=== PATIENT | male | born 1970 | race American Indian/Alaskan Native ===

== ENCOUNTER 2018-10-09 10:27 | Inpatient (IN) | payer MEDICAID ==
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
[2018-10-09] MEDS ORDERED: SUBLIMAZE IV ONE (10:52)
[2018-10-09] MEDS ORDERED: NITRO-BID 2% TP ONE (10:52)
[2018-10-09] MEDS ORDERED: ZOFRAN IV ONE (10:52)
[2018-10-09] MEDS ORDERED: ASPIRIN PO ONE (10:53)
--- NOTE | 2018-10-09 11:34 | XRay Report ---
AP CHEST: HISTORY: chest pain No comparison. Moderate cardiomegaly, moderate pulmonary venous congestion and small to medium right pleural effusion are identified. There is compressive atelectasis at the right lung base. Otherwise, the lungs are generally clear. No pneumothorax. IMPRESSION: Moderate CHF.
[2018-10-09 11:53] LABS: Basophils % (Auto) 0.7 % (0.0-1.8); Eosinophils # (Auto) 0.2 K/mm3 (0.0-0.4); Eosinophils % (Auto) 4.6 % (0.0-4.3); Hematocrit 25.8 % (35.5-45.6); Hemoglobin 8.4 gm/dl (11.8-15.2); Lymphocytes # (Auto) 0.5 K/mm3 (1.2-5.4); Mean Corpuscular HGB Conc 32 % (32-34); Mean Corpuscular Volume 85 fl (84-94); Monocytes # (Auto) 0.4 K/mm3 (0.0-0.8); Monocytes % (Auto) 12.1 % (0.0-7.3); Platelet Count 296 K/mm3 (140-440); Red Blood Count 3.03 M/mm3 (3.65-5.03); Red Cell Distribution Width 18.7 % (13.2-15.2)
[2018-10-09 11:54] LABS: Creatine Kinase MB 20.5 ng/mL (0.0-4.0)
[2018-10-09 11:55] LABS: Calcium 8.4 mg/dL (8.4-10.2)
[2018-10-09 12:01] LABS: INR 0.94 (0.87-1.13)
[2018-10-09 12:02] LABS: Partial Thromboplastin Time 42.8 Sec. (24.2-36.6)
[2018-10-09 12:10] LABS: Chol/HDL Ratio 1.57 %
--- NOTE | 2018-10-09 12:40 | History and Physical Report ---
History of Present Illness Chief complaint: Confusion, and chest pain History of present illness: 48 YO Male currently an inpatient at [facility] for Psychosis with Obesity, HTN, DM, HLD, Anemia, Systolic CHF presents to ED for evaluation. The patient is confused and lethargic at time of exam. Pt is unable to provide detailed history. Pt history taken from EMS as well as ED Staff, and [facility] staff. As per staff, the patient reported chest pain to [facility] staff. EMS notified and patient was subsequently transported to [facility] for further care and evaluation. Pt seen and evaluated in ED and found to have ARF, ACS, CHF as well as NSTEMI. Pt found to be hypotensive in ED with systolic BP in the 80's. Pt initiated on IV pressor support. Pt admitted to ICU. Cardiology team consulted. Past History Past Medical History: diabetes, heart failure, hypertension, hyperlipidemia Past Surgical History: Other (Left Hip surgery) Social history: single. denies: smoking, alcohol abuse, prescription drug abuse Family history: diabetes, hypertension Medications and Allergies Allergies Allergy/AdvReac Type Severity Reaction Status Date / Time No Known Allergies Allergy Unverified 10/09/18 10:44 Home Medications Medication Instructions Recorded Confirmed Last Taken Type Carvedilol [Coreg] 3.125 mg PO BID 10/09/18 10/09/18 Unknown History Divalproex [Darby PADRON] 500 mg PO BID 10/09/18 10/09/18 Unknown History Ferrous Sulfate [Feosol] 325 mg PO QDAY 10/09/18 10/09/18 Unknown History Furosemide [Lasix] 80 mg PO DAILY 10/09/18 10/09/18 Unknown History Gabapentin [Neurontin] 300 mg PO Q8HR 10/09/18 10/09/18 Unknown History ISOSORBIDE MONOnitrate [Imdur ER] 30 mg PO DAILY 10/09/18 10/09/18 Unknown History Insulin Glargine,Hum.rec.anlog 40 units SQ QHS 10/09/18 10/09/18 Unknown History [Lantus] Magnesium Oxide [Mag-Ox] 400 mg PO DAILY 10/09/18 10/09/18 Unknown History Simvastatin [Zocor TAB] 20 mg PO QHS 10/09/18 10/09/18 Unknown History Sulfamethoxazole/Trimethoprim 1 each PO BID 10/09/18 10/09/18 Unknown History [Bactrim DS TAB] glipiZIDE [Glipizide] 10 mg PO DAILY 10/09/18 10/09/18 Unknown History hydrALAZINE [Apresoline TAB] 100 mg PO BID 10/09/18 10/09/18 Unknown History risperiDONE [RisperDAL] 1 mg PO QHS 10/09/18 10/09/18 Unknown History Active Meds: Active Medications Norepinephrine (Levophed Drip 4 Mg/Ns 250 Ml) 4 mg in 250 mls @ 7.5 mls/hr IV TITR JAMIL; Protocol Review of Systems ROS unobtainable: due to mental status Exam - Constitutional Vitals: Temp Pulse Resp BP Pulse Ox 98.2 F 45 L 9 L 85/49 98 10/09/18 10:39 10/09/18 12:16 10/09/18 12:16 10/09/18 12:16 10/09/18 12:16 General appearance: Present: mild distress, obese - EENT Eyes: Present: miosis ENT: hearing intact, clear oral mucosa - Neck Neck: Present: supple, normal ROM - Respiratory Respiratory effort: labored Respiratory: bilateral: diminished, rhonchi - Cardiovascular Heart Sounds: Present: S1 & S2. Absent: rub, click - Extremities Extremity abnormal: edema Peripheral Pulses: within normal limits - Abdominal General gastrointestinal: Present: soft, non-tender, non-distended, normal bowel sounds Male genitourinary: Present: normal - Integumentary Integumentary: Present: clear, warm, dry - Musculoskeletal Musculoskeletal: generalized weakness - Psychiatric Psychiatric: no appropriate mood/affect, no intact judgment & insight, no memory intact - Neurologic Neurologic: no focal deficits, no gait normal Results - Labs CBC & Chem 7: 10/09/18 11:22 10/09/18 11:22 Labs: Abnormal lab results 10/09/18 10/09/18 10/09/18 Range/Units 11:22 11:22 11:22 WBC 3.3 L (4.5-11.0) K/mm3 RBC 3.03 L (3.65-5.03) M/mm3 Hgb 8.4 L (11.8-15.2) gm/dl Hct 25.8 L (35.5-45.6) % RDW 18.7 H (13.2-15.2) % [place] % (Auto) 12.1 H (0.0-7.3) % Eos % (Auto) 4.6 H (0.0-4.3) % Lymph # 0.5 L (1.2-5.4) K/mm3 APTT 42.8 H (24.2-36.6) Sec. Potassium 5.2 H (3.6-5.0) mmol/L Chloride 108.2 H (98-107) mmol/L BUN 49 H (9-20) mg/dL Creatinine 1.9 H (0.8-1.5) mg/dL Glucose 153 H (75-100) mg/dL Total Creatine Kinase 481 H (55-170) units/L CK-MB (CK-2) 20.5 H (0.0-4.0) ng/mL CK-MB (CK-2) Rel Index 4.2 H (0-4) Troponin T 0.153 H* (0.00-0.029) ng/mL NT-Pro-B Natriuret Pep 2963 H (0-450) pg/mL LDL Cholesterol Direct 49 L (50-130) mg/dL HDL Cholesterol 73 H (40-59) mg/dL Assessment and Plan - Patient Problems (1) NSTEMI (non-ST elevated myocardial infarction) Current Visit: Yes Status: Acute Plan to address problem: Cardiology consulted in ED, serial cardiac enzymes, serial ekg, echo, heparin drip, cardiology consulted in ED, Continue IV pressor support to maintain MAP greater than or equal to 60 The high probability of a clinically significant, sudden or life threatening deterioration of the [cardiac, neuro, renal] system(s) required my full and direct attention, intervention and personal management. The aggregate critical care time was [65] minutes. This time is in addition to time spent performing r eported procedures but includes the following: [x] Data Review and interpretation [x] Patient assessment and monitoring of vital signs [x] Documentation [x] Medication orders and management (2) ARF (acute renal failure) with tubular necrosis Current Visit: Yes Status: Acute Plan to address problem: IVf resuscitation as tolerated, supportive care, monitor uop q shift, (3) Encephalopathy Current Visit: Yes Status: Acute Plan to address problem: CT Head, neuro checks, aspiration precautions, seizure precautions. (4) ACS (acute coronary syndrome) Current Visit: Yes Status: Acute Plan to address problem: Admit to ICU, serial cardiac enzymes, Serial EKG, telemetry, morphine, supplemental oxygen,nitro, aspirin, cardiology consulted in ED. (5) CHF (congestive heart failure) Current Visit: Yes Status: Acute Qualifiers: Heart failure type: systolic Heart failure chronicity: acute Qualified Code(s): I50.21 - Acute systolic (congestive) heart failure Plan to address problem: Admit to ICU, Cardiology consulted in ED, Echo, strict I/O, monitor uop q shift, daily weight, chest x ray, BNP, supplemental oxygen, diuresis as tolerated, afterload reduction. (6) DVT prophylaxis Current Visit: Yes Status: Acute Plan to address problem: SCD to BLE while in bed.
[2018-10-09] MEDS ORDERED: SODIUM CHLORIDE FLUSH SYRINGE 10 ML IV PRN ×2 (13:00→14:11)
[2018-10-09] MEDS ORDERED: LEVOPHED DRIP 4 MG/NS 250 ML 4 MG/250 ML BAG IV SCH (13:00)
[2018-10-09] MEDS ORDERED: NACL 0.9% 1000 ML 2,000 ML ONE (13:27)
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
[2018-10-09] MEDS ORDERED: HEPARIN/ 0.45% NACL-25,000 UNIT/500 ML 25,000 UNIT/500 ML BAG IV SCH (15:00)
[2018-10-09 15:07] LABS: Hematocrit 26.2 % (35.5-45.6); Hemoglobin 8.2 gm/dl (11.8-15.2); INR 0.94 (0.87-1.13)
[2018-10-09 15:08] LABS: Partial Thromboplastin Time 42.4 Sec. (24.2-36.6)
--- NOTE | 2018-10-09 16:30 | Cat Scan Report ---
FINAL REPORT EXAM: CT HEAD/BRAIN WO CON HISTORY: confusion TECHNIQUE: CT head without contrast PRIORS: None. FINDINGS: No acute intra-axial or extra-axial hemorrhage is identified. There is no evidence of midline shift or mass effect. The ventricles and sulci are within normal limits. Maher-white matter differentiation is intact. No acute parenchymal abnormalities seen. Bony calvarium is grossly intact. Visualized portions of the mastoids and paranasal sinuses are unre markable. IMPRESSION: Negative CT head
[2018-10-09] MEDS ORDERED: NACL 0.9% 1000 ML 1,000 ML ONE (17:43)
[2018-10-09] MEDS ORDERED: PRAVACHOL PO SCH (22:00)
[2018-10-09] MEDS ORDERED: NON-FORMULARY (Simvastatin 20 MG) PO SCH (22:00)
[2018-10-10] MEDS: NEURONTIN PO SCH ×4 (00:42→22:06)
[2018-10-10] MEDS: SODIUM CHLORIDE FLUSH SYRINGE 10 ML IV SCH ×3 (00:42→22:07)
[2018-10-10] MEDS: LANTUS SUB-Q SCH ×2 (00:43→22:03)
[2018-10-10] MEDS: PRAVACHOL PO SCH ×2 (00:43→22:07)
[2018-10-10] MEDS: RisperDAL PO SCH ×2 (00:43→22:06)
[2018-10-10] MEDS ORDERED: D5W 1,000 ML IV SCH (01:00)
[2018-10-10 06:28] LABS: Basophils % (Auto) 0.6 % (0.0-1.8); Eosinophils # (Auto) 0.2 K/mm3 (0.0-0.4); Eosinophils % (Auto) 5.8 % (0.0-4.3); Hematocrit 25.9 % (35.5-45.6); Hemoglobin 8.2 gm/dl (11.8-15.2); Lymphocytes # (Auto) 0.5 K/mm3 (1.2-5.4); Lymphocytes % (Auto) 16.4 % (13.4-35.0); Mean Corpuscular HGB Conc 32 % (32-34); Mean Corpuscular Volume 87 fl (84-94); Monocytes # (Auto) 0.4 K/mm3 (0.0-0.8); Monocytes % (Auto) 13.2 % (0.0-7.3); Platelet Count 307 K/mm3 (140-440); Red Blood Count 2.99 M/mm3 (3.65-5.03); Red Cell Distribution Width 19.2 % (13.2-15.2)
[2018-10-10 06:36] LABS: Calcium 8.1 mg/dL (8.4-10.2)
[2018-10-10] MEDS ORDERED: MAG-OX PO SCH (10:00)
[2018-10-10] MEDS: FEOSOL PO SCH (10:57)
[2018-10-10] MEDS: ASPIRIN PO SCH (10:57)
--- NOTE | 2018-10-10 10:58 | Consultation ---
History of Present Illness Consult date: 10/10/18 Requesting physician: MARANDA HAYWOOD Reason for consult: other (NSTEMI; SHOCK) History of present illness: PULMONARY/CCM CONSULT NOTE (Full dictation # [id number]) Please see dictated notes for full details Past History Past Medical History: diabetes, heart failure, hypertension, hyperlipidemia Past Surgical History: Other (Left Hip surgery) Social history: single. denies: smoking, alcohol abuse, prescription drug abuse Family history: diabetes, hypertension Medications and Allergies Allergies Allergy/AdvReac Type Severity Reaction Status Date / Time No Known Allergies Allergy Unverified 10/09/18 10:44 Home Medications Medication Instructions Recorded Confirmed Last Taken Type Carvedilol [Coreg] 3.125 mg PO BID 10/09/18 10/09/[address] [Leonardo DURAN] 500 mg PO BID 10/09/18 10/09/18 Unknown History Ferrous Sulfate [Feosol] 325 mg PO QDAY 10/09/18 10/09/18 Unknown History Furosemide [Lasix] 80 mg PO DAILY 10/09/18 10/09/18 Unknown History Gabapentin [Neurontin] 300 mg PO Q8HR 10/09/18 10/09/18 Unknown History ISOSORBIDE MONOnitrate [Imdur ER] 30 mg PO DAILY 10/09/18 10/09/18 Unknown History Insulin Glargine,Hum.rec.anlog 40 units SQ QHS 10/09/18 10/09/18 Unknown History [Lantus] Magnesium Oxide [Mag-Ox] 400 mg PO DAILY 10/09/18 10/09/18 Unknown History Simvastatin [Zocor TAB] 20 mg PO QHS 10/09/18 10/09/18 Unknown History Sulfamethoxazole/Trimethoprim 1 each PO BID 10/09/18 10/09/18 Unknown History [Bactrim DS TAB] glipiZIDE [Glipizide] 10 mg PO DAILY 10/09/18 10/09/18 Unknown History hydrALAZINE [Apresoline TAB] 100 mg PO BID 10/09/18 10/09/18 Unknown History risperiDONE [RisperDAL] 1 mg PO QHS 10/09/18 10/09/18 Unknown History Active Meds: Active Medications Aspirin (Aspirin) 325 mg PO QDAY JAMIL Divalproex Sodium (Leonardo Duran) 500 mg PO BID [facility] Last Admin: 10/10/18 00:43 Dose: Not Given Documented by: Ferrous Sulfate (Feosol) 325 mg PO QDAY JAMIL Gabapentin (Neurontin) 300 mg PO Q8HR [facility] Last Admin: 10/10/18 07:01 Dose: Not Given Documented by: Norepinephrine (Levophed Drip 4 Mg/Ns 250 Ml) 4 mg in 250 mls @ 7.5 mls/hr IV TITR JAMIL; Protocol Last Titration: 10/10/18 03:14 Dose: 2 mcg/min, 7.5 mls/hr Documented by: Heparin Sodium/Sodium Chloride (Heparin/ 0.45% Nacl-25,000 Unit/500 Ml) 25,000 unit in 500 mls @ 20 mls/hr IV TITRATE JAMIL; Protocol Last Titration: 10/10/18 05:00 Dose: 1,100 units/hr, 22 mls/hr Documented by: Dextrose (D5w) 1,000 mls @ 75 mls/hr IV DIRECT [facility] Last Infusion: 10/10/18 06:30 Dose: 100 mls/hr Documented by: Insulin Glargine (Lantus) 40 units SUB-Q QHS [facility] Last Admin: 10/10/18 00:43 Dose: Not Given Documented by: Pravastatin Sodium (Pravachol) 40 mg PO QHS [facility] Last Admin: 10/10/18 00:43 Dose: Not Given Documented by: Risperidone (Risperdal) 1 mg PO QHS [facility] Last Admin: 10/10/18 00:43 Dose: Not Given Documented by: Sodium Chloride (Sodium Chloride Flush Syringe 10 Ml) 10 ml IV BID [facility] Last Admin: 10/10/18 00:42 Dose: Not Given Documented by: Sodium Chloride (Sodium Chloride Flush Syringe 10 Ml) 10 ml IV PRN PRN PRN Reason: LINE FLUSH Physical Examination Vital signs: Vital Signs Temp Pulse Resp BP Pulse Ox 98.2 F 51 L 16 110/68 99 10/09/18 10:39 10/09/18 10:39 10/09/18 10:39 10/09/18 10:39 10/09/18 10:39 Results - Laboratory Findings CBC and BMP: 10/10/18 05:00 10/10/18 05:00 PT/INR, D-dimer PT 13.0 Sec. (12.2-14.9) 10/09/18 14:25 INR 0.94 (0.87-1.13) 10/09/18 14:25 Abnormal lab findings: Abnormal Labs 10/09/18 10/09/18 10/09/18 11:22 11:22 11:22 WBC 3.3 L RBC 3.03 L Hgb 8.4 L Hct 25.8 L MCH RDW 18.7 H Boyd % (Auto) 12.1 H Eos % (Auto) 4.6 H Lymph # 0.5 L APTT 42.8 H Heparin Anti-Xa Level Potassium 5.2 H Chloride 108.2 H BUN 49 H Creatinine 1.9 H Glucose 153 H POC Glucose Calcium Total Creatine Kinase 481 H CK-MB (CK-2) 20.5 H CK-MB (CK-2) Rel Index 4.2 H Troponin T 0.153 H* NT-Pro-B Natriuret Pep 2963 H LDL Cholesterol Direct 49 L HDL Cholesterol 73 H 10/09/18 10/09/18 10/09/18 13:43 14:25 14:25 WBC RBC Hgb 8.2 L Hct 26.2 L MCH RDW Boyd % (Auto) Eos % (Auto) Lymph # APTT 42.4 H Heparin Anti-Xa Level Potassium Chloride BUN Creatinine Glucose POC Glucose 167 H Calcium Total Creatine Kinase CK-MB (CK-2) CK-MB (CK-2) Rel Index Troponin T NT-Pro-B Natriuret Pep LDL Cholesterol Direct HDL Cholesterol 10/09/18 10/09/18 10/09/18 17:28 20:56 21:23 WBC RBC Hgb Hct MCH RDW Boyd % (Auto) Eos % (Auto) Lymph # APTT Heparin Anti-Xa Level 0.28 L Potassium Chloride BUN Creatinine Glucose POC Glucose Calcium Total Creatine Kinase CK-MB (CK-2) CK-MB (CK-2) Rel Index Troponin T 0.136 H* 0.139 H* NT-Pro-B Natriuret Pep LDL Cholesterol Direct HDL Cholesterol 10/10/18 10/10/18 10/10/18 00:10 05:00 05:00 WBC 3.3 L RBC 2.99 L Hgb 8.2 L Hct 25.9 L MCH 27 L RDW 19.2 H Boyd % (Auto) 13.2 H Eos % (Auto) 5.8 H Lymph # 0.5 L APTT Heparin Anti-Xa Level Potassium 5.6 H Chloride 110.8 H BUN 50 H Creatinine 2.2 H Glucose 52 L POC Glucose 60 L Calcium 8.1 L Total Creatine Kinase CK-MB (CK-2) CK-MB (CK-2) Rel Index Troponin T NT-Pro-B Natriuret Pep LDL Cholesterol Direct HDL Cholesterol 10/10/18 06:11 WBC RBC Hgb Hct MCH RDW Boyd % (Auto) Eos % (Auto) Lymph # APTT Heparin Anti-Xa Level Potassium Chloride BUN Creatinine Glucose POC Glucose 57 L Calcium Total Creatine Kinase CK-MB (CK-2) CK-MB (CK-2) Rel Index Troponin T NT-Pro-B Natriuret Pep LDL Cholesterol Direct HDL Cholesterol
--- NOTE | 2018-10-10 11:00 | Progress Note ---
Assessment and Plan Assessment: Acute heart failure Altered mental status - head CT with NAF MAXIMO / hyperkalemia Hypotension - requiring vasopressor support NSTEMI type II Sinus bradycardia Anemia HTN DM HLP ? h/o psych disorder Plan: Troponin elevation c/w NSTEMI type II. ECG with NAF, pt denies chest pain. D/c heparin gtt. Serum Cr increased this AM. Pt would benefit from IV diuretics once renal indices permit. Recommend nephrology consultation per primary. Repeat BMP in AM. Await echo. Wean vasopressors as tolerated. The patient has been seen in conjunction with Dr. Berkowitz who agrees with the assessment and plan of care. Subjective Date of service: 10/10/18 Principal diagnosis: HF Interval history: pt resting in bed, remains lethargic but more alert today. no current complaints. wants to eat. levophed gtt infusing. Objective Last Vital Signs Temp 93.7 F L 10/10/18 08:00 Pulse 67 10/10/18 09:00 Resp 15 10/10/18 09:00 BP 108/83 10/10/18 09:00 Pulse Ox 95 10/10/18 09:00 - Physical Examination General: No Apparent Distress HEENT: Positive: PERRL, Normocephaly, Mucus Membranes Moist Neck: Positive: neck supple, trachea midline Cardiac: Positive: Reg Rate and Rhythm, S1/S2 Lungs: Positive: Decreased Breath Sounds Neuro: Positive: Grossly Intact Abdomen: Negative: Tender Musculoskeletal: No Pain Extremities: Present: +2 Edema (BLE pitting, weeping ) - Labs and Meds Cardiac Enzymes 10/09/18 Range/Units 11:22 CK-MB (CK-2) 20.5 H (0.0-4.0) ng/mL Coagulation 10/09/18 10/09/18 Range/Units 11:22 14:25 PT 13.0 13.0 (12.2-14.9) Sec. INR 0.94 0.94 (0.87-1.13) APTT 42.8 H 42.4 H (24.2-36.6) Sec. Lipids 10/09/18 Range/Units 11:22 Triglycerides 24 (2-149) mg/dL Cholesterol 115 (50-199) mg/dL HDL Cholesterol 73 H (40-59) mg/dL Cholesterol/HDL Ratio 1.57 % CBC 0110/09/18 10/10/18 Range/Units 11:22 14:25 05:00 WBC 3.3 L 3.3 L (4.5-11.0) K/mm3 RBC 3.03 L 2.99 L (3.65-5.03) M/mm3 Hgb 8.4 L 8.2 L 8.2 L (11.8-15.2) gm/dl Hct 25.8 L 26.2 L 25.9 L (35.5-45.6) % Plt Count 296 296 307 (140-440) K/mm3 Lymph # 0.5 L 0.5 L (1.2-5.4) K/mm3 [place] # 0.4 0.4 (0.0-0.8) K/mm3 Eos # 0.2 0.2 (0.0-0.4) K/mm3 Baso # 0.0 0.0 (0.0-0.1) K/mm3 Comprehensive Metabolic Panel 10/09/18 10/10/18 Range/Units 11:22 05:00 Sodium 141 144 (137-145) mmol/L Potassium 5.2 H 5.6 H (3.6-5.0) mmol/L Chloride 108.2 H 110.8 H (98-107) mmol/L Carbon Dioxide 23 24 (22-30) mmol/L BUN 49 H 50 H (9-20) mg/dL Creatinine 1.9 H 2.2 H (0.8-1.5) mg/dL Glucose 153 H 52 L (75-100) mg/dL Calcium 8.4 8.1 L (8.4-10.2) mg/dL - Imaging and Cardiology EKG: report reviewed, image reviewed Echo: pending - Telemetry EKG Rhythm: Sinus Rhythm - EKG Sinus rhythms and dysrhythmias: sinus bradycardia
[2018-10-10] MEDS: D50W (25GM) Syringe IV PRN (11:31)
[2018-10-10] MEDS ORDERED: HEPARIN/ 0.45% NACL-25,000 UNIT/500 ML 25,000 UNIT/500 ML BAG IV SCH (12:00)
[2018-10-10] MEDS ORDERED: LEVAQUIN PO SCH (12:00)
[2018-10-10] MEDS: HumuLIN R SUB-Q SCH ×3 (12:13→22:03)
[2018-10-10] MEDS: PEPCID PO SCH (13:00)
[2018-10-10] MEDS: D5/0.45NS 1,000 ML IV SCH ×2 (13:01→22:56)
[2018-10-10] MEDS ORDERED: SODIUM BICARBONATE IV ONE (14:56)
--- NOTE | 2018-10-10 15:31 | Vascular Lab Report ---
FINAL REPORT EXAM: VL VENOUS DUPLEX LE BILAT HISTORY: swelling bilaterally TECHNIQUE: Maher scale with color flow and spectral waveform Doppler imaging. PRIORS: None. FINDINGS: There is no evidence of deep venous thrombosis in either lower extremity. Flow is demonstrated by color flow and spectral waveform Doppler imaging. There is appropriate augmentation and wall compression. IMPRESSION: There is no evidence for DVT in right or left lower extremity.
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
--- NOTE | 2018-10-10 15:50 | XRay Report ---
FINAL REPORT EXAM: XR CHEST 1V AP HISTORY: R arm PICC placement TECHNIQUE: Frontal chest radiograph. PRIORS: None. FINDINGS: Right upper extremity PICC tip lies in the region of the left brachiocephalic vein. The cardiac silho uette is enlarged. Patchy ground-glass opacities are seen throughout the right lung. There is likely bilateral pulmonary edema. Moderate right pleural effusion is seen. No pneumothorax. No acute osseous abnormality. IMPRESSION: 1. Right upper extremity PICC tip lying in the region of the left brachiocephalic vein. 2. Cardiomegaly with bilateral pulmonary edema and moderate right pleural effusion. Patchy right lung opacities may reflect atelectasis versus pneumonia.
[2018-10-10] MEDS ORDERED: KIONEX PR ONE (21:22)
--- NOTE | 2018-10-10 21:47 | Consultation ---
PULMONARY CRITICAL CARE CONSULTATION CONSULTING PHYSICIAN: Dr. Regalado. REASON FOR CONSULTATION: Shock and non-ST elevation myocardial infarction. CHIEF COMPLAINT AND HISTORY OF PRESENT ILLNESS: As follows: The patient is a 48-year-old -Swiss male with a past medical history significant amongst other things for a diagnosis of diabetes and heart failure, who was apparently a resident of [facility] for psychosis. He came into the Emergency Room, confused, lethargic, EMS staff reported patient complained of chest pain at [facility]. In the ER, he was found to have an acute kidney injury, acute coronary syndrome, was hypotensive, diagnosed with a non-ST elevation myocardial infarction and systolic blood pressures in the 80s. He was started on Levophed drip, brought up to the Intensive Care Unit where I stopped by to see him. When I stopped by to see him, he was resting in bed, still a little bit delirious if you ask me. He denied any chest pain. He denied palpitations. He denied prior nausea, vomiting, or overt aspiration. He denied any fevers or chills, but in reality, he was a poor historian. He has lower extremity swelling bilaterally that he states it is not new. That really is as much of the history of presentation as I have. PAST MEDICAL HISTORY: Diabetes, cardiomyopathy, hypertension, hyperlipidemia, history of psychosis, and history of seizures. He is obese. PAST SURGICAL HISTORY: He has had left hip surgery. MEDICATIONS: He was on at the time I stopped by to see him were reviewed. Pertinent medications included the following: Aspirin 325 mg p.o. daily, Depakote 500 mg p.o. b.i.d., Pepcid 20 mg p.o. daily, Feosol 325 mg p.o. daily, Neurontin 300 mg p.o. q.8 hours. He was on an IV heparin drip for the acute coronary syndrome. Levophed drip was going at 4 mcg per minute, Pravachol 40 mg p.o. at bedtime, Risperdal 1 mg p.o. at bedtime. ALLERGIES: No known drug allergies. DIET: Obese gentleman. Denies acute weight loss or gain in the preceding few weeks to months. FAMILY AND SOCIAL HISTORY: He was a resident of [facility] prior to coming here. Denies alcohol, tobacco, or illicit drug use or abuse. Family history is otherwise unknown. REVIEW OF SYSTEMS: No overt loss of consciousness. He had some seizure type activity. No gross hematochezia or melena. No gross hematuria or dysuria. No hematemesis. No hemoptysis since he has been here. He denied chest pains or palpitations when I saw him. Denies heat or cold intolerance. He did say he was thirsty, but denied polydipsia. Complete 13-system review of systems obtained as best as I could. Pertinent positives and/or negatives as in body of history above, otherwise they are noncontributory. PHYSICAL EXAMINATION: VITAL SIGNS: At initial presentation on the , his temperature is 98.2 Fahrenheit; however, the next temperature I see was earlier today it is 93.7 degrees Fahrenheit rectally. Again, presentation of vitals pulse was 51 at presentation, respiratory rate was 16, blood pressure 110/68, O2 sats were 99%, inspired oxygen concentration was not recorded. At the time I saw him was 98% on 2 liters nasal cannula. GENERAL: He is a middle-aged -Swiss male, lying in bed under warming blanket, normocephalic, atraumatic, talking to me when he does talk in full sentences with mildly increased respiratory effort at worst. HEAD, EYES, EARS, NOSE AND THROAT: He is anicteric. No conjunctival erythema. Oropharynx is moist. Mallampati #3 oropharynx. No gross jugular venous distention, no thyromegaly. Grossly, no palpable lymph nodes in the supraclavicular or submandibular lymph node chains. LUNGS: Auscultation of both lung gabriel unremarkable. Good bilateral air movement, slightly diminished left lower lobe air entry. No wheezing. HEART: Heart sounds 1 and 2 are heard. They were regular in rate and rhythm at the time of my evaluation without rubs or murmurs. ABDOMEN: Full, soft. Bowel sounds are positive, nontender. No palpable hepatosplenomegaly. EXTREMITIES: Without overt digital clubbing or cyanosis. He does have 2+ bipedal pitting edema. Dorsalis pedis pulses are weakly palpable bilaterally. NEUROLOGIC: Pupils are equal, round, about 3 mm, reactive to light. Extraocular muscles and movements were intact. He moved all 4 extremities spontaneously. Sensation was reduced in the feet bilaterally. SKIN: Poor turgor. He had what looked like ischemic type rashes to the right foot without any open sores. LABORATORY DATA: From my review are as follows: Admission white count 3300 with a hemoglobin of 8.4, hematocrit of 25.8, platelet count of 296. No manual differential. INR was 0.98. Serum sodium was 141, potassium 5.2, chloride 108, bicarbonate 23, BUN 49, creatinine 1.9, glucose 153. CPK was 481, CK-MB 20.5. Troponin is 0.153. BNP 2963, that was the peak of the troponin. His hemoglobin today is 8.2. Arterial blood gas just ordered shows a pH of 7.29, pCO2 of 47, pO2 of 65 that was on room air. Serum sodium 144, potassium 5.6, chloride 111 and bicarbonate 24, BUN is 50 and creatinine is up to 2.2, glucose was low earlier at 52. Radiographic studies have been reviewed. I have a chest x-ray from yesterday clearly shows small bilateral pleural effusions, gross cardiomegaly and interstitial edema pattern really. A CT scan of the brain was done, it was a negative CT scan of the head. ASSESSMENT: 1. Sepsis syndrome. 2. Shock, cardiogenic versus septic. 3. Acute encephalopathy. 4. Possible seizures. 5. History of diabetes. 6. Leukopenia. 7. Anemia that is normocytic. 8. Acute hypercapnic respiratory acidosis. 9. Hyperkalemia. 10. Acute kidney injury. 11. Non-ST elevation myocardial infarction. 12. Hypoglycemia. 13. Possible peripheral vascular disease. 14. Obesity. PLAN: Cardiology apparently has decided to stop the IV heparin, does not seem like they are going to do much more medical management will be the way forward for Cardiology. We will continue supplemental oxygen to keep sats greater than or equal to about 90% in this relatively sedentary patient; however, I will continue the IV heparin until we have done a venous thromboembolic disorder workup. A stat D-dimer level will be ordered, bilateral lower extremity Dopplers also going to be ordered. He has been started on GI prophylaxis. I will draw 2 sets of blood cultures and begin empiric Levaquin monotherapy. Nephrology evaluation will be in order in this patient with the acute worsening kidney injury and signs of volume overload. I do feel that gentle diuresis might actually be in order at some point in this gentleman, but we will wait to see the 2D echocardiogram and what his ejection fraction actually looks like. Levophed is being weaned to keep MAP greater than or equal to about 65 mmHg for now. We will change IV fluids to D5 half NS while he is still hypotensive and keep an eye on his sugars. He has been started on sliding scale insulin. Flu and pneumonia vaccination will be addressed per protocol. I will offer bilevel positive airway pressure ventilation therapy scheduled at bedtime with p.r.n. daytime use for likely obstructive sleep apnea. Thank you very much for the consult Dr. Regalado. We will follow along and make further recommendations as picture progresses/becomes clearer. He is critically ill on life-sustaining interventions including vasopressor support and supplemental oxygen at high risk for decompensation including the risk of from decompensation of the cardiopulmonary systems. I should also mention a stat EEG has been ordered to rule out active seizures and a Neurology consult has been placed. We will follow along. We will make further recommendations as picture progresses/becomes clearer. JOB# [id number] JAGUAR/TRUPTI NDIAYE
[2018-10-10 23:23] LABS: Bacteria,Urine 1+ /HPF (Negative); Bilirubin,Urine NEG (Negative); Blood,Urine NEG (Negative); Color,Urine Amber (Yellow); Hyaline Casts,Urine 1 /LPF; Mucus,Urine FEW /HPF
[2018-10-10 23:25] LABS: Creatinine,Urine 118.6 mg/dL (0.1-20.0); Protein/Creatinine Ratio,Urine 1.28
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
[2018-10-11 04:58] LABS: Hematocrit 27.9 % (35.5-45.6); Hemoglobin 8.7 gm/dl (11.8-15.2)
[2018-10-11 05:19] LABS: Calcium 7.6 mg/dL (8.4-10.2)
[2018-10-11] MEDS: NEURONTIN PO SCH ×3 (06:00→21:29)
[2018-10-11] MEDS ORDERED: KIONEX PO NR (06:36)
--- NOTE | 2018-10-11 08:57 | Consultation ---
History of Present Illness - Reason for Consult Consult date: 10/11/18 acute renal failure, hyperkalemia - History of Present Illness The patient is a 48 YO Male with history significant for Obesity, HTN, DM, HLD, Anemia, Systolic CHF and Psychosis who was brought into [facility] ER from [facility] for evaluation of AMS. Pt was unable to provide a detailed history. Patient reportedly had chest pain at [facility]. On further evaluation he was found to have low BP, MAXIMO, Hyperkalemia, Elevated troponin and volume overlaod. Pt admitted to ICU. Nephrology was consulted for worsening MAXIMO. Past History Past Medical History: diabetes, heart failure, hypertension, hyperlipidemia Past Surgical History: Other (Left Hip surgery) Social history: single. denies: smoking, alcohol abuse, prescription drug abuse Family history: diabetes, hypertension Medications and Allergies Allergies Allergy/AdvReac Type Severity Reaction Status Date / Time No Known Allergies Allergy Unverified 10/09/18 10:44 Home Medications Medication Instructions Recorded Confirmed Last Taken Type Carvedilol [Coreg] 3.125 mg PO BID 10/09/18 10/09/[address] [DepaKOTE DR] 500 mg PO BID 10/09/18 10/09/18 Unknown History Ferrous Sulfate [Feosol] 325 mg PO QDAY 10/09/18 10/09/18 Unknown History Furosemide [Lasix] 80 mg PO DAILY 10/09/18 10/09/18 Unknown History Gabapentin [Neurontin] 300 mg PO Q8HR 10/09/18 10/09/18 Unknown History ISOSORBIDE MONOnitrate [Imdur ER] 30 mg PO DAILY 10/09/18 10/09/18 Unknown History Insulin Glargine,Hum.rec.anlog 40 units SQ QHS 10/09/18 10/09/18 Unknown History [Lantus] Magnesium Oxide [Mag-Ox] 400 mg PO DAILY 10/09/18 10/09/18 Unknown History Simvastatin [Zocor TAB] 20 mg PO QHS 10/09/18 10/09/18 Unknown History Sulfamethoxazole/Trimethoprim 1 each PO BID 10/09/18 10/09/18 Unknown History [Bactrim DS TAB] glipiZIDE [Glipizide] 10 mg PO DAILY 10/09/18 10/09/18 Unknown History hydrALAZINE [Apresoline TAB] 100 mg PO BID 10/09/18 10/09/18 Unknown History risperiDONE [RisperDAL] 1 mg PO QHS 10/09/18 10/09/18 Unknown History Active Meds: Active Medications Aspirin (Aspirin) 325 mg PO QDAY [facility] Last Admin: 10/10/18 10:57 Dose: 325 mg Documented by: Dextrose (D50w (25gm) Syringe) 50 ml IV PRN PRN PRN Reason: Hypoglycemia Last Admin: 10/10/18 11:31 Dose: 50 ml Documented by: Dextrose (D50w (25gm) Vial) 50 gm IV ONCE ONE Stop: 10/11/18 07:39 Divalproex Sodium (Depakote Dr) 500 mg PO BID [facility] Last Admin: 10/10/18 22:10 Dose: 500 mg Documented by: Famotidine (Pepcid) 20 mg PO DAILY [facility] Last Admin: 10/10/18 13:00 Dose: 20 mg Documented by: Ferrous Sulfate (Feosol) 325 mg PO QDAY [facility] Last Admin: 10/10/18 10:57 Dose: 325 mg Documented by: Gabapentin (Neurontin) 300 mg PO Q8HR [facility] Last Admin: 10/11/18 06:00 Dose: 300 mg Documented by: Norepinephrine (Levophed Drip 4 Mg/Ns 250 Ml) 4 mg in 250 mls @ 7.5 mls/hr IV TITR [facility]; Protocol Last Titration: 10/10/18 12:02 Dose: 0 mcg/min, 0 mls/hr Documented by: Dextrose/Sodium Chloride (D5/0.45ns) 1,000 mls @ 100 mls/hr IV DIRECT JAMIL Stop: 10/11/18 21:59 Last Admin: 10/10/18 22:56 Dose: 100 mls/hr Documented by: Dextrose/Sodium Chloride (D5/0.45ns) 1,000 mls @ 50 mls/hr IV DIRECT JAMIL Calcium Gluconate 2,000 mg/ (Sodium Chloride) 120 mls @ 660 mls/hr IV ONCE ONE Stop: 10/11/18 07:48 Insulin Glargine (Lantus) 40 units SUB-Q QHS [facility] Last Admin: 10/10/18 22:03 Dose: Not Given Documented by: Insulin Human Regular (Humulin R) 0 units SUB-Q ACHS [facility]; Protocol Last Admin: 10/10/18 22:03 Dose: Not Given Documented by: Insulin Human Regular (Humulin R) 5 units SUB-Q ONCE ONE Stop: 10/11/18 07:39 Levofloxacin (Levaquin) 750 mg PO Q48HR [facility] Stop: 10/18/18 10:01 Last Admin: 10/10/18 15:02 Dose: 750 mg Documented by: Pravastatin Sodium (Pravachol) 40 mg PO QHS [facility] Last Admin: 10/10/18 22:07 Dose: 40 mg Documented by: Risperidone (Risperdal) 1 mg PO QHS [facility] Last Admin: 10/10/18 22:06 Dose: 1 mg Documented by: Sodium Bicarbonate (Sodium Bicarbonate) 50 meq IV ONCE ONE Stop: 10/11/18 07:39 Sodium Chloride (Sodium Chloride Flush Syringe 10 Ml) 10 ml IV BID [facility] Last Admin: 10/10/18 22:07 Dose: 10 ml Documented by: Sodium Chloride (Sodium Chloride Flush Syringe 10 Ml) 10 ml IV PRN PRN PRN Reason: LINE FLUSH Review of Systems ROS unobtainable: due to mental status (unable to obtain detalied ROS due to dysarthria) Exam - Vital Signs Vital signs: Vital Signs Temp Pulse Resp BP Pulse Ox 98.2 F 51 L 16 110/68 99 10/09/18 10:39 10/09/18 10:39 10/09/18 10:39 10/09/18 10:39 10/09/18 10:39 - General Appearance General appearance: well-developed, well-nourished, appears stated age, obese, other (not in distress) EENT: ATNC, PERRL, mucous membranes moist, hearing intact, vision intact Neck: Present: neck supple, trachea midline Respiratory: Rales Heart: regular, S1S2, no murmurs Gastrointestinal: Present: normoactive bowel sounds, obese. Absent: tenderness, distended Integumentary: warm and dry Neurologic: no asterixis, other (able to move extremities, conversing, extremity tremors noted, oriented to self, person, place and date) Musculoskeletal: Present: other (dependent and 1+ LE edema noted) Psychiatric: cooperative Results - Lab Results 10/11/18 04:31 10/11/18 04:31 Most recent lab results Calcium 7.6 mg/dL (8.4-10.2) L 10/11/18 04:31 Urine Creatinine 118.6 mg/dL (0.1-20.0) H 10/10/18 22:30 Urine Sodium 35 mmol/L 10/10/18 22:30 Urine Total Protein 152 mg/dL (5-11.8) H 10/10/18 22:30 - Image Kidney/bladder ultrasound: report reviewed Assessment and Plan 1. Acute kidney injury: MAXIMO likely Vasomotor / hemodynamic mediated in the setting of hypotension. Renal function continue to decline. UA and Renal US results noted. Currently on IV fluids. Hemodialysis today due to hyperkalemia. D/w patient about the indications, benefits and risks involved in hemodialysis. He was able to understand the treatment plan including hemodialysis and also the risks involved in the treatment and not doing hemodialysis. Called his and left VM. D/w . Vascular consulted for hemodialysis catheter placement. 2. FEN: On IV fluids. Hyperkalemia, HD today. 3. CHF exacerbation: Dobutamine drip. 4. Hypotension: Midodrine. 5. Anemia: Monitor.
[2018-10-11] MEDS ORDERED: NACL 0.9% 100 ML IV PRN ×2 (09:33→13:23)
[2018-10-11] MEDS ORDERED: ALBURX 25% (ALBUMIN) IV PRN (09:35)
--- NOTE | 2018-10-11 09:54 | Progress Note ---
Assessment and Plan Assessment: Acute HFrEF Cardiomyopathy - EF 35% Altered mental status - head CT with NAF Acute renal failure / hyperkalemia Hypotension NSTEMI type II - ECG with NAF, pt denies chest pain Sinus bradycardia Anemia HTN DM HLP ? h/o psych disorder Plan: Echo reviewed - EF 35%. Currently weaned off levophed. Initiate dobutamine at 2.5mcg/kg/min. Nephrology consultation in progress - for HD today pending vascular access. Psych consult pending. The patient has been seen in conjunction with Dr. Hernandez who agrees with the assessment and plan of care. Subjective Date of service: 10/11/18 Principal diagnosis: HF Interval history: pt resting in bed, remains lethargic. no current complaints. eating breakfast. levophed gtt currently weaned off. Objective Last Vital Signs Temp 98.8 F 10/11/18 03:31 Pulse 64 10/11/18 07:00 Resp 11 L 10/11/18 07:00 BP 99/65 10/11/18 07:00 Pulse Ox 98 10/11/18 07:00 - Physical Examination General: No Apparent Distress HEENT: Positive: PERRL, Normocephaly, Mucus Membranes Moist Neck: Positive: neck supple, trachea midline Cardiac: Positive: Reg Rate and Rhythm, S1/S2 Lungs: Positive: Decreased Breath Sounds Neuro: Positive: Grossly Intact Abdomen: Negative: Tender Musculoskeletal: No Pain Extremities: Present: +2 Edema (BLE pitting, weeping ) - Labs and Meds CBC 10/11/18 Range/Units 04:31 Hgb 8.7 L (11.8-15.2) gm/dl Hct 27.9 L (35.5-45.6) % Plt Count 347 (140-440) K/mm3 Comprehensive Metabolic Panel 10/11/18 Range/Units 04:31 Sodium 140 (137-145) mmol/L Potassium 6.6 H* (3.6-5.0) mmol/L Chloride 106.0 (98-107) mmol/L Carbon Dioxide 23 (22-30) mmol/L BUN 55 H (9-20) mg/dL Creatinine 2.9 H (0.8-1.5) mg/dL Glucose 80 (75-100) mg/dL Calcium 7.6 L (8.4-10.2) mg/dL - Imaging and Cardiology EKG: report reviewed, image reviewed Echo: pending - EKG Sinus rhythms and dysrhythmias: sinus bradycardia
[2018-10-11] MEDS ORDERED: D50W (25GM) Syringe IV ONE (10:00)
[2018-10-11] MEDS ORDERED: CALCIUM GLUCONATE 2,000 MG in NACL 0.9% 100 ML IV ONE (10:00)
[2018-10-11] MEDS ORDERED: HumuLIN R IV ONE (10:00)
[2018-10-11] MEDS ORDERED: DOBUTREX DRIP 500MG/D5W 250ML 500 MG/250 ML BAG IV SCH (10:00)
[2018-10-11] MEDS ORDERED: XYLOCAINE 2% INFILTRATI ONE (10:45)
[2018-10-11] MEDS ORDERED: HEPARIN 10,000 UNITS/10 ML ONE (10:45)
[2018-10-11] MEDS ORDERED: HEPARIN/NS 5000 UNIT/500ML(CATH LAB) 500 ML IR ONE (10:45)
[2018-10-11] MEDS ORDERED: SUBLIMAZE ONE (10:46)
[2018-10-11] MEDS ORDERED: NACL 0.9% 250ML 250 ML ONE (10:46)
[2018-10-11] MEDS ORDERED: VERSED ONE (10:46)
--- NOTE | 2018-10-11 11:15 | Ultrasound Report ---
Renal ultrasound: Acute renal failure. The overall quality of the exam is somewhat limited due to shadowing from overlying structures. The approximate length of the right kidney is 12.3 cm. The parenchyma appears to be of generally normal thickness. No overt evidence of renal mass nor hydronephrosis. No calculus noted. The echogenicity of the kidney appears generally normal. The length of the left kidney is 12.7 cm and the findings are generally the same as on the right side. Imaging of the urinary bladder is grossly normal. Impression No significant findings on this compromised exam.
--- NOTE | 2018-10-11 11:29 | Progress Note ---
Assessment and Plan Severe Sepsis syndrome. Shock (cardiogenic versus septic) Acute encephalopathy. Possible seizures. History of diabetes CMOP Leukopenia. Anemia that is normocytic. Acute hypercapnic respiratory acidosis. Hyperkalemia. Acute kidney injury. Non-ST elevation myocardial infarction. Hypoglycemia. Possible peripheral vascular disease. Obesity. - will hold full anticoagulation from a VTE standpoint but i will get a VQ scan once more stable - lower extremity dopplers negative - continue vasopressors to keep MAP > 65 mmHg (especially with dialysis) - for vas-cath today - suppelemntal oxygen to keep sats > 90% - BIPAP qhs re: hypercapnia and possible - continue depakote (suspect for psych issues as against for seizures) - PT/OT as tolerated - mobility protocol for pressure ulcer prophylaxis - aspiration precautions - prn bronchodilators with pulmonary hygiene per RT - continue stress ulcer prophylaxis - continue empiric Antibiotics to complete course (Levaquin) - continue Mobility protocol for pressure ulcer prevention - continue other care per attending / other consultants .... re-evaluate in am & prn FULL CODE STATUS CONDITION: CRITICAL The high probability of a clinically significant, sudden or life-threatening deterioration of the [respiratory, cardiovascular, renal] system(s) required my full and direct attention, intervention and personal management. The aggregate critical care time was [34] minutes without overlap. Time includes spent on; [x] Data Review and interpretation [x] Patient assessment and monitoring of vital signs [x] Documentation [x] Medication orders and management Subjective Date of service: 10/11/18 Principal diagnosis: Severe Sepsis with Shock; Acute encephalopathy; MAXIMO; Diabetes II; CMOP Interval history: Patient is seen today for: Severe Sepsis syndrome; Shock (cardiogenic versus septic); Acute encephalopathy; Possible seizures; History of diabetes; CMOP Seen and examined at bedside; 24hour events reviewed; nursing and respiratory care staff consulted; no adverse overnight events reported to me; resting peacefully in bed; to go for vascath for dialysis; also to begin dobutamine re: HFrEF; denies acute chest pains or palpitations; no obvious seizure activity on EEG Objective Vital Signs - 12hr 10/10/18 10/10/18 10/10/18 23:30 23:36 23:40 Temperature 98.4 F Pulse Rate 66 65 Pulse Rate [ From Monitor] Respiratory 14 19 Rate Blood Pressure 115/58 72/43 O2 Sat by Pulse 96 Oximetry 10/10/18 10/10/18 10/10/18 23:44 23:46 23:50 Temperature Pulse Rate 66 66 65 Pulse Rate [ From Monitor] Respiratory 15 12 Rate Blood Pressure 72/43 109/52 O2 Sat by Pulse 99 Oximetry 10/11/18 10/11/18 10/11/18 00:00 00:10 00:20 Temperature Pulse Rate 65 65 63 Pulse Rate [ 76 From Monitor] Respiratory 15 17 10 L Rate Blood Pressure 109/52 97/62 O2 Sat by Pulse 99 95 97 Oximetry 10/11/18 10/11/18 10/11/18 00:30 00:40 00:50 Temperature Pulse Rate 61 60 60 Pulse Rate [ From Monitor] Respiratory 18 11 L 11 L Rate Blood Pressure 162/134 85/44 88/61 O2 Sat by Pulse 98 98 100 Oximetry 10/11/18 10/11/18 10/11/18 01:00 01:10 01:20 Temperature Pulse Rate 60 59 L 62 Pulse Rate [ From Monitor] Respiratory 11 L 11 L 14 Rate Blood Pressure 94/55 94/55 84/58 O2 Sat by Pulse 97 99 99 Oximetry 10/11/18 10/11/18 10/11/18 01:30 01:40 01:50 Temperature Pulse Rate 61 60 59 L Pulse Rate [ From Monitor] Respiratory 12 11 L 11 L Rate Blood Pressure 91/62 91/62 91/67 O2 Sat by Pulse 97 99 99 Oximetry 10/11/18 10/11/18 10/11/18 02:00 02:10 02:20 Temperature Pulse Rate 60 60 60 Pulse Rate [ From Monitor] Respiratory 11 L 16 15 Rate Blood Pressure 93/67 93/67 79/48 O2 Sat by Pulse 98 100 99 Oximetry 10/11/18 10/11/18 10/11/18 02:30 02:40 02:50 Temperature Pulse Rate 63 63 62 Pulse Rate [ From Monitor] Respiratory 11 L 13 21 Rate Blood Pressure 98/63 93/67 89/63 O2 Sat by Pulse 96 98 99 Oximetry 10/11/18 10/11/18 10/11/18 03:00 03:10 03:20 Temperature Pulse Rate 61 61 63 Pulse Rate [ From Monitor] Respiratory 19 16 18 Rate Blood Pressure 89/63 92/61 85/59 O2 Sat by Pulse 98 99 98 Oximetry 10/11/18 10/11/18 10/11/18 03:30 03:31 03:40 Temperature 98.8 F Pulse Rate 63 62 Pulse Rate [ From Monitor] Respiratory 11 L 11 L Rate Blood Pressure 94/65 94/65 O2 Sat by Pulse 96 99 Oximetry 10/11/18 10/11/18 10/11/18 03:50 04:00 04:10 Temperature Pulse Rate 60 61 61 Pulse Rate [ 99 H From Monitor] Respiratory 14 12 11 L Rate Blood Pressure 83/48 85/51 85/51 O2 Sat by Pulse 99 98 99 Oximetry 10/11/18 10/11/18 10/11/18 04:20 04:30 04:40 Temperature Pulse Rate 62 62 63 Pulse Rate [ From Monitor] Respiratory 10 L 12 17 Rate Blood Pressure 91/59 94/64 85/51 O2 Sat by Pulse 100 98 95 Oximetry 10/11/18 10/11/18 10/11/18 04:50 05:00 05:10 Temperature Pulse Rate 63 62 64 Pulse Rate [ From Monitor] Respiratory 13 16 16 Rate Blood Pressure 86/61 90/59 90/59 O2 Sat by Pulse 94 94 99 Oximetry 10/11/18 10/11/18 10/11/18 05:20 05:30 05:40 Temperature Pulse Rate 63 63 65 Pulse Rate [ From Monitor] Respiratory 14 13 10 L Rate Blood Pressure 94/60 97/67 94/60 O2 Sat by Pulse 99 97 98 Oximetry 10/11/18 10/11/18 10/11/18 05:50 06:00 06:10 Temperature Pulse Rate 63 66 65 Pulse Rate [ From Monitor] Respiratory 15 14 13 Rate Blood Pressure 103/59 99/61 99/61 O2 Sat by Pulse 98 98 99 Oximetry 10/11/18 10/11/18 10/11/18 06:20 06:30 06:40 Temperature Pulse Rate 65 64 63 Pulse Rate [ From Monitor] Respiratory 13 11 L 11 L Rate Blood Pressure 101/73 99/70 99/70 O2 Sat by Pulse 98 98 99 Oximetry 10/11/18 10/11/18 06:50 07:00 Temperature Pulse Rate 67 64 Pulse Rate [ From Monitor] Respiratory 15 11 L Rate Blood Pressure 94/65 99/65 O2 Sat by Pulse 99 98 Oximetry Constitutional: no acute distress, alert, other (middle aged AAM, normocephalic and atraumatic with mildly increased respiratory effort) Eyes: non-icteric ENT: oropharynx moist Neck: supple, no lymphadenopathy, no JVD Effort: mildly labored Ascultation: Bilateral: diminished breath sounds, rales (bases) Percussion: Bilateral: not dull Cardiovascular: regular rate and rhythm Gastrointestinal: normoactive bowel sounds, soft, non-tender, non-distended Integumentary: rash (feet) Extremities: no cyanosis, pulses normal, no ischemia or petechiae, edema (1++) Neurologic: normal mental status, non-focal exam, pupils equal and round, motor strength normal and, other (sensory numbness to feet) Psychiatric: mood appropriate, affect normal CBC and BMP: 10/11/18 04:31 10/11/18 04:31 ABG, PT/INR, D-dimer: ABG POC ABG pH 7.286 (7.35-7.45) L 10/10/18 12:22 POC ABG pCO2 47.3 (35-45) H 10/10/18 12:22 POC ABG pO2 65 (80-105) L 10/10/18 12:22 POC ABG HCO3 22.5 10/10/18 12:22 POC ABG Total CO2 24 10/10/18 12:22 POC ABG O2 Sat 90 10/10/18 12:22 PT/INR, D-dimer PT 13.0 Sec. (12.2-14.9) 10/09/18 14:25 INR 0.94 (0.87-1.13) 10/09/18 14:25 D-Dimer 927.57 ng/mlDDU (0-234) H 10/10/18 13:36 Abnormal lab findings: Abnormal Labs 10/09/18 10/09/18 10/09/18 11:22 11:22 11:22 WBC 3.3 L RBC 3.03 L Hgb 8.4 L Hct 25.8 L MCH RDW 18.7 H Cochran % (Auto) 12.1 H Eos % (Auto) 4.6 H Lymph # 0.5 L APTT 42.8 H D-Dimer Heparin Anti-Xa Level POC ABG pH POC ABG pCO2 POC ABG pO2 Potassium 5.2 H Chloride 108.2 H BUN 49 H Creatinine 1.9 H Glucose 153 H POC Glucose Hemoglobin A1c Lactic Acid Calcium Total Creatine Kinase 481 H CK-MB (CK-2) 20.5 H CK-MB (CK-2) Rel Index 4.2 H Troponin T 0.153 H* NT-Pro-B Natriuret Pep 2963 H LDL Cholesterol Direct 49 L HDL Cholesterol 73 H Urine Creatinine Urine Total Protein 10/09/18 10/09/18 10/09/18 13:43 14:25 14:25 WBC RBC Hgb 8.2 L Hct 26.2 L MCH RDW Cochran % (Auto) Eos % (Auto) Lymph # APTT 42.4 H D-Dimer Heparin Anti-Xa Level POC ABG pH POC ABG pCO2 POC ABG pO2 Potassium Chloride BUN Creatinine Glucose POC Glucose 167 H Hemoglobin A1c Lactic Acid Calcium Total Creatine Kinase CK-MB (CK-2) CK-MB (CK-2) Rel Index Troponin T NT-Pro-B Natriuret Pep LDL Cholesterol Direct HDL Cholesterol Urine Creatinine Urine Total Protein 10/09/18 10/09/18 10/09/18 17:28 20:56 21:23 WBC RBC Hgb Hct MCH RDW Cochran % (Auto) Eos % (Auto) Lymph # APTT D-Dimer Heparin Anti-Xa Level 0.28 L POC ABG pH POC ABG pCO2 POC ABG pO2 Potassium Chloride BUN Creatinine Glucose POC Glucose Hemoglobin A1c Lactic Acid Calcium Total Creatine Kinase CK-MB (CK-2) CK-MB (CK-2) Rel Index Troponin T 0.136 H* 0.139 H* NT-Pro-B Natriuret Pep LDL Cholesterol Direct HDL Cholesterol Urine Creatinine Urine Total Protein 10/10/18 10/10/18 10/10/18 00:10 05:00 05:00 WBC 3.3 L RBC 2.99 L Hgb 8.2 L Hct 25.9 L MCH 27 L RDW 19.2 H Cochran % (Auto) 13.2 H Eos % (Auto) 5.8 H Lymph # 0.5 L APTT D-Dimer Heparin Anti-Xa Level POC ABG pH POC ABG pCO2 POC ABG pO2 Potassium 5.6 H Chloride 110.8 H BUN 50 H Creatinine 2.2 H Glucose 52 L POC Glucose 60 L Hemoglobin A1c Lactic Acid Calcium 8.1 L Total Creatine Kinase CK-MB (CK-2) CK-MB (CK-2) Rel Index Troponin T NT-Pro-B Natriuret Pep LDL Cholesterol Direct HDL Cholesterol Urine Creatinine Urine Total Protein 10/10/18 10/10/18 10/10/18 05:00 06:11 11:30 WBC RBC Hgb Hct MCH RDW Cochran % (Auto) Eos % (Auto) Lymph # APTT D-Dimer Heparin Anti-Xa Level POC ABG pH POC ABG pCO2 POC ABG pO2 Potassium Chloride BUN Creatinine Glucose POC Glucose 57 L 48 L Hemoglobin A1c 8.2 H Lactic Acid Calcium Total Creatine Kinase CK-MB (CK-2) CK-MB (CK-2) Rel Index Troponin T NT-Pro-B Natriuret Pep LDL Cholesterol Direct HDL Cholesterol Urine Creatinine Urine Total Protein 10/10/18 10/10/18 10/10/18 12:22 13:36 13:36 WBC RBC Hgb Hct MCH RDW Cochran % (Auto) Eos % (Auto) Lymph # APTT D-Dimer 927.57 H Heparin Anti-Xa Level POC ABG pH 7.286 L POC ABG pCO2 47.3 H POC ABG pO2 65 L Potassium Chloride BUN Creatinine Glucose POC Glucose Hemoglobin A1c Lactic Acid 0.60 L Calcium Total Creatine Kinase CK-MB (CK-2) CK-MB (CK-2) Rel Index Troponin T NT-Pro-B Natriuret Pep LDL Cholesterol Direct HDL Cholesterol Urine Creatinine Urine Total Protein 10/10/18 10/10/18 10/10/18 16:42 21:12 22:30 WBC RBC Hgb Hct MCH RDW Cochran % (Auto) Eos % (Auto) Lymph # APTT D-Dimer Heparin Anti-Xa Level POC ABG pH POC ABG pCO2 POC ABG pO2 Potassium Chloride BUN Creatinine Glucose POC Glucose 122 H 119 H Hemoglobin A1c Lactic Acid Calcium Total Creatine Kinase CK-MB (CK-2) CK-MB (CK-2) Rel Index Troponin T NT-Pro-B Natriuret Pep LDL Cholesterol Direct HDL Cholesterol Urine Creatinine 118.6 H Urine Total Protein 152 H 10/11/18 10/11/18 04:31 04:31 WBC RBC Hgb 8.7 L Hct 27.9 L MCH RDW Cochran % (Auto) Eos % (Auto) Lymph # APTT D-Dimer Heparin Anti-Xa Level POC ABG pH POC ABG pCO2 POC ABG pO2 Potassium 6.6 H* Chloride BUN 55 H Creatinine 2.9 H Glucose POC Glucose Hemoglobin A1c Lactic Acid Calcium 7.6 L Total Creatine Kinase CK-MB (CK-2) CK-MB (CK-2) Rel Index Troponin T NT-Pro-B Natriuret Pep LDL Cholesterol Direct HDL Cholesterol Urine Creatinine Urine Total Protein Chest x-ray: image reviewed (mild volume overload patterm with small bilateral effusions also R>L) Allied health notes reviewed: nursing
--- NOTE | 2018-10-11 12:27 | Operative Report ---
Operative Report Operative Report: Exam: Ultrasound-guided placement of vas-cath Clinical indication: Acute renal failure Date: 10/11/2018 Procedure: Following an explanation of the risks, benefits and alternatives; written informed consent was obtained. The patient was brought to the angiographic suite and placed in supine position on his bed. His right groin was prepped and draped in usual sterile fashion. 1% lidocaine was used for anesthesia. Under ultrasound guidance, the right common femoral vein was cannulated with a 7 cm 18-gauge needle. A 0.035 guidewire was advanced centrally easily. The needle was removed and following serial dilation, 30 cm dialysis catheter was advanced over the guidewire and a bit centrally easily. The guidewire was removed. All 3 ports returned nonpulsatile blood. The catheter was securely flushed with sterile saline and locked with appropriate volumes of heparin. The catheter was passed into the skin surface using 2-0 Ethilon suture and a sterile dressing applied. The patient tolerated the procedure well. There were no immediate post procedure compensations. A minimal amount of sedation was administered under the guidance of radiologic nursing. Continuous cardiopulmonary monitoring was elected. Impression: Ultrasound guided placement of vas-cath by the right common femoral vein.
[2018-10-11] MEDS: HumuLIN R SUB-Q SCH ×3 (12:48→22:51)
[2018-10-11] MEDS: ASPIRIN PO SCH (12:48)
[2018-10-11] MEDS: FEOSOL PO SCH (12:49)
[2018-10-11] MEDS: PROAMATINE PO SCH ×3 (12:58→20:58)
[2018-10-11] MEDS: PEPCID PO SCH (12:58)
[2018-10-11] MEDS: SODIUM CHLORIDE FLUSH SYRINGE 10 ML IV SCH ×2 (12:59→21:29)
[2018-10-11] MEDS: D5/0.45NS 1,000 ML IV SCH (13:35)
[2018-10-11] MEDS ORDERED: NACL 0.9% 1000 ML 1,000 ML ONE (15:59)
[2018-10-11 16:02] LABS: Hepatitis B Surface Antigen Non-Reactive (Negative); Hepatitis C Virus Antibody Non-Reactive (NonReactive)
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
--- NOTE | 2018-10-11 18:28 | Physician Progress Note ---
SUBJECTIVE: The patient just had his EEG done. He was easily awakened. He is feeling much better. He is very calm, comfortable. He said that he feels great. He denied any symptoms. Previous EEG did not show any seizure activity. This was a light sleep pattern. OBJECTIVE: He is basically the same as before. There was no jerking episode. He is very calm. ASSESSMENT: Body movement are not seizures, but they are most likely associated with his overall psychogenic component. The patient also has multiple medical issues, which could be contributory to what he is having right now. RECOMMENDATION: Intensive medical care. About 2 psychiatric evaluations. The patient will be followed up by the next [facility] neurologist. JOB# [id number] SANDRA/TRUPTI
[2018-10-11] MEDS: HEPARIN SUB-Q SCH ×2 (19:36→21:28)
[2018-10-11 21:25] LABS: Alanine Aminotransferase 56 units/L (7-56); BUN/Creatinine Ratio 15; Blood Urea Nitrogen 37 mg/dL (9-20); Calcium 7.5 mg/dL (8.4-10.2); Hemolysis Index 1
[2018-10-11] MEDS: PRAVACHOL PO SCH (21:28)
[2018-10-11] MEDS: RisperDAL PO SCH (21:34)
[2018-10-11] MEDS ORDERED: D5/0.45NS 1,000 ML IV SCH (22:00)
[2018-10-11] MEDS: LANTUS SUB-Q SCH (22:52)
[2018-10-12 05:31] LABS: Calcium 7.6 mg/dL (8.4-10.2)
[2018-10-12] MEDS: HEPARIN SUB-Q SCH ×3 (06:17→21:22)
[2018-10-12] MEDS: NEURONTIN PO SCH ×3 (06:17→21:23)
[2018-10-12 10:50] LABS: Hematocrit 24.1 % (35.5-45.6); Hemoglobin 7.6 gm/dl (11.8-15.2)
[2018-10-12] MEDS: FEOSOL PO SCH (10:50)
[2018-10-12] MEDS: ASPIRIN PO SCH (10:50)
[2018-10-12] MEDS: PEPCID PO SCH (10:50)
[2018-10-12] MEDS: LEVAQUIN PO SCH (10:51)
[2018-10-12] MEDS: SODIUM CHLORIDE FLUSH SYRINGE 10 ML IV SCH ×2 (10:52→21:23)
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
--- NOTE | 2018-10-12 12:52 | Progress Note ---
Assessment and Plan Acute HFrEF Cardiomyopathy - EF 35% Altered mental status - head CT with NAF Acute renal failure / hyperkalemia Hypotension NSTEMI type II - ECG with NAF, pt denies chest pain Sinus bradycardia Anemia HTN DM HLP ? h/o psych disorder Plan: Echo reviewed - EF 35%. Currently weaned off levophed. Initiate dobutamine at 2.5mcg/kg/min. 10/12/2018>had femoral vascular access . B.p systolic 180 mm hg. Chart reviewed. Subjective Date of service: 10/12/18 Principal diagnosis: Severe Sepsis with Shock; Acute encephalopathy; MAXIMO; Diabetes II; CMOP Interval history: Patient is comfortable,in no acute distress. Objective Vital Signs Temp Pulse Pulse Resp BP Pulse Ox Pulse Ox 10/12/18 11:42 78 25 H 168/59 93 10/12/18 11:40 79 21 168/59 95 10/12/18 11:38 77 23 168/59 96 10/12/18 11:36 81 32 H 168/59 10/12/18 11:34 102 H 25 H 168/59 10/12/18 11:32 133 H 168/59 10/12/18 11:31 15 168/59 10/12/18 11:27 25 H 161/76 10/12/18 11:26 107 H 26 H 161/76 10/12/18 11:24 15 161/76 10/12/18 11:23 82 16 161/76 10/12/18 11:22 26 H 127/103 10/12/18 11:20 125 H 18 127/103 10/12/18 11:18 80 13 127/103 10/12/18 11:16 94 H 10 L 127/103 10/12/18 11:14 82 15 127/103 10/12/18 11:12 90 14 127/103 10/12/18 11:10 79 16 127/103 10/12/18 11:08 80 13 127/103 10/12/18 11:06 81 11 L 127/103 10/12/18 11:05 81 9 L 127/103 10/12/18 11:04 81 9 L 127/103 10/12/18 11:02 81 13 127/103 10/12/18 11:01 82 12 127/103 10/12/18 11:00 81 13 149/96 10/12/18 10:59 81 13 149/96 10/12/18 10:58 81 14 157/83 10/12/18 10:56 80 18 149/96 96 10/12/18 10:54 80 12 149/96 96 10/12/18 10:52 81 11 L 149/96 91 10/12/18 10:50 80 12 149/96 98 10/12/18 10:48 80 14 149/96 97 10/12/18 10:47 81 13 149/96 92 10/12/18 10:46 77 10 L 96 10/12/18 10:44 77 10 L 96 10/12/18 10:42 78 10 L 96 10/12/18 10:40 78 10 L 97 10/12/18 10:39 78 11 L 97 10/12/18 10:38 78 10 L 157/83 96 10/12/18 10:36 78 10 L 157/83 96 10/12/18 10:34 78 10 L 157/83 96 10/12/18 10:32 78 10 L 157/83 95 10/12/18 10:31 78 11 L 157/83 93 10/12/18 10:30 78 9 L 140/77 97 10/12/18 10:29 78 10 L 149/81 96 10/12/18 10:28 79 11 L 149/81 96 10/12/18 10:26 78 9 L 149/81 97 10/12/18 10:24 79 10 L 149/81 95 10/12/18 10:22 78 11 L 149/81 92 10/12/18 10:20 78 10 L 149/81 94 10/12/18 09:47 98 10/12/18 08:00 97.8 F 83 14 100 10/12/18 07:02 82 14 171/89 97 10/12/18 07:00 82 15 168/82 98 10/12/18 06:58 82 19 168/82 97 10/12/18 06:56 82 19 168/82 97 10/12/18 06:54 83 17 168/82 97 10/12/18 06:52 84 14 168/82 97 10/12/18 06:50 168/82 91 10/12/18 06:48 84 164/89 10/12/18 06:45 164/89 10/12/18 06:40 85 14 142/75 10/12/18 06:39 85 12 112/72 10/12/18 06:38 86 12 112/72 95 10/12/18 06:36 86 12 112/72 96 10/12/18 06:34 85 18 112/72 97 10/12/18 06:32 85 16 112/72 96 10/12/18 06:31 85 15 112/72 93 10/12/18 06:30 85 14 142/75 95 10/12/18 06:28 85 14 142/75 96 10/12/18 06:26 84 13 142/75 98 10/12/18 06:24 84 13 142/75 98 10/12/18 06:23 80 14 142/75 98 10/12/18 06:22 81 11 L 142/75 99 10/12/18 06:20 79 18 142/75 98 10/12/18 06:18 79 11 L 142/75 98 10/12/18 06:16 79 17 142/75 99 10/12/18 06:15 79 15 142/75 93 10/12/18 06:14 79 20 161/79 98 10/12/18 06:12 79 10 L 161/79 98 10/12/18 06:10 80 12 135/73 97 10/12/18 06:08 80 13 135/73 98 10/12/18 06:06 80 13 135/73 97 10/12/18 06:04 79 17 135/73 98 10/12/18 06:02 79 21 135/73 98 10/12/18 06:00 79 17 135/73 95 10/12/18 05:58 79 20 161/79 98 10/12/18 05:56 79 19 161/79 98 10/12/18 05:54 79 15 161/79 98 10/12/18 05:52 79 15 161/79 98 10/12/18 05:50 80 17 161/79 98 10/12/18 05:48 80 15 161/79 98 10/12/18 05:46 79 12 161/79 98 10/12/18 05:45 80 12 161/79 93 10/12/18 05:44 80 10 L 153/78 98 10/12/18 05:42 79 11 L 153/78 98 10/12/18 05:40 79 10 L 150/80 97 10/12/18 05:38 79 15 150/80 98 10/12/18 05:36 79 13 150/80 98 10/12/18 05:34 79 18 150/80 98 10/12/18 05:32 79 13 150/80 98 10/12/18 05:30 79 11 L 150/80 94 10/12/18 05:28 79 21 153/78 98 10/12/18 05:26 79 20 153/78 98 10/12/18 05:24 79 20 153/78 98 10/12/18 05:22 79 19 153/78 98 10/12/18 05:20 79 19 153/78 98 10/12/18 05:18 79 20 153/78 98 10/12/18 05:16 80 12 153/78 98 10/12/18 05:15 79 11 L 153/78 93 10/12/18 05:14 80 9 L 149/76 98 10/12/18 05:12 79 10 L 149/76 98 10/12/18 05:10 80 15 149/76 99 10/12/18 05:08 80 11 L 151/85 99 10/12/18 05:06 80 9 L 151/85 99 10/12/18 05:04 80 9 L 151/85 99 10/12/18 05:02 80 10 L 151/85 99 10/12/18 05:00 80 10 L 151/85 94 10/12/18 04:58 80 10 L 149/76 99 10/12/18 04:56 78 19 149/76 97 10/12/18 04:54 78 10 L 149/76 98 10/12/18 04:52 78 15 149/76 98 10/12/18 04:50 78 11 L 149/76 98 10/12/18 04:48 79 12 149/76 99 10/12/18 04:46 78 11 L 149/76 99 10/12/18 04:45 78 10 L 149/76 94 10/12/18 04:44 78 10 L 146/86 99 10/12/18 04:42 77 10 L 146/86 99 10/12/18 04:40 77 10 L 146/86 99 10/12/18 04:38 77 11 L 146/86 100 10/12/18 04:36 78 11 L 146/86 98 10/12/18 04:34 80 10 L 146/86 98 10/12/18 04:32 83 10 L 146/86 98 10/12/18 04:30 86 11 L 146/86 94 10/12/18 04:28 90 18 155/79 98 10/12/18 04:26 82 14 155/79 99 10/12/18 04:24 82 12 155/79 100 10/12/18 04:22 82 11 L 155/79 100 10/12/18 04:20 81 13 155/79 99 10/12/18 04:18 83 14 155/79 97 10/12/18 04:16 82 11 L 155/79 97 10/12/18 04:15 82 13 155/79 92 10/12/18 04:14 83 18 154/86 98 10/12/18 04:12 82 12 154/86 97 10/12/18 04:10 83 20 154/86 98 10/12/18 04:08 82 14 146/74 100 10/12/18 04:06 83 11 L 146/74 100 10/12/18 04:04 83 11 L 146/74 99 10/12/18 04:03 84 13 146/74 93 10/12/18 04:02 90 12 160/78 98 10/12/18 04:00 94 F L 85 83 20 160/78 98 10/12/18 03:58 84 19 160/78 97 10/12/18 03:56 85 13 160/78 97 10/12/18 03:54 82 11 L 160/78 98 10/12/18 03:52 82 11 L 160/78 99 10/12/18 03:50 82 13 160/78 99 10/12/18 03:48 83 11 L 160/78 99 10/12/18 03:46 84 10 L 160/78 94 10/12/18 03:44 83 17 132/85 98 10/12/18 03:42 85 11 L 132/85 99 10/12/18 03:40 85 11 L 132/85 99 10/12/18 03:38 79 21 132/85 100 10/12/18 03:37 82 15 154/86 99 10/12/18 03:36 82 12 154/86 98 10/12/18 03:34 83 13 154/86 98 10/12/18 03:32 83 13 154/86 98 10/12/18 03:30 83 12 154/86 93 10/12/18 03:28 85 23 146/77 98 10/12/18 03:26 86 15 146/77 98 10/12/18 03:24 86 14 146/77 98 10/12/18 03:22 89 18 146/77 99 10/12/18 03:20 82 18 146/77 97 10/12/18 03:18 84 10 L 146/77 97 10/12/18 03:16 82 11 L 146/77 94 10/12/18 03:15 82 11 L 146/77 90 10/12/18 03:14 82 11 L 132/85 96 10/12/18 03:12 82 13 132/85 96 10/12/18 03:10 82 13 132/85 96 10/12/18 03:08 83 19 132/85 96 10/12/18 03:06 84 17 132/85 95 10/12/18 03:04 86 13 132/85 96 10/12/18 03:03 86 19 132/85 90 10/12/18 03:02 87 16 146/71 93 10/12/18 03:01 87 25 H 146/71 98 10/12/18 03:00 87 18 146/71 95 10/12/18 02:58 85 14 146/71 90 10/12/18 02:56 85 23 146/71 95 10/12/18 02:54 85 13 146/71 95 10/12/18 02:52 84 13 146/71 94 10/12/18 02:50 83 11 L 146/71 95 10/12/18 02:28 79 9 L 127/65 94 10/12/18 02:26 79 9 L 127/65 94 10/12/18 02:24 79 11 L 127/65 95 10/12/18 02:22 79 9 L 127/65 94 10/12/18 02:20 79 10 L 127/65 93 10/12/18 02:18 79 10 L 127/65 94 10/12/18 02:16 79 10 L 127/65 93 10/12/18 02:15 79 10 L 127/65 91 10/12/18 02:14 79 9 L 130/68 94 10/12/18 02:12 79 9 L 130/68 94 10/12/18 02:10 79 14 130/68 94 10/12/18 02:08 79 10 L 130/68 94 10/12/18 02:06 80 15 130/68 95 10/12/18 02:04 80 21 130/68 93 10/12/18 02:02 81 15 130/68 94 10/12/18 02:00 81 15 134/71 95 10/12/18 01:58 81 14 134/71 94 10/12/18 01:56 81 18 134/71 94 10/12/18 01:54 81 15 134/71 93 10/12/18 01:52 82 14 134/71 94 10/12/18 01:50 82 17 134/71 92 10/12/18 01:48 82 13 134/71 93 10/12/18 01:46 83 14 134/71 92 10/12/18 01:45 83 15 134/71 90 10/12/18 01:44 82 17 147/67 95 10/12/18 01:42 82 20 147/67 94 10/12/18 01:40 82 19 147/67 93 10/12/18 01:38 82 16 147/67 92 10/12/18 01:36 82 17 147/67 93 10/12/18 01:34 82 19 131/62 92 10/12/18 01:32 82 19 131/62 93 10/12/18 01:30 83 20 131/62 90 10/12/18 01:28 83 20 151/77 95 10/12/18 01:26 83 18 151/77 94 10/12/18 01:24 84 21 151/77 94 10/12/18 01:22 85 24 151/77 93 10/12/18 01:20 84 15 151/77 91 10/12/18 01:18 84 17 151/77 95 10/12/18 01:16 85 12 151/77 93 10/12/18 01:15 85 12 151/77 91 10/12/18 01:14 85 15 147/69 96 10/12/18 01:12 85 14 147/69 99 10/12/18 01:10 81 10 L 147/69 100 10/12/18 01:08 81 10 L 147/69 99 10/12/18 01:06 81 9 L 147/69 99 10/12/18 01:04 81 11 L 147/69 99 10/12/18 01:02 80 10 L 147/67 99 10/12/18 01:00 81 10 L 147/67 95 10/12/18 00:58 81 9 L 157/74 99 10/12/18 00:56 82 9 L 157/74 99 10/12/18 00:54 82 9 L 157/74 99 10/12/18 00:52 82 12 157/74 99 10/12/18 00:50 82 9 L 157/74 99 10/12/18 00:48 82 10 L 157/74 99 10/12/18 00:46 82 11 L 157/74 97 10/12/18 00:45 82 11 L 157/74 95 10/12/18 00:44 81 10 L 147/69 100 10/12/18 00:42 82 11 L 147/69 100 10/12/18 00:40 81 11 L 147/69 100 10/12/18 00:38 82 9 L 147/69 100 10/12/18 00:36 82 11 L 147/69 100 10/12/18 00:34 82 10 L 147/69 100 10/12/18 00:32 82 10 L 147/69 100 10/12/18 00:30 81 10 L 147/69 97 10/12/18 00:28 82 10 L 140/60 100 10/12/18 00:26 81 10 L 140/60 100 10/12/18 00:24 82 10 L 140/60 100 10/12/18 00:22 82 10 L 140/60 100 10/12/18 00:20 81 11 L 140/60 100 10/12/18 00:18 82 10 L 140/60 100 10/12/18 00:16 82 10 L 140/60 100 10/12/18 00:15 82 10 L 140/60 97 10/12/18 00:14 82 10 L 157/67 100 10/12/18 00:12 81 11 L 157/67 100 10/12/18 00:10 82 11 L 157/67 100 10/12/18 00:08 82 11 L 157/67 100 10/12/18 00:06 82 10 L 157/67 100 10/12/18 00:04 81 11 L 157/67 100 10/12/18 00:02 82 11 L 157/67 100 10/12/18 00:00 94.4 F L 79 79 9 L 157/67 94 10/11/18 23:58 82 10 L 160/78 100 10/11/18 23:56 82 11 L 160/78 100 10/11/18 23:54 82 11 L 160/78 100 10/11/18 23:52 82 11 L 160/78 100 10/11/18 23:50 82 11 L 160/78 100 10/11/18 23:48 83 10 L 160/78 100 10/11/18 23:46 83 10 L 160/78 100 10/11/18 23:45 83 10 L 160/78 96 10/11/18 23:44 83 11 L 141/63 100 10/11/18 23:42 82 11 L 141/63 100 10/11/18 23:40 82 11 L 141/63 100 10/11/18 23:38 83 10 L 141/63 100 10/11/18 23:36 83 11 L 141/63 100 10/11/18 23:34 83 11 L 141/63 100 10/11/18 23:32 82 11 L 141/63 100 10/11/18 23:31 82 12 141/63 96 10/11/18 23:30 82 14 123/67 100 10/11/18 23:28 82 15 123/67 100 10/11/18 22:22 69 11 L 107/60 99 10/11/18 22:20 69 10 L 107/60 100 10/11/18 22:18 69 11 L 107/60 100 10/11/18 22:16 70 10 L 107/60 100 10/11/18 22:15 70 11 L 107/60 97 10/11/18 22:14 71 10 L 113/63 100 10/11/18 22:12 71 11 L 113/63 100 10/11/18 22:10 71 10 L 113/63 100 10/11/18 22:08 71 10 L 113/63 100 10/11/18 22:06 71 11 L 113/63 100 10/11/18 22:04 71 11 L 113/63 100 10/11/18 22:02 73 11 L 113/63 100 10/11/18 22:00 73 12 113/63 98 10/11/18 21:58 73 11 L 135/67 100 10/11/18 21:56 74 12 135/67 100 10/11/18 21:54 75 12 135/67 100 10/11/18 21:52 76 10 L 135/67 100 10/11/18 21:50 77 11 L 135/67 100 10/11/18 21:48 78 11 L 135/67 100 10/11/18 21:46 80 11 L 135/67 97 10/11/18 21:44 81 12 149/73 100 10/11/18 21:42 84 12 149/73 100 10/11/18 21:40 86 16 149/73 99 10/11/18 21:38 87 11 L 149/73 100 10/11/18 21:36 90 12 149/73 97 10/11/18 21:34 96 H 15 190/98 100 10/11/18 21:32 92 H 12 190/98 100 10/11/18 21:30 93 H 11 L 190/98 96 10/11/18 21:28 96 H 12 164/92 100 10/11/18 21:26 96 H 12 164/92 100 10/11/18 21:24 95 H 14 164/92 100 10/11/18 21:22 95 H 15 164/92 100 10/11/18 21:20 94 H 14 164/92 100 10/11/18 21:18 95 H 12 164/92 100 10/11/18 21:16 95 H 13 164/92 100 10/11/18 21:15 95 H 13 164/92 96 10/11/18 21:14 95 H 13 171/83 100 10/11/18 21:12 95 H 12 171/83 100 10/11/18 21:10 97 H 15 171/83 100 10/11/18 21:08 98 H 16 171/83 97 10/11/18 21:06 97 H 10 L 171/83 96 10/11/18 21:04 98 H 18 171/83 97 10/11/18 21:02 97 H 16 171/83 97 10/11/18 21:00 98 H 19 171/83 95 10/11/18 20:58 98 H 15 167/89 96 10/11/18 20:56 98 H 14 167/89 94 10/11/18 20:54 98 H 17 167/89 96 10/11/18 20:52 97 H 14 167/89 98 10/11/18 20:50 97 H 13 167/89 98 10/11/18 20:48 97 H 16 167/89 98 10/11/18 20:46 97 H 15 167/89 98 10/11/18 20:45 97 H 14 167/89 94 10/11/18 20:44 97 H 17 161/86 98 10/11/18 20:42 97 H 15 161/86 98 10/11/18 20:40 96 H 15 161/86 98 10/11/18 20:38 96 H 13 161/86 98 10/11/18 20:36 97 H 12 161/86 98 10/11/18 20:34 96 H 15 161/86 98 10/11/18 20:32 97 H 15 161/86 98 10/11/18 20:30 97 H 18 161/86 94 10/11/18 20:26 100 10/11/18 20:20 97 H 13 168/93 98 10/11/18 20:10 97 H 15 158/95 83 L 10/11/18 20:00 87 82 11 L 158/95 100 10/11/18 19:51 168/93 91 10/11/18 19:43 96.3 F L 10/11/18 19:40 99 H 13 163/88 100 10/11/18 19:30 99 H 17 163/88 99 10/11/18 19:20 98 H 12 162/84 95 10/11/18 19:10 98 H 12 159/82 10/11/18 19:00 100 H 16 159/82 10/11/18 18:50 96 H 13 149/77 10/11/18 18:40 98 H 12 177/90 74 L 10/11/18 18:30 100 H 15 177/90 10/11/18 18:20 97 H 11 L 165/84 10/11/18 18:10 97 H 11 L 169/88 10/11/18 18:00 97 H 12 169/88 83 L 10/11/18 17:50 97 H 16 171/85 10/11/18 17:40 97 H 12 170/87 12 L 10/11/18 17:30 98 H 12 170/87 92 10/11/18 17:20 99 H 21 157/77 10/11/18 17:10 98 H 21 173/87 10/11/18 17:00 100 H 16 173/87 91 10/11/18 16:50 100 H 15 178/91 100 10/11/18 16:40 100 H 15 177/83 100 10/11/18 16:36 98.8 F 101 H 20 177/83 10/11/18 16:30 101 H 15 179/88 100 10/11/18 16:20 99 H 15 163/89 96 10/11/18 16:15 98 H 163/89 10/11/18 16:10 98 H 12 182/93 100 10/11/18 16:00 97 H 18 182/93 10/11/18 15:50 96 H 11 L 168/89 100 10/11/18 15:45 96 H 159/85 10/11/18 15:40 97 H 11 L 168/89 100 10/11/18 15:30 97 H 12 168/89 100 10/11/18 15:21 100 10/11/18 15:20 97 H 11 L 150/75 100 10/11/18 15:17 76 10/11/18 15:15 97 H 181/85 10/11/18 15:10 98.2 F 96 H 10 L 150/75 100 10/11/18 15:00 94 H 22 150/75 100 10/11/18 14:50 94 H 11 L 101/58 100 10/11/18 14:45 94 H 161/84 10/11/18 14:40 92 H 11 L 166/80 100 10/11/18 14:30 83 11 L 101/65 100 10/11/18 14:20 66 11 L 101/65 100 10/11/18 14:15 65 101/65 10/11/18 14:10 68 16 101/58 100 10/11/18 14:00 63 11 L 101/58 100 10/11/18 13:50 64 10 L 105/71 100 10/11/18 13:45 65 105/71 10/11/18 13:40 64 18 95/63 100 10/11/18 13:30 62 11 L 95/63 100 10/11/18 13:20 59 L 17 104/68 100 10/11/18 13:15 98.8 F 60 15 92/58 100 10/11/18 13:10 61 12 108/65 100 10/11/18 13:00 64 18 104/68 100 10/11/18 12:50 64 16 103/63 100 - Physical Examination General: No Apparent Distress HEENT: Positive: PERRL, Normocephaly, Mucus Membranes Moist Neck: Positive: neck supple, trachea midline, JVD/HJR (Jugular venous distens ionnoted.) Cardiac: Positive: Reg Rate and Rhythm Lungs: Positive: Decreased Breath Sounds Neuro: Positive: Grossly Intact Abdomen: Positive: Unremarkable. Negative: Tender Skin: Negative: Rash Musculoskeletal: No Pain Extremities: Present: +2 Edema (BLE pitting, weeping ) - Labs and Meds Cardiac Enzymes 10/11/18 Range/Units 20:45 AST 31 (5-40) units/L CBC 10/12/18 Range/Units 10:02 Hgb 7.6 L (11.8-15.2) gm/dl Hct 24.1 L (35.5-45.6) % Comprehensive Metabolic Panel 10/11/18 10/11/18 10/12/18 Range/Units 13:15 20:45 04:25 Sodium 139 142 (137-145) mmol/L Potassium 6.4 H* 4.3 D 4.5 (3.6-5.0) mmol/L Chloride 102.6 104.0 (98-107) mmol/L Carbon Dioxide 27 27 (22-30) mmol/L BUN 37 H 38 H (9-20) mg/dL Creatinine 2.4 H 2.3 H (0.8-1.5) mg/dL Glucose 96 91 (75-100) mg/dL Calcium 7.5 L 7.6 L (8.4-10.2) mg/dL AST 31 (5-40) units/L ALT 56 (7-56) units/L Alkaline Phosphatase 261 H (35-129) units/L Total Protein 6.2 L (6.3-8.2) g/dL Albumin 3.0 L (3.9-5) g/dL - Imaging and Cardiology EKG: report reviewed, image reviewed Echo: pending - Telemetry EKG Rhythm: Sinus Rhythm - EKG Sinus rhythms and dysrhythmias: sinus bradycardia - Allied health notes Allied health notes reviewed: nursing
[2018-10-12] MEDS: PROAMATINE PO SCH ×2 (13:39→21:32)
[2018-10-12] MEDS: HumuLIN R SUB-Q SCH ×3 (13:39→21:30)
[2018-10-12] MEDS ORDERED: NACL 0.9% 100 ML IV PRN (14:09)
--- NOTE | 2018-10-12 14:14 | Progress Note ---
Assessment and Plan 1. Acute kidney injury: MAXIMO likely Vasomotor / hemodynamic mediated in the setting of hypotension. Patient was started on hemodialysis yesterday due to continued decline in the Renal function and hyperkalemia. Tolerated HD well. 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 2. FEN: Volume overload, Isoated UF today. 3. CHF exacerbation: On Dobutamine drip. 4. Hypotension: BP is better. 5. Anemia: Monitor. Subjective Date of service: 10/12/18 Principal diagnosis: Severe Sepsis with Shock; Acute encephalopathy; MAXIMO; Diabetes II; CMOP Interval history: Patient was seen and examined at the bedside. Objective - Vital Signs Vital signs: Vital Signs - 12hr 10/12/18 10/12/18 10/12/18 02:12 02:14 02:15 Temperature Pulse Rate 79 79 79 Pulse Rate [ From Monitor] Respiratory 9 L 9 L 10 L Rate Blood Pressure 130/68 130/68 127/65 O2 Sat by Pulse 94 94 91 Oximetry 10/12/18 10/12/18 10/12/18 02:16 02:18 02:20 Temperature Pulse Rate 79 79 79 Pulse Rate [ From Monitor] Respiratory 10 L 10 L 10 L Rate Blood Pressure 127/65 127/65 127/65 O2 Sat by Pulse 93 94 93 Oximetry 10/12/18 10/12/18 10/12/18 02:22 02:24 02:26 Temperature Pulse Rate 79 79 79 Pulse Rate [ From Monitor] Respiratory 9 L 11 L 9 L Rate Blood Pressure 127/65 127/65 127/65 O2 Sat by Pulse 94 95 94 Oximetry 10/12/18 10/12/18 10/12/18 02:28 02:50 02:52 Temperature Pulse Rate 79 83 84 Pulse Rate [ From Monitor] Respiratory 9 L 11 L 13 Rate Blood Pressure 127/65 146/71 146/71 O2 Sat by Pulse 94 95 94 Oximetry 10/12/18 10/12/18 10/12/18 02:54 02:56 02:58 Temperature Pulse Rate 85 85 85 Pulse Rate [ From Monitor] Respiratory 13 23 14 Rate Blood Pressure 146/71 146/71 146/71 O2 Sat by Pulse 95 95 90 Oximetry 10/12/18 10/12/18 10/12/18 03:00 03:01 03:02 Temperature Pulse Rate 87 87 87 Pulse Rate [ From Monitor] Respiratory 18 25 H 16 Rate Blood Pressure 146/71 146/71 146/71 O2 Sat by Pulse 95 98 93 Oximetry 10/12/18 10/12/18 10/12/18 03:03 03:04 03:06 Temperature Pulse Rate 86 86 84 Pulse Rate [ From Monitor] Respiratory 19 13 17 Rate Blood Pressure 132/85 132/85 132/85 O2 Sat by Pulse 90 96 95 Oximetry 10/12/18 10/12/18 10/12/18 03:08 03:10 03:12 Temperature Pulse Rate 83 82 82 Pulse Rate [ From Monitor] Respiratory 19 13 13 Rate Blood Pressure 132/85 132/85 132/85 O2 Sat by Pulse 96 96 96 Oximetry 10/12/18 10/12/18 10/12/18 03:14 03:15 03:16 Temperature Pulse Rate 82 82 82 Pulse Rate [ From Monitor] Respiratory 11 L 11 L 11 L Rate Blood Pressure 132/85 146/77 146/77 O2 Sat by Pulse 96 90 94 Oximetry 10/12/18 10/12/18 10/12/18 03:18 03:20 03:22 Temperature Pulse Rate 84 82 89 Pulse Rate [ From Monitor] Respiratory 10 L 18 18 Rate Blood Pressure 146/77 146/77 146/77 O2 Sat by Pulse 97 97 99 Oximetry 10/12/18 10/12/18 10/12/18 03:24 03:26 03:28 Temperature Pulse Rate 86 86 85 Pulse Rate [ From Monitor] Respiratory 14 15 23 Rate Blood Pressure 146/77 146/77 146/77 O2 Sat by Pulse 98 98 98 Oximetry 10/12/18 10/12/18 10/12/18 03:30 03:32 03:34 Temperature Pulse Rate 83 83 83 Pulse Rate [ From Monitor] Respiratory 12 13 13 Rate Blood Pressure 154/86 154/86 154/86 O2 Sat by Pulse 93 98 98 Oximetry 10/12/18 10/12/18 10/12/18 03:36 03:37 03:38 Temperature Pulse Rate 82 82 79 Pulse Rate [ From Monitor] Respiratory 12 15 21 Rate Blood Pressure 154/86 154/86 132/85 O2 Sat by Pulse 98 99 100 Oximetry 10/12/18 10/12/18 10/12/18 03:40 03:42 03:44 Temperature Pulse Rate 85 85 83 Pulse Rate [ From Monitor] Respiratory 11 L 11 L 17 Rate Blood Pressure 132/85 132/85 132/85 O2 Sat by Pulse 99 99 98 Oximetry 10/12/18 10/12/18 10/12/18 03:46 03:48 03:50 Temperature Pulse Rate 84 83 82 Pulse Rate [ From Monitor] Respiratory 10 L 11 L 13 Rate Blood Pressure 160/78 160/78 160/78 O2 Sat by Pulse 94 99 99 Oximetry 10/12/18 10/12/18 10/12/18 03:52 03:54 03:56 Temperature Pulse Rate 82 82 85 Pulse Rate [ From Monitor] Respiratory 11 L 11 L 13 Rate Blood Pressure 160/78 160/78 160/78 O2 Sat by Pulse 99 98 97 Oximetry 10/12/18 10/12/18 10/12/18 03:58 04:00 04:02 Temperature 94 F L Pulse Rate 84 85 90 Pulse Rate [ 83 From Monitor] Respiratory 19 20 12 Rate Blood Pressure 160/78 160/78 160/78 O2 Sat by Pulse 97 98 98 Oximetry 10/12/18 10/12/18 10/12/18 04:03 04:04 04:06 Temperature Pulse Rate 84 83 83 Pulse Rate [ From Monitor] Respiratory 13 11 L 11 L Rate Blood Pressure 146/74 146/74 146/74 O2 Sat by Pulse 93 99 100 Oximetry 10/12/18 10/12/18 10/12/18 04:08 04:10 04:12 Temperature Pulse Rate 82 83 82 Pulse Rate [ From Monitor] Respiratory 14 20 12 Rate Blood Pressure 146/74 154/86 154/86 O2 Sat by Pulse 100 98 97 Oximetry 10/12/18 10/12/18 10/12/18 04:14 04:15 04:16 Temperature Pulse Rate 83 82 82 Pulse Rate [ From Monitor] Respiratory 18 13 11 L Rate Blood Pressure 154/86 155/79 155/79 O2 Sat by Pulse 98 92 97 Oximetry 10/12/18 10/12/18 10/12/18 04:18 04:20 04:22 Temperature Pulse Rate 83 81 82 Pulse Rate [ From Monitor] Respiratory 14 13 11 L Rate Blood Pressure 155/79 155/79 155/79 O2 Sat by Pulse 97 99 100 Oximetry 10/12/18 10/12/18 10/12/18 04:24 04:26 04:28 Temperature Pulse Rate 82 82 90 Pulse Rate [ From Monitor] Respiratory 12 14 18 Rate Blood Pressure 155/79 155/79 155/79 O2 Sat by Pulse 100 99 98 Oximetry 10/12/18 10/12/18 10/12/18 04:30 04:32 04:34 Temperature Pulse Rate 86 83 80 Pulse Rate [ From Monitor] Respiratory 11 L 10 L 10 L Rate Blood Pressure 146/86 146/86 146/86 O2 Sat by Pulse 94 98 98 Oximetry 10/12/18 10/12/18 10/12/18 04:36 04:38 04:40 Temperature Pulse Rate 78 77 77 Pulse Rate [ From Monitor] Respiratory 11 L 11 L 10 L Rate Blood Pressure 146/86 146/86 146/86 O2 Sat by Pulse 98 100 99 Oximetry 10/12/18 10/12/18 10/12/18 04:42 04:44 04:45 Temperature Pulse Rate 77 78 78 Pulse Rate [ From Monitor] Respiratory 10 L 10 L 10 L Rate Blood Pressure 146/86 146/86 149/76 O2 Sat by Pulse 99 99 94 Oximetry 10/12/18 10/12/18 10/12/18 04:46 04:48 04:50 Temperature Pulse Rate 78 79 78 Pulse Rate [ From Monitor] Respiratory 11 L 12 11 L Rate Blood Pressure 149/76 149/76 149/76 O2 Sat by Pulse 99 99 98 Oximetry 10/12/18 10/12/18 10/12/18 04:52 04:54 04:56 Temperature Pulse Rate 78 78 78 Pulse Rate [ From Monitor] Respiratory 15 10 L 19 Rate Blood Pressure 149/76 149/76 149/76 O2 Sat by Pulse 98 98 97 Oximetry 10/12/18 10/12/18 10/12/18 04:58 05:00 05:02 Temperature Pulse Rate 80 80 80 Pulse Rate [ From Monitor] Respiratory 10 L 10 L 10 L Rate Blood Pressure 149/76 151/85 151/85 O2 Sat by Pulse 99 94 99 Oximetry 10/12/18 10/12/18 10/12/18 05:04 05:06 05:08 Temperature Pulse Rate 80 80 80 Pulse Rate [ From Monitor] Respiratory 9 L 9 L 11 L Rate Blood Pressure 151/85 151/85 151/85 O2 Sat by Pulse 99 99 99 Oximetry 10/12/18 10/12/18 10/12/18 05:10 05:12 05:14 Temperature Pulse Rate 80 79 80 Pulse Rate [ From Monitor] Respiratory 15 10 L 9 L Rate Blood Pressure 149/76 149/76 149/76 O2 Sat by Pulse 99 98 98 Oximetry 10/12/18 10/12/18 10/12/18 05:15 05:16 05:18 Temperature Pulse Rate 79 80 79 Pulse Rate [ From Monitor] Respiratory 11 L 12 20 Rate Blood Pressure 153/78 153/78 153/78 O2 Sat by Pulse 93 98 98 Oximetry 10/12/18 10/12/18 10/12/18 05:20 05:22 05:24 Temperature Pulse Rate 79 79 79 Pulse Rate [ From Monitor] Respiratory 19 19 20 Rate Blood Pressure 153/78 153/78 153/78 O2 Sat by Pulse 98 98 98 Oximetry 10/12/18 10/12/18 10/12/18 05:26 05:28 05:30 Temperature Pulse Rate 79 79 79 Pulse Rate [ From Monitor] Respiratory 20 21 11 L Rate Blood Pressure 153/78 153/78 150/80 O2 Sat by Pulse 98 98 94 Oximetry 10/12/18 10/12/18 10/12/18 05:32 05:34 05:36 Temperature Pulse Rate 79 79 79 Pulse Rate [ From Monitor] Respiratory 13 18 13 Rate Blood Pressure 150/80 150/80 150/80 O2 Sat by Pulse 98 98 98 Oximetry 10/12/18 10/12/18 10/12/18 05:38 05:40 05:42 Temperature Pulse Rate 79 79 79 Pulse Rate [ From Monitor] Respiratory 15 10 L 11 L Rate Blood Pressure 150/80 150/80 153/78 O2 Sat by Pulse 98 97 98 Oximetry 10/12/18 10/12/18 10/12/18 05:44 05:45 05:46 Temperature Pulse Rate 80 80 79 Pulse Rate [ From Monitor] Respiratory 10 L 12 12 Rate Blood Pressure 153/78 161/79 161/79 O2 Sat by Pulse 98 93 98 Oximetry 10/12/18 10/12/18 10/12/18 05:48 05:50 05:52 Temperature Pulse Rate 80 80 79 Pulse Rate [ From Monitor] Respiratory 15 17 15 Rate Blood Pressure 161/79 161/79 161/79 O2 Sat by Pulse 98 98 98 Oximetry 10/12/18 10/12/18 10/12/18 05:54 05:56 05:58 Temperature Pulse Rate 79 79 79 Pulse Rate [ From Monitor] Respiratory 15 19 20 Rate Blood Pressure 161/79 161/79 161/79 O2 Sat by Pulse 98 98 98 Oximetry 10/12/18 10/12/18 10/12/18 06:00 06:02 06:04 Temperature Pulse Rate 79 79 79 Pulse Rate [ From Monitor] Respiratory 17 21 17 Rate Blood Pressure 135/73 135/73 135/73 O2 Sat by Pulse 95 98 98 Oximetry 10/12/18 10/12/18 10/12/18 06:06 06:08 06:10 Temperature Pulse Rate 80 80 80 Pulse Rate [ From Monitor] Respiratory 13 13 12 Rate Blood Pressure 135/73 135/73 135/73 O2 Sat by Pulse 97 98 97 Oximetry 10/12/18 10/12/18 10/12/18 06:12 06:14 06:15 Temperature Pulse Rate 79 79 79 Pulse Rate [ From Monitor] Respiratory 10 L 20 15 Rate Blood Pressure 161/79 161/79 142/75 O2 Sat by Pulse 98 98 93 Oximetry 10/12/18 10/12/18 10/12/18 06:16 06:18 06:20 Temperature Pulse Rate 79 79 79 Pulse Rate [ From Monitor] Respiratory 17 11 L 18 Rate Blood Pressure 142/75 142/75 142/75 O2 Sat by Pulse 99 98 98 Oximetry 10/12/18 10/12/18 10/12/18 06:22 06:23 06:24 Temperature Pulse Rate 81 80 84 Pulse Rate [ From Monitor] Respiratory 11 L 14 13 Rate Blood Pressure 142/75 142/75 142/75 O2 Sat by Pulse 99 98 98 Oximetry 10/12/18 10/12/18 10/12/18 06:26 06:28 06:30 Temperature Pulse Rate 84 85 85 Pulse Rate [ From Monitor] Respiratory 13 14 14 Rate Blood Pressure 142/75 142/75 142/75 O2 Sat by Pulse 98 96 95 Oximetry 10/12/18 10/12/18 10/12/18 06:31 06:32 06:34 Temperature Pulse Rate 85 85 85 Pulse Rate [ From Monitor] Respiratory 15 16 18 Rate Blood Pressure 112/72 112/72 112/72 O2 Sat by Pulse 93 96 97 Oximetry 10/12/18 10/12/18 10/12/18 06:36 06:38 06:39 Temperature Pulse Rate 86 86 85 Pulse Rate [ From Monitor] Respiratory 12 12 12 Rate Blood Pressure 112/72 112/72 112/72 O2 Sat by Pulse 96 95 Oximetry 10/12/18 10/12/18 10/12/18 06:40 06:45 06:48 Temperature Pulse Rate 85 84 Pulse Rate [ From Monitor] Respiratory 14 Rate Blood Pressure 142/75 164/89 164/89 O2 Sat by Pulse Oximetry 10/12/18 10/12/18 10/12/18 06:50 06:52 06:54 Temperature Pulse Rate 84 83 Pulse Rate [ From Monitor] Respiratory 14 17 Rate Blood Pressure 168/82 168/82 168/82 O2 Sat by Pulse 91 97 97 Oximetry 10/12/18 10/12/18 10/12/18 06:56 06:58 07:00 Temperature Pulse Rate 82 82 82 Pulse Rate [ From Monitor] Respiratory 19 19 15 Rate Blood Pressure 168/82 168/82 168/82 O2 Sat by Pulse 97 97 98 Oximetry 10/12/18 10/12/18 10/12/18 07:02 08:00 09:47 Temperature 97.8 F Pulse Rate 82 Pulse Rate [ 83 From Monitor] Respiratory 14 14 Rate Blood Pressure 171/89 O2 Sat by Pulse 97 100 98 Oximetry 10/12/18 10/12/18 10/12/18 10:20 10:22 10:24 Temperature Pulse Rate 78 78 79 Pulse Rate [ From Monitor] Respiratory 10 L 11 L 10 L Rate Blood Pressure 149/81 149/81 149/81 O2 Sat by Pulse 94 92 95 Oximetry 10/12/18 10/12/18 10/12/18 10:26 10:28 10:29 Temperature Pulse Rate 78 79 78 Pulse Rate [ From Monitor] Respiratory 9 L 11 L 10 L Rate Blood Pressure 149/81 149/81 149/81 O2 Sat by Pulse 97 96 96 Oximetry 10/12/18 10/12/18 10/12/18 10:30 10:31 10:32 Temperature Pulse Rate 78 78 78 Pulse Rate [ From Monitor] Respiratory 9 L 11 L 10 L Rate Blood Pressure 140/77 157/83 157/83 O2 Sat by Pulse 97 93 95 Oximetry 10/12/18 10/12/18 10/12/18 10:34 10:36 10:38 Temperature Pulse Rate 78 78 78 Pulse Rate [ From Monitor] Respiratory 10 L 10 L 10 L Rate Blood Pressure 157/83 157/83 157/83 O2 Sat by Pulse 96 96 96 Oximetry 10/12/18 10/12/1810/12/19 10:39 10:40 10:42 Temperature Pulse Rate 78 78 78 Pulse Rate [ From Monitor] Respiratory 11 L 10 L 10 L Rate Blood Pressure O2 Sat by Pulse 97 97 96 Oximetry 10/12/18 10/12/18 10/12/18 10:44 10:46 10:47 Temperature Pulse Rate 77 77 81 Pulse Rate [ From Monitor] Respiratory 10 L 10 L 13 Rate Blood Pressure 149/96 O2 Sat by Pulse 96 96 92 Oximetry 10/12/18 10/12/18 10/12/18 10:48 10:50 10:52 Temperature Pulse Rate 80 80 81 Pulse Rate [ From Monitor] Respiratory 14 12 11 L Rate Blood Pressure 149/96 149/96 149/96 O2 Sat by Pulse 97 98 91 Oximetry 10/12/18 10/12/18 10/12/18 10:54 10:56 10:58 Temperature Pulse Rate 80 80 81 Pulse Rate [ From Monitor] Respiratory 12 18 14 Rate Blood Pressure 149/96 149/96 157/83 O2 Sat by Pulse 96 96 Oximetry 10/12/18 10/12/18 10/12/18 10:59 11:00 11:01 Temperature Pulse Rate 81 81 82 Pulse Rate [ From Monitor] Respiratory 13 13 12 Rate Blood Pressure 149/96 149/96 127/103 O2 Sat by Pulse Oximetry 10/12/18 10/12/18 10/12/18 11:02 11:04 11:05 Temperature Pulse Rate 81 81 81 Pulse Rate [ From Monitor] Respiratory 13 9 L 9 L Rate Blood Pressure 127/103 127/103 127/103 O2 Sat by Pulse Oximetry 10/12/18 10/12/18 10/12/18 11:06 11:08 11:10 Temperature Pulse Rate 81 80 79 Pulse Rate [ From Monitor] Respiratory 11 L 13 16 Rate Blood Pressure 127/103 127/103 127/103 O2 Sat by Pulse Oximetry 10/12/18 10/12/18 10/12/18 11:12 11:14 11:16 Temperature Pulse Rate 90 82 94 H Pulse Rate [ From Monitor] Respiratory 14 15 10 L Rate Blood Pressure 127/103 127/103 127/103 O2 Sat by Pulse Oximetry 10/12/18 10/12/18 10/12/18 11:18 11:20 11:22 Temperature Pulse Rate 80 125 H Pulse Rate [ From Monitor] Respiratory 13 18 26 H Rate Blood Pressure 127/103 127/103 127/103 O2 Sat by Pulse Oximetry 10/12/18 10/12/18 10/12/18 11:23 11:24 11:26 Temperature Pulse Rate 82 107 H Pulse Rate [ From Monitor] Respiratory 16 15 26 H Rate Blood Pressure 161/76 161/76 161/76 O2 Sat by Pulse Oximetry 10/12/18 10/12/18 10/12/18 11:27 11:31 11:32 Temperature Pulse Rate 133 H Pulse Rate [ From Monitor] Respiratory 25 H 15 Rate Blood Pressure 161/76 168/59 168/59 O2 Sat by Pulse Oximetry 10/12/18 10/12/18 10/12/18 11:34 11:36 11:38 Temperature Pulse Rate 102 H 81 77 Pulse Rate [ From Monitor] Respiratory 25 H 32 H 23 Rate Blood Pressure 168/59 168/59 168/59 O2 Sat by Pulse 96 Oximetry 10/12/18 10/12/18 10/12/18 11:40 11:42 12:00 Temperature 97.6 F Pulse Rate 79 78 Pulse Rate [ 83 From Monitor] Respiratory 21 25 H 14 Rate Blood Pressure 168/59 168/59 O2 Sat by Pulse 95 93 100 Oximetry 10/12/18 10/12/18 10/12/18 12:01 12:02 12:04 Temperature Pulse Rate 80 79 79 Pulse Rate [ From Monitor] Respiratory 19 12 13 Rate Blood Pressure 176/145 176/145 176/145 O2 Sat by Pulse 93 90 93 Oximetry 10/12/18 10/12/18 10/12/18 12:05 12:06 12:08 Temperature Pulse Rate 78 81 80 Pulse Rate [ From Monitor] Respiratory 20 12 17 Rate Blood Pressure 176/145 176/145 176/145 O2 Sat by Pulse 95 94 93 Oximetry 10/12/18 10/12/18 10/12/18 12:10 12:12 12:14 Temperature Pulse Rate 81 81 81 Pulse Rate [ From Monitor] Respiratory 13 18 12 Rate Blood Pressure 176/145 176/145 176/145 O2 Sat by Pulse 90 94 93 Oximetry 10/12/18 10/12/18 10/12/18 12:16 12:18 12:20 Temperature Pulse Rate 80 79 79 Pulse Rate [ From Monitor] Respiratory 16 12 14 Rate Blood Pressure 195/89 195/89 195/89 O2 Sat by Pulse 89 95 95 Oximetry 10/12/18 10/12/18 10/12/18 12:22 12:24 12:26 Temperature Pulse Rate 78 79 80 Pulse Rate [ From Monitor] Respiratory 16 13 12 Rate Blood Pressure 195/89 195/89 195/89 O2 Sat by Pulse 93 95 94 Oximetry 10/12/18 10/12/18 10/12/18 12:28 12:30 12:31 Temperature Pulse Rate 80 79 79 Pulse Rate [ From Monitor] Respiratory 14 19 25 H Rate Blood Pressure 195/89 176/145 185/82 O2 Sat by Pulse 95 93 88 Oximetry 10/12/18 10/12/18 10/12/18 12:32 12:34 12:36 Temperature Pulse Rate 79 79 79 Pulse Rate [ From Monitor] Respiratory 12 11 L 9 L Rate Blood Pressure 185/82 185/82 185/82 O2 Sat by Pulse 94 91 92 Oximetry 10/12/18 10/12/18 10/12/18 12:38 12:40 12:42 Temperature Pulse Rate 77 77 77 Pulse Rate [ From Monitor] Respiratory 9 L 10 L 9 L Rate Blood Pressure 185/82 185/82 185/82 O2 Sat by Pulse 92 93 94 Oximetry 10/12/18 10/12/18 10/12/18 12:44 12:46 12:48 Temperature Pulse Rate 77 77 77 Pulse Rate [ From Monitor] Respiratory 9 L 11 L 13 Rate Blood Pressure 185/82 185/101 185/101 O2 Sat by Pulse 94 88 94 Oximetry 10/12/18 10/12/18 10/12/18 12:50 12:52 12:54 Temperature Pulse Rate 90 80 80 Pulse Rate [ From Monitor] Respiratory 22 27 H 13 Rate Blood Pressure 185/101 185/101 185/101 O2 Sat by Pulse 96 97 93 Oximetry 10/12/18 10/12/18 10/12/18 12:56 12:58 13:00 Temperature Pulse Rate 79 79 Pulse Rate [ From Monitor] Respiratory 15 26 H 27 H Rate Blood Pressure 185/101 185/101 185/101 O2 Sat by Pulse 93 93 96 Oximetry 10/12/18 10/12/18 10/12/18 13:02 13:04 13:06 Temperature Pulse Rate 79 78 77 Pulse Rate [ From Monitor] Respiratory 16 11 L 11 L Rate Blood Pressure 172/91 172/91 172/91 O2 Sat by Pulse 88 95 95 Oximetry 10/12/18 10/12/18 10/12/18 13:08 13:10 13:12 Temperature Pulse Rate 77 77 79 Pulse Rate [ From Monitor] Respiratory 10 L 12 13 Rate Blood Pressure 172/91 172/91 172/91 O2 Sat by Pulse 96 97 97 Oximetry 10/12/18 10/12/18 10/12/18 13:14 13:16 13:18 Temperature Pulse Rate 79 79 80 Pulse Rate [ From Monitor] Respiratory 15 12 9 L Rate Blood Pressure 172/91 185/134 185/134 O2 Sat by Pulse 99 86 99 Oximetry 10/12/18 10/12/18 10/12/18 13:20 13:22 13:24 Temperature Pulse Rate 79 80 78 Pulse Rate [ From Monitor] Respiratory 16 18 10 L Rate Blood Pressure 185/134 185/134 185/134 O2 Sat by Pulse 97 99 94 Oximetry 10/12/18 10/12/18 10/12/18 13:26 13:28 13:30 Temperature Pulse Rate 77 77 77 Pulse Rate [ From Monitor] Respiratory 10 L 10 L 10 L Rate Blood Pressure 185/134 185/134 185/134 O2 Sat by Pulse 95 97 96 Oximetry 10/12/18 10/12/18 10/12/18 13:31 13:32 13:34 Temperature Pulse Rate 76 76 76 Pulse Rate [ From Monitor] Respiratory 10 L 10 L 10 L Rate Blood Pressure 176/85 172/91 172/91 O2 Sat by Pulse 91 96 95 Oximetry - General Appearance General appearance: well-developed, well-nourished, appears stated age, obese, other (not in distress, right groin hemodialysis catheter) EENT: ATNC Neck: supple Respiratory: Present: Clear to Ascultation Cardiology: regular, S1S2, no murmurs Gastrointestinal: normoactive bowel sounds, no tenderness, no distended Integumentary: no rash, warm and dry Neurologic: other (able to move extremities, tremors noted, dysarthric) Musculoskeletal: other (2+ edema of both LEs and 1+ Us edema noted) - Lab 10/12/18 10:02 10/12/18 04:25 Most recent lab results Calcium 7.6 mg/dL (8.4-10.2) L 10/12/18 04:25 Magnesium 2.00 mg/dL (1.7-2.3) 10/11/18 20:45 Urine Creatinine 118.6 mg/dL (0.1-20.0) H 10/10/18 22:30 Urine Sodium 35 mmol/L 10/10/18 22:30 Urine Total Protein 152 mg/dL (5-11.8) H 10/10/18 22:30 Medications & Allergies - Medications Allergies/Adverse Reactions: Allergies No Known Allergies Allergy (Unverified 10/09/18 10:44) Home Medications: Home Medications Medication Instructions Recorded Confirmed Last Taken Type Carvedilol [Coreg] 3.125 mg PO BID 10/09/18 10/09/[address] [DepaKOTE DR] 500 mg PO BID 10/09/18 10/09/18 Unknown History Ferrous Sulfate [Feosol] 325 mg PO QDAY 10/09/18 10/09/18 Unknown History Furosemide [Lasix] 80 mg PO DAILY 10/09/18 10/09/18 Unknown History Gabapentin [Neurontin] 300 mg PO Q8HR 10/09/18 10/09/18 Unknown History ISOSORBIDE MONOnitrate [Imdur ER] 30 mg PO DAILY 10/09/18 10/09/18 Unknown History Insulin Glargine,Hum.rec.anlog 40 units SQ QHS 10/09/18 10/09/18 Unknown History [Lantus] Magnesium Oxide [Mag-Ox] 400 mg PO DAILY 10/09/18 10/09/18 Unknown History Simvastatin [Zocor TAB] 20 mg PO QHS 10/09/18 10/09/18 Unknown History Sulfamethoxazole/Trimethoprim 1 each PO BID 10/09/18 10/09/18 Unknown History [Bactrim DS TAB] glipiZIDE [Glipizide] 10 mg PO DAILY 10/09/18 10/09/18 Unknown History hydrALAZINE [Apresoline TAB] 100 mg PO BID 10/09/18 10/09/18 Unknown History risperiDONE [RisperDAL] 1 mg PO QHS 10/09/18 10/09/18 Unknown History Active Medications: Generic Name Dose Route Start Last Admin Trade Name Freq PRN Reason Stop Dose Admin Albumin Human 25 gm 10/11/18 09:35 Alburx 25% (Albumin) IV JUDE PRN Hypotension Aspirin 325 mg 10/10/18 10:00 10/12/18 10:50 Aspirin PO 325 mg QDAY JAMIL Administration Dextrose 50 ml 10/10/18 11:03 10/10/18 11:31 D50w (25gm) Syringe IV 50 ml PRN PRN Administration Hypoglycemia Divalproex Sodium 500 mg 10/09/18 22:00 10/12/18 10:[address] PO 500 mg BID JAMIL Administration Famotidine 20 mg 10/10/18 12:00 10/12/18 10:50 Pepcid PO 20 mg DAILY JAMIL Administration Ferrous Sulfate 325 mg 10/10/18 10:00 10/12/18 10:50 Feosol PO 325 mg QDAY JAMIL Administration Gabapentin 300 mg 10/09/18 14:00 10/12/18 13:40 Neurontin PO Not Given Q8HR JAMIL Heparin Sodium (Porcine) 5,000 unit 10/11/18 15:00 10/12/18 06:17 Heparin SUB-Q 5,000 unit Q8HR JAMIL Administration Norepinephrine 4 mg in 250 mls @ 7.5 mls/hr 10/09/18 13:00 10/10/18 12:02 Levophed Drip 4 Mg/Ns 250 Ml IV 0 mcg/min TITR JAMIL 0 mls/hr Titration Protocol 2 MCG/MIN Dobutamine HCl/Dextrose 500 mg in 250 mls @ 8.925 mls/hr 10/11/18 10:00 10/11/18 22:30 Dobutrex Drip 500mg/D5w 250ml IV 1.5 mcg/kg/min TITR JAMIL 5.355 mls/hr Infusion 2.5 MCG/KG/MIN Sodium Chloride 100 mls @ 999 mls/hr 10/12/18 14:09 Nacl 0.9% IV JUDE PRN Hypotension Insulin Glargine 40 units 10/09/18 22:00 10/11/18 22:52 Lantus SUB-Q 40 units QHS JAMIL Administration Insulin Human Regular 0 units 10/10/18 11:30 10/12/18 13:39 Humulin R SUB-Q Not Given ACHS [facility] Protocol Levofloxacin 500 mg 10/12/18 10:00 10/12/18 10:51 Levaquin PO 10/18/18 10:01 500 mg Q48HR JAMIL Administration Midodrine 10 mg 10/11/18 11:00 10/12/18 13:39 Proamatine PO Not Given TID JAMIL Pravastatin Sodium 40 mg 10/09/18 22:00 10/11/18 21:28 Pravachol PO 40 mg QHS JAMIL Administration Risperidone 1 mg 10/09/18 22:00 10/11/18 21:34 Risperdal PO 1 mg QHS JAMIL Administration Sodium Chloride 10 ml 10/09/18 13:00 10/12/18 10:52 Sodium Chloride Flush Syringe 10 Ml IV 10 ml BID JAMIL Administration Sodium Chloride 10 ml 10/09/18 13:00 Sodium Chloride Flush Syringe 10 Ml IV PRN PRN LINE FLUSH
--- NOTE | 2018-10-12 17:58 | Progress Note ---
Assessment and Plan Severe Sepsis syndrome. Shock (cardiogenic versus septic) Acute encephalopathy( improved). Possible seizures. History of diabetes CMOP Leukopenia. Anemia that is normocytic. Acute hypercapnic respiratory acidosis. Hyperkalemia. Acute kidney injury. Non-ST elevation myocardial infarction. Hypoglycemia. Possible peripheral vascular disease. Obesity. - lower extremity dopplers negative - suppelemntal oxygen to keep sats > 90% - BIPAP qhs re: hypercapnia and possible - PT/OT as tolerated - aspiration precautions - prn bronchodilators with pulmonary hygiene per RT -supportive HD as indicated - continue empiric Antibiotics to complete course (Levaquin) - continue Mobility protocol for pressure ulcer prevention - continue other care per attending / other consultants -dobutamine management per cardiology service FULL CODE STATUS CONDITION: FAIR Subjective Date of service: 10/12/18 Principal diagnosis: Severe Sepsis with Shock; Acute encephalopathy; MAXIMO; Diabetes II; CMOP Interval history: Patient is seen today for: Severe Sepsis syndrome; Shock (cardiogenic versus septic); Acute encephalopathy; Possible seizures; History of diabetes; CMOP Seen and examined at bedside; 24hour events reviewed; nursing and respiratory care staff consulted; no adverse overnight events reported to me; resting peacefully in bed; s/p dialysis; on dobutamine re: HFrEF; denies acute chest pains or palpitations; no obvious seizure activity on EEG off vasopressor support. Awake and alert Objective Vital Signs - 12hr 10/12/18 10/12/18 10/12/18 05:58 06:00 06:02 Temperature Pulse Rate 79 79 79 Pulse Rate [ From Monitor] Respiratory 20 17 21 Rate Blood Pressure 161/79 135/73 135/73 O2 Sat by Pulse 98 95 98 Oximetry 10/12/18 10/12/18 10/12/18 06:04 06:06 06:08 Temperature Pulse Rate 79 80 80 Pulse Rate [ From Monitor] Respiratory 17 13 13 Rate Blood Pressure 135/73 135/73 135/73 O2 Sat by Pulse 98 97 98 Oximetry 10/12/18 10/12/18 10/12/18 06:10 06:12 06:14 Temperature Pulse Rate 80 79 79 Pulse Rate [ From Monitor] Respiratory 12 10 L 20 Rate Blood Pressure 135/73 161/79 161/79 O2 Sat by Pulse 97 98 98 Oximetry 10/12/18 10/12/18 10/12/18 06:15 06:16 06:18 Temperature Pulse Rate 79 79 79 Pulse Rate [ From Monitor] Respiratory 15 17 11 L Rate Blood Pressure 142/75 142/75 142/75 O2 Sat by Pulse 93 99 98 Oximetry 10/12/18 10/12/18 10/12/18 06:20 06:22 06:23 Temperature Pulse Rate 79 81 80 Pulse Rate [ From Monitor] Respiratory 18 11 L 14 Rate Blood Pressure 142/75 142/75 142/75 O2 Sat by Pulse 98 99 98 Oximetry 10/12/18 10/12/18 10/12/18 06:24 06:26 06:28 Temperature Pulse Rate 84 84 85 Pulse Rate [ From Monitor] Respiratory 13 13 14 Rate Blood Pressure 142/75 142/75 142/75 O2 Sat by Pulse 98 98 96 Oximetry 10/12/18 10/12/18 10/12/18 06:30 06:31 06:32 Temperature Pulse Rate 85 85 85 Pulse Rate [ From Monitor] Respiratory 14 15 16 Rate Blood Pressure 142/75 112/72 112/72 O2 Sat by Pulse 95 93 96 Oximetry 10/12/18 10/12/18 10/12/18 06:34 06:36 06:38 Temperature Pulse Rate 85 86 86 Pulse Rate [ From Monitor] Respiratory 18 12 12 Rate Blood Pressure 112/72 112/72 112/72 O2 Sat by Pulse 97 96 95 Oximetry 10/12/18 10/12/18 10/12/18 06:39 06:40 06:45 Temperature Pulse Rate 85 85 Pulse Rate [ From Monitor] Respiratory 12 14 Rate Blood Pressure 112/72 142/75 164/89 O2 Sat by Pulse Oximetry 10/12/18 10/12/18 10/12/18 06:48 06:50 06:52 Temperature Pulse Rate 84 84 Pulse Rate [ From Monitor] Respiratory 14 Rate Blood Pressure 164/89 168/82 168/82 O2 Sat by Pulse 91 97 Oximetry 10/12/18 10/12/18 10/12/18 06:54 06:56 06:58 Temperature Pulse Rate 83 82 82 Pulse Rate [ From Monitor] Respiratory 17 19 19 Rate Blood Pressure 168/82 168/82 168/82 O2 Sat by Pulse 97 97 97 Oximetry 10/12/18 10/12/18 10/12/18 07:00 07:02 08:00 Temperature 97.8 F Pulse Rate 82 82 Pulse Rate [ 83 From Monitor] Respiratory 15 14 14 Rate Blood Pressure 168/82 171/89 O2 Sat by Pulse 98 97 100 Oximetry 10/12/18 10/12/18 10/12/18 09:47 10:20 10:22 Temperature Pulse Rate 78 78 Pulse Rate [ From Monitor] Respiratory 10 L 11 L Rate Blood Pressure 149/81 149/81 O2 Sat by Pulse 98 94 92 Oximetry 10/12/18 10/12/18 10/12/18 10:24 10:26 10:28 Temperature Pulse Rate 79 78 79 Pulse Rate [ From Monitor] Respiratory 10 L 9 L 11 L Rate Blood Pressure 149/81 149/81 149/81 O2 Sat by Pulse 95 97 96 Oximetry 10/12/18 10/12/18 10/12/18 10:29 10:30 10:31 Temperature Pulse Rate 78 78 78 Pulse Rate [ From Monitor] Respiratory 10 L 9 L 11 L Rate Blood Pressure 149/81 140/77 157/83 O2 Sat by Pulse 96 97 93 Oximetry 10/12/18 10/12/18 10/12/18 10:32 10:34 10:36 Temperature Pulse Rate 78 78 78 Pulse Rate [ From Monitor] Respiratory 10 L 10 L 10 L Rate Blood Pressure 157/83 157/83 157/83 O2 Sat by Pulse 95 96 96 Oximetry 10/12/18 10/12/18 10/12/18 10:38 10:39 10:40 Temperature Pulse Rate 78 78 78 Pulse Rate [ From Monitor] Respiratory 10 L 11 L 10 L Rate Blood Pressure 157/83 O2 Sat by Pulse 96 97 97 Oximetry 10/12/18 10/12/18 10/12/18 10:42 10:44 10:46 Temperature Pulse Rate 78 77 77 Pulse Rate [ From Monitor] Respiratory 10 L 10 L 10 L Rate Blood Pressure O2 Sat by Pulse 96 96 96 Oximetry 10/12/18 10/12/18 10/12/18 10:47 10:48 10:50 Temperature Pulse Rate 81 80 80 Pulse Rate [ From Monitor] Respiratory 13 14 12 Rate Blood Pressure 149/96 149/96 149/96 O2 Sat by Pulse 92 97 98 Oximetry 10/12/18 10/12/18 10/12/18 10:52 10:54 10:56 Temperature Pulse Rate 81 80 80 Pulse Rate [ From Monitor] Respiratory 11 L 12 18 Rate Blood Pressure 149/96 149/96 149/96 O2 Sat by Pulse 91 96 96 Oximetry 10/12/18 10/12/18 10/12/18 10:58 10:59 11:00 Temperature Pulse Rate 81 81 81 Pulse Rate [ From Monitor] Respiratory 14 13 13 Rate Blood Pressure 157/83 149/96 149/96 O2 Sat by Pulse Oximetry 10/12/18 10/12/18 10/12/18 11:01 11:02 11:04 Temperature Pulse Rate 82 81 81 Pulse Rate [ From Monitor] Respiratory 12 13 9 L Rate Blood Pressure 127/103 127/103 127/103 O2 Sat by Pulse Oximetry 10/12/18 10/12/18 10/12/18 11:05 11:06 11:08 Temperature Pulse Rate 81 81 80 Pulse Rate [ From Monitor] Respiratory 9 L 11 L 13 Rate Blood Pressure 127/103 127/103 127/103 O2 Sat by Pulse Oximetry 10/12/18 10/12/18 10/12/18 11:10 11:12 11:14 Temperature Pulse Rate 79 90 82 Pulse Rate [ From Monitor] Respiratory 16 14 15 Rate Blood Pressure 127/103 127/103 127/103 O2 Sat by Pulse Oximetry 10/12/18 10/12/18 10/12/18 11:16 11:18 11:20 Temperature Pulse Rate 94 H 80 125 H Pulse Rate [ From Monitor] Respiratory 10 L 13 18 Rate Blood Pressure 127/103 127/103 127/103 O2 Sat by Pulse Oximetry 10/12/18 10/12/18 10/12/18 11:22 11:23 11:24 Temperature Pulse Rate 82 Pulse Rate [ From Monitor] Respiratory 26 H 16 15 Rate Blood Pressure 127/103 161/76 161/76 O2 Sat by Pulse Oximetry 10/12/18 10/12/18 10/12/18 11:26 11:27 11:31 Temperature Pulse Rate 107 H Pulse Rate [ From Monitor] Respiratory 26 H 25 H 15 Rate Blood Pressure 161/76 161/76 168/59 O2 Sat by Pulse Oximetry 10/12/18 10/12/18 10/12/18 11:32 11:34 11:36 Temperature Pulse Rate 133 H 102 H 81 Pulse Rate [ From Monitor] Respiratory 25 H 32 H Rate Blood Pressure 168/59 168/59 168/59 O2 Sat by Pulse Oximetry 10/12/18 10/12/18 10/12/18 11:38 11:40 11:42 Temperature Pulse Rate 77 79 78 Pulse Rate [ From Monitor] Respiratory 23 21 25 H Rate Blood Pressure 168/59 168/59 168/59 O2 Sat by Pulse 96 95 93 Oximetry 10/12/18 10/12/18 10/12/18 12:00 12:01 12:02 Temperature 97.6 F Pulse Rate 80 79 Pulse Rate [ 83 From Monitor] Respiratory 14 19 12 Rate Blood Pressure 176/145 176/145 O2 Sat by Pulse 100 93 90 Oximetry 10/12/18 10/12/18 10/12/18 12:04 12:05 12:06 Temperature Pulse Rate 79 78 81 Pulse Rate [ From Monitor] Respiratory 13 20 12 Rate Blood Pressure 176/145 176/145 176/145 O2 Sat by Pulse 93 95 94 Oximetry 10/12/18 10/12/18 10/12/18 12:08 12:10 12:12 Temperature Pulse Rate 80 81 81 Pulse Rate [ From Monitor] Respiratory 17 13 18 Rate Blood Pressure 176/145 176/145 176/145 O2 Sat by Pulse 93 90 94 Oximetry 10/12/18 10/12/18 10/12/18 12:14 12:16 12:18 Temperature Pulse Rate 81 80 79 Pulse Rate [ From Monitor] Respiratory 12 16 12 Rate Blood Pressure 176/145 195/89 195/89 O2 Sat by Pulse 93 89 95 Oximetry 10/12/18 10/12/18 10/12/18 12:20 12:22 12:24 Temperature Pulse Rate 79 78 79 Pulse Rate [ From Monitor] Respiratory 14 16 13 Rate Blood Pressure 195/89 195/89 195/89 O2 Sat by Pulse 95 93 95 Oximetry 10/12/18 10/12/18 10/12/18 12:26 12:28 12:30 Temperature Pulse Rate 80 80 79 Pulse Rate [ From Monitor] Respiratory 12 14 19 Rate Blood Pressure 195/89 195/89 176/145 O2 Sat by Pulse 94 95 93 Oximetry 10/12/18 10/12/18 10/12/18 12:31 12:32 12:34 Temperature Pulse Rate 79 79 79 Pulse Rate [ From Monitor] Respiratory 25 H 12 11 L Rate Blood Pressure 185/82 185/82 185/82 O2 Sat by Pulse 88 94 91 Oximetry 10/12/18 10/12/18 10/12/18 12:36 12:38 12:40 Temperature Pulse Rate 79 77 77 Pulse Rate [ From Monitor] Respiratory 9 L 9 L 10 L Rate Blood Pressure 185/82 185/82 185/82 O2 Sat by Pulse 92 92 93 Oximetry 10/12/18 10/12/18 10/12/18 12:42 12:44 12:46 Temperature Pulse Rate 77 77 77 Pulse Rate [ From Monitor] Respiratory 9 L 9 L 11 L Rate Blood Pressure 185/82 185/82 185/101 O2 Sat by Pulse 94 94 88 Oximetry 10/12/18 10/12/18 10/12/18 12:48 12:50 12:52 Temperature Pulse Rate 77 90 80 Pulse Rate [ From Monitor] Respiratory 13 22 27 H Rate Blood Pressure 185/101 185/101 185/101 O2 Sat by Pulse 94 96 97 Oximetry 10/12/18 10/12/18 10/12/18 12:54 12:56 12:58 Temperature Pulse Rate 80 79 79 Pulse Rate [ From Monitor] Respiratory 13 15 26 H Rate Blood Pressure 185/101 185/101 185/101 O2 Sat by Pulse 93 93 93 Oximetry 10/12/18 10/12/18 10/12/18 13:00 13:02 13:04 Temperature Pulse Rate 79 78 Pulse Rate [ From Monitor] Respiratory 27 H 16 11 L Rate Blood Pressure 185/101 172/91 172/91 O2 Sat by Pulse 96 88 95 Oximetry 10/12/18 10/12/18 10/12/18 13:06 13:08 13:10 Temperature Pulse Rate 77 77 77 Pulse Rate [ From Monitor] Respiratory 11 L 10 L 12 Rate Blood Pressure 172/91 172/91 172/91 O2 Sat by Pulse 95 96 97 Oximetry 10/12/18 10/12/18 10/12/18 13:12 13:14 13:16 Temperature Pulse Rate 79 79 79 Pulse Rate [ From Monitor] Respiratory 13 15 12 Rate Blood Pressure 172/91 172/91 185/134 O2 Sat by Pulse 97 99 86 Oximetry 10/12/18 10/12/18 10/12/18 13:18 13:20 13:22 Temperature Pulse Rate 80 79 80 Pulse Rate [ From Monitor] Respiratory 9 L 16 18 Rate Blood Pressure 185/134 185/134 185/134 O2 Sat by Pulse 99 97 99 Oximetry 10/12/18 10/12/18 10/12/18 13:24 13:26 13:28 Temperature Pulse Rate 78 77 77 Pulse Rate [ From Monitor] Respiratory 10 L 10 L 10 L Rate Blood Pressure 185/134 185/134 185/134 O2 Sat by Pulse 94 95 97 Oximetry 10/12/18 10/12/18 10/12/18 13:30 13:31 13:32 Temperature Pulse Rate 77 76 76 Pulse Rate [ From Monitor] Respiratory 10 L 10 L 10 L Rate Blood Pressure 185/134 176/85 172/91 O2 Sat by Pulse 96 91 96 Oximetry 10/12/18 10/12/18 10/12/18 13:34 13:45 14:00 Temperature Pulse Rate 76 75 76 Pulse Rate [ From Monitor] Respiratory 10 L 10 L 10 L Rate Blood Pressure 172/91 155/84 155/84 O2 Sat by Pulse 95 90 96 Oximetry 10/12/18 10/12/18 10/12/18 14:15 14:30 14:46 Temperature Pulse Rate 75 76 75 Pulse Rate [ From Monitor] Respiratory 10 L 10 L 11 L Rate Blood Pressure 168/87 173/88 171/73 O2 Sat by Pulse 89 91 96 Oximetry 10/12/18 10/12/18 10/12/18 15:00 15:16 15:30 Temperature Pulse Rate 77 78 79 Pulse Rate [ From Monitor] Respiratory 10 L 10 L 11 L Rate Blood Pressure 171/73 171/90 171/90 O2 Sat by Pulse 95 91 96 Oximetry 10/12/18 10/12/18 10/12/18 15:46 16:00 16:15 Temperature Pulse Rate 78 78 70 Pulse Rate [ From Monitor] Respiratory 13 11 L 10 L Rate Blood Pressure 128/56 128/56 150/91 O2 Sat by Pulse 83 L 91 87 Oximetry 10/12/18 10/12/18 10/12/18 16:30 16:45 17:00 Temperature Pulse Rate 73 72 73 Pulse Rate [ From Monitor] Respiratory 9 L 8 L 11 L Rate Blood Pressure 128/60 131/61 153/77 O2 Sat by Pulse 94 92 94 Oximetry 10/12/18 10/12/18 10/12/18 17:15 17:30 17:45 Temperature Pulse Rate 73 72 72 Pulse Rate [ From Monitor] Respiratory 9 L 16 Rate Blood Pressure 148/72 148/72 158/79 O2 Sat by Pulse 93 96 Oximetry 10/12/18 17:46 Temperature Pulse Rate 72 Pulse Rate [ From Monitor] Respiratory 11 L Rate Blood Pressure 158/79 O2 Sat by Pulse 88 Oximetry Constitutional: no acute distress, alert, other (middle aged AAM, normocephalic and atraumatic with mildly increased respiratory effort) Eyes: non-icteric ENT: oropharynx moist Neck: supple, no lymphadenopathy, no JVD Effort: mildly labored Ascultation: Bilateral: diminished breath sounds, rales (bases) Percussion: Bilateral: not dull Cardiovascular: regular rate and rhythm, other (S1,S2, no murmurs, gallops or rubs) Gastrointestinal: normoactive bowel sounds, soft, non-tender, non-distended Integumentary: rash (feet) Extremities: no cyanosis, pulses normal, no ischemia or petechiae, edema (2+) Neurologic: normal mental status, non-focal exam, pupils equal and round, motor strength normal and, other (sensory numbness to feet) Psychiatric: mood appropriate, affect normal CBC and BMP: 10/13/18 03:28 10/13/18 03:28 ABG, PT/INR, D-dimer: ABG POC ABG pH 7.286 (7.35-7.45) L 10/10/18 12:22 POC ABG pCO2 47.3 (35-45) H 10/10/18 12:22 POC ABG pO2 65 (80-105) L 10/10/18 12:22 POC ABG HCO3 22.5 10/10/18 12:22 POC ABG Total CO2 24 10/10/18 12:22 POC ABG O2 Sat 90 10/10/18 12:22 PT/INR, D-dimer PT 13.0 Sec. (12.2-14.9) 10/09/18 14:25 INR 0.94 (0.87-1.13) 10/09/18 14:25 D-Dimer 927.57 ng/mlDDU (0-234) H 10/10/18 13:36 Abnormal lab findings: Abnormal Labs 10/09/18 10/09/18 10/09/18 11:22 11:22 11:22 WBC 3.3 L RBC 3.03 L Hgb 8.4 L Hct 25.8 L MCH RDW 18.7 H Lyman % (Auto) 12.1 H Eos % (Auto) 4.6 H Lymph # 0.5 L APTT 42.8 H D-Dimer Heparin Anti-Xa Level POC ABG pH POC ABG pCO2 POC ABG pO2 Potassium 5.2 H Chloride 108.2 H BUN 49 H Creatinine 1.9 H Glucose 153 H POC Glucose Hemoglobin A1c Lactic Acid Calcium Alkaline Phosphatase Total Creatine Kinase 481 H CK-MB (CK-2) 20.5 H CK-MB (CK-2) Rel Index 4.2 H Troponin T 0.153 H* NT-Pro-B Natriuret Pep 2963 H Total Protein Albumin LDL Cholesterol Direct 49 L HDL Cholesterol 73 H Urine Creatinine Urine Total Protein 10/09/18 10/09/18 10/09/18 13:43 14:25 14:25 WBC RBC Hgb 8.2 L Hct 26.2 L MCH RDW Lyman % (Auto) Eos % (Auto) Lymph # APTT 42.4 H D-Dimer Heparin Anti-Xa Level POC ABG pH POC ABG pCO2 POC ABG pO2 Potassium Chloride BUN Creatinine Glucose POC Glucose 167 H Hemoglobin A1c Lactic Acid Calcium Alkaline Phosphatase Total Creatine Kinase CK-MB (CK-2) CK-MB (CK-2) Rel Index Troponin T NT-Pro-B Natriuret Pep Total Protein Albumin LDL Cholesterol Direct HDL Cholesterol Urine Creatinine Urine Total Protein 10/09/18 10/09/18 10/09/18 17:28 20:56 21:23 WBC RBC Hgb Hct MCH RDW Lyman % (Auto) Eos % (Auto) Lymph # APTT D-Dimer Heparin Anti-Xa Level 0.28 L POC ABG pH POC ABG pCO2 POC ABG pO2 Potassium Chloride BUN Creatinine Glucose POC Glucose Hemoglobin A1c Lactic Acid Calcium Alkaline Phosphatase Total Creatine Kinase CK-MB (CK-2) CK-MB (CK-2) Rel Index Troponin T 0.136 H* 0.139 H* NT-Pro-B Natriuret Pep Total Protein Albumin LDL Cholesterol Direct HDL Cholesterol Urine Creatinine Urine Total Protein 10/10/18 10/10/18 10/10/18 00:10 05:00 05:00 WBC 3.3 L RBC 2.99 L Hgb 8.2 L Hct 25.9 L MCH 27 L RDW 19.2 H Lyman % (Auto) 13.2 H Eos % (Auto) 5.8 H Lymph # 0.5 L APTT D-Dimer Heparin Anti-Xa Level POC ABG pH POC ABG pCO2 POC ABG pO2 Potassium 5.6 H Chloride 110.8 H BUN 50 H Creatinine 2.2 H Glucose 52 L POC Glucose 60 L Hemoglobin A1c Lactic Acid Calcium 8.1 L Alkaline Phosphatase Total Creatine Kinase CK-MB (CK-2) CK-MB (CK-2) Rel Index Troponin T NT-Pro-B Natriuret Pep Total Protein Albumin LDL Cholesterol Direct HDL Cholesterol Urine Creatinine Urine Total Protein 10/10/18 10/10/18 10/10/18 05:00 06:11 11:30 WBC RBC Hgb Hct MCH RDW Lyman % (Auto) Eos % (Auto) Lymph # APTT D-Dimer Heparin Anti-Xa Level POC ABG pH POC ABG pCO2 POC ABG pO2 Potassium Chloride BUN Creatinine Glucose POC Glucose 57 L 48 L Hemoglobin A1c 8.2 H Lactic Acid Calcium Alkaline Phosphatase Total Creatine Kinase CK-MB (CK-2) CK-MB (CK-2) Rel Index Troponin T NT-Pro-B Natriuret Pep Total Protein Albumin LDL Cholesterol Direct HDL Cholesterol Urine Creatinine Urine Total Protein 10/10/18 10/10/18 10/10/18 12:22 13:36 13:36 WBC RBC Hgb Hct MCH RDW Lyman % (Auto) Eos % (Auto) Lymph # APTT D-Dimer 927.57 H Heparin Anti-Xa Level POC ABG pH 7.286 L POC ABG pCO2 47.3 H POC ABG pO2 65 L Potassium Chloride BUN Creatinine Glucose POC Glucose Hemoglobin A1c Lactic Acid 0.60 L Calcium Alkaline Phosphatase Total Creatine Kinase CK-MB (CK-2) CK-MB (CK-2) Rel Index Troponin T NT-Pro-B Natriuret Pep Total Protein Albumin LDL Cholesterol Direct HDL Cholesterol Urine Creatinine Urine Total Protein 10/10/18 10/10/18 10/10/18 16:42 21:12 22:30 WBC RBC Hgb Hct MCH RDW Lyman % (Auto) Eos % (Auto) Lymph # APTT D-Dimer Heparin Anti-Xa Level POC ABG pH POC ABG pCO2 POC ABG pO2 Potassium Chloride BUN Creatinine Glucose POC Glucose 122 H 119 H Hemoglobin A1c Lactic Acid Calcium Alkaline Phosphatase Total Creatine Kinase CK-MB (CK-2) CK-MB (CK-2) Rel Index Troponin T NT-Pro-B Natriuret Pep Total Protein Albumin LDL Cholesterol Direct HDL Cholesterol Urine Creatinine 118.6 H Urine Total Protein 152 H 01/11/19 01/11/19 01/11/19 04:31 04:31 13:15 WBC RBC Hgb 8.7 L Hct 27.9 L MCH RDW Lyman % (Auto) Eos % (Auto) Lymph # APTT D-Dimer Heparin Anti-Xa Level POC ABG pH POC ABG pCO2 POC ABG pO2 Potassium 6.6 H* 6.4 H* Chloride BUN 55 H Creatinine 2.9 H Glucose POC Glucose Hemoglobin A1c Lactic Acid Calcium 7.6 L Alkaline Phosphatase Total Creatine Kinase CK-MB (CK-2) CK-MB (CK-2) Rel Index Troponin T NT-Pro-B Natriuret Pep Total Protein Albumin LDL Cholesterol Direct HDL Cholesterol Urine Creatinine Urine Total Protein 10/11/18 10/11/18 10/12/18 20:45 22:37 04:25 WBC RBC Hgb Hct MCH RDW Lyman % (Auto) Eos % (Auto) Lymph # APTT D-Dimer Heparin Anti-Xa Level POC ABG pH POC ABG pCO2 POC ABG pO2 Potassium Chloride BUN 37 H 38 H Creatinine 2.4 H 2.3 H Glucose POC Glucose 117 H Hemoglobin A1c Lactic Acid Calcium 7.5 L 7.6 L Alkaline Phosphatase 261 H Total Creatine Kinase CK-MB (CK-2) CK-MB (CK-2) Rel Index Troponin T NT-Pro-B Natriuret Pep Total Protein 6.2 L Albumin 3.0 L LDL Cholesterol Direct HDL Cholesterol Urine Creatinine Urine Total Protein 10/12/18 10:02 WBC RBC Hgb 7.6 L Hct 24.1 L MCH RDW Lyman % (Auto) Eos % (Auto) Lymph # APTT D-Dimer Heparin Anti-Xa Level POC ABG pH POC ABG pCO2 POC ABG pO2 Potassium Chloride BUN Creatinine Glucose POC Glucose Hemoglobin A1c Lactic Acid Calcium Alkaline Phosphatase Total Creatine Kinase CK-MB (CK-2) CK-MB (CK-2) Rel Index Troponin T NT-Pro-B Natriuret Pep Total Protein Albumin LDL Cholesterol Direct HDL Cholesterol Urine Creatinine Urine Total Protein Allied health notes reviewed: nursing
[2018-10-12] MEDS: PRAVACHOL PO SCH (21:23)
[2018-10-12] MEDS: RisperDAL PO SCH (21:23)
[2018-10-12] MEDS: LANTUS SUB-Q SCH (21:30)
[2018-10-12] MEDS ORDERED: NACL 0.9 (PRIMING MACHINE ONLY DIALYSIS) MC ONE (22:33)
[2018-10-13 04:02] LABS: Hematocrit 23.8 % (35.5-45.6); Hemoglobin 7.7 gm/dl (11.8-15.2)
[2018-10-13 04:13] LABS: Calcium 8.3 mg/dL (8.4-10.2)
[2018-10-13] MEDS: HEPARIN SUB-Q SCH ×3 (05:53→22:37)
[2018-10-13] MEDS: NEURONTIN PO SCH ×3 (05:54→22:33)
[2018-10-13] MEDS: FEOSOL PO SCH (10:11)
[2018-10-13] MEDS: PEPCID PO SCH (10:11)
[2018-10-13] MEDS: ASPIRIN PO SCH (10:11)
[2018-10-13] MEDS: HumuLIN R SUB-Q SCH ×4 (10:12→23:24)
[2018-10-13] MEDS: SODIUM CHLORIDE FLUSH SYRINGE 10 ML IV SCH ×2 (10:12→22:33)
--- NOTE | 2018-10-13 12:04 | Progress Note ---
Assessment and Plan 1. Acute kidney injury: MAXIMO likely Vasomotor / hemodynamic mediated in the setting of hypotension. Patient received hemodialysis on 10/11/2018 for continued decline in the Renal function and hyperkalemia. Renal function is better. Monitor renal function and [employer] needs. 2. FEN: Volume overload, s/p Isoated UF yesterday. IV Lasix. 3. CHF exacerbation: Was on Dobutamine drip. 4. Hypotension: BP is better. 5. Anemia: Monitor. Subjective Date of service: 10/13/18 Principal diagnosis: Severe Sepsis with Shock; Acute encephalopathy; MAXIMO; Diabetes II; CMOP Interval history: Patient was seen and examined at the bedside. Objective - Vital Signs Vital signs: Vital Signs - 12hr 10/13/18 10/13/18 10/13/18 00:15 00:30 00:46 Temperature Pulse Rate 65 65 63 Pulse Rate [ From Monitor] Respiratory 12 10 L 10 L Rate Blood Pressure 142/94 141/84 141/84 O2 Sat by Pulse 98 99 97 Oximetry 10/13/18 10/13/18 10/13/18 01:00 01:16 01:30 Temperature Pulse Rate 61 60 59 L Pulse Rate [ From Monitor] Respiratory 9 L 9 L 9 L Rate Blood Pressure 141/84 141/84 141/84 O2 Sat by Pulse 97 98 98 Oximetry 10/13/18 10/13/18 10/13/18 01:46 02:00 02:15 Temperature Pulse Rate 66 68 66 Pulse Rate [ From Monitor] Respiratory 15 10 L 12 Rate Blood Pressure 141/84 141/84 154/92 O2 Sat by Pulse 98 97 96 Oximetry 10/13/18 10/13/18 10/13/18 02:30 02:46 03:00 Temperature Pulse Rate 67 67 67 Pulse Rate [ From Monitor] Respiratory 12 12 10 L Rate Blood Pressure 147/87 163/99 163/99 O2 Sat by Pulse 97 94 92 Oximetry 10/13/18 10/13/18 10/13/18 03:16 03:30 03:46 Temperature Pulse Rate 68 73 68 Pulse Rate [ From Monitor] Respiratory 11 L 10 L 13 Rate Blood Pressure 163/99 163/99 163/99 O2 Sat by Pulse 97 100 97 Oximetry 10/13/18 10/13/18 10/13/18 04:00 04:15 04:30 Temperature 96.1 F L Pulse Rate 66 67 65 Pulse Rate [ 65 From Monitor] Respiratory 13 11 L 11 L Rate Blood Pressure 140/82 153/95 140/82 O2 Sat by Pulse 97 92 Oximetry 10/13/18 10/13/18 10/13/18 04:46 05:00 05:15 Temperature Pulse Rate 66 66 66 Pulse Rate [ From Monitor] Respiratory 11 L 13 13 Rate Blood Pressure 162/95 153/95 171/107 O2 Sat by Pulse 99 95 Oximetry 10/13/18 10/13/18 10/13/18 05:30 05:46 06:00 Temperature Pulse Rate 65 66 65 Pulse Rate [ From Monitor] Respiratory 11 L 17 19 Rate Blood Pressure 159/98 159/98 163/97 O2 Sat by Pulse 98 Oximetry 10/13/18 10/13/18 10/13/18 06:15 06:30 06:46 Temperature Pulse Rate 66 66 67 Pulse Rate [ From Monitor] Respiratory 13 12 14 Rate Blood Pressure 164/90 167/96 167/99 O2 Sat by Pulse 93 97 Oximetry 10/13/18 07:00 Temperature Pulse Rate 67 Pulse Rate [ From Monitor] Respiratory 17 Rate Blood Pressure 167/99 O2 Sat by Pulse Oximetry - General Appearance General appearance: well-developed, well-nourished, appears stated age, obese, other (not in distress) EENT: ATNC, PERRL, hearing intact, vision intact Neck: supple Respiratory: Present: Clear to Ascultation Cardiology: regular, S1S2, no murmurs Gastrointestinal: normoactive bowel sounds, no tenderness, no distended Integumentary: no rash, warm and dry Neurologic: other (less tremors, able to move extremities, dysarthric) Musculoskeletal: other (2+ edema of both LEs noted) - Lab 10/13/18 03:28 10/13/18 03:28 Most recent lab results Calcium 8.3 mg/dL (8.4-10.2) L 10/13/18 03:28 Magnesium 2.00 mg/dL (1.7-2.3) 10/11/18 20:45 Urine Creatinine 118.6 mg/dL (0.1-20.0) H 10/10/18 22:30 Urine Sodium 35 mmol/L 10/10/18 22:30 Urine Total Protein 152 mg/dL (5-11.8) H 10/10/18 22:30 Medications & Allergies - Medications Allergies/Adverse Reactions: Allergies No Known Allergies Allergy (Unverified 10/09/18 10:44) Home Medications: Home Medications Medication Instructions Recorded Confirmed Last Taken Type Carvedilol [Coreg] 3.125 mg PO BID 10/09/18 10/09/[address] [DepaKOTE DR] 500 mg PO BID 10/09/18 10/09/18 Unknown History Ferrous Sulfate [Feosol] 325 mg PO QDAY 10/09/18 10/09/18 Unknown History Furosemide [Lasix] 80 mg PO DAILY 10/09/18 10/09/18 Unknown History Gabapentin [Neurontin] 300 mg PO Q8HR 10/09/18 10/09/18 Unknown History ISOSORBIDE MONOnitrate [Imdur ER] 30 mg PO DAILY 10/09/18 10/09/18 Unknown History Insulin Glargine,Hum.rec.anlog 40 units SQ QHS 10/09/18 10/09/18 Unknown History [Lantus] Magnesium Oxide [Mag-Ox] 400 mg PO DAILY 10/09/18 10/09/18 Unknown History Simvastatin [Zocor TAB] 20 mg PO QHS 10/09/18 10/09/18 Unknown History Sulfamethoxazole/Trimethoprim 1 each PO BID 10/09/18 10/09/18 Unknown History [Bactrim DS TAB] glipiZIDE [Glipizide] 10 mg PO DAILY 10/09/18 10/09/18 Unknown History hydrALAZINE [Apresoline TAB] 100 mg PO BID 10/09/18 10/09/18 Unknown History risperiDONE [RisperDAL] 1 mg PO QHS 10/09/18 10/09/18 Unknown History Active Medications: Generic Name Dose Route Start Last Admin Trade Name Freq PRN Reason Stop Dose Admin Albumin Human 25 gm 10/11/18 09:35 Alburx 25% (Albumin) IV JUDE PRN Hypotension Aspirin 325 mg 10/10/18 10:00 10/13/18 10:11 Aspirin PO 325 mg QDAY JAMIL Administration Dextrose 50 ml 10/10/18 11:03 10/10/18 11:31 D50w (25gm) Syringe IV 50 ml PRN PRN Administration Hypoglycemia Divalproex Sodium 500 mg 10/09/18 22:00 10/13/18 10:[address] PO 500 mg BID JAMIL Administration Famotidine 20 mg 10/10/18 12:00 10/13/18 10:11 Pepcid PO 20 mg DAILY JAMIL Administration Ferrous Sulfate 325 mg 10/10/18 10:00 10/13/18 10:11 Feosol PO 325 mg QDAY JAMIL Administration Gabapentin 300 mg 10/09/18 14:00 10/13/18 05:54 Neurontin PO 300 mg Q8HR JAMIL Administration Heparin Sodium (Porcine) 5,000 unit 10/11/18 15:00 10/13/18 05:53 Heparin SUB-Q 5,000 unit Q8HR JAMIL Administration Norepinephrine 4 mg in 250 mls @ 7.5 mls/hr 10/09/18 13:00 10/10/18 12:02 Levophed Drip 4 Mg/Ns 250 Ml IV 0 mcg/min TITR JAMIL 0 mls/hr Titration Protocol 2 MCG/MIN Dobutamine HCl/Dextrose 500 mg in 250 mls @ 8.925 mls/hr 10/11/18 10:00 0 10/11/18 22:30 Dobutrex Drip 500mg/D5w 250ml IV 1.5 mcg/kg/min TITR JAMIL 5.355 mls/hr Infusion 2.5 MCG/KG/MIN Sodium Chloride 100 mls @ 999 mls/hr 10/12/18 14:09 Nacl 0.9% IV JUDE PRN Hypotension Insulin Glargine 40 units 10/09/18 22:00 10/12/18 21:30 Lantus SUB-Q 40 units QHS JAMIL Administration Insulin Human Regular 0 units 10/10/18 11:30 10/13/18 10:12 Humulin R SUB-Q Not Given ACHS [facility] Protocol Levofloxacin 500 mg 10/12/18 10:00 10/12/18 10:51 Levaquin PO 10/18/18 10:01 500 mg Q48HR JAMIL Administration Pravastatin Sodium 40 mg 10/09/18 22:00 10/12/18 21:23 Pravachol PO 40 mg QHS JAMIL Administration Risperidone 1 mg 10/09/18 22:00 10/12/18 21:23 Risperdal PO 1 mg QHS JAMIL Administration Sodium Chloride 10 ml 10/09/18 13:00 10/13/18 10:12 Sodium Chloride Flush Syringe 10 Ml IV 10 ml BID JAMIL Administration Sodium Chloride 10 ml 10/09/18 13:00 Sodium Chloride Flush Syringe 10 Ml IV PRN PRN LINE FLUSH
[2018-10-13] MEDS ORDERED: LASIX IV ONE (13:00)
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
--- NOTE | 2018-10-13 14:28 | Progress Note ---
Assessment and Plan Severe Sepsis syndrome. Shock (cardiogenic versus septic) Acute encephalopathy. Possible seizures. History of diabetes CMOP Leukopenia. Anemia that is normocytic. Acute hypercapnic respiratory acidosis. Hyperkalemia. Acute kidney injury. Non-ST elevation myocardial infarction. Hypoglycemia. Possible peripheral vascular disease. Obesity. - supplemental oxygen to keep sats > 90% - BIPAP qhs possible sleep apnea - PT/OT as tolerated - aspiration precautions - prn bronchodilators with pulmonary hygiene per RT - continue empiric Antibiotics to complete course (Levaquin) -cardio-protective measures -continue all current care Transfer telemetry Subjective Date of service: 10/13/18 Principal diagnosis: Severe Sepsis with Shock; Acute encephalopathy; MAXIMO; Diabetes II; CMOP Interval history: Patient is seen today for: Severe Sepsis syndrome; Shock (cardiogenic versus septic); Acute encephalopathy; Possible seizures; History of diabetes; CMOP Seen and examined at bedside; 24hour events reviewed; nursing and respiratory care staff consulted; no adverse overnight events reported to me; resting peacefully in bed; s/p dialysis; off dobutamine F; denies acute chest pains or palpitations; no chest pain, no shortness of breath. "I am hungry" Objective Vital Signs - 12hr 10/13/18 10/13/18 10/13/18 02:30 02:46 03:00 Temperature Pulse Rate 67 67 67 Pulse Rate [ From Monitor] Respiratory 12 12 10 L Rate Blood Pressure 147/87 163/99 163/99 O2 Sat by Pulse 97 94 92 Oximetry 10/13/18 10/13/18 10/13/18 03:16 03:30 03:46 Temperature Pulse Rate 68 73 68 Pulse Rate [ From Monitor] Respiratory 11 L 10 L 13 Rate Blood Pressure 163/99 163/99 163/99 O2 Sat by Pulse 97 100 97 Oximetry 10/13/18 10/13/18 10/13/18 04:00 04:15 04:30 Temperature 96.1 F L Pulse Rate 66 67 65 Pulse Rate [ 65 From Monitor] Respiratory 13 11 L 11 L Rate Blood Pressure 140/82 153/95 140/82 O2 Sat by Pulse 97 92 Oximetry 10/13/18 10/13/18 10/13/18 04:46 05:00 05:15 Temperature Pulse Rate 66 66 66 Pulse Rate [ From Monitor] Respiratory 11 L 13 13 Rate Blood Pressure 162/95 153/95 171/107 O2 Sat by Pulse 99 95 Oximetry 10/13/18 10/13/18 10/13/18 05:30 05:46 06:00 Temperature Pulse Rate 65 66 65 Pulse Rate [ From Monitor] Respiratory 11 L 17 19 Rate Blood Pressure 159/98 159/98 163/97 O2 Sat by Pulse 98 Oximetry 10/13/18 10/13/18 10/13/18 06:15 06:30 06:46 Temperature Pulse Rate 66 66 67 Pulse Rate [ From Monitor] Respiratory 13 12 14 Rate Blood Pressure 164/90 167/96 167/99 O2 Sat by Pulse 93 97 Oximetry 10/13/18 10/13/18 10/13/18 07:00 07:16 07:30 Temperature Pulse Rate 67 65 65 Pulse Rate [ From Monitor] Respiratory 17 12 10 L Rate Blood Pressure 167/99 165/91 165/91 O2 Sat by Pulse 98 99 Oximetry 10/13/18 10/13/18 10/13/18 07:45 08:00 08:15 Temperature 97.6 F Pulse Rate 66 66 67 Pulse Rate [ From Monitor] Respiratory 12 11 L 17 Rate Blood Pressure 169/98 169/98 161/89 O2 Sat by Pulse 95 98 93 Oximetry 10/13/18 10/13/18 10/13/18 08:30 08:46 09:00 Temperature Pulse Rate 68 67 66 Pulse Rate [ From Monitor] Respiratory 13 13 17 Rate Blood Pressure 157/83 165/97 165/97 O2 Sat by Pulse 97 83 L 82 L Oximetry 10/13/18 10/13/18 10/13/18 09:15 09:30 09:46 Temperature Pulse Rate 64 63 64 Pulse Rate [ From Monitor] Respiratory 13 15 12 Rate Blood Pressure 158/91 164/92 163/95 O2 Sat by Pulse 81 L 81 L 95 Oximetry 10/13/18 10/13/18 10/13/18 10:00 10:16 10:30 Temperature Pulse Rate 64 63 61 Pulse Rate [ From Monitor] Respiratory 14 13 29 H Rate Blood Pressure 173/97 152/84 152/84 O2 Sat by Pulse 93 91 97 Oximetry 10/13/18 10/13/18 10/13/18 10:46 11:00 11:15 Temperature Pulse Rate 62 61 Pulse Rate [ From Monitor] Respiratory 13 13 Rate Blood Pressure 141/85 141/85 153/93 O2 Sat by Pulse 91 96 96 Oximetry 10/13/18 10/13/18 10/13/18 11:32 11:46 12:00 Temperature Pulse Rate 62 110 H Pulse Rate [ From Monitor] Respiratory 23 15 16 Rate Blood Pressure 155/93 169/95 169/95 O2 Sat by Pulse 97 Oximetry 10/13/18 10/13/18 10/13/18 12:16 12:30 12:46 Temperature Pulse Rate 145 H 63 62 Pulse Rate [ From Monitor] Respiratory 18 15 13 Rate Blood Pressure 155/93 155/93 181/114 O2 Sat by Pulse 96 96 96 Oximetry Constitutional: no acute distress, alert, other (middle aged AAM, normocephalic and atraumatic with mildly increased respiratory effort) Eyes: non-icteric ENT: oropharynx moist Neck: supple, no lymphadenopathy, no JVD Effort: mildly labored Ascultation: Bilateral: diminished breath sounds, rales (bases) Percussion: Bilateral: not dull Cardiovascular: regular rate and rhythm Gastrointestinal: normoactive bowel sounds, soft, non-tender, non-distended Integumentary: rash (feet) Extremities: no cyanosis, pulses normal, no ischemia or petechiae, edema (1+) Neurologic: normal mental status, non-focal exam, pupils equal and round, motor strength normal and, other (sensory numbness to feet) Psychiatric: mood appropriate, affect normal CBC and BMP: 10/13/18 03:28 10/13/18 03:28 ABG, PT/INR, D-dimer: ABG POC ABG pH 7.286 (7.35-7.45) L 10/10/18 12:22 POC ABG pCO2 47.3 (35-45) H 10/10/18 12:22 POC ABG pO2 65 (80-105) L 10/10/18 12:22 POC ABG HCO3 22.5 10/10/18 12:22 POC ABG Total CO2 24 10/10/18 12:22 POC ABG O2 Sat 90 10/10/18 12:22 PT/INR, D-dimer PT 13.0 Sec. (12.2-14.9) 10/09/18 14:25 INR 0.94 (0.87-1.13) 10/09/18 14:25 D-Dimer 927.57 ng/mlDDU (0-234) H 10/10/18 13:36 Abnormal lab findings: Abnormal Labs 10/09/18 10/09/18 10/09/18 11:22 11:22 11:22 WBC 3.3 L RBC 3.03 L Hgb 8.4 L Hct 25.8 L MCH RDW 18.7 H Cloud % (Auto) 12.1 H Eos % (Auto) 4.6 H Lymph # 0.5 L APTT 42.8 H D-Dimer Heparin Anti-Xa Level POC ABG pH POC ABG pCO2 POC ABG pO2 Potassium 5.2 H Chloride 108.2 H BUN 49 H Creatinine 1.9 H Glucose 153 H POC Glucose Hemoglobin A1c Lactic Acid Calcium Alkaline Phosphatase Total Creatine Kinase 481 H CK-MB (CK-2) 20.5 H CK-MB (CK-2) Rel Index 4.2 H Troponin T 0.153 H* NT-Pro-B Natriuret Pep 2963 H Total Protein Albumin LDL Cholesterol Direct 49 L HDL Cholesterol 73 H Urine Creatinine Urine Total Protein 10/09/18 10/09/18 10/09/18 13:43 14:25 14:25 WBC RBC Hgb 8.2 L Hct 26.2 L MCH RDW Cloud % (Auto) Eos % (Auto) Lymph # APTT 42.4 H D-Dimer Heparin Anti-Xa Level POC ABG pH POC ABG pCO2 POC ABG pO2 Potassium Chloride BUN Creatinine Glucose POC Glucose 167 H Hemoglobin A1c Lactic Acid Calcium Alkaline Phosphatase Total Creatine Kinase CK-MB (CK-2) CK-MB (CK-2) Rel Index Troponin T NT-Pro-B Natriuret Pep Total Protein Albumin LDL Cholesterol Direct HDL Cholesterol Urine Creatinine Urine Total Protein 10/09/18 10/09/18 10/09/18 17:28 20:56 21:23 WBC RBC Hgb Hct MCH RDW Cloud % (Auto) Eos % (Auto) Lymph # APTT D-Dimer Heparin Anti-Xa Level 0.28 L POC ABG pH POC ABG pCO2 POC ABG pO2 Potassium Chloride BUN Creatinine Glucose POC Glucose Hemoglobin A1c Lactic Acid Calcium Alkaline Phosphatase Total Creatine Kinase CK-MB (CK-2) CK-MB (CK-2) Rel Index Troponin T 0.136 H* 0.139 H* NT-Pro-B Natriuret Pep Total Protein Albumin LDL Cholesterol Direct HDL Cholesterol Urine Creatinine Urine Total Protein 10/10/18 10/10/18 10/10/18 00:10 05:00 05:00 WBC 3.3 L RBC 2.99 L Hgb 8.2 L Hct 25.9 L MCH 27 L RDW 19.2 H Cloud % (Auto) 13.2 H Eos % (Auto) 5.8 H Lymph # 0.5 L APTT D-Dimer Heparin Anti-Xa Level POC ABG pH POC ABG pCO2 POC ABG pO2 Potassium 5.6 H Chloride 110.8 H BUN 50 H Creatinine 2.2 H Glucose 52 L POC Glucose 60 L Hemoglobin A1c Lactic Acid Calcium 8.1 L Alkaline Phosphatase Total Creatine Kinase CK-MB (CK-2) CK-MB (CK-2) Rel Index Troponin T NT-Pro-B Natriuret Pep Total Protein Albumin LDL Cholesterol Direct HDL Cholesterol Urine Creatinine Urine Total Protein 10/10/18 10/10/18 10/10/18 05:00 06:11 11:30 WBC RBC Hgb Hct MCH RDW Cloud % (Auto) Eos % (Auto) Lymph # APTT D-Dimer Heparin Anti-Xa Level POC ABG pH POC ABG pCO2 POC ABG pO2 Potassium Chloride BUN Creatinine Glucose POC Glucose 57 L 48 L Hemoglobin A1c 8.2 H Lactic Acid Calcium Alkaline Phosphatase Total Creatine Kinase CK-MB (CK-2) CK-MB (CK-2) Rel Index Troponin T NT-Pro-B Natriuret Pep Total Protein Albumin LDL Cholesterol Direct HDL Cholesterol Urine Creatinine Urine Total Protein 10/10/18 10/10/18 10/10/18 12:22 13:36 13:36 WBC RBC Hgb Hct MCH RDW Cloud % (Auto) Eos % (Auto) Lymph # APTT D-Dimer 927.57 H Heparin Anti-Xa Level POC ABG pH 7.286 L POC ABG pCO2 47.3 H POC ABG pO2 65 L Potassium Chloride BUN Creatinine Glucose POC Glucose Hemoglobin A1c Lactic Acid 0.60 L Calcium Alkaline Phosphatase Total Creatine Kinase CK-MB (CK-2) CK-MB (CK-2) Rel Index Troponin T NT-Pro-B Natriuret Pep Total Protein Albumin LDL Cholesterol Direct HDL Cholesterol Urine Creatinine Urine Total Protein 10/10/18 10/10/18 10/10/18 16:42 21:12 22:30 WBC RBC Hgb Hct MCH RDW Cloud % (Auto) Eos % (Auto) Lymph # APTT D-Dimer Heparin Anti-Xa Level POC ABG pH POC ABG pCO2 POC ABG pO2 Potassium Chloride BUN Creatinine Glucose POC Glucose 122 H 119 H Hemoglobin A1c Lactic Acid Calcium Alkaline Phosphatase Total Creatine Kinase CK-MB (CK-2) CK-MB (CK-2) Rel Index Troponin T NT-Pro-B Natriuret Pep Total Protein Albumin LDL Cholesterol Direct HDL Cholesterol Urine Creatinine 118.6 H Urine Total Protein 152 H 10/11/18 10/11/18 10/11/18 04:31 04:31 13:15 WBC RBC Hgb 8.7 L Hct 27.9 L MCH RDW Cloud % (Auto) Eos % (Auto) Lymph # APTT D-Dimer Heparin Anti-Xa Level POC ABG pH POC ABG pCO2 POC ABG pO2 Potassium 6.6 H* 6.4 H* Chloride BUN 55 H Creatinine 2.9 H Glucose POC Glucose Hemoglobin A1c Lactic Acid Calcium 7.6 L Alkaline Phosphatase Total Creatine Kinase CK-MB (CK-2) CK-MB (CK-2) Rel Index Troponin T NT-Pro-B Natriuret Pep Total Protein Albumin LDL Cholesterol Direct HDL Cholesterol Urine Creatinine Urine Total Protein 10/11/18 10/11/18 10/12/18 20:45 22:37 04:25 WBC RBC Hgb Hct MCH RDW Cloud % (Auto) Eos % (Auto) Lymph # APTT D-Dimer Heparin Anti-Xa Level POC ABG pH POC ABG pCO2 POC ABG pO2 Potassium Chloride BUN 37 H 38 H Creatinine 2.4 H 2.3 H Glucose POC Glucose 117 H Hemoglobin A1c Lactic Acid Calcium 7.5 L 7.6 L Alkaline Phosphatase 261 H Total Creatine Kinase CK-MB (CK-2) CK-MB (CK-2) Rel Index Troponin T NT-Pro-B Natriuret Pep Total Protein 6.2 L Albumin 3.0 L LDL Cholesterol Direct HDL Cholesterol Urine Creatinine Urine Total Protein 10/12/18 10/12/18 10/13/18 10:02 21:33 03:28 WBC RBC Hgb 7.6 L 7.7 L Hct 24.1 L 23.8 L MCH RDW Cloud % (Auto) Eos % (Auto) Lymph # APTT D-Dimer Heparin Anti-Xa Level POC ABG pH POC ABG pCO2 POC ABG pO2 Potassium Chloride BUN Creatinine Glucose POC Glucose 109 H Hemoglobin A1c Lactic Acid Calcium Alkaline Phosphatase Total Creatine Kinase CK-MB (CK-2) CK-MB (CK-2) Rel Index Troponin T NT-Pro-B Natriuret Pep Total Protein Albumin LDL Cholesterol Direct HDL Cholesterol Urine Creatinine Urine Total Protein 10/13/18 10/13/18 03:28 08:27 WBC RBC Hgb Hct MCH RDW Cloud % (Auto) Eos % (Auto) Lymph # APTT D-Dimer Heparin Anti-Xa Level POC ABG pH POC ABG pCO2 POC ABG pO2 Potassium Chloride BUN 38 H Creatinine 1.9 H Glucose POC Glucose 136 H Hemoglobin A1c Lactic Acid Calcium 8.3 L Alkaline Phosphatase Total Creatine Kinase CK-MB (CK-2) CK-MB (CK-2) Rel Index Troponin T NT-Pro-B Natriuret Pep Total Protein Albumin LDL Cholesterol Direct HDL Cholesterol Urine Creatinine Urine Total Protein Allied health notes reviewed: nursing
[2018-10-13] MEDS: APRESOLINE PO SCH ×2 (14:55→22:33)
--- NOTE | 2018-10-13 15:41 | Progress Note ---
Assessment and Plan Acute HFrEF Cardiomyopathy - EF 35% Altered mental status - head CT with NAF Acute renal failure / hyperkalemia Hypotension NSTEMI type II - ECG with NAF, pt denies chest pain Sinus bradycardia Anemia HTN DM HLP ? h/o psych disorder Plan: Echo reviewed - EF 35%. Currently weaned off levophed. Initiate dobutamine at 2.5mcg/kg/min. 10/12/2018>had femoral vascular access . B.p systolic 180 mm hg. Chart reviewed. 10/13/2018>patient is confused,no significant change. Subjective Date of service: 10/13/18 Principal diagnosis: Severe Sepsis with Shock; Acute encephalopathy; MAXIMO; Diabetes II; CMOP Interval history: Patient is comfortable,in no acute distress.Confused. Objective Vital Signs Temp Pulse Pulse Resp BP Pulse Ox 10/13/18 15:16 62 11 L 180/92 94 10/13/18 15:00 66 15 181/94 98 10/13/18 14:46 62 13 181/94 93 10/13/18 14:30 63 14 156/78 95 10/13/18 14:16 62 13 156/78 95 10/13/18 14:00 12 181/114 10/13/18 13:46 63 9 L 181/114 98 10/13/18 13:30 63 16 181/114 98 10/13/18 13:16 64 19 181/114 97 10/13/18 13:00 63 12 181/114 98 10/13/18 12:46 62 13 181/114 96 10/13/18 12:30 63 15 155/93 96 10/13/18 12:16 145 H 18 155/93 96 10/13/18 12:00 97.5 F L 110 H 16 169/95 97 10/13/18 11:46 62 15 169/95 10/13/18 11:32 23 155/93 10/13/18 11:15 61 13 153/93 96 10/13/18 11:00 62 13 141/85 96 10/13/18 10:46 141/85 91 10/13/18 10:30 61 29 H 152/84 97 10/13/18 10:16 63 13 152/84 91 10/13/18 10:00 64 14 173/97 93 10/13/18 09:46 64 12 163/95 95 10/13/18 09:30 63 15 164/92 81 L 10/13/18 09:15 64 13 158/91 81 L 10/13/18 09:00 66 17 165/97 82 L 10/13/18 08:46 67 13 165/97 83 L 10/13/18 08:30 68 13 157/83 97 10/13/18 08:15 67 17 161/89 93 10/13/18 08:00 97.6 F 66 11 L 169/98 98 10/13/18 07:45 66 12 169/98 95 10/13/18 07:30 65 10 L 165/91 99 10/13/18 07:16 65 12 165/91 98 10/13/18 07:00 67 17 167/99 10/13/18 06:46 67 14 167/99 10/13/18 06:30 66 12 167/96 97 10/13/18 06:15 66 13 164/90 93 10/13/18 06:00 65 19 163/97 98 10/13/18 05:46 66 17 159/98 10/13/18 05:30 65 11 L 159/98 10/13/18 05:15 66 13 171/107 95 10/13/18 05:00 66 13 153/95 99 10/13/18 04:46 66 11 L 162/95 10/13/18 04:30 65 11 L 140/82 10/13/18 04:15 67 11 L 153/95 92 10/13/18 04:00 96.1 F L 66 65 13 140/82 97 10/13/18 03:46 68 13 163/99 97 10/13/18 03:30 73 10 L 163/99 100 10/13/18 03:16 68 11 L 163/99 97 10/13/18 03:00 67 10 L 163/99 92 10/13/18 02:46 67 12 163/99 94 10/13/18 02:30 67 12 147/87 97 10/13/18 02:15 66 12 154/92 96 10/13/18 02:00 68 10 L 141/84 97 10/13/18 01:46 66 15 141/84 98 10/13/18 01:30 59 L 9 L 141/84 98 10/13/18 01:16 60 9 L 141/84 98 10/13/18 01:00 61 9 L 141/84 97 10/13/18 00:46 63 10 L 141/84 97 10/13/18 00:30 65 10 L 141/84 99 10/13/18 00:15 65 12 142/94 98 10/13/18 00:00 97.0 F L 62 68 10 L 141/84 96 10/12/18 23:48 64 15 129/79 98 10/12/18 23:45 64 12 129/79 93 10/12/18 23:30 65 18 137/89 100 10/12/18 23:15 63 10 L 137/89 94 10/12/18 23:00 63 12 171/83 97 10/12/18 22:46 64 12 124/73 99 10/12/18 22:30 64 13 124/73 97 10/12/18 22:16 61 10 L 124/73 96 10/12/18 22:00 61 12 137/96 98 10/12/18 21:45 62 10 L 137/96 94 10/12/18 21:30 64 8 L 170/93 98 10/12/18 21:15 68 10 L 170/93 92 10/12/18 21:00 68 9 L 164/89 96 10/12/18 20:46 67 11 L 164/89 92 10/12/18 20:30 66 10 L 142/89 96 10/12/18 20:16 64 14 142/89 91 10/12/18 20:00 96.9 F L 65 62 9 L 154/84 97 10/12/18 19:45 66 9 L 154/84 92 10/12/18 19:30 67 9 L 163/90 94 10/12/18 19:25 97 10/12/18 19:16 70 11 L 148/88 93 10/12/18 19:00 70 6 L 158/91 94 10/12/18 18:45 72 13 158/91 90 10/12/18 18:30 76 11 L 164/143 97 10/12/18 18:16 81 14 181/85 97 10/12/18 18:00 93 H 10 L 158/79 98 10/12/18 17:46 72 11 L 158/79 88 10/12/18 17:45 72 158/79 10/12/18 17:30 72 16 148/72 96 10/12/18 17:15 73 9 L 148/72 93 10/12/18 17:00 73 11 L 153/77 94 10/12/18 16:45 72 8 L 131/61 92 10/12/18 16:30 73 9 L 128/60 94 10/12/18 16:15 70 10 L 150/91 87 10/12/18 16:00 98 F 78 89 14 128/56 100 10/12/18 15:46 78 13 128/56 83 L - Physical Examination General: No Apparent Distress HEENT: Positive: PERRL, Normocephaly, Mucus Membranes Moist Neck: Positive: neck supple, trachea midline, JVD/HJR (Jugular venous distension noted.) Neuro: Positive: Grossly Intact Abdomen: Positive: Unremarkable. Negative: Tender Skin: Negative: Rash Musculoskeletal: No Pain Extremities: Present: +2 Edema (BLE pitting, weeping ) - Labs and Meds CBC 10/13/18 Range/Units 03:28 Hgb 7.7 L (11.8-15.2) gm/dl Hct 23.8 L (35.5-45.6) % Plt Count 245 (140-440) K/mm3 Comprehensive Metabolic Panel 10/13/18 Range/Units 03:28 Sodium 141 (137-145) mmol/L Potassium 4.4 (3.6-5.0) mmol/L Chloride 104.2 (98-107) mmol/L Carbon Dioxide 29 (22-30) mmol/L BUN 38 H (9-20) mg/dL Creatinine 1.9 H (0.8-1.5) mg/dL Glucose 87 (75-100) mg/dL Calcium 8.3 L (8.4-10.2) mg/dL - Imaging and Cardiology EKG: report reviewed, image reviewed Echo: pending - EKG Sinus rhythms and dysrhythmias: sinus bradycardia - Allied health notes Allied health notes reviewed: nursing
[2018-10-13] MEDS: APRESOLINE IV PRN (20:00)
[2018-10-13] MEDS: PRAVACHOL PO SCH (22:33)
[2018-10-13] MEDS: RisperDAL PO SCH (22:33)
[2018-10-13] MEDS: LANTUS SUB-Q SCH (23:36)
[2018-10-14] MEDS: APRESOLINE PO SCH ×3 (05:42→21:15)
[2018-10-14] MEDS: NEURONTIN PO SCH (05:43)
[2018-10-14] MEDS: HEPARIN SUB-Q SCH ×3 (05:50→21:17)
[2018-10-14 06:40] LABS: Calcium 8.5 mg/dL (8.4-10.2)
[2018-10-14] MEDS: HumuLIN R SUB-Q SCH ×4 (08:00→22:13)
--- NOTE | 2018-10-14 09:21 | Progress Note ---
Assessment and Plan 1. Acute kidney injury: MAXIMO likely Vasomotor / hemodynamic mediated in the setting of hypotension. Patient received hemodialysis on 10/11/2018 for continued decline in the Renal function and hyperkalemia. Renal function appears to be improving. Monitor renal function and DATA REVIEW SPECIALIST needs. 2. FEN: Volume overload, Isolated UF today. 3. CHF exacerbation: Was on Dobutamine drip. 4. Hypotension: BP is better. 5. Anemia: Monitor. Subjective Date of service: 10/14/18 Principal diagnosis: Severe Sepsis with Shock; Acute encephalopathy; MAXIMO; Diabetes II; CMOP Interval history: Patient was seen and examined at the bedside. Objective - Vital Signs Vital signs: Vital Signs - 12hr 10/13/18 10/13/18 10/13/18 21:25 22:33 23:07 Temperature 98.0 F Pulse Rate 68 68 Respiratory 20 18 Rate Blood Pressure 140/79 148/98 137/76 O2 Sat by Pulse 97 90 Oximetry 10/14/18 10/14/18 10/14/18 05:42 05:49 07:58 Temperature 96.0 F L 97.4 F L Pulse Rate 68 67 Respiratory 20 16 Rate Blood Pressure 137/76 171/94 153/79 O2 Sat by Pulse 99 Oximetry - General Appearance General appearance: well-developed, well-nourished, appears stated age, obese, other (not in distress) EENT: ATNC, PERRL, mucous membranes moist, hearing intact, vision intact Neck: supple Respiratory: Present: Clear to Ascultation Cardiology: regular, S1S2, no murmurs Gastrointestinal: normoactive bowel sounds Integumentary: no rash Neurologic: other (able to move extremities, tremors noted, dysarthria noted) Musculoskeletal: other (bilateral LE edema and anasarca noted) - Lab 10/14/18 11:01 10/14/18 06:06 Most recent lab results Calcium 8.5 mg/dL (8.4-10.2) 10/14/18 06:06 Phosphorus 4.40 mg/dL (2.5-4.5) 10/14/18 06:06 Magnesium 2.40 mg/dL (1.7-2.3) H 10/14/18 06:06 Urine Creatinine 118.6 mg/dL (0.1-20.0) H 10/10/18 22:30 Urine Sodium 35 mmol/L 10/10/18 22:30 Urine Total Protein 152 mg/dL (5-11.8) H 10/10/18 22:30 Medications & Allergies - Medications Allergies/Adverse Reactions: Allergies No Known Allergies Allergy (Unverified 10/09/18 10:44) Home Medications: Home Medications Medication Instructions Recorded Confirmed Last Taken Type Carvedilol [Coreg] 3.125 mg PO BID 10/09/18 10/09/[address] [DepaKOTE DR] 500 mg PO BID 10/09/18 10/09/18 Unknown History Ferrous Sulfate [Feosol] 325 mg PO QDAY 10/09/18 10/09/18 Unknown History Furosemide [Lasix] 80 mg PO DAILY 10/09/18 10/09/18 Unknown History Gabapentin [Neurontin] 300 mg PO Q8HR 10/09/18 10/09/18 Unknown History ISOSORBIDE MONOnitrate [Imdur ER] 30 mg PO DAILY 10/09/18 10/09/18 Unknown History Insulin Glargine,Hum.rec.anlog 40 units SQ QHS 10/09/18 10/09/18 Unknown History [Lantus] Magnesium Oxide [Mag-Ox] 400 mg PO DAILY 10/09/18 10/09/18 Unknown History Simvastatin [Zocor TAB] 20 mg PO QHS 10/09/18 10/09/18 Unknown History Sulfamethoxazole/Trimethoprim 1 each PO BID 10/09/18 10/09/18 Unknown History [Bactrim DS TAB] glipiZIDE [Glipizide] 10 mg PO DAILY 10/09/18 10/09/18 Unknown History hydrALAZINE [Apresoline TAB] 100 mg PO BID 10/09/18 10/09/18 Unknown History risperiDONE [RisperDAL] 1 mg PO QHS 10/09/18 10/09/18 Unknown History Active Medications: Generic Name Dose Route Start Last Admin Trade Name Freq PRN Reason Stop Dose Admin Albumin Human 25 gm 10/11/18 09:35 Alburx 25% (Albumin) IV JUDE PRN Hypotension Aspirin 325 mg 10/10/18 10:00 10/13/18 10:11 Aspirin PO 325 mg QDAY JAMIL Administration Dextrose 50 ml 10/10/18 11:03 10/10/18 11:31 D50w (25gm) Syringe IV 50 ml PRN PRN Administration Hypoglycemia Divalproex Sodium 500 mg 10/09/18 22:00 10/13/18 22:[address] PO 500 mg BID JAMIL Administration Famotidine 20 mg 10/10/18 12:00 10/13/18 10:11 Pepcid PO 20 mg DAILY JAMIL Administration Ferrous Sulfate 325 mg 10/10/18 10:00 10/13/18 10:11 Feosol PO 325 mg QDAY JAMIL Administration Gabapentin 300 mg 10/09/18 14:00 10/14/18 05:43 Neurontin PO 300 mg Q8HR JAMIL Administration Heparin Sodium (Porcine) 5,000 unit 10/11/18 15:00 10/14/18 05:50 Heparin SUB-Q 5,000 unit Q8HR JAMIL Administration Hydralazine HCl 50 mg 10/13/18 14:00 10/14/18 05:42 Apresoline PO 50 mg Q8HR JAMIL Administration Hydralazine HCl 20 mg 10/13/18 18:43 10/13/18 20:00 Apresoline IV 20 mg Q4HR PRN Administration Increased Blood Pressure Norepinephrine 4 mg in 250 mls @ 7.5 mls/hr 10/09/18 13:00 10/10/18 12:02 Levophed Drip 4 Mg/Ns 250 Ml IV 0 mcg/min TITR JAMIL 0 mls/hr Titration Protocol 2 MCG/MIN Dobutamine HCl/Dextrose 500 mg in 250 mls @ 8.925 mls/hr 10/11/18 10:00 10/11/18 22:30 Dobutrex Drip 500mg/D5w 250ml IV 1.5 mcg/kg/min TITR JAMIL 5.355 mls/hr Infusion 2.5 MCG/KG/MIN Sodium Chloride 100 mls @ 999 mls/hr 10/12/18 14:09 Nacl 0.9% IV JUDE PRN Hypotension Insulin Glargine 40 units 10/09/18 22:00 10/13/18 23:36 Lantus SUB-Q 40 units QHS JMAIL Administration Insulin Human Regular 0 units 10/10/18 11:30 10/13/18 23:24 Humulin R SUB-Q Not Given ACHS [facility] Protocol Levofloxacin 500 mg 10/12/18 10:00 10/12/18 10:51 Levaquin PO 10/18/18 10:01 500 mg Q48HR AJMIL Administration Pravastatin Sodium 40 mg 10/09/18 22:00 10/13/18 22:33 Pravachol PO 40 mg QHS JAMIL Administration Risperidone 1 mg 10/09/18 22:00 10/13/18 22:33 Risperdal PO 1 mg QHS JAMIL Administration Sodium Chloride 10 ml 10/09/18 13:00 10/13/18 22:33 Sodium Chloride Flush Syringe 10 Ml IV 10 ml BID JAMIL Administration Sodium Chloride 10 ml 10/09/18 13:00 Sodium Chloride Flush Syringe 10 Ml IV PRN PRN LINE FLUSH
[2018-10-14] MEDS: ASPIRIN PO SCH (09:33)
[2018-10-14] MEDS: SODIUM CHLORIDE FLUSH SYRINGE 10 ML IV SCH ×2 (09:33→21:17)
[2018-10-14] MEDS: PEPCID PO SCH (09:33)
[2018-10-14] MEDS: FEOSOL PO SCH (09:33)
[2018-10-14] MEDS: LEVAQUIN PO SCH (09:45)
[2018-10-14] MEDS ORDERED: NACL 0.9% 100 ML IV PRN (11:00)
[2018-10-14 11:08] LABS: Hematocrit 24.8 % (35.5-45.6); Hemoglobin 7.8 gm/dl (11.8-15.2)
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
--- NOTE | 2018-10-14 18:00 | Progress Note ---
Assessment and Plan Patient alert, awake. Resting on room air.O2 saturation 96%. No acute respiratory distress. - Patient Problems (1) CHF (congestive heart failure) Current Visit: Yes Status: Acute Qualifiers: Heart failure type: systolic Heart failure chronicity: acute Qualified Code(s): I50.21 - Acute systolic (congestive) heart failure Plan to address problem: Management as per cardiology. (2) Chest pain Current Visit: Yes Status: Acute Plan to address problem: Management as per cardiology. (3) ACS (acute coronary syndrome) Current Visit: Yes Status: Acute Plan to address problem: Management as per cardiology. (4) ARF (acute renal failure) with tubular necrosis Current Visit: Yes Status: Acute Plan to address problem: Management as per nephrology (5) Encephalopathy Current Visit: Yes Status: Acute Plan to address problem: Management as per primary care. (6) Pleural effusion, right Current Visit: Yes Status: Acute Plan to address problem: Obtaining ultrasound of chest. (7) Pulmonary infiltrates on CXR Current Visit: Yes Status: Acute Plan to address problem: Pulmonary infiltrates or atelectasis on the right side. Patient is on levaquin. (8) Acute respiratory failure with hypoxia and hypercapnia Current Visit: Yes Status: Acute Plan to address problem: POC ABG pH 7.286 (7.35-7.45) L 10/10/18 12:22 POC ABG pCO2 47.3 (35-45) H 10/10/18 12:22 POC ABG pO2 65 (80-105) L 10/10/18 12:22 POC ABG HCO3 22.5 10/10/18 12:22 POC ABG Total CO2 24 10/10/18 12:22 POC ABG O2 Sat 90 10/10/18 12:22 Recommend O2 2 litres via nasal canula. Brovanna/budesonide aerosol treatments q 12 hours. Albuterol/atrovent aerosol treatments q 6 hours prn for shortness of breath. Repeat ABGs on room air. Subjective Date of service: 10/14/18 Principal diagnosis: Severe Sepsis with Shock; Acute encephalopathy; MAXIMO; Diabetes II; CMOP Interval history: Patient alert, awake. Resting on room air.O2 saturation 96%. No acute respiratory distress. Objective Vital Signs - 12hr 10/14/18 10/14/18 10/14/18 07:58 11:30 11:45 Temperature 97.4 F L 98.0 F Pulse Rate 67 67 66 Respiratory 16 18 Rate Blood Pressure 153/79 163/78 143/76 O2 Sat by Pulse 99 Oximetry 10/14/18 10/14/18 10/14/18 12:00 12:15 12:30 Temperature Pulse Rate 66 67 67 Respiratory Rate Blood Pressure 140/74 142/76 140/74 O2 Sat by Pulse Oximetry 10/14/18 10/14/18 10/14/18 12:45 13:00 13:15 Temperature Pulse Rate 66 63 66 Respiratory Rate Blood Pressure 142/76 131/73 130/72 O2 Sat by Pulse Oximetry 10/14/18 10/14/18 13:30 13:40 Temperature 98.0 F Pulse Rate 64 62 Respiratory 18 Rate Blood Pressure 132/70 155/86 O2 Sat by Pulse Oximetry Constitutional: no acute distress, alert, other (middle aged AAM, normocephalic and atraumatic with mildly increased respiratory effort) Eyes: non-icteric ENT: oropharynx moist Neck: supple, no lymphadenopathy, no JVD Effort: mildly labored Ascultation: Bilateral: diminished breath sounds, rales (bases) Percussion: Bilateral: not dull Cardiovascular: regular rate and rhythm Gastrointestinal: normoactive bowel sounds, soft, non-tender, non-distended Integumentary: rash (feet) Extremities: no cyanosis, pulses normal, no ischemia or petechiae, edema (1+) Neurologic: normal mental status, non-focal exam, pupils equal and round, motor strength normal and, other (sensory numbness to feet) Psychiatric: mood appropriate, affect normal, other (effect flat.) CBC and BMP: 10/14/18 11:01 10/14/18 06:06 ABG, PT/INR, D-dimer: ABG POC ABG pH 7.286 (7.35-7.45) L 10/10/18 12:22 POC ABG pCO2 47.3 (35-45) H 10/10/18 12:22 POC ABG pO2 65 (80-105) L 10/10/18 12:22 POC ABG HCO3 22.5 10/10/18 12:22 POC ABG Total CO2 24 10/10/18 12:22 POC ABG O2 Sat 90 10/10/18 12:22 PT/INR, D-dimer PT 13.0 Sec. (12.2-14.9) 10/09/18 14:25 INR 0.94 (0.87-1.13) 10/09/18 14:25 D-Dimer 927.57 ng/mlDDU (0-234) H 10/10/18 13:36 Abnormal lab findings: Abnormal Labs 10/09/18 10/09/18 10/09/18 11:22 11:22 11:22 WBC 3.3 L RBC 3.03 L Hgb 8.4 L Hct 25.8 L MCH RDW 18.7 H [place] % (Auto) 12.1 H Eos % (Auto) 4.6 H Lymph # 0.5 L APTT 42.8 H D-Dimer Heparin Anti-Xa Level POC ABG pH POC ABG pCO2 POC ABG pO2 Potassium 5.2 H Chloride 108.2 H BUN 49 H Creatinine 1.9 H Glucose 153 H POC Glucose Hemoglobin A1c Lactic Acid Calcium Magnesium Alkaline Phosphatase Total Creatine Kinase 481 H CK-MB (CK-2) 20.5 H CK-MB (CK-2) Rel Index 4.2 H Troponin T 0.153 H* NT-Pro-B Natriuret Pep 2963 H Total Protein Albumin LDL Cholesterol Direct 49 L HDL Cholesterol 73 H Urine Creatinine Urine Total Protein 10/09/18 10/09/18 10/09/18 13:43 14:25 14:25 WBC RBC Hgb 8.2 L Hct 26.2 L MCH RDW [place] % (Auto) Eos % (Auto) Lymph # APTT 42.4 H D-Dimer Heparin Anti-Xa Level POC ABG pH POC ABG pCO2 POC ABG pO2 Potassium Chloride BUN Creatinine Glucose POC Glucose 167 H Hemoglobin A1c Lactic Acid Calcium Magnesium Alkaline Phosphatase Total Creatine Kinase CK-MB (CK-2) CK-MB (CK-2) Rel Index Troponin T NT-Pro-B Natriuret Pep Total Protein Albumin LDL Cholesterol Direct HDL Cholesterol Urine Creatinine Urine Total Protein 10/09/18 10/09/18 10/09/18 17:28 20:56 21:23 WBC RBC Hgb Hct MCH RDW [place] % (Auto) Eos % (Auto) Lymph # APTT D-Dimer Heparin Anti-Xa Level 0.28 L POC ABG pH POC ABG pCO2 POC ABG pO2 Potassium Chloride BUN Creatinine Glucose POC Glucose Hemoglobin A1c Lactic Acid Calcium Magnesium Alkaline Phosphatase Total Creatine Kinase CK-MB (CK-2) CK-MB (CK-2) Rel Index Troponin T 0.136 H* 0.139 H* NT-Pro-B Natriuret Pep Total Protein Albumin LDL Cholesterol Direct HDL Cholesterol Urine Creatinine Urine Total Protein 10/10/18 10/10/18 10/10/18 00:10 05:00 05:00 WBC 3.3 L RBC 2.99 L Hgb 8.2 L Hct 25.9 L MCH 27 L RDW 19.2 H [place] % (Auto) 13.2 H Eos % (Auto) 5.8 H Lymph # 0.5 L APTT D-Dimer Heparin Anti-Xa Level POC ABG pH POC ABG pCO2 POC ABG pO2 Potassium 5.6 H Chloride 110.8 H BUN 50 H Creatinine 2.2 H Glucose 52 L POC Glucose 60 L Hemoglobin A1c Lactic Acid Calcium 8.1 L Magnesium Alkaline Phosphatase Total Creatine Kinase CK-MB (CK-2) CK-MB (CK-2) Rel Index Troponin T NT-Pro-B Natriuret Pep Total Protein Albumin LDL Cholesterol Direct HDL Cholesterol Urine Creatinine Urine Total Protein 10/10/18 10/10/18 10/10/18 05:00 06:11 11:30 WBC RBC Hgb Hct MCH RDW [place] % (Auto) Eos % (Auto) Lymph # APTT D-Dimer Heparin Anti-Xa Level POC ABG pH POC ABG pCO2 POC ABG pO2 Potassium Chloride BUN Creatinine Glucose POC Glucose 57 L 48 L Hemoglobin A1c 8.2 H Lactic Acid Calcium Magnesium Alkaline Phosphatase Total Creatine Kinase CK-MB (CK-2) CK-MB (CK-2) Rel Index Troponin T NT-Pro-B Natriuret Pep Total Protein Albumin LDL Cholesterol Direct HDL Cholesterol Urine Creatinine Urine Total Protein 10/10/18 10/10/18 10/10/18 12:22 13:36 13:36 WBC RBC Hgb Hct MCH RDW [place] % (Auto) Eos % (Auto) Lymph # APTT D-Dimer 927.57 H Heparin Anti-Xa Level POC ABG pH 7.286 L POC ABG pCO2 47.3 H POC ABG pO2 65 L Potassium Chloride BUN Creatinine Glucose POC Glucose Hemoglobin A1c Lactic Acid 0.60 L Calcium Magnesium Alkaline Phosphatase Total Creatine Kinase CK-MB (CK-2) CK-MB (CK-2) Rel Index Troponin T NT-Pro-B Natriuret Pep Total Protein Albumin LDL Cholesterol Direct HDL Cholesterol Urine Creatinine Urine Total Protein 10/10/18 10/10/18 10/10/18 16:42 21:12 22:30 WBC RBC Hgb Hct MCH RDW [place] % (Auto) Eos % (Auto) Lymph # APTT D-Dimer Heparin Anti-Xa Level POC ABG pH POC ABG pCO2 POC ABG pO2 Potassium Chloride BUN Creatinine Glucose POC Glucose 122 H 119 H Hemoglobin A1c Lactic Acid Calcium Magnesium Alkaline Phosphatase Total Creatine Kinase CK-MB (CK-2) CK-MB (CK-2) Rel Index Troponin T NT-Pro-B Natriuret Pep Total Protein Albumin LDL Cholesterol Direct HDL Cholesterol Urine Creatinine 118.6 H Urine Total Protein 152 H 10/11/18 10/11/18 10/11/18 04:31 04:31 13:15 WBC RBC Hgb 8.7 L Hct 27.9 L MCH RDW [place] % (Auto) Eos % (Auto) Lymph # APTT D-Dimer Heparin Anti-Xa Level POC ABG pH POC ABG pCO2 POC ABG pO2 Potassium 6.6 H* 6.4 H* Chloride BUN 55 H Creatinine 2.9 H Glucose POC Glucose Hemoglobin A1c Lactic Acid Calcium 7.6 L Magnesium Alkaline Phosphatase Total Creatine Kinase CK-MB (CK-2) CK-MB (CK-2) Rel Index Troponin T NT-Pro-B Natriuret Pep Total Protein Albumin LDL Cholesterol Direct HDL Cholesterol Urine Creatinine Urine Total Protein 10/11/18 10/11/18 10/12/18 20:45 22:37 04:25 WBC RBC Hgb Hct MCH RDW [place] % (Auto) Eos % (Auto) Lymph # APTT D-Dimer Heparin Anti-Xa Level POC ABG pH POC ABG pCO2 POC ABG pO2 Potassium Chloride BUN 37 H 38 H Creatinine 2.4 H 2.3 H Glucose POC Glucose 117 H Hemoglobin A1c Lactic Acid Calcium 7.5 L 7.6 L Magnesium Alkaline Phosphatase 261 H Total Creatine Kinase CK-MB (CK-2) CK-MB (CK-2) Rel Index Troponin T NT-Pro-B Natriuret Pep Total Protein 6.2 L Albumin 3.0 L LDL Cholesterol Direct HDL Cholesterol Urine Creatinine Urine Total Protein 10/12/18 10/12/18 10/13/18 10:02 21:33 03:28 WBC RBC Hgb 7.6 L 7.7 L Hct 24.1 L 23.8 L MCH RDW [place] % (Auto) Eos % (Auto) Lymph # APTT D-Dimer Heparin Anti-Xa Level POC ABG pH POC ABG pCO2 POC ABG pO2 Potassium Chloride BUN Creatinine Glucose POC Glucose 109 H Hemoglobin A1c Lactic Acid Calcium Magnesium Alkaline Phosphatase Total Creatine Kinase CK-MB (CK-2) CK-MB (CK-2) Rel Index Troponin T NT-Pro-B Natriuret Pep Total Protein Albumin LDL Cholesterol Direct HDL Cholesterol Urine Creatinine Urine Total Protein 10/13/18 10/13/18 10/13/18 03:28 08:27 15:04 WBC RBC Hgb Hct MCH RDW [place] % (Auto) Eos % (Auto) Lymph # APTT D-Dimer Heparin Anti-Xa Level POC ABG pH POC ABG pCO2 POC ABG pO2 Potassium Chloride BUN 38 H Creatinine 1.9 H Glucose POC Glucose 136 H 160 H Hemoglobin A1c Lactic Acid Calcium 8.3 L Magnesium Alkaline Phosphatase Total Creatine Kinase CK-MB (CK-2) CK-MB (CK-2) Rel Index Troponin T NT-Pro-B Natriuret Pep Total Protein Albumin LDL Cholesterol Direct HDL Cholesterol Urine Creatinine Urine Total Protein 10/13/18 10/13/18 10/14/18 16:53 23:06 06:06 WBC RBC Hgb Hct MCH RDW [place] % (Auto) Eos % (Auto) Lymph # APTT D-Dimer Heparin Anti-Xa Level POC ABG pH POC ABG pCO2 POC ABG pO2 Potassium Chloride 107.7 H BUN 39 H Creatinine 1.8 H Glucose 116 H POC Glucose 161 H 213 H Hemoglobin A1c Lactic Acid Calcium Magnesium 2.40 H Alkaline Phosphatase Total Creatine Kinase CK-MB (CK-2) CK-MB (CK-2) Rel Index Troponin T NT-Pro-B Natriuret Pep Total Protein Albumin LDL Cholesterol Direct HDL Cholesterol Urine Creatinine Urine Total Protein 10/14/18 10/14/18 10/14/18 06:34 11:01 13:50 WBC RBC Hgb 7.8 L Hct 24.8 L MCH RDW [place] % (Auto) Eos % (Auto) Lymph # APTT D-Dimer Heparin Anti-Xa Level POC ABG pH POC ABG pCO2 POC ABG pO2 Potassium Chloride BUN Creatinine Glucose POC Glucose 118 H 67 L Hemoglobin A1c Lactic Acid Calcium Magnesium Alkaline Phosphatase Total Creatine Kinase CK-MB (CK-2) CK-MB (CK-2) Rel Index Troponin T NT-Pro-B Natriuret Pep Total Protein Albumin LDL Cholesterol Direct HDL Cholesterol Urine Creatinine Urine Total Protein Chest x-ray: report reviewed (Cardiomegaly, pulmonary edema.Moderate right pleural effusion. Right sided patchy infiltrates,Atelectasis vs pneumonia.), image reviewed Allied health notes reviewed: nursing
[2018-10-14] MEDS ORDERED: NACL 0.9 (PRIMING MACHINE ONLY DIALYSIS) MC ONE (18:26)
[2018-10-14] MEDS: COREG PO SCH (21:15)
[2018-10-14] MEDS: PRAVACHOL PO SCH (21:15)
[2018-10-14] MEDS: RisperDAL PO SCH (21:16)
[2018-10-14] MEDS: LANTUS SUB-Q SCH (23:25)
[2018-10-15] MEDS: APRESOLINE PO SCH ×2 (06:20→13:27)
[2018-10-15] MEDS: HEPARIN SUB-Q SCH ×3 (06:21→22:45)
[2018-10-15 06:29] LABS: Hematocrit 23.5 % (35.5-45.6); Hemoglobin 7.6 gm/dl (11.8-15.2)
[2018-10-15 06:52] LABS: Calcium 8.3 mg/dL (8.4-10.2)
[2018-10-15] MEDS: ASPIRIN PO SCH (11:39)
[2018-10-15] MEDS: NEURONTIN PO SCH (11:40)
[2018-10-15] MEDS: COREG PO SCH ×2 (11:41→22:41)
[2018-10-15] MEDS: SODIUM CHLORIDE FLUSH SYRINGE 10 ML IV SCH ×2 (11:41→22:40)
[2018-10-15] MEDS: PEPCID PO SCH (11:41)
[2018-10-15] MEDS: FEOSOL PO SCH (11:41)
[2018-10-15] MEDS: HumuLIN R SUB-Q SCH ×4 (11:43→22:45)
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
--- NOTE | 2018-10-15 13:32 | Progress Note ---
Assessment and Plan Patient alert, awake. Resting on room air.O2 saturation 95%. No acute respiratory distress. - Patient Problems (1) CHF (congestive heart failure) Current Visit: Yes Status: Acute Qualifiers: Heart failure type: systolic Heart failure chronicity: acute Qualified Code(s): I50.21 - Acute systolic (congestive) heart failure Plan to address problem: Management as per cardiology. (2) Chest pain Current Visit: Yes Status: Acute Plan to address problem: Management as per cardiology. (3) ACS (acute coronary syndrome) Current Visit: Yes Status: Acute Plan to address problem: Management as per cardiology. (4) ARF (acute renal failure) with tubular necrosis Current Visit: Yes Status: Acute Plan to address problem: Management as per nephrology (5) Encephalopathy Current Visit: Yes Status: Acute Plan to address problem: Management as per primary care. (6) Pleural effusion, right Current Visit: Yes Status: Acute Plan to address problem: ultrasound of chest pending. (7) Pulmonary infiltrates on CXR Current Visit: Yes Status: Acute Plan to address problem: Pulmonary infiltrates or atelectasis on the right side. Patient is on levaquin. (8) Acute respiratory failure with hypoxia and hypercapnia Current Visit: Yes Status: Acute Plan to address problem: POC ABG pH 7.286 (7.35-7.45) L 10/10/18 12:22 POC ABG pCO2 47.3 (35-45) H 10/10/18 12:22 POC ABG pO2 65 (80-105) L 10/10/18 12:22 POC ABG HCO3 22.5 10/10/18 12:22 POC ABG Total CO2 24 10/10/18 12:22 POC ABG O2 Sat 90 10/10/18 12:22 Recommend O2 2 litres via nasal canula. Brovanna/budesonide aerosol treatments q 12 hours. Albuterol/atrovent aerosol treatments q 6 hours prn for shortness of breath. Repeat ABGs PO2 77 on room air. Patient has elevated D dimer. Obtaining V/Q scan. Subjective Date of service: 10/15/18 Principal diagnosis: Severe Sepsis with Shock; Acute encephalopathy; MAXIMO; Diabe helen II; CMOP Interval history: Patient alert, awake. Resting on room air.O2 saturation 95%. No acute respiratory distress. Objective Vital Signs - 12hr 10/15/18 10/15/18 10/15/18 04:12 06:20 07:54 Temperature 98.0 F 97.4 F L Pulse Rate 69 67 66 Respiratory 18 18 Rate Blood Pressure 126/67 134/75 122/67 O2 Sat by Pulse 96 95 Oximetry Constitutional: no acute distress, alert, other (middle aged AAM, normocephalic and atraumatic with mildly increased respiratory effort) Eyes: non-icteric ENT: oropharynx moist Neck: supple, no lymphadenopathy, no JVD Effort: mildly labored Ascultation: Bilateral: diminished breath sounds, rales (bases) Percussion: Bilateral: not dull Cardiovascular: regular rate and rhythm Gastrointestinal: normoactive bowel sounds, soft, non-tender, non-distended Integumentary: rash (feet) Extremities: no cyanosis, pulses normal, no ischemia or petechiae, edema (1+) Neurologic: normal mental status, non-focal exam, pupils equal and round, motor strength normal and, other (sensory numbness to feet) Psychiatric: mood appropriate, affect normal, other (effect flat.) CBC and BMP: 10/15/18 05:39 10/15/18 05:39 ABG, PT/INR, D-dimer: ABG POC ABG pH 7.359 (7.35-7.45) 10/15/18 13:21 POC ABG pCO2 48.4 (35-45) H 10/15/18 13:21 POC ABG pO2 77 (80-105) L 10/15/18 13:21 POC ABG HCO3 27.3 10/15/18 13:21 POC ABG Total CO2 29 10/15/18 13:21 POC ABG O2 Sat 95 10/15/18 13:21 PT/INR, D-dimer PT 13.0 Sec. (12.2-14.9) 10/09/18 14:25 INR 0.94 (0.87-1.13) 10/09/18 14:25 D-Dimer 927.57 ng/mlDDU (0-234) H 10/10/18 13:36 Abnormal lab findings: Abnormal Labs 10/09/18 10/09/18 10/09/18 11:22 11:22 11:22 WBC 3.3 L RBC 3.03 L Hgb 8.4 L Hct 25.8 L MCH RDW 18.7 H Bonner % (Auto) 12.1 H Eos % (Auto) 4.6 H Lymph # 0.5 L APTT 42.8 H D-Dimer Heparin Anti-Xa Level POC ABG pH POC ABG pCO2 POC ABG pO2 Potassium 5.2 H Chloride 108.2 H BUN 49 H Creatinine 1.9 H Glucose 153 H POC Glucose Hemoglobin A1c Lactic Acid Calcium Magnesium Alkaline Phosphatase Total Creatine Kinase 481 H CK-MB (CK-2) 20.5 H CK-MB (CK-2) Rel Index 4.2 H Troponin T 0.153 H* NT-Pro-B Natriuret Pep 2963 H Total Protein Albumin LDL Cholesterol Direct 49 L HDL Cholesterol 73 H Urine Creatinine Urine Total Protein 10/09/18 10/09/18 10/09/18 13:43 14:25 14:25 WBC RBC Hgb 8.2 L Hct 26.2 L MCH RDW Bonner % (Auto) Eos % (Auto) Lymph # APTT 42.4 H D-Dimer Heparin Anti-Xa Level POC ABG pH POC ABG pCO2 POC ABG pO2 Potassium Chloride BUN Creatinine Glucose POC Glucose 167 H Hemoglobin A1c Lactic Acid Calcium Magnesium Alkaline Phosphatase Total Creatine Kinase CK-MB (CK-2) CK-MB (CK-2) Rel Index Troponin T NT-Pro-B Natriuret Pep Total Protein Albumin LDL Cholesterol Direct HDL Cholesterol Urine Creatinine Urine Total Protein 10/09/18 10/09/18 10/09/18 17:28 20:56 21:23 WBC RBC Hgb Hct MCH RDW Bonner % (Auto) Eos % (Auto) Lymph # APTT D-Dimer Heparin Anti-Xa Level 0.28 L POC ABG pH POC ABG pCO2 POC ABG pO2 Potassium Chloride BUN Creatinine Glucose POC Glucose Hemoglobin A1c Lactic Acid Calcium Magnesium Alkaline Phosphatase Total Creatine Kinase CK-MB (CK-2) CK-MB (CK-2) Rel Index Troponin T 0.136 H* 0.139 H* NT-Pro-B Natriuret Pep Total Protein Albumin LDL Cholesterol Direct HDL Cholesterol Urine Creatinine Urine Total Protein 10/10/18 10/10/18 10/10/18 00:10 05:00 05:00 WBC 3.3 L RBC 2.99 L Hgb 8.2 L Hct 25.9 L MCH 27 L RDW 19.2 H Bonner % (Auto) 13.2 H Eos % (Auto) 5.8 H Lymph # 0.5 L APTT D-Dimer Heparin Anti-Xa Level POC ABG pH POC ABG pCO2 POC ABG pO2 Potassium 5.6 H Chloride 110.8 H BUN 50 H Creatinine 2.2 H Glucose 52 L POC Glucose 60 L Hemoglobin A1c Lactic Acid Calcium 8.1 L Magnesium Alkaline Phosphatase Total Creatine Kinase CK-MB (CK-2) CK-MB (CK-2) Rel Index Troponin T NT-Pro-B Natriuret Pep Total Protein Albumin LDL Cholesterol Direct HDL Cholesterol Urine Creatinine Urine Total Protein 10/10/18 10/10/18 10/10/18 05:00 06:11 11:30 WBC RBC Hgb Hct MCH RDW Bonner % (Auto) Eos % (Auto) Lymph # APTT D-Dimer Heparin Anti-Xa Level POC ABG pH POC ABG pCO2 POC ABG pO2 Potassium Chloride BUN Creatinine Glucose POC Glucose 57 L 48 L Hemoglobin A1c 8.2 H Lactic Acid Calcium Magnesium Alkaline Phosphatase Total Creatine Kinase CK-MB (CK-2) CK-MB (CK-2) Rel Index Troponin T NT-Pro-B Natriuret Pep Total Protein Albumin LDL Cholesterol Direct HDL Cholesterol Urine Creatinine Urine Total Protein 10/10/18 10/10/18 10/10/18 12:22 13:36 13:36 WBC RBC Hgb Hct MCH RDW Bonner % (Auto) Eos % (Auto) Lymph # APTT D-Dimer 927.57 H Heparin Anti-Xa Level POC ABG pH 7.286 L POC ABG pCO2 47.3 H POC ABG pO2 65 L Potassium Chloride BUN Creatinine Glucose POC Glucose Hemoglobin A1c Lactic Acid 0.60 L Calcium Magnesium Alkaline Phosphatase Total Creatine Kinase CK-MB (CK-2) CK-MB (CK-2) Rel Index Troponin T NT-Pro-B Natriuret Pep Total Protein Albumin LDL Cholesterol Direct HDL Cholesterol Urine Creatinine Urine Total Protein 10/10/18 10/10/18 10/10/18 16:42 21:12 22:30 WBC RBC Hgb Hct MCH RDW Bonner % (Auto) Eos % (Auto) Lymph # APTT D-Dimer Heparin Anti-Xa Level POC ABG pH POC ABG pCO2 POC ABG pO2 Potassium Chloride BUN Creatinine Glucose POC Glucose 122 H 119 H Hemoglobin A1c Lactic Acid Calcium Magnesium Alkaline Phosphatase Total Creatine Kinase CK-MB (CK-2) CK-MB (CK-2) Rel Index Troponin T NT-Pro-B Natriuret Pep Total Protein Albumin LDL Cholesterol Direct HDL Cholesterol Urine Creatinine 118.6 H Urine Total Protein 152 H 10/11/18 10/11/18 10/11/18 04:31 04:31 13:15 WBC RBC Hgb 8.7 L Hct 27.9 L MCH RDW Bonner % (Auto) Eos % (Auto) Lymph # APTT D-Dimer Heparin Anti-Xa Level POC ABG pH POC ABG pCO2 POC ABG pO2 Potassium 6.6 H* 6.4 H* Chloride BUN 55 H Creatinine 2.9 H Glucose POC Glucose Hemoglobin A1c Lactic Acid Calcium 7.6 L Magnesium Alkaline Phosphatase Total Creatine Kinase CK-MB (CK-2) CK-MB (CK-2) Rel Index Troponin T NT-Pro-B Natriuret Pep Total Protein Albumin LDL Cholesterol Direct HDL Cholesterol Urine Creatinine Urine Total Protein 10/11/18 10/11/18 10/12/18 20:45 22:37 04:25 WBC RBC Hgb Hct MCH RDW Bonner % (Auto) Eos % (Auto) Lymph # APTT D-Dimer Heparin Anti-Xa Level POC ABG pH POC ABG pCO2 POC ABG pO2 Potassium Chloride BUN 37 H 38 H Creatinine 2.4 H 2.3 H Glucose POC Glucose 117 H Hemoglobin A1c Lactic Acid Calcium 7.5 L 7.6 L Magnesium Alkaline Phosphatase 261 H Total Creatine Kinase CK-MB (CK-2) CK-MB (CK-2) Rel Index Troponin T NT-Pro-B Natriuret Pep Total Protein 6.2 L Albumin 3.0 L LDL Cholesterol Direct HDL Cholesterol Urine Creatinine Urine Total Protein 10/12/18 10/12/18 10/13/18 10:02 21:33 03:28 WBC RBC Hgb 7.6 L 7.7 L Hct 24.1 L 23.8 L MCH RDW Bonner % (Auto) Eos % (Auto) Lymph # APTT D-Dimer Heparin Anti-Xa Level POC ABG pH POC ABG pCO2 POC ABG pO2 Potassium Chloride BUN Creatinine Glucose POC Glucose 109 H Hemoglobin A1c Lactic Acid Calcium Magnesium Alkaline Phosphatase Total Creatine Kinase CK-MB (CK-2) CK-MB (CK-2) Rel Index Troponin T NT-Pro-B Natriuret Pep Total Protein Albumin LDL Cholesterol Direct HDL Cholesterol Urine Creatinine Urine Total Protein 01/10/13/18 10/13/18 03:28 08:27 15:04 WBC RBC Hgb Hct MCH RDW Bonner % (Auto) Eos % (Auto) Lymph # APTT D-Dimer Heparin Anti-Xa Level POC ABG pH POC ABG pCO2 POC ABG pO2 Potassium Chloride BUN 38 H Creatinine 1.9 H Glucose POC Glucose 136 H 160 H Hemoglobin A1c Lactic Acid Calcium 8.3 L Magnesium Alkaline Phosphatase Total Creatine Kinase CK-MB (CK-2) CK-MB (CK-2) Rel Index Troponin T NT-Pro-B Natriuret Pep Total Protein Albumin LDL Cholesterol Direct HDL Cholesterol Urine Creatinine Urine Total Protein 10/13/18 10/13/18 10/14/18 16:53 23:06 06:06 WBC RBC Hgb Hct MCH RDW Bonner % (Auto) Eos % (Auto) Lymph # APTT D-Dimer Heparin Anti-Xa Level POC ABG pH POC ABG pCO2 POC ABG pO2 Potassium Chloride 107.7 H BUN 39 H Creatinine 1.8 H Glucose 116 H POC Glucose 161 H 213 H Hemoglobin A1c Lactic Acid Calcium Magnesium 2.40 H Alkaline Phosphatase Total Creatine Kinase CK-MB (CK-2) CK-MB (CK-2) Rel Index Troponin T NT-Pro-B Natriuret Pep Total Protein Albumin LDL Cholesterol Direct HDL Cholesterol Urine Creatinine Urine Total Protein 10/14/18 10/14/18 10/14/18 06:34 11:01 13:50 WBC RBC Hgb 7.8 L Hct 24.8 L MCH RDW Bonner % (Auto) Eos % (Auto) Lymph # APTT D-Dimer Heparin Anti-Xa Level POC ABG pH POC ABG pCO2 POC ABG pO2 Potassium Chloride BUN Creatinine Glucose POC Glucose 118 H 67 L Hemoglobin A1c Lactic Acid Calcium Magnesium Alkaline Phosphatase Total Creatine Kinase CK-MB (CK-2) CK-MB (CK-2) Rel Index Troponin T NT-Pro-B Natriuret Pep Total Protein Albumin LDL Cholesterol Direct HDL Cholesterol Urine Creatinine Urine Total Protein 10/14/18 10/15/18 10/15/18 21:37 05:39 05:39 WBC RBC Hgb 7.6 L Hct 23.5 L MCH RDW Bonner % (Auto) Eos % (Auto) Lymph # APTT D-Dimer Heparin Anti-Xa Level POC ABG pH POC ABG pCO2 POC ABG pO2 Potassium Chloride BUN 45 H Creatinine 2.1 H Glucose 59 L POC Glucose 125 H Hemoglobin A1c Lactic Acid Calcium 8.3 L Magnesium Alkaline Phosphatase Total Creatine Kinase CK-MB (CK-2) CK-MB (CK-2) Rel Index Troponin T NT-Pro-B Natriuret Pep Total Protein Albumin LDL Cholesterol Direct HDL Cholesterol Urine Creatinine Urine Total Protein 10/15/18 10/15/18 10/15/18 06:27 07:48 13:21 WBC RBC Hgb Hct MCH RDW Bonner % (Auto) Eos % (Auto) Lymph # APTT D-Dimer Heparin Anti-Xa Level POC ABG pH POC ABG pCO2 48.4 H POC ABG pO2 77 L Potassium Chloride BUN Creatinine Glucose POC Glucose 46 L 65 L Hemoglobin A1c Lactic Acid Calcium Magnesium Alkaline Phosphatase Total Creatine Kinase CK-MB (CK-2) CK-MB (CK-2) Rel Index Troponin T NT-Pro-B Natriuret Pep Total Protein Albumin LDL Cholesterol Direct HDL Cholesterol Urine Creatinine Urine Total Protein Allied health notes reviewed: nursing
--- NOTE | 2018-10-15 13:56 | Progress Note ---
Assessment and Plan 1. Acute kidney injury: MAXIMO likely Vasomotor / hemodynamic mediated in the setting of hypotension. Patient received hemodialysis on 10/11/2018 for continued decline in the Renal function and hyperkalemia. Renal function appears to be plateaued. 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 2. FEN: Volume overload, Isolated UF today. 3. CHF exacerbation: Was on Dobutamine drip. 4. Hypotension: Stop Hydralazine. 5. Anemia: Monitor. Subjective Date of service: 10/15/18 Principal diagnosis: Severe Sepsis with Shock; Acute encephalopathy; MAXIMO; Diabetes II; CMOP Interval history: Patient was seen and examined at the bedside. Objective - Vital Signs Vital signs: Vital Signs - 12hr 10/15/18 10/15/18 10/15/18 04:12 06:20 07:54 Temperature 98.0 F 97.4 F L Pulse Rate 69 67 66 Respiratory 18 18 Rate Blood Pressure 126/67 134/75 122/67 O2 Sat by Pulse 96 95 Oximetry - General Appearance General appearance: well-developed, well-nourished, appears stated age, obese, other (not in ) EENT: ATNC, PERRL, hearing intact Neck: supple Respiratory: Present: Rales Cardiology: regular, S1S2, no murmurs Gastrointestinal: normoactive bowel sounds, no tenderness, no distended Integumentary: no rash Neurologic: other (able to move extremities, tremors noted, mild confusion) Musculoskeletal: other (bilateral LE 2+ edema, right groin dialysis catheter) - Lab 10/15/18 05:39 10/15/18 05:39 Most recent lab results Calcium 8.3 mg/dL (8.4-10.2) L 10/15/18 05:39 Phosphorus 4.40 mg/dL (2.5-4.5) 10/14/18 06:06 Magnesium 2.40 mg/dL (1.7-2.3) H 10/14/18 06:06 Urine Creatinine 118.6 mg/dL (0.1-20.0) H 10/10/18 22:30 Urine Sodium 35 mmol/L 10/10/18 22:30 Urine Total Protein 152 mg/dL (5-11.8) H 10/10/18 22:30 Medications & Allergies - Medications Allergies/Adverse Reactions: Allergies No Known Allergies Allergy (Unverified 10/09/18 10:44) Home Medications: Home Medications Medication Instructions Recorded Confirmed Last Taken Type Carvedilol [Coreg] 3.125 mg PO BID 10/09/18 10/09/18 Unknown History Divalprokevin Duran [Darby DURAN] 500 mg PO BID 10/09/18 10/09/18 Unknown History Ferrous Sulfate [Feosol] 325 mg PO QDAY 10/09/18 10/09/18 Unknown History Furosemide [Lasix] 80 mg PO DAILY 10/09/18 10/09/18 Unknown History Gabapentin [Neurontin] 300 mg PO Q8HR 10/09/18 10/09/18 Unknown History ISOSORBIDE MONOnitrate [Imdur ER] 30 mg PO DAILY 10/09/18 10/09/18 Unknown History Insulin Glargine,Hum.rec.anlog 40 units SQ QHS 10/09/18 10/09/18 Unknown History [Lantus] Magnesium Oxide [Mag-Ox] 400 mg PO DAILY 10/09/18 10/09/18 Unknown History Simvastatin [Zocor TAB] 20 mg PO QHS 10/09/18 10/09/18 Unknown History Sulfamethoxazole/Trimethoprim 1 each PO BID 10/09/18 10/09/18 Unknown History [Bactrim DS TAB] glipiZIDE [Glipizide] 10 mg PO DAILY 10/09/18 10/09/18 Unknown History hydrALAZINE [Apresoline TAB] 100 mg PO BID 10/09/18 10/09/18 Unknown History risperiDONE [RisperDAL] 1 mg PO QHS 10/09/18 10/09/18 Unknown History Active Medications: Generic Name Dose Route Start Last Admin Trade Name Freq PRN Reason Stop Dose Admin Albumin Human 25 gm 10/11/18 09:35 Alburx 25% (Albumin) IV JUDE PRN Hypotension Aspirin 325 mg 10/10/18 10:00 10/15/18 11:39 Aspirin PO 325 mg QDAY JAMIL Administration Carvedilol 6.25 mg 10/14/18 22:00 10/15/18 11:41 Coreg PO 6.25 mg BID JAMIL Administration Dextrose 50 ml 10/10/18 11:03 10/10/18 11:31 D50w (25gm) Syringe IV 50 ml PRN PRN Administration Hypoglycemia Divalproex Sodium 500 mg 10/09/18 22:00 10/15/18 11:[address] PO 500 mg BID JAMIL Administration Famotidine 20 mg 10/10/18 12:00 10/15/18 11:41 Pepcid PO 20 mg DAILY JAMIL Administration Ferrous Sulfate 325 mg 10/10/18 10:00 10/15/18 11:41 Feosol PO 325 mg QDAY JAMIL Administration Gabapentin 300 mg 10/15/18 10:00 10/15/18 11:40 Neurontin PO 300 mg DAILY JAMIL Administration Heparin Sodium (Porcine) 5,000 unit 10/11/18 15:00 10/15/18 13:27 Heparin SUB-Q 5,000 unit Q8HR JAMIL Administration Hydralazine HCl 50 mg 10/13/18 14:00 10/15/18 13:27 Apresoline PO 50 mg Q8HR JAMIL Administration Hydralazine HCl 20 mg 10/13/18 18:43 10/13/18 20:00 Apresoline IV 20 mg Q4HR PRN Administration Increased Blood Pressure Sodium Chloride 100 mls @ 999 mls/hr 10/14/18 11:00 Nacl 0.9% IV JUDE PRN Hypotension Insulin Human Regular 0 units 10/10/18 11:30 10/15/18 13:13 Humulin R SUB-Q Not Given ACHS [facility] Protocol Levofloxacin 500 mg 10/12/18 10:00 10/14/18 09:45 Levaquin PO 10/18/18 10:01 500 mg Q48HR JAMIL Administration Pravastatin Sodium 40 mg 10/09/18 22:00 10/14/18 21:15 Pravachol PO 40 mg QHS JAMIL Administration Risperidone 1 mg 10/09/18 22:00 10/14/18 21:16 Risperdal PO 1 mg QHS JAMIL Administration Sodium Chloride 10 ml 10/09/18 13:00 10/15/18 11:41 Sodium Chloride Flush Syringe 10 Ml IV 10 ml BID JAMIL Administration Sodium Chloride 10 ml 10/09/18 13:00 Sodium Chloride Flush Syringe 10 Ml IV PRN PRN LINE FLUSH
[2018-10-15] MEDS ORDERED: NACL 0.9% 100 ML IV PRN (14:16)
[2018-10-15] MEDS ORDERED: NACL 0.9 (PRIMING MACHINE ONLY DIALYSIS) MC ONE (18:29)
--- NOTE | 2018-10-15 19:00 | Progress Note ---
Assessment and Plan Assessment and plan: --Altered mental status/Acute encephalopathy ; present on admission head CT with no acute process, slightly improved continue current management --MAXIMO / hyperkalemia - consulted nephro, s/p HD on 10/11/18 for declining renal function, cont to monitor renal function --Hypotension - required vasopressor support following admission, now weaned off. ordered dobutamin during HD --NSTEMI type II- s/p heparin drip, obtained 2d echo, cardiology following --Acute on chronic systolic CHF: EF 35-40%, cardiology consulted, cont aspirin/statin, monitor daily wt, ins/os, restrict fluid --Sinus bradycardia - avoid BB --Anemia, monitor H/H, likley from CD, will r/o GI bleed --HTN, hold antihypertensives --DM, cont SSI, Accu-Cheks, ADA diet, insulin as needed --HLP, cont statin -- h/o psych disorder, supportive care --Extensive scrotal swelling, order scrotal US --Disposition: when renal function stable and scrotal swelling improves Plan of care is reviewed for the patient Possible discharge in 1-2 days if stable History Interval history: Patient seen and examined medical records reviewed Patient complains of mild shortness of breath Alert and awake responding to simple questions appropriately Vital signs reviewed Hospitalist Physical - Constitutional Vitals: Temp Pulse Resp BP Pulse Ox 98.0 F 70 18 121/65 91 10/15/18 17:15 10/15/18 17:15 10/15/18 17:15 10/15/18 17:15 10/15/18 13:30 General appearance: Present: no acute distress, well-nourished - EENT Eyes: Present: PERRL, EOM intact - Neck Neck: Present: supple, normal ROM - Respiratory Respiratory effort: normal Respiratory: bilateral: diminished, rales, negative: rhonchi, wheezing - Cardiovascular Rhythm: regular Heart Sounds: Present: S1 & S2 - Extremities Extremities: no ischemia Extremity abnormal: edema - Abdominal General gastrointestinal: soft, non-tender, non-distended, normal bowel sounds - Integumentary Integumentary: Present: clear, warm - Psychiatric Psychiatric: appropriate mood/affect - Neurologic Neurologic: moves all extremities - Additional findings Additional findings: Scrotal Swelling Results - Labs CBC & Chem 7: 10/15/18 05:39 10/15/18 05:39 Labs: Laboratory Last Values WBC 3.3 K/mm3 (4.5-11.0) L 10/10/18 05:00 RBC 2.99 M/mm3 (3.65-5.03) L 10/10/18 05:00 Hgb 7.6 gm/dl (11.8-15.2) L 10/15/18 05:39 Hct 23.5 % (35.5-45.6) L 10/15/18 05:39 MCV 87 fl (84-94) 10/10/18 05:00 MCH 27 pg (28-32) L 10/10/18 05:00 MCHC 32 % (32-34) 10/10/18 05:00 RDW 19.2 % (13.2-15.2) H 10/10/18 05:00 Plt Count 227 K/mm3 (140-440) 10/15/18 05:39 Lymph % (Auto) 16.4 % (13.4-35.0) 10/10/18 05:00 Adams % (Auto) 13.2 % (0.0-7.3) H 10/10/18 05:00 Eos % (Auto) 5.8 % (0.0-4.3) H 10/10/18 05:00 Baso % (Auto) 0.6 % (0.0-1.8) 10/10/18 05:00 Lymph # 0.5 K/mm3 (1.2-5.4) L 10/10/18 05:00 Adams # 0.4 K/mm3 (0.0-0.8) 10/10/18 05:00 Eos # 0.2 K/mm3 (0.0-0.4) 10/10/18 05:00 Baso # 0.0 K/mm3 (0.0-0.1) 10/10/18 05:00 Seg Neutrophils % 64.0 % (40.0-70.0) 10/10/18 05:00 Seg Neutrophils # 2.1 K/mm3 (1.8-7.7) 10/10/18 05:00 PT 13.0 Sec. (12.2-14.9) 10/09/18 14:25 INR 0.94 (0.87-1.13) 10/09/18 14:25 APTT 42.4 Sec. (24.2-36.6) H 10/09/18 14:25 D-Dimer 927.57 ng/mlDDU (0-234) H 10/10/18 13:36 Heparin Anti-Xa Level 0.49 U.I./ml (0.3-0.7) 10/11/18 04:31 POC ABG pH 7.359 (7.35-7.45) 10/15/18 13:21 POC ABG pCO2 48.4 (35-45) H 10/15/18 13:21 POC ABG pO2 77 (80-105) L 10/15/18 13:21 POC ABG HCO3 27.3 10/15/18 13:21 POC ABG Total CO2 29 10/15/18 13:21 POC ABG O2 Sat 95 10/15/18 13:21 POC ABG Base Excess 2 10/15/18 13:21 FiO2 21 % 10/15/18 13:21 Sodium 142 mmol/L (137-145) 10/15/18 05:39 Potassium 4.4 mmol/L (3.6-5.0) 10/15/18 05:39 Chloride 105.5 mmol/L (98-107) 10/15/18 05:39 Carbon Dioxide 27 mmol/L (22-30) 10/15/18 05:39 Anion Gap 14 mmol/L 10/15/18 05:39 BUN 45 mg/dL (9-20) H 10/15/18 05:39 Creatinine 2.1 mg/dL (0.8-1.5) H 10/15/18 05:39 Estimated GFR 41 ml/min 10/15/18 05:39 BUN/Creatinine Ratio 21 % 10/15/18 05:39 Glucose 59 mg/dL (75-100) L 10/15/18 05:39 POC Glucose 106 (70-105) H 10/15/18 13:24 Hemoglobin A1c 8.2 % (4-6) H 10/10/18 05:00 Lactic Acid 0.60 mmol/L (0.7-2.0) L 10/10/18 13:36 Calcium 8.3 mg/dL (8.4-10.2) L 10/15/18 05:39 Phosphorus 4.40 mg/dL (2.5-4.5) 10/14/18 06:06 Magnesium 2.40 mg/dL (1.7-2.3) H 10/14/18 06:06 Total Bilirubin < 0.20 mg/dL (0.1-1.2) 10/11/18 20:45 AST 31 units/L (5-40) 10/11/18 20:45 ALT 56 units/L (7-56) 10/11/18 20:45 Alkaline Phosphatase 261 units/L (35-129) H 10/11/18 20:45 Total Creatine Kinase 481 units/L (55-170) H 10/09/18 11:22 CK-MB (CK-2) 20.5 ng/mL (0.0-4.0) H 10/09/18 11:22 CK-MB (CK-2) Rel Index 4.2 (0-4) H 10/09/18 11:22 Troponin T 0.139 ng/mL (0.00-0.029) H* 10/09/18 20:56 C-Reactive Protein 0.90 mg/dL (0.00-1.30) 10/10/18 13:36 NT-Pro-B Natriuret Pep 2963 pg/mL (0-450) H 10/09/18 11:22 Total Protein 6.2 g/dL (6.3-8.2) L 10/11/18 20:45 Albumin 3.0 g/dL (3.9-5) L 10/11/18 20:45 Albumin/Globulin Ratio 0.9 % 10/11/18 20:45 Triglycerides 24 mg/dL (2-149) 10/09/18 11:22 Cholesterol 115 mg/dL (50-199) 10/09/18 11:22 LDL Cholesterol Direct 49 mg/dL (50-130) L 10/09/18 11:22 HDL Cholesterol 73 mg/dL (40-59) H 10/09/18 11:22 Cholesterol/HDL Ratio 1.57 % 10/09/18 11:22 Urine Color Tamie (Yellow) 10/10/18 22:30 Urine Turbidity Clear (Clear) 10/10/18 22:30 Urine pH 5.0 (5.0-7.0) 10/10/18 22:30 Ur Specific [place] 1.016 (1.003-1.030) 10/10/18 22:30 Urine Protein 100 mg/dl mg/dL (Negative) 10/10/18 22:30 Urine Glucose (UA) 50 mg/dL (Negative) 10/10/18 22:30 Urine Ketones Neg mg/dL (Negative) 10/10/18 22:30 Urine Blood Neg (Negative) 10/10/18 22:30 Urine Nitrite Neg (Negative) 10/10/18 22:30 Urine Bilirubin Neg (Negative) 10/10/18 22:30 Urine Urobilinogen 4.0 mg/dL (<2.0) 10/10/18 22:30 Ur Leukocyte Esterase Tr (Negative) 10/10/18 22:30 Urine WBC (Auto) 2.0 /HPF (0.0-6.0) 10/10/18 22:30 Urine RBC (Auto) 5.0 /HPF (0.0-6.0) 10/10/18 22:30 U Epithel Cells (Auto) < 1.0 /HPF (0-13.0) 10/10/18 22:30 Urine Bacteria (Auto) 1+ /HPF (Negative) 10/10/18 22:30 Hyaline Casts 1 /LPF 10/10/18 22:30 Urine Mucus Few /HPF 10/10/18 22:30 Urine Creatinine 118.6 mg/dL (0.1-20.0) H 10/10/18 22:30 Protein/Creatinin Ratio 1.28 10/10/18 22:30 Urine Sodium 35 mmol/L 10/10/18 22:30 Urine Total Protein 152 mg/dL (5-11.8) H 10/10/18 22:30 Hepatitis A IgM Ab Non-reactive (NonReactive) 10/11/18 13:24 Hep Bs Antigen Non-reactive (Negative) 10/11/18 13:24 Hep B Core IgM Ab Non-reactive (NonReactive) 10/11/18 13:24 Hepatitis C Antibody Non-reactive (NonReactive) 10/11/18 13:24
--- NOTE | 2018-10-15 22:23 | Ultrasound Report ---
FINAL REPORT PROCEDURE: US TESTICULAR DOPPLER COMP TECHNIQUE: Real-time powell-scale and color flow Doppler sonography in multiple planes of the scrotum, testicles, and epididymes was performed. Velocity spectral waveform analysis Doppler imaging of the arterial inflow and venous outflow of the testicles was performed with image documentation. CPT 68076 and 83101 HISTORY: scrotal swelling COMPARISON: No prior studies are available for comparison. FINDINGS: RIGHT TESTICLE: Size: 4.0 x 2.3 x 2.3 cm . Appearance: Normal size and echotexture . Arterial blood flow: Normal spectral waveforms, flow velocities and color flow images.. Venous blood flow: Normal spectral waveforms and color flow images. Right epididymis: Normal size and echotexture . Hydrocele: None . LEFT TESTICLE Size: 4.0 x 2.5 x 2.6 cm . Appearance: Normal size and echotexture . Arterial blood flow: Normal spectral waveforms, flow velocities and color flow images.. Venous blood flow: Normal spectral waveforms and color flow images. Leftepididymis: Normal size and echotexture . Hydrocele: None . There is diffuse thickening of the scrotal skin and subcutaneous tissues. IMPRESSION: Diffuse thickening of the scrotal skin and subcutaneous tissues. Testicles and epididymis are normal
--- NOTE | 2018-10-15 22:25 | Ultrasound Report ---
FINAL REPORT PROCEDURE: US CHEST TECHNIQUE: Real-time sonography in multiple planes of the chest was performed with image documentati on. CPT 34132 HISTORY: pleural effusion COMPARISON: No prior studies are available for comparison. FINDINGS: RIGHT chest: Moderate degree right pleural effusion is noted LEFT chest: Moderate to severe degree left pleural effusion is noted IMPRESSION: Bilateral pleural effusions
[2018-10-15] MEDS: PRAVACHOL PO SCH (22:41)
[2018-10-15] MEDS: RisperDAL PO SCH (22:41)
[2018-10-16] MEDS: HEPARIN SUB-Q SCH ×3 (06:36→22:28)
[2018-10-16] MEDS: D50W (25GM) Syringe IV PRN (07:14)
[2018-10-16 07:38] LABS: Calcium 8.7 mg/dL (8.4-10.2)
[2018-10-16] MEDS: HumuLIN R SUB-Q SCH ×4 (08:36→22:31)
--- NOTE | 2018-10-16 09:31 | Nuclear Medicine Report ---
VENTILATION PERFUSION SCAN INDICATION: Elevated d-dimer. Pleural effusions. COMPARISON: None similar. FINDINGS: VQ scan performed in anterior, posterior, lateral and oblique projections. 5 mCi of technetium 99m MAA was used for the perfusion assessment while 15 millicuries of Xenon 133 was utilized for the ventilation portion of the study. Ventilation images demonstrate asymmetric pulmonary radiotracer distribution, more intense on the left than right and poor/absent towards the right lung base. The perfusion is also asymmetric, though correlating with the ventilation and diminished on the right, more so towards the base. Accompanying chest radiograph from 8:50 AM again suggests cardiomegaly and right mid to lower lung haziness/pleural effusion with right more than left hemidiaphragmatic obscuration. CONCLUSION: Intermediate probability exam (triple match) for pulmonary embolism by PIOPED criteria. Thank you for the opportunity to participate in this patient's care.
--- NOTE | 2018-10-16 10:33 | Progress Note ---
Assessment and Plan Patient alert, awake. Resting on room air.O2 saturation 96%. No acute respiratory distress. Patients ultrasound of chest reported bilateral pleural effusionss and more on left side.Consider thoracentesis. Patients V/Q scan reported intermediate probability for PE. Venous doppler studies of legs reported no DVT. Patient scheduled for thoracentesis to be done by the interventional radiology. - Patient Problems (1) CHF (congestive heart failure) Current Visit: Yes Status: Acute Qualifiers: Heart failure type: systolic Heart failure chronicity: acute Qualified Code(s): I50.21 - Acute systolic (congestive) heart failure Plan to address problem: Management as per cardiology. (2) Chest pain Current Visit: Yes Status: Acute Plan to address problem: Management as per cardiology. (3) ACS (acute coronary syndrome) Current Visit: Yes Status: Acute Plan to address problem: Management as per cardiology. (4) ARF (acute renal failure) with tubular necrosis Current Visit: Yes Status: Acute Plan to address problem: Management as per nephrology (5) Encephalopathy Current Visit: Yes Status: Acute Plan to address problem: Management as per primary care. (6) Pleural effusion, right Current Visit: Yes Status: Acute Plan to address problem: ultrasound of chest reported bilateral pleural effusions. Patient scheduled for thoracentesis to be done by the interventional radiology. (7) Pulmonary infiltrates on CXR Current Visit: Yes Status: Acute Plan to address problem: Pulmonary infiltrates or atelectasis on the right side. Patient is on levaquin. (8) Acute respiratory failure with hypoxia and hypercapnia Current Visit: Yes Status: Acute Plan to address problem: POC ABG pH 7.286 (7.35-7.45) L 10/10/18 12:22 POC ABG pCO2 47.3 (35-45) H 10/10/18 12:22 POC ABG pO2 65 (80-105) L 10/10/18 12:22 POC ABG HCO3 22.5 10/10/18 12:22 POC ABG Total CO2 24 10/10/18 12:22 POC ABG O2 Sat 90 10/10/18 12:22 Recommend O2 2 litres via nasal canula. Brovanna/budesonide aerosol treatments q 12 hours. Albuterol/atrovent aerosol treatments q 6 hours prn for shortness of breath. Repeat ABGs PO2 77 on room air. Subjective Date of service: 10/16/18 Principal diagnosis: Severe Sepsis with Shock; Acute encephalopathy; MAXIMO; Diabetes II; CMOP Interval history: Patient alert, awake. Resting on room air.O2 saturation 96%. No acute respiratory distress. Patients ultrasound of chest reported bilateral pleural effusionss and more on left side.Consider thoracentesis. Patients V/Q scan reported intermediate probability for PE. Venous doppler studies of legs reported No DVT. Patient scheduled for thoracentesis to be done by the interventional radiology. Objective Vital Signs - 12hr 10/15/18 10/16/18 10/16/18 22:41 00:00 00:06 Temperature 97.8 F Pulse Rate 71 71 71 Respiratory 16 Rate Blood Pressure 128/68 O2 Sat by Pulse 97 Oximetry 10/16/18 05:13 Temperature Pulse Rate 68 Respiratory 17 Rate Blood Pressure 135/76 O2 Sat by Pulse 96 Oximetry Constitutional: no acute distress, alert, other (middle aged AAM, normocephalic and atraumatic with mildly increased respiratory effort) Eyes: non-icteric ENT: oropharynx moist Neck: supple, no lymphadenopathy, no JVD Effort: mildly labored Ascultation: Bilateral: diminished breath sounds, rales (bases) Percussion: Bilateral: not dull Cardiovascular: regular rate and rhythm Gastrointestinal: normoactive bowel sounds, soft, non-tender, non-distended Integumentary: rash (feet) Extremities: no cyanosis, pulses normal, no ischemia or petechiae, edema (1+) Neurologic: normal mental status, non-focal exam, pupils equal and round, motor strength normal and, other (sensory numbness to feet) Psychiatric: mood appropriate, affect normal, other (effect flat.) CBC and BMP: 10/15/18 05:39 10/16/18 06:25 ABG, PT/INR, D-dimer: ABG POC ABG pH 7.359 (7.35-7.45) 10/15/18 13:21 POC ABG pCO2 48.4 (35-45) H 10/15/18 13:21 POC ABG pO2 77 (80-105) L 10/15/18 13:21 POC ABG HCO3 27.3 10/15/18 13:21 POC ABG Total CO2 29 10/15/18 13:21 POC ABG O2 Sat 95 10/15/18 13:21 PT/INR, D-dimer PT 13.0 Sec. (12.2-14.9) 10/09/18 14:25 INR 0.94 (0.87-1.13) 10/09/18 14:25 D-Dimer 927.57 ng/mlDDU (0-234) H 10/10/18 13:36 Abnormal lab findings: Abnormal Labs 10/09/18 10/09/18 10/09/18 11:22 11:22 11:22 WBC 3.3 L RBC 3.03 L Hgb 8.4 L Hct 25.8 L MCH RDW 18.7 H Sawyer % (Auto) 12.1 H Eos % (Auto) 4.6 H Lymph # 0.5 L APTT 42.8 H D-Dimer Heparin Anti-Xa Level POC ABG pH POC ABG pCO2 POC ABG pO2 Potassium 5.2 H Chloride 108.2 H BUN 49 H Creatinine 1.9 H Glucose 153 H POC Glucose Hemoglobin A1c Lactic Acid Calcium Magnesium Alkaline Phosphatase Total Creatine Kinase 481 H CK-MB (CK-2) 20.5 H CK-MB (CK-2) Rel Index 4.2 H Troponin T 0.153 H* NT-Pro-B Natriuret Pep 2963 H Total Protein Albumin LDL Cholesterol Direct 49 L HDL Cholesterol 73 H Urine Creatinine Urine Total Protein 10/09/18 10/09/18 10/09/18 13:43 14:25 14:25 WBC RBC Hgb 8.2 L Hct 26.2 L MCH RDW Sawyer % (Auto) Eos % (Auto) Lymph # APTT 42.4 H D-Dimer Heparin Anti-Xa Level POC ABG pH POC ABG pCO2 POC ABG pO2 Potassium Chloride BUN Creatinine Glucose POC Glucose 167 H Hemoglobin A1c Lactic Acid Calcium Magnesium Alkaline Phosphatase Total Creatine Kinase CK-MB (CK-2) CK-MB (CK-2) Rel Index Troponin T NT-Pro-B Natriuret Pep Total Protein Albumin LDL Cholesterol Direct HDL Cholesterol Urine Creatinine Urine Total Protein 10/09/18 10/09/18 10/09/18 17:28 20:56 21:23 WBC RBC Hgb Hct MCH RDW Sawyer % (Auto) Eos % (Auto) Lymph # APTT D-Dimer Heparin Anti-Xa Level 0.28 L POC ABG pH POC ABG pCO2 POC ABG pO2 Potassium Chloride BUN Creatinine Glucose POC Glucose Hemoglobin A1c Lactic Acid Calcium Magnesium Alkaline Phosphatase Total Creatine Kinase CK-MB (CK-2) CK-MB (CK-2) Rel Index Troponin T 0.136 H* 0.139 H* NT-Pro-B Natriuret Pep Total Protein Albumin LDL Cholesterol Direct HDL Cholesterol Urine Creatinine Urine Total Protein 10/10/18 10/10/18 10/10/18 00:10 05:00 05:00 WBC 3.3 L RBC 2.99 L Hgb 8.2 L Hct 25.9 L MCH 27 L RDW 19.2 H Sawyer % (Auto) 13.2 H Eos % (Auto) 5.8 H Lymph # 0.5 L APTT D-Dimer Heparin Anti-Xa Level POC ABG pH POC ABG pCO2 POC ABG pO2 Potassium 5.6 H Chloride 110.8 H BUN 50 H Creatinine 2.2 H Glucose 52 L POC Glucose 60 L Hemoglobin A1c Lactic Acid Calcium 8.1 L Magnesium Alkaline Phosphatase Total Creatine Kinase CK-MB (CK-2) CK-MB (CK-2) Rel Index Troponin T NT-Pro-B Natriuret Pep Total Protein Albumin LDL Cholesterol Direct HDL Cholesterol Urine Creatinine Urine Total Protein 10/10/18 10/10/18 10/10/18 05:00 06:11 11:30 WBC RBC Hgb Hct MCH RDW Sawyer % (Auto) Eos % (Auto) Lymph # APTT D-Dimer Heparin Anti-Xa Level POC ABG pH POC ABG pCO2 POC ABG pO2 Potassium Chloride BUN Creatinine Glucose POC Glucose 57 L 48 L Hemoglobin A1c 8.2 H Lactic Acid Calcium Magnesium Alkaline Phosphatase Total Creatine Kinase CK-MB (CK-2) CK-MB (CK-2) Rel Index Troponin T NT-Pro-B Natriuret Pep Total Protein Albumin LDL Cholesterol Direct HDL Cholesterol Urine Creatinine Urine Total Protein 10/10/18 10/10/18 10/10/18 12:22 13:36 13:36 WBC RBC Hgb Hct MCH RDW Sawyer % (Auto) Eos % (Auto) Lymph # APTT D-Dimer 927.57 H Heparin Anti-Xa Level POC ABG pH 7.286 L POC ABG pCO2 47.3 H POC ABG pO2 65 L Potassium Chloride BUN Creatinine Glucose POC Glucose Hemoglobin A1c Lactic Acid 0.60 L Calcium Magnesium Alkaline Phosphatase Total Creatine Kinase CK-MB (CK-2) CK-MB (CK-2) Rel Index Troponin T NT-Pro-B Natriuret Pep Total Protein Albumin LDL Cholesterol Direct HDL Cholesterol Urine Creatinine Urine Total Protein 10/10/18 10/10/18 10/10/18 16:42 21:12 22:30 WBC RBC Hgb Hct MCH RDW Sawyer % (Auto) Eos % (Auto) Lymph # APTT D-Dimer Heparin Anti-Xa Level POC ABG pH POC ABG pCO2 POC ABG pO2 Potassium Chloride BUN Creatinine Glucose POC Glucose 122 H 119 H Hemoglobin A1c Lactic Acid Calcium Magnesium Alkaline Phosphatase Total Creatine Kinase CK-MB (CK-2) CK-MB (CK-2) Rel Index Troponin T NT-Pro-B Natriuret Pep Total Protein Albumin LDL Cholesterol Direct HDL Cholesterol Urine Creatinine 118.6 H Urine Total Protein 152 H 10/11/18 10/11/18 10/11/18 04:31 04:31 13:15 WBC RBC Hgb 8.7 L Hct 27.9 L MCH RDW Sawyer % (Auto) Eos % (Auto) Lymph # APTT D-Dimer Heparin Anti-Xa Level POC ABG pH POC ABG pCO2 POC ABG pO2 Potassium 6.6 H* 6.4 H* Chloride BUN 55 H Creatinine 2.9 H Glucose POC Glucose Hemoglobin A1c Lactic Acid Calcium 7.6 L Magnesium Alkaline Phosphatase Total Creatine Kinase CK-MB (CK-2) CK-MB (CK-2) Rel Index Troponin T NT-Pro-B Natriuret Pep Total Protein Albumin LDL Cholesterol Direct HDL Cholesterol Urine Creatinine Urine Total Protein 10/11/18 10/11/18 10/12/18 20:45 22:37 04:25 WBC RBC Hgb Hct MCH RDW Sawyer % (Auto) Eos % (Auto) Lymph # APTT D-Dimer Heparin Anti-Xa Level POC ABG pH POC ABG pCO2 POC ABG pO2 Potassium Chloride BUN 37 H 38 H Creatinine 2.4 H 2.3 H Glucose POC Glucose 117 H Hemoglobin A1c Lactic Acid Calcium 7.5 L 7.6 L Magnesium Alkaline Phosphatase 261 H Total Creatine Kinase CK-MB (CK-2) CK-MB (CK-2) Rel Index Troponin T NT-Pro-B Natriuret Pep Total Protein 6.2 L Albumin 3.0 L LDL Cholesterol Direct HDL Cholesterol Urine Creatinine Urine Total Protein 10/12/18 10/12/18 10/13/18 10:02 21:33 03:28 WBC RBC Hgb 7.6 L 7.7 L Hct 24.1 L 23.8 L MCH RDW Sawyer % (Auto) Eos % (Auto) Lymph # APTT D-Dimer Heparin Anti-Xa Level POC ABG pH POC ABG pCO2 POC ABG pO2 Potassium Chloride BUN Creatinine Glucose POC Glucose 109 H Hemoglobin A1c Lactic Acid Calcium Magnesium Alkaline Phosphatase Total Creatine Kinase CK-MB (CK-2) CK-MB (CK-2) Rel Index Troponin T NT-Pro-B Natriuret Pep Total Protein Albumin LDL Cholesterol Direct HDL Cholesterol Urine Creatinine Urine Total Protein 10/13/18 10/13/18 10/13/18 03:28 08:27 15:04 WBC RBC Hgb Hct MCH RDW Sawyer % (Auto) Eos % (Auto) Lymph # APTT D-Dimer Heparin Anti-Xa Level POC ABG pH POC ABG pCO2 POC ABG pO2 Potassium Chloride BUN 38 H Creatinine 1.9 H Glucose POC Glucose 136 H 160 H Hemoglobin A1c Lactic Acid Calcium 8.3 L Magnesium Alkaline Phosphatase Total Creatine Kinase CK-MB (CK-2) CK-MB (CK-2) Rel Index Troponin T NT-Pro-B Natriuret Pep Total Protein Albumin LDL Cholesterol Direct HDL Cholesterol Urine Creatinine Urine Total Protein 10/13/18 10/13/18 10/14/18 16:53 23:06 06:06 WBC RBC Hgb Hct MCH RDW Sawyer % (Auto) Eos % (Auto) Lymph # APTT D-Dimer Heparin Anti-Xa Level POC ABG pH POC ABG pCO2 POC ABG pO2 Potassium Chloride 107.7 H BUN 39 H Creatinine 1.8 H Glucose 116 H POC Glucose 161 H 213 H Hemoglobin A1c Lactic Acid Calcium Magnesium 2.40 H Alkaline Phosphatase Total Creatine Kinase CK-MB (CK-2) CK-MB (CK-2) Rel Index Troponin T NT-Pro-B Natriuret Pep Total Protein Albumin LDL Cholesterol Direct HDL Cholesterol Urine Creatinine Urine Total Protein 10/14/18 10/14/18 10/14/18 06:34 11:01 13:50 WBC RBC Hgb 7.8 L Hct 24.8 L MCH RDW Sawyer % (Auto) Eos % (Auto) Lymph # APTT D-Dimer Heparin Anti-Xa Level POC ABG pH POC ABG pCO2 POC ABG pO2 Potassium Chloride BUN Creatinine Glucose POC Glucose 118 H 67 L Hemoglobin A1c Lactic Acid Calcium Magnesium Alkaline Phosphatase Total Creatine Kinase CK-MB (CK-2) CK-MB (CK-2) Rel Index Troponin T NT-Pro-B Natriuret Pep Total Protein Albumin LDL Cholesterol Direct HDL Cholesterol Urine Creatinine Urine Total Protein 10/14/18 10/15/18 10/15/18 21:37 05:39 05:39 WBC RBC Hgb 7.6 L Hct 23.5 L MCH RDW Sawyer % (Auto) Eos % (Auto) Lymph # APTT D-Dimer Heparin Anti-Xa Level POC ABG pH POC ABG pCO2 POC ABG pO2 Potassium Chloride BUN 45 H Creatinine 2.1 H Glucose 59 L POC Glucose 125 H Hemoglobin A1c Lactic Acid Calcium 8.3 L Magnesium Alkaline Phosphatase Total Creatine Kinase CK-MB (CK-2) CK-MB (CK-2) Rel Index Troponin T NT-Pro-B Natriuret Pep Total Protein Albumin LDL Cholesterol Direct HDL Cholesterol Urine Creatinine Urine Total Protein 10/15/18 10/15/18 10/15/18 06:27 07:48 13:21 WBC RBC Hgb Hct MCH RDW Sawyer % (Auto) Eos % (Auto) Lymph # APTT D-Dimer Heparin Anti-Xa Level POC ABG pH POC ABG pCO2 48.4 H POC ABG pO2 77 L Potassium Chloride BUN Creatinine Glucose POC Glucose 46 L 65 L Hemoglobin A1c Lactic Acid Calcium Magnesium Alkaline Phosphatase Total Creatine Kinase CK-MB (CK-2) CK-MB (CK-2) Rel Index Troponin T NT-Pro-B Natriuret Pep Total Protein Albumin LDL Cholesterol Direct HDL Cholesterol Urine Creatinine Urine Total Protein 10/15/18 10/15/18 10/16/18 13:24 21:23 06:25 WBC RBC Hgb Hct MCH RDW Sawyer % (Auto) Eos % (Auto) Lymph # APTT D-Dimer Heparin Anti-Xa Level POC ABG pH POC ABG pCO2 POC ABG pO2 Potassium Chloride 107.7 H BUN 53 H Creatinine 2.2 H Glucose 61 L POC Glucose 106 H 160 H Hemoglobin A1c Lactic Acid Calcium Magnesium Alkaline Phosphatase Total Creatine Kinase CK-MB (CK-2) CK-MB (CK-2) Rel Index Troponin T NT-Pro-B Natriuret Pep Total Protein Albumin LDL Cholesterol Direct HDL Cholesterol Urine Creatinine Urine Total Protein 10/16/18 06:49 WBC RBC Hgb Hct MCH RDW Sawyer % (Auto) Eos % (Auto) Lymph # APTT D-Dimer Heparin Anti-Xa Level POC ABG pH POC ABG pCO2 POC ABG pO2 Potassium Chloride BUN Creatinine Glucose POC Glucose 51 L Hemoglobin A1c Lactic Acid Calcium Magnesium Alkaline Phosphatase Total Creatine Kinase CK-MB (CK-2) CK-MB (CK-2) Rel Index Troponin T NT-Pro-B Natriuret Pep Total Protein Albumin LDL Cholesterol Direct HDL Cholesterol Urine Creatinine Urine Total Protein Additional Studies: PERFUSION LUNG SCAN REPORTED INTERMEDIATE PROBABILITY FOR PULMONARY EMBOLI. pATIENT ALREADY HAS VENOUS DOPPLER STUDIES, REPORTED NEGATIVE FOR dvt. Allied health notes reviewed: nursing
[2018-10-16] MEDS: FEOSOL PO SCH (10:53)
[2018-10-16] MEDS: ASPIRIN PO SCH (10:53)
[2018-10-16] MEDS: NEURONTIN PO SCH ×2 (10:54→11:08)
[2018-10-16] MEDS: COREG PO SCH ×2 (10:54→22:27)
--- NOTE | 2018-10-16 10:54 | XRay Report ---
PORTABLE CHEST INDICATION: Shortness of breath. COMPARISON: 10/10/2018 FINDINGS: Portable, frontal chest radiograph demonstrate stable cardiomediastinal silhouette/possible cardiomegaly. Right mid to lower lung haziness/pleural effusion again noted with obscured right hemidiaphragm. Left hemidiaphragmatic obscuration medially also not excluded. Improved congestive pulmonary haziness. Interval right upper extremity PICC removal. EKG leads. Limited patient positioning. Stable demineralized bones with degenerative changes as at the left shoulder. CONCLUSION: Interval right upper extremity PICC removal with right pleural effusion again noted, as described. Please correlate. Thank you for the opportunity to participate in this patient's care.
[2018-10-16] MEDS: LEVAQUIN PO SCH (10:56)
[2018-10-16] MEDS: PEPCID PO SCH (10:56)
[2018-10-16] MEDS: SODIUM CHLORIDE FLUSH SYRINGE 10 ML IV SCH ×2 (10:58→22:28)
--- NOTE | 2018-10-16 11:30 | Progress Note ---
Assessment and Plan 1. Acute kidney injury: MAXIMO likely Vasomotor / hemodynamic mediated in the setting of hypotension. Patient received hemodialysis on 10/11/2018 for continued decline in the Renal function and hyperkalemia. Gradual increase in BUN and creatinine level noted. Monitor renal function and LEATHERSMITH needs. 2. FEN: Volume overload, Isolated UF today. Started on IV Lasix. 3. CHF exacerbation: Was on Dobutamine drip. 4. Hypotension: BP is better. 5. : Miranda catheter. 6. Anemia: Monitor. Subjective Date of service: 10/16/18 Principal diagnosis: Severe Sepsis with Shock; Acute encephalopathy; MAXIMO; Diabetes II; CMOP Interval history: Patient was seen and examined at the bedside. C/o scrotal swelling. Objective - Vital Signs Vital signs: Vital Signs - 12hr 10/16/18 10/16/18 10/16/18 00:00 00:06 05:13 Temperature 97.8 F Pulse Rate 71 71 68 Respiratory 16 17 Rate Blood Pressure 128/68 135/76 O2 Sat by Pulse 97 96 Oximetry 10/16/18 10:54 Temperature Pulse Rate 96 H Respiratory Rate Blood Pressure 135/76 O2 Sat by Pulse Oximetry - General Appearance General appearance: well-developed, well-nourished, appears stated age, other (n ot in distress) EENT: ATNC, PERRL, hearing intact, vision intact Neck: supple Respiratory: Present: Clear to Ascultation Cardiology: regular, S1S2, no murmurs Gastrointestinal: normoactive bowel sounds, no tenderness, no distended, other (scrotal edema noted) Integumentary: other (left foot dressing) Neurologic: no focal deficit, other (tremors noted, dysarthria) Musculoskeletal: other (bilateral LE and dependent edema noted, right groin hemodialysis catheter noted) - Lab 10/15/18 05:39 10/16/18 06:25 Most recent lab results Calcium 8.7 mg/dL (8.4-10.2) 10/16/18 06:25 Phosphorus 4.40 mg/dL (2.5-4.5) 10/14/18 06:06 Magnesium 2.40 mg/dL (1.7-2.3) H 10/14/18 06:06 Urine Creatinine 118.6 mg/dL (0.1-20.0) H 10/10/18 22:30 Urine Sodium 35 mmol/L 10/10/18 22:30 Urine Total Protein 152 mg/dL (5-11.8) H 10/10/18 22:30 Medications & Allergies - Medications Allergies/Adverse Reactions: Allergies No Known Allergies Allergy (Unverified 10/09/18 10:44) Home Medications: Home Medications Medication Instructions Recorded Confirmed Last Taken Type Carvedilol [Coreg] 3.125 mg PO BID 10/09/18 10/09/[address] [DepaKOTE DR] 500 mg PO BID 10/09/18 10/09/18 Unknown History Ferrous Sulfate [Feosol] 325 mg PO QDAY 10/09/18 10/09/18 Unknown History Furosemide [Lasix] 80 mg PO DAILY 10/09/18 10/09/18 Unknown History Gabapentin [Neurontin] 300 mg PO Q8HR 10/09/18 10/09/18 Unknown History ISOSORBIDE MONOnitrate [Imdur ER] 30 mg PO DAILY 10/09/18 10/09/18 Unknown Hist ory Insulin Glargine,Hum.rec.anlog 40 units SQ QHS 10/09/18 10/09/18 Unknown History [Lantus] Magnesium Oxide [Mag-Ox] 400 mg PO DAILY 10/09/18 10/09/18 Unknown History Simvastatin [Zocor TAB] 20 mg PO QHS 10/09/18 10/09/18 Unknown History Sulfamethoxazole/Trimethoprim 1 each PO BID 10/09/18 10/09/18 Unknown History [Bactrim DS TAB] glipiZIDE [Glipizide] 10 mg PO DAILY 10/09/18 10/09/18 Unknown History hydrALAZINE [Apresoline TAB] 100 mg PO BID 10/09/18 10/09/18 Unknown History risperiDONE [RisperDAL] 1 mg PO QHS 10/09/18 10/09/18 Unknown History Active Medications: Generic Name Dose Route Start Last Admin Trade Name Freq PRN Reason Stop Dose Admin Albumin Human 25 gm 10/11/18 09:35 Alburx 25% (Albumin) IV JUDE PRN Hypotension Aspirin 325 mg 10/10/18 10:00 10/16/18 10:53 Aspirin PO 325 mg QDAY JAMIL Administration Carvedilol 6.25 mg 10/14/18 22:00 10/16/18 10:54 Coreg PO 6.25 mg BID JAMIL Administration Dextrose 50 ml 10/10/18 11:03 10/16/18 07:14 D50w (25gm) Syringe IV 50 ml PRN PRN Administration Hypoglycemia Divalproex Sodium 500 mg 10/09/18 22:00 10/16/18 10:[address] PO 500 mg BID JAMIL Administration Famotidine 20 mg 10/10/18 12:00 10/16/18 10:56 Pepcid PO 20 mg DAILY JAMIL Administration Ferrous Sulfate 325 mg 10/10/18 10:00 10/16/18 10:53 Feosol PO 325 mg QDAY JAMIL Administration Gabapentin 300 mg 10/15/18 10:00 10/16/18 11:08 Neurontin PO Not Given DAILY [facility] Heparin Sodium (Porcine) 5,000 unit 10/11/18 15:00 10/16/18 06:36 Heparin SUB-Q 5,000 unit Q8HR JAMIL Administration Hydralazine HCl 20 mg 10/13/18 18:43 10/13/18 20:00 Apresoline IV 20 mg Q4HR PRN Administration Increased Blood Pressure Sodium Chloride 100 mls @ 999 mls/hr 10/15/18 14:16 Nacl 0.9% IV JUDE PRN Hypotension Insulin Human Regular 0 units 10/10/18 11:30 10/16/18 08:36 Humulin R SUB-Q Not Given ACHS [facility] Protocol Levofloxacin 500 mg 10/12/18 10:00 10/16/18 10:56 Levaquin PO 10/18/18 10:01 500 mg Q48HR JAMIL Administration Pravastatin Sodium 40 mg 10/09/18 22:00 10/15/18 22:41 Pravachol PO 40 mg QHS JAMIL Administration Risperidone 1 mg 10/09/18 22:00 10/15/18 22:41 Risperdal PO 1 mg QHS JAMIL Administration Sodium Chloride 10 ml 10/09/18 13:00 10/16/18 10:58 Sodium Chloride Flush Syringe 10 Ml IV 10 ml BID JAMIL Administration Sodium Chloride 10 ml 10/09/18 13:00 Sodium Chloride Flush Syringe 10 Ml IV PRN PRN LINE FLUSH
[2018-10-16] MEDS ORDERED: NACL 0.9% 100 ML IV PRN (11:52)
[2018-10-16] MEDS: LASIX IV SCH (18:39)
--- NOTE | 2018-10-16 20:12 | Progress Note ---
Assessment and Plan Assessment and plan: --Bilateral moderate pleural effusion; possible thoracentesis Continue supportive., HD for fluid overload --Altered mental status/Acute encephalopathy ; present on admission head CT with no acute process, slightly improved continue current management --MAXIMO / hyperkalemia - consulted nephro, s/p HD on 10/11/18 for declining renal function, cont to monitor renal function --Hypotension - required vasopressor support following admission, now weaned off. ordered dobutamin during HD --NSTEMI type II- s/p heparin drip, obtained 2d echo, cardiology following --Acute on chronic systolic CHF: EF 35-40%, cardiology consulted, cont aspirin/statin, monitor daily wt, ins/os, restrict fluid --Sinus bradycardia - avoid BB --Anemia, monitor H/H, glenn from CD, will r/o GI bleed --HTN, hold antihypertensives --DM, cont SSI, Accu-Cheks, ADA diet, insulin as needed --HLP, cont statin -- h/o psych disorder, supportive care --Extensive scrotal swelling, ultrasound; thick skin, testis and epididymis normal Consults and recommendations noted and appreciated Plan of care is reviewed for the patient Possible discharge in 1-2 days if stable History Interval history: Condition seen and examined medical records reviewed Patient feels slightly better still has shortness of breath Ultrasound chest bilateral moderate effusion Vital signs noted Hospitalist Physical - Constitutional Vitals: Temp Pulse Resp BP Pulse Ox 97.5 F L 61 16 117/65 96 10/16/18 17:42 10/16/18 17:42 10/16/18 17:42 10/16/18 17:42 10/16/18 05:13 General appearance: Present: no acute distress, well-nourished - EENT Eyes: Present: PERRL, EOM intact - Neck Neck: Present: supple, normal ROM - Respiratory Respiratory effort: normal Respiratory: bilateral: diminished, rales, negative: rhonchi, wheezing - Cardiovascular Rhythm: regular Heart Sounds: Present: S1 & S2 - Extremities Extremities: no ischemia Extremity abnormal: edema - Abdominal General gastrointestinal: soft, non-tender, non-distended, normal bowel sounds - Integumentary Integumentary: Present: clear, warm - Psychiatric Psychiatric: appropriate mood/affect, cooperative - Neurologic Neurologic: CNII-XII intact, moves all extremities Results - Labs CBC & Chem 7: 10/15/18 05:39 10/16/18 06:25 Labs: Laboratory Last Values WBC 3.3 K/mm3 (4.5-11.0) L 10/10/18 05:00 RBC 2.99 M/mm3 (3.65-5.03) L 10/10/18 05:00 Hgb 7.6 gm/dl (11.8-15.2) L 10/15/18 05:39 Hct 23.5 % (35.5-45.6) L 10/15/18 05:39 MCV 87 fl (84-94) 10/10/18 05:00 MCH 27 pg (28-32) L 10/10/18 05:00 MCHC 32 % (32-34) 10/10/18 05:00 RDW 19.2 % (13.2-15.2) H 10/10/18 05:00 Plt Count 227 K/mm3 (140-440) 10/15/18 05:39 Lymph % (Auto) 16.4 % (13.4-35.0) 10/10/18 05:00 [place] % (Auto) 13.2 % (0.0-7.3) H 10/10/18 05:00 Eos % (Auto) 5.8 % (0.0-4.3) H 10/10/18 05:00 Baso % (Auto) 0.6 % (0.0-1.8) 10/10/18 05:00 Lymph # 0.5 K/mm3 (1.2-5.4) L 10/10/18 05:00 [place] # 0.4 K/mm3 (0.0-0.8) 10/10/18 05:00 Eos # 0.2 K/mm3 (0.0-0.4) 10/10/18 05:00 Baso # 0.0 K/mm3 (0.0-0.1) 10/10/18 05:00 Seg Neutrophils % 64.0 % (40.0-70.0) 10/10/18 05:00 Seg Neutrophils # 2.1 K/mm3 (1.8-7.7) 10/10/18 05:00 PT 13.0 Sec. (12.2-14.9) 10/09/18 14:25 INR 0.94 (0.87-1.13) 10/09/18 14:25 APTT 42.4 Sec. (24.2-36.6) H 10/09/18 14:25 D-Dimer 927.57 ng/mlDDU (0-234) H 10/10/18 13:36 Heparin Anti-Xa Level 0.49 U.I./ml (0.3-0.7) 10/11/18 04:31 POC ABG pH 7.359 (7.35-7.45) 10/15/18 13:21 POC ABG pCO2 48.4 (35-45) H 10/15/18 13:21 POC ABG pO2 77 (80-105) L 10/15/18 13:21 POC ABG HCO3 27.3 10/15/18 13:21 POC ABG Total CO2 29 10/15/18 13:21 POC ABG O2 Sat 95 10/15/18 13:21 POC ABG Base Excess 2 10/15/18 13:21 FiO2 21 % 10/15/18 13:21 Sodium 145 mmol/L (137-145) 10/16/18 06:25 Potassium 5.0 mmol/L (3.6-5.0) 10/16/18 06:25 Chloride 107.7 mmol/L (98-107) H 10/16/18 06:25 Carbon Dioxide 28 mmol/L (22-30) 10/16/18 06:25 Anion Gap 14 mmol/L 10/16/18 06:25 BUN 53 mg/dL (9-20) H 10/16/18 06:25 Creatinine 2.2 mg/dL (0.8-1.5) H 10/16/18 06:25 Estimated GFR 39 ml/min 10/16/18 06:25 BUN/Creatinine Ratio 24 % 10/16/18 06:25 Glucose 61 mg/dL (75-100) L 10/16/18 06:25 POC Glucose 101 (70-105) 10/16/18 12:23 Hemoglobin A1c 8.2 % (4-6) H 10/10/18 05:00 Lactic Acid 0.60 mmol/L (0.7-2.0) L 10/10/18 13:36 Calcium 8.7 mg/dL (8.4-10.2) 10/16/18 06:25 Phosphorus 4.40 mg/dL (2.5-4.5) 10/14/18 06:06 Magnesium 2.40 mg/dL (1.7-2.3) H 10/14/18 06:06 Total Bilirubin < 0.20 mg/dL (0.1-1.2) 10/11/18 20:45 AST 31 units/L (5-40) 10/11/18 20:45 ALT 56 units/L (7-56) 10/11/18 20:45 Alkaline Phosphatase 261 units/L (35-129) H 10/11/18 20:45 Total Creatine Kinase 481 units/L (55-170) H 10/09/18 11:22 CK-MB (CK-2) 20.5 ng/mL (0.0-4.0) H 10/09/18 11:22 CK-MB (CK-2) Rel Index 4.2 (0-4) H 10/09/18 11:22 Troponin T 0.139 ng/mL (0.00-0.029) H* 10/09/18 20:56 C-Reactive Protein 0.90 mg/dL (0.00-1.30) 10/10/18 13:36 NT-Pro-B Natriuret Pep 2963 pg/mL (0-450) H 10/09/18 11:22 Total Protein 6.2 g/dL (6.3-8.2) L 10/11/18 20:45 Albumin 3.0 g/dL (3.9-5) L 10/11/18 20:45 Albumin/Globulin Ratio 0.9 % 10/11/18 20:45 Triglycerides 24 mg/dL (2-149) 10/09/18 11:22 Cholesterol 115 mg/dL (50-199) 10/09/18 11:22 LDL Cholesterol Direct 49 mg/dL (50-130) L 10/09/18 11:22 HDL Cholesterol 73 mg/dL (40-59) H 10/09/18 11:22 Cholesterol/HDL Ratio 1.57 % 10/09/18 11:22 Urine Color Tamie (Yellow) 10/10/18 22:30 Urine Turbidity Clear (Clear) 10/10/18 22:30 Urine pH 5.0 (5.0-7.0) 10/10/18 22:30 Ur Specific [place] 1.016 (1.003-1.030) 10/10/18 22:30 Urine Protein 100 mg/dl mg/dL (Negative) 10/10/18 22:30 Urine Glucose (UA) 50 mg/dL (Negative) 10/10/18 22:30 Urine Ketones Neg mg/dL (Negative) 10/10/18 22:30 Urine Blood Neg (Negative) 10/10/18 22:30 Urine Nitrite Neg (Negative) 10/10/18 22:30 Urine Bilirubin Neg (Negative) 10/10/18 22:30 Urine Urobilinogen 4.0 mg/dL (<2.0) 10/10/18 22:30 Ur Leukocyte Esterase Tr (Negative) 10/10/18 22:30 Urine WBC (Auto) 2.0 /HPF (0.0-6.0) 10/10/18 22:30 Urine RBC (Auto) 5.0 /HPF (0.0-6.0) 10/10/18 22:30 U Epithel Cells (Auto) < 1.0 /HPF (0-13.0) 10/10/18 22:30 Urine Bacteria (Auto) 1+ /HPF (Negative) 10/10/18 22:30 Hyaline Casts 1 /LPF 10/10/18 22:30 Urine Mucus Few /HPF 10/10/18 22:30 Urine Creatinine 118.6 mg/dL (0.1-20.0) H 10/10/18 22:30 Protein/Creatinin Ratio 1.28 10/10/18 22:30 Urine Sodium 35 mmol/L 10/10/18 22:30 Urine Total Protein 152 mg/dL (5-11.8) H 10/10/18 22:30 Hepatitis A IgM Ab Non-reactive (NonReactive) 10/11/18 13:24 Hep Bs Antigen Non-reactive (Negative) 10/11/18 13:24 Hep B Core IgM Ab Non-reactive (NonReactive) 10/11/18 13:24 Hepatitis C Antibody Non-reactive (NonReactive) 10/11/18 13:24 Nutrition/Malnutrition Assess - Dietary Evaluation Nutrition/Malnutrition Findings: Nutrition Notes Start: 10/16/18 16:17 Freq: Status: Active Protocol: Document 10/16/18 16:17 RM (Rec: 10/16/18 16:25 RM [id number]) Nutrition Notes Need for Assessment generated from: LOS Initial or Follow up Assessment Current Diagnosis Acute Kidney Injury Diabetes Hypertension Heart Failure Other Pertinent Diagnosis Encephalopathy Current Diet Cardiac/Renal/Consistent Carb Labs/Tests Reviewed Pertinent Medications Reviewed Height 6 ft 2 in Weight 119 kg [place] Body Weight (lbs) 190.0 BMI 33.7 Weight change and time frame recorded wt loss likely d/t fluid change Subjective/Other Information Pt screened for LOS. Pt somewhat confused at time of visit. Noted lunch at bedside with 1/3 eaten. Per pt tech pt drinks the Nepro. Percent of energy/protein needs met: 44%/46% Burn Absent Trauma Absent #1 Nutrition Diagnosis Inadequate oral intake Etiology encephalopathy As Evidenced by Signs and Symptoms lunch at bedside with 1/3 eaten Is patient on ventilator? No Is Patient Ambulatory and/or Out of Bed No REE-([place]-[facility]. Jeor-confined to bed) 2558.880 [facility] Additional Notes Protein Needs: 103-134g (1-1. 3g/kg, 103kg adjBW) Fluid Needs: 1ml/kcal Nutrition Intervention Change Diet Order: Continue current Add Supplement/Snack (indicate name/kcal Continue Nepro BID /protein ) Provides kCal: 850 Provides Protein (gm) 38 Goal #1 Meet at least 75% of calorie and protein needs via PO and ONS intakes Anticipated Discharge Needs: Cardiac/Consistent Carb/Renal Follow-Up By: 10/18/18 Additional Comments Follow for PO intakes, ONS intakes
[2018-10-16] MEDS: RisperDAL PO SCH (22:27)
[2018-10-16] MEDS: PRAVACHOL PO SCH (22:27)
[2018-10-17 06:37] LABS: Hematocrit 23.1 % (35.5-45.6); Hemoglobin 7.6 gm/dl (11.8-15.2)
[2018-10-17 06:41] LABS: Calcium 8.4 mg/dL (8.4-10.2)
[2018-10-17] MEDS: LASIX IV SCH ×2 (06:58→19:06)
[2018-10-17] MEDS: HEPARIN SUB-Q SCH ×3 (06:58→21:45)
--- NOTE | 2018-10-17 08:06 | Progress Note ---
Assessment and Plan Assessment and plan: --Bilateral moderate pleural effusion; scheduled for possible thoracentesis today Continue supportive., Fluid analysis, HD for fluid overload --Altered mental status/Acute encephalopathy ; present on admission head CT with no acute process, slightly improved continue current management --MAXIMO / hyperkalemia - consulted nephro, s/p HD on 10/11/18 for declining renal function, cont to monitor renal function --Hypotension - required vasopressor support following admission, now weaned off. ordered dobutamin during HD --NSTEMI type II- s/p heparin drip, obtained 2d echo, cardiology following --Acute on chronic systolic CHF: EF 35-40%, cardiology consulted, cont aspirin/statin, monitor daily wt, ins/os, restrict fluid --Sinus bradycardia - avoid BB --Anemia, monitor H/H, glenn from CD, will r/o GI bleed --HTN, hold antihypertensives --DM, cont SSI, Accu-Cheks, ADA diet, insulin as needed --HLP, cont statin -- h/o psych disorder, supportive care --Extensive scrotal swelling, ultrasound; thick skin, testis and epididymis normal Consults and recommendations noted and appreciated Plan of care is reviewed for the patient Possible discharge in 1-2 days if stable History Interval history: Patient seen and examined medical records reviewed Scheduled for ultrasound-guided thoracentesis today Patient feels better no new complaints Vital signs noted Hospitalist Physical - Constitutional Vitals: Temp Pulse Resp BP Pulse Ox 97.3 F L 74 17 128/71 98 10/17/18 04:57 10/17/18 04:57 10/17/18 04:57 10/17/18 04:57 10/17/18 04:57 General appearance: Present: no acute distress, well-nourished - EENT Eyes: Present: PERRL, EOM intact - Neck Neck: Present: supple, normal ROM - Respiratory Respiratory effort: normal Respiratory: bilateral: diminished, negative: rales, rhonchi, wheezing - Cardiovascular Rhythm: regular Heart Sounds: Present: S1 & S2 - Extremities Extremities: no ischemia, No edema - Abdominal General gastrointestinal: soft, non-tender, non-distended, normal bowel sounds - Integumentary Integumentary: Present: clear, warm - Psychiatric Psychiatric: appropriate mood/affect, cooperative - Neurologic Neurologic: CNII-XII intact, moves all extremities Results - Labs CBC & Chem 7: 10/17/18 05:22 10/17/18 05:22 Labs: Laboratory Last Values WBC 3.3 K/mm3 (4.5-11.0) L 10/10/18 05:00 RBC 2.99 M/mm3 (3.65-5.03) L 10/10/18 05:00 Hgb 7.6 gm/dl (11.8-15.2) L 10/17/18 05:22 Hct 23.1 % (35.5-45.6) L 10/17/18 05:22 MCV 87 fl (84-94) 10/10/18 05:00 MCH 27 pg (28-32) L 10/10/18 05:00 MCHC 32 % (32-34) 10/10/18 05:00 RDW 19.2 % (13.2-15.2) H 10/10/18 05:00 Plt Count 242 K/mm3 (140-440) 10/17/18 05:22 Lymph % (Auto) 16.4 % (13.4-35.0) 10/10/18 05:00 [place] % (Auto) 13.2 % (0.0-7.3) H 10/10/18 05:00 Eos % (Auto) 5.8 % (0.0-4.3) H 10/10/18 05:00 Baso % (Auto) 0.6 % (0.0-1.8) 10/10/18 05:00 Lymph # 0.5 K/mm3 (1.2-5.4) L 10/10/18 05:00 [place] # 0.4 K/mm3 (0.0-0.8) 10/10/18 05:00 Eos # 0.2 K/mm3 (0.0-0.4) 10/10/18 05:00 Baso # 0.0 K/mm3 (0.0-0.1) 10/10/18 05:00 Seg Neutrophils % 64.0 % (40.0-70.0) 10/10/18 05:00 Seg Neutrophils # 2.1 K/mm3 (1.8-7.7) 10/10/18 05:00 PT 13.0 Sec. (12.2-14.9) 10/09/18 14:25 INR 0.94 (0.87-1.13) 10/09/18 14:25 APTT 42.4 Sec. (24.2-36.6) H 10/09/18 14:25 D-Dimer 927.57 ng/mlDDU (0-234) H 10/10/18 13:36 Heparin Anti-Xa Level 0.49 U.I./ml (0.3-0.7) 10/11/18 04:31 POC ABG pH 7.359 (7.35-7.45) 10/15/18 13:21 POC ABG pCO2 48.4 (35-45) H 10/15/18 13:21 POC ABG pO2 77 (80-105) L 10/15/18 13:21 POC ABG HCO3 27.3 10/15/18 13:21 POC ABG Total CO2 29 10/15/18 13:21 POC ABG O2 Sat 95 10/15/18 13:21 POC ABG Base Excess 2 10/15/18 13:21 FiO2 21 % 10/15/18 13:21 Sodium 141 mmol/L (137-145) 10/17/18 05:22 Potassium 5.0 mmol/L (3.6-5.0) 10/17/18 05:22 Chloride 104.3 mmol/L (98-107) 10/17/18 05:22 Carbon Dioxide 26 mmol/L (22-30) 10/17/18 05:22 Anion Gap 16 mmol/L 10/17/18 05:22 BUN 59 mg/dL (9-20) H 10/17/18 05:22 Creatinine 2.2 mg/dL (0.8-1.5) H 10/17/18 05:22 Estimated GFR 39 ml/min 10/17/18 05:22 BUN/Creatinine Ratio 27 % 10/17/18 05:22 Glucose 111 mg/dL (75-100) H 10/17/18 05:22 POC Glucose 153 (70-105) H 10/16/18 21:42 Hemoglobin A1c 8.2 % (4-6) H 10/10/18 05:00 Lactic Acid 0.60 mmol/L (0.7-2.0) L 10/10/18 13:36 Calcium 8.4 mg/dL (8.4-10.2) 10/17/18 05:22 Phosphorus 4.40 mg/dL (2.5-4.5) 10/14/18 06:06 Magnesium 2.40 mg/dL (1.7-2.3) H 10/14/18 06:06 Total Bilirubin < 0.20 mg/dL (0.1-1.2) 10/11/18 20:45 AST 31 units/L (5-40) 10/11/18 20:45 ALT 56 units/L (7-56) 10/11/18 20:45 Alkaline Phosphatase 261 units/L (35-129) H 10/11/18 20:45 Total Creatine Kinase 481 units/L (55-170) H 10/09/18 11:22 CK-MB (CK-2) 20.5 ng/mL (0.0-4.0) H 10/09/18 11:22 CK-MB (CK-2) Rel Index 4.2 (0-4) H 10/09/18 11:22 Troponin T 0.139 ng/mL (0.00-0.029) H* 10/09/18 20:56 C-Reactive Protein 0.90 mg/dL (0.00-1.30) 10/10/18 13:36 NT-Pro-B Natriuret Pep 2963 pg/mL (0-450) H 10/09/18 11:22 Total Protein 6.2 g/dL (6.3-8.2) L 10/11/18 20:45 Albumin 3.0 g/dL (3.9-5) L 10/11/18 20:45 Albumin/Globulin Ratio 0.9 % 10/11/18 20:45 Triglycerides 24 mg/dL (2-149) 10/09/18 11:22 Cholesterol 115 mg/dL (50-199) 10/09/18 11:22 LDL Cholesterol Direct 49 mg/dL (50-130) L 10/09/18 11:22 HDL Cholesterol 73 mg/dL (40-59) H 10/09/18 11:22 Cholesterol/HDL Ratio 1.57 % 10/09/18 11:22 PTH Intact 152.8 pg/mL (15-65) H 10/17/18 05:22 Urine Color [place] (Yellow) 10/10/18 22:30 Urine Turbidity Clear (Clear) 10/10/18 22:30 Urine pH 5.0 (5.0-7.0) 10/10/18 22:30 Ur Specific [place] 1.016 (1.003-1.030) 10/10/18 22:30 Urine Protein 100 mg/dl mg/dL (Negative) 10/10/18 22:30 Urine Glucose (UA) 50 mg/dL (Negative) 10/10/18 22:30 Urine Ketones Neg mg/dL (Negative) 10/10/18 22:30 Urine Blood Neg (Negative) 10/10/18 22:30 Urine Nitrite Neg (Negative) 10/10/18 22:30 Urine Bilirubin Neg (Negative) 10/10/18 22: Urine Urobilinogen 4.0 mg/dL (<2.0) 10/10/18 22:30 Ur Leukocyte Esterase Tr (Negative) 10/10/18 22:30 Urine WBC (Auto) 2.0 /HPF (0.0-6.0) 10/10/18 22:30 Urine RBC (Auto) 5.0 /HPF (0.0-6.0) 10/10/18 22:30 U Epithel Cells (Auto) < 1.0 /HPF (0-13.0) 10/10/18 22:30 Urine Bacteria (Auto) 1+ /HPF (Negative) 10/10/18 22:30 Hyaline Casts 1 /LPF 10/10/18 22:30 Urine Mucus Few /HPF 10/10/18 22:30 Urine Creatinine 118.6 mg/dL (0.1-20.0) H 10/10/18 22:30 Protein/Creatinin Ratio 1.28 10/10/18 22:30 Urine Sodium 35 mmol/L 10/10/18 22:30 Urine Total Protein 152 mg/dL (5-11.8) H 10/10/18 22:30 Hepatitis A IgM Ab Non-reactive (NonReactive) 10/11/18 13:24 Hep Bs Antigen Non-reactive (Negative) 10/11/18 13:24 Hep B Core IgM Ab Non-reactive (NonReactive) 10/11/18 13:24 Hepatitis C Antibody Non-reactive (NonReactive) 10/11/18 13:24 Nutrition/Malnutrition Assess - Dietary Evaluation Nutrition/Malnutrition Findings: Nutrition Notes Start: 10/16/18 16:17 Freq: Status: Active Protocol: Document 10/16/18 16:17 RM (Rec: 10/16/18 16:25 RM [id number]) Nutrition Notes Need for Assessment generated from: LOS Initial or Follow up Assessment Current Diagnosis Acute Kidney Injury Diabetes Hypertension Heart Failure Other Pertinent Diagnosis Encephalopathy Current Diet Cardiac/Renal/Consistent Carb Labs/Tests Reviewed Pertinent Medications Reviewed Height 6 ft 2 in Weight 119 kg [place] Body Weight (lbs) 190.0 BMI 33.7 Weight change and time frame recorded wt loss likely d/t fluid change Subjective/Other Information Pt screened for LOS. Pt somewhat confused at time of visit. Noted lunch at bedside with 1/3 eaten. Per pt tech pt drinks the Nepro. Percent of energy/protein needs met: 44%/46% Burn Absent Trauma Absent #1 Nutrition Diagnosis Inadequate oral intake Etiology encephalopathy As Evidenced by Signs and Symptoms lunch at bedside with 1/3 eaten Is patient on ventilator? No Is Patient Ambulatory and/or Out of Bed No REE-([place]-St. Jeor-confined to bed) 2558.880 Calculation Used for Recommendations [place]-St Jeor Additional Notes Protein Needs: 103-134g (1-1. 3g/kg, 103kg adjBW) Fluid Needs: 1ml/kcal Nutrition Intervention Change Diet Order: Continue current Add Supplement/Snack (indicate name/kcal Continue Nepro BID /protein ) Provides kCal: 850 Provides Protein (gm) 38 Goal #1 Meet at least 75% of calorie and protein needs via PO and ONS intakes Anticipated Discharge Needs: Cardiac/Consistent Carb/Renal Follow-Up By: 10/18/18 Additional Comments Follow for PO intakes, ONS intakes
[2018-10-17] MEDS: HumuLIN R SUB-Q SCH ×4 (09:14→21:53)
[2018-10-17 09:33] LABS: INR 1.04 (0.87-1.13)
--- NOTE | 2018-10-17 09:46 | Progress Note ---
Assessment and Plan Severe Sepsis syndrome. Shock (cardiogenic versus septic) Acute encephalopathy. Possible seizures. History of diabetes CMOP Leukopenia. Anemia that is normocytic. Acute hypercapnic respiratory acidosis. Hyperkalemia. Acute kidney injury. Non-ST elevation myocardial infarction. Hypoglycemia. Possible peripheral vascular disease. Obesity. - supplemental oxygen to keep sats > 90% - BIPAP qhs possible sleep apnea - PT/OT as tolerated - aspiration precautions - prn bronchodilators with pulmonary hygiene per RT - continue empiric Antibiotics to complete course -cardio-protective measures -continue all current care Supportive care Discharge planning Subjective Date of service: 10/17/18 Principal diagnosis: Severe Sepsis with Shock; Acute encephalopathy; MAXIMO; Diabetes II; CMOP Interval history: Patient is seen today for: Severe Sepsis syndrome; Shock (cardiogenic versus septic); Acute encephalopathy; Possible seizures; History of diabetes; CMOP Seen and examined at bedside; 24hour events reviewed; nursing and respiratory care staff consulted; no adverse overnight events reported to me; resting peacefully in bed; denies acute chest pains or palpitations; no chest pain, no shortness of breath. Objective Vital Signs - 12hr 10/16/18 10/17/18 10/17/18 22:27 00:00 00:16 Temperature 98.4 F Pulse Rate 70 70 71 Respiratory 17 Rate Blood Pressure 127/70 140/75 O2 Sat by Pulse 97 Oximetry 10/17/18 10/17/18 04:00 04:57 Temperature 97.3 F L Pulse Rate 74 74 Respiratory 17 Rate Blood Pressure 128/71 O2 Sat by Pulse 98 Oximetry Constitutional: no acute distress, alert, other (middle aged AAM, normocephalic and atraumatic with normal respiratory effort) Eyes: non-icteric ENT: oropharynx moist Neck: supple, no lymphadenopathy, no JVD Effort: normal Ascultation: Bilateral: diminished breath sounds, rales (bases) Percussion: Bilateral: not dull Cardiovascular: regular rate and rhythm Gastrointestinal: normoactive bowel sounds, soft, non-tender, non-distended Integumentary: rash (feet) Extremities: no cyanosis, pulses normal, no ischemia or petechiae, edema (1+) Neurologic: normal mental status, non-focal exam, pupils equal and round, motor strength normal and, other (sensory numbness to feet) Psychiatric: mood appropriate, affect normal, other (affect flat.) CBC and BMP: 10/19/18 04:53 10/20/18 05:30 ABG, PT/INR, D-dimer: ABG POC ABG pH 7.359 (7.35-7.45) 10/15/18 13:21 POC ABG pCO2 48.4 (35-45) H 10/15/18 13:21 POC ABG pO2 77 (80-105) L 10/15/18 13:21 POC ABG HCO3 27.3 10/15/18 13:21 POC ABG Total CO2 29 10/15/18 13:21 POC ABG O2 Sat 95 10/15/18 13:21 PT/INR, D-dimer PT 14.0 Sec. (12.2-14.9) 10/17/18 Unknown INR 1.04 (0.87-1.13) 10/17/18 Unknown D-Dimer 927.57 ng/mlDDU (0-234) H 10/10/18 13:36 Abnormal lab findings: Abnormal Labs 10/09/18 10/09/18 10/09/18 11:22 11:22 11:22 WBC 3.3 L RBC 3.03 L Hgb 8.4 L Hct 25.8 L MCH RDW 18.7 H [place] % (Auto) 12.1 H Eos % (Auto) 4.6 H Lymph # 0.5 L APTT 42.8 H D-Dimer Heparin Anti-Xa Level POC ABG pH POC ABG pCO2 POC ABG pO2 Potassium 5.2 H Chloride 108.2 H BUN 49 H Creatinine 1.9 H Glucose 153 H POC Glucose Hemoglobin A1c Lactic Acid Calcium Magnesium Alkaline Phosphatase Total Creatine Kinase 481 H CK-MB (CK-2) 20.5 H CK-MB (CK-2) Rel Index 4.2 H Troponin T 0.153 H* NT-Pro-B Natriuret Pep 2963 H Total Protein Albumin LDL Cholesterol Direct 49 L HDL Cholesterol 73 H PTH Intact Urine Creatinine Urine Total Protein 10/09/18 10/09/18 10/09/18 13:43 14:25 14:25 WBC RBC Hgb 8.2 L Hct 26.2 L MCH RDW [place] % (Auto) Eos % (Auto) Lymph # APTT 42.4 H D-Dimer Heparin Anti-Xa Level POC ABG pH POC ABG pCO2 POC ABG pO2 Potassium Chloride BUN Creatinine Glucose POC Glucose 167 H Hemoglobin A1c Lactic Acid Calcium Magnesium Alkaline Phosphatase Total Creatine Kinase CK-MB (CK-2) CK-MB (CK-2) Rel Index Troponin T NT-Pro-B Natriuret Pep Total Protein Albumin LDL Cholesterol Direct HDL Cholesterol PTH Intact Urine Creatinine Urine Total Protein 10/09/18 10/09/18 10/09/18 17:28 20:56 21:23 WBC RBC Hgb Hct MCH RDW [place] % (Auto) Eos % (Auto) Lymph # APTT D-Dimer Heparin Anti-Xa Level 0.28 L POC ABG pH POC ABG pCO2 POC ABG pO2 Potassium Chloride BUN Creatinine Glucose POC Glucose Hemoglobin A1c Lactic Acid Calcium Magnesium Alkaline Phosphatase Total Creatine Kinase CK-MB (CK-2) CK-MB (CK-2) Rel Index Troponin T 0.136 H* 0.139 H* NT-Pro-B Natriuret Pep Total Protein Albumin LDL Cholesterol Direct HDL Cholesterol PTH Intact Urine Creatinine Urine Total Protein 10/10/18 10/10/18 10/10/18 00:10 05:00 05:00 WBC 3.3 L RBC 2.99 L Hgb 8.2 L Hct 25.9 L MCH 27 L RDW 19.2 H [place] % (Auto) 13.2 H Eos % (Auto) 5.8 H Lymph # 0.5 L APTT D-Dimer Heparin Anti-Xa Level POC ABG pH POC ABG pCO2 POC ABG pO2 Potassium 5.6 H Chloride 110.8 H BUN 50 H Creatinine 2.2 H Glucose 52 L POC Glucose 60 L Hemoglobin A1c Lactic Acid Calcium 8.1 L Magnesium Alkaline Phosphatase Total Creatine Kinase CK-MB (CK-2) CK-MB (CK-2) Rel Index Troponin T NT-Pro-B Natriuret Pep Total Protein Albumin LDL Cholesterol Direct HDL Cholesterol PTH Intact Urine Creatinine Urine Total Protein 10/10/18 10/10/18 10/10/18 05:00 06:11 11:30 WBC RBC Hgb Hct MCH RDW [place] % (Auto) Eos % (Auto) Lymph # APTT D-Dimer Heparin Anti-Xa Level POC ABG pH POC ABG pCO2 POC ABG pO2 Potassium Chloride BUN Creatinine Glucose POC Glucose 57 L 48 L Hemoglobin A1c 8.2 H Lactic Acid Calcium Magnesium Alkaline Phosphatase Total Creatine Kinase CK-MB (CK-2) CK-MB (CK-2) Rel Index Troponin T NT-Pro-B Natriuret Pep Total Protein Albumin LDL Cholesterol Direct HDL Cholesterol PTH Intact Urine Creatinine Urine Total Protein 10/10/18 10/10/18 10/10/18 12:22 13:36 13:36 WBC RBC Hgb Hct MCH RDW [place] % (Auto) Eos % (Auto) Lymph # APTT D-Dimer 927.57 H Heparin Anti-Xa Level POC ABG pH 7.286 L POC ABG pCO2 47.3 H POC ABG pO2 65 L Potassium Chloride BUN Creatinine Glucose POC Glucose Hemoglobin A1c Lactic Acid 0.60 L Calcium Magnesium Alkaline Phosphatase Total Creatine Kinase CK-MB (CK-2) CK-MB (CK-2) Rel Index Troponin T NT-Pro-B Natriuret Pep Total Protein Albumin LDL Cholesterol Direct HDL Cholesterol PTH Intact Urine Creatinine Urine Total Protein 10/10/18 10/10/18 10/10/18 16:42 21:12 22:30 WBC RBC Hgb Hct MCH RDW [place] % (Auto) Eos % (Auto) Lymph # APTT D-Dimer Heparin Anti-Xa Level POC ABG pH POC ABG pCO2 POC ABG pO2 Potassium Chloride BUN Creatinine Glucose POC Glucose 122 H 119 H Hemoglobin A1c Lactic Acid Calcium Magnesium Alkaline Phosphatase Total Creatine Kinase CK-MB (CK-2) CK-MB (CK-2) Rel Index Troponin T NT-Pro-B Natriuret Pep Total Protein Albumin LDL Cholesterol Direct HDL Cholesterol PTH Intact Urine Creatinine 118.6 H Urine Total Protein 152 H 10/11/18 10/11/18 10/11/18 04:31 04:31 13:15 WBC RBC Hgb 8.7 L Hct 27.9 L MCH RDW [place] % (Auto) Eos % (Auto) Lymph # APTT D-Dimer Heparin Anti-Xa Level POC ABG pH POC ABG pCO2 POC ABG pO2 Potassium 6.6 H* 6.4 H* Chloride BUN 55 H Creatinine 2.9 H Glucose POC Glucose Hemoglobin A1c Lactic Acid Calcium 7.6 L Magnesium Alkaline Phosphatase Total Creatine Kinase CK-MB (CK-2) CK-MB (CK-2) Rel Index Troponin T NT-Pro-B Natriuret Pep Total Protein Albumin LDL Cholesterol Direct HDL Cholesterol PTH Intact Urine Creatinine Urine Total Protein 10/11/18 10/11/18 10/12/18 20:45 22:37 04:25 WBC RBC Hgb Hct MCH RDW [place] % (Auto) Eos % (Auto) Lymph # APTT D-Dimer Heparin Anti-Xa Level POC ABG pH POC ABG pCO2 POC ABG pO2 Potassium Chloride BUN 37 H 38 H Creatinine 2.4 H 2.3 H Glucose POC Glucose 117 H Hemoglobin A1c Lactic Acid Calcium 7.5 L 7.6 L Magnesium Alkaline Phosphatase 261 H Total Creatine Kinase CK-MB (CK-2) CK-MB (CK-2) Rel Index Troponin T NT-Pro-B Natriuret Pep Total Protein 6.2 L Albumin 3.0 L LDL Cholesterol Direct HDL Cholesterol PTH Intact Urine Creatinine Urine Total Protein 10/12/18 10/12/18 10/13/18 10:02 21:33 03:28 WBC RBC Hgb 7.6 L 7.7 L Hct 24.1 L 23.8 L MCH RDW [place] % (Auto) Eos % (Auto) Lymph # APTT D-Dimer Heparin Anti-Xa Level POC ABG pH POC ABG pCO2 POC ABG pO2 Potassium Chloride BUN Creatinine Glucose POC Glucose 109 H Hemoglobin A1c Lactic Acid Calcium Magnesium Alkaline Phosphatase Total Creatine Kinase CK-MB (CK-2) CK-MB (CK-2) Rel Index Troponin T NT-Pro-B Natriuret Pep Total Protein Albumin LDL Cholesterol Direct HDL Cholesterol PTH Intact Urine Creatinine Urine Total Protein 10/13/18 10/13/18 10/13/18 03:28 08:27 15:04 WBC RBC Hgb Hct MCH RDW [place] % (Auto) Eos % (Auto) Lymph # APTT D-Dimer Heparin Anti-Xa Level POC ABG pH POC ABG pCO2 POC ABG pO2 Potassium Chloride BUN 38 H Creatinine 1.9 H Glucose POC Glucose 136 H 160 H Hemoglobin A1c Lactic Acid Calcium 8.3 L Magnesium Alkaline Phosphatase Total Creatine Kinase CK-MB (CK-2) CK-MB (CK-2) Rel Index Troponin T NT-Pro-B Natriuret Pep Total Protein Albumin LDL Cholesterol Direct HDL Cholesterol PTH Intact Urine Creatinine Urine Total Protein 10/13/18 10/13/18 10/14/18 16:53 23:06 06:06 WBC RBC Hgb Hct MCH RDW [place] % (Auto) Eos % (Auto) Lymph # APTT D-Dimer Heparin Anti-Xa Level POC ABG pH POC ABG pCO2 POC ABG pO2 Potassium Chloride 107.7 H BUN 39 H Creatinine 1.8 H Glucose 116 H POC Glucose 161 H 213 H Hemoglobin A1c Lactic Acid Calcium Magnesium 2.40 H Alkaline Phosphatase Total Creatine Kinase CK-MB (CK-2) CK-MB (CK-2) Rel Index Troponin T NT-Pro-B Natriuret Pep Total Protein Albumin LDL Cholesterol Direct HDL Cholesterol PTH Intact Urine Creatinine Urine Total Protein 10/14/18 10/14/18 10/14/18 06:34 11:01 13:50 WBC RBC Hgb 7.8 L Hct 24.8 L MCH RDW [place] % (Auto) Eos % (Auto) Lymph # APTT D-Dimer Heparin Anti-Xa Level POC ABG pH POC ABG pCO2 POC ABG pO2 Potassium Chloride BUN Creatinine Glucose POC Glucose 118 H 67 L Hemoglobin A1c Lactic Acid Calcium Magnesium Alkaline Phosphatase Total Creatine Kinase CK-MB (CK-2) CK-MB (CK-2) Rel Index Troponin T NT-Pro-B Natriuret Pep Total Protein Albumin LDL Cholesterol Direct HDL Cholesterol PTH Intact Urine Creatinine Urine Total Protein 10/14/18 10/15/18 10/15/18 21:37 05:39 05:39 WBC RBC Hgb 7.6 L Hct 23.5 L MCH RDW [place] % (Auto) Eos % (Auto) Lymph # APTT D-Dimer Heparin Anti-Xa Level POC ABG pH POC ABG pCO2 POC ABG pO2 Potassium Chloride BUN 45 H Creatinine 2.1 H Glucose 59 L POC Glucose 125 H Hemoglobin A1c Lactic Acid Calcium 8.3 L Magnesium Alkaline Phosphatase Total Creatine Kinase CK-MB (CK-2) CK-MB (CK-2) Rel Index Troponin T NT-Pro-B Natriuret Pep Total Protein Albumin LDL Cholesterol Direct HDL Cholesterol PTH Intact Urine Creatinine Urine Total Protein 10/15/18 10/15/18 10/15/18 06:27 07:48 13:21 WBC RBC Hgb Hct MCH RDW [place] % (Auto) Eos % (Auto) Lymph # APTT D-Dimer Heparin Anti-Xa Level POC ABG pH POC ABG pCO2 48.4 H POC ABG pO2 77 L Potassium Chloride BUN Creatinine Glucose POC Glucose 46 L 65 L Hemoglobin A1c Lactic Acid Calcium Magnesium Alkaline Phosphatase Total Creatine Kinase CK-MB (CK-2) CK-MB (CK-2) Rel Index Troponin T NT-Pro-B Natriuret Pep Total Protein Albumin LDL Cholesterol Direct HDL Cholesterol PTH Intact Urine Creatinine Urine Total Protein 10/15/18 10/15/18 10/16/18 13:24 21:23 06:25 WBC RBC Hgb Hct MCH RDW [place] % (Auto) Eos % (Auto) Lymph # APTT D-Dimer Heparin Anti-Xa Level POC ABG pH POC ABG pCO2 POC ABG pO2 Potassium Chloride 107.7 H BUN 53 H Creatinine 2.2 H Glucose 61 L POC Glucose 106 H 160 H Hemoglobin A1c Lactic Acid Calcium Magnesium Alkaline Phosphatase Total Creatine Kinase CK-MB (CK-2) CK-MB (CK-2) Rel Index Troponin T NT-Pro-B Natriuret Pep Total Protein Albumin LDL Cholesterol Direct HDL Cholesterol PTH Intact Urine Creatinine Urine Total Protein 10/16/18 10/16/18 10/17/18 06:49 21:42 05:22 WBC RBC Hgb 7.6 L Hct 23.1 L MCH RDW [place] % (Auto) Eos % (Auto) Lymph # APTT D-Dimer Heparin Anti-Xa Level POC ABG pH POC ABG pCO2 POC ABG pO2 Potassium Chloride BUN Creatinine Glucose POC Glucose 51 L 153 H Hemoglobin A1c Lactic Acid Calcium Magnesium Alkaline Phosphatase Total Creatine Kinase CK-MB (CK-2) CK-MB (CK-2) Rel Index Troponin T NT-Pro-B Natriuret Pep Total Protein Albumin LDL Cholesterol Direct HDL Cholesterol PTH Intact Urine Creatinine Urine Total Protein 10/17/18 10/17/18 05:22 05:22 WBC RBC Hgb Hct MCH RDW [place] % (Auto) Eos % (Auto) Lymph # APTT D-Dimer Heparin Anti-Xa Level POC ABG pH POC ABG pCO2 POC ABG pO2 Potassium Chloride BUN 59 H Creatinine 2.2 H Glucose 111 H POC Glucose Hemoglobin A1c Lactic Acid Calcium Magnesium Alkaline Phosphatase Total Creatine Kinase CK-MB (CK-2) CK-MB (CK-2) Rel Index Troponin T NT-Pro-B Natriuret Pep Total Protein Albumin LDL Cholesterol Direct HDL Cholesterol PTH Intact 152.8 H Urine Creatinine Urine Total Protein Allied health notes reviewed: nursing
--- NOTE | 2018-10-17 09:50 | Progress Note ---
Assessment and Plan 1. Acute kidney injury: MAXIMO likely Vasomotor / hemodynamic mediated in the setting of hypotension. Patient received hemodialysis on 10/11/2018 for continued decline in the Renal function and hyperkalemia. Gradual increase in BUN and creatinine level noted. 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 Monitor renal function and GRAIN II [employer] needs. 2. FEN: Volume overload, Isolated UF today. Continue IV Lasix. 3. CHF exacerbation: Was on Dobutamine drip. 4. Hypotension: BP is better. 5. : Miranda catheter. 6. Anemia: Monitor. Subjective Date of service: 10/17/18 Principal diagnosis: Severe Sepsis with Shock; Acute encephalopathy; MAXIMO; Diabetes II; CMOP Interval history: Patient was seen and examined at the bedside. Objective - Vital Signs Vital signs: Vital Signs - 12hr 10/16/18 10/17/18 10/17/18 22:27 00:00 00:16 Temperature 98.4 F Pulse Rate 70 70 71 Respiratory 17 Rate Blood Pressure 127/70 140/75 O2 Sat by Pulse 97 Oximetry 10/17/18 10/17/18 04:00 04:57 Temperature 97.3 F L Pulse Rate 74 74 Respiratory 17 Rate Blood Pressure 128/71 O2 Sat by Pulse 98 Oximetry - General Appearance General appearance: well-developed, well-nourished, appears stated age, obese, other (not in distress) EENT: ATNC, PERRL, hearing intact Neck: supple Respiratory: Present: Clear to Ascultation Cardiology: regular, S1S2, no murmurs Gastrointestinal: normoactive bowel sounds, no tenderness, no distended, obese, other (scrotal swelling noted) Neurologic: other (able to move extremities, tremors noted) Musculoskeletal: other (muscle wasting noted, 2+ edema of both LEs noted) - Lab 10/17/18 05:22 10/17/18 05:22 Most recent lab results Calcium 8.4 mg/dL (8.4-10.2) 10/17/18 05:22 Phosphorus 4.40 mg/dL (2.5-4.5) 10/14/18 06:06 Magnesium 2.40 mg/dL (1.7-2.3) H 10/14/18 06:06 Urine Creatinine 118.6 mg/dL (0.1-20.0) H 10/10/18 22:30 Urine Sodium 35 mmol/L 10/10/18 22:30 Urine Total Protein 152 mg/dL (5-11.8) H 10/10/18 22:30 Medications & Allergies - Medications Allergies/Adverse Reactions: Allergies No Known Allergies Allergy (Unverified 10/09/18 10:44) Home Medications: Home Medications Medication Instructions Recorded Confirmed Last Taken Type Carvedilol [Coreg] 3.125 mg PO BID 10/09/18 10/09/[address] [DepaKOTE DR] 500 mg PO BID 10/09/18 10/09/18 Unknown History Ferrous Sulfate [Feosol] 325 mg PO QDAY 10/09/18 10/09/18 Unknown History Furosemide [Lasix] 80 mg PO DAILY 10/09/18 10/09/18 Unknown History Gabapentin [Neurontin] 300 mg PO Q8HR 10/09/18 10/09/18 Unknown History ISOSORBIDE MONOnitrate [Imdur ER] 30 mg PO DAILY 10/09/18 10/09/18 Unknown History Insulin Glargine,Hum.rec.anlog 40 units SQ QHS 10/09/18 10/09/18 Unknown History [Lantus] Magnesium Oxide [Mag-Ox] 400 mg PO DAILY 10/09/18 10/09/18 Unknown History Simvastatin [Zocor TAB] 20 mg PO QHS 10/09/18 10/09/18 Unknown History Sulfamethoxazole/Trimethoprim 1 each PO BID 10/09/18 10/09/18 Unknown History [Bactrim DS TAB] glipiZIDE [Glipizide] 10 mg PO DAILY 10/09/18 10/09/18 Unknown History hydrALAZINE [Apresoline TAB] 100 mg PO BID 10/09/18 10/09/18 Unknown History risperiDONE [RisperDAL] 1 mg PO QHS 10/09/18 10/09/18 Unknown History Active Medications: Generic Name Dose Route Start Last Admin Trade Name Freq PRN Reason Stop Dose Admin Albumin Human 25 gm 10/11/18 09:35 Alburx 25% (Albumin) IV JUDE PRN Hypotension Aspirin 325 mg 10/10/18 10:00 10/16/18 10:53 Aspirin PO 325 mg QDAY JAMIL Administration Carvedilol 6.25 mg 10/14/18 22:00 10/16/18 22:27 Coreg PO 6.25 mg BID JAMIL Administration Dextrose 50 ml 10/10/18 11:03 10/16/18 07:14 D50w (25gm) Syringe IV 50 ml PRN PRN Administration Hypoglycemia Divalproex Sodium 500 mg 10/09/18 22:00 10/16/18 22:[address] PO 500 mg BID JAMIL Administration Famotidine 20 mg 10/10/18 12:00 10/16/18 10:56 Pepcid PO 20 mg DAILY JAMIL Administration Ferrous Sulfate 325 mg 10/10/18 10:00 10/16/18 10:53 Feosol PO 325 mg QDAY JAMIL Administration Furosemide 80 mg 10/16/18 18:00 10/17/18 06:58 Lasix IV 80 mg 0600,1800 JAMIL Administration Gabapentin 300 mg 10/15/18 10:00 10/16/18 11:08 Neurontin PO Not Given DAILY JAMIL Heparin Sodium (Porcine) 5,000 unit 10/11/18 15:00 10/17/18 06:58 Heparin SUB-Q 5,000 unit Q8HR JAMIL Administration Hydralazine HCl 20 mg 10/13/18 18:43 10/13/18 20:00 Apresoline IV 20 mg Q4HR PRN Administration Increased Blood Pressure Sodium Chloride 100 mls @ 999 mls/hr 10/16/18 11:52 Nacl 0.9% IV JUDE PRN Hypotension Insulin Human Regular 0 units 10/10/18 11:30 10/17/18 09:14 Humulin R SUB-Q Not Given ACHS [facility] Protocol Levofloxacin 500 mg 10/12/18 10:00 10/16/18 10:56 Levaquin PO 10/18/18 10:01 500 mg Q48HR JAMIL Administration Pravastatin Sodium 40 mg 10/09/18 22:00 10/16/18 22:27 Pravachol PO 40 mg QHS JAMIL Administration Risperidone 1 mg 10/09/18 22:00 10/16/18 22:27 Risperdal PO 1 mg QHS JAMIL Administration Sodium Chloride 10 ml 10/09/18 13:00 10/16/18 22:28 Sodium Chloride Flush Syringe 10 Ml IV 10 ml BID JAMIL Administration Sodium Chloride 10 ml 10/09/18 13:00 Sodium Chloride Flush Syringe 10 Ml IV PRN PRN LINE FLUSH
[2018-10-17] MEDS ORDERED: NACL 0.9% 100 ML IV PRN (10:11)
[2018-10-17] MEDS: ASPIRIN PO SCH (14:01)
[2018-10-17] MEDS: PEPCID PO SCH (14:02)
[2018-10-17] MEDS: COREG PO SCH ×2 (14:02→21:45)
[2018-10-17] MEDS: FEOSOL PO SCH (14:02)
[2018-10-17] MEDS: NEURONTIN PO SCH (14:02)
[2018-10-17] MEDS: SODIUM CHLORIDE FLUSH SYRINGE 10 ML IV SCH ×2 (14:05→21:45)
[2018-10-17] MEDS ORDERED: XYLOCAINE 1% 20 mL INFILTRATI ONE (15:03)
[2018-10-17] MEDS ORDERED: NACL 0.9 (PRIMING MACHINE ONLY DIALYSIS) MC ONE (17:46)
[2018-10-17] MEDS: MILK OF MAGNESIA PO PRN (19:06)
[2018-10-17 21:31] LABS: ANA Screen, IFA Negative (Negative)
[2018-10-17] MEDS: PRAVACHOL PO SCH (21:45)
[2018-10-17] MEDS: RisperDAL PO SCH (21:45)
[2018-10-18] MEDS: HEPARIN SUB-Q SCH ×3 (05:00→22:05)
[2018-10-18] MEDS: LASIX IV SCH ×2 (05:03→18:46)
--- NOTE | 2018-10-18 08:21 | Ultrasound Report ---
ULTRASOUND CHEST History: Bilateral pleural effusions, performed right sided thoracentesis. Description of procedure: This was scheduled as an ultrasound guided right thoracentesis. Initial scans of the right side of the chest demonstrate near resolution of the right pleural effusion since 10/15/18. The right pleural effusion has decreased from 300 cc to 31 cc. The left side of the chest was also scanned. The left pleural effusion has decreased from 421 cc to 112 cc. No safe radiographic window for ultrasound guided right thoracentesis. Right thoracentesis was canceled. Impression: Significant improvement in the pleural effusions as outlined above.
[2018-10-18] MEDS: COREG PO SCH ×2 (09:17→22:05)
[2018-10-18] MEDS: LEVAQUIN PO SCH (09:17)
[2018-10-18] MEDS: ASPIRIN PO SCH (09:17)
[2018-10-18] MEDS: HumuLIN R SUB-Q SCH ×4 (09:18→22:05)
[2018-10-18] MEDS: SODIUM CHLORIDE FLUSH SYRINGE 10 ML IV SCH ×2 (09:18→22:06)
[2018-10-18] MEDS: FEOSOL PO SCH (09:20)
[2018-10-18] MEDS: NEURONTIN PO SCH (09:20)
[2018-10-18 09:42] LABS: Calcium 8.9 mg/dL (8.4-10.2)
--- NOTE | 2018-10-18 10:47 | Progress Note ---
Assessment and Plan Severe Sepsis syndrome. Shock (cardiogenic versus septic) Acute encephalopathy. Possible seizures. History of diabetes CMOP Leukopenia. Anemia that is normocytic. Acute hypercapnic respiratory acidosis. Hyperkalemia. Acute kidney injury. Non-ST elevation myocardial infarction. Hypoglycemia. Possible peripheral vascular disease. Obesity. Bilateral moderate pleural effusion, did not require drainage - supplemental oxygen to keep sats > 90% - BIPAP qhs possible sleep apnea - PT/OT as tolerated - aspiration precautions - prn bronchodilators with pulmonary hygiene per RT -cardio-protective measures -continue all current care Stable from pulmonary standpoint for discharge planning. Needs outpatient pulmonary follow up on discharge Subjective Date of service: 10/18/18 Principal diagnosis: Severe Sepsis with Shock; Acute encephalopathy; MAXIMO; Diabetes II; CMOP Interval history: Patient is seen today for: Severe Sepsis syndrome; Shock (cardiogenic versus septic); Acute encephalopathy; Possible seizures; History of diabetes; CMOP Seen and examined at bedside; 24hour events reviewed; nursing and respiratory care staff consulted; no adverse overnight events reported to me; resting peacefully in bed; denies acute chest pains or palpitations; no chest pain, no shortness of breath. Bilateral pleural effusions with spontaneous improvement of right pleural effusion from 300 mL- 31 ml and Left pleural effusion decreased from 421 mL-112 mL No indication for thoracentesis Objective Vital Signs - 12hr 10/17/18 10/18/18 10/18/18 23:47 04:47 05:07 Temperature 98.0 F 98.0 F Pulse Rate 78 74 77 Respiratory 18 18 Rate Blood Pressure 104/72 168/89 O2 Sat by Pulse 96 97 Oximetry 10/18/18 08:46 Temperature 98.3 F Pulse Rate 65 Respiratory 18 Rate Blood Pressure 177/88 O2 Sat by Pulse 99 Oximetry Constitutional: no acute distress, alert, other (middle aged AAM, normocephalic and atraumatic with normal respiratory effort) Eyes: non-icteric ENT: oropharynx moist Neck: supple, no lymphadenopathy, no JVD Effort: normal Ascultation: Bilateral: diminished breath sounds, rales (bases) Percussion: Bilateral: not dull Cardiovascular: regular rate and rhythm Gastrointestinal: normoactive bowel sounds, soft, non-tender, non-distended Integumentary: rash (feet) Extremities: no cyanosis, pulses normal, no ischemia or petechiae, edema (1+) Neurologic: normal mental status, non-focal exam, pupils equal and round, motor strength normal and, other (sensory numbness to feet) Psychiatric: mood appropriate, affect normal, other CBC and BMP: 10/17/18 05:22 10/18/18 08:19 ABG, PT/INR, D-dimer: ABG POC ABG pH 7.359 (7.35-7.45) 10/15/18 13:21 POC ABG pCO2 48.4 (35-45) H 10/15/18 13:21 POC ABG pO2 77 (80-105) L 10/15/18 13:21 POC ABG HCO3 27.3 10/15/18 13:21 POC ABG Total CO2 29 10/15/18 13:21 POC ABG O2 Sat 95 10/15/18 13:21 PT/INR, D-dimer PT 14.0 Sec. (12.2-14.9) 10/17/18 Unknown INR 1.04 (0.87-1.13) 10/17/18 Unknown D-Dimer 927.57 ng/mlDDU (0-234) H 10/10/18 13:36 Abnormal lab findings: Abnormal Labs 10/09/18 10/09/18 10/09/18 11:22 11:22 11:22 WBC 3.3 L RBC 3.03 L Hgb 8.4 L Hct 25.8 L MCH RDW 18.7 H [place] % (Auto) 12.1 H Eos % (Auto) 4.6 H Lymph # 0.5 L APTT 42.8 H D-Dimer Heparin Anti-Xa Level POC ABG pH POC ABG pCO2 POC ABG pO2 Potassium 5.2 H Chloride 108.2 H BUN 49 H Creatinine 1.9 H Glucose 153 H POC Glucose Hemoglobin A1c Lactic Acid Calcium Magnesium Alkaline Phosphatase Total Creatine Kinase 481 H CK-MB (CK-2) 20.5 H CK-MB (CK-2) Rel Index 4.2 H Troponin T 0.153 H* NT-Pro-B Natriuret Pep 2963 H Total Protein Albumin LDL Cholesterol Direct 49 L HDL Cholesterol 73 H PTH Intact Urine Creatinine Urine Total Protein 10/09/18 10/09/18 10/09/18 13:43 14:25 14:25 WBC RBC Hgb 8.2 L Hct 26.2 L MCH RDW [place] % (Auto) Eos % (Auto) Lymph # APTT 42.4 H D-Dimer Heparin Anti-Xa Level POC ABG pH POC ABG pCO2 POC ABG pO2 Potassium Chloride BUN Creatinine Glucose POC Glucose 167 H Hemoglobin A1c Lactic Acid Calcium Magnesium Alkaline Phosphatase Total Creatine Kinase CK-MB (CK-2) CK-MB (CK-2) Rel Index Troponin T NT-Pro-B Natriuret Pep Total Protein Albumin LDL Cholesterol Direct HDL Cholesterol PTH Intact Urine Creatinine Urine Total Protein 10/09/18 10/09/18 10/09/18 17:28 20:56 21:23 WBC RBC Hgb Hct MCH RDW [place] % (Auto) Eos % (Auto) Lymph # APTT D-Dimer Heparin Anti-Xa Level 0.28 L POC ABG pH POC ABG pCO2 POC ABG pO2 Potassium Chloride BUN Creatinine Glucose POC Glucose Hemoglobin A1c Lactic Acid Calcium Magnesium Alkaline Phosphatase Total Creatine Kinase CK-MB (CK-2) CK-MB (CK-2) Rel Index Troponin T 0.136 H* 0.139 H* NT-Pro-B Natriuret Pep Total Protein Albumin LDL Cholesterol Direct HDL Cholesterol PTH Intact Urine Creatinine Urine Total Protein 10/10/18 10/10/18 10/10/18 00:10 05:00 05:00 WBC 3.3 L RBC 2.99 L Hgb 8.2 L Hct 25.9 L MCH 27 L RDW 19.2 H [place] % (Auto) 13.2 H Eos % (Auto) 5.8 H Lymph # 0.5 L APTT D-Dimer Heparin Anti-Xa Level POC ABG pH POC ABG pCO2 POC ABG pO2 Potassium 5.6 H Chloride 110.8 H BUN 50 H Creatinine 2.2 H Glucose 52 L POC Glucose 60 L Hemoglobin A1c Lactic Acid Calcium 8.1 L Magnesium Alkaline Phosphatase Total Creatine Kinase CK-MB (CK-2) CK-MB (CK-2) Rel Index Troponin T NT-Pro-B Natriuret Pep Total Protein Albumin LDL Cholesterol Direct HDL Cholesterol PTH Intact Urine Creatinine Urine Total Protein 10/10/18 10/10/18 10/10/18 05:00 06:11 11:30 WBC RBC Hgb Hct MCH RDW [place] % (Auto) Eos % (Auto) Lymph # APTT D-Dimer Heparin Anti-Xa Level POC ABG pH POC ABG pCO2 POC ABG pO2 Potassium Chloride BUN Creatinine Glucose POC Glucose 57 L 48 L Hemoglobin A1c 8.2 H Lactic Acid Calcium Magnesium Alkaline Phosphatase Total Creatine Kinase CK-MB (CK-2) CK-MB (CK-2) Rel Index Troponin T NT-Pro-B Natriuret Pep Total Protein Albumin LDL Cholesterol Direct HDL Cholesterol PTH Intact Urine Creatinine Urine Total Protein 10/10/18 10/10/18 10/10/18 12:22 13:36 13:36 WBC RBC Hgb Hct MCH RDW [place] % (Auto) Eos % (Auto) Lymph # APTT D-Dimer 927.57 H Heparin Anti-Xa Level POC ABG pH 7.286 L POC ABG pCO2 47.3 H POC ABG pO2 65 L Potassium Chloride BUN Creatinine Glucose POC Glucose Hemoglobin A1c Lactic Acid 0.60 L Calcium Magnesium Alkaline Phosphatase Total Creatine Kinase CK-MB (CK-2) CK-MB (CK-2) Rel Index Troponin T NT-Pro-B Natriuret Pep Total Protein Albumin LDL Cholesterol Direct HDL Cholesterol PTH Intact Urine Creatinine Urine Total Protein 10/10/18 10/10/18 10/10/18 16:42 21:12 22:30 WBC RBC Hgb Hct MCH RDW [place] % (Auto) Eos % (Auto) Lymph # APTT D-Dimer Heparin Anti-Xa Level POC ABG pH POC ABG pCO2 POC ABG pO2 Potassium Chloride BUN Creatinine Glucose POC Glucose 122 H 119 H Hemoglobin A1c Lactic Acid Calcium Magnesium Alkaline Phosphatase Total Creatine Kinase CK-MB (CK-2) CK-MB (CK-2) Rel Index Troponin T NT-Pro-B Natriuret Pep Total Protein Albumin LDL Cholesterol Direct HDL Cholesterol PTH Intact Urine Creatinine 118.6 H Urine Total Protein 152 H 10/11/18 10/11/18 10/11/18 04:31 04:31 13:15 WBC RBC Hgb 8.7 L Hct 27.9 L MCH RDW [place] % (Auto) Eos % (Auto) Lymph # APTT D-Dimer Heparin Anti-Xa Level POC ABG pH POC ABG pCO2 POC ABG pO2 Potassium 6.6 H* 6.4 H* Chloride BUN 55 H Creatinine 2.9 H Glucose POC Glucose Hemoglobin A1c Lactic Acid Calcium 7.6 L Magnesium Alkaline Phosphatase Total Creatine Kinase CK-MB (CK-2) CK-MB (CK-2) Rel Index Troponin T NT-Pro-B Natriuret Pep Total Protein Albumin LDL Cholesterol Direct HDL Cholesterol PTH Intact Urine Creatinine Urine Total Protein 10/11/18 10/11/18 10/12/18 20:45 22:37 04:25 WBC RBC Hgb Hct MCH RDW [place] % (Auto) Eos % (Auto) Lymph # APTT D-Dimer Heparin Anti-Xa Level POC ABG pH POC ABG pCO2 POC ABG pO2 Potassium Chloride BUN 37 H 38 H Creatinine 2.4 H 2.3 H Glucose POC Glucose 117 H Hemoglobin A1c Lactic Acid Calcium 7.5 L 7.6 L Magnesium Alkaline Phosphatase 261 H Total Creatine Kinase CK-MB (CK-2) CK-MB (CK-2) Rel Index Troponin T NT-Pro-B Natriuret Pep Total Protein 6.2 L Albumin 3.0 L LDL Cholesterol Direct HDL Cholesterol PTH Intact Urine Creatinine Urine Total Protein 10/12/18 10/12/18 10/13/18 10:02 21:33 03:28 WBC RBC Hgb 7.6 L 7.7 L Hct 24.1 L 23.8 L MCH RDW [place] % (Auto) Eos % (Auto) Lymph # APTT D-Dimer Heparin Anti-Xa Level POC ABG pH POC ABG pCO2 POC ABG pO2 Potassium Chloride BUN Creatinine Glucose POC Glucose 109 H Hemoglobin A1c Lactic Acid Calcium Magnesium Alkaline Phosphatase Total Creatine Kinase CK-MB (CK-2) CK-MB (CK-2) Rel Index Troponin T NT-Pro-B Natriuret Pep Total Protein Albumin LDL Cholesterol Direct HDL Cholesterol PTH Intact Urine Creatinine Urine Total Protein 10/13/18 10/13/18 10/13/18 03:28 08:27 15:04 WBC RBC Hgb Hct MCH RDW [place] % (Auto) Eos % (Auto) Lymph # APTT D-Dimer Heparin Anti-Xa Level POC ABG pH POC ABG pCO2 POC ABG pO2 Potassium Chloride BUN 38 H Creatinine 1.9 H Glucose POC Glucose 136 H 160 H Hemoglobin A1c Lactic Acid Calcium 8.3 L Magnesium Alkaline Phosphatase Total Creatine Kinase CK-MB (CK-2) CK-MB (CK-2) Rel Index Troponin T NT-Pro-B Natriuret Pep Total Protein Albumin LDL Cholesterol Direct HDL Cholesterol PTH Intact Urine Creatinine Urine Total Protein 10/13/18 10/13/18 10/14/18 16:53 23:06 06:06 WBC RBC Hgb Hct MCH RDW [place] % (Auto) Eos % (Auto) Lymph # APTT D-Dimer Heparin Anti-Xa Level POC ABG pH POC ABG pCO2 POC ABG pO2 Potassium Chloride 107.7 H BUN 39 H Creatinine 1.8 H Glucose 116 H POC Glucose 161 H 213 H Hemoglobin A1c Lactic Acid Calcium Magnesium 2.40 H Alkaline Phosphatase Total Creatine Kinase CK-MB (CK-2) CK-MB (CK-2) Rel Index Troponin T NT-Pro-B Natriuret Pep Total Protein Albumin LDL Cholesterol Direct HDL Cholesterol PTH Intact Urine Creatinine Urine Total Protein 10/14/18 10/14/18 10/14/18 06:34 11:01 13:50 WBC RBC Hgb 7.8 L Hct 24.8 L MCH RDW [place] % (Auto) Eos % (Auto) Lymph # APTT D-Dimer Heparin Anti-Xa Level POC ABG pH POC ABG pCO2 POC ABG pO2 Potassium Chloride BUN Creatinine Glucose POC Glucose 118 H 67 L Hemoglobin A1c Lactic Acid Calcium Magnesium Alkaline Phosphatase Total Creatine Kinase CK-MB (CK-2) CK-MB (CK-2) Rel Index Troponin T NT-Pro-B Natriuret Pep Total Protein Albumin LDL Cholesterol Direct HDL Cholesterol PTH Intact Urine Creatinine Urine Total Protein 10/14/18 10/15/18 10/15/18 21:37 05:39 05:39 WBC RBC Hgb 7.6 L Hct 23.5 L MCH RDW [place] % (Auto) Eos % (Auto) Lymph # APTT D-Dimer Heparin Anti-Xa Level POC ABG pH POC ABG pCO2 POC ABG pO2 Potassium Chloride BUN 45 H Creatinine 2.1 H Glucose 59 L POC Glucose 125 H Hemoglobin A1c Lactic Acid Calcium 8.3 L Magnesium Alkaline Phosphatase Total Creatine Kinase CK-MB (CK-2) CK-MB (CK-2) Rel Index Troponin T NT-Pro-B Natriuret Pep Total Protein Albumin LDL Cholesterol Direct HDL Cholesterol PTH Intact Urine Creatinine Urine Total Protein 10/15/18 10/15/18 10/15/18 06:27 07:48 13:21 WBC RBC Hgb Hct MCH RDW [place] % (Auto) Eos % (Auto) Lymph # APTT D-Dimer Heparin Anti-Xa Level POC ABG pH POC ABG pCO2 48.4 H POC ABG pO2 77 L Potassium Chloride BUN Creatinine Glucose POC Glucose 46 L 65 L Hemoglobin A1c Lactic Acid Calcium Magnesium Alkaline Phosphatase Total Creatine Kinase CK-MB (CK-2) CK-MB (CK-2) Rel Index Troponin T NT-Pro-B Natriuret Pep Total Protein Albumin LDL Cholesterol Direct HDL Cholesterol PTH Intact Urine Creatinine Urine Total Protein 10/15/18 10/15/18 10/16/18 13:24 21:23 06:25 WBC RBC Hgb Hct MCH RDW [place] % (Auto) Eos % (Auto) Lymph # APTT D-Dimer Heparin Anti-Xa Level POC ABG pH POC ABG pCO2 POC ABG pO2 Potassium Chloride 107.7 H BUN 53 H Creatinine 2.2 H Glucose 61 L POC Glucose 106 H 160 H Hemoglobin A1c Lactic Acid Calcium Magnesium Alkaline Phosphatase Total Creatine Kinase CK-MB (CK-2) CK-MB (CK-2) Rel Index Troponin T NT-Pro-B Natriuret Pep Total Protein Albumin LDL Cholesterol Direct HDL Cholesterol PTH Intact Urine Creatinine Urine Total Protein 10/16/18 10/16/18 10/17/18 06:49 21:42 05:22 WBC RBC Hgb 7.6 L Hct 23.1 L MCH RDW [place] % (Auto) Eos % (Auto) Lymph # APTT D-Dimer Heparin Anti-Xa Level POC ABG pH POC ABG pCO2 POC ABG pO2 Potassium Chloride BUN Creatinine Glucose POC Glucose 51 L 153 H Hemoglobin A1c Lactic Acid Calcium Magnesium Alkaline Phosphatase Total Creatine Kinase CK-MB (CK-2) CK-MB (CK-2) Rel Index Troponin T NT-Pro-B Natriuret Pep Total Protein Albumin LDL Cholesterol Direct HDL Cholesterol PTH Intact Urine Creatinine Urine Total Protein 10/17/18 10/17/18 10/17/18 05:22 05:22 12:17 WBC RBC Hgb Hct MCH RDW [place] % (Auto) Eos % (Auto) Lymph # APTT D-Dimer Heparin Anti-Xa Level POC ABG pH POC ABG pCO2 POC ABG pO2 Potassium Chloride BUN 59 H Creatinine 2.2 H Glucose 111 H POC Glucose 130 H Hemoglobin A1c Lactic Acid Calcium Magnesium Alkaline Phosphatase Total Creatine Kinase CK-MB (CK-2) CK-MB (CK-2) Rel Index Troponin T NT-Pro-B Natriuret Pep Total Protein Albumin LDL Cholesterol Direct HDL Cholesterol PTH Intact 152.8 H Urine Creatinine Urine Total Protein 10/17/18 10/18/18 10/18/18 21:32 06:36 08:19 WBC RBC Hgb Hct MCH RDW [place] % (Auto) Eos % (Auto) Lymph # APTT D-Dimer Heparin Anti-Xa Level POC ABG pH POC ABG pCO2 POC ABG pO2 Potassium 5.6 H Chloride 107.3 H BUN 62 H Creatinine 2.3 H Glucose 201 H POC Glucose 402 H 217 H Hemoglobin A1c Lactic Acid Calcium Magnesium Alkaline Phosphatase Total Creatine Kinase CK-MB (CK-2) CK-MB (CK-2) Rel Index Troponin T NT-Pro-B Natriuret Pep Total Protein Albumin LDL Cholesterol Direct HDL Cholesterol PTH Intact Urine Creatinine Urine Total Protein Allied health notes reviewed: nursing
[2018-10-18] MEDS: PEPCID PO SCH (11:15)
[2018-10-18 11:25] LABS: Myeloperoxidase Antibody <1.0 AI (<1.0)
--- NOTE | 2018-10-18 11:29 | Progress Note ---
Assessment and Plan 1. Acute kidney injury: MAXIMO likely Vasomotor / hemodynamic mediated in the setting of hypotension. Patient received hemodialysis on 10/11/2018 due to continued decline in the Renal function and hyperkalemia. Gradual increase in BUN and creatinine level noted. 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 Hemodialysis today. 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 2. FEN: Volume overload, improving. UF with HD today Hyperkalemia, HD today. Continue IV Lasix. 3. CHF exacerbation: Was on Dobutamine drip. 4. Hypotension: BP is better. 5. : Miranda catheter. 6. Anemia: Monitor. Subjective Date of service: 10/18/18 Principal diagnosis: Severe Sepsis with Shock; Acute encephalopathy; MAXIMO; Diabetes II; CMOP Interval history: Patient was seen and examined at the bedside. Objective - Vital Signs Vital signs: Vital Signs - 12hr 10/17/18 10/18/18 10/18/18 23:47 04:47 05:07 Temperature 98.0 F 98.0 F Pulse Rate 78 74 77 Respiratory 18 18 Rate Blood Pressure 104/72 168/89 O2 Sat by Pulse 96 97 Oximetry 10/18/18 08:46 Temperature 98.3 F Pulse Rate 65 Respiratory 18 Rate Blood Pressure 177/88 O2 Sat by Pulse 99 Oximetry - General Appearance General appearance: well-developed, well-nourished, appears stated age, obese, other (not in distress) EENT: ATNC Neck: supple Respiratory: Present: Clear to Ascultation Cardiology: regular, S1S2, no murmurs Gastrointestinal: normoactive bowel sounds, no tenderness, no distended Integumentary: chronic venous stasis Neurologic: other (tremors noted, conversing, able to move extremities) Musculoskeletal: other (1+ edema of both LEs noted) - Lab 10/17/18 05:22 10/18/18 08:19 Most recent lab results Calcium 8.9 mg/dL (8.4-10.2) 10/18/18 08:19 Phosphorus 4.40 mg/dL (2.5-4.5) 10/14/18 06:06 Magnesium 2.40 mg/dL (1.7-2.3) H 10/14/18 06:06 Urine Creatinine 118.6 mg/dL (0.1-20.0) H 10/10/18 22:30 Urine Sodium 35 mmol/L 10/10/18 22:30 Urine Total Protein 152 mg/dL (5-11.8) H 10/10/18 22:30 Medications & Allergies - Medications Allergies/Adverse Reactions: Allergies No Known Allergies Allergy (Unverified 10/09/18 10:44) Home Medications: Home Medications Medication Instructions Recorded Confirmed Last Taken Type Carvedilol [Coreg] 3.125 mg PO BID 10/09/18 10/09/[address] [DepaKOTE DR] 500 mg PO BID 10/09/18 10/09/18 Unknown History Ferrous Sulfate [Feosol] 325 mg PO QDAY 10/09/18 10/09/18 Unknown History Furosemide [Lasix] 80 mg PO DAILY 10/09/18 10/09/18 Unknown History Gabapentin [Neurontin] 300 mg PO Q8HR 10/09/18 10/09/18 Unknown History ISOSORBIDE MONOnitrate [Imdur ER] 30 mg PO DAILY 10/09/18 10/09/18 Unknown History Insulin Glargine,Hum.rec.anlog 40 units SQ QHS 10/09/18 10/09/18 Unknown History [Lantus] Magnesium Oxide [Mag-Ox] 400 mg PO DAILY 10/09/18 10/09/18 Unknown History Simvastatin (Nf) [Zocor TAB] 20 mg PO QHS 10/09/18 10/09/18 Unknown History Sulfamethoxazole/Trimethoprim 1 each PO BID 10/09/18 10/09/18 Unknown History [Bactrim DS TAB] glipiZIDE [Glipizide] 10 mg PO DAILY 10/09/18 10/09/18 Unknown History hydrALAZINE [Apresoline TAB] 100 mg PO BID 10/09/18 10/09/18 Unknown History risperiDONE [RisperDAL] 1 mg PO QHS 10/09/18 10/09/18 Unknown History Active Medications: Generic Name Dose Route Start Last Admin Trade Name Freq PRN Reason Stop Dose Admin Albumin Human 25 gm 10/11/18 09:35 Alburx 25% (Albumin) IV JUDE PRN Hypotension Aspirin 325 mg 10/10/18 10:00 10/18/18 09:17 Aspirin PO 325 mg QDAY JAMIL Administration Carvedilol 6.25 mg 10/14/18 22:00 10/18/18 09:17 Coreg PO 6.25 mg BID JAMIL Administration Dextrose 50 ml 10/10/18 11:03 10/16/18 07:14 D50w (25gm) Syringe IV 50 ml PRN PRN Administration Hypoglycemia Divalproex Sodium 500 mg 10/09/18 22:00 10/18/18 09:[address] PO 500 mg BID JAMIL Administration Famotidine 20 mg 10/10/18 12:00 10/18/18 11:15 Pepcid PO 20 mg DAILY JAMIL Administration Ferrous Sulfate 325 mg 10/10/18 10:00 10/18/18 09:20 Feosol PO Not Given QDAY JAMIL Furosemide 80 mg 10/16/18 18:00 10/18/18 05:03 Lasix IV 80 mg 0600,1800 JAMIL Administration Gabapentin 300 mg 10/15/18 10:00 10/18/18 09:20 Neurontin PO Not Given DAILY JAMIL Heparin Sodium (Porcine) 5,000 unit 10/11/18 15:00 10/18/18 05:00 Heparin SUB-Q 5,000 unit Q8HR JAMIL Administration Hydralazine HCl 20 mg 10/13/18 18:43 10/13/18 20:00 Apresoline IV 20 mg Q4HR PRN Administration Increased Blood Pressure Sodium Chloride 100 mls @ 999 mls/hr 10/17/18 10:11 Nacl 0.9% IV JUDE PRN Hypotension Insulin Human Isoph/Insulin Regular 10 unit 10/18/18 08:30 10/18/18 11:15 Humulin 70/30 SUB-Q 10 unit BIDDIAB JAMIL Administration Insulin Human Regular 0 units 10/10/18 11:30 10/18/18 09:18 Humulin R SUB-Q 4 units ACHS JAMIL Administration Protocol Magnesium Hydroxide 30 ml 10/17/18 14:28 10/17/18 19:06 Milk Of Magnesia PO 30 ml QDAY PRN Administration Constipation Pravastatin Sodium 40 mg 10/09/18 22:00 10/17/18 21:45 Pravachol PO 40 mg QHS JAMIL Administration Risperidone 1 mg 10/09/18 22:00 10/17/18 21:45 Risperdal PO 1 mg QHS JAMIL Administration Sodium Chloride 10 ml 10/09/18 13:00 10/18/18 09:18 Sodium Chloride Flush Syringe 10 Ml IV 10 ml BID JAMIL Administration Sodium Chloride 10 ml 10/09/18 13:00 Sodium Chloride Flush Syringe 10 Ml IV PRN PRN LINE FLUSH
--- NOTE | 2018-10-18 11:41 | Progress Note ---
Assessment and Plan Assessment and plan: --Bilateral moderate pleural effusion; Bilateral pleural effusions: Spontaneous improvement of right pleural effusion from 300 mL- 31 mL Left pleural effusion decreased from 421 mL-112 mL No indication for thoracentesis --Altered mental status/Acute encephalopathy ; present on admission head CT with no acute process, slightly improved Patient is confused this morning, restraine for safety. As needed --MAXIMO / hyperkalemia : on hemodialysis as needed Nephrology following --Hypotension- s/p vasopressor support currently hypertensive. We'll --NSTEMI type II- s/p heparin drip, obtained 2d echo, cardiology evaluated and signed off Outpatient follow-up for further evaluation and management --Acute on chronic systolic CHF: EF 35-40%, cont aspirin/statin, monitor daily wt, ins/os, restrict fluid --Sinus bradycardia -resolved, avoid beta blockers --Anemia, chronic kidney disease; closely monitor --HTN, continue current antihypertensives and when necessary medications --DM, cont SSI, Accu-Cheks, ADA diet, insulin as needed --HLP, cont statin -- h/o psych disorder, supportive care --Extensive scrotal swelling, ultrasound; thick skin, testis and epididymis normal --DC planning for case management. Disposition-per Nephrology and pulmonary Plan of care is reviewed with the patient's nurse and case management History Interval history: Patient seen and examined medical records reviewed Patient went for thoracentesis; however spontaneous improvement of bilateral pleural effusions No indication for thoracentesis This morning patient had some agitation and fall no external injuries, And some confusion On examination patient is alert and awake responding to simple questions Vital signs reviewed Hospitalist Physical - Constitutional Vitals: Temp Pulse Resp BP Pulse Ox 98.3 F 65 18 177/88 99 10/18/18 08:46 10/18/18 08:46 10/18/18 08:46 10/18/18 08:46 10/18/18 08:46 General appearance: Present: no acute distress, well-nourished - EENT Eyes: Present: PERRL, EOM intact - Neck Neck: Present: supple, normal ROM - Respiratory Respiratory effort: normal Respiratory: bilateral: diminished, negative: rales, rhonchi, wheezing - Cardiovascular Rhythm: regular Heart Sounds: Present: S1 & S2 - Extremities Extremities: no ischemia, No edema - Abdominal General gastrointestinal: soft, non-tender, non-distended, normal bowel sounds - Integumentary Integumentary: Present: clear, warm - Psychiatric Psychiatric: appropriate mood/affect, other (confused at times) - Neurologic Neurologic: moves all extremities Results - Labs CBC & Chem 7: 10/17/18 05:22 10/18/18 08:19 Labs: Laboratory Last Values WBC 3.3 K/mm3 (4.5-11.0) L 10/10/18 05:00 RBC 2.99 M/mm3 (3.65-5.03) L 10/10/18 05:00 Hgb 7.6 gm/dl (11.8-15.2) L 10/17/18 05:22 Hct 23.1 % (35.5-45.6) L 10/17/18 05:22 MCV 87 fl (84-94) 10/10/18 05:00 MCH 27 pg (28-32) L 10/10/18 05:00 MCHC 32 % (32-34) 10/10/18 05:00 RDW 19.2 % (13.2-15.2) H 10/10/18 05:00 Plt Count 242 K/mm3 (140-440) 10/17/18 05:22 Lymph % (Auto) 16.4 % (13.4-35.0) 10/10/18 05:00 [place] % (Auto) 13.2 % (0.0-7.3) H 10/10/18 05:00 Eos % (Auto) 5.8 % (0.0-4.3) H 10/10/18 05:00 Baso % (Auto) 0.6 % (0.0-1.8) 10/10/18 05:00 Lymph # 0.5 K/mm3 (1.2-5.4) L 10/10/18 05:00 [place] # 0.4 K/mm3 (0.0-0.8) 10/10/18 05:00 Eos # 0.2 K/mm3 (0.0-0.4) 10/10/18 05:00 Baso # 0.0 K/mm3 (0.0-0.1) 10/10/18 05:00 Seg Neutrophils % 64.0 % (40.0-70.0) 10/10/18 05:00 Seg Neutrophils # 2.1 K/mm3 (1.8-7.7) 10/10/18 05:00 PT 14.0 Sec. (12.2-14.9) 10/17/18 Unknown INR 1.04 (0.87-1.13) 10/17/18 Unknown APTT 42.4 Sec. (24.2-36.6) H 10/09/18 14:25 D-Dimer 927.57 ng/mlDDU (0-234) H 10/10/18 13:36 Heparin Anti-Xa Level 0.49 U.I./ml (0.3-0.7) 10/11/18 04:31 POC ABG pH 7.359 (7.35-7.45) 10/15/18 13:21 POC ABG pCO2 48.4 (35-45) H 10/15/18 13:21 POC ABG pO2 77 (80-105) L 10/15/18 13:21 POC ABG HCO3 27.3 10/15/18 13:21 POC ABG Total CO2 29 10/15/18 13:21 POC ABG O2 Sat 95 10/15/18 13:21 POC ABG Base Excess 2 10/15/18 13:21 FiO2 21 % 10/15/18 13:21 Sodium 145 mmol/L (137-145) 10/18/18 08:19 Potassium 5.6 mmol/L (3.6-5.0) H 10/18/18 08:19 Chloride 107.3 mmol/L (98-107) H 10/18/18 08:19 Carbon Dioxide 29 mmol/L (22-30) 10/18/18 08:19 Anion Gap 14 mmol/L 10/18/18 08:19 BUN 62 mg/dL (9-20) H 10/18/18 08:19 Creatinine 2.3 mg/dL (0.8-1.5) H 10/18/18 08:19 Estimated GFR 37 ml/min 10/18/18 08:19 BUN/Creatinine Ratio 27 % 10/18/18 08:19 Glucose 201 mg/dL (75-100) H 10/18/18 08:19 POC Glucose 217 (70-105) H 10/18/18 06:36 Hemoglobin A1c 8.2 % (4-6) H 10/10/18 05:00 Lactic Acid 0.60 mmol/L (0.7-2.0) L 10/10/18 13:36 Calcium 8.9 mg/dL (8.4-10.2) 10/18/18 08:19 Phosphorus 4.40 mg/dL (2.5-4.5) 10/14/18 06:06 Magnesium 2.40 mg/dL (1.7-2.3) H 10/14/18 06:06 Total Bilirubin < 0.20 mg/dL (0.1-1.2) 10/11/18 20:45 AST 31 units/L (5-40) 10/11/18 20:45 ALT 56 units/L (7-56) 10/11/18 20:45 Alkaline Phosphatase 261 units/L (35-129) H 10/11/18 20:45 Total Creatine Kinase 481 units/L (55-170) H 10/09/18 11:22 CK-MB (CK-2) 20.5 ng/mL (0.0-4.0) H 10/09/18 11:22 CK-MB (CK-2) Rel Index 4.2 (0-4) H 10/09/18 11:22 Troponin T 0.139 ng/mL (0.00-0.029) H* 10/09/18 20:56 C-Reactive Protein 0.90 mg/dL (0.00-1.30) 10/10/18 13:36 NT-Pro-B Natriuret Pep 2963 pg/mL (0-450) H 10/09/18 11:22 Total Protein 6.2 g/dL (6.3-8.2) L 10/11/18 20:45 Albumin 3.0 g/dL (3.9-5) L 10/11/18 20:45 Albumin/Globulin Ratio 0.9 % 10/11/18 20:45 Triglycerides 24 mg/dL (2-149) 10/09/18 11:22 Cholesterol 115 mg/dL (50-199) 10/09/18 11:22 LDL Cholesterol Direct 49 mg/dL (50-130) L 10/09/18 11:22 HDL Cholesterol 73 mg/dL (40-59) H 10/09/18 11:22 Cholesterol/HDL Ratio 1.57 % 10/09/18 11:22 PTH Intact 152.8 pg/mL (15-65) H 10/17/18 05:22 Urine Color [place] (Yellow) 10/10/18 22:30 Urine Turbidity Clear (Clear) 10/10/18 22:30 Urine pH 5.0 (5.0-7.0) 10/10/18 22:30 Ur Specific [place] 1.016 (1.003-1.030) 10/10/18 22:30 Urine Protein 100 mg/dl mg/dL (Negative) 10/10/18 22:30 Urine Glucose (UA) 50 mg/dL (Negative) 10/10/18 22:30 Urine Ketones Neg mg/dL (Negative) 10/10/18 22:30 Urine Blood Neg (Negative) 10/10/18:30 Urine Nitrite Neg (Negative) 10/10/18 22:30 Urine Bilirubin Neg (Negative) 10/10/18 22: Urine Urobilinogen 4.0 mg/dL (<2.0) 10/10/18 22:30 Ur Leukocyte Esterase Tr (Negative) 10/10/18 22:30 Urine WBC (Auto) 2.0 /HPF (0.0-6.0) 10/10/18 22:30 Urine RBC (Auto) 5.0 /HPF (0.0-6.0) 10/10/18 22:30 U Epithel Cells (Auto) < 1.0 /HPF (0-13.0) 10/10/18 22:30 Urine Bacteria (Auto) 1+ /HPF (Negative) 10/10/18 22:30 Hyaline Casts 1 /LPF 10/10/18 22:30 Urine Mucus Few /HPF 10/10/18 22:30 Urine Creatinine 118.6 mg/dL (0.1-20.0) H 10/10/18 22:30 Protein/Creatinin Ratio 1.28 10/10/18 22:30 Urine Sodium 35 mmol/L 10/10/18 22:30 Urine Total Protein 152 mg/dL (5-11.8) H 10/10/18 22:30 BROWN Screen Negative (Negative) 10/15/18 05:39 Proteinase 3 (PR3) Ab <1.0 AI (<1.0) 10/15/18 05:39 Myeloperoxidase Ab <1.0 AI (<1.0) 10/15/18 05:39 Complement C3 129 mg/dL (82-185) 10/15/18 05:39 Hepatitis A IgM Ab Non-reactive (NonReactive) 10/11/18 13:24 Hep Bs Antigen Non-reactive (Negative) 10/11/18 13:24 Hep B Core IgM Ab Non-reactive (NonReactive) 10/11/18 13:24 Hepatitis C Antibody Non-reactive (NonReactive) 10/11/18 13:24 Nutrition/Malnutrition Assess - Dietary Evaluation Nutrition/Malnutrition Findings: Nutrition Notes Start: 10/16/18 16:17 Freq: Status: Active Protocol: Document 10/16/18 16:17 RM (Rec: 10/16/18 16:25 RM [email or web address]) Nutrition Notes Need for Assessment generated from: LOS Initial or Follow up Assessment Current Diagnosis Acute Kidney Injury Diabetes Hypertension Heart Failure Other Pertinent Diagnosis Encephalopathy Current Diet Cardiac/Renal/Consistent Carb Labs/Tests Reviewed Pertinent Medications Reviewed Height 6 ft 2 in Weight 119 kg [place] Body Weight (lbs) 190.0 BMI 33.7 Weight change and time frame recorded wt loss likely d/t fluid change Subjective/Other Information Pt screened for LOS. Pt somewhat confused at time of visit. Noted lunch at bedside with 1/3 eaten. Per pt tech pt drinks the Nepro. Percent of energy/protein needs met: 44%/46% Burn Absent Trauma Absent #1 Nutrition Diagnosis Inadequate oral intake Etiology encephalopathy As Evidenced by Signs and Symptoms lunch at bedside with 1/3 eaten Is patient on ventilator? No Is Patient Ambulatory and/or Out of Bed No REE-([facility]-confined to bed) 9219.880 Calculation Used for Recommendations [facility] Additional Notes Protein Needs: 103-134g (1-1. 3g/kg, 103kg adjBW) Fluid Needs: 1ml/kcal Nutrition Intervention Change Diet Order: Continue current Add Supplement/Snack (indicate name/kcal Continue Nepro BID /protein ) Provides kCal: 850 Provides Protein (gm) 38 Goal #1 Meet at least 75% of calorie and protein needs via PO and ONS intakes Anticipated Discharge Needs: Cardiac/Consistent Carb/Renal Follow-Up By: 10/18/18 Additional Comments Follow for PO intakes, ONS intakes
[2018-10-18] MEDS ORDERED: NACL 0.9% 100 ML IV PRN (11:50)
[2018-10-18] MEDS ORDERED: KIONEX PO ONE (12:53)
[2018-10-18] MEDS: PROCRIT SUB-Q PRN (16:00)
[2018-10-18] MEDS ORDERED: NACL 0.9 (PRIMING MACHINE ONLY DIALYSIS) MC ONE (16:54)
[2018-10-18] MEDS ORDERED: LASIX ONE (18:47)
[2018-10-18] MEDS: PRAVACHOL PO SCH (22:04)
[2018-10-18] MEDS: RisperDAL PO SCH (22:05)
[2018-10-19] MEDS: HEPARIN SUB-Q SCH ×3 (05:11→21:50)
[2018-10-19] MEDS: LASIX IV SCH ×2 (05:11→19:26)
--- NOTE | 2018-10-19 05:56 | Progress Note ---
Assessment and Plan Severe Sepsis syndrome. Shock (cardiogenic versus septic) Acute encephalopathy. Possible seizures. History of diabetes CMOP Leukopenia. Anemia that is normocytic. Acute hypercapnic respiratory acidosis. Hyperkalemia. Acute kidney injury. Non-ST elevation myocardial infarction. Hypoglycemia. Possible peripheral vascular disease. Obesity. Bilateral moderate pleural effusion, did not require drainage - supplemental oxygen to keep sats > 90% - BIPAP qhs possible sleep apnea - PT/OT as tolerated - aspiration precautions - prn bronchodilators with pulmonary hygiene per RT -cardio-protective measures -continue all current care Stable from pulmonary standpoint for discharge planning. Needs outpatient pulmonary follow up on discharge Subjective Date of service: 10/19/18 Principal diagnosis: Severe Sepsis with Shock; Acute encephalopathy; MAXIMO; Diabetes II; CMOP Interval history: Patient is seen today for: Severe Sepsis syndrome; Shock (cardiogenic versus septic); Acute encephalopathy; Possible seizures; History of diabetes; CMOP Seen and examined at bedside; 24hour events reviewed; nursing and respiratory care staff consulted; no adverse overnight events reported to me; resting peacefully in bed; denies acute chest pains or palpitations; no chest pain, no shortness of breath. Bilateral pleural effusions with spontaneous improvement of right pleural effusion from 300 mL- 31 ml and Left pleural effusion decreased from 421 mL-112 mL No indication for thoracentesis Objective Vital Signs - 12hr 10/18/18 10/18/18 10/18/18 18:24 18:27 20:01 Temperature 97.6 F 97.4 F L Pulse Rate 83 77 74 Respiratory 20 18 Rate Blood Pressure 164/90 170/89 160/98 O2 Sat by Pulse 94 87 Oximetry 10/19/18 10/19/18 00:06 04:44 Temperature 98.2 F 98.2 F Pulse Rate 73 82 Respiratory 18 18 Rate Blood Pressure 171/81 157/78 O2 Sat by Pulse 96 96 Oximetry Constitutional: no acute distress, alert, other (middle aged AAM, normocephalic and atraumatic with normal respiratory effort) Eyes: non-icteric ENT: oropharynx moist Neck: supple, no lymphadenopathy, no JVD Effort: normal Ascultation: Bilateral: diminished breath sounds, rales (bases) Percussion: Bilateral: not dull Cardiovascular: regular rate and rhythm Gastrointestinal: normoactive bowel sounds, soft, non-tender, non-distended Integumentary: rash (feet) Extremities: no cyanosis, pulses normal, no ischemia or petechiae, edema (1+) Neurologic: normal mental status, non-focal exam, pupils equal and round, motor strength normal and, other (sensory numbness to feet) Psychiatric: mood appropriate, affect normal, other CBC and BMP: 10/17/18 05:22 10/18/18 08:19 ABG, PT/INR, D-dimer: ABG POC ABG pH 7.359 (7.35-7.45) 10/15/18 13:21 POC ABG pCO2 48.4 (35-45) H 10/15/18 13:21 POC ABG pO2 77 (80-105) L 10/15/18 13:21 POC ABG HCO3 27.3 10/15/18 13:21 POC ABG Total CO2 29 10/15/18 13:21 POC ABG O2 Sat 95 10/15/18 13:21 PT/INR, D-dimer PT 14.0 Sec. (12.2-14.9) 10/17/18 Unknown INR 1.04 (0.87-1.13) 10/17/18 Unknown D-Dimer 927.57 ng/mlDDU (0-234) H 10/10/18 13:36 Abnormal lab findings: Abnormal Labs 10/09/18 10/09/18 10/09/18 11:22 11:22 11:22 WBC 3.3 L RBC 3.03 L Hgb 8.4 L Hct 25.8 L MCH RDW 18.7 H [place] % (Auto) 12.1 H Eos % (Auto) 4.6 H Lymph # 0.5 L APTT 42.8 H D-Dimer Heparin Anti-Xa Level POC ABG pH POC ABG pCO2 POC ABG pO2 Potassium 5.2 H Chloride 108.2 H BUN 49 H Creatinine 1.9 H Glucose 153 H POC Glucose Hemoglobin A1c Lactic Acid Calcium Magnesium Alkaline Phosphatase Total Creatine Kinase 481 H CK-MB (CK-2) 20.5 H CK-MB (CK-2) Rel Index 4.2 H Troponin T 0.153 H* NT-Pro-B Natriuret Pep 2963 H Total Protein Albumin LDL Cholesterol Direct 49 L HDL Cholesterol 73 H PTH Intact Urine Creatinine Urine Total Protein 10/09/18 10/09/18 10/09/18 13:43 14:25 14:25 WBC RBC Hgb 8.2 L Hct 26.2 L MCH RDW [place] % (Auto) Eos % (Auto) Lymph # APTT 42.4 H D-Dimer Heparin Anti-Xa Level POC ABG pH POC ABG pCO2 POC ABG pO2 Potassium Chloride BUN Creatinine Glucose POC Glucose 167 H Hemoglobin A1c Lactic Acid Calcium Magnesium Alkaline Phosphatase Total Creatine Kinase CK-MB (CK-2) CK-MB (CK-2) Rel Index Troponin T NT-Pro-B Natriuret Pep Total Protein Albumin LDL Cholesterol Direct HDL Cholesterol PTH Intact Urine Creatinine Urine Total Protein 10/09/18 10/09/18 10/09/18 17:28 20:56 21:23 WBC RBC Hgb Hct MCH RDW [place] % (Auto) Eos % (Auto) Lymph # APTT D-Dimer Heparin Anti-Xa Level 0.28 L POC ABG pH POC ABG pCO2 POC ABG pO2 Potassium Chloride BUN Creatinine Glucose POC Glucose Hemoglobin A1c Lactic Acid Calcium Magnesium Alkaline Phosphatase Total Creatine Kinase CK-MB (CK-2) CK-MB (CK-2) Rel Index Troponin T 0.136 H* 0.139 H* NT-Pro-B Natriuret Pep Total Protein Albumin LDL Cholesterol Direct HDL Cholesterol PTH Intact Urine Creatinine Urine Total Protein 10/10/18 10/10/18 10/10/18 00:10 05:00 05:00 WBC 3.3 L RBC 2.99 L Hgb 8.2 L Hct 25.9 L MCH 27 L RDW 19.2 H [place] % (Auto) 13.2 H Eos % (Auto) 5.8 H Lymph # 0.5 L APTT D-Dimer Heparin Anti-Xa Level POC ABG pH POC ABG pCO2 POC ABG pO2 Potassium 5.6 H Chloride 110.8 H BUN 50 H Creatinine 2.2 H Glucose 52 L POC Glucose 60 L Hemoglobin A1c Lactic Acid Calcium 8.1 L Magnesium Alkaline Phosphatase Total Creatine Kinase CK-MB (CK-2) CK-MB (CK-2) Rel Index Troponin T NT-Pro-B Natriuret Pep Total Protein Albumin LDL Cholesterol Direct HDL Cholesterol PTH Intact Urine Creatinine Urine Total Protein 10/10/18 10/10/18 10/10/18 05:00 06:11 11:30 WBC RBC Hgb Hct MCH RDW [place] % (Auto) Eos % (Auto) Lymph # APTT D-Dimer Heparin Anti-Xa Level POC ABG pH POC ABG pCO2 POC ABG pO2 Potassium Chloride BUN Creatinine Glucose POC Glucose 57 L 48 L Hemoglobin A1c 8.2 H Lactic Acid Calcium Magnesium Alkaline Phosphatase Total Creatine Kinase CK-MB (CK-2) CK-MB (CK-2) Rel Index Troponin T NT-Pro-B Natriuret Pep Total Protein Albumin LDL Cholesterol Direct HDL Cholesterol PTH Intact Urine Creatinine Urine Total Protein 10/10/18 10/10/18 10/10/18 12:22 13:36 13:36 WBC RBC Hgb Hct MCH RDW [place] % (Auto) Eos % (Auto) Lymph # APTT D-Dimer 927.57 H Heparin Anti-Xa Level POC ABG pH 7.286 L POC ABG pCO2 47.3 H POC ABG pO2 65 L Potassium Chloride BUN Creatinine Glucose POC Glucose Hemoglobin A1c Lactic Acid 0.60 L Calcium Magnesium Alkaline Phosphatase Total Creatine Kinase CK-MB (CK-2) CK-MB (CK-2) Rel Index Troponin T NT-Pro-B Natriuret Pep Total Protein Albumin LDL Cholesterol Direct HDL Cholesterol PTH Intact Urine Creatinine Urine Total Protein 10/10/18 10/10/18 10/10/18 16:42 21:12 22:30 WBC RBC Hgb Hct MCH RDW [place] % (Auto) Eos % (Auto) Lymph # APTT D-Dimer Heparin Anti-Xa Level POC ABG pH POC ABG pCO2 POC ABG pO2 Potassium Chloride BUN Creatinine Glucose POC Glucose 122 H 119 H Hemoglobin A1c Lactic Acid Calcium Magnesium Alkaline Phosphatase Total Creatine Kinase CK-MB (CK-2) CK-MB (CK-2) Rel Index Troponin T NT-Pro-B Natriuret Pep Total Protein Albumin LDL Cholesterol Direct HDL Cholesterol PTH Intact Urine Creatinine 118.6 H Urine Total Protein 152 H 10/11/18 10/11/18 10/11/18 04:31 04:31 13:15 WBC RBC Hgb 8.7 L Hct 27.9 L MCH RDW [place] % (Auto) Eos % (Auto) Lymph # APTT D-Dimer Heparin Anti-Xa Level POC ABG pH POC ABG pCO2 POC ABG pO2 Potassium 6.6 H* 6.4 H* Chloride BUN 55 H Creatinine 2.9 H Glucose POC Glucose Hemoglobin A1c Lactic Acid Calcium 7.6 L Magnesium Alkaline Phosphatase Total Creatine Kinase CK-MB (CK-2) CK-MB (CK-2) Rel Index Troponin T NT-Pro-B Natriuret Pep Total Protein Albumin LDL Cholesterol Direct HDL Cholesterol PTH Intact Urine Creatinine Urine Total Protein 10/11/18 10/11/18 10/12/18 20:45 22:37 04:25 WBC RBC Hgb Hct MCH RDW [place] % (Auto) Eos % (Auto) Lymph # APTT D-Dimer Heparin Anti-Xa Level POC ABG pH POC ABG pCO2 POC ABG pO2 Potassium Chloride BUN 37 H 38 H Creatinine 2.4 H 2.3 H Glucose POC Glucose 117 H Hemoglobin A1c Lactic Acid Calcium 7.5 L 7.6 L Magnesium Alkaline Phosphatase 261 H Total Creatine Kinase CK-MB (CK-2) CK-MB (CK-2) Rel Index Troponin T NT-Pro-B Natriuret Pep Total Protein 6.2 L Albumin 3.0 L LDL Cholesterol Direct HDL Cholesterol PTH Intact Urine Creatinine Urine Total Protein 10/12/18 10/12/18 10/13/18 10:02 21:33 03:28 WBC RBC Hgb 7.6 L 7.7 L Hct 24.1 L 23.8 L MCH RDW [place] % (Auto) Eos % (Auto) Lymph # APTT D-Dimer Heparin Anti-Xa Level POC ABG pH POC ABG pCO2 POC ABG pO2 Potassium Chloride BUN Creatinine Glucose POC Glucose 109 H Hemoglobin A1c Lactic Acid Calcium Magnesium Alkaline Phosphatase Total Creatine Kinase CK-MB (CK-2) CK-MB (CK-2) Rel Index Troponin T NT-Pro-B Natriuret Pep Total Protein Albumin LDL Cholesterol Direct HDL Cholesterol PTH Intact Urine Creatinine Urine Total Protein 10/13/18 10/13/18 10/13/18 03:28 08:27 15:04 WBC RBC Hgb Hct MCH RDW [place] % (Auto) Eos % (Auto) Lymph # APTT D-Dimer Heparin Anti-Xa Level POC ABG pH POC ABG pCO2 POC ABG pO2 Potassium Chloride BUN 38 H Creatinine 1.9 H Glucose POC Glucose 136 H 160 H Hemoglobin A1c Lactic Acid Calcium 8.3 L Magnesium Alkaline Phosphatase Total Creatine Kinase CK-MB (CK-2) CK-MB (CK-2) Rel Index Troponin T NT-Pro-B Natriuret Pep Total Protein Albumin LDL Cholesterol Direct HDL Cholesterol PTH Intact Urine Creatinine Urine Total Protein 10/13/18 10/13/18 10/14/18 16:53 23:06 06:06 WBC RBC Hgb Hct MCH RDW [place] % (Auto) Eos % (Auto) Lymph # APTT D-Dimer Heparin Anti-Xa Level POC ABG pH POC ABG pCO2 POC ABG pO2 Potassium Chloride 107.7 H BUN 39 H Creatinine 1.8 H Glucose 116 H POC Glucose 161 H 213 H Hemoglobin A1c Lactic Acid Calcium Magnesium 2.40 H Alkaline Phosphatase Total Creatine Kinase CK-MB (CK-2) CK-MB (CK-2) Rel Index Troponin T NT-Pro-B Natriuret Pep Total Protein Albumin LDL Cholesterol Direct HDL Cholesterol PTH Intact Urine Creatinine Urine Total Protein 10/14/18 10/14/18 10/14/18 06:34 11:01 13:50 WBC RBC Hgb 7.8 L Hct 24.8 L MCH RDW [place] % (Auto) Eos % (Auto) Lymph # APTT D-Dimer Heparin Anti-Xa Level POC ABG pH POC ABG pCO2 POC ABG pO2 Potassium Chloride BUN Creatinine Glucose POC Glucose 118 H 67 L Hemoglobin A1c Lactic Acid Calcium Magnesium Alkaline Phosphatase Total Creatine Kinase CK-MB (CK-2) CK-MB (CK-2) Rel Index Troponin T NT-Pro-B Natriuret Pep Total Protein Albumin LDL Cholesterol Direct HDL Cholesterol PTH Intact Urine Creatinine Urine Total Protein 10/14/18 10/15/18 10/15/18 21:37 05:39 05:39 WBC RBC Hgb 7.6 L Hct 23.5 L MCH RDW [place] % (Auto) Eos % (Auto) Lymph # APTT D-Dimer Heparin Anti-Xa Level POC ABG pH POC ABG pCO2 POC ABG pO2 Potassium Chloride BUN 45 H Creatinine 2.1 H Glucose 59 L POC Glucose 125 H Hemoglobin A1c Lactic Acid Calcium 8.3 L Magnesium Alkaline Phosphatase Total Creatine Kinase CK-MB (CK-2) CK-MB (CK-2) Rel Index Troponin T NT-Pro-B Natriuret Pep Total Protein Albumin LDL Cholesterol Direct HDL Cholesterol PTH Intact Urine Creatinine Urine Total Protein 10/15/18 10/15/18 10/15/18 06:27 07:48 13:21 WBC RBC Hgb Hct MCH RDW [place] % (Auto) Eos % (Auto) Lymph # APTT D-Dimer Heparin Anti-Xa Level POC ABG pH POC ABG pCO2 48.4 H POC ABG pO2 77 L Potassium Chloride BUN Creatinine Glucose POC Glucose 46 L 65 L Hemoglobin A1c Lactic Acid Calcium Magnesium Alkaline Phosphatase Total Creatine Kinase CK-MB (CK-2) CK-MB (CK-2) Rel Index Troponin T NT-Pro-B Natriuret Pep Total Protein Albumin LDL Cholesterol Direct HDL Cholesterol PTH Intact Urine Creatinine Urine Total Protein 10/15/18 10/15/18 10/16/18 13:24 21:23 06:25 WBC RBC Hgb Hct MCH RDW [place] % (Auto) Eos % (Auto) Lymph # APTT D-Dimer Heparin Anti-Xa Level POC ABG pH POC ABG pCO2 POC ABG pO2 Potassium Chloride 107.7 H BUN 53 H Creatinine 2.2 H Glucose 61 L POC Glucose 106 H 160 H Hemoglobin A1c Lactic Acid Calcium Magnesium Alkaline Phosphatase Total Creatine Kinase CK-MB (CK-2) CK-MB (CK-2) Rel Index Troponin T NT-Pro-B Natriuret Pep Total Protein Albumin LDL Cholesterol Direct HDL Cholesterol PTH Intact Urine Creatinine Urine Total Protein 10/16/18 10/16/18 10/17/18 06:49 21:42 05:22 WBC RBC Hgb 7.6 L Hct 23.1 L MCH RDW [place] % (Auto) Eos % (Auto) Lymph # APTT D-Dimer Heparin Anti-Xa Level POC ABG pH POC ABG pCO2 POC ABG pO2 Potassium Chloride BUN Creatinine Glucose POC Glucose 51 L 153 H Hemoglobin A1c Lactic Acid Calcium Magnesium Alkaline Phosphatase Total Creatine Kinase CK-MB (CK-2) CK-MB (CK-2) Rel Index Troponin T NT-Pro-B Natriuret Pep Total Protein Albumin LDL Cholesterol Direct HDL Cholesterol PTH Intact Urine Creatinine Urine Total Protein 10/17/18 10/17/18 10/17/18 05:22 05:22 12:17 WBC RBC Hgb Hct MCH RDW [place] % (Auto) Eos % (Auto) Lymph # APTT D-Dimer Heparin Anti-Xa Level POC ABG pH POC ABG pCO2 POC ABG pO2 Potassium Chloride BUN 59 H Creatinine 2.2 H Glucose 111 H POC Glucose 130 H Hemoglobin A1c Lactic Acid Calcium Magnesium Alkaline Phosphatase Total Creatine Kinase CK-MB (CK-2) CK-MB (CK-2) Rel Index Troponin T NT-Pro-B Natriuret Pep Total Protein Albumin LDL Cholesterol Direct HDL Cholesterol PTH Intact 152.8 H Urine Creatinine Urine Total Protein 10/17/18 10/18/18 10/18/18 21:32 06:36 08:19 WBC RBC Hgb Hct MCH RDW [place] % (Auto) Eos % (Auto) Lymph # APTT D-Dimer Heparin Anti-Xa Level POC ABG pH POC ABG pCO2 POC ABG pO2 Potassium 5.6 H Chloride 107.3 H BUN 62 H Creatinine 2.3 H Glucose 201 H POC Glucose 402 H 217 H Hemoglobin A1c Lactic Acid Calcium Magnesium Alkaline Phosphatase Total Creatine Kinase CK-MB (CK-2) CK-MB (CK-2) Rel Index Troponin T NT-Pro-B Natriuret Pep Total Protein Albumin LDL Cholesterol Direct HDL Cholesterol PTH Intact Urine Creatinine Urine Total Protein 10/18/18 10/18/18 12:24 18:30 WBC RBC Hgb Hct MCH RDW [place] % (Auto) Eos % (Auto) Lymph # APTT D-Dimer Heparin Anti-Xa Level POC ABG pH POC ABG pCO2 POC ABG pO2 Potassium Chloride BUN Creatinine Glucose POC Glucose 159 H 136 H Hemoglobin A1c Lactic Acid Calcium Magnesium Alkaline Phosphatase Total Creatine Kinase CK-MB (CK-2) CK-MB (CK-2) Rel Index Troponin T NT-Pro-B Natriuret Pep Total Protein Albumin LDL Cholesterol Direct HDL Cholesterol PTH Intact Urine Creatinine Urine Total Protein Allied health notes reviewed: nursing
[2018-10-19 05:58] LABS: Basophils % (Auto) 0.3 % (0.0-1.8); Eosinophils # (Auto) 0.2 K/mm3 (0.0-0.4); Eosinophils % (Auto) 2.5 % (0.0-4.3); Hemoglobin 7.5 gm/dl (11.8-15.2); Lymphocytes % (Auto) 11.3 % (13.4-35.0); Mean Corpuscular HGB Conc 33 % (32-34); Mean Corpuscular Volume 84 fl (84-94); Monocytes # (Auto) 1.2 K/mm3 (0.0-0.8); Monocytes % (Auto) 14.5 % (0.0-7.3); Platelet Count 222 K/mm3 (140-440); Red Blood Count 2.74 M/mm3 (3.65-5.03); Red Cell Distribution Width 17.9 % (13.2-15.2)
[2018-10-19 06:18] LABS: BUN/Creatinine Ratio 25; Blood Urea Nitrogen 33 mg/dL (9-20); Calcium 8.8 mg/dL (8.4-10.2); Hemolysis Index 2
[2018-10-19] MEDS: HumuLIN R SUB-Q SCH ×4 (08:42→21:50)
[2018-10-19 08:51] LABS: Albumin 2.5 g/dL (3.8-4.8); Gamma Globulin 1.2 g/dL (0.8-1.7)
--- NOTE | 2018-10-19 09:55 | Progress Note ---
Assessment and Plan Assessment and plan: --Altered mental status/Acute encephalopathy ; present on admission head CT with no acute process, currently improved, supportive care --Bilateral moderate pleural effusion; Spontaneous improvement of right pleural effusion from 300 mL- 31 mL Left pleural effusion decreased from 421 mL-112 mL No indication for thoracentesis, continue hemodialysis --MAXIMO / hyperkalemia : Nephrology following, HD as needed --Hypotension- s/p vasopressor , currently hypertensive. --NSTEMI type II- s/p heparin drip, obtained 2d echo, cardiology evaluated and signed off Outpatient follow-up for further evaluation and management --Acute on chronic systolic CHF: EF 35-40%, cont aspirin/statin, monitor daily wt, ins/os, restrict fluid --Sinus bradycardia -resolved, avoid beta blockers --Anemia, chronic kidney disease; closely monitor --HTN, continue current antihypertensives and when necessary medications --DM, cont SSI, Accu-Cheks, ADA diet, insulin as needed --HLP, cont statin -- h/o psych disorder, supportive care, consult psych for disposition and management --Extensive scrotal swelling, ultrasound; thick skin, testis and epididymis normal --DC planning for case management. Disposition-per psych Plan of care is reviewed with the patient's nurse and case management History Interval history: Patient seen and examined medical records reviewed Patient feels slightly better no new complaints Vital signs noted Alert awake oriented 3 not in acute distress Hospitalist Physical - Constitutional Vitals: Temp Pulse Resp BP Pulse Ox 97.9 F 80 18 166/87 95 10/19/18 08:35 10/19/18 08:35 10/19/18 08:35 10/19/18 08:35 10/19/18 08:35 General appearance: Present: no acute distress, well-nourished - EENT Eyes: Present: PERRL, EOM intact - Neck Neck: Present: supple, normal ROM - Respiratory Respiratory effort: normal Respiratory: bilateral: diminished, negative: rales, rhonchi, wheezing - Cardiovascular Rhythm: regular Heart Sounds: Present: S1 & S2 - Extremities Extremities: no ischemia Extremity abnormal: edema - Abdominal General gastrointestinal: soft, non-tender, non-distended, normal bowel sounds - Integumentary Integumentary: Present: clear, warm - Psychiatric Psychiatric: appropriate mood/affect, cooperative - Neurologic Neurologic: moves all extremities Results - Labs CBC & Chem 7: 10/19/18 04:53 10/19/18 04:53 Labs: Laboratory Last Values WBC 8.5 K/mm3 (4.5-11.0) 10/19/18 04:53 RBC 2.74 M/mm3 (3.65-5.03) L 10/19/18 04:53 Hgb 7.5 gm/dl (11.8-15.2) L 10/19/18 04:53 Hct 23.0 % (35.5-45.6) L 10/19/18 04:53 MCV 84 fl (84-94) 10/19/18 04:53 MCH 27 pg (28-32) L 10/19/18 04:53 MCHC 33 % (32-34) 10/19/18 04:53 RDW 17.9 % (13.2-15.2) H 10/19/18 04:53 Plt Count 222 K/mm3 (140-440) 10/19/18 04:53 Lymph % (Auto) 11.3 % (13.4-35.0) L 10/19/18 04:53 [place] % (Auto) 14.5 % (0.0-7.3) H 10/19/18 04:53 Eos % (Auto) 2.5 % (0.0-4.3) 10/19/18 04:53 Baso % (Auto) 0.3 % (0.0-1.8) 10/19/18 04:53 Lymph # 1.0 K/mm3 (1.2-5.4) L 10/19/18 04:53 [place] # 1.2 K/mm3 (0.0-0.8) H 10/19/18 04:53 Eos # 0.2 K/mm3 (0.0-0.4) 10/19/18 04:53 Baso # 0.0 K/mm3 (0.0-0.1) 10/19/18 04:53 Seg Neutrophils % 71.4 % (40.0-70.0) H 10/19/18 04:53 Seg Neutrophils # 6.0 K/mm3 (1.8-7.7) 10/19/18 04:53 PT 14.0 Sec. (12.2-14.9) 10/17/18 Unknown INR 1.04 (0.87-1.13) 10/17/18 Unknown APTT 42.4 Sec. (24.2-36.6) H 10/09/18 14:25 D-Dimer 927.57 ng/mlDDU (0-234) H 10/10/18 13:36 Heparin Anti-Xa Level 0.49 U.I./ml (0.3-0.7) 10/11/18 04:31 POC ABG pH 7.359 (7.35-7.45) 10/15/18 13:21 POC ABG pCO2 48.4 (35-45) H 10/15/18 13:21 POC ABG pO2 77 (80-105) L 10/15/18 13:21 POC ABG HCO3 27.3 10/15/18 13:21 POC ABG Total CO2 29 10/15/18 13:21 POC ABG O2 Sat 95 10/15/18 13:21 POC ABG Base Excess 2 10/15/18 13:21 FiO2 21 % 10/15/18 13:21 Sodium 143 mmol/L (137-145) 10/19/18 04:53 Potassium 4.5 mmol/L (3.6-5.0) 10/19/18 04:53 Chloride 102.1 mmol/L (98-107) 10/19/18 04:53 Carbon Dioxide 33 mmol/L (22-30) H 10/19/18 04:53 Anion Gap 12 mmol/L 10/19/18 04:53 BUN 33 mg/dL (9-20) H 10/19/18 04:53 Creatinine 1.3 mg/dL (0.8-1.5) 10/19/18 04:53 Estimated GFR > 60 ml/min 10/19/18 04:53 BUN/Creatinine Ratio 25 % 10/19/18 04:53 Glucose 52 mg/dL (75-100) L 10/19/18 04:53 POC Glucose 72 (70-105) 10/19/18 06:13 Hemoglobin A1c 8.2 % (4-6) H 10/10/18 05:00 Lactic Acid 0.60 mmol/L (0.7-2.0) L 10/10/18 13:36 Calcium 8.8 mg/dL (8.4-10.2) 10/19/18 04:53 Phosphorus 4.40 mg/dL (2.5-4.5) 10/14/18 06:06 Magnesium 2.40 mg/dL (1.7-2.3) H 10/14/18 06:06 Total Bilirubin < 0.20 mg/dL (0.1-1.2) 10/11/18 20:45 AST 31 units/L (5-40) 10/11/18 20:45 ALT 56 units/L (7-56) 10/11/18 20:45 Alkaline Phosphatase 261 units/L (35-129) H 10/11/18 20:45 Total Creatine Kinase 481 units/L (55-170) H 10/09/18 11:22 CK-MB (CK-2) 20.5 ng/mL (0.0-4.0) H 10/09/18 11:22 CK-MB (CK-2) Rel Index 4.2 (0-4) H 10/09/18 11:22 Troponin T 0.139 ng/mL (0.00-0.029) H* 10/09/18 20:56 C-Reactive Protein 0.90 mg/dL (0.00-1.30) 10/10/18 13:36 NT-Pro-B Natriuret Pep 2963 pg/mL (0-450) H 10/09/18 11:22 Serum Total Protein 5.6 g/dL (6.1-8.1) L 10/15/18 05:39 Total Protein 6.2 g/dL (6.3-8.2) L 10/11/18 20:45 Albumin 2.5 g/dL (3.8-4.8) L 10/15/18 05:39 Albumin/Globulin Ratio 0.9 % 10/11/18 20:45 Gvdul-4-Tvvaojklx 0.4 g/dL (0.2-0.3) H 10/15/18 05:39 Tliez-6-Liwrtthpd 0.7 g/dL (0.5-0.9) 10/15/18 05:39 Beta Globulins 0.4 g/dL (0.2-0.5) 10/15/18 05:39 Gamma Globulins 1.2 g/dL (0.8-1.7) 10/15/18 05:39 Abnorm Protein Band 1 see below 10/15/18 05:39 PEP Interpretation see below H 10/15/18 05:39 Triglycerides 24 mg/dL (2-149) 10/09/18 11:22 Cholesterol 115 mg/dL (50-199) 10/09/18 11:22 LDL Cholesterol Direct 49 mg/dL (50-130) L 10/09/18 11:22 HDL Cholesterol 73 mg/dL (40-59) H 10/09/18 11:22 Cholesterol/HDL Ratio 1.57 % 10/09/18 11:22 PTH Intact 152.8 pg/mL (15-65) H 10/17/18 05:22 Urine Color Tamie (Yellow) 10/10/18 22:30 Urine Turbidity Clear (Clear) 10/10/18 22:30 Urine pH 5.0 (5.0-7.0) 10/10/18 22:30 Ur Specific [place] 1.016 (1.003-1.030) 10/10/18 22:30 Urine Protein 100 mg/dl mg/dL (Negative) 10/10/18 22:30 Urine Glucose (UA) 50 mg/dL (Negative) 10/10/18 22:30 Urine Ketones Neg mg/dL (Negative) 10/10/18 22:30 Urine Blood Neg (Negative) 10/10/18 22:30 Urine Nitrite Neg (Negative) 10/10/18 22:30 Urine Bilirubin Neg (Negative) 10/10/18 22:30 Urine Urobilinogen 4.0 mg/dL (<2.0) 10/10/18 22:30 Ur Leukocyte Esterase Tr (Negative) 10/10/18 22:30 Urine WBC (Auto) 2.0 /HPF (0.0-6.0) 10/10/18 22:30 Urine RBC (Auto) 5.0 /HPF (0.0-6.0) 10/10/18 22:30 U Epithel Cells (Auto) < 1.0 /HPF (0-13.0) 10/10/18 22:30 Urine Bacteria (Auto) 1+ /HPF (Negative) 10/10/18 22:30 Hyaline Casts 1 /LPF 10/10/18 22:30 Urine Mucus Few /HPF 10/10/18 22:30 Urine Creatinine 118.6 mg/dL (0.1-20.0) H 10/10/18 22:30 Protein/Creatinin Ratio 1.28 10/10/18 22:30 Urine Sodium 35 mmol/L 10/10/18 22:30 Urine Total Protein 152 mg/dL (5-11.8) H 10/10/18 22:30 BROWN Screen Negative (Negative) 10/15/18 05:39 Proteinase 3 (PR3) Ab <1.0 AI (<1.0) 10/15/18 05:39 Myeloperoxidase Ab <1.0 AI (<1.0) 10/15/18 05:39 Complement C3 129 mg/dL (82-185) 10/15/18 05:39 Hepatitis A IgM Ab Non-reactive (NonReactive) 10/11/18 13:24 Hep Bs Antigen Non-reactive (Negative) 10/11/18 13:24 Hep B Core IgM Ab Non-reactive (NonReactive) 10/11/18 13:24 Hepatitis C Antibody Non-reactive (NonReactive) 10/11/18 13:24 Nutrition/Malnutrition Assess - Dietary Evaluation Nutrition/Malnutrition Findings: Nutrition Notes Start: 10/16/18 16:17 Freq: Status: Active Protocol: Document 10/18/18 18:14 RM (Rec: 10/18/18 18:24 [id number]) Nutrition Notes Initial or Follow up Reassessment Current Diagnosis Acute Kidney Injury Diabetes Hypertension Heart Failure Other Pertinent Diagnosis Encephalopathy, R leg diabetic PU, AMS Current Diet Cardiac/Renal/Consistent Carb w/Nepro Butter Pecan BID Labs/Tests K 5.6 Pertinent Medications Lasix Height 6 ft 2 in Weight 119 kg [place] Body Weight (lbs) 190.0 BMI 33.7 Subjective/Other Information Pt not in room at time of visit. Tech stated that pt ate most of her meals yesterday and drank all of the Nepro yesterday. Tech unsure of how much pt ate today. Percent of energy/protein needs met: 90%/94% Burn Absent Trauma Absent #1 Nutrition Diagnosis Inadequate oral intake As Evidenced by Signs and Symptoms pt meeting 90% of calorie needs and 94% of protein needs Diagnosis Progress(for reassessment Resolved documentation) Is patient on ventilator? No Is Patient Ambulatory and/or Out of Bed No REE-([facility] [place]-confined to bed) [phone] Calculation Used for Recommendations Ximena Cloud Additional Notes Protein Needs: 103-134g (1-1. 3g/kg, 103kg adjBW) Fluid Needs: 1ml/kcal Nutrition Intervention Change Diet Order: Continue current Add Supplement/Snack (indicate name/kcal Continue Nepro BID /protein ) Provides kCal: 850 Provides Protein (gm) 38 Goal #1 Meet at least 75% of calorie and protein needs via PO and ONS intakes Anticipated Discharge Needs: Cardiac/Consistent Carb/Renal Follow-Up By: 10/25/18 Additional Comments Follow for PO and ONS intakes
[2018-10-19] MEDS: NEURONTIN PO SCH (10:01)
[2018-10-19] MEDS: FEOSOL PO SCH (10:01)
[2018-10-19] MEDS: PEPCID PO SCH (10:01)
[2018-10-19] MEDS: COREG PO SCH ×2 (10:01→21:50)
[2018-10-19] MEDS: SODIUM CHLORIDE FLUSH SYRINGE 10 ML IV SCH ×2 (10:02→21:51)
[2018-10-19] MEDS: ASPIRIN PO SCH (10:02)
[2018-10-19] MEDS: MILK OF MAGNESIA PO PRN (10:58)
[2018-10-19] MEDS: PERCOCET 5/325 PO PRN ×2 (10:58→17:48)
--- NOTE | 2018-10-19 14:36 | Progress Note ---
Assessment and Plan 1. Acute kidney injury: MAXIMO likely Vasomotor / hemodynamic mediated in the setting of hypotension. Patient was started on hemodialysis on 10/11/2018 due to continued decline in the Renal function and hyperkalemia. He was last dialzyed yesterday. 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 Isolated UF today. Monitor renal function and [employer] needs. 2. FEN: Volume overload, improving. UF today Continue IV Lasix. 3. CHF exacerbation: Was on Dobutamine drip. 4. Hypotension: BP is better. 5. : Miranda catheter. 6. Anemia: Epogen, monitor. Subjective Date of service: 10/19/18 Principal diagnosis: Severe Sepsis with Shock; Acute encephalopathy; MAXIMO; Diabetes II; CMOP Interval history: Patient was seen and examined at the bedside. Objective - Vital Signs Vital signs: Vital Signs - 12hr 10/19/18 10/19/18 10/19/18 04:00 04:44 08:35 Temperature 98.2 F 97.9 F Pulse Rate 75 82 80 Respiratory 18 18 Rate Blood Pressure 157/78 166/87 O2 Sat by Pulse 96 95 Oximetry - General Appearance General appearance: well-developed, well-nourished, appears stated age, other (not in distress, right groin hemodialysis catheter) EENT: ATNC, PERRL, mucous membranes moist, hearing intact, vision intact Neck: supple Respiratory: Present: Clear to Ascultation Cardiology: regular, S1S2, no murmurs Gastrointestinal: normoactive bowel sounds, no tenderness, no distended, other (Miranda catheter) Integumentary: other (left foot dressing) Neurologic: no focal deficit, no asterixis, other (tremors noted) Musculoskeletal: other (1+ edema of both LEs noted) - Lab 10/19/18 04:53 10/19/18 04:53 Most recent lab results Calcium 8.8 mg/dL (8.4-10.2) 10/19/18 04:53 Phosphorus 4.40 mg/dL (2.5-4.5) 10/14/18 06:06 Magnesium 2.40 mg/dL (1.7-2.3) H 10/14/18 06:06 Urine Creatinine 118.6 mg/dL (0.1-20.0) H 10/10/18 22:30 Urine Sodium 35 mmol/L 10/10/18 22:30 Urine Total Protein 152 mg/dL (5-11.8) H 10/10/18 22:30 Medications & Allergies - Medications Allergies/Adverse Reactions: Allergies No Known Allergies Allergy (Unverified 10/09/18 10:44) Home Medications: Home Medications Medication Instructions Recorded Confirmed Last Taken Type Carvedilol [Coreg] 3.125 mg PO BID 10/09/18 10/09/[address] [DepaKOTE DR] 500 mg PO BID 10/09/18 10/09/18 Unknown History Ferrous Sulfate [Feosol] 325 mg PO QDAY 10/09/18 10/09/18 Unknown History Furosemide [Lasix] 80 mg PO DAILY 10/09/18 10/09/18 Unknown History Gabapentin [Neurontin] 300 mg PO Q8HR 10/09/18 10/09/18 Unknown History ISOSORBIDE MONOnitrate [Imdur ER] 30 mg PO DAILY 10/09/18 10/09/18 Unknown History Insulin Glargine,Hum.rec.anlog 40 units SQ QHS 10/09/18 10/09/18 Unknown History [Lantus] Magnesium Oxide [Mag-Ox] 400 mg PO DAILY 10/09/18 10/09/18 Unknown History Simvastatin (Nf) [Zocor TAB] 20 mg PO QHS 10/09/18 10/09/18 Unknown History Sulfamethoxazole/Trimethoprim 1 each PO BID 10/09/18 10/09/18 Unknown History [Bactrim DS TAB] glipiZIDE [Glipizide] 10 mg PO DAILY 10/09/18 10/09/18 Unknown History hydrALAZINE [Apresoline TAB] 100 mg PO BID 10/09/18 10/09/18 Unknown History risperiDONE [RisperDAL] 1 mg PO QHS 10/09/18 10/09/18 Unknown History Active Medications: Generic Name Dose Route Start Last Admin Trade Name Freq PRN Reason Stop Dose Admin Albumin Human 25 gm 10/11/18 09:35 Alburx 25% (Albumin) IV JUDE PRN Hypotension Aspirin 325 mg 10/10/18 10:00 10/19/18 10:02 Aspirin PO 325 mg QDAY JAMIL Administration Carvedilol 6.25 mg 10/14/18 22:00 10/19/18 10:01 Coreg PO 6.25 mg BID JAMIL Administration Dextrose 50 ml 10/10/18 11:03 10/16/18 07:14 D50w (25gm) Syringe IV 50 ml PRN PRN Administration Hypoglycemia Divalproex Sodium 500 mg 10/09/18 22:00 10/19/18 10:[address] PO 500 mg BID JAMIL Administration Epoetin Navi 20,000 unit 10/18/18 11:50 10/18/18 16:00 Procrit SUB-Q 20,000 unit JUDE PRN Administration hemodialysis Famotidine 20 mg 10/10/18 12:00 10/19/18 10:01 Pepcid PO 20 mg DAILY JAMIL Administration Ferrous Sulfate 325 mg 10/10/18 10:00 10/19/18 10:01 Feosol PO 325 mg QDAY JAMIL Administration Furosemide 80 mg 10/16/18 18:00 10/19/18 05:11 Lasix IV 80 mg 0600,1800 JAMIL Administration Gabapentin 300 mg 10/15/18 10:00 10/19/18 10:01 Neurontin PO 300 mg DAILY JAMIL Administration Heparin Sodium (Porcine) 5,000 unit 10/11/18 15:00 10/19/18 05:11 Heparin SUB-Q 5,000 unit Q8HR JAMIL Administration Hydralazine HCl 20 mg 10/13/18 18:43 10/13/18 20:00 Apresoline IV 20 mg Q4HR PRN Administration Increased Blood Pressure Sodium Chloride 100 mls @ 999 mls/hr 10/18/18 11:50 Nacl 0.9% IV JUDE PRN Hypotension Insulin Human Isoph/Insulin Regular 10 unit 10/18/18 08:30 10/19/18 08:42 Humulin 70/30 SUB-Q Not Given BIDDIAB JAMIL Insulin Human Regular 0 units 10/10/18 11:30 10/19/18 12:27 Humulin R SUB-Q Not Given ACHS [facility] Protocol Magnesium Hydroxide 30 ml 10/17/18 14:28 10/19/18 10:58 Milk Of Magnesia PO 30 ml QDAY PRN Administration Constipation Oxycodone/Acetaminophen 1 tab 10/19/18 10:18 10/19/18 10:58 Percocet 5/325 PO 1 tab Q8H PRN Administration Pain, Moderate (4-6) Pravastatin Sodium 40 mg 10/09/18 22:00 10/18/18 22:04 Pravachol PO 40 mg QHS JAMIL Administration Risperidone 1 mg 10/09/18 22:00 10/18/18 22:05 Risperdal PO 1 mg QHS JAMIL Administration Sodium Chloride 10 ml 10/09/18 13:00 10/19/18 10:02 Sodium Chloride Flush Syringe 10 Ml IV 10 ml BID JAMIL Administration Sodium Chloride 10 ml 10/09/18 13:00 Sodium Chloride Flush Syringe 10 Ml IV PRN PRN LINE FLUSH
[2018-10-19] MEDS ORDERED: NACL 0.9% 100 ML IV PRN (14:59)
[2018-10-19] MEDS ORDERED: NACL 0.9 (PRIMING MACHINE ONLY DIALYSIS) MC ONE (17:31)
[2018-10-19] MEDS: PROCRIT SUB-Q PRN (17:53)
[2018-10-19] MEDS: PRAVACHOL PO SCH (21:49)
[2018-10-19] MEDS: RisperDAL PO SCH (21:49)
[2018-10-20] MEDS: LASIX IV SCH ×2 (05:34→19:08)
[2018-10-20] MEDS: HEPARIN SUB-Q SCH ×3 (05:35→22:16)
[2018-10-20 06:11] LABS: Calcium 8.7 mg/dL (8.4-10.2)
--- NOTE | 2018-10-20 08:18 | Progress Note ---
Assessment and Plan Assessment and plan: --Altered mental status/Acute encephalopathy ; present on admission head CT with no acute process, currently improved, supportive care --Bilateral moderate pleural effusion; Spontaneous improvement of right pleural effusion from 300 mL- 31 mL Left pleural effusion decreased from 421 mL-112 mL No indication for thoracentesis, continue hemodialysis --MAXIMO / hyperkalemia : HD per nephro --Hypotension- s/p vasopressor , currently hypertensive. --NSTEMI type II- s/p heparin drip, obtained 2d echo, cardiology evaluated and signed off Outpatient follow-up for further evaluation and management --Acute on chronic systolic CHF: EF 35-40%, cont aspirin/statin, monitor daily wt, ins/os, restrict fluid --Sinus bradycardia -resolved, avoid beta blockers --Anemia, chronic kidney disease; closely monitor --HTN, continue current antihypertensives and when necessary medications --DM, cont SSI, Accu-Cheks, ADA diet, insulin as needed --HLP, cont statin -- h/o psych disorder, supportive care, consult psych for disposition and management --Extensive scrotal swelling, ultrasound; thick skin, testis and epididymis normal --DC planning for case management. Disposition-per psych and nephrology Plan of care is reviewed with the patient's nurse and case management History Interval history: Patient seen and examined medical records reviewed Patient feels slightly better, anxious to go home No new complaints, Vital signs noted Alert awake oriented 3 not in acute distress Hospitalist Physical - Constitutional Vitals: Temp Pulse Resp BP Pulse Ox 98.4 F 77 18 146/64 98 10/19/18 23:59 10/20/18 04:00 10/19/18 23:59 10/19/18 23:59 10/19/18 19:26 General appearance: Present: no acute distress, well-nourished - EENT Eyes: Present: PERRL, EOM intact - Neck Neck: Present: supple, normal ROM - Respiratory Respiratory effort: normal Respiratory: bilateral: diminished, negative: rales, rhonchi, wheezing - Cardiovascular Rhythm: regular Heart Sounds: Present: S1 & S2 - Extremities Extremities: no ischemia, No edema - Abdominal General gastrointestinal: soft, non-tender, non-distended, normal bowel sounds - Integumentary Integumentary: Present: clear, warm - Psychiatric Psychiatric: appropriate mood/affect, cooperative - Neurologic Neurologic: other (residual weakness) Results - Labs CBC & Chem 7: 10/19/18 04:53 10/20/18 05:30 Labs: Laboratory Last Values WBC 8.5 K/mm3 (4.5-11.0) 10/19/18 04:53 RBC 2.74 M/mm3 (3.65-5.03) L 10/19/18 04:53 Hgb 7.5 gm/dl (11.8-15.2) L 10/19/18 04:53 Hct 23.0 % (35.5-45.6) L 10/19/18 04:53 MCV 84 fl (84-94) 10/19/18 04:53 MCH 27 pg (28-32) L 10/19/18 04:53 MCHC 33 % (32-34) 10/19/18 04:53 RDW 17.9 % (13.2-15.2) H 10/19/18 04:53 Plt Count 222 K/mm3 (140-440) 10/19/18 04:53 Lymph % (Auto) 11.3 % (13.4-35.0) L 10/19/18 04:53 [place] % (Auto) 14.5 % (0.0-7.3) H 10/19/18 04:53 Eos % (Auto) 2.5 % (0.0-4.3) 10/19/18 04:53 Baso % (Auto) 0.3 % (0.0-1.8) 10/19/18 04:53 Lymph # 1.0 K/mm3 (1.2-5.4) L 10/19/18 04:53 [place] # 1.2 K/mm3 (0.0-0.8) H 10/19/18 04:53 Eos # 0.2 K/mm3 (0.0-0.4) 10/19/18 04:53 Baso # 0.0 K/mm3 (0.0-0.1) 10/19/18 04:53 Seg Neutrophils % 71.4 % (40.0-70.0) H 10/19/18 04:53 Seg Neutrophils # 6.0 K/mm3 (1.8-7.7) 10/19/18 04:53 PT 14.0 Sec. (12.2-14.9) 10/17/18 Unknown INR 1.04 (0.87-1.13) 10/17/18 Unknown APTT 42.4 Sec. (24.2-36.6) H 10/09/18 14:25 D-Dimer 927.57 ng/mlDDU (0-234) H 10/10/18 13:36 Heparin Anti-Xa Level 0.49 U.I./ml (0.3-0.7) 10/11/18 04:31 POC ABG pH 7.359 (7.35-7.45) 10/15/18 13:21 POC ABG pCO2 48.4 (35-45) H 10/15/18 13:21 POC ABG pO2 77 (80-105) L 10/15/18 13:21 POC ABG HCO3 27.3 10/15/18 13:21 POC ABG Total CO2 29 10/15/18 13:21 POC ABG O2 Sat 95 10/15/18 13:21 POC ABG Base Excess 2 10/15/18 13:21 FiO2 21 % 10/15/18 13:21 Sodium 144 mmol/L (137-145) 10/20/18 05:30 Potassium 5.1 mmol/L (3.6-5.0) H 10/20/18 05:30 Chloride 102.8 mmol/L (98-107) 10/20/18 05:30 Carbon Dioxide 31 mmol/L (22-30) H 10/20/18 05:30 Anion Gap 15 mmol/L 10/20/18 05:30 BUN 40 mg/dL (9-20) H 10/20/18 05:30 Creatinine 1.6 mg/dL (0.8-1.5) H 10/20/18 05:30 Estimated GFR 56 ml/min 10/20/18 05:30 BUN/Creatinine Ratio 25 % 10/20/18 05:30 Glucose 84 mg/dL (75-100) 10/20/18 05:30 POC Glucose 132 (70-105) H 10/19/18 21:10 Hemoglobin A1c 8.2 % (4-6) H 10/10/18 05:00 Lactic Acid 0.60 mmol/L (0.7-2.0) L 10/10/18 13:36 Calcium 8.7 mg/dL (8.4-10.2) 10/20/18 05:30 Phosphorus 4.40 mg/dL (2.5-4.5) 10/14/18 06:06 Magnesium 2.40 mg/dL (1.7-2.3) H 10/14/18 06:06 Total Bilirubin < 0.20 mg/dL (0.1-1.2) 10/11/18 20:45 AST 31 units/L (5-40) 10/11/18 20:45 ALT 56 units/L (7-56) 10/11/18 20:45 Alkaline Phosphatase 261 units/L (35-129) H 10/11/18 20:45 Total Creatine Kinase 481 units/L (55-170) H 10/09/18 11:22 CK-MB (CK-2) 20.5 ng/mL (0.0-4.0) H 10/09/18 11:22 CK-MB (CK-2) Rel Index 4.2 (0-4) H 10/09/18 11:22 Troponin T 0.139 ng/mL (0.00-0.029) H* 10/09/18 20:56 C-Reactive Protein 0.90 mg/dL (0.00-1.30) 10/10/18 13:36 NT-Pro-B Natriuret Pep 2963 pg/mL (0-450) H 10/09/18 11:22 Serum Total Protein 5.6 g/dL (6.1-8.1) L 10/15/18 05:39 Total Protein 6.2 g/dL (6.3-8.2) L 10/11/18 20:45 Albumin 2.5 g/dL (3.8-4.8) L 10/15/18 05:39 Albumin/Globulin Ratio 0.9 % 10/11/18 20:45 Dsqye-3-Hilkdonsr 0.4 g/dL (0.2-0.3) H 10/15/18 05:39 Dmhyy-5-Fxwsafpvu 0.7 g/dL (0.5-0.9) 10/15/18 05:39 Beta Globulins 0.4 g/dL (0.2-0.5) 10/15/18 05:39 Gamma Globulins 1.2 g/dL (0.8-1.7) 10/15/18 05:39 Abnorm Protein Band 1 see below 10/15/18 05:39 PEP Interpretation see below H 10/15/18 05:39 Triglycerides 24 mg/dL (2-149) 10/09/18 11:22 Cholesterol 115 mg/dL (50-199) 10/09/18 11:22 LDL Cholesterol Direct 49 mg/dL (50-130) L 10/09/18 11:22 HDL Cholesterol 73 mg/dL (40-59) H 10/09/18 11:22 Cholesterol/HDL Ratio 1.57 % 10/09/18 11:22 PTH Intact 152.8 pg/mL (15-65) H 10/17/18 05:22 Urine Color Tamie (Yellow) 10/10/18 22:30 Urine Turbidity Clear (Clear) 10/10/18 22:30 Urine pH 5.0 (5.0-7.0) 10/10/18 22:30 Ur Specific [place] 1.016 (1.003-1.030) 10/10/18 22:30 Urine Protein 100 mg/dl mg/dL (Negative) 10/10/18 22:30 Urine Glucose (UA) 50 mg/dL (Negative) 10/10/18 22:30 Urine Ketones Neg mg/dL (Negative) 10/10/18 22:30 Urine Blood Neg (Negative) 10/10/18 22:30 Urine Nitrite Neg (Negative) 10/10/18 22:30 Urine Bilirubin Neg (Negative) 10/10/18 22:30 Urine Urobilinogen 4.0 mg/dL (<2.0) 10/10/18 22:30 Ur Leukocyte Esterase Tr (Negative) 10/10/18 22:30 Urine WBC (Auto) 2.0 /HPF (0.0-6.0) 10/10/18 22:30 Urine RBC (Auto) 5.0 /HPF (0.0-6.0) 10/10/18 22:30 U Epithel Cells (Auto) < 1.0 /HPF (0-13.0) 10/10/18 22:30 Urine Bacteria (Auto) 1+ /HPF (Negative) 10/10/18 22:30 Hyaline Casts 1 /LPF 10/10/18 22:30 Urine Mucus Few /HPF 10/10/18 22:30 Urine Creatinine 118.6 mg/dL (0.1-20.0) H 10/10/18 22:30 Protein/Creatinin Ratio 1.28 10/10/18 22:30 Urine Sodium 35 mmol/L 10/10/18 22:30 Urine Total Protein 152 mg/dL (5-11.8) H 10/10/18 22:30 BROWN Screen Negative (Negative) 10/15/18 05:39 Proteinase 3 (PR3) Ab <1.0 AI (<1.0) 10/15/18 05:39 Myeloperoxidase Ab <1.0 AI (<1.0) 10/15/18 05:39 Complement C3 129 mg/dL (82-185) 10/15/18 05:39 Complement C4 34 mg/dL (15-53) 10/15/18 05:39 Hepatitis A IgM Ab Non-reactive (NonReactive) 10/11/18 13:24 Hep Bs Antigen Non-reactive (Negative) 10/11/18 13:24 Hep B Core IgM Ab Non-reactive (NonReactive) 10/11/18 13:24 Hepatitis C Antibody Non-reactive (NonReactive) 10/11/18 13:24 Nutrition/Malnutrition Assess - Dietary Evaluation Nutrition/Malnutrition Findings: Nutrition Notes Start: 10/16/18 16:17 Freq: Status: Active Protocol: Document 10/18/18 18:14 RM (Rec: 10/18/18 18:24 [email or web address]) Nutrition Notes Initial or Follow up Reassessment Current Diagnosis Acute Kidney Injury Diabetes Hypertension Heart Failure Other Pertinent Diagnosis Encephalopathy, R leg diabetic PU, AMS Current Diet Cardiac/Renal/Consistent Carb w/Nepro Butter Pecan BID Labs/Tests K 5.6 Pertinent Medications Lasix Height 6 ft 2 in Weight 119 kg [place] Body Weight (lbs) 190.0 BMI 33.7 Subjective/Other Information Pt not in room at time of visit. Tech stated that pt ate most of her meals yesterday and drank all of the Nepro yesterday. Tech unsure of how much pt ate today. Percent of energy/protein needs met: 90%/94% Burn Absent Trauma Absent #1 Nutrition Diagnosis Inadequate oral intake As Evidenced by Signs and Symptoms pt meeting 90% of calorie needs and 94% of protein needs Diagnosis Progress(for reassessment Resolved documentation) Is patient on ventilator? No Is Patient Ambulatory and/or Out of Bed No REE-([facility]-confined to bed) 7215.130 Calculation Used for Recommendations [facility] Additional Notes Protein Needs: 103-134g (1-1. 3g/kg, 103kg adjBW) Fluid Needs: 1ml/kcal Nutrition Intervention Change Diet Order: Continue current Add Supplement/Snack (indicate name/kcal Continue Nepro BID /protein ) Provides kCal: 850 Provides Protein (gm) 38 Goal #1 Meet at least 75% of calorie and protein needs via PO and ONS intakes Anticipated Discharge Needs: Cardiac/Consistent Carb/Renal Follow-Up By: 10/25/18 Additional Comments Follow for PO and ONS intakes
[2018-10-20] MEDS ORDERED: KIONEX PO ONE (08:52)
[2018-10-20] MEDS: HumuLIN R SUB-Q SCH ×3 (09:17→22:16)
[2018-10-20] MEDS: COREG PO SCH ×2 (10:38→22:19)
[2018-10-20] MEDS: PEPCID PO SCH (10:38)
[2018-10-20] MEDS: ASPIRIN PO SCH (10:39)
[2018-10-20] MEDS: NEURONTIN PO SCH (10:39)
[2018-10-20] MEDS: FEOSOL PO SCH (10:39)
--- NOTE | 2018-10-20 12:59 | Progress Note ---
Assessment and Plan 1. Acute kidney injury: MAXIMO likely Vasomotor / hemodynamic mediated in the setting of hypotension. Patient was started on hemodialysis on 10/11/2018 due to continued decline in the Renal function and hyperkalemia. He was last dialyzed on 10/18/18. 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 Monitor renal function and [employer] needs. 2. FEN: Volume overload, much better/ s/p multiple sessions of Isolated UF. Continue IV Lasix and PO Metolazone. 3. CHF exacerbation: Was on Dobutamine drip. 4. Hypotension: BP is better. 5. : Will remove Miranda catheter. Informed RN to do bladder scan. 6. Anemia: Epogen, monitor. Subjective Date of service: 10/20/18 Principal diagnosis: Severe Sepsis with Shock; Acute encephalopathy; MAXIMO; Diabetes II; CMOP Interval history: Patient was seen and examined at the bedside. Feeling better. Objective - Vital Signs Vital signs: Vital Signs - 12hr 10/20/18 04:00 Pulse Rate 77 - General Appearance General appearance: well-developed, well-nourished, appears stated age, other (not in distress) EENT: ATNC, PERRL, hearing intact, vision intact Neck: supple Respiratory: Present: Clear to Ascultation Cardiology: regular, S1S2, no murmurs Gastrointestinal: normoactive bowel sounds, no tenderness, no distended Integumentary: ulcer (right leg, left foot dressing) Neurologic: no focal deficit, no asterixis, alert and oriented x3 Musculoskeletal: other (trace dependent edema ) - Lab 10/19/18 04:53 10/20/18 05:30 Most recent lab results Calcium 8.7 mg/dL (8.4-10.2) 10/20/18 05:30 Phosphorus 4.40 mg/dL (2.5-4.5) 10/14/18 06:06 Magnesium 2.40 mg/dL (1.7-2.3) H 10/14/18 06:06 Urine Creatinine 118.6 mg/dL (0.1-20.0) H 10/10/18 22:30 Urine Sodium 35 mmol/L 10/10/18 22:30 Urine Total Protein 152 mg/dL (5-11.8) H 10/10/18 22:30 Medications & Allergies - Medications Allergies/Adverse Reactions: Allergies No Known Allergies Allergy (Unverified 10/09/18 10:44) Home Medications: Home Medications Medication Instructions Recorded Confirmed Last Taken Type Carvedilol [Coreg] 3.125 mg PO BID 10/09/18 10/09/18 Unknown History Divalproex [DepaKOMARIO DR] 500 mg PO BID 10/09/18 10/09/18 Unknown History Ferrous Sulfate [Feosol] 325 mg PO QDAY 10/09/18 10/09/18 Unknown History Furosemide [Lasix] 80 mg PO DAILY 10/09/18 10/09/18 Unknown History Gabapentin [Neurontin] 300 mg PO Q8HR 10/09/18 10/09/18 Unknown History ISOSORBIDE MONOnitrate [Imdur ER] 30 mg PO DAILY 10/09/18 10/09/18 Unknown History Insulin Glargine,Hum.rec.anlog 40 units SQ QHS 10/09/18 10/09/18 Unknown History [Lantus] Magnesium Oxide [Mag-Ox] 400 mg PO DAILY 10/09/18 10/09/18 Unknown History Simvastatin (Nf) [Zocor TAB] 20 mg PO QHS 10/09/18 10/09/18 Unknown History Sulfamethoxazole/Trimethoprim 1 each PO BID 10/09/18 10/09/18 Unknown History [Bactrim DS TAB] glipiZIDE [Glipizide] 10 mg PO DAILY 10/09/18 10/09/18 Unknown History hydrALAZINE [Apresoline TAB] 100 mg PO BID 10/09/18 10/09/18 Unknown History risperiDONE [RisperDAL] 1 mg PO QHS 10/09/18 10/09/18 Unknown History Active Medications: Generic Name Dose Route Start Last Admin Trade Name Freq PRN Reason Stop Dose Admin Albumin Human 25 gm 10/11/18 09:35 Alburx 25% (Albumin) IV JUDE PRN Hypotension Aspirin 325 mg 10/10/18 10:00 10/20/18 10:39 Aspirin PO 325 mg QDAY JAMIL Administration Carvedilol 6.25 mg 10/14/18 22:00 10/20/18 10:38 Coreg PO 6.25 mg BID JAMIL Administration Dextrose 50 ml 10/10/18 11:03 10/16/18 07:14 D50w (25gm) Syringe IV 50 ml PRN PRN Administration Hypoglycemia Divalproex Sodium 500 mg 10/09/18 22:00 10/20/18 10:[address] PO 500 mg BID JAMIL Administration Epoetin Navi 20,000 unit 10/18/18 11:50 10/19/18 17:53 Procrit SUB-Q 20,000 unit JUDE PRN Administration hemodialysis Famotidine 20 mg 10/10/18 12:00 10/20/18 10:38 Pepcid PO 20 mg DAILY JAMIL Administration Ferrous Sulfate 325 mg 10/10/18 10:00 10/20/18 10:39 Feosol PO 325 mg QDAY JAMIL Administration Furosemide 80 mg 10/16/18 18:00 10/20/18 05:34 Lasix IV 80 mg 0600,1800 JAMIL Administration Gabapentin 300 mg 10/15/18 10:00 10/20/18 10:39 Neurontin PO 300 mg DAILY JAMIL Administration Heparin Sodium (Porcine) 5,000 unit 10/11/18 15:00 10/20/18 05:35 Heparin SUB-Q 5,000 unit Q8HR JAMIL Administration Hydralazine HCl 20 mg 10/13/18 18:43 10/13/18 20:00 Apresoline IV 20 mg Q4HR PRN Administration Increased Blood Pressure Sodium Chloride 100 mls @ 999 mls/hr 10/19/18 14:59 Nacl 0.9% IV JUDE PRN Hypotension Insulin Human Regular 0 units 10/10/18 11:30 10/20/18 09:17 Humulin R SUB-Q Not Given ACHS [facility] Protocol Magnesium Hydroxide 30 ml 10/17/18 14:28 10/19/18 10:58 Milk Of Magnesia PO 30 ml QDAY PRN Administration Constipation Metolazone 5 mg 10/20/18 17:30 Zaroxolyn PO DAILY@1730 [facility] Oxycodone/Acetaminophen 1 tab 10/19/18 10:18 10/19/18 17:48 Percocet 5/325 PO 1 tab Q8H PRN Administration Pain, Moderate (4-6) Pravastatin Sodium 40 mg 10/09/18 22:00 10/19/18 21:49 Pravachol PO 40 mg QHS JAMIL Administration Risperidone 1 mg 10/09/18 22:00 10/19/18 21:49 Risperdal PO 1 mg QHS JAMIL Administration Sodium Chloride 10 ml 10/09/18 13:00 10/19/18 21:51 Sodium Chloride Flush Syringe 10 Ml IV 10 ml BID JAMIL Administration Sodium Chloride 10 ml 10/09/18 13:00 Sodium Chloride Flush Syringe 10 Ml IV PRN PRN LINE FLUSH
--- NOTE | 2018-10-20 14:53 | Progress Note ---
Assessment and Plan Severe Sepsis syndrome. Shock (cardiogenic versus septic) Acute encephalopathy. Possible seizures. History of diabetes CMOP Leukopenia. Anemia that is normocytic. Acute hypercapnic respiratory acidosis. Hyperkalemia. Acute kidney injury. Non-ST elevation myocardial infarction. Hypoglycemia. Possible peripheral vascular disease. Obesity. Bilateral moderate pleural effusion, did not require drainage - supplemental oxygen to keep sats > 90% - BIPAP qhs possible sleep apnea - PT/OT as tolerated - aspiration precautions - prn bronchodilators with pulmonary hygiene per RT -cardio-protective measures -continue all current care -psych evalaution pending for final discharge planning Stable from pulmonary standpoint for discharge planning. Needs outpatient pulmonary follow up on discharge Subjective Date of service: 10/20/18 Principal diagnosis: Severe Sepsis with Shock; Acute encephalopathy; MAXIMO; Diabetes II; CMOP Interval history: Patient is seen today for: Severe Sepsis syndrome; Shock (cardiogenic versus septic); Acute encephalopathy; Possible seizures; History of diabetes; CMOP Seen and examined at bedside; 24hour events reviewed; nursing and respiratory care staff consulted; no adverse overnight events reported to me; resting peacefully in bed; denies acute chest pains or palpitations; no chest pain, no shortness of breath. Awaiting psych evalaution Objective Vital Signs - 12hr 10/20/18 04:00 Pulse Rate 77 Constitutional: no acute distress, alert, other (middle aged AAM, normocephalic and atraumatic with normal respiratory effort) Eyes: non-icteric ENT: oropharynx moist Neck: supple, no lymphadenopathy, no JVD Effort: normal Ascultation: Bilateral: diminished breath sounds, rales (bases) Percussion: Bilateral: not dull Cardiovascular: regular rate and rhythm Gastrointestinal: normoactive bowel sounds, soft, non-tender, non-distended Integumentary: rash (feet) Extremities: no cyanosis, pulses normal, no ischemia or petechiae, edema (1+) Neurologic: normal mental status, non-focal exam, pupils equal and round, motor strength normal and, other (sensory numbness to feet) Psychiatric: mood appropriate, affect normal, other CBC and BMP: 10/21/18 06:26 10/21/18 06:26 ABG, PT/INR, D-dimer: ABG POC ABG pH 7.359 (7.35-7.45) 10/15/18 13:21 POC ABG pCO2 48.4 (35-45) H 10/15/18 13:21 POC ABG pO2 77 (80-105) L 10/15/18 13:21 POC ABG HCO3 27.3 10/15/18 13:21 POC ABG Total CO2 29 10/15/18 13:21 POC ABG O2 Sat 95 10/15/18 13:21 PT/INR, D-dimer PT 14.0 Sec. (12.2-14.9) 10/17/18 Unknown INR 1.04 (0.87-1.13) 10/17/18 Unknown D-Dimer 927.57 ng/mlDDU (0-234) H 10/10/18 13:36 Abnormal lab findings: Abnormal Labs 10/09/18 10/09/18 10/09/18 11:22 11:22 11:22 WBC 3.3 L RBC 3.03 L Hgb 8.4 L Hct 25.8 L MCH RDW 18.7 H Lymph % (Auto) [place] % (Auto) 12.1 H Eos % (Auto) 4.6 H Lymph # 0.5 L [place] # Seg Neutrophils % APTT 42.8 H D-Dimer Heparin Anti-Xa Level POC ABG pH POC ABG pCO2 POC ABG pO2 Potassium 5.2 H Chloride 108.2 H Carbon Dioxide BUN 49 H Creatinine 1.9 H Glucose 153 H POC Glucose Hemoglobin A1c Lactic Acid Calcium Magnesium Alkaline Phosphatase Total Creatine Kinase 481 H CK-MB (CK-2) 20.5 H CK-MB (CK-2) Rel Index 4.2 H Troponin T 0.153 H* NT-Pro-B Natriuret Pep 2963 H Serum Total Protein Total Protein Albumin Nclsc-6-Wifpmnurz PEP Interpretation LDL Cholesterol Direct 49 L HDL Cholesterol 73 H PTH Intact Urine Creatinine Urine Total Protein 10/09/18 10/09/18 10/09/18 13:43 14:25 14:25 WBC RBC Hgb 8.2 L Hct 26.2 L MCH RDW Lymph % (Auto) [place] % (Auto) Eos % (Auto) Lymph # [place] # Seg Neutrophils % APTT 42.4 H D-Dimer Heparin Anti-Xa Level POC ABG pH POC ABG pCO2 POC ABG pO2 Potassium Chloride Carbon Dioxide BUN Creatinine Glucose POC Glucose 167 H Hemoglobin A1c Lactic Acid Calcium Magnesium Alkaline Phosphatase Total Creatine Kinase CK-MB (CK-2) CK-MB (CK-2) Rel Index Troponin T NT-Pro-B Natriuret Pep Serum Total Protein Total Protein Albumin Hstsg-1-Tjfefobis PEP Interpretation LDL Cholesterol Direct HDL Cholesterol PTH Intact Urine Creatinine Urine Total Protein 10/09/18 10/09/18 10/09/18 17:28 20:56 21:23 WBC RBC Hgb Hct MCH RDW Lymph % (Auto) [place] % (Auto) Eos % (Auto) Lymph # [place] # Seg Neutrophils % APTT D-Dimer Heparin Anti-Xa Level 0.28 L POC ABG pH POC ABG pCO2 POC ABG pO2 Potassium Chloride Carbon Dioxide BUN Creatinine Glucose POC Glucose Hemoglobin A1c Lactic Acid Calcium Magnesium Alkaline Phosphatase Total Creatine Kinase CK-MB (CK-2) CK-MB (CK-2) Rel Index Troponin T 0.136 H* 0.139 H* NT-Pro-B Natriuret Pep Serum Total Protein Total Protein Albumin Teiaj-3-Ozeprents PEP Interpretation LDL Cholesterol Direct HDL Cholesterol PTH Intact Urine Creatinine Urine Total Protein 10/10/18 10/10/18 10/10/18 00:10 05:00 05:00 WBC 3.3 L RBC 2.99 L Hgb 8.2 L Hct 25.9 L MCH 27 L RDW 19.2 H Lymph % (Auto) [place] % (Auto) 13.2 H Eos % (Auto) 5.8 H Lymph # 0.5 L [place] # Seg Neutrophils % APTT D-Dimer Heparin Anti-Xa Level POC ABG pH POC ABG pCO2 POC ABG pO2 Potassium 5.6 H Chloride 110.8 H Carbon Dioxide BUN 50 H Creatinine 2.2 H Glucose 52 L POC Glucose 60 L Hemoglobin A1c Lactic Acid Calcium 8.1 L Magnesium Alkaline Phosphatase Total Creatine Kinase CK-MB (CK-2) CK-MB (CK-2) Rel Index Troponin T NT-Pro-B Natriuret Pep Serum Total Protein Total Protein Albumin Lxida-8-Kbvtegtnm PEP Interpretation LDL Cholesterol Direct HDL Cholesterol PTH Intact Urine Creatinine Urine Total Protein 10/10/18 10/10/18 10/10/18 05:00 06:11 11:30 WBC RBC Hgb Hct MCH RDW Lymph % (Auto) [place] % (Auto) Eos % (Auto) Lymph # [place] # Seg Neutrophils % APTT D-Dimer Heparin Anti-Xa Level POC ABG pH POC ABG pCO2 POC ABG pO2 Potassium Chloride Carbon Dioxide BUN Creatinine Glucose POC Glucose 57 L 48 L Hemoglobin A1c 8.2 H Lactic Acid Calcium Magnesium Alkaline Phosphatase Total Creatine Kinase CK-MB (CK-2) CK-MB (CK-2) Rel Index Troponin T NT-Pro-B Natriuret Pep Serum Total Protein Total Protein Albumin Twlyz-4-Wxloctfxe PEP Interpretation LDL Cholesterol Direct HDL Cholesterol PTH Intact Urine Creatinine Urine Total Protein 10/10/18 10/10/18 10/10/18 12:22 13:36 13:36 WBC RBC Hgb Hct MCH RDW Lymph % (Auto) [place] % (Auto) Eos % (Auto) Lymph # [place] # Seg Neutrophils % APTT D-Dimer 927.57 H Heparin Anti-Xa Level POC ABG pH 7.286 L POC ABG pCO2 47.3 H POC ABG pO2 65 L Potassium Chloride Carbon Dioxide BUN Creatinine Glucose POC Glucose Hemoglobin A1c Lactic Acid 0.60 L Calcium Magnesium Alkaline Phosphatase Total Creatine Kinase CK-MB (CK-2) CK-MB (CK-2) Rel Index Troponin T NT-Pro-B Natriuret Pep Serum Total Protein Total Protein Albumin Cwtmc-4-Qnzauwivp PEP Interpretation LDL Cholesterol Direct HDL Cholesterol PTH Intact Urine Creatinine Urine Total Protein 10/10/18 10/10/18 10/10/18 16:42 21:12 22:30 WBC RBC Hgb Hct MCH RDW Lymph % (Auto) [place] % (Auto) Eos % (Auto) Lymph # [place] # Seg Neutrophils % APTT D-Dimer Heparin Anti-Xa Level POC ABG pH POC ABG pCO2 POC ABG pO2 Potassium Chloride Carbon Dioxide BUN Creatinine Glucose POC Glucose 122 H 119 H Hemoglobin A1c Lactic Acid Calcium Magnesium Alkaline Phosphatase Total Creatine Kinase CK-MB (CK-2) CK-MB (CK-2) Rel Index Troponin T NT-Pro-B Natriuret Pep Serum Total Protein Total Protein Albumin Nqpxv-5-Yxzzrgufy PEP Interpretation LDL Cholesterol Direct HDL Cholesterol PTH Intact Urine Creatinine 118.6 H Urine Total Protein 152 H 10/11/18 10/11/18 10/11/18 04:31 04:31 13:15 WBC RBC Hgb 8.7 L Hct 27.9 L MCH RDW Lymph % (Auto) [place] % (Auto) Eos % (Auto) Lymph # [place] # Seg Neutrophils % APTT D-Dimer Heparin Anti-Xa Level POC ABG pH POC ABG pCO2 POC ABG pO2 Potassium 6.6 H* 6.4 H* Chloride Carbon Dioxide BUN 55 H Creatinine 2.9 H Glucose POC Glucose Hemoglobin A1c Lactic Acid Calcium 7.6 L Magnesium Alkaline Phosphatase Total Creatine Kinase CK-MB (CK-2) CK-MB (CK-2) Rel Index Troponin T NT-Pro-B Natriuret Pep Serum Total Protein Total Protein Albumin Xtekd-3-Zwfubnabq PEP Interpretation LDL Cholesterol Direct HDL Cholesterol PTH Intact Urine Creatinine Urine Total Protein 10/11/18 10/11/18 10/12/18 20:45 22:37 04:25 WBC RBC Hgb Hct MCH RDW Lymph % (Auto) [place] % (Auto) Eos % (Auto) Lymph # [place] # Seg Neutrophils % APTT D-Dimer Heparin Anti-Xa Level POC ABG pH POC ABG pCO2 POC ABG pO2 Potassium Chloride Carbon Dioxide BUN 37 H 38 H Creatinine 2.4 H 2.3 H Glucose POC Glucose 117 H Hemoglobin A1c Lactic Acid Calcium 7.5 L 7.6 L Magnesium Alkaline Phosphatase 261 H Total Creatine Kinase CK-MB (CK-2) CK-MB (CK-2) Rel Index Troponin T NT-Pro-B Natriuret Pep Serum Total Protein Total Protein 6.2 L Albumin 3.0 L Ubakb-0-Mreysqicg PEP Interpretation LDL Cholesterol Direct HDL Cholesterol PTH Intact Urine Creatinine Urine Total Protein 10/12/18 10/12/18 10/13/18 10:02 21:33 03:28 WBC RBC Hgb 7.6 L 7.7 L Hct 24.1 L 23.8 L MCH RDW Lymph % (Auto) [place] % (Auto) Eos % (Auto) Lymph # [place] # Seg Neutrophils % APTT D-Dimer Heparin Anti-Xa Level POC ABG pH POC ABG pCO2 POC ABG pO2 Potassium Chloride Carbon Dioxide BUN Creatinine Glucose POC Glucose 109 H Hemoglobin A1c Lactic Acid Calcium Magnesium Alkaline Phosphatase Total Creatine Kinase CK-MB (CK-2) CK-MB (CK-2) Rel Index Troponin T NT-Pro-B Natriuret Pep Serum Total Protein Total Protein Albumin Egrro-7-Irfwwyclg PEP Interpretation LDL Cholesterol Direct HDL Cholesterol PTH Intact Urine Creatinine Urine Total Protein 10/13/18 10/13/18 10/13/18 03:28 08:27 15:04 WBC RBC Hgb Hct MCH RDW Lymph % (Auto) [place] % (Auto) Eos % (Auto) Lymph # [place] # Seg Neutrophils % APTT D-Dimer Heparin Anti-Xa Level POC ABG pH POC ABG pCO2 POC ABG pO2 Potassium Chloride Carbon Dioxide BUN 38 H Creatinine 1.9 H Glucose POC Glucose 136 H 160 H Hemoglobin A1c Lactic Acid Calcium 8.3 L Magnesium Alkaline Phosphatase Total Creatine Kinase CK-MB (CK-2) CK-MB (CK-2) Rel Index Troponin T NT-Pro-B Natriuret Pep Serum Total Protein Total Protein Albumin Yasby-5-Mveiavuqa PEP Interpretation LDL Cholesterol Direct HDL Cholesterol PTH Intact Urine Creatinine Urine Total Protein 10/13/18 10/13/18 10/14/18 16:53 23:06 06:06 WBC RBC Hgb Hct MCH RDW Lymph % (Auto) [place] % (Auto) Eos % (Auto) Lymph # [place] # Seg Neutrophils % APTT D-Dimer Heparin Anti-Xa Level POC ABG pH POC ABG pCO2 POC ABG pO2 Potassium Chloride 107.7 H Carbon Dioxide BUN 39 H Creatinine 1.8 H Glucose 116 H POC Glucose 161 H 213 H Hemoglobin A1c Lactic Acid Calcium Magnesium 2.40 H Alkaline Phosphatase Total Creatine Kinase CK-MB (CK-2) CK-MB (CK-2) Rel Index Troponin T NT-Pro-B Natriuret Pep Serum Total Protein Total Protein Albumin Ywtro-5-Jfwhixmre PEP Interpretation LDL Cholesterol Direct HDL Cholesterol PTH Intact Urine Creatinine Urine Total Protein 10/14/18 10/14/18 10/14/18 06:34 11:01 13:50 WBC RBC Hgb 7.8 L Hct 24.8 L MCH RDW Lymph % (Auto) [place] % (Auto) Eos % (Auto) Lymph # [place] # Seg Neutrophils % APTT D-Dimer Heparin Anti-Xa Level POC ABG pH POC ABG pCO2 POC ABG pO2 Potassium Chloride Carbon Dioxide BUN Creatinine Glucose POC Glucose 118 H 67 L Hemoglobin A1c Lactic Acid Calcium Magnesium Alkaline Phosphatase Total Creatine Kinase CK-MB (CK-2) CK-MB (CK-2) Rel Index Troponin T NT-Pro-B Natriuret Pep Serum Total Protein Total Protein Albumin Lwuzq-6-Xxqpouhdu PEP Interpretation LDL Cholesterol Direct HDL Cholesterol PTH Intact Urine Creatinine Urine Total Protein 10/14/18 10/15/18 10/15/18 21:37 05:39 05:39 WBC RBC Hgb 7.6 L Hct 23.5 L MCH RDW Lymph % (Auto) [place] % (Auto) Eos % (Auto) Lymph # [place] # Seg Neutrophils % APTT D-Dimer Heparin Anti-Xa Level POC ABG pH POC ABG pCO2 POC ABG pO2 Potassium Chloride Carbon Dioxide BUN Creatinine Glucose POC Glucose 125 H Hemoglobin A1c Lactic Acid Calcium Magnesium Alkaline Phosphatase Total Creatine Kinase CK-MB (CK-2) CK-MB (CK-2) Rel Index Troponin T NT-Pro-B Natriuret Pep Serum Total Protein 5.6 L Total Protein Albumin 2.5 L Savwg-5-Xdhhxhbmr 0.4 H PEP Interpretation see below H LDL Cholesterol Direct HDL Cholesterol PTH Intact Urine Creatinine Urine Total Protein 10/15/18 10/15/18 10/15/18 05:39 06:27 07:48 WBC RBC Hgb Hct MCH RDW Lymph % (Auto) [place] % (Auto) Eos % (Auto) Lymph # [place] # Seg Neutrophils % APTT D-Dimer Heparin Anti-Xa Level POC ABG pH POC ABG pCO2 POC ABG pO2 Potassium Chloride Carbon Dioxide BUN 45 H Creatinine 2.1 H Glucose 59 L POC Glucose 46 L 65 L Hemoglobin A1c Lactic Acid Calcium 8.3 L Magnesium Alkaline Phosphatase Total Creatine Kinase CK-MB (CK-2) CK-MB (CK-2) Rel Index Troponin T NT-Pro-B Natriuret Pep Serum Total Protein Total Protein Albumin Kmhym-5-Hlljfhsat PEP Interpretation LDL Cholesterol Direct HDL Cholesterol PTH Intact Urine Creatinine Urine Total Protein 10/15/18 10/15/18 10/15/18 13:21 13:24 21:23 WBC RBC Hgb Hct MCH RDW Lymph % (Auto) [place] % (Auto) Eos % (Auto) Lymph # [place] # Seg Neutrophils % APTT D-Dimer Heparin Anti-Xa Level POC ABG pH POC ABG pCO2 48.4 H POC ABG pO2 77 L Potassium Chloride Carbon Dioxide BUN Creatinine Glucose POC Glucose 106 H 160 H Hemoglobin A1c Lactic Acid Calcium Magnesium Alkaline Phosphatase Total Creatine Kinase CK-MB (CK-2) CK-MB (CK-2) Rel Index Troponin T NT-Pro-B Natriuret Pep Serum Total Protein Total Protein Albumin Tklfe-4-Rwinlimrr PEP Interpretation LDL Cholesterol Direct HDL Cholesterol PTH Intact Urine Creatinine Urine Total Protein 10/16/18 10/16/18 10/16/18 06:25 06:49 21:42 WBC RBC Hgb Hct MCH RDW Lymph % (Auto) [place] % (Auto) Eos % (Auto) Lymph # [place] # Seg Neutrophils % APTT D-Dimer Heparin Anti-Xa Level POC ABG pH POC ABG pCO2 POC ABG pO2 Potassium Chloride 107.7 H Carbon Dioxide BUN 53 H Creatinine 2.2 H Glucose 61 L POC Glucose 51 L 153 H Hemoglobin A1c Lactic Acid Calcium Magnesium Alkaline Phosphatase Total Creatine Kinase CK-MB (CK-2) CK-MB (CK-2) Rel Index Troponin T NT-Pro-B Natriuret Pep Serum Total Protein Total Protein Albumin Wgsvh-2-Vvmxycybh PEP Interpretation LDL Cholesterol Direct HDL Cholesterol PTH Intact Urine Creatinine Urine Total Protein 10/17/18 10/17/18 10/17/18 05:22 05:22 05:22 WBC RBC Hgb 7.6 L Hct 23.1 L MCH RDW Lymph % (Auto) [place] % (Auto) Eos % (Auto) Lymph # [place] # Seg Neutrophils % APTT D-Dimer Heparin Anti-Xa Level POC ABG pH POC ABG pCO2 POC ABG pO2 Potassium Chloride Carbon Dioxide BUN 59 H Creatinine 2.2 H Glucose 111 H POC Glucose Hemoglobin A1c Lactic Acid Calcium Magnesium Alkaline Phosphatase Total Creatine Kinase CK-MB (CK-2) CK-MB (CK-2) Rel Index Troponin T NT-Pro-B Natriuret Pep Serum Total Protein Total Protein Albumin Wfcwb-8-Cnhfajgxj PEP Interpretation LDL Cholesterol Direct HDL Cholesterol PTH Intact 152.8 H Urine Creatinine Urine Total Protein 10/17/18 10/17/18 10/18/18 12:17 21:32 06:36 WBC RBC Hgb Hct MCH RDW Lymph % (Auto) [place] % (Auto) Eos % (Auto) Lymph # [place] # Seg Neutrophils % APTT D-Dimer Heparin Anti-Xa Level POC ABG pH POC ABG pCO2 POC ABG pO2 Potassium Chloride Carbon Dioxide BUN Creatinine Glucose POC Glucose 130 H 402 H 217 H Hemoglobin A1c Lactic Acid Calcium Magnesium Alkaline Phosphatase Total Creatine Kinase CK-MB (CK-2) CK-MB (CK-2) Rel Index Troponin T NT-Pro-B Natriuret Pep Serum Total Protein Total Protein Albumin Bsjvp-2-Bhbnbgbwh PEP Interpretation LDL Cholesterol Direct HDL Cholesterol PTH Intact Urine Creatinine Urine Total Protein 10/18/18 10/18/18 10/18/18 08:19 12:24 18:30 WBC RBC Hgb Hct MCH RDW Lymph % (Auto) [place] % (Auto) Eos % (Auto) Lymph # [place] # Seg Neutrophils % APTT D-Dimer Heparin Anti-Xa Level POC ABG pH POC ABG pCO2 POC ABG pO2 Potassium 5.6 H Chloride 107.3 H Carbon Dioxide BUN 62 H Creatinine 2.3 H Glucose 201 H POC Glucose 159 H 136 H Hemoglobin A1c Lactic Acid Calcium Magnesium Alkaline Phosphatase Total Creatine Kinase CK-MB (CK-2) CK-MB (CK-2) Rel Index Troponin T NT-Pro-B Natriuret Pep Serum Total Protein Total Protein Albumin Sdcap-2-Kkdyhckme PEP Interpretation LDL Cholesterol Direct HDL Cholesterol PTH Intact Urine Creatinine Urine Total Protein 10/19/18 10/19/18 10/19/18 04:53 04:53 11:33 WBC RBC 2.74 L Hgb 7.5 L Hct 23.0 L MCH 27 L RDW 17.9 H Lymph % (Auto) 11.3 L [place] % (Auto) 14.5 H Eos % (Auto) Lymph # 1.0 L [place] # 1.2 H Seg Neutrophils % 71.4 H APTT D-Dimer Heparin Anti-Xa Level POC ABG pH POC ABG pCO2 POC ABG pO2 Potassium Chloride Carbon Dioxide 33 H BUN 33 H Creatinine Glucose 52 L POC Glucose 148 H Hemoglobin A1c Lactic Acid Calcium Magnesium Alkaline Phosphatase Total Creatine Kinase CK-MB (CK-2) CK-MB (CK-2) Rel Index Troponin T NT-Pro-B Natriuret Pep Serum Total Protein Total Protein Albumin Epdkz-7-Yvfwujfrk PEP Interpretation LDL Cholesterol Direct HDL Cholesterol PTH Intact Urine Creatinine Urine Total Protein 10/19/18 10/20/18 21:10 05:30 WBC RBC Hgb Hct MCH RDW Lymph % (Auto) [place] % (Auto) Eos % (Auto) Lymph # [place] # Seg Neutrophils % APTT D-Dimer Heparin Anti-Xa Level POC ABG pH POC ABG pCO2 POC ABG pO2 Potassium 5.1 H Chloride Carbon Dioxide 31 H BUN 40 H Creatinine 1.6 H Glucose POC Glucose 132 H Hemoglobin A1c Lactic Acid Calcium Magnesium Alkaline Phosphatase Total Creatine Kinase CK-MB (CK-2) CK-MB (CK-2) Rel Index Troponin T NT-Pro-B Natriuret Pep Serum Total Protein Total Protein Albumin Tbwrz-7-Rpuqobzcs PEP Interpretation LDL Cholesterol Direct HDL Cholesterol PTH Intact Urine Creatinine Urine Total Protein Allied health notes reviewed: nursing
[2018-10-20] MEDS: ZAROXOLYN PO SCH (19:08)
[2018-10-20] MEDS: APRESOLINE IV PRN (19:51)
[2018-10-20] MEDS: SODIUM CHLORIDE FLUSH SYRINGE 10 ML IV SCH (22:16)
[2018-10-20] MEDS: PRAVACHOL PO SCH (22:19)
[2018-10-20] MEDS: RisperDAL PO SCH (22:19)
[2018-10-21] MEDS: LASIX IV SCH ×2 (06:40→18:21)
[2018-10-21] MEDS: HEPARIN SUB-Q SCH ×3 (06:40→22:55)
[2018-10-21 06:46] LABS: Hematocrit 23.1 % (35.5-45.6); Hemoglobin 7.7 gm/dl (11.8-15.2); Mean Corpuscular HGB Conc 33 % (32-34); Mean Corpuscular Volume 84 fl (84-94); Platelet Count 192 K/mm3 (140-440); Red Blood Count 2.76 M/mm3 (3.65-5.03); Red Cell Distribution Width 18.2 % (13.2-15.2)
[2018-10-21 07:06] LABS: Calcium 8.8 mg/dL (8.4-10.2)
[2018-10-21] MEDS: HumuLIN R SUB-Q SCH ×6 (08:14→23:37)
--- NOTE | 2018-10-21 08:58 | Progress Note ---
Assessment and Plan 1. Acute kidney injury: MAXIMO likely Vasomotor / hemodynamic mediated in the setting of hypotension. Patient was started on hemodialysis on 10/11/2018 due to continued decline in the Renal function and hyperkalemia. He was last dialyzed on 10/18/18. Likely CKD stage 3, creatinine level appears stable. 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 Remove the hemodialysis catheter prior to discharge. 2. FEN: Volume overload, improved. S/p multiple sessions of Isolated UF. Continue IV Lasix and PO Metolazone. Kayexalate three times a week. Metabolic alkalosis, Diamox. 3. CHF exacerbation: Was on Dobutamine drip. 4. Hypotension: BP is better. 5. : Miranda catheter was removed and patient is able to void without any difficulty. 6. Anemia: Monitor. Subjective Date of service: 10/21/18 Principal diagnosis: Severe Sepsis with Shock; Acute encephalopathy; MAXIMO; Diabetes II; CMOP Interval history: Patient was seen and examined at the bedside. Feeling better. Objective - Vital Signs Vital signs: Vital Signs - 12hr 10/20/18 10/21/18 10/21/18 23:52 05:00 05:28 Temperature 98.2 F 98.0 F Pulse Rate 84 85 86 Respiratory 16 18 Rate Blood Pressure 164/85 Blood Pressure 116/48 164/86 [Right] O2 Sat by Pulse 94 100 Oximetry - General Appearance General appearance: well-developed, well-nourished, appears stated age, other (not in distress, right groin hemodialysis catheter) EENT: ATNC, PERRL, mucous membranes moist, hearing intact, vision intact Neck: supple Respiratory: Present: Clear to Ascultation Cardiology: regular, S1S2, no murmurs Gastrointestinal: normoactive bowel sounds, no tenderness, no distended Integumentary: chronic venous stasis Neurologic: no focal deficit, no asterixis Musculoskeletal: other (no edema) - Lab 10/21/18 06:26 10/21/18 06:26 Most recent lab results Calcium 8.8 mg/dL (8.4-10.2) 10/21/18 06:26 Phosphorus 4.70 mg/dL (2.5-4.5) H 10/21/18 06:26 Magnesium 2.20 mg/dL (1.7-2.3) 10/21/18 06:26 Urine Creatinine 118.6 mg/dL (0.1-20.0) H 10/10/18 22:30 Urine Sodium 35 mmol/L 10/10/18 22:30 Urine Total Protein 152 mg/dL (5-11.8) H 10/10/18 22:30 Medications & Allergies - Medications Allergies/Adverse Reactions: Allergies No Known Allergies Allergy (Unverified 10/09/18 10:44) Home Medications: Home Medications Medication Instructions Recorded Confirmed Last Taken Type Carvedilol [Coreg] 3.125 mg PO BID 10/09/18 10/09/[address] [DepaKOTE DR] 500 mg PO BID 10/09/18 10/09/18 Unknown History Ferrous Sulfate [Feosol] 325 mg PO QDAY 10/09/18 10/09/18 Unknown History Furosemide [Lasix] 80 mg PO DAILY 10/09/18 10/09/18 Unknown History Gabapentin [Neurontin] 300 mg PO Q8HR 10/09/18 10/09/18 Unknown History ISOSORBIDE MONOnitrate [Imdur ER] 30 mg PO DAILY 10/09/18 10/09/18 Unknown Hi story Insulin Glargine,Hum.rec.anlog 40 units SQ QHS 10/09/18 10/09/18 Unknown History [Lantus] Magnesium Oxide [Mag-Ox] 400 mg PO DAILY 10/09/18 10/09/18 Unknown History Simvastatin (Nf) [Zocor TAB] 20 mg PO QHS 10/09/18 10/09/18 Unknown History Sulfamethoxazole/Trimethoprim 1 each PO BID 10/09/18 10/09/18 Unknown History [Bactrim DS TAB] glipiZIDE [Glipizide] 10 mg PO DAILY 10/09/18 10/09/18 Unknown History hydrALAZINE [Apresoline TAB] 100 mg PO BID 10/09/18 10/09/18 Unknown History risperiDONE [RisperDAL] 1 mg PO QHS 10/09/18 10/09/18 Unknown History Active Medications: Generic Name Dose Route Start Last Admin Trade Name Freq PRN Reason Stop Dose Admin Albumin Human 25 gm 10/11/18 09:35 Alburx 25% (Albumin) IV JUDE PRN Hypotension Aspirin 325 mg 10/10/18 10:00 10/20/18 10:39 Aspirin PO 325 mg QDAY JAMIL Administration Carvedilol 6.25 mg 10/14/18 22:00 10/20/18 22:19 Coreg PO 6.25 mg BID JAMIL Administration Dextrose 50 ml 10/10/18 11:03 10/16/18 07:14 D50w (25gm) Syringe IV 50 ml PRN PRN Administration Hypoglycemia Divalproex Sodium 500 mg 10/09/18 22:00 10/20/18 22:[address] PO 500 mg BID JAMIL Administration Epoetin Navi 20,000 unit 10/18/18 11:50 10/19/18 17:53 Procrit SUB-Q 20,000 unit JUDE PRN Administration hemodialysis Famotidine 20 mg 10/10/18 12:00 10/20/18 10:38 Pepcid PO 20 mg DAILY JAMIL Administration Ferrous Sulfate 325 mg 10/10/18 10:00 10/20/18 10:39 Feosol PO 325 mg QDAY JAMIL Administration Furosemide 80 mg 10/16/18 18:00 10/21/18 06:40 Lasix IV 80 mg 0600,1800 JAMIL Administration Gabapentin 300 mg 10/15/18 10:00 10/20/18 10:39 Neurontin PO 300 mg DAILY JAMIL Administration Heparin Sodium (Porcine) 5,000 unit 10/11/18 15:00 10/21/18 06:40 Heparin SUB-Q 5,000 unit Q8HR JAMIL Administration Hydralazine HCl 20 mg 10/13/18 18:43 10/20/18 19:51 Apresoline IV 20 mg Q4HR PRN Administration Increased Blood Pressure Sodium Chloride 100 mls @ 999 mls/hr 10/19/18 14:59 Nacl 0.9% IV JUDE PRN Hypotension Insulin Human Regular 0 units 10/10/18 11:30 10/21/18 08:14 Humulin R SUB-Q Not Given ACHS [facility] Protocol Magnesium Hydroxide 30 ml 10/17/18 14:28 10/19/18 10:58 Milk Of Magnesia PO 30 ml QDAY PRN Administration Constipation Metolazone 5 mg 10/20/18 17:30 10/20/18 19:08 Zaroxolyn PO 5 mg DAILY@1730 JAMIL Administration Oxycodone/Acetaminophen 1 tab 10/19/18 10:18 10/19/18 17:48 Percocet 5/325 PO 1 tab Q8H PRN Administration Pain, Moderate (4-6) Pravastatin Sodium 40 mg 10/09/18 22:00 10/20/18 22:19 Pravachol PO 40 mg QHS JAMIL Administration Risperidone 1 mg 10/09/18 22:00 10/20/18 22:19 Risperdal PO 1 mg QHS JAMIL Administration Sodium Chloride 10 ml 10/09/18 13:00 10/20/18 22:16 Sodium Chloride Flush Syringe 10 Ml IV 10 ml BID JAMIL Administration Sodium Chloride 10 ml 10/09/18 13:00 Sodium Chloride Flush Syringe 10 Ml IV PRN PRN LINE FLUSH
[2018-10-21 09:18] LABS: Alanine Aminotransferase 29 units/L (7-56)
[2018-10-21] MEDS: FEOSOL PO SCH ×2 (09:34→09:47)
[2018-10-21] MEDS: ASPIRIN PO SCH (09:34)
[2018-10-21] MEDS: COREG PO SCH ×2 (09:35→22:55)
[2018-10-21] MEDS: NEURONTIN PO SCH ×2 (09:35→09:45)
[2018-10-21] MEDS: APRESOLINE IV PRN (09:35)
[2018-10-21] MEDS: PEPCID PO SCH (09:35)
--- NOTE | 2018-10-21 09:42 | Progress Note ---
Assessment and Plan Assessment and plan: --Altered mental status/Acute encephalopathy ; present on admission head CT with no acute process, currently improved, supportive care --Bilateral moderate pleural effusion; Spontaneous improvement of right pleural effusion from 300 mL- 31 mL Left pleural effusion decreased from 421 mL-112 mL No indication for thoracentesis, continue hemodialysis --MAXIMO / hyperkalemia : HD per nephro --Hypotension- s/p vasopressor , currently hypertensive. --NSTEMI type II- s/p heparin drip, obtained 2d echo, cardiology evaluated and signed off Outpatient follow-up for further evaluation and management --Acute on chronic systolic CHF: EF 35-40%, cont aspirin/statin, monitor daily wt, ins/os, restrict fluid --Sinus bradycardia -resolved, avoid beta blockers --Anemia, chronic kidney disease; closely monitor --HTN, continue current antihypertensives and when necessary medications --DM, cont SSI, Accu-Cheks, ADA diet, insulin as needed --HLP, cont statin -- h/o psych disorder, supportive care, discussed with psych cleared to d/c home,no need to return to psych facility --Extensive scrotal swelling, ultrasound; thick skin, testis and epididymis normal --DC planning for case management. Disposition-per psych and nephrology Plan of care is reviewed with the patient's nurse and case management History Interval history: Patient seen and examined medical records reviewed No new events reported by the nursing staff No new complaints Vital signs noted Hospitalist Physical - Constitutional Vitals: Temp Pulse Resp BP Pulse Ox 98.1 F 86 20 178/107 97 10/21/18 09:18 10/21/18 09:35 10/21/18 09:19 10/21/18 09:35 10/21/18 09:19 General appearance: Present: no acute distress, well-nourished - EENT Eyes: Present: PERRL, EOM intact - Neck Neck: Present: supple, normal ROM - Respiratory Respiratory effort: normal Respiratory: bilateral: diminished, negative: rales, rhonchi, wheezing - Cardiovascular Rhythm: regular Heart Sounds: Present: S1 & S2 - Extremities Extremities: no ischemia, No edema - Abdominal General gastrointestinal: soft, non-tender, non-distended, normal bowel sounds - Integumentary Integumentary: Present: clear, warm - Psychiatric Psychiatric: appropriate mood/affect, cooperative - Neurologic Neurologic: moves all extremities Results - Labs CBC & Chem 7: 10/21/18 06:26 10/21/18 06:26 Labs: Laboratory Last Values WBC 7.3 K/mm3 (4.5-11.0) 10/21/18 06:26 RBC 2.76 M/mm3 (3.65-5.03) L 10/21/18 06:26 Hgb 7.7 gm/dl (11.8-15.2) L 10/21/18 06:26 Hct 23.1 % (35.5-45.6) L 10/21/18 06:26 MCV 84 fl (84-94) 10/21/18 06:26 MCH 28 pg (28-32) 10/21/18 06:26 MCHC 33 % (32-34) 10/21/18 06:26 RDW 18.2 % (13.2-15.2) H 10/21/18 06:26 Plt Count 192 K/mm3 (140-440) 10/21/18 06:26 Lymph % (Auto) 11.3 % (13.4-35.0) L 10/19/18 04:53 [place] % (Auto) Linen Room Supervisor 10/21/18 06:26 Eos % (Auto) 2.5 % (0.0-4.3) 10/19/18 04:53 Baso % (Auto) 0.3 % (0.0-1.8) 10/19/18 04:53 Lymph # 1.0 K/mm3 (1.2-5.4) L 10/19/18 04:53 [place] # 1.2 K/mm3 (0.0-0.8) H 10/19/18 04:53 Eos # 0.2 K/mm3 (0.0-0.4) 10/19/18 04:53 Baso # 0.0 K/mm3 (0.0-0.1) 10/19/18 04:53 Seg Neutrophils % 71.4 % (40.0-70.0) H 10/19/18 04:53 Seg Neutrophils # 6.0 K/mm3 (1.8-7.7) 10/19/18 04:53 PT 14.0 Sec. (12.2-14.9) 10/17/18 Unknown INR 1.04 (0.87-1.13) 10/17/18 Unknown APTT 42.4 Sec. (24.2-36.6) H 10/09/18 14:25 D-Dimer 927.57 ng/mlDDU (0-234) H 10/10/18 13:36 Heparin Anti-Xa Level 0.49 U.I./ml (0.3-0.7) 10/11/18 04:31 POC ABG pH 7.359 (7.35-7.45) 10/15/18 13:21 POC ABG pCO2 48.4 (35-45) H 10/15/18 13:21 POC ABG pO2 77 (80-105) L 10/15/18 13:21 POC ABG HCO3 27.3 10/15/18 13:21 POC ABG Total CO2 29 10/15/18 13:21 POC ABG O2 Sat 95 10/15/18 13:21 POC ABG Base Excess 2 10/15/18 13:21 FiO2 21 % 10/15/18 13:21 Sodium 146 mmol/L (137-145) H 10/21/18 06:26 Potassium 5.0 mmol/L (3.6-5.0) 10/21/18 06:26 Chloride 104.8 mmol/L (98-107) 10/21/18 06:26 Carbon Dioxide 31 mmol/L (22-30) H 10/21/18 06:26 Anion Gap 15 mmol/L 10/21/18 06:26 BUN 41 mg/dL (9-20) H 10/21/18 06:26 Creatinine 1.6 mg/dL (0.8-1.5) H 10/21/18 06:26 Estimated GFR 56 ml/min 10/21/18 06:26 BUN/Creatinine Ratio 26 % 10/21/18 06:26 Glucose 78 mg/dL (75-100) 10/21/18 06:26 POC Glucose 92 (70-105) 10/21/18 05:41 Hemoglobin A1c 8.2 % (4-6) H 10/10/18 05:00 Lactic Acid 0.60 mmol/L (0.7-2.0) L 10/10/18 13:36 Calcium 8.8 mg/dL (8.4-10.2) 10/21/18 06:26 Phosphorus 4.70 mg/dL (2.5-4.5) H 10/21/18 06:26 Magnesium 2.20 mg/dL (1.7-2.3) 10/21/18 06:26 Total Bilirubin < 0.20 mg/dL (0.1-1.2) 10/11/18 20:45 AST 18 units/L (5-40) 10/21/18 06:26 ALT 29 units/L (7-56) 10/21/18 06:26 Alkaline Phosphatase 258 units/L (35-129) H 10/21/18 06:26 Total Creatine Kinase 481 units/L (55-170) H 10/09/18 11:22 CK-MB (CK-2) 20.5 ng/mL (0.0-4.0) H 10/09/18 11:22 CK-MB (CK-2) Rel Index 4.2 (0-4) H 10/09/18 11:22 Troponin T 0.139 ng/mL (0.00-0.029) H* 10/09/18 20:56 C-Reactive Protein 0.90 mg/dL (0.00-1.30) 10/10/18 13:36 NT-Pro-B Natriuret Pep 2963 pg/mL (0-450) H 10/09/18 11:22 Serum Total Protein 5.6 g/dL (6.1-8.1) L 10/15/18 05:39 Total Protein 6.2 g/dL (6.3-8.2) L 10/11/18 20:45 Albumin 2.5 g/dL (3.8-4.8) L 10/15/18 05:39 Albumin/Globulin Ratio 0.9 % 10/11/18 20:45 Kvhgq-3-Ygwaskgtj 0.4 g/dL (0.2-0.3) H 10/15/18 05:39 Evhro-3-Oacxkdwsb 0.7 g/dL (0.5-0.9) 10/15/18 05:39 Beta Globulins 0.4 g/dL (0.2-0.5) 10/15/18 05:39 Gamma Globulins 1.2 g/dL (0.8-1.7) 10/15/18 05:39 Abnorm Protein Band 1 see below 10/15/18 05:39 PEP Interpretation see below H 10/15/18 05:39 Triglycerides 24 mg/dL (2-149) 10/09/18 11:22 Cholesterol 115 mg/dL (50-199) 10/09/18 11:22 LDL Cholesterol Direct 49 mg/dL (50-130) L 10/09/18 11:22 HDL Cholesterol 73 mg/dL (40-59) H 10/09/18 11:22 Cholesterol/HDL Ratio 1.57 % 10/09/18 11:22 Amylase 50 units/L (27-131) 10/21/18 06:26 Lipase 13 units/L (13-60) 10/21/18 06:26 PTH Intact 152.8 pg/mL (15-65) H 10/17/18 05:22 Urine Color Tamie (Yellow) 10/10/18 22:30 Urine Turbidity Clear (Clear) 10/10/18 22:30 Urine pH 5.0 (5.0-7.0) 10/10/18 22:30 Ur Specific [place] 1.016 (1.003-1.030) 10/10/18 22:30 Urine Protein 100 mg/dl mg/dL (Negative) 10/10/18 22:30 Urine Glucose (UA) 50 mg/dL (Negative) 10/10/18 22:30 Urine Ketones Neg mg/dL (Negative) 10/10/18 22:30 Urine Blood Neg (Negative) 10/10/18 22:30 Urine Nitrite Neg (Negative) 10/10/18 22:30 Urine Bilirubin Neg (Negative) 10/10/18 22:30 Urine Urobilinogen 4.0 mg/dL (<2.0) 10/10/18 22:30 Ur Leukocyte Esterase Tr (Negative) 10/10/18 22:30 Urine WBC (Auto) 2.0 /HPF (0.0-6.0) 10/10/18 22:30 Urine RBC (Auto) 5.0 /HPF (0.0-6.0) 10/10/18 22:30 U Epithel Cells (Auto) < 1.0 /HPF (0-13.0) 10/10/18 22:30 Urine Bacteria (Auto) 1+ /HPF (Negative) 10/10/18 22:30 Hyaline Casts 1 /LPF 10/10/18 22:30 Urine Mucus Few /HPF 10/10/18 22:30 Urine Creatinine 118.6 mg/dL (0.1-20.0) H 10/10/18 22:30 Protein/Creatinin Ratio 1.28 10/10/18 22:30 Urine Sodium 35 mmol/L 10/10/18 22:30 Urine Total Protein 152 mg/dL (5-11.8) H 10/10/18 22:30 BROWN Screen Negative (Negative) 10/15/18 05:39 Proteinase 3 (PR3) Ab <1.0 AI (<1.0) 10/15/18 05:39 Myeloperoxidase Ab <1.0 AI (<1.0) 10/15/18 05:39 Complement C3 129 mg/dL (82-185) 10/15/18 05:39 Complement C4 34 mg/dL (15-53) 10/15/18 05:39 Hepatitis A IgM Ab Non-reactive (NonReactive) 10/11/18 13:24 Hep Bs Antigen Non-reactive (Negative) 10/11/18 13:24 Hep B Core IgM Ab Non-reactive (NonReactive) 10/11/18 13:24 Hepatitis C Antibody Non-reactive (NonReactive) 10/11/18 13:24 Nutrition/Malnutrition Assess - Dietary Evaluation Nutrition/Malnutrition Findings: Nutrition Notes Start: 10/16/18 16:17 Freq: Status: Active Protocol: Document 10/18/18 18:14 RM (Rec: 10/18/18 18:24 RM [id number]) Nutrition Notes Initial or Follow up Reassessment Current Diagnosis Acute Kidney Injury Diabetes Hypertension Heart Failure Other Pertinent Diagnosis Encephalopathy, R leg diabetic PU, AMS Current Diet Cardiac/Renal/Consistent Carb w/Nepro Butter Pecan BID Labs/Tests K 5.6 Pertinent Medications Lasix Height 6 ft 2 in Weight 119 kg [place] Body Weight (lbs) 190.0 BMI 33.7 Subjective/Other Information Pt not in room at time of visit. Tech stated that pt ate most of her meals yesterday and drank all of the Nepro yesterday. Tech unsure of how much pt ate today. Percent of energy/protein needs met: 90%/94% Burn Absent Trauma Absent #1 Nutrition Diagnosis Inadequate oral intake As Evidenced by Signs and Symptoms pt meeting 90% of calorie needs and 94% of protein needs Diagnosis Progress(for reassessment Resolved documentation) Is patient on ventilator? No Is Patient Ambulatory and/or Out of Bed No REE-([facility]-confined to bed) [phone] Calculation Used for Recommendations [facility] Additional Notes Protein Needs: 103-134g (1-1. 3g/kg, 103kg adjBW) Fluid Needs: 1ml/kcal Nutrition Intervention Change Diet Order: Continue current Add Supplement/Snack (indicate name/kcal Continue Nepro BID /protein ) Provides kCal: 850 Provides Protein (gm) 38 Goal #1 Meet at least 75% of calorie and protein needs via PO and ONS intakes Anticipated Discharge Needs: Cardiac/Consistent Carb/Renal Follow-Up By: 10/25/18 Additional Comments Follow for PO and ONS intakes
[2018-10-21] MEDS: SODIUM CHLORIDE FLUSH SYRINGE 10 ML IV SCH ×2 (09:47→22:55)
[2018-10-21] MEDS ORDERED: DIAMOX IV NR (10:00)
--- NOTE | 2018-10-21 11:44 | Consultation ---
History of Present Illness - Reason for Consult Consult date: 10/21/18 Reason for consult: Mental Health Evaluation Requesting physician: [place] RUSSO - Chief Complaint Chief complaint: "I am okay" - History of Present Psychiatric Illness 48-year-old AA male presenting with chief complaint of chest pain. Psychiatry was consulted to see the patient for medication management. Also, the patient was transferred from [place]. Today the patient is calm and cooperative during the assessment. He stated that he was a patient at [facility] prior to his admission to his admission to [facility] for chest pain." He stated that his PCP manage all his medications. He stated that he have a new medical problem re ference his kidneys. He was asked about his mental health, he stated, "I was dx with some mood do,." and take Rispersal and Depakote. He stated that he wouldn't mind going back to [place], [place] when discharged. He denies SI/HI's and AVH's. He denies erratic sleep and a poor appetite. Per the staff, no behavioral disturbances overnight. He denies recreational drug use and alcohol consumption (etoh). Medications and Allergies Allergies Allergy/AdvReac Type Severity Reaction Status Date / Time No Known Allergies Allergy Unverified 10/09/18 10:44 Home Medications Medication Instructions Recorded Confirmed Last Taken Type Carvedilol [Coreg] 3.125 mg PO BID 10/09/18 10/09/[address] [DepaKOTE DR] 500 mg PO BID 10/09/18 10/09/18 Unknown History Ferrous Sulfate [Feosol] 325 mg PO QDAY 10/09/18 10/09/18 Unknown History Furosemide [Lasix] 80 mg PO DAILY 10/09/18 10/09/18 Unknown History Gabapentin [Neurontin] 300 mg PO Q8HR 10/09/18 10/09/18 Unknown History ISOSORBIDE MONOnitrate [Imdur ER] 30 mg PO DAILY 10/09/18 10/09/18 Unknown History Insulin Glargine,Hum.rec.anlog 40 units SQ QHS 10/09/18 10/09/18 Unknown History [Lantus] Magnesium Oxide [Mag-Ox] 400 mg PO DAILY 10/09/18 10/09/18 Unknown History Simvastatin (Nf) [Zocor TAB] 20 mg PO QHS 10/09/18 10/09/18 Unknown History Sulfamethoxazole/Trimethoprim 1 each PO BID 10/09/18 10/09/18 Unknown History [Bactrim DS TAB] glipiZIDE [Glipizide] 10 mg PO DAILY 10/09/18 10/09/18 Unknown History hydrALAZINE [Apresoline TAB] 100 mg PO BID 10/09/18 10/09/18 Unknown History risperiDONE [RisperDAL] 1 mg PO QHS 10/09/18 10/09/18 Unknown History Active Meds: Active Medications Acetazolamide (Diamox) 250 mg IV ONCE NR Stop: 10/21/18 12:00 Albumin Human (Alburx 25% (Albumin)) 25 gm IV JUDE PRN PRN Reason: Hypotension Aspirin (Aspirin) 325 mg PO QDAY [facility] Last Admin: 10/21/18 09:34 Dose: 325 mg Documented by: Carvedilol (Coreg) 6.25 mg PO BID [facility] Last Admin: 10/21/18 09:35 Dose: 6.25 mg Documented by: Dextrose (D50w (25gm) Syringe) 50 ml IV PRN PRN PRN Reason: Hypoglycemia Last Admin: 10/16/18 07:14 Dose: 50 ml Documented by: Divalproex Sodium (Depakote Dr) 500 mg PO BID [facility] Last Admin: 10/21/18 09:35 Dose: 500 mg Documented by: Famotidine (Pepcid) 20 mg PO DAILY [facility] Last Admin: 10/21/18 09:35 Dose: 20 mg Documented by: Ferrous Sulfate (Feosol) 325 mg PO QDAY [facility] Last Admin: 10/21/18 09:47 Dose: Not Given Documented by: Furosemide (Lasix) 80 mg IV 0600,1800 [facility] Last Admin: 10/21/18 06:40 Dose: 80 mg Documented by: Gabapentin (Neurontin) 300 mg PO DAILY [facility] Last Admin: 10/21/18 09:45 Dose: Not Given Documented by: Heparin Sodium (Porcine) (Heparin) 5,000 unit SUB-Q Q8HR [facility] Last Admin: 10/21/18 06:40 Dose: 5,000 unit Documented by: Hydralazine HCl (Apresoline) 20 mg IV Q4HR PRN PRN Reason: Increased Blood Pressure Last Admin: 10/21/18 09:35 Dose: 20 mg Documented by: Sodium Chloride (Nacl 0.9%) 100 mls @ 999 mls/hr IV JUDE PRN PRN Reason: Hypotension Insulin Human Regular (Humulin R) 0 units SUB-Q ACHS [facility]; Protocol Last Admin: 10/21/18 08:14 Dose: Not Given Documented by: Magnesium Hydroxide (Milk Of Magnesia) 30 ml PO QDAY PRN PRN Reason: Constipation Last Admin: 10/19/18 10:58 Dose: 30 ml Documented by: Metolazone (Zaroxolyn) 5 mg PO DAILY@1730 [facility] Last Admin: 10/20/18 19:08 Dose: 5 mg Documented by: Oxycodone/Acetaminophen (Percocet 5/325) 1 tab PO Q8H PRN PRN Reason: Pain, Moderate (4-6) Last Admin: 10/19/18 17:48 Dose: 1 tab Documented by: Pravastatin Sodium (Pravachol) 40 mg PO QHS [facility] Last Admin: 10/20/18 22:19 Dose: 40 mg Documented by: Risperidone (Risperdal) 1 mg PO QHS [facility] Last Admin: 10/20/18 22:19 Dose: 1 mg Documented by: Sodium Chloride (Sodium Chloride Flush Syringe 10 Ml) 10 ml IV BID [facility] Last Admin: 10/21/18 09:47 Dose: 10 ml Documented by: Sodium Chloride (Sodium Chloride Flush Syringe 10 Ml) 10 ml IV PRN PRN PRN Reason: LINE FLUSH Sodium Polystyrene Sulfonate (Kionex) 30 gm PO MoWeFr [facility] Past psychiatric history - Past Medical History Past Medical History: hypertension Past Surgical History: No surgical history - past Psychiatric treatment and history psychiatric treatment history: Was inpatient at [facility] prior to his admission to [facility]. Denies a fam psy hx. - Social History Social history: lives with family Mental Status Exam - Vital signs Last Vital Signs Temp 98.1 F 10/21/18 09:18 Pulse 86 10/21/18 09:35 Resp 20 10/21/18 09:19 BP 178/107 10/21/18 09:35 Pulse Ox 97 10/21/18 09:19 - Exam Narrative exam: MSE: Appearance: calm, cooperative Behavior: regular eye contact Speech: regular rate and tone Mood: 'okay" Affect: congruent to mood Thought Process: circumstantial Thought Content: denies SI/HI's and AVH's Motor Activity: lying in bed Cognition: A/O x3 Insight: fair Judgment: fair Results Result Diagrams: 10/21/18 06:26 10/21/18 06:26 Abnormal lab results 10/20/18 10/20/18 10/21/18 Range/Units 18:14 20:57 06:26 RBC (3.65-5.03) M/mm3 Hgb (11.8-15.2) gm/dl Hct (35.5-45.6) % RDW (13.2-15.2) % Sodium 146 H (137-145) mmol/L Carbon Dioxide 31 H (22-30) mmol/L BUN 41 H (9-20) mg/dL Creatinine 1.6 H (0.8-1.5) mg/dL POC Glucose 114 H 196 H (70-105) Phosphorus 4.70 H (2.5-4.5) mg/dL Alkaline Phosphatase (35-129) units/L Valproic Acid (50-100) ug/mL 10/21/18 10/21/18 10/21/18 Range/Units 06:26 06:26 08:52 RBC 2.76 L (3.65-5.03) M/mm3 Hgb 7.7 L (11.8-15.2) gm/dl Hct 23.1 L (35.5-45.6) % RDW 18.2 H (13.2-15.2) % Sodium (137-145) mmol/L Carbon Dioxide (22-30) mmol/L BUN (9-20) mg/dL Creatinine (0.8-1.5) mg/dL POC Glucose (70-105) Phosphorus (2.5-4.5) mg/dL Alkaline Phosphatase 258 H (35-129) units/L Valproic Acid 46.4 L (50-100) ug/mL All other labs normal. 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 No overt psychosis seen with the patient. Today the patient is calm and cooperative during the assessment. Alkaline Phosphatase elevated 259. Recommendation/Plan: Continue home medicationRisperdal 1 mg PO HS for mood. The patient should continue the lowest dose of Risperdal if it's effective, the patient is having renal issues. Discussed possible metabolic side effects of Risperdal with the patient. Will follow up with the patient is 24 hours. Dispo: The patient can follow up with [facility] in [place], [place] for outpatient psy services. Will staff with Dr. Amol Byers.
--- NOTE | 2018-10-21 11:45 | Ultrasound Report ---
ULTRASOUND CHEST History: Bilateral pleural effusions. Findings: Targeted breast ultrasound on the left side of the chest demonstrates a small layering left pleural effusion measuring 126 cc. Impression: Small left pleural effusion as described.
[2018-10-21] MEDS: KIONEX PO SCH (13:48)
--- NOTE | 2018-10-21 14:06 | Progress Note ---
Assessment and Plan Patient alert, awake. Resting on room air.O2 saturation 97%. No acute respiratory distress. Patients V/Q scan reported intermediate probability for PE. Venous doppler studies of legs reported No DVT. Patient repeat ultrasound of chest reported no significant pleural effusions for thoracentesis. - Patient Problems (1) CHF (congestive heart failure) Current Visit: Yes Status: Acute Qualifiers: Heart failure type: systolic Heart failure chronicity: acute Qualified Code(s): I50.21 - Acute systolic (congestive) heart failure Plan to address problem: Management as per cardiology. (2) Chest pain Current Visit: Yes Status: Acute Plan to address problem: Management as per cardiology. (3) ACS (acute coronary syndrome) Current Visit: Yes Status: Acute Plan to address problem: Management as per cardiology. (4) ARF (acute renal failure) with tubular necrosis Current Visit: Yes Status: Acute Plan to address problem: Management as per nephrology (5) Encephalopathy Current Visit: Yes Status: Acute Plan to address problem: Management as per primary care. (6) Pleural effusion, right Current Visit: Yes Status: Acute Plan to address problem: Repeat ultrasound of chest reported no significant pleural effusions. So no thoracentesis done. (7) Pulmonary infiltrates on CXR Current Visit: Yes Status: Acute Plan to address problem: Pulmonary infiltrates or atelectasis on the right side. Patient is treated with levaquin. (8) Acute respiratory failure with hypoxia and hypercapnia Current Visit: Yes Status: Acute Plan to address problem: POC ABG pH 7.286 (7.35-7.45) L 10/10/18 12:22 POC ABG pCO2 47.3 (35-45) H 10/10/18 12:22 POC ABG pO2 65 (80-105) L 10/10/18 12:22 POC ABG HCO3 22.5 10/10/18 12:22 POC ABG Total CO2 24 10/10/18 12:22 POC ABG O2 Sat 90 10/10/18 12:22 Recommend O2 2 litres via nasal canula. Brovanna/budesonide aerosol treatments q 12 hours. Albuterol/atrovent aerosol treatments q 6 hours prn for shortness of breath. Repeat ABGs PO2 77 on room air. Continue S/C heparin Subjective Date of service: 10/21/18 Principal diagnosis: Severe Sepsis with Shock; Acute encephalopathy; MAXIMO; Diabetes II; CMOP Interval history: Patient alert, awake. Resting on room air.O2 saturation 97%. No acute respiratory distress. Patients V/Q scan reported intermediate probability for PE. Venous doppler studies of legs reported No DVT. Patient repeat ultrasound of chest reported no significant pleural effusions for thoracentesis. Objective Vital Signs - 12hr 10/21/18 10/21/18 10/21/18 05:00 05:28 09:18 Temperature 98.2 F 98.0 F 98.1 F Pulse Rate 85 86 Respiratory 16 18 Rate Blood Pressure 164/85 Blood Pressure 164/86 [Right] O2 Sat by Pulse 94 100 Oximetry 10/21/18 10/21/18 09:19 09:35 Temperature Pulse Rate 85 86 Respiratory 20 Rate Blood Pressure 178/107 178/106 Blood Pressure [Right] O2 Sat by Pulse 97 Oximetry Constitutional: no acute distress, alert, other (middle aged AAM, normocephalic and atraumatic with normal respiratory effort) Eyes: non-icteric ENT: oropharynx moist Neck: supple, no lymphadenopathy, no JVD Effort: normal Ascultation: Bilateral: diminished breath sounds, rales (bases) Percussion: Bilateral: not dull Cardiovascular: regular rate and rhythm Gastrointestinal: normoactive bowel sounds, soft, non-tender, non-distended Integumentary: rash (feet) Extremities: no cyanosis, pulses normal, no ischemia or petechiae, edema (1+) Neurologic: normal mental status, non-focal exam, pupils equal and round, motor strength normal and, other (sensory numbness to feet) Psychiatric: mood appropriate, affect normal, other CBC and BMP: 10/21/18 06:26 10/21/18 06:26 ABG, PT/INR, D-dimer: ABG POC ABG pH 7.359 (7.35-7.45) 10/15/18 13:21 POC ABG pCO2 48.4 (35-45) H 10/15/18 13:21 POC ABG pO2 77 (80-105) L 10/15/18 13:21 POC ABG HCO3 27.3 10/15/18 13:21 POC ABG Total CO2 29 10/15/18 13:21 POC ABG O2 Sat 95 10/15/18 13:21 PT/INR, D-dimer PT 14.0 Sec. (12.2-14.9) 10/17/18 Unknown INR 1.04 (0.87-1.13) 10/17/18 Unknown D-Dimer 927.57 ng/mlDDU (0-234) H 10/10/18 13:36 Abnormal lab findings: Abnormal Labs 10/09/18 10/09/18 10/09/18 11:22 11:22 11:22 WBC 3.3 L RBC 3.03 L Hgb 8.4 L Hct 25.8 L MCH RDW 18.7 H Lymph % (Auto) [place] % (Auto) 12.1 H Eos % (Auto) 4.6 H Lymph # 0.5 L [place] # Seg Neutrophils % APTT 42.8 H D-Dimer Heparin Anti-Xa Level POC ABG pH POC ABG pCO2 POC ABG pO2 Sodium Potassium 5.2 H Chloride 108.2 H Carbon Dioxide BUN 49 H Creatinine 1.9 H Glucose 153 H POC Glucose Hemoglobin A1c Lactic Acid Calcium Phosphorus Magnesium Alkaline Phosphatase Total Creatine Kinase 481 H CK-MB (CK-2) 20.5 H CK-MB (CK-2) Rel Index 4.2 H Troponin T 0.153 H* NT-Pro-B Natriuret Pep 2963 H Serum Total Protein Total Protein Albumin Qjytu-0-Bgwpitijq PEP Interpretation LDL Cholesterol Direct 49 L HDL Cholesterol 73 H PTH Intact Urine Creatinine Urine Total Protein Valproic Acid 10/09/18 10/09/18 10/09/18 13:43 14:25 14:25 WBC RBC Hgb 8.2 L Hct 26.2 L MCH RDW Lymph % (Auto) [place]anner % (Auto) Eos % (Auto) Lymph # [place] # Seg Neutrophils % APTT 42.4 H D-Dimer Heparin Anti-Xa Level POC ABG pH POC ABG pCO2 POC ABG pO2 Sodium Potassium Chloride Carbon Dioxide BUN Creatinine Glucose POC Glucose 167 H Hemoglobin A1c Lactic Acid Calcium Phosphorus Magnesium Alkaline Phosphatase Total Creatine Kinase CK-MB (CK-2) CK-MB (CK-2) Rel Index Troponin T NT-Pro-B Natriuret Pep Serum Total Protein Total Protein Albumin Dovdu-6-Bebylfxwk PEP Interpretation LDL Cholesterol Direct HDL Cholesterol PTH Intact Urine Creatinine Urine Total Protein Valproic Acid 10/09/18 10/09/18 10/09/18 17:28 20:56 21:23 WBC RBC Hgb Hct MCH RDW Lymph % (Auto) [place]anner % (Auto) Eos % (Auto) Lymph # [place] # Seg Neutrophils % APTT D-Dimer Heparin Anti-Xa Level 0.28 L POC ABG pH POC ABG pCO2 POC ABG pO2 Sodium Potassium Chloride Carbon Dioxide BUN Creatinine Glucose POC Glucose Hemoglobin A1c Lactic Acid Calcium Phosphorus Magnesium Alkaline Phosphatase Total Creatine Kinase CK-MB (CK-2) CK-MB (CK-2) Rel Index Troponin T 0.136 H* 0.139 H* NT-Pro-B Natriuret Pep Serum Total Protein Total Protein Albumin Sasoa-7-Ikygfkpek PEP Interpretation LDL Cholesterol Direct HDL Cholesterol PTH Intact Urine Creatinine Urine Total Protein Valproic Acid 10/10/18 10/10/18 10/10/18 00:10 05:00 05:00 WBC 3.3 L RBC 2.99 L Hgb 8.2 L Hct 25.9 L MCH 27 L RDW 19.2 H Lymph % (Auto) [place]anner % (Auto) 13.2 H Eos % (Auto) 5.8 H Lymph # 0.5 L [place] # Seg Neutrophils % APTT D-Dimer Heparin Anti-Xa Level POC ABG pH POC ABG pCO2 POC ABG pO2 Sodium Potassium 5.6 H Chloride 110.8 H Carbon Dioxide BUN 50 H Creatinine 2.2 H Glucose 52 L POC Glucose 60 L Hemoglobin A1c Lactic Acid Calcium 8.1 L Phosphorus Magnesium Alkaline Phosphatase Total Creatine Kinase CK-MB (CK-2) CK-MB (CK-2) Rel Index Troponin T NT-Pro-B Natriuret Pep Serum Total Protein Total Protein Albumin Guvhb-3-Vfmfyixbc PEP Interpretation LDL Cholesterol Direct HDL Cholesterol PTH Intact Urine Creatinine Urine Total Protein Valproic Acid 10/10/18 10/10/18 10/10/18 05:00 06:11 11:30 WBC RBC Hgb Hct MCH RDW Lymph % (Auto) [place]anner % (Auto) Eos % (Auto) Lymph # [place] # Seg Neutrophils % APTT D-Dimer Heparin Anti-Xa Level POC ABG pH POC ABG pCO2 POC ABG pO2 Sodium Potassium Chloride Carbon Dioxide BUN Creatinine Glucose POC Glucose 57 L 48 L Hemoglobin A1c 8.2 H Lactic Acid Calcium Phosphorus Magnesium Alkaline Phosphatase Total Creatine Kinase CK-MB (CK-2) CK-MB (CK-2) Rel Index Troponin T NT-Pro-B Natriuret Pep Serum Total Protein Total Protein Albumin Ttwzk-1-Yqehzkezq PEP Interpretation LDL Cholesterol Direct HDL Cholesterol PTH Intact Urine Creatinine Urine Total Protein Valproic Acid 10/10/18 10/10/18 10/10/18 12:22 13:36 13:36 WBC RBC Hgb Hct MCH RDW Lymph % (Auto) [place]anner % (Auto) Eos % (Auto) Lymph # [place] # Seg Neutrophils % APTT D-Dimer 927.57 H Heparin Anti-Xa Level POC ABG pH 7.286 L POC ABG pCO2 47.3 H POC ABG pO2 65 L Sodium Potassium Chloride Carbon Dioxide BUN Creatinine Glucose POC Glucose Hemoglobin A1c Lactic Acid 0.60 L Calcium Phosphorus Magnesium Alkaline Phosphatase Total Creatine Kinase CK-MB (CK-2) CK-MB (CK-2) Rel Index Troponin T NT-Pro-B Natriuret Pep Serum Total Protein Total Protein Albumin Hhuyz-5-Rbhugdctv PEP Interpretation LDL Cholesterol Direct HDL Cholesterol PTH Intact Urine Creatinine Urine Total Protein Valproic Acid 10/10/18 10/10/18 10/10/18 16:42 21:12 22:30 WBC RBC Hgb Hct MCH RDW Lymph % (Auto) [place] % (Auto) Eos % (Auto) Lymph # [place] # Seg Neutrophils % APTT D-Dimer Heparin Anti-Xa Level POC ABG pH POC ABG pCO2 POC ABG pO2 Sodium Potassium Chloride Carbon Dioxide BUN Creatinine Glucose POC Glucose 122 H 119 H Hemoglobin A1c Lactic Acid Calcium Phosphorus Magnesium Alkaline Phosphatase Total Creatine Kinase CK-MB (CK-2) CK-MB (CK-2) Rel Index Troponin T NT-Pro-B Natriuret Pep Serum Total Protein Total Protein Albumin Xricp-3-Ovmfudqld PEP Interpretation LDL Cholesterol Direct HDL Cholesterol PTH Intact Urine Creatinine 118.6 H Urine Total Protein 152 H Valproic Acid 10/11/18 10/11/18 10/11/18 04:31 04:31 13:15 WBC RBC Hgb 8.7 L Hct 27.9 L MCH RDW Lymph % (Auto) [place]anner % (Auto) Eos % (Auto) Lymph # [place] # Seg Neutrophils % APTT D-Dimer Heparin Anti-Xa Level POC ABG pH POC ABG pCO2 POC ABG pO2 Sodium Potassium 6.6 H* 6.4 H* Chloride Carbon Dioxide BUN 55 H Creatinine 2.9 H Glucose POC Glucose Hemoglobin A1c Lactic Acid Calcium 7.6 L Phosphorus Magnesium Alkaline Phosphatase Total Creatine Kinase CK-MB (CK-2) CK-MB (CK-2) Rel Index Troponin T NT-Pro-B Natriuret Pep Serum Total Protein Total Protein Albumin Ivbpa-3-Oioajjjge PEP Interpretation LDL Cholesterol Direct HDL Cholesterol PTH Intact Urine Creatinine Urine Total Protein Valproic Acid 10/11/18 10/11/18 10/12/18 20:45 22:37 04:25 WBC RBC Hgb Hct MCH RDW Lymph % (Auto) [place] % (Auto) Eos % (Auto) Lymph # [place] # Seg Neutrophils % APTT D-Dimer Heparin Anti-Xa Level POC ABG pH POC ABG pCO2 POC ABG pO2 Sodium Potassium Chloride Carbon Dioxide BUN 37 H 38 H Creatinine 2.4 H 2.3 H Glucose POC Glucose 117 H Hemoglobin A1c Lactic Acid Calcium 7.5 L 7.6 L Phosphorus Magnesium Alkaline Phosphatase 261 H Total Creatine Kinase CK-MB (CK-2) CK-MB (CK-2) Rel Index Troponin T NT-Pro-B Natriuret Pep Serum Total Protein Total Protein 6.2 L Albumin 3.0 L Ezalh-5-Tlkbdabxy PEP Interpretation LDL Cholesterol Direct HDL Cholesterol PTH Intact Urine Creatinine Urine Total Protein Valproic Acid 10/12/18 10/12/18 10/13/18 10:02 21:33 03:28 WBC RBC Hgb 7.6 L 7.7 L Hct 24.1 L 23.8 L MCH RDW Lymph % (Auto) [place] % (Auto) Eos % (Auto) Lymph # [place] # Seg Neutrophils % APTT D-Dimer Heparin Anti-Xa Level POC ABG pH POC ABG pCO2 POC ABG pO2 Sodium Potassium Chloride Carbon Dioxide BUN Creatinine Glucose POC Glucose 109 H Hemoglobin A1c Lactic Acid Calcium Phosphorus Magnesium Alkaline Phosphatase Total Creatine Kinase CK-MB (CK-2) CK-MB (CK-2) Rel Index Troponin T NT-Pro-B Natriuret Pep Serum Total Protein Total Protein Albumin Gpkrt-7-Axbknplfo PEP Interpretation LDL Cholesterol Direct HDL Cholesterol PTH Intact Urine Creatinine Urine Total Protein Valproic Acid 10/13/18 10/13/18 10/13/18 03:28 08:27 15:04 WBC RBC Hgb Hct MCH RDW Lymph % (Auto) [place] % (Auto) Eos % (Auto) Lymph # [place] # Seg Neutrophils % APTT D-Dimer Heparin Anti-Xa Level POC ABG pH POC ABG pCO2 POC ABG pO2 Sodium Potassium Chloride Carbon Dioxide BUN 38 H Creatinine 1.9 H Glucose POC Glucose 136 H 160 H Hemoglobin A1c Lactic Acid Calcium 8.3 L Phosphorus Magnesium Alkaline Phosphatase Total Creatine Kinase CK-MB (CK-2) CK-MB (CK-2) Rel Index Troponin T NT-Pro-B Natriuret Pep Serum Total Protein Total Protein Albumin Qrtzf-1-Tjimdffvf PEP Interpretation LDL Cholesterol Direct HDL Cholesterol PTH Intact Urine Creatinine Urine Total Protein Valproic Acid 10/13/18 10/13/18 10/14/18 16:53 23:06 06:06 WBC RBC Hgb Hct MCH RDW Lymph % (Auto) [place] % (Auto) Eos % (Auto) Lymph # [place] # Seg Neutrophils % APTT D-Dimer Heparin Anti-Xa Level POC ABG pH POC ABG pCO2 POC ABG pO2 Sodium Potassium Chloride 107.7 H Carbon Dioxide BUN 39 H Creatinine 1.8 H Glucose 116 H POC Glucose 161 H 213 H Hemoglobin A1c Lactic Acid Calcium Phosphorus Magnesium 2.40 H Alkaline Phosphatase Total Creatine Kinase CK-MB (CK-2) CK-MB (CK-2) Rel Index Troponin T NT-Pro-B Natriuret Pep Serum Total Protein Total Protein Albumin Pemrp-0-Uwjlqfbjo PEP Interpretation LDL Cholesterol Direct HDL Cholesterol PTH Intact Urine Creatinine Urine Total Protein Valproic Acid 10/14/18 10/14/18 10/14/18 06:34 11:01 13:50 WBC RBC Hgb 7.8 L Hct 24.8 L MCH RDW Lymph % (Auto) [place]anner % (Auto) Eos % (Auto) Lymph # [place] # Seg Neutrophils % APTT D-Dimer Heparin Anti-Xa Level POC ABG pH POC ABG pCO2 POC ABG pO2 Sodium Potassium Chloride Carbon Dioxide BUN Creatinine Glucose POC Glucose 118 H 67 L Hemoglobin A1c Lactic Acid Calcium Phosphorus Magnesium Alkaline Phosphatase Total Creatine Kinase CK-MB (CK-2) CK-MB (CK-2) Rel Index Troponin T NT-Pro-B Natriuret Pep Serum Total Protein Total Protein Albumin Gsbzv-1-Ejqhrctep PEP Interpretation LDL Cholesterol Direct HDL Cholesterol PTH Intact Urine Creatinine Urine Total Protein Valproic Acid 10/14/18 10/15/18 10/15/18 21:37 05:39 05:39 WBC RBC Hgb 7.6 L Hct 23.5 L MCH RDW Lymph % (Auto) [place] % (Auto) Eos % (Auto) Lymph # [place] # Seg Neutrophils % APTT D-Dimer Heparin Anti-Xa Level POC ABG pH POC ABG pCO2 POC ABG pO2 Sodium Potassium Chloride Carbon Dioxide BUN Creatinine Glucose POC Glucose 125 H Hemoglobin A1c Lactic Acid Calcium Phosphorus Magnesium Alkaline Phosphatase Total Creatine Kinase CK-MB (CK-2) CK-MB (CK-2) Rel Index Troponin T NT-Pro-B Natriuret Pep Serum Total Protein 5.6 L Total Protein Albumin 2.5 L Adyjs-3-Ylbcibqlv 0.4 H PEP Interpretation see below H LDL Cholesterol Direct HDL Cholesterol PTH Intact Urine Creatinine Urine Total Protein Valproic Acid 10/15/18 10/15/18 10/15/18 05:39 06:27 07:48 WBC RBC Hgb Hct MCH RDW Lymph % (Auto) [place] % (Auto) Eos % (Auto) Lymph # [place] # Seg Neutrophils % APTT D-Dimer Heparin Anti-Xa Level POC ABG pH POC ABG pCO2 POC ABG pO2 Sodium Potassium Chloride Carbon Dioxide BUN 45 H Creatinine 2.1 H Glucose 59 L POC Glucose 46 L 65 L Hemoglobin A1c Lactic Acid Calcium 8.3 L Phosphorus Magnesium Alkaline Phosphatase Total Creatine Kinase CK-MB (CK-2) CK-MB (CK-2) Rel Index Troponin T NT-Pro-B Natriuret Pep Serum Total Protein Total Protein Albumin Bdtap-9-Fiqtqwpuq PEP Interpretation LDL Cholesterol Direct HDL Cholesterol PTH Intact Urine Creatinine Urine Total Protein Valproic Acid 10/15/18 10/15/18 10/15/18 13:21 13:24 21:23 WBC RBC Hgb Hct MCH RDW Lymph % (Auto) [place] % (Auto) Eos % (Auto) Lymph # [place] # Seg Neutrophils % APTT D-Dimer Heparin Anti-Xa Level POC ABG pH POC ABG pCO2 48.4 H POC ABG pO2 77 L Sodium Potassium Chloride Carbon Dioxide BUN Creatinine Glucose POC Glucose 106 H 160 H Hemoglobin A1c Lactic Acid Calcium Phosphorus Magnesium Alkaline Phosphatase Total Creatine Kinase CK-MB (CK-2) CK-MB (CK-2) Rel Index Troponin T NT-Pro-B Natriuret Pep Serum Total Protein Total Protein Albumin Bwqjq-4-Hbloyziia PEP Interpretation LDL Cholesterol Direct HDL Cholesterol PTH Intact Urine Creatinine Urine Total Protein Valproic Acid 10/16/18 10/16/18 10/16/18 06:25 06:49 21:42 WBC RBC Hgb Hct MCH RDW Lymph % (Auto) [place] % (Auto) Eos % (Auto) Lymph # [place] # Seg Neutrophils % APTT D-Dimer Heparin Anti-Xa Level POC ABG pH POC ABG pCO2 POC ABG pO2 Sodium Potassium Chloride 107.7 H Carbon Dioxide BUN 53 H Creatinine 2.2 H Glucose 61 L POC Glucose 51 L 153 H Hemoglobin A1c Lactic Acid Calcium Phosphorus Magnesium Alkaline Phosphatase Total Creatine Kinase CK-MB (CK-2) CK-MB (CK-2) Rel Index Troponin T NT-Pro-B Natriuret Pep Serum Total Protein Total Protein Albumin Jnscn-6-Ojoicrgki PEP Interpretation LDL Cholesterol Direct HDL Cholesterol PTH Intact Urine Creatinine Urine Total Protein Valproic Acid 10/17/18 10/17/18 10/17/18 05:22 05:22 05:22 WBC RBC Hgb 7.6 L Hct 23.1 L MCH RDW Lymph % (Auto) [place]anner % (Auto) Eos % (Auto) Lymph # [place] # Seg Neutrophils % APTT D-Dimer Heparin Anti-Xa Level POC ABG pH POC ABG pCO2 POC ABG pO2 Sodium Potassium Chloride Carbon Dioxide BUN 59 H Creatinine 2.2 H Glucose 111 H POC Glucose Hemoglobin A1c Lactic Acid Calcium Phosphorus Magnesium Alkaline Phosphatase Total Creatine Kinase CK-MB (CK-2) CK-MB (CK-2) Rel Index Troponin T NT-Pro-B Natriuret Pep Serum Total Protein Total Protein Albumin Ffygu-6-Iyiuhqtwo PEP Interpretation LDL Cholesterol Direct HDL Cholesterol PTH Intact 152.8 H Urine Creatinine Urine Total Protein Valproic Acid 10/17/18 10/17/18 10/18/18 12:17 21:32 06:36 WBC RBC Hgb Hct MCH RDW Lymph % (Auto) [place] % (Auto) Eos % (Auto) Lymph # [place] # Seg Neutrophils % APTT D-Dimer Heparin Anti-Xa Level POC ABG pH POC ABG pCO2 POC ABG pO2 Sodium Potassium Chloride Carbon Dioxide BUN Creatinine Glucose POC Glucose 130 H 402 H 217 H Hemoglobin A1c Lactic Acid Calcium Phosphorus Magnesium Alkaline Phosphatase Total Creatine Kinase CK-MB (CK-2) CK-MB (CK-2) Rel Index Troponin T NT-Pro-B Natriuret Pep Serum Total Protein Total Protein Albumin Wdriz-7-Jtdrfljch PEP Interpretation LDL Cholesterol Direct HDL Cholesterol PTH Intact Urine Creatinine Urine Total Protein Valproic Acid 10/18/18 10/18/18 10/18/18 08:19 12:24 18:30 WBC RBC Hgb Hct MCH RDW Lymph % (Auto) [place] % (Auto) Eos % (Auto) Lymph # [place] # Seg Neutrophils % APTT D-Dimer Heparin Anti-Xa Level POC ABG pH POC ABG pCO2 POC ABG pO2 Sodium Potassium 5.6 H Chloride 107.3 H Carbon Dioxide BUN 62 H Creatinine 2.3 H Glucose 201 H POC Glucose 159 H 136 H Hemoglobin A1c Lactic Acid Calcium Phosphorus Magnesium Alkaline Phosphatase Total Creatine Kinase CK-MB (CK-2) CK-MB (CK-2) Rel Index Troponin T NT-Pro-B Natriuret Pep Serum Total Protein Total Protein Albumin Evpyc-6-Nndxzwkhh PEP Interpretation LDL Cholesterol Direct HDL Cholesterol PTH Intact Urine Creatinine Urine Total Protein Valproic Acid 10/19/18 10/19/18 10/19/18 04:53 04:53 11:33 WBC RBC 2.74 L Hgb 7.5 L Hct 23.0 L MCH 27 L RDW 17.9 H Lymph % (Auto) 11.3 L [place] % (Auto) 14.5 H Eos % (Auto) Lymph # 1.0 L [place] # 1.2 H Seg Neutrophils % 71.4 H APTT D-Dimer Heparin Anti-Xa Level POC ABG pH POC ABG pCO2 POC ABG pO2 Sodium Potassium Chloride Carbon Dioxide 33 H BUN 33 H Creatinine Glucose 52 L POC Glucose 148 H Hemoglobin A1c Lactic Acid Calcium Phosphorus Magnesium Alkaline Phosphatase Total Creatine Kinase CK-MB (CK-2) CK-MB (CK-2) Rel Index Troponin T NT-Pro-B Natriuret Pep Serum Total Protein Total Protein Albumin Iijew-4-Kdtuhcnln PEP Interpretation LDL Cholesterol Direct HDL Cholesterol PTH Intact Urine Creatinine Urine Total Protein Valproic Acid 10/19/18 10/20/18 10/20/18 21:10 05:30 18:14 WBC RBC Hgb Hct MCH RDW Lymph % (Auto) [place]anner % (Auto) Eos % (Auto) Lymph # [place] # Seg Neutrophils % APTT D-Dimer Heparin Anti-Xa Level POC ABG pH POC ABG pCO2 POC ABG pO2 Sodium Potassium 5.1 H Chloride Carbon Dioxide 31 H BUN 40 H Creatinine 1.6 H Glucose POC Glucose 132 H 114 H Hemoglobin A1c Lactic Acid Calcium Phosphorus Magnesium Alkaline Phosphatase Total Creatine Kinase CK-MB (CK-2) CK-MB (CK-2) Rel Index Troponin T NT-Pro-B Natriuret Pep Serum Total Protein Total Protein Albumin Swcnu-9-Qdmavmjkk PEP Interpretation LDL Cholesterol Direct HDL Cholesterol PTH Intact Urine Creatinine Urine Total Protein Valproic Acid 10/20/18 10/21/18 10/21/18 20:57 06:26 06:26 WBC RBC 2.76 L Hgb 7.7 L Hct 23.1 L MCH RDW 18.2 H Lymph % (Auto) [place]anner % (Auto) Eos % (Auto) Lymph # [place] # Seg Neutrophils % APTT D-Dimer Heparin Anti-Xa Level POC ABG pH POC ABG pCO2 POC ABG pO2 Sodium 146 H Potassium Chloride Carbon Dioxide 31 H BUN 41 H Creatinine 1.6 H Glucose POC Glucose 196 H Hemoglobin A1c Lactic Acid Calcium Phosphorus 4.70 H Magnesium Alkaline Phosphatase Total Creatine Kinase CK-MB (CK-2) CK-MB (CK-2) Rel Index Troponin T NT-Pro-B Natriuret Pep Serum Total Protein Total Protein Albumin Menrh-8-Grytilpan PEP Interpretation LDL Cholesterol Direct HDL Cholesterol PTH Intact Urine Creatinine Urine Total Protein Valproic Acid 10/21/18 10/21/18 06:26 08:52 WBC RBC Hgb Hct MCH RDW Lymph % (Auto) [place] % (Auto) Eos % (Auto) Lymph # [place] # Seg Neutrophils % APTT D-Dimer Heparin Anti-Xa Level POC ABG pH POC ABG pCO2 POC ABG pO2 Sodium Potassium Chloride Carbon Dioxide BUN Creatinine Glucose POC Glucose Hemoglobin A1c Lactic Acid Calcium Phosphorus Magnesium Alkaline Phosphatase 258 H Total Creatine Kinase CK-MB (CK-2) CK-MB (CK-2) Rel Index Troponin T NT-Pro-B Natriuret Pep Serum Total Protein Total Protein Albumin Dlstz-6-Rordawsrd PEP Interpretation LDL Cholesterol Direct HDL Cholesterol PTH Intact Urine Creatinine Urine Total Protein Valproic Acid 46.4 L Allied health notes reviewed: nursing
[2018-10-21 14:42] LABS: Anisocytosis 1+; Band Neutrophils # (Manual) 0.5 K/mm3; Basophils % (Manual) 0 % (0.0-1.8); Eosinophils % (Manual) 0 % (0.0-4.3); Poikilocytosis 1+; Total Cells Counted 100
[2018-10-21] MEDS: ZAROXOLYN PO SCH (17:47)
[2018-10-21] MEDS: PRAVACHOL PO SCH (22:55)
[2018-10-21] MEDS: RisperDAL PO SCH (22:55)
[2018-10-21] MEDS: PERCOCET 5/325 PO PRN (23:47)
[2018-10-22] MEDS: SODIUM CHLORIDE FLUSH SYRINGE 10 ML IV SCH ×3 (00:44→23:04)
[2018-10-22] MEDS: LASIX IV SCH ×2 (05:21→18:19)
[2018-10-22] MEDS: HEPARIN SUB-Q SCH ×4 (05:22→22:58)
[2018-10-22 06:15] LABS: Basophils % (Auto) 0.1 % (0.0-1.8); Eosinophils # (Auto) 0.2 K/mm3 (0.0-0.4); Eosinophils % (Auto) 2.1 % (0.0-4.3); Hemoglobin 6.1 gm/dl (11.8-15.2); Lymphocytes # (Auto) 1.2 K/mm3 (1.2-5.4); Lymphocytes % (Auto) 15.4 % (13.4-35.0); Mean Corpuscular HGB Conc 34 % (32-34); Mean Corpuscular Volume 84 fl (84-94); Monocytes # (Auto) 1.2 K/mm3 (0.0-0.8); Monocytes % (Auto) 14.8 % (0.0-7.3); Platelet Count 161 K/mm3 (140-440); Red Blood Count 2.17 M/mm3 (3.65-5.03); Red Cell Distribution Width 18.2 % (13.2-15.2)
[2018-10-22 06:25] LABS: Hematocrit 20.7 % (35.5-45.6)
[2018-10-22 06:40] LABS: Calcium 8.3 mg/dL (8.4-10.2)
[2018-10-22] MEDS: HumuLIN R SUB-Q SCH ×4 (08:07→23:04)
--- NOTE | 2018-10-22 09:31 | Progress Note ---
Assessment and Plan 1. Acute kidney injury: MAXIMO likely Vasomotor / hemodynamic mediated in the setting of hypotension. Patient was started on hemodialysis on 10/11/2018 due to continued decline in the Renal function and hyperkalemia. He was last dialyzed on 10/18/18. Likely CKD stage 3, creatinine level appears stable. Monitor renal function. 2. FEN: Volume overload, improved. S/p multiple sessions of Isolated UF. Change IV to PO Lasix. continue PO Metolazone. Kayexalate three times a week. Metabolic alkalosis, Diamox if needed. 3. CHF exacerbation: Was on Dobutamine drip. 4. Hypotension: BP is better. 5. : Miranda catheter was removed and patient is able to void without any difficulty. 6. Anemia: Secondary to bleeding from the hemodialysis catheter site. 2 units of PRBC today. Monitor. Subjective Date of service: 10/22/18 Principal diagnosis: Severe Sepsis with Shock; Acute encephalopathy; MAXIMO; Diabetes II; CMOP Interval history: Patient was seen and examined at the bedside. Patient inadvertently pulled out the hemodialysis catheter. Objective - Vital Signs Vital signs: Vital Signs - 12hr 10/21/18 10/21/18 10/22/18 22:55 23:08 03:39 Temperature 97.8 F 97.9 F Pulse Rate 81 79 Respiratory 18 18 Rate Blood Pressure 162/76 162/76 124/62 O2 Sat by Pulse 98 93 Oximetry 10/22/18 10/22/18 05:00 08:22 Temperature 98.2 F Pulse Rate 75 75 Respiratory 18 Rate Blood Pressure 129/63 O2 Sat by Pulse 97 Oximetry - General Appearance General appearance: well-developed, well-nourished, appears stated age, other (not in distress) EENT: ATNC, PERRL, mucous membranes moist, hearing intact, vision intact Neck: supple Respiratory: Present: Clear to Ascultation Cardiology: regular, S1S2, no murmurs Gastrointestinal: normoactive bowel sounds, no tenderness, no distended Integumentary: other (left foot dressing) Neurologic: no focal deficit, no asterixis, alert and oriented x3 Musculoskeletal: other (no edema) - Lab 10/22/18 05:25 10/22/18 05:25 Most recent lab results Calcium 8.3 mg/dL (8.4-10.2) L 10/22/18 05:25 Phosphorus 4.70 mg/dL (2.5-4.5) H 10/21/18 06:26 Magnesium 2.20 mg/dL (1.7-2.3) 10/21/18 06:26 Urine Creatinine 118.6 mg/dL (0.1-20.0) H 10/10/18 22:30 Urine Sodium 35 mmol/L 10/10/18 22:30 Urine Total Protein 152 mg/dL (5-11.8) H 10/10/18 22:30 Medications & Allergies - Medications Allergies/Adverse Reactions: Allergies No Known Allergies Allergy (Unverified 10/09/18 10:44) Home Medications: Home Medications Medication Instructions Recorded Confirmed Last Taken Type Carvedilol [Coreg] 3.125 mg PO BID 10/09/18 10/09/[address] [DepaKOTE DR] 500 mg PO BID 10/09/18 10/09/18 Unknown History Ferrous Sulfate [Feosol] 325 mg PO QDAY 10/09/18 10/09/18 Unknown History Furosemide [Lasix] 80 mg PO DAILY 10/09/18 10/09/18 Unknown History Gabapentin [Neurontin] 300 mg PO Q8HR 10/09/18 10/09/18 Unknown History ISOSORBIDE MONOnitrate [Imdur ER] 30 mg PO DAILY 10/09/18 10/09/18 Unknown History Insulin Glargine,Hum.rec.anlog 40 units SQ QHS 10/09/18 10/09/18 Unknown History [Lantus] Magnesium Oxide [Mag-Ox] 400 mg PO DAILY 10/09/18 10/09/18 Unknown History Simvastatin (Nf) [Zocor TAB] 20 mg PO QHS 10/09/18 10/09/18 Unknown History Sulfamethoxazole/Trimethoprim 1 each PO BID 10/09/18 10/09/18 Unknown History [Bactrim DS TAB] glipiZIDE [Glipizide] 10 mg PO DAILY 10/09/18 10/09/18 Unknown History hydrALAZINE [Apresoline TAB] 100 mg PO BID 10/09/18 10/09/18 Unknown History risperiDONE [RisperDAL] 1 mg PO QHS 10/09/18 10/09/18 Unknown History Active Medications: Generic Name Dose Route Start Last Admin Trade Name Freq PRN Reason Stop Dose Admin Albumin Human 25 gm 10/11/18 09:35 Alburx 25% (Albumin) IV JUDE PRN Hypotension Aspirin 325 mg 10/10/18 10:00 10/21/18 09:34 Aspirin PO 325 mg QDAY JAMIL Administration Carvedilol 6.25 mg 10/14/18 22:00 10/21/18 22:55 Coreg PO 6.25 mg BID JAMIL Administration Dextrose 50 ml 10/10/18 11:03 10/16/18 07:14 D50w (25gm) Syringe IV 50 ml PRN PRN Administration Hypoglycemia Famotidine 20 mg 10/10/18 12:00 10/21/18 09:35 Pepcid PO 20 mg DAILY JAMIL Administration Ferrous Sulfate 325 mg 10/10/18 10:00 10/21/18 09:47 Feosol PO Not Given QDAY JAMIL Furosemide 80 mg 10/16/18 18:00 10/22/18 05:21 Lasix IV 80 mg 0600,1800 JAMIL Administration Gabapentin 300 mg 10/15/18 10:00 10/21/18 09:45 Neurontin PO Not Given DAILY JAMIL Heparin Sodium (Porcine) 5,000 unit 10/11/18 15:00 10/22/18 05:22 Heparin SUB-Q 5,000 unit Q8HR JAMIL Administration Hydralazine HCl 20 mg 10/13/18 18:43 10/21/18 09:35 Apresoline IV 20 mg Q4HR PRN Administration Increased Blood Pressure Sodium Chloride 100 mls @ 999 mls/hr 10/19/18 14:59 Nacl 0.9% IV JUDE PRN Hypotension Insulin Human Regular 0 units 10/10/18 11:30 10/22/18 08:07 Humulin R SUB-Q Not Given ACHS [facility] Protocol Magnesium Hydroxide 30 ml 10/17/18 14:28 10/19/18 10:58 Milk Of Magnesia PO 30 ml QDAY PRN Administration Constipation Metolazone 5 mg 10/20/18 17:30 10/21/18 17:47 Zaroxolyn PO 5 mg DAILY@1730 JAMIL Administration Oxycodone/Acetaminophen 1 tab 10/19/18 10:18 10/21/18 23:47 Percocet 5/325 PO 1 tab Q8H PRN Administration Pain, Moderate (4-6) Pravastatin Sodium 40 mg 10/09/18 22:00 10/21/18 22:55 Pravachol PO 40 mg QHS JAMIL Administration Risperidone 1 mg 10/09/18 22:00 10/21/18 22:55 Risperdal PO 1 mg QHS JAMIL Administration Sodium Chloride 10 ml 10/09/18 13:00 10/22/18 00:44 Sodium Chloride Flush Syringe 10 Ml IV Not Given BID JAMIL Sodium Chloride 10 ml 10/09/18 13:00 Sodium Chloride Flush Syringe 10 Ml IV PRN PRN LINE FLUSH Sodium Polystyrene Sulfonate 30 gm 10/21/18 14:00 10/21/18 13:48 Kionex PO 30 gm MoWeFr JAMIL Administration
[2018-10-22] MEDS: ASPIRIN PO SCH (10:29)
[2018-10-22] MEDS: FEOSOL PO SCH (10:29)
[2018-10-22] MEDS: PEPCID PO SCH (10:30)
[2018-10-22] MEDS ORDERED: NACL 0.9% 500 ML 500 ML IV NR (10:30)
[2018-10-22] MEDS: COREG PO SCH ×2 (10:30→22:58)
[2018-10-22] MEDS: NEURONTIN PO SCH (10:34)
--- NOTE | 2018-10-22 11:55 | Progress Note ---
Subjective - Reason for Consult Consult date: 10/22/18 Reason for consult: Psychiatry Follow-up - Chief Complaint Chief complaint: "Hello" 48-year-old AA male presenting with chief complaint of chest pain. Psychiatry was consulted to see the patient for medication management. Also, the patient was transferred from [place]. Today the patient is calm and cooperative during the assessment. He stated that he was having a good day and look forward to being discharged. He denies SI/HI's and AVH's. 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 No overt psychosis seen with the patient. Today the patient is calm and cooperative during the assessment. Alkaline Phosphatase elevated 259. Recommendation/Plan: Continue home medication Risperdal 1 mg PO HS for mood. The patient should continue the lowest dose of Risperdal if it's effective, the patient is having renal issues. Discussed possible metabolic side effects of Risperdal with the patient. Psy sign off. Dispo: The patient can follow up with [facility] in [place], [place] for outpatient psy services. Will staff with Dr. Amol Byers.
--- NOTE | 2018-10-22 12:33 | Progress Note ---
Assessment and Plan Assessment and plan: -- Anemia: Chronic disease ;transfuse 2 unit PRBC Closely monitor H&H and transfuse additional PRBC as needed --Altered mental status/Acute encephalopathy ; present on admission head CT with no acute process, currently improved, and --Bilateral moderate pleural effusion; Spontaneous improvement of right pleural effusion from 300 mL- 31 mL Left pleural effusion decreased from 421 mL-112 mL No indication for thoracentesis, continue hemodialysis --MAXIMO / hyperkalemia : HD per nephro --Hypotension- s/p vasopressor , currently hypertensive. --NSTEMI type II- s/p heparin drip, obtained 2d echo, cardiology evaluated and signed off Outpatient follow-up for further evaluation and management --Acute on chronic systolic CHF: EF 35-40%, cont aspirin/statin, monitor daily wt, ins/os, restrict fluid --Sinus bradycardia -resolved, avoid beta blockers --Anemia, chronic kidney disease; closely monitor --HTN, continue current antihypertensives and when necessary medications --DM, cont SSI, Accu-Cheks, ADA diet, insulin as needed --HLP, cont statin -- h/o psych disorder, supportive care, discussed with psych cleared to d/c home,no need to return to psych facility --Extensive scrotal swelling, ultrasound; thick skin, testis and epididymis normal --DC planning per case management. Disposition-per psych and nephrology Plan of care is reviewed with the patient's nurse and case management History Interval history: Sincerely and examined medical records reviewed Patient had a Dental removal of hemodialysis catheter from right groin Had mild bleeding, improved with pressure bandage Today patient is comfortable, mild drop in H&H No new complaints Vital signs reviewed Hospitalist Physical - Constitutional Vitals: Temp Pulse Resp BP Pulse Ox 98.0 F 80 18 157/81 98 10/22/18 12:26 10/22/18 12:27 10/22/18 12:27 10/22/18 12:27 10/22/18 12:27 General appearance: Present: no acute distress, well-nourished - EENT Eyes: Present: PERRL, EOM intact - Neck Neck: Present: supple, normal ROM - Respiratory Respiratory effort: normal Respiratory: bilateral: diminished, negative: rales, rhonchi, wheezing - Cardiovascular Rhythm: regular Heart Sounds: Present: S1 & S2 - Extremities Extremities: no ischemia, No edema - Abdominal General gastrointestinal: soft, non-tender, non-distended, normal bowel sounds - Integumentary Integumentary: Present: clear, warm - Psychiatric Psychiatric: appropriate mood/affect, cooperative - Neurologic Neurologic: CNII-XII intact, moves all extremities Results - Labs CBC & Chem 7: 10/22/18 05:25 10/22/18 05:25 Labs: Laboratory Last Values WBC 7.9 K/mm3 (4.5-11.0) 10/22/18 05:25 RBC 2.17 M/mm3 (3.65-5.03) L 10/22/18 05:25 Hgb 6.1 gm/dl (11.8-15.2) L 10/22/18 05:25 Hct 20.7 % (35.5-45.6) L 10/22/18 05:25 MCV 84 fl (84-94) 10/22/18 05:25 MCH 28 pg (28-32) 10/22/18 05:25 MCHC 34 % (32-34) 10/22/18 05:25 RDW 18.2 % (13.2-15.2) H 10/22/18 05:25 Plt Count 161 K/mm3 (140-440) 10/22/18 05:25 Lymph % (Auto) 15.4 % (13.4-35.0) 10/22/18 05:25 [place] % (Auto) 14.8 % (0.0-7.3) H 10/22/18 05:25 Eos % (Auto) 2.1 % (0.0-4.3) 10/22/18 05:25 Baso % (Auto) 0.1 % (0.0-1.8) 10/22/18 05:25 Lymph # 1.2 K/mm3 (1.2-5.4) 10/22/18 05:25 [place] # 1.2 K/mm3 (0.0-0.8) H 10/22/18 05:25 Eos # 0.2 K/mm3 (0.0-0.4) 10/22/18 05:25 Baso # 0.0 K/mm3 (0.0-0.1) 10/22/18 05:25 Add Manual Diff Complete 10/21/18 06:26 Total Counted 100 10/21/18 06:26 Seg Neutrophils % 67.6 % (40.0-70.0) 10/22/18 05:25 Seg Neuts % (Manual) 79.0 % (40.0-70.0) H 10/21/18 06:26 Band Neutrophils % 7.0 % 10/21/18 06:26 Lymphocytes % (Manual) 9.0 % (13.4-35.0) L 10/21/18 06:26 Reactive Lymphs % (Man) 0 % 10/21/18 06:26 Monocytes % (Manual) 5.0 % (0.0-7.3) 10/21/18 06:26 Eosinophils % (Manual) 0 % (0.0-4.3) 10/21/18 06:26 Basophils % (Manual) 0 % (0.0-1.8) 10/21/18 06:26 Metamyelocytes % 0 % 10/21/18 06:26 Myelocytes % 0 % 10/21/18 06:26 Promyelocytes % 0 % 10/21/18 06:26 Blast Cells % 0 % 10/21/18 06:26 Nucleated RBC % Not Reportable 10/21/18 06:26 Seg Neutrophils # 5.4 K/mm3 (1.8-7.7) 10/22/18 05:25 Seg Neutrophils # Man 5.8 K/mm3 (1.8-7.7) 10/21/18 06:26 Band Neutrophils # 0.5 K/mm3 10/21/18 06:26 Lymphocytes # (Manual) 0.7 K/mm3 (1.2-5.4) L 10/21/18 06:26 Abs React Lymphs (Man) 0.0 K/mm3 10/21/18 06:26 Monocytes # (Manual) 0.4 K/mm3 (0.0-0.8) 10/21/18 06:26 Eosinophils # (Manual) 0.0 K/mm3 (0.0-0.4) 10/21/18 06:26 Basophils # (Manual) 0.0 K/mm3 (0.0-0.1) 10/21/18 06:26 Metamyelocytes # 0.0 K/mm3 10/21/18 06:26 Myelocytes # 0.0 K/mm3 10/21/18 06:26 Promyelocytes # 0.0 K/mm3 10/21/18 06:26 Blast Cells # 0.0 K/mm3 10/21/18 06:26 WBC Morphology Not Reportable 10/21/18 06:26 Hypersegmented Neuts Not Reportable 10/21/18 06:26 Hyposegmented Neuts Not Reportable 10/21/18 06:26 Hypogranular Neuts Not Reportable 10/21/18 06:26 Smudge Cells Not Reportable 10/21/18 06:26 Toxic Granulation Not Reportable 10/21/18 06:26 Toxic Vacuolation Not Reportable 10/21/18 06:26 Dohle Bodies Not Reportable 10/21/18 06:26 Pelger-Huet Anomaly Not Reportable 10/21/18 06:26 Wong Rods Not Reportable 10/21/18 06:26 Platelet Estimate Not Reportable 10/21/18 06:26 Clumped Platelets Not Reportable 10/21/18 06:26 Plt Clumps, EDTA Not Reportable 10/21/18 06:26 Large Platelets Not Reportable 10/21/18 06:26 Giant Platelets Not Reportable 10/21/18 06:26 Platelet Satelliting Not Reportable 10/21/18 06:26 Plt Morphology Comment Not Reportable 10/21/18 06:26 RBC Morphology Not Reportable 10/21/18 06:26 Dimorphic RBCs Not Reportable 10/21/18 06:26 Polychromasia Not Reportable 10/21/18 06:26 Hypochromasia Not Reportable 10/21/18 06:26 Poikilocytosis 1+ 10/21/18 06:26 Anisocytosis 1+ 10/21/18 06:26 Microcytosis Not Reportable 10/21/18 06:26 Macrocytosis Not Reportable 10/21/18 06:26 Spherocytes Not Reportable 10/21/18 06:26 Pappenheimer Bodies Not Reportable 10/21/18 06:26 Sickle Cells Not Reportable 10/21/18 06:26 Target Cells Not Reportable 10/21/18 06:26 Tear Drop Cells Not Reportable 10/21/18 06:26 Ovalocytes Not Reportable 10/21/18 06:26 Helmet Cells Not Reportable 10/21/18 06:26 Fernandez-Picayune Bodies Not Reportable 10/21/18 06:26 Saxon Rings Not Reportable 10/21/18 06:26 Holden Cells Not Reportable 10/21/18 06:26 Bite Cells Not Reportable 10/21/18 06:26 Crenated Cell Not Reportable 10/21/18 06:26 Elliptocytes Not Reportable 10/21/18 06:26 Acanthocytes (Spur) Not Reportable 10/21/18 06:26 Rouleaux Not Reportable 10/21/18 06:26 Hemoglobin C Crystals Not Reportable 10/21/18 06:26 Schistocytes Not Reportable 10/21/18 06:26 Malaria parasites Not Reportable 10/21/18 06:26 Domenic Bodies Not Reportable 10/21/18 06:26 Hem Pathologist Commnt No 10/21/18 06:26 PT 14.0 Sec. (12.2-14.9) 10/17/18 Unknown INR 1.04 (0.87-1.13) 10/17/18 Unknown APTT 42.4 Sec. (24.2-36.6) H 10/09/18 14:25 D-Dimer 927.57 ng/mlDDU (0-234) H 10/10/18 13:36 Heparin Anti-Xa Level 0.49 U.I./ml (0.3-0.7) 10/11/18 04:31 POC ABG pH 7.359 (7.35-7.45) 10/15/18 13:21 POC ABG pCO2 48.4 (35-45) H 10/15/18 13:21 POC ABG pO2 77 (80-105) L 10/15/18 13:21 POC ABG HCO3 27.3 10/15/18 13:21 POC ABG Total CO2 29 10/15/18 13:21 POC ABG O2 Sat 95 10/15/18 13:21 POC ABG Base Excess 2 10/15/18 13:21 FiO2 21 % 10/15/18 13:21 Sodium 139 mmol/L (137-145) 10/22/18 05:25 Potassium 4.8 mmol/L (3.6-5.0) 10/22/18 05:25 Chloride 98.9 mmol/L (98-107) 10/22/18 05:25 Carbon Dioxide 31 mmol/L (22-30) H 10/22/18 05:25 Anion Gap 14 mmol/L 10/22/18 05:25 BUN 45 mg/dL (9-20) H 10/22/18 05:25 Creatinine 1.7 mg/dL (0.8-1.5) H 10/22/18 05:25 Estimated GFR 52 ml/min 10/22/18 05:25 BUN/Creatinine Ratio 26 % 10/22/18 05:25 Glucose 143 mg/dL (75-100) H 10/22/18 05:25 POC Glucose 186 (70-105) H 10/21/18 23:37 Hemoglobin A1c 8.2 % (4-6) H 10/10/18 05:00 Lactic Acid 0.60 mmol/L (0.7-2.0) L 10/10/18 13:36 Calcium 8.3 mg/dL (8.4-10.2) L 10/22/18 05:25 Phosphorus 4.70 mg/dL (2.5-4.5) H 10/21/18 06:26 Magnesium 2.20 mg/dL (1.7-2.3) 10/21/18 06:26 Total Bilirubin < 0.20 mg/dL (0.1-1.2) 10/11/18 20:45 AST 18 units/L (5-40) 10/21/18 06:26 ALT 29 units/L (7-56) 10/21/18 06:26 Alkaline Phosphatase 258 units/L (35-129) H 10/21/18 06:26 Total Creatine Kinase 481 units/L (55-170) H 10/09/18 11:22 CK-MB (CK-2) 20.5 ng/mL (0.0-4.0) H 10/09/18 11:22 CK-MB (CK-2) Rel Index 4.2 (0-4) H 10/09/18 11:22 Troponin T 0.139 ng/mL (0.00-0.029) H* 10/09/18 20:56 C-Reactive Protein 0.90 mg/dL (0.00-1.30) 10/10/18 13:36 NT-Pro-B Natriuret Pep 2963 pg/mL (0-450) H 10/09/18 11:22 Serum Total Protein 5.6 g/dL (6.1-8.1) L 10/15/18 05:39 Total Protein 6.2 g/dL (6.3-8.2) L 10/11/18 20:45 Albumin 2.5 g/dL (3.8-4.8) L 10/15/18 05:39 Albumin/Globulin Ratio 0.9 % 10/11/18 20:45 Xwmge-9-Xggdgoyws 0.4 g/dL (0.2-0.3) H 10/15/18 05:39 Jhdjf-7-Exuvsflwl 0.7 g/dL (0.5-0.9) 10/15/18 05:39 Beta Globulins 0.4 g/dL (0.2-0.5) 10/15/18 05:39 Gamma Globulins 1.2 g/dL (0.8-1.7) 10/15/18 05:39 Abnorm Protein Band 1 see below 10/15/18 05:39 PEP Interpretation see below H 10/15/18 05:39 Triglycerides 24 mg/dL (2-149) 10/09/18 11:22 Cholesterol 115 mg/dL (50-199) 10/09/18 11:22 LDL Cholesterol Direct 49 mg/dL (50-130) L 10/09/18 11:22 HDL Cholesterol 73 mg/dL (40-59) H 10/09/18 11:22 Cholesterol/HDL Ratio 1.57 % 10/09/18 11:22 Amylase 50 units/L (27-131) 10/21/18 06:26 Lipase 13 units/L (13-60) 10/21/18 06:26 PTH Intact 152.8 pg/mL (15-65) H 10/17/18 05:22 Urine Color Tamie (Yellow) 10/10/18 22:30 Urine Turbidity Clear (Clear) 10/10/18 22:30 Urine pH 5.0 (5.0-7.0) 10/10/18 22:30 Ur Specific [place] 1.016 (1.003-1.030) 10/10/18 22:30 Urine Protein 100 mg/dl mg/dL (Negative) 10/10/18 22:30 Urine Glucose (UA) 50 mg/dL (Negative) 10/10/18 22:30 Urine Ketones Neg mg/dL (Negative) 10/10/18 22:30 Urine Blood Neg (Negative) 10/10/18 22:30 Urine Nitrite Neg (Negative) 10/10/18 22:30 Urine Bilirubin Neg (Negative) 10/10/18 22:30 Urine Urobilinogen 4.0 mg/dL (<2.0) 10/10/18 22:30 Ur Leukocyte Esterase Tr (Negative) 10/10/18 22:30 Urine WBC (Auto) 2.0 /HPF (0.0-6.0) 10/10/18 22:30 Urine RBC (Auto) 5.0 /HPF (0.0-6.0) 10/10/18 22:30 U Epithel Cells (Auto) < 1.0 /HPF (0-13.0) 10/10/18 22:30 Urine Bacteria (Auto) 1+ /HPF (Negative) 10/10/18 22:30 Hyaline Casts 1 /LPF 10/10/18 22:30 Urine Mucus Few /HPF 10/10/18 22:30 Urine Creatinine 118.6 mg/dL (0.1-20.0) H 10/10/18 22:30 Protein/Creatinin Ratio 1.28 10/10/18 22:30 Urine Sodium 35 mmol/L 10/10/18 22:30 Urine Total Protein 152 mg/dL (5-11.8) H 10/10/18 22:30 Valproic Acid 46.4 ug/mL (50-100) L 10/21/18 08:52 BROWN Screen Negative (Negative) 10/15/18 05:39 Proteinase 3 (PR3) Ab <1.0 AI (<1.0) 10/15/18 05:39 Myeloperoxidase Ab <1.0 AI (<1.0) 10/15/18 05:39 Complement C3 129 mg/dL (82-185) 10/15/18 05:39 Complement C4 34 mg/dL (15-53) 10/15/18 05:39 Hepatitis A IgM Ab Non-reactive (NonReactive) 10/11/18 13:24 Hep Bs Antigen Non-reactive (Negative) 10/11/18 13:24 Hep B Core IgM Ab Non-reactive (NonReactive) 10/11/18 13:24 Hepatitis C Antibody Non-reactive (NonReactive) 10/11/18 13:24 Blood Type AB POSITIVE 10/22/18 10:31 Antibody Screen Negative 10/22/18 10:31 Crossmatch See Detail 10/22/18 10:31 Nutrition/Malnutrition Assess - Dietary Evaluation Nutrition/Malnutrition Findings: Nutrition Notes Start: 10/16/18 16:17 Freq: Status: Active Protocol: Document 10/18/18 18:14 RM (Rec: 10/18/18 18:24 RM [id number]) Nutrition Notes Initial or Follow up Reassessment Current Diagnosis Acute Kidney Injury Diabetes Hypertension Heart Failure Other Pertinent Diagnosis Encephalopathy, R leg diabetic PU, AMS Current Diet Cardiac/Renal/Consistent Carb w/Nepro Butter Pecan BID Labs/Tests K 5.6 Pertinent Medications Lasix Height 6 ft 2 in Weight 119 kg [place] Body Weight (lbs) 190.0 BMI 33.7 Subjective/Other Information Pt not in room at time of visit. Tech stated that pt ate most of her meals yesterday and drank all of the Nepro yesterday. Tech unsure of how much pt ate today. Percent of energy/protein needs met: 90%/94% Burn Absent Trauma Absent #1 Nutrition Diagnosis Inadequate oral intake As Evidenced by Signs and Symptoms pt meeting 90% of calorie needs and 94% of protein needs Diagnosis Progress(for reassessment Resolved documentation) Is patient on ventilator? No Is Patient Ambulatory and/or Out of Bed No REE-([facility]-confined to bed) [phone] Calculation Used for Recommendations [facility] Additional Notes Protein Needs: 103-134g (1-1. 3g/kg, 103kg adjBW) Fluid Needs: 1ml/kcal Nutrition Intervention Change Diet Order: Continue current Add Supplement/Snack (indicate name/kcal Continue Nepro BID /protein ) Provides kCal: 850 Provides Protein (gm) 38 Goal #1 Meet at least 75% of calorie and protein needs via PO and ONS intakes Anticipated Discharge Needs: Cardiac/Consistent Carb/Renal Follow-Up By: 10/25/18 Additional Comments Follow for PO and ONS intakes
[2018-10-22] MEDS: PERCOCET 5/325 PO PRN (13:50)
--- NOTE | 2018-10-22 14:02 | Progress Note ---
Assessment and Plan Patient alert, awake. Resting on room air.O2 saturation 98%. No acute respiratory distress. Patients V/Q scan reported intermediate probability for PE. Venous doppler studies of legs reported No DVT. Patient repeat ultrasound of chest reported no significant pleural effusions for thoracentesis. Patients hgb 6.1. Receiving blood transfusion. - Patient Problems (1) CHF (congestive heart failure) Current Visit: Yes Status: Acute Qualifiers: Heart failure type: systolic Heart failure chronicity: acute Qualified Code(s): I50.21 - Acute systolic (congestive) heart failure Plan to address problem: Management as per cardiology. (2) Chest pain Current Visit: Yes Status: Acute Plan to address problem: Management as per cardiology. (3) ACS (acute coronary syndrome) Current Visit: Yes Status: Acute (4) ARF (acute renal failure) with tubular necrosis Current Visit: Yes Status: Acute Plan to address problem: Management as per nephrology (5) Encephalopathy Current Visit: Yes Status: Acute Plan to address problem: Management as per primary care. (6) Pleural effusion, right Current Visit: Yes Status: Acute Plan to address problem: Repeat ultrasound of chest reported no significant pleural effusions. So no thoracentesis done. (7) Pulmonary infiltrates on CXR Current Visit: Yes Status: Acute Plan to address problem: Pulmonary infiltrates or atelectasis on the right side. Patient is treated with levaquin. (8) Acute respiratory failure with hypoxia and hypercapnia Current Visit: Yes Status: Acute Plan to address problem: POC ABG pH 7.286 (7.35-7.45) L 10/10/18 12:22 POC ABG pCO2 47.3 (35-45) H 10/10/18 12:22 POC ABG pO2 65 (80-105) L 10/10/18 12:22 POC ABG HCO3 22.5 10/10/18 12:22 POC ABG Total CO2 24 10/10/18 12:22 POC ABG O2 Sat 90 10/10/18 12:22 Recommend O2 2 litres via nasal canula. Brovanna/budesonide aerosol treatments q 12 hours. Albuterol/atrovent aerosol treatments q 6 hours prn for shortness of breath. Repeat ABGs PO2 77 on room air. Continue S/C heparin (9) Anemia Current Visit: Yes Status: Acute Plan to address problem: Patients HGB 6.1. Receiving blood transfusion. No active signs of bleeding. Anemia likely from chronic kidney disease. Subjective Date of service: 10/22/18 Principal diagnosis: Severe Sepsis with Shock; Acute encephalopathy; MAXIMO; D iabetes II; CMOP Interval history: Patient alert, awake. Resting on room air.O2 saturation 98%. No acute respiratory distress. Patients V/Q scan reported intermediate probability for PE. Venous doppler studies of legs reported No DVT. Patient repeat ultrasound of chest reported no significant pleural effusions for thoracentesis. Patients HGB 6.1. Receiving blood transfusion. Objective Vital Signs - 12hr 10/22/18 10/22/18 10/22/18 03:39 05:00 08:22 Temperature 97.9 F 98.2 F Pulse Rate 79 75 75 Respiratory 18 18 Rate Blood Pressure 124/62 129/63 O2 Sat by Pulse 93 97 Oximetry 10/22/18 10/22/18 10/22/18 10:30 12:26 12:27 Temperature 98.0 F Pulse Rate 81 80 Respiratory 18 Rate Blood Pressure 148/75 157/81 O2 Sat by Pulse 98 Oximetry 10/22/18 10/22/18 10/22/18 13:15 13:30 13:54 Temperature 97.8 F 97.8 F 97.8 F Pulse Rate 76 77 78 Respiratory 18 18 18 Rate Blood Pressure 143/76 147/79 135/69 O2 Sat by Pulse 98 98 98 Oximetry Constitutional: no acute distress, alert, other (middle aged AAM, normocephalic and atraumatic with normal respiratory effort) Eyes: non-icteric ENT: oropharynx moist Neck: supple, no lymphadenopathy, no JVD Effort: normal Ascultation: Bilateral: diminished breath sounds, rales (bases) Percussion: Bilateral: not dull Cardiovascular: regular rate and rhythm Gastrointestinal: normoactive bowel sounds, soft, non-tender, non-distended Integumentary: rash (feet) Extremities: no cyanosis, pulses normal, no ischemia or petechiae, edema (1+) Neurologic: normal mental status, non-focal exam, pupils equal and round, motor strength normal and, other (sensory numbness to feet) Psychiatric: mood appropriate, affect normal, other CBC and BMP: 10/22/18 05:25 10/22/18 05:25 ABG, PT/INR, D-dimer: ABG POC ABG pH 7.359 (7.35-7.45) 10/15/18 13:21 POC ABG pCO2 48.4 (35-45) H 10/15/18 13:21 POC ABG pO2 77 (80-105) L 10/15/18 13:21 POC ABG HCO3 27.3 10/15/18 13:21 POC ABG Total CO2 29 10/15/18 13:21 POC ABG O2 Sat 95 10/15/18 13:21 PT/INR, D-dimer PT 14.0 Sec. (12.2-14.9) 10/17/18 Unknown INR 1.04 (0.87-1.13) 10/17/18 Unknown D-Dimer 927.57 ng/mlDDU (0-234) H 10/10/18 13:36 Abnormal lab findings: Abnormal Labs 10/09/18 10/09/18 10/09/18 11:22 11:22 11:22 WBC 3.3 L RBC 3.03 L Hgb 8.4 L Hct 25.8 L MCH RDW 18.7 H Lymph % (Auto) [place] % (Auto) 12.1 H Eos % (Auto) 4.6 H Lymph # 0.5 L [place] # Seg Neutrophils % Seg Neuts % (Manual) Lymphocytes % (Manual) Lymphocytes # (Manual) APTT 42.8 H D-Dimer Heparin Anti-Xa Level POC ABG pH POC ABG pCO2 POC ABG pO2 Sodium Potassium 5.2 H Chloride 108.2 H Carbon Dioxide BUN 49 H Creatinine 1.9 H Glucose 153 H POC Glucose Hemoglobin A1c Lactic Acid Calcium Phosphorus Magnesium Alkaline Phosphatase Total Creatine Kinase 481 H CK-MB (CK-2) 20.5 H CK-MB (CK-2) Rel Index 4.2 H Troponin T 0.153 H* NT-Pro-B Natriuret Pep 2963 H Serum Total Protein Total Protein Albumin Adckw-3-Xfoakftmd PEP Interpretation LDL Cholesterol Direct 49 L HDL Cholesterol 73 H PTH Intact Urine Creatinine Urine Total Protein Valproic Acid Crossmatch 10/09/18 10/09/18 10/09/18 13:43 14:25 14:25 WBC RBC Hgb 8.2 L Hct 26.2 L MCH RDW Lymph % (Auto) [place] % (Auto) Eos % (Auto) Lymph # [place] # Seg Neutrophils % Seg Neuts % (Manual) Lymphocytes % (Manual) Lymphocytes # (Manual) APTT 42.4 H D-Dimer Heparin Anti-Xa Level POC ABG pH POC ABG pCO2 POC ABG pO2 Sodium Potassium Chloride Carbon Dioxide BUN Creatinine Glucose POC Glucose 167 H Hemoglobin A1c Lactic Acid Calcium Phosphorus Magnesium Alkaline Phosphatase Total Creatine Kinase CK-MB (CK-2) CK-MB (CK-2) Rel Index Troponin T NT-Pro-B Natriuret Pep Serum Total Protein Total Protein Albumin Vttnk-1-Yhswdzkkd PEP Interpretation LDL Cholesterol Direct HDL Cholesterol PTH Intact Urine Creatinine Urine Total Protein Valproic Acid Crossmatch 10/09/18 10/09/18 10/09/18 17:28 20:56 21:23 WBC RBC Hgb Hct MCH RDW Lymph % (Auto) [place] % (Auto) Eos % (Auto) Lymph # [place] # Seg Neutrophils % Seg Neuts % (Manual) Lymphocytes % (Manual) Lymphocytes # (Manual) APTT D-Dimer Heparin Anti-Xa Level 0.28 L POC ABG pH POC ABG pCO2 POC ABG pO2 Sodium Potassium Chloride Carbon Dioxide BUN Creatinine Glucose POC Glucose Hemoglobin A1c Lactic Acid Calcium Phosphorus Magnesium Alkaline Phosphatase Total Creatine Kinase CK-MB (CK-2) CK-MB (CK-2) Rel Index Troponin T 0.136 H* 0.139 H* NT-Pro-B Natriuret Pep Serum Total Protein Total Protein Albumin Qgqje-3-Efvrnmxhh PEP Interpretation LDL Cholesterol Direct HDL Cholesterol PTH Intact Urine Creatinine Urine Total Protein Valproic Acid Crossmatch 10/10/18 10/10/18 10/10/18 00:10 05:00 05:00 WBC 3.3 L RBC 2.99 L Hgb 8.2 L Hct 25.9 L MCH 27 L RDW 19.2 H Lymph % (Auto) [place] % (Auto) 13.2 H Eos % (Auto) 5.8 H Lymph # 0.5 L [place] # Seg Neutrophils % Seg Neuts % (Manual) Lymphocytes % (Manual) Lymphocytes # (Manual) APTT D-Dimer Heparin Anti-Xa Level POC ABG pH POC ABG pCO2 POC ABG pO2 Sodium Potassium 5.6 H Chloride 110.8 H Carbon Dioxide BUN 50 H Creatinine 2.2 H Glucose 52 L POC Glucose 60 L Hemoglobin A1c Lactic Acid Calcium 8.1 L Phosphorus Magnesium Alkaline Phosphatase Total Creatine Kinase CK-MB (CK-2) CK-MB (CK-2) Rel Index Troponin T NT-Pro-B Natriuret Pep Serum Total Protein Total Protein Albumin Tghha-2-Xweuwjise PEP Interpretation LDL Cholesterol Direct HDL Cholesterol PTH Intact Urine Creatinine Urine Total Protein Valproic Acid Crossmatch 10/10/18 10/10/18 10/10/18 05:00 06:11 11:30 WBC RBC Hgb Hct MCH RDW Lymph % (Auto) [place] % (Auto) Eos % (Auto) Lymph # [place] # Seg Neutrophils % Seg Neuts % (Manual) Lymphocytes % (Manual) Lymphocytes # (Manual) APTT D-Dimer Heparin Anti-Xa Level POC ABG pH POC ABG pCO2 POC ABG pO2 Sodium Potassium Chloride Carbon Dioxide BUN Creatinine Glucose POC Glucose 57 L 48 L Hemoglobin A1c 8.2 H Lactic Acid Calcium Phosphorus Magnesium Alkaline Phosphatase Total Creatine Kinase CK-MB (CK-2) CK-MB (CK-2) Rel Index Troponin T NT-Pro-B Natriuret Pep Serum Total Protein Total Protein Albumin Njsxf-7-Fvcronrpp PEP Interpretation LDL Cholesterol Direct HDL Cholesterol PTH Intact Urine Creatinine Urine Total Protein Valproic Acid Crossmatch 10/10/18 10/10/18 10/10/18 12:22 13:36 13:36 WBC RBC Hgb Hct MCH RDW Lymph % (Auto) [place] % (Auto) Eos % (Auto) Lymph # [place] # Seg Neutrophils % Seg Neuts % (Manual) Lymphocytes % (Manual) Lymphocytes # (Manual) APTT D-Dimer 927.57 H Heparin Anti-Xa Level POC ABG pH 7.286 L POC ABG pCO2 47.3 H POC ABG pO2 65 L Sodium Potassium Chloride Carbon Dioxide BUN Creatinine Glucose POC Glucose Hemoglobin A1c Lactic Acid 0.60 L Calcium Phosphorus Magnesium Alkaline Phosphatase Total Creatine Kinase CK-MB (CK-2) CK-MB (CK-2) Rel Index Troponin T NT-Pro-B Natriuret Pep Serum Total Protein Total Protein Albumin Xlxqs-7-Ncnncbnba PEP Interpretation LDL Cholesterol Direct HDL Cholesterol PTH Intact Urine Creatinine Urine Total Protein Valproic Acid Crossmatch 10/10/18 10/10/18 10/10/18 16:42 21:12 22:30 WBC RBC Hgb Hct MCH RDW Lymph % (Auto) [place] % (Auto) Eos % (Auto) Lymph # [place] # Seg Neutrophils % Seg Neuts % (Manual) Lymphocytes % (Manual) Lymphocytes # (Manual) APTT D-Dimer Heparin Anti-Xa Level POC ABG pH POC ABG pCO2 POC ABG pO2 Sodium Potassium Chloride Carbon Dioxide BUN Creatinine Glucose POC Glucose 122 H 119 H Hemoglobin A1c Lactic Acid Calcium Phosphorus Magnesium Alkaline Phosphatase Total Creatine Kinase CK-MB (CK-2) CK-MB (CK-2) Rel Index Troponin T NT-Pro-B Natriuret Pep Serum Total Protein Total Protein Albumin Krexo-4-Wnazhamwu PEP Interpretation LDL Cholesterol Direct HDL Cholesterol PTH Intact Urine Creatinine 118.6 H Urine Total Protein 152 H Valproic Acid Crossmatch 10/11/18 10/11/18 10/11/18 04:31 04:31 13:15 WBC RBC Hgb 8.7 L Hct 27.9 L MCH RDW Lymph % (Auto) [place] % (Auto) Eos % (Auto) Lymph # [place] # Seg Neutrophils % Seg Neuts % (Manual) Lymphocytes % (Manual) Lymphocytes # (Manual) APTT D-Dimer Heparin Anti-Xa Level POC ABG pH POC ABG pCO2 POC ABG pO2 Sodium Potassium 6.6 H* 6.4 H* Chloride Carbon Dioxide BUN 55 H Creatinine 2.9 H Glucose POC Glucose Hemoglobin A1c Lactic Acid Calcium 7.6 L Phosphorus Magnesium Alkaline Phosphatase Total Creatine Kinase CK-MB (CK-2) CK-MB (CK-2) Rel Index Troponin T NT-Pro-B Natriuret Pep Serum Total Protein Total Protein Albumin Sxtrk-8-Iunkqsnfb PEP Interpretation LDL Cholesterol Direct HDL Cholesterol PTH Intact Urine Creatinine Urine Total Protein Valproic Acid Crossmatch 10/11/18 10/11/18 10/12/18 20:45 22:37 04:25 WBC RBC Hgb Hct MCH RDW Lymph % (Auto) [place] % (Auto) Eos % (Auto) Lymph # [place] # Seg Neutrophils % Seg Neuts % (Manual) Lymphocytes % (Manual) Lymphocytes # (Manual) APTT D-Dimer Heparin Anti-Xa Level POC ABG pH POC ABG pCO2 POC ABG pO2 Sodium Potassium Chloride Carbon Dioxide BUN 37 H 38 H Creatinine 2.4 H 2.3 H Glucose POC Glucose 117 H Hemoglobin A1c Lactic Acid Calcium 7.5 L 7.6 L Phosphorus Magnesium Alkaline Phosphatase 261 H Total Creatine Kinase CK-MB (CK-2) CK-MB (CK-2) Rel Index Troponin T NT-Pro-B Natriuret Pep Serum Total Protein Total Protein 6.2 L Albumin 3.0 L Zdcne-4-Ifejqdfdo PEP Interpretation LDL Cholesterol Direct HDL Cholesterol PTH Intact Urine Creatinine Urine Total Protein Valproic Acid Crossmatch 10/12/18 10/12/18 10/13/18 10:02 21:33 03:28 WBC RBC Hgb 7.6 L 7.7 L Hct 24.1 L 23.8 L MCH RDW Lymph % (Auto) [place] % (Auto) Eos % (Auto) Lymph # [place] # Seg Neutrophils % Seg Neuts % (Manual) Lymphocytes % (Manual) Lymphocytes # (Manual) APTT D-Dimer Heparin Anti-Xa Level POC ABG pH POC ABG pCO2 POC ABG pO2 Sodium Potassium Chloride Carbon Dioxide BUN Creatinine Glucose POC Glucose 109 H Hemoglobin A1c Lactic Acid Calcium Phosphorus Magnesium Alkaline Phosphatase Total Creatine Kinase CK-MB (CK-2) CK-MB (CK-2) Rel Index Troponin T NT-Pro-B Natriuret Pep Serum Total Protein Total Protein Albumin Qcytr-7-Cbaamyhxf PEP Interpretation LDL Cholesterol Direct HDL Cholesterol PTH Intact Urine Creatinine Urine Total Protein Valproic Acid Crossmatch 10/13/18 10/13/18 10/13/18 03:28 08:27 15:04 WBC RBC Hgb Hct MCH RDW Lymph % (Auto) [place] % (Auto) Eos % (Auto) Lymph # [place] # Seg Neutrophils % Seg Neuts % (Manual) Lymphocytes % (Manual) Lymphocytes # (Manual) APTT D-Dimer Heparin Anti-Xa Level POC ABG pH POC ABG pCO2 POC ABG pO2 Sodium Potassium Chloride Carbon Dioxide BUN 38 H Creatinine 1.9 H Glucose POC Glucose 136 H 160 H Hemoglobin A1c Lactic Acid Calcium 8.3 L Phosphorus Magnesium Alkaline Phosphatase Total Creatine Kinase CK-MB (CK-2) CK-MB (CK-2) Rel Index Troponin T NT-Pro-B Natriuret Pep Serum Total Protein Total Protein Albumin Ewvcz-7-Wstozyjic PEP Interpretation LDL Cholesterol Direct HDL Cholesterol PTH Intact Urine Creatinine Urine Total Protein Valproic Acid Crossmatch 10/13/18 10/13/18 10/14/18 16:53 23:06 06:06 WBC RBC Hgb Hct MCH RDW Lymph % (Auto) [place] % (Auto) Eos % (Auto) Lymph # [place] # Seg Neutrophils % Seg Neuts % (Manual) Lymphocytes % (Manual) Lymphocytes # (Manual) APTT D-Dimer Heparin Anti-Xa Level POC ABG pH POC ABG pCO2 POC ABG pO2 Sodium Potassium Chloride 107.7 H Carbon Dioxide BUN 39 H Creatinine 1.8 H Glucose 116 H POC Glucose 161 H 213 H Hemoglobin A1c Lactic Acid Calcium Phosphorus Magnesium 2.40 H Alkaline Phosphatase Total Creatine Kinase CK-MB (CK-2) CK-MB (CK-2) Rel Index Troponin T NT-Pro-B Natriuret Pep Serum Total Protein Total Protein Albumin Mqexy-7-Ucmtniwyj PEP Interpretation LDL Cholesterol Direct HDL Cholesterol PTH Intact Urine Creatinine Urine Total Protein Valproic Acid Crossmatch 10/14/18 10/14/18 10/14/18 06:34 11:01 13:50 WBC RBC Hgb 7.8 L Hct 24.8 L MCH RDW Lymph % (Auto) [place] % (Auto) Eos % (Auto) Lymph # [place] # Seg Neutrophils % Seg Neuts % (Manual) Lymphocytes % (Manual) Lymphocytes # (Manual) APTT D-Dimer Heparin Anti-Xa Level POC ABG pH POC ABG pCO2 POC ABG pO2 Sodium Potassium Chloride Carbon Dioxide BUN Creatinine Glucose POC Glucose 118 H 67 L Hemoglobin A1c Lactic Acid Calcium Phosphorus Magnesium Alkaline Phosphatase Total Creatine Kinase CK-MB (CK-2) CK-MB (CK-2) Rel Index Troponin T NT-Pro-B Natriuret Pep Serum Total Protein Total Protein Albumin Gbrsj-6-Ysercwsgb PEP Interpretation LDL Cholesterol Direct HDL Cholesterol PTH Intact Urine Creatinine Urine Total Protein Valproic Acid Crossmatch 10/14/18 10/15/18 10/15/18 21:37 05:39 05:39 WBC RBC Hgb 7.6 L Hct 23.5 L MCH RDW Lymph % (Auto) [place] % (Auto) Eos % (Auto) Lymph # [place] # Seg Neutrophils % Seg Neuts % (Manual) Lymphocytes % (Manual) Lymphocytes # (Manual) APTT D-Dimer Heparin Anti-Xa Level POC ABG pH POC ABG pCO2 POC ABG pO2 Sodium Potassium Chloride Carbon Dioxide BUN Creatinine Glucose POC Glucose 125 H Hemoglobin A1c Lactic Acid Calcium Phosphorus Magnesium Alkaline Phosphatase Total Creatine Kinase CK-MB (CK-2) CK-MB (CK-2) Rel Index Troponin T NT-Pro-B Natriuret Pep Serum Total Protein 5.6 L Total Protein Albumin 2.5 L Ecfsy-1-Riztqxcjs 0.4 H PEP Interpretation see below H LDL Cholesterol Direct HDL Cholesterol PTH Intact Urine Creatinine Urine Total Protein Valproic Acid Crossmatch 10/15/18 10/15/18 10/15/18 05:39 06:27 07:48 WBC RBC Hgb Hct MCH RDW Lymph % (Auto) [place] % (Auto) Eos % (Auto) Lymph # [place] # Seg Neutrophils % Seg Neuts % (Manual) Lymphocytes % (Manual) Lymphocytes # (Manual) APTT D-Dimer Heparin Anti-Xa Level POC ABG pH POC ABG pCO2 POC ABG pO2 Sodium Potassium Chloride Carbon Dioxide BUN 45 H Creatinine 2.1 H Glucose 59 L POC Glucose 46 L 65 L Hemoglobin A1c Lactic Acid Calcium 8.3 L Phosphorus Magnesium Alkaline Phosphatase Total Creatine Kinase CK-MB (CK-2) CK-MB (CK-2) Rel Index Troponin T NT-Pro-B Natriuret Pep Serum Total Protein Total Protein Albumin Jjwtb-9-Pgpiulyig PEP Interpretation LDL Cholesterol Direct HDL Cholesterol PTH Intact Urine Creatinine Urine Total Protein Valproic Acid Crossmatch 10/15/18 10/15/18 10/15/18 13:21 13:24 21:23 WBC RBC Hgb Hct MCH RDW Lymph % (Auto) [place] % (Auto) Eos % (Auto) Lymph # [place] # Seg Neutrophils % Seg Neuts % (Manual) Lymphocytes % (Manual) Lymphocytes # (Manual) APTT D-Dimer Heparin Anti-Xa Level POC ABG pH POC ABG pCO2 48.4 H POC ABG pO2 77 L Sodium Potassium Chloride Carbon Dioxide BUN Creatinine Glucose POC Glucose 106 H 160 H Hemoglobin A1c Lactic Acid Calcium Phosphorus Magnesium Alkaline Phosphatase Total Creatine Kinase CK-MB (CK-2) CK-MB (CK-2) Rel Index Troponin T NT-Pro-B Natriuret Pep Serum Total Protein Total Protein Albumin Iapbh-5-Xwozjxnzs PEP Interpretation LDL Cholesterol Direct HDL Cholesterol PTH Intact Urine Creatinine Urine Total Protein Valproic Acid Crossmatch 10/16/18 10/16/18 10/16/18 06:25 06:49 21:42 WBC RBC Hgb Hct MCH RDW Lymph % (Auto) [place] % (Auto) Eos % (Auto) Lymph # [place] # Seg Neutrophils % Seg Neuts % (Manual) Lymphocytes % (Manual) Lymphocytes # (Manual) APTT D-Dimer Heparin Anti-Xa Level POC ABG pH POC ABG pCO2 POC ABG pO2 Sodium Potassium Chloride 107.7 H Carbon Dioxide BUN 53 H Creatinine 2.2 H Glucose 61 L POC Glucose 51 L 153 H Hemoglobin A1c Lactic Acid Calcium Phosphorus Magnesium Alkaline Phosphatase Total Creatine Kinase CK-MB (CK-2) CK-MB (CK-2) Rel Index Troponin T NT-Pro-B Natriuret Pep Serum Total Protein Total Protein Albumin Pzyey-1-Kybjoevid PEP Interpretation LDL Cholesterol Direct HDL Cholesterol PTH Intact Urine Creatinine Urine Total Protein Valproic Acid Crossmatch 10/17/18 10/17/18 10/17/18 05:22 05:22 05:22 WBC RBC Hgb 7.6 L Hct 23.1 L MCH RDW Lymph % (Auto) [place] % (Auto) Eos % (Auto) Lymph # [place] # Seg Neutrophils % Seg Neuts % (Manual) Lymphocytes % (Manual) Lymphocytes # (Manual) APTT D-Dimer Heparin Anti-Xa Level POC ABG pH POC ABG pCO2 POC ABG pO2 Sodium Potassium Chloride Carbon Dioxide BUN 59 H Creatinine 2.2 H Glucose 111 H POC Glucose Hemoglobin A1c Lactic Acid Calcium Phosphorus Magnesium Alkaline Phosphatase Total Creatine Kinase CK-MB (CK-2) CK-MB (CK-2) Rel Index Troponin T NT-Pro-B Natriuret Pep Serum Total Protein Total Protein Albumin Cpkjh-4-Macqftrja PEP Interpretation LDL Cholesterol Direct HDL Cholesterol PTH Intact 152.8 H Urine Creatinine Urine Total Protein Valproic Acid Crossmatch 10/17/18 10/17/18 10/18/18 12:17 21:32 06:36 WBC RBC Hgb Hct MCH RDW Lymph % (Auto) [place] % (Auto) Eos % (Auto) Lymph # [place] # Seg Neutrophils % Seg Neuts % (Manual) Lymphocytes % (Manual) Lymphocytes # (Manual) APTT D-Dimer Heparin Anti-Xa Level POC ABG pH POC ABG pCO2 POC ABG pO2 Sodium Potassium Chloride Carbon Dioxide BUN Creatinine Glucose POC Glucose 130 H 402 H 217 H Hemoglobin A1c Lactic Acid Calcium Phosphorus Magnesium Alkaline Phosphatase Total Creatine Kinase CK-MB (CK-2) CK-MB (CK-2) Rel Index Troponin T NT-Pro-B Natriuret Pep Serum Total Protein Total Protein Albumin Rytke-8-Axhzrumqm PEP Interpretation LDL Cholesterol Direct HDL Cholesterol PTH Intact Urine Creatinine Urine Total Protein Valproic Acid Crossmatch 10/18/18 10/18/18 10/18/18 08:19 12:24 18:30 WBC RBC Hgb Hct MCH RDW Lymph % (Auto) [place] % (Auto) Eos % (Auto) Lymph # [place] # Seg Neutrophils % Seg Neuts % (Manual) Lymphocytes % (Manual) Lymphocytes # (Manual) APTT D-Dimer Heparin Anti-Xa Level POC ABG pH POC ABG pCO2 POC ABG pO2 Sodium Potassium 5.6 H Chloride 107.3 H Carbon Dioxide BUN 62 H Creatinine 2.3 H Glucose 201 H POC Glucose 159 H 136 H Hemoglobin A1c Lactic Acid Calcium Phosphorus Magnesium Alkaline Phosphatase Total Creatine Kinase CK-MB (CK-2) CK-MB (CK-2) Rel Index Troponin T NT-Pro-B Natriuret Pep Serum Total Protein Total Protein Albumin Fpwyj-9-Zejndzdlr PEP Interpretation LDL Cholesterol Direct HDL Cholesterol PTH Intact Urine Creatinine Urine Total Protein Valproic Acid Crossmatch 10/19/18 10/19/18 10/19/18 04:53 04:53 11:33 WBC RBC 2.74 L Hgb 7.5 L Hct 23.0 L MCH 27 L RDW 17.9 H Lymph % (Auto) 11.3 L [place] % (Auto) 14.5 H Eos % (Auto) Lymph # 1.0 L [place] # 1.2 H Seg Neutrophils % 71.4 H Seg Neuts % (Manual) Lymphocytes % (Manual) Lymphocytes # (Manual) APTT D-Dimer Heparin Anti-Xa Level POC ABG pH POC ABG pCO2 POC ABG pO2 Sodium Potassium Chloride Carbon Dioxide 33 H BUN 33 H Creatinine Glucose 52 L POC Glucose 148 H Hemoglobin A1c Lactic Acid Calcium Phosphorus Magnesium Alkaline Phosphatase Total Creatine Kinase CK-MB (CK-2) CK-MB (CK-2) Rel Index Troponin T NT-Pro-B Natriuret Pep Serum Total Protein Total Protein Albumin Hmyis-7-Ifytoxblt PEP Interpretation LDL Cholesterol Direct HDL Cholesterol PTH Intact Urine Creatinine Urine Total Protein Valproic Acid Crossmatch 10/19/18 10/20/18 10/20/18 21:10 05:30 18:14 WBC RBC Hgb Hct MCH RDW Lymph % (Auto) [place] % (Auto) Eos % (Auto) Lymph # [place] # Seg Neutrophils % Seg Neuts % (Manual) Lymphocytes % (Manual) Lymphocytes # (Manual) APTT D-Dimer Heparin Anti-Xa Level POC ABG pH POC ABG pCO2 POC ABG pO2 Sodium Potassium 5.1 H Chloride Carbon Dioxide 31 H BUN 40 H Creatinine 1.6 H Glucose POC Glucose 132 H 114 H Hemoglobin A1c Lactic Acid Calcium Phosphorus Magnesium Alkaline Phosphatase Total Creatine Kinase CK-MB (CK-2) CK-MB (CK-2) Rel Index Troponin T NT-Pro-B Natriuret Pep Serum Total Protein Total Protein Albumin Xqfpa-6-Fvdsebqgz PEP Interpretation LDL Cholesterol Direct HDL Cholesterol PTH Intact Urine Creatinine Urine Total Protein Valproic Acid Crossmatch 10/20/18 10/21/18 10/21/18 20:57 06:26 06:26 WBC RBC 2.76 L Hgb 7.7 L Hct 23.1 L MCH RDW 18.2 H Lymph % (Auto) [place] % (Auto) Eos % (Auto) Lymph # [place] # Seg Neutrophils % Seg Neuts % (Manual) 79.0 H Lymphocytes % (Manual) 9.0 L Lymphocytes # (Manual) 0.7 L APTT D-Dimer Heparin Anti-Xa Level POC ABG pH POC ABG pCO2 POC ABG pO2 Sodium 146 H Potassium Chloride Carbon Dioxide 31 H BUN 41 H Creatinine 1.6 H Glucose POC Glucose 196 H Hemoglobin A1c Lactic Acid Calcium Phosphorus 4.70 H Magnesium Alkaline Phosphatase Total Creatine Kinase CK-MB (CK-2) CK-MB (CK-2) Rel Index Troponin T NT-Pro-B Natriuret Pep Serum Total Protein Total Protein Albumin Lbkgp-9-Xbyomdfth PEP Interpretation LDL Cholesterol Direct HDL Cholesterol PTH Intact Urine Creatinine Urine Total Protein Valproic Acid Crossmatch 10/21/18 10/21/18 10/21/18 06:26 08:52 17:00 WBC RBC Hgb Hct MCH RDW Lymph % (Auto) [place] % (Auto) Eos % (Auto) Lymph # [place] # Seg Neutrophils % Seg Neuts % (Manual) Lymphocytes % (Manual) Lymphocytes # (Manual) APTT D-Dimer Heparin Anti-Xa Level POC ABG pH POC ABG pCO2 POC ABG pO2 Sodium Potassium Chloride Carbon Dioxide BUN Creatinine Glucose POC Glucose 172 H Hemoglobin A1c Lactic Acid Calcium Phosphorus Magnesium Alkaline Phosphatase 258 H Total Creatine Kinase CK-MB (CK-2) CK-MB (CK-2) Rel Index Troponin T NT-Pro-B Natriuret Pep Serum Total Protein Total Protein Albumin Rvfqw-8-Ntqfhljfj PEP Interpretation LDL Cholesterol Direct HDL Cholesterol PTH Intact Urine Creatinine Urine Total Protein Valproic Acid 46.4 L Crossmatch 10/21/18 10/22/18 10/22/18 23:37 05:25 05:25 WBC RBC 2.17 L Hgb 6.1 L Hct 20.7 L MCH RDW 18.2 H Lymph % (Auto) [place] % (Auto) 14.8 H Eos % (Auto) Lymph # [place] # 1.2 H Seg Neutrophils % Seg Neuts % (Manual) Lymphocytes % (Manual) Lymphocytes # (Manual) APTT D-Dimer Heparin Anti-Xa Level POC ABG pH POC ABG pCO2 POC ABG pO2 Sodium Potassium Chloride Carbon Dioxide 31 H BUN 45 H Creatinine 1.7 H Glucose 143 H POC Glucose 186 H Hemoglobin A1c Lactic Acid Calcium 8.3 L Phosphorus Magnesium Alkaline Phosphatase Total Creatine Kinase CK-MB (CK-2) CK-MB (CK-2) Rel Index Troponin T NT-Pro-B Natriuret Pep Serum Total Protein Total Protein Albumin Uliht-8-Ymuwlhggl PEP Interpretation LDL Cholesterol Direct HDL Cholesterol PTH Intact Urine Creatinine Urine Total Protein Valproic Acid Crossmatch 10/22/18 10/22/18 10:31 12:27 WBC RBC Hgb Hct MCH RDW Lymph % (Auto) [place] % (Auto) Eos % (Auto) Lymph # [place] # Seg Neutrophils % Seg Neuts % (Manual) Lymphocytes % (Manual) Lymphocytes # (Manual) APTT D-Dimer Heparin Anti-Xa Level POC ABG pH POC ABG pCO2 POC ABG pO2 Sodium Potassium Chloride Carbon Dioxide BUN Creatinine Glucose POC Glucose 198 H Hemoglobin A1c Lactic Acid Calcium Phosphorus Magnesium Alkaline Phosphatase Total Creatine Kinase CK-MB (CK-2) CK-MB (CK-2) Rel Index Troponin T NT-Pro-B Natriuret Pep Serum Total Protein Total Protein Albumin [id number] PEP Interpretation LDL Cholesterol Direct HDL Cholesterol PTH Intact Urine Creatinine Urine Total Protein Valproic Acid Crossmatch See Detail Allied health notes reviewed: nursing
[2018-10-22] MEDS: ZAROXOLYN PO SCH (17:37)
[2018-10-22] MEDS: PRAVACHOL PO SCH (22:57)
[2018-10-22] MEDS: RisperDAL PO SCH (22:58)
[2018-10-23] MEDS: PERCOCET 5/325 PO PRN ×3 (00:40→23:00)
[2018-10-23] MEDS: HEPARIN SUB-Q SCH ×3 (05:39→22:47)
[2018-10-23] MEDS: HumuLIN R SUB-Q SCH ×4 (09:36→22:53)
[2018-10-23] MEDS: ASPIRIN PO SCH (09:37)
[2018-10-23] MEDS: LASIX PO SCH ×2 (09:37→22:44)
[2018-10-23] MEDS: COREG PO SCH ×2 (09:37→22:44)
[2018-10-23] MEDS: NEURONTIN PO SCH (09:37)
[2018-10-23] MEDS: PEPCID PO SCH (09:37)
[2018-10-23] MEDS: SODIUM CHLORIDE FLUSH SYRINGE 10 ML IV SCH ×2 (09:38→22:45)
[2018-10-23] MEDS: FEOSOL PO SCH (09:38)
[2018-10-23 09:48] LABS: Hematocrit 25.7 % (35.5-45.6); Hemoglobin 8.4 gm/dl (11.8-15.2); Mean Corpuscular HGB Conc 33 % (32-34); Mean Corpuscular Volume 86 fl (84-94); Platelet Count 190 K/mm3 (140-440); Red Blood Count 2.99 M/mm3 (3.65-5.03); Red Cell Distribution Width 17.9 % (13.2-15.2)
[2018-10-23 10:04] LABS: Calcium 8.6 mg/dL (8.4-10.2)
--- NOTE | 2018-10-23 11:15 | Progress Note ---
Assessment and Plan 1. Acute kidney injury: MAXIMO likely Vasomotor / hemodynamic mediated in the setting of hypotension. Patient was started on hemodialysis on 10/11/2018 due to continued decline in the Renal function and hyperkalemia. He was last dialyzed on 10/18/18. Likely CKD stage 3, creatinine level appears stable. Monitor renal function. 2. FEN: Volume overload, improved. S/p multiple sessions of Isolated UF. Continue Lasix and Metolazone. Hyperkalemia, Kayexalate three times a week. Metabolic alkalosis, Diamox if needed. 3. CHF exacerbation: Was on Dobutamine drip. 4. Hypotension: BP is better. 5. : Miranda catheter was removed and patient is able to void without any difficulty. 6. Anemia: Secondary to bleeding from the hemodialysis catheter site. S/p 2 units of PRBC yesterday. Monitor. Subjective Date of service: 10/23/18 Principal diagnosis: Severe Sepsis with Shock; Acute encephalopathy; MAXIMO; Diabetes II; CMOP Interval history: Patient was seen and examined at the bedside. Objective - Vital Signs Vital signs: Vital Signs - 12hr 10/22/18 10/23/18 10/23/18 23:36 00:40 04:51 Temperature 98.2 F 98.3 F Pulse Rate 82 76 Respiratory 18 20 17 Rate Blood Pressure 114/73 144/75 O2 Sat by Pulse 95 98 Oximetry 10/23/18 07:42 Temperature 98.5 F Pulse Rate 73 Respiratory 20 Rate Blood Pressure 152/84 O2 Sat by Pulse 97 Oximetry - General Appearance General appearance: well-developed, well-nourished, appears stated age, other (not in distress) EENT: ATNC, PERRL, hearing intact, vision intact Neck: supple Respiratory: Present: Clear to Ascultation Cardiology: regular, S1S2, no murmurs Gastrointestinal: normoactive bowel sounds, no tenderness, no distended Integumentary: other (left foot dressing) Neurologic: no focal deficit, no asterixis, alert and oriented x3 Musculoskeletal: other (trace LE edema) - Lab 10/23/18 09:07 10/23/18 09:07 Most recent lab results Calcium 8.6 mg/dL (8.4-10.2) 10/23/18 09:07 Phosphorus 4.70 mg/dL (2.5-4.5) H 10/21/18 06:26 Magnesium 2.20 mg/dL (1.7-2.3) 10/21/18 06:26 Urine Creatinine 118.6 mg/dL (0.1-20.0) H 10/10/18 22:30 Urine Sodium 35 mmol/L 10/10/18 22:30 Urine Total Protein 152 mg/dL (5-11.8) H 10/10/18 22:30 Medications & Allergies - Medications Allergies/Adverse Reactions: Allergies No Known Allergies Allergy (Unverified 10/09/18 10:44) Home Medications: Home Medications Medication Instructions Recorded Confirmed Last Taken Type Carvedilol [Coreg] 3.125 mg PO BID 10/09/18 10/09/[address] [DepaKOTE DR] 500 mg PO BID 10/09/18 10/09/18 Unknown History Ferrous Sulfate [Feosol] 325 mg PO QDAY 10/09/18 10/09/18 Unknown History Furosemide [Lasix] 80 mg PO DAILY 10/09/18 10/09/18 Unknown History Gabapentin [Neurontin] 300 mg PO Q8HR 10/09/18 10/09/18 Unknown History ISOSORBIDE MONOnitrate [Imdur ER] 30 mg PO DAILY 10/09/18 10/09/18 Unknown History Insulin Glargine,Hum.rec.anlog 40 units SQ QHS 10/09/18 10/09/18 Unknown History [Lantus] Magnesium Oxide [Mag-Ox] 400 mg PO DAILY 10/09/18 10/09/18 Unknown History Simvastatin (Nf) [Zocor TAB] 20 mg PO QHS 10/09/18 10/09/18 Unknown History Sulfamethoxazole/Trimethoprim 1 each PO BID 10/09/18 10/09/18 Unknown History [Bactrim DS TAB] glipiZIDE [Glipizide] 10 mg PO DAILY 10/09/18 10/09/18 Unknown History hydrALAZINE [Apresoline TAB] 100 mg PO BID 10/09/18 10/09/18 Unknown History risperiDONE [RisperDAL] 1 mg PO QHS 10/09/18 10/09/18 Unknown History Active Medications: Generic Name Dose Route Start Last Admin Trade Name Freq PRN Reason Stop Dose Admin Albumin Human 25 gm 10/11/18 09:35 Alburx 25% (Albumin) IV JUDE PRN Hypotension Aspirin 325 mg 10/10/18 10:00 10/23/18 09:37 Aspirin PO 325 mg QDAY JAMIL Administration Carvedilol 6.25 mg 10/14/18 22:00 10/23/18 09:37 Coreg PO 6.25 mg BID JAMIL Administration Dextrose 50 ml 10/10/18 11:03 10/16/18 07:14 D50w (25gm) Syringe IV 50 ml PRN PRN Administration Hypoglycemia Famotidine 20 mg 10/10/18 12:00 10/23/18 09:37 Pepcid PO 20 mg DAILY JAMIL Administration Ferrous Sulfate 325 mg 10/10/18 10:00 10/23/18 09:38 Feosol PO 325 mg QDAY JAMIL Administration Furosemide 80 mg 10/23/18 10:00 10/23/18 09:37 Lasix PO 80 mg BID JAMIL Administration Gabapentin 300 mg 10/15/18 10:00 10/23/18 09:37 Neurontin PO 300 mg DAILY JAMIL Administration Heparin Sodium (Porcine) 5,000 unit 10/11/18 15:00 10/23/18 05:39 Heparin SUB-Q 5,000 unit Q8HR JAMIL Administration Hydralazine HCl 20 mg 10/13/18 18:43 10/21/18 09:35 Apresoline IV 20 mg Q4HR PRN Administration Increased Blood Pressure Sodium Chloride 100 mls @ 999 mls/hr 10/19/18 14:59 Nacl 0.9% IV JUDE PRN Hypotension Insulin Human Regular 0 units 10/10/18 11:30 10/23/18 09:36 Humulin R SUB-Q 3 units ACHS JAMIL Administration Protocol Magnesium Hydroxide 30 ml 10/17/18 14:28 10/19/18 10:58 Milk Of Magnesia PO 30 ml QDAY PRN Administration Constipation Metolazone 5 mg 10/20/18 17:30 10/22/18 17:37 Zaroxolyn PO 5 mg DAILY@1730 JAMIL Administration Oxycodone/Acetaminophen 1 tab 10/19/18 10:18 10/23/18 00:40 Percocet 5/325 PO 1 tab Q8H PRN Administration Pain, Moderate (4-6) Pravastatin Sodium 40 mg 10/09/18 22:00 10/22/18 22:57 Pravachol PO 40 mg QHS JAMIL Administration Risperidone 1 mg 10/09/18 22:00 10/22/18 22:58 Risperdal PO 1 mg QHS JAIML Administration Sodium Chloride 10 ml 10/09/18 13:00 10/23/18 09:38 Sodium Chloride Flush Syringe 10 Ml IV 10 ml BID JAMIL Administration Sodium Chloride 10 ml 10/09/18 13:00 Sodium Chloride Flush Syringe 10 Ml IV PRN PRN LINE FLUSH Sodium Polystyrene Sulfonate 30 gm 10/21/18 14:00 10/21/18 13:48 Kionex PO 30 gm MoWeFr JAMIL Administration
[2018-10-23] MEDS: KIONEX PO SCH (13:38)
--- NOTE | 2018-10-23 13:45 | Progress Note ---
Assessment and Plan Assessment and plan: -- Anemia: Chronic disease ;transfused 2 unit PRBC Patient's hemoglobin improved to 7.5, Closely monitor H&H --Altered mental status/Acute encephalopathy ; present on admission head CT with no acute process, baseline --Bilateral moderate pleural effusion; Spontaneous improvement of right pleural effusion from 300 mL- 31 mL Left pleural effusion decreased from 421 mL-112 mL No indication for thoracentesis, continue hemodialysis --MAXIMO / hyperkalemia : HD per nephro --Hypotension- s/p vasopressor , currently hypertensive. --NSTEMI type II- s/p heparin drip, obtained 2d echo, cardiology evaluated and signed off Outpatient follow-up for further evaluation and management --Acute on chronic systolic CHF: EF 35-40%, cont aspirin/statin, monitor daily wt, ins/os, restrict fluid --Sinus bradycardia -resolved, avoid beta blockers --Anemia, chronic kidney disease; closely monitor --HTN, continue current antihypertensives and when necessary medications --DM, cont SSI, Accu-Cheks, ADA diet, insulin as needed --HLP, cont statin -- h/o psych disorder, supportive care, discussed with psych cleared to d/c home,no need to return to psych facility --Extensive scrotal swelling, ultrasound; thick skin, testis and epididymis normal --DC planning per case management. Discharge planning; per management Patient is stable to be transferred out of telemetry to medical floor History Interval history: Patient seen and examined and medical records reviewed Receive 2 units of PRBC significant improvement of hemoglobin Patient alert awake oriented Vital signs reviewed Hospitalist Physical - Constitutional Vitals: Temp Pulse Resp BP Pulse Ox 98.5 F 73 20 152/84 97 10/23/18 07:42 10/23/18 07:42 10/23/18 13:39 10/23/18 07:42 10/23/18 07:42 General appearance: Present: no acute distress, well-nourished - EENT Eyes: Present: PERRL, EOM intact - Neck Neck: Present: supple, normal ROM - Respiratory Respiratory effort: normal, labored - Cardiovascular Rhythm: regular Heart Sounds: Present: S1 & S2 - Extremities Extremities: no ischemia, No edema - Abdominal General gastrointestinal: soft, non-tender, non-distended, normal bowel sounds - Integumentary Integumentary: Present: clear, warm - Psychiatric Psychiatric: appropriate mood/affect, cooperative - Neurologic Neurologic: CNII-XII intact, moves all extremities Results - Labs CBC & Chem 7: 10/23/18 09:07 10/23/18 09:07 Labs: Laboratory Last Values WBC 11.1 K/mm3 (4.5-11.0) H 10/23/18 09:07 RBC 2.99 M/mm3 (3.65-5.03) L 10/23/18 09:07 Hgb 8.4 gm/dl (11.8-15.2) L 10/23/18 09:07 Hct 25.7 % (35.5-45.6) L 10/23/18 09:07 MCV 86 fl (84-94) 10/23/18 09:07 MCH 28 pg (28-32) 10/23/18 09:07 MCHC 33 % (32-34) 10/23/18 09:07 RDW 17.9 % (13.2-15.2) H 10/23/18 09:07 Plt Count 190 K/mm3 (140-440) 10/23/18 09:07 Lymph % (Auto) 15.4 % (13.4-35.0) 10/22/18 05:25 [place] % (Auto) 14.8 % (0.0-7.3) H 10/22/18 05:25 Eos % (Auto) 2.1 % (0.0-4.3) 10/22/18 05:25 Baso % (Auto) 0.1 % (0.0-1.8) 10/22/18 05:25 Lymph # 1.2 K/mm3 (1.2-5.4) 10/22/18 05:25 [place] # 1.2 K/mm3 (0.0-0.8) H 10/22/18 05:25 Eos # 0.2 K/mm3 (0.0-0.4) 10/22/18 05:25 Baso # 0.0 K/mm3 (0.0-0.1) 10/22/18 05:25 Add Manual Diff Complete 10/21/18 06:26 Total Counted 100 10/21/18 06:26 Seg Neutrophils % 67.6 % (40.0-70.0) 10/22/18 05:25 Seg Neuts % (Manual) 79.0 % (40.0-70.0) H 10/21/18 06:26 Band Neutrophils % 7.0 % 10/21/18 06:26 Lymphocytes % (Manual) 9.0 % (13.4-35.0) L 10/21/18 06:26 Reactive Lymphs % (Man) 0 % 10/21/18 06:26 Monocytes % (Manual) 5.0 % (0.0-7.3) 10/21/18 06:26 Eosinophils % (Manual) 0 % (0.0-4.3) 10/21/18 06:26 Basophils % (Manual) 0 % (0.0-1.8) 10/21/18 06:26 Metamyelocytes % 0 % 10/21/18 06:26 Myelocytes % 0 % 10/21/18 06:26 Promyelocytes % 0 % 10/21/18 06:26 Blast Cells % 0 % 10/21/18 06:26 Nucleated RBC % Not Reportable 10/21/18 06:26 Seg Neutrophils # 5.4 K/mm3 (1.8-7.7) 10/22/18 05:25 Seg Neutrophils # Man 5.8 K/mm3 (1.8-7.7) 10/21/18 06:26 Band Neutrophils # 0.5 K/mm3 10/21/18 06:26 Lymphocytes # (Manual) 0.7 K/mm3 (1.2-5.4) L 10/21/18 06:26 Abs React Lymphs (Man) 0.0 K/mm3 10/21/18 06:26 Monocytes # (Manual) 0.4 K/mm3 (0.0-0.8) 10/21/18 06:26 Eosinophils # (Manual) 0.0 K/mm3 (0.0-0.4) 10/21/18 06:26 Basophils # (Manual) 0.0 K/mm3 (0.0-0.1) 10/21/18 06:26 Metamyelocytes # 0.0 K/mm3 10/21/18 06:26 Myelocytes # 0.0 K/mm3 10/21/18 06:26 Promyelocytes # 0.0 K/mm3 10/21/18 06:26 Blast Cells # 0.0 K/mm3 10/21/18 06:26 WBC Morphology Not Reportable 10/21/18 06:26 Hypersegmented Neuts Not Reportable 10/21/18 06:26 Hyposegmented Neuts Not Reportable 10/21/18 06:26 Hypogranular Neuts Not Reportable 10/21/18 06:26 Smudge Cells Not Reportable 10/21/18 06:26 Toxic Granulation Not Reportable 10/21/18 06:26 Toxic Vacuolation Not Reportable 10/21/18 06:26 Dohle Bodies Not Reportable 10/21/18 06:26 Pelger-Huet Anomaly Not Reportable 10/21/18 06:26 Wong Rods Not Reportable 10/21/18 06:26 Platelet Estimate Not Reportable 10/21/18 06:26 Clumped Platelets Not Reportable 10/21/18 06:26 Plt Clumps, EDTA Not Reportable 10/21/18 06:26 Large Platelets Not Reportable 10/21/18 06:26 Giant Platelets Not Reportable 10/21/18 06:26 Platelet Satelliting Not Reportable 10/21/18 06:26 Plt Morphology Comment Not Reportable 10/21/18 06:26 RBC Morphology Not Reportable 10/21/18 06:26 Dimorphic RBCs Not Reportable 10/21/18 06:26 Polychromasia Not Reportable 10/21/18 06:26 Hypochromasia Not Reportable 10/21/18 06:26 Poikilocytosis 1+ 10/21/18 06:26 Anisocytosis 1+ 10/21/18 06:26 Microcytosis Not Reportable 10/21/18 06:26 Macrocytosis Not Reportable 10/21/18 06:26 Spherocytes Not Reportable 10/21/18 06:26 Pappenheimer Bodies Not Reportable 10/21/18 06:26 Sickle Cells Not Reportable 10/21/18 06:26 Target Cells Not Reportable 10/21/18 06:26 Tear Drop Cells Not Reportable 10/21/18 06:26 Ovalocytes Not Reportable 10/21/18 06:26 Helmet Cells Not Reportable 10/21/18 06:26 Fernandez-Hatton Bodies Not Reportable 10/21/18 06:26 [place] Rings Not Reportable 10/21/18 06:26 Rebekah Cells Not Reportable 10/21/18 06:26 Bite Cells Not Reportable 10/21/18 06:26 Crenated Cell Not Reportable 10/21/18 06:26 Elliptocytes Not Reportable 10/21/18 06:26 Acanthocytes (Spur) Not Reportable 10/21/18 06:26 Rouleaux Not Reportable 10/21/18 06:26 Hemoglobin C Crystals Not Reportable 10/21/18 06:26 Schistocytes Not Reportable 10/21/18 06:26 Malaria parasites Not Reportable 10/21/18 06:26 Domenic Bodies Not Reportable 10/21/18 06:26 Hem Pathologist Commnt No 10/21/18 06:26 PT 14.0 Sec. (12.2-14.9) 10/17/18 Unknown INR 1.04 (0.87-1.13) 10/17/18 Unknown APTT 42.4 Sec. (24.2-36.6) H 10/09/18 14:25 D-Dimer 927.57 ng/mlDDU (0-234) H 10/10/18 13:36 Heparin Anti-Xa Level 0.49 U.I./ml (0.3-0.7) 10/11/18 04:31 POC ABG pH 7.359 (7.35-7.45) 10/15/18 13:21 POC ABG pCO2 48.4 (35-45) H 10/15/18 13:21 POC ABG pO2 77 (80-105) L 10/15/18 13:21 POC ABG HCO3 27.3 10/15/18 13:21 POC ABG Total CO2 29 10/15/18 13:21 POC ABG O2 Sat 95 10/15/18 13:21 POC ABG Base Excess 2 10/15/18 13:21 FiO2 21 % 10/15/18 13:21 Sodium 139 mmol/L (137-145) 10/23/18 09:07 Potassium 5.2 mmol/L (3.6-5.0) H 10/23/18 09:07 Chloride 99.4 mmol/L (98-107) 10/23/18 09:07 Carbon Dioxide 28 mmol/L (22-30) 10/23/18 09:07 Anion Gap 17 mmol/L 10/23/18 09:07 BUN 48 mg/dL (9-20) H 10/23/18 09:07 Creatinine 2.4 mg/dL (0.8-1.5) H 10/23/18 09:07 Estimated GFR 35 ml/min 10/23/18 09:07 BUN/Creatinine Ratio 20 % 10/23/18 09:07 Glucose 247 mg/dL (75-100) H 10/23/18 09:07 POC Glucose 222 (70-105) H 10/23/18 11:37 Hemoglobin A1c 8.2 % (4-6) H 10/10/18 05:00 Lactic Acid 0.60 mmol/L (0.7-2.0) L 10/10/18 13:36 Calcium 8.6 mg/dL (8.4-10.2) 10/23/18 09:07 Phosphorus 4.70 mg/dL (2.5-4.5) H 10/21/18 06:26 Magnesium 2.20 mg/dL (1.7-2.3) 10/21/18 06:26 Total Bilirubin < 0.20 mg/dL (0.1-1.2) 10/11/18 20:45 AST 18 units/L (5-40) 10/21/18 06:26 ALT 29 units/L (7-56) 10/21/18 06:26 Alkaline Phosphatase 258 units/L (35-129) H 10/21/18 06:26 Total Creatine Kinase 481 units/L (55-170) H 10/09/18 11:22 CK-MB (CK-2) 20.5 ng/mL (0.0-4.0) H 10/09/18 11:22 CK-MB (CK-2) Rel Index 4.2 (0-4) H 10/09/18 11:22 Troponin T 0.139 ng/mL (0.00-0.029) H* 10/09/18 20:56 C-Reactive Protein 0.90 mg/dL (0.00-1.30) 10/10/18 13:36 NT-Pro-B Natriuret Pep 2963 pg/mL (0-450) H 10/09/18 11:22 Serum Total Protein 5.6 g/dL (6.1-8.1) L 10/15/18 05:39 Total Protein 6.2 g/dL (6.3-8.2) L 10/11/18 20:45 Albumin 2.5 g/dL (3.8-4.8) L 10/15/18 05:39 Albumin/Globulin Ratio 0.9 % 10/11/18 20:45 Ubaze-0-Tpzliipwb 0.4 g/dL (0.2-0.3) H 10/15/18 05:39 Aajho-8-Lrnfledbw 0.7 g/dL (0.5-0.9) 10/15/18 05:39 Beta Globulins 0.4 g/dL (0.2-0.5) 10/15/18 05:39 Gamma Globulins 1.2 g/dL (0.8-1.7) 10/15/18 05:39 Abnorm Protein Band 1 see below 10/15/18 05:39 PEP Interpretation see below H 10/15/18 05:39 Triglycerides 24 mg/dL (2-149) 10/09/18 11:22 Cholesterol 115 mg/dL (50-199) 10/09/18 11:22 LDL Cholesterol Direct 49 mg/dL (50-130) L 10/09/18 11:22 HDL Cholesterol 73 mg/dL (40-59) H 10/09/18 11:22 Cholesterol/HDL Ratio 1.57 % 10/09/18 11:22 Amylase 50 units/L (27-131) 10/21/18 06:26 Lipase 13 units/L (13-60) 10/21/18 06:26 PTH Intact 152.8 pg/mL (15-65) H 10/17/18 05:22 Urine Color Tamie (Yellow) 10/10/18 22:30 Urine Turbidity Clear (Clear) 10/10/18 22:30 Urine pH 5.0 (5.0-7.0) 10/10/18 22:30 Ur Specific [place] 1.016 (1.003-1.030) 10/10/18 22:30 Urine Protein 100 mg/dl mg/dL (Negative) 10/10/18 22:30 Urine Glucose (UA) 50 mg/dL (Negative) 10/10/18 22:30 Urine Ketones Neg mg/dL (Negative) 10/10/18 22:30 Urine Blood Neg (Negative) 10/10/18 22:30 Urine Nitrite Neg (Negative) 10/10/18 22:30 Urine Bilirubin Neg (Negative) 10/10/18 22:30 Urine Urobilinogen 4.0 mg/dL (<2.0) 10/10/18 22:30 Ur Leukocyte Esterase Tr (Negative) 10/10/18 22:30 Urine WBC (Auto) 2.0 /HPF (0.0-6.0) 10/10/18 22:30 Urine RBC (Auto) 5.0 /HPF (0.0-6.0) 10/10/18 22:30 U Epithel Cells (Auto) < 1.0 /HPF (0-13.0) 10/10/18 22:30 Urine Bacteria (Auto) 1+ /HPF (Negative) 10/10/18 22:30 Hyaline Casts 1 /LPF 10/10/18 22:30 Urine Mucus Few /HPF 10/10/18 22:30 Urine Creatinine 118.6 mg/dL (0.1-20.0) H 10/10/18 22:30 Protein/Creatinin Ratio 1.28 10/10/18 22:30 Urine Sodium 35 mmol/L 10/10/18 22:30 Urine Total Protein 152 mg/dL (5-11.8) H 10/10/18 22:30 Valproic Acid 46.4 ug/mL (50-100) L 10/21/18 08:52 BROWN Screen Negative (Negative) 10/15/18 05:39 Proteinase 3 (PR3) Ab <1.0 AI (<1.0) 10/15/18 05:39 Myeloperoxidase Ab <1.0 AI (<1.0) 10/15/18 05:39 Complement C3 129 mg/dL (82-185) 10/15/18 05:39 Complement C4 34 mg/dL (15-53) 10/15/18 05:39 Hepatitis A IgM Ab Non-reactive (NonReactive) 10/11/18 13:24 Hep Bs Antigen Non-reactive (Negative) 10/11/18 13:24 Hep B Core IgM Ab Non-reactive (NonReactive) 10/11/18 13:24 Hepatitis C Antibody Non-reactive (NonReactive) 10/11/18 13:24 Blood Type AB POSITIVE 10/22/18 10:31 Antibody Screen Negative 10/22/18 10:31 Crossmatch See Detail 10/22/18 10:31 Nutrition/Malnutrition Assess - Dietary Evaluation Nutrition/Malnutrition Findings: Nutrition Notes Start: 10/16/18 16:17 Freq: Status: Active Protocol: Document 10/18/18 18:14 RM (Rec: 10/18/18 18:24 RM [id number]) Nutrition Notes Initial or Follow up Reassessment Current Diagnosis Acute Kidney Injury Diabetes Hypertension Heart Failure Other Pertinent Diagnosis Encephalopathy, R leg diabetic PU, AMS Current Diet Cardiac/Renal/Consistent Carb w/Nepro Butter Pecan BID Labs/Tests K 5.6 Pertinent Medications Lasix Height 6 ft 2 in Weight [address] Body Weight (lbs) 190.0 BMI 33.7 Subjective/Other Information Pt not in room at time of visit. Tech stated that pt ate most of her meals yesterday and drank all of the Nepro yesterday. Tech unsure of how much pt ate today. Percent of energy/protein needs met: 90%/94% Burn Absent Trauma Absent #1 Nutrition Diagnosis Inadequate oral intake As Evidenced by Signs and Symptoms pt meeting 90% of calorie needs and 94% of protein needs Diagnosis Progress(for reassessment Resolved documentation) Is patient on ventilator? No Is Patient Ambulatory and/or Out of Bed No REE-([facility]-confined to bed) [phone] Calculation Used for Recommendations [facility] Additional Notes Protein Needs: 103-134g (1-1. 3g/kg, 103kg adjBW) Fluid Needs: 1ml/kcal Nutrition Intervention Change Diet Order: Continue current Add Supplement/Snack (indicate name/kcal Continue Nepro BID /protein ) Provides kCal: 850 Provides Protein (gm) 38 Goal #1 Meet at least 75% of calorie and protein needs via PO and ONS intakes Anticipated Discharge Needs: Cardiac/Consistent Carb/Renal Follow-Up By: 10/25/18 Additional Comments Follow for PO and ONS intakes
--- NOTE | 2018-10-23 19:01 | Progress Note ---
Assessment and Plan Patient alert, awake. Resting on room air.O2 saturation 96%. No acute respiratory distress. Patients V/Q scan reported intermediate probability for PE. Venous doppler studies of legs reported No DVT. Patient repeat ultrasound of chest reported no significant pleural effusions for thoracentesis. Patient received blood transfusion for Anemia. Todays HGB 8.4.. - Patient Problems (1) CHF (congestive heart failure) Current Visit: Yes Status: Acute Qualifiers: Heart failure type: systolic Heart failure chronicity: acute Qualified Code(s): I50.21 - Acute systolic (congestive) heart failure Plan to address problem: Management as per cardiology. (2) Chest pain Current Visit: Yes Status: Acute Plan to address problem: Management as per cardiology. (3) ACS (acute coronary syndrome) Current Visit: Yes Status: Acute Plan to address problem: Management as per cardiology. (4) ARF (acute renal failure) with tubular necrosis Current Visit: Yes Status: Acute Plan to address problem: Management as per nephrology (5) Encephalopathy Current Visit: Yes Status: Acute Plan to address problem: Management as per primary care. (6) Pleural effusion, right Current Visit: Yes Status: Acute Plan to address problem: Repeat ultrasound of chest reported no significant pleural effusions. So no thoracentesis done. (7) Pulmonary infiltrates on CXR Current Visit: Yes Status: Acute Plan to address problem: Pulmonary infiltrates or atelectasis on the right side. Patient is treated with levaquin. (8) Acute respiratory failure with hypoxia and hypercapnia Current Visit: Yes Status: Acute Plan to address problem: POC ABG pH 7.286 (7.35-7.45) L 10/10/18 12:22 POC ABG pCO2 47.3 (35-45) H 10/10/18 12:22 POC ABG pO2 65 (80-105) L 10/10/18 12:22 POC ABG HCO3 22.5 10/10/18 12:22 POC ABG Total CO2 24 10/10/18 12:22 POC ABG O2 Sat 90 10/10/18 12:22 Recommend O2 2 litres via nasal canula. Brovanna/budesonide aerosol treatments q 12 hours. Albuterol/atrovent aerosol treatments q 6 hours prn for shortness of breath. Repeat ABGs PO2 77 on room air. Continue S/C heparin (9) Anemia Current Visit: Yes Status: Acute Plan to address problem: Patient received blood transfusion. To days HGB is 8.4. No active signs of bleeding. Anemia likely from chronic kidney disease. Subjective Date of service: 10/23/18 Principal diagnosis: Severe Sepsis with Shock; Acute encephalopathy; MAXIMO; Diabetes II; CMOP Interval history: Patient alert, awake. Resting on room air.O2 saturation 96%. No acute respiratory distress. Patients V/Q scan reported intermediate probability for PE. Venous doppler studies of legs reported No DVT. Patient repeat ultrasound of chest reported no significant pleural effusions for thoracentesis. Patient received blood transfusion for Anemia. Todays HGB 8.4. Objective Vital Signs - 12hr 10/23/18 10/23/18 10/23/18 07:42 13:39 13:56 Temperature 98.5 F Pulse Rate 73 Respiratory 20 20 Rate Blood Pressure 152/84 O2 Sat by Pulse 97 98 Oximetry 10/23/18 10/23/18 16:46 17:42 Temperature 97.5 F L 97.7 F Pulse Rate 70 69 Respiratory 18 18 Rate Blood Pressure 149/75 162/82 O2 Sat by Pulse 98 96 Oximetry Constitutional: no acute distress, alert, other (middle aged AAM, normocephalic and atraumatic with normal respiratory effort) Eyes: non-icteric ENT: oropharynx moist Neck: supple, no lymphadenopathy, no JVD Effort: normal Ascultation: Bilateral: diminished breath sounds, rales (bases) Percussion: Bilateral: not dull Cardiovascular: regular rate and rhythm Gastrointestinal: normoactive bowel sounds, soft, non-tender, non-distended Integumentary: rash (feet) Extremities: no cyanosis, pulses normal, no ischemia or petechiae, edema (1+) Neurologic: normal mental status, non-focal exam, pupils equal and round, motor strength normal and, other (sensory numbness to feet) Psychiatric: mood appropriate, affect normal, other CBC and BMP: 10/23/18 09:07 10/23/18 09:07 ABG, PT/INR, D-dimer: ABG POC ABG pH 7.359 (7.35-7.45) 10/15/18 13:21 POC ABG pCO2 48.4 (35-45) H 10/15/18 13:21 POC ABG pO2 77 (80-105) L 10/15/18 13:21 POC ABG HCO3 27.3 10/15/18 13:21 POC ABG Total CO2 29 10/15/18 13:21 POC ABG O2 Sat 95 10/15/18 13:21 PT/INR, D-dimer PT 14.0 Sec. (12.2-14.9) 10/17/18 Unknown INR 1.04 (0.87-1.13) 10/17/18 Unknown D-Dimer 927.57 ng/mlDDU (0-234) H 10/10/18 13:36 Abnormal lab findings: Abnormal Labs 10/09/18 10/09/18 10/09/18 11:22 11:22 11:22 WBC 3.3 L RBC 3.03 L Hgb 8.4 L Hct 25.8 L MCH RDW 18.7 H Lymph % (Auto) [place] % (Auto) 12.1 H Eos % (Auto) 4.6 H Lymph # 0.5 L [place] # Seg Neutrophils % Seg Neuts % (Manual) Lymphocytes % (Manual) Lymphocytes # (Manual) APTT 42.8 H D-Dimer Heparin Anti-Xa Level POC ABG pH POC ABG pCO2 POC ABG pO2 Sodium Potassium 5.2 H Chloride 108.2 H Carbon Dioxide BUN 49 H Creatinine 1.9 H Glucose 153 H POC Glucose Hemoglobin A1c Lactic Acid Calcium Phosphorus Magnesium Alkaline Phosphatase Total Creatine Kinase 481 H CK-MB (CK-2) 20.5 H CK-MB (CK-2) Rel Index 4.2 H Troponin T 0.153 H* NT-Pro-B Natriuret Pep 2963 H Serum Total Protein Total Protein Albumin Gqfgx-3-Irfjpbkje PEP Interpretation LDL Cholesterol Direct 49 L HDL Cholesterol 73 H PTH Intact Urine Creatinine Urine Total Protein Valproic Acid Crossmatch 10/09/18 10/09/18 10/09/18 13:43 14:25 14:25 WBC RBC Hgb 8.2 L Hct 26.2 L MCH RDW Lymph % (Auto) [place] % (Auto) Eos % (Auto) Lymph # [place] # Seg Neutrophils % Seg Neuts % (Manual) Lymphocytes % (Manual) Lymphocytes # (Manual) APTT 42.4 H D-Dimer Heparin Anti-Xa Level POC ABG pH POC ABG pCO2 POC ABG pO2 Sodium Potassium Chloride Carbon Dioxide BUN Creatinine Glucose POC Glucose 167 H Hemoglobin A1c Lactic Acid Calcium Phosphorus Magnesium Alkaline Phosphatase Total Creatine Kinase CK-MB (CK-2) CK-MB (CK-2) Rel Index Troponin T NT-Pro-B Natriuret Pep Serum Total Protein Total Protein Albumin Xxmjy-9-Eilfjjahs PEP Interpretation LDL Cholesterol Direct HDL Cholesterol PTH Intact Urine Creatinine Urine Total Protein Valproic Acid Crossmatch 10/09/18 10/09/18 10/09/18 17:28 20:56 21:23 WBC RBC Hgb Hct MCH RDW Lymph % (Auto) [place] % (Auto) Eos % (Auto) Lymph # [place] # Seg Neutrophils % Seg Neuts % (Manual) Lymphocytes % (Manual) Lymphocytes # (Manual) APTT D-Dimer Heparin Anti-Xa Level 0.28 L POC ABG pH POC ABG pCO2 POC ABG pO2 Sodium Potassium Chloride Carbon Dioxide BUN Creatinine Glucose POC Glucose Hemoglobin A1c Lactic Acid Calcium Phosphorus Magnesium Alkaline Phosphatase Total Creatine Kinase CK-MB (CK-2) CK-MB (CK-2) Rel Index Troponin T 0.136 H* 0.139 H* NT-Pro-B Natriuret Pep Serum Total Protein Total Protein Albumin Desbm-9-Owjwabtbw PEP Interpretation LDL Cholesterol Direct HDL Cholesterol PTH Intact Urine Creatinine Urine Total Protein Valproic Acid Crossmatch 10/10/18 10/10/18 10/10/18 00:10 05:00 05:00 WBC 3.3 L RBC 2.99 L Hgb 8.2 L Hct 25.9 L MCH 27 L RDW 19.2 H Lymph % (Auto) [place] % (Auto) 13.2 H Eos % (Auto) 5.8 H Lymph # 0.5 L [place] # Seg Neutrophils % Seg Neuts % (Manual) Lymphocytes % (Manual) Lymphocytes # (Manual) APTT D-Dimer Heparin Anti-Xa Level POC ABG pH POC ABG pCO2 POC ABG pO2 Sodium Potassium 5.6 H Chloride 110.8 H Carbon Dioxide BUN 50 H Creatinine 2.2 H Glucose 52 L POC Glucose 60 L Hemoglobin A1c Lactic Acid Calcium 8.1 L Phosphorus Magnesium Alkaline Phosphatase Total Creatine Kinase CK-MB (CK-2) CK-MB (CK-2) Rel Index Troponin T NT-Pro-B Natriuret Pep Serum Total Protein Total Protein Albumin Poclu-3-Tdseauwzv PEP Interpretation LDL Cholesterol Direct HDL Cholesterol PTH Intact Urine Creatinine Urine Total Protein Valproic Acid Crossmatch 10/10/18 10/10/18 10/10/18 05:00 06:11 11:30 WBC RBC Hgb Hct MCH RDW Lymph % (Auto) [place] % (Auto) Eos % (Auto) Lymph # [place] # Seg Neutrophils % Seg Neuts % (Manual) Lymphocytes % (Manual) Lymphocytes # (Manual) APTT D-Dimer Heparin Anti-Xa Level POC ABG pH POC ABG pCO2 POC ABG pO2 Sodium Potassium Chloride Carbon Dioxide BUN Creatinine Glucose POC Glucose 57 L 48 L Hemoglobin A1c 8.2 H Lactic Acid Calcium Phosphorus Magnesium Alkaline Phosphatase Total Creatine Kinase CK-MB (CK-2) CK-MB (CK-2) Rel Index Troponin T NT-Pro-B Natriuret Pep Serum Total Protein Total Protein Albumin Mswwf-1-Swtchvsjw PEP Interpretation LDL Cholesterol Direct HDL Cholesterol PTH Intact Urine Creatinine Urine Total Protein Valproic Acid Crossmatch 10/10/18 10/10/18 10/10/18 12:22 13:36 13:36 WBC RBC Hgb Hct MCH RDW Lymph % (Auto) [place] % (Auto) Eos % (Auto) Lymph # [place] # Seg Neutrophils % Seg Neuts % (Manual) Lymphocytes % (Manual) Lymphocytes # (Manual) APTT D-Dimer 927.57 H Heparin Anti-Xa Level POC ABG pH 7.286 L POC ABG pCO2 47.3 H POC ABG pO2 65 L Sodium Potassium Chloride Carbon Dioxide BUN Creatinine Glucose POC Glucose Hemoglobin A1c Lactic Acid 0.60 L Calcium Phosphorus Magnesium Alkaline Phosphatase Total Creatine Kinase CK-MB (CK-2) CK-MB (CK-2) Rel Index Troponin T NT-Pro-B Natriuret Pep Serum Total Protein Total Protein Albumin Farcz-1-Ddkcicmoj PEP Interpretation LDL Cholesterol Direct HDL Cholesterol PTH Intact Urine Creatinine Urine Total Protein Valproic Acid Crossmatch 10/10/18 10/10/18 10/10/18 16:42 21:12 22:30 WBC RBC Hgb Hct MCH RDW Lymph % (Auto) [place] % (Auto) Eos % (Auto) Lymph # [place] # Seg Neutrophils % Seg Neuts % (Manual) Lymphocytes % (Manual) Lymphocytes # (Manual) APTT D-Dimer Heparin Anti-Xa Level POC ABG pH POC ABG pCO2 POC ABG pO2 Sodium Potassium Chloride Carbon Dioxide BUN Creatinine Glucose POC Glucose 122 H 119 H Hemoglobin A1c Lactic Acid Calcium Phosphorus Magnesium Alkaline Phosphatase Total Creatine Kinase CK-MB (CK-2) CK-MB (CK-2) Rel Index Troponin T NT-Pro-B Natriuret Pep Serum Total Protein Total Protein Albumin Wgtvf-4-Mqtkfepef PEP Interpretation LDL Cholesterol Direct HDL Cholesterol PTH Intact Urine Creatinine 118.6 H Urine Total Protein 152 H Valproic Acid Crossmatch 10/11/18 10/11/18 10/11/18 04:31 04:31 13:15 WBC RBC Hgb 8.7 L Hct 27.9 L MCH RDW Lymph % (Auto) [place] % (Auto) Eos % (Auto) Lymph # [place] # Seg Neutrophils % Seg Neuts % (Manual) Lymphocytes % (Manual) Lymphocytes # (Manual) APTT D-Dimer Heparin Anti-Xa Level POC ABG pH POC ABG pCO2 POC ABG pO2 Sodium Potassium 6.6 H* 6.4 H* Chloride Carbon Dioxide BUN 55 H Creatinine 2.9 H Glucose POC Glucose Hemoglobin A1c Lactic Acid Calcium 7.6 L Phosphorus Magnesium Alkaline Phosphatase Total Creatine Kinase CK-MB (CK-2) CK-MB (CK-2) Rel Index Troponin T NT-Pro-B Natriuret Pep Serum Total Protein Total Protein Albumin Qhjbo-4-Xqaybdlfq PEP Interpretation LDL Cholesterol Direct HDL Cholesterol PTH Intact Urine Creatinine Urine Total Protein Valproic Acid Crossmatch 10/11/18 10/11/18 10/12/18 20:45 22:37 04:25 WBC RBC Hgb Hct MCH RDW Lymph % (Auto) [place] % (Auto) Eos % (Auto) Lymph # [place] # Seg Neutrophils % Seg Neuts % (Manual) Lymphocytes % (Manual) Lymphocytes # (Manual) APTT D-Dimer Heparin Anti-Xa Level POC ABG pH POC ABG pCO2 POC ABG pO2 Sodium Potassium Chloride Carbon Dioxide BUN 37 H 38 H Creatinine 2.4 H 2.3 H Glucose POC Glucose 117 H Hemoglobin A1c Lactic Acid Calcium 7.5 L 7.6 L Phosphorus Magnesium Alkaline Phosphatase 261 H Total Creatine Kinase CK-MB (CK-2) CK-MB (CK-2) Rel Index Troponin T NT-Pro-B Natriuret Pep Serum Total Protein Total Protein 6.2 L Albumin 3.0 L Uxdei-2-Edrsvnkqp PEP Interpretation LDL Cholesterol Direct HDL Cholesterol PTH Intact Urine Creatinine Urine Total Protein Valproic Acid Crossmatch 10/12/18 10/12/18 10/13/18 10:02 21:33 03:28 WBC RBC Hgb 7.6 L 7.7 L Hct 24.1 L 23.8 L MCH RDW Lymph % (Auto) [place] % (Auto) Eos % (Auto) Lymph # [place] # Seg Neutrophils % Seg Neuts % (Manual) Lymphocytes % (Manual) Lymphocytes # (Manual) APTT D-Dimer Heparin Anti-Xa Level POC ABG pH POC ABG pCO2 POC ABG pO2 Sodium Potassium Chloride Carbon Dioxide BUN Creatinine Glucose POC Glucose 109 H Hemoglobin A1c Lactic Acid Calcium Phosphorus Magnesium Alkaline Phosphatase Total Creatine Kinase CK-MB (CK-2) CK-MB (CK-2) Rel Index Troponin T NT-Pro-B Natriuret Pep Serum Total Protein Total Protein Albumin Ebebq-7-Dsgadtiqz PEP Interpretation LDL Cholesterol Direct HDL Cholesterol PTH Intact Urine Creatinine Urine Total Protein Valproic Acid Crossmatch 10/13/18 10/13/18 10/13/18 03:28 08:27 15:04 WBC RBC Hgb Hct MCH RDW Lymph % (Auto) [place] % (Auto) Eos % (Auto) Lymph # [place] # Seg Neutrophils % Seg Neuts % (Manual) Lymphocytes % (Manual) Lymphocytes # (Manual) APTT D-Dimer Heparin Anti-Xa Level POC ABG pH POC ABG pCO2 POC ABG pO2 Sodium Potassium Chloride Carbon Dioxide BUN 38 H Creatinine 1.9 H Glucose POC Glucose 136 H 160 H Hemoglobin A1c Lactic Acid Calcium 8.3 L Phosphorus Magnesium Alkaline Phosphatase Total Creatine Kinase CK-MB (CK-2) CK-MB (CK-2) Rel Index Troponin T NT-Pro-B Natriuret Pep Serum Total Protein Total Protein Albumin Nlewt-9-Uablijlbu PEP Interpretation LDL Cholesterol Direct HDL Cholesterol PTH Intact Urine Creatinine Urine Total Protein Valproic Acid Crossmatch 10/13/18 10/13/18 10/14/18 16:53 23:06 06:06 WBC RBC Hgb Hct MCH RDW Lymph % (Auto) [place] % (Auto) Eos % (Auto) Lymph # [place] # Seg Neutrophils % Seg Neuts % (Manual) Lymphocytes % (Manual) Lymphocytes # (Manual) APTT D-Dimer Heparin Anti-Xa Level POC ABG pH POC ABG pCO2 POC ABG pO2 Sodium Potassium Chloride 107.7 H Carbon Dioxide BUN 39 H Creatinine 1.8 H Glucose 116 H POC Glucose 161 H 213 H Hemoglobin A1c Lactic Acid Calcium Phosphorus Magnesium 2.40 H Alkaline Phosphatase Total Creatine Kinase CK-MB (CK-2) CK-MB (CK-2) Rel Index Troponin T NT-Pro-B Natriuret Pep Serum Total Protein Total Protein Albumin Dberx-8-Esfmilxtc PEP Interpretation LDL Cholesterol Direct HDL Cholesterol PTH Intact Urine Creatinine Urine Total Protein Valproic Acid Crossmatch 10/14/18 10/14/18 10/14/18 06:34 11:01 13:50 WBC RBC Hgb 7.8 L Hct 24.8 L MCH RDW Lymph % (Auto) [place] % (Auto) Eos % (Auto) Lymph # [place] # Seg Neutrophils % Seg Neuts % (Manual) Lymphocytes % (Manual) Lymphocytes # (Manual) APTT D-Dimer Heparin Anti-Xa Level POC ABG pH POC ABG pCO2 POC ABG pO2 Sodium Potassium Chloride Carbon Dioxide BUN Creatinine Glucose POC Glucose 118 H 67 L Hemoglobin A1c Lactic Acid Calcium Phosphorus Magnesium Alkaline Phosphatase Total Creatine Kinase CK-MB (CK-2) CK-MB (CK-2) Rel Index Troponin T NT-Pro-B Natriuret Pep Serum Total Protein Total Protein Albumin Pvsrz-7-Vgfqphtbf PEP Interpretation LDL Cholesterol Direct HDL Cholesterol PTH Intact Urine Creatinine Urine Total Protein Valproic Acid Crossmatch 10/14/18 10/15/18 10/15/18 21:37 05:39 05:39 WBC RBC Hgb 7.6 L Hct 23.5 L MCH RDW Lymph % (Auto) [place] % (Auto) Eos % (Auto) Lymph # [place] # Seg Neutrophils % Seg Neuts % (Manual) Lymphocytes % (Manual) Lymphocytes # (Manual) APTT D-Dimer Heparin Anti-Xa Level POC ABG pH POC ABG pCO2 POC ABG pO2 Sodium Potassium Chloride Carbon Dioxide BUN Creatinine Glucose POC Glucose 125 H Hemoglobin A1c Lactic Acid Calcium Phosphorus Magnesium Alkaline Phosphatase Total Creatine Kinase CK-MB (CK-2) CK-MB (CK-2) Rel Index Troponin T NT-Pro-B Natriuret Pep Serum Total Protein 5.6 L Total Protein Albumin 2.5 L Zofpr-3-Kcnkpfxou 0.4 H PEP Interpretation see below H LDL Cholesterol Direct HDL Cholesterol PTH Intact Urine Creatinine Urine Total Protein Valproic Acid Crossmatch 10/15/18 10/15/18 10/15/18 05:39 06:27 07:48 WBC RBC Hgb Hct MCH RDW Lymph % (Auto) [place] % (Auto) Eos % (Auto) Lymph # [place] # Seg Neutrophils % Seg Neuts % (Manual) Lymphocytes % (Manual) Lymphocytes # (Manual) APTT D-Dimer Heparin Anti-Xa Level POC ABG pH POC ABG pCO2 POC ABG pO2 Sodium Potassium Chloride Carbon Dioxide BUN 45 H Creatinine 2.1 H Glucose 59 L POC Glucose 46 L 65 L Hemoglobin A1c Lactic Acid Calcium 8.3 L Phosphorus Magnesium Alkaline Phosphatase Total Creatine Kinase CK-MB (CK-2) CK-MB (CK-2) Rel Index Troponin T NT-Pro-B Natriuret Pep Serum Total Protein Total Protein Albumin Njheb-2-Aslkwfbgc PEP Interpretation LDL Cholesterol Direct HDL Cholesterol PTH Intact Urine Creatinine Urine Total Protein Valproic Acid Crossmatch 10/15/18 10/15/18 10/15/18 13:21 13:24 21:23 WBC RBC Hgb Hct MCH RDW Lymph % (Auto) [place] % (Auto) Eos % (Auto) Lymph # [place] # Seg Neutrophils % Seg Neuts % (Manual) Lymphocytes % (Manual) Lymphocytes # (Manual) APTT D-Dimer Heparin Anti-Xa Level POC ABG pH POC ABG pCO2 48.4 H POC ABG pO2 77 L Sodium Potassium Chloride Carbon Dioxide BUN Creatinine Glucose POC Glucose 106 H 160 H Hemoglobin A1c Lactic Acid Calcium Phosphorus Magnesium Alkaline Phosphatase Total Creatine Kinase CK-MB (CK-2) CK-MB (CK-2) Rel Index Troponin T NT-Pro-B Natriuret Pep Serum Total Protein Total Protein Albumin Ihiei-5-Cnkzopcwn PEP Interpretation LDL Cholesterol Direct HDL Cholesterol PTH Intact Urine Creatinine Urine Total Protein Valproic Acid Crossmatch 10/16/18 10/16/18 10/16/18 06:25 06:49 21:42 WBC RBC Hgb Hct MCH RDW Lymph % (Auto) [place] % (Auto) Eos % (Auto) Lymph # [place] # Seg Neutrophils % Seg Neuts % (Manual) Lymphocytes % (Manual) Lymphocytes # (Manual) APTT D-Dimer Heparin Anti-Xa Level POC ABG pH POC ABG pCO2 POC ABG pO2 Sodium Potassium Chloride 107.7 H Carbon Dioxide BUN 53 H Creatinine 2.2 H Glucose 61 L POC Glucose 51 L 153 H Hemoglobin A1c Lactic Acid Calcium Phosphorus Magnesium Alkaline Phosphatase Total Creatine Kinase CK-MB (CK-2) CK-MB (CK-2) Rel Index Troponin T NT-Pro-B Natriuret Pep Serum Total Protein Total Protein Albumin Bokdf-1-Fbcxsjzxp PEP Interpretation LDL Cholesterol Direct HDL Cholesterol PTH Intact Urine Creatinine Urine Total Protein Valproic Acid Crossmatch 10/17/18 10/17/18 10/17/18 05:22 05:22 05:22 WBC RBC Hgb 7.6 L Hct 23.1 L MCH RDW Lymph % (Auto) [place] % (Auto) Eos % (Auto) Lymph # [place] # Seg Neutrophils % Seg Neuts % (Manual) Lymphocytes % (Manual) Lymphocytes # (Manual) APTT D-Dimer Heparin Anti-Xa Level POC ABG pH POC ABG pCO2 POC ABG pO2 Sodium Potassium Chloride Carbon Dioxide BUN 59 H Creatinine 2.2 H Glucose 111 H POC Glucose Hemoglobin A1c Lactic Acid Calcium Phosphorus Magnesium Alkaline Phosphatase Total Creatine Kinase CK-MB (CK-2) CK-MB (CK-2) Rel Index Troponin T NT-Pro-B Natriuret Pep Serum Total Protein Total Protein Albumin Ejwdr-9-Geuhqqurd PEP Interpretation LDL Cholesterol Direct HDL Cholesterol PTH Intact 152.8 H Urine Creatinine Urine Total Protein Valproic Acid Crossmatch 10/17/18 10/17/18 10/18/18 12:17 21:32 06:36 WBC RBC Hgb Hct MCH RDW Lymph % (Auto) [place] % (Auto) Eos % (Auto) Lymph # [place] # Seg Neutrophils % Seg Neuts % (Manual) Lymphocytes % (Manual) Lymphocytes # (Manual) APTT D-Dimer Heparin Anti-Xa Level POC ABG pH POC ABG pCO2 POC ABG pO2 Sodium Potassium Chloride Carbon Dioxide BUN Creatinine Glucose POC Glucose 130 H 402 H 217 H Hemoglobin A1c Lactic Acid Calcium Phosphorus Magnesium Alkaline Phosphatase Total Creatine Kinase CK-MB (CK-2) CK-MB (CK-2) Rel Index Troponin T NT-Pro-B Natriuret Pep Serum Total Protein Total Protein Albumin Ihkan-6-Obwftmdyy PEP Interpretation LDL Cholesterol Direct HDL Cholesterol PTH Intact Urine Creatinine Urine Total Protein Valproic Acid Crossmatch 10/18/18 10/18/18 10/18/18 08:19 12:24 18:30 WBC RBC Hgb Hct MCH RDW Lymph % (Auto) [place] % (Auto) Eos % (Auto) Lymph # [place] # Seg Neutrophils % Seg Neuts % (Manual) Lymphocytes % (Manual) Lymphocytes # (Manual) APTT D-Dimer Heparin Anti-Xa Level POC ABG pH POC ABG pCO2 POC ABG pO2 Sodium Potassium 5.6 H Chloride 107.3 H Carbon Dioxide BUN 62 H Creatinine 2.3 H Glucose 201 H POC Glucose 159 H 136 H Hemoglobin A1c Lactic Acid Calcium Phosphorus Magnesium Alkaline Phosphatase Total Creatine Kinase CK-MB (CK-2) CK-MB (CK-2) Rel Index Troponin T NT-Pro-B Natriuret Pep Serum Total Protein Total Protein Albumin Pdzcj-8-Lzfwoizct PEP Interpretation LDL Cholesterol Direct HDL Cholesterol PTH Intact Urine Creatinine Urine Total Protein Valproic Acid Crossmatch 10/19/18 10/19/18 10/19/18 04:53 04:53 11:33 WBC RBC 2.74 L Hgb 7.5 L Hct 23.0 L MCH 27 L RDW 17.9 H Lymph % (Auto) 11.3 L [place] % (Auto) 14.5 H Eos % (Auto) Lymph # 1.0 L [place] # 1.2 H Seg Neutrophils % 71.4 H Seg Neuts % (Manual) Lymphocytes % (Manual) Lymphocytes # (Manual) APTT D-Dimer Heparin Anti-Xa Level POC ABG pH POC ABG pCO2 POC ABG pO2 Sodium Potassium Chloride Carbon Dioxide 33 H BUN 33 H Creatinine Glucose 52 L POC Glucose 148 H Hemoglobin A1c Lactic Acid Calcium Phosphorus Magnesium Alkaline Phosphatase Total Creatine Kinase CK-MB (CK-2) CK-MB (CK-2) Rel Index Troponin T NT-Pro-B Natriuret Pep Serum Total Protein Total Protein Albumin Sfwqv-5-Nziomjpip PEP Interpretation LDL Cholesterol Direct HDL Cholesterol PTH Intact Urine Creatinine Urine Total Protein Valproic Acid Crossmatch 10/19/18 10/20/18 10/20/18 21:10 05:30 18:14 WBC RBC Hgb Hct MCH RDW Lymph % (Auto) [place] % (Auto) Eos % (Auto) Lymph # [place] # Seg Neutrophils % Seg Neuts % (Manual) Lymphocytes % (Manual) Lymphocytes # (Manual) APTT D-Dimer Heparin Anti-Xa Level POC ABG pH POC ABG pCO2 POC ABG pO2 Sodium Potassium 5.1 H Chloride Carbon Dioxide 31 H BUN 40 H Creatinine 1.6 H Glucose POC Glucose 132 H 114 H Hemoglobin A1c Lactic Acid Calcium Phosphorus Magnesium Alkaline Phosphatase Total Creatine Kinase CK-MB (CK-2) CK-MB (CK-2) Rel Index Troponin T NT-Pro-B Natriuret Pep Serum Total Protein Total Protein Albumin Zzxfr-9-Rxbmugpxo PEP Interpretation LDL Cholesterol Direct HDL Cholesterol PTH Intact Urine Creatinine Urine Total Protein Valproic Acid Crossmatch 10/20/18 10/21/18 10/21/18 20:57 06:26 06:26 WBC RBC 2.76 L Hgb 7.7 L Hct 23.1 L MCH RDW 18.2 H Lymph % (Auto) [place] % (Auto) Eos % (Auto) Lymph # [place] # Seg Neutrophils % Seg Neuts % (Manual) 79.0 H Lymphocytes % (Manual) 9.0 L Lymphocytes # (Manual) 0.7 L APTT D-Dimer Heparin Anti-Xa Level POC ABG pH POC ABG pCO2 POC ABG pO2 Sodium 146 H Potassium Chloride Carbon Dioxide 31 H BUN 41 H Creatinine 1.6 H Glucose POC Glucose 196 H Hemoglobin A1c Lactic Acid Calcium Phosphorus 4.70 H Magnesium Alkaline Phosphatase Total Creatine Kinase CK-MB (CK-2) CK-MB (CK-2) Rel Index Troponin T NT-Pro-B Natriuret Pep Serum Total Protein Total Protein Albumin Akgsu-6-Csdycgonq PEP Interpretation LDL Cholesterol Direct HDL Cholesterol PTH Intact Urine Creatinine Urine Total Protein Valproic Acid Crossmatch 10/21/18 10/21/18 10/21/18 06:26 08:52 17:00 WBC RBC Hgb Hct MCH RDW Lymph % (Auto) [place] % (Auto) Eos % (Auto) Lymph # [place] # Seg Neutrophils % Seg Neuts % (Manual) Lymphocytes % (Manual) Lymphocytes # (Manual) APTT D-Dimer Heparin Anti-Xa Level POC ABG pH POC ABG pCO2 POC ABG pO2 Sodium Potassium Chloride Carbon Dioxide BUN Creatinine Glucose POC Glucose 172 H Hemoglobin A1c Lactic Acid Calcium Phosphorus Magnesium Alkaline Phosphatase 258 H Total Creatine Kinase CK-MB (CK-2) CK-MB (CK-2) Rel Index Troponin T NT-Pro-B Natriuret Pep Serum Total Protein Total Protein Albumin Hylyn-8-Xjgeurdrh PEP Interpretation LDL Cholesterol Direct HDL Cholesterol PTH Intact Urine Creatinine Urine Total Protein Valproic Acid 46.4 L Crossmatch 10/21/18 10/22/18 10/22/18 23:37 05:25 05:25 WBC RBC 2.17 L Hgb 6.1 L Hct 20.7 L MCH RDW 18.2 H Lymph % (Auto) [place] % (Auto) 14.8 H Eos % (Auto) Lymph # [place] # 1.2 H Seg Neutrophils % Seg Neuts % (Manual) Lymphocytes % (Manual) Lymphocytes # (Manual) APTT D-Dimer Heparin Anti-Xa Level POC ABG pH POC ABG pCO2 POC ABG pO2 Sodium Potassium Chloride Carbon Dioxide 31 H BUN 45 H Creatinine 1.7 H Glucose 143 H POC Glucose 186 H Hemoglobin A1c Lactic Acid Calcium 8.3 L Phosphorus Magnesium Alkaline Phosphatase Total Creatine Kinase CK-MB (CK-2) CK-MB (CK-2) Rel Index Troponin T NT-Pro-B Natriuret Pep Serum Total Protein Total Protein Albumin Ktmbu-5-Zviablyhy PEP Interpretation LDL Cholesterol Direct HDL Cholesterol PTH Intact Urine Creatinine Urine Total Protein Valproic Acid Crossmatch 10/22/18 10/22/18 10/22/18 10:31 12:27 17:13 WBC RBC Hgb Hct MCH RDW Lymph % (Auto) [place] % (Auto) Eos % (Auto) Lymph # [place] # Seg Neutrophils % Seg Neuts % (Manual) Lymphocytes % (Manual) Lymphocytes # (Manual) APTT D-Dimer Heparin Anti-Xa Level POC ABG pH POC ABG pCO2 POC ABG pO2 Sodium Potassium Chloride Carbon Dioxide BUN Creatinine Glucose POC Glucose 198 H 137 H Hemoglobin A1c Lactic Acid Calcium Phosphorus Magnesium Alkaline Phosphatase Total Creatine Kinase CK-MB (CK-2) CK-MB (CK-2) Rel Index Troponin T NT-Pro-B Natriuret Pep Serum Total Protein Total Protein Albumin [id number] PEP Interpretation LDL Cholesterol Direct HDL Cholesterol PTH Intact Urine Creatinine Urine Total Protein Valproic Acid Crossmatch See Detail 10/22/18 10/23/18 10/23/18 20:35 06:00 09:07 WBC 11.1 H RBC 2.99 L Hgb 8.4 L Hct 25.7 L MCH RDW 17.9 H Lymph % (Auto) [place] % (Auto) Eos % (Auto) Lymph # [place] # Seg Neutrophils % Seg Neuts % (Manual) Lymphocytes % (Manual) Lymphocytes # (Manual) APTT D-Dimer Heparin Anti-Xa Level POC ABG pH POC ABG pCO2 POC ABG pO2 Sodium Potassium Chloride Carbon Dioxide BUN Creatinine Glucose POC Glucose 196 H 246 H Hemoglobin A1c Lactic Acid Calcium Phosphorus Magnesium Alkaline Phosphatase Total Creatine Kinase CK-MB (CK-2) CK-MB (CK-2) Rel Index Troponin T NT-Pro-B Natriuret Pep Serum Total Protein Total Protein Albumin [id number] PEP Interpretation LDL Cholesterol Direct HDL Cholesterol PTH Intact Urine Creatinine Urine Total Protein Valproic Acid Crossmatch 10/23/18 10/23/18 10/23/18 09:07 11:37 17:16 WBC RBC Hgb Hct MCH RDW Lymph % (Auto) [place] % (Auto) Eos % (Auto) Lymph # [place] # Seg Neutrophils % Seg Neuts % (Manual) Lymphocytes % (Manual) Lymphocytes # (Manual) APTT D-Dimer Heparin Anti-Xa Level POC ABG pH POC ABG pCO2 POC ABG pO2 Sodium Potassium 5.2 H Chloride Carbon Dioxide BUN 48 H Creatinine 2.4 H Glucose 247 H POC Glucose 222 H 196 H Hemoglobin A1c Lactic Acid Calcium Phosphorus Magnesium Alkaline Phosphatase Total Creatine Kinase CK-MB (CK-2) CK-MB (CK-2) Rel Index Troponin T NT-Pro-B Natriuret Pep Serum Total Protein Total Protein Albumin [id number] PEP Interpretation LDL Cholesterol Direct HDL Cholesterol PTH Intact Urine Creatinine Urine Total Protein Valproic Acid Crossmatch Allied health notes reviewed: nursing
--- NOTE | 2018-10-23 20:07 | Progress Note ---
Subjective Date of service: 10/23/18 Principal diagnosis: Severe Sepsis with Shock; Acute encephalopathy; MAXIMO; Diabetes II; CMOP Interval history: Patient was seen and examined at the bedside. Doing ok. Objective - Vital Signs Vital signs: Vital Signs - 12hr 10/23/18 10/23/18 10/23/18 13:39 13:56 16:46 Temperature 97.5 F L Pulse Rate 70 Respiratory 20 18 Rate Blood Pressure 149/75 O2 Sat by Pulse 98 98 Oximetry 10/23/18 17:42 Temperature 97.7 F Pulse Rate 69 Respiratory 18 Rate Blood Pressure 162/82 O2 Sat by Pulse 96 Oximetry - Lab 10/23/18 09:07 10/23/18 09:07 Most recent lab results Calcium 8.6 mg/dL (8.4-10.2) 10/23/18 09:07 Phosphorus 4.70 mg/dL (2.5-4.5) H 10/21/18 06:26 Magnesium 2.20 mg/dL (1.7-2.3) 10/21/18 06:26 Urine Creatinine 118.6 mg/dL (0.1-20.0) H 10/10/18 22:30 Urine Sodium 35 mmol/L 10/10/18 22:30 Urine Total Protein 152 mg/dL (5-11.8) H 10/10/18 22:30 Medications & Allergies - Medications Allergies/Adverse Reactions: Allergies No Known Allergies Allergy (Unverified 10/09/18 10:44) Home Medications: Home Medications Medication Instructions Recorded Confirmed Last Taken Type Carvedilol [Coreg] 3.125 mg PO BID 10/09/18 10/09/18 Unknown History Divalproex [DepNatan PADRON] 500 mg PO BID 10/09/18 10/09/18 Unknown History Ferrous Sulfate [Feosol] 325 mg PO QDAY 10/09/18 10/09/18 Unknown History Furosemide [Lasix] 80 mg PO DAILY 10/09/18 10/09/18 Unknown History Gabapentin [Neurontin] 300 mg PO Q8HR 10/09/18 10/09/18 Unknown History ISOSORBIDE MONOnitrate [Imdur ER] 30 mg PO DAILY 10/09/18 10/09/18 Unknown History Insulin Glargine,Hum.rec.anlog 40 units SQ QHS 10/09/18 10/09/18 Unknown History [Lantus] Magnesium Oxide [Mag-Ox] 400 mg PO DAILY 10/09/18 10/09/18 Unknown History Simvastatin (Nf) [Zocor TAB] 20 mg PO QHS 10/09/18 10/09/18 Unknown History Sulfamethoxazole/Trimethoprim 1 each PO BID 10/09/18 10/09/18 Unknown History [Bactrim DS TAB] glipiZIDE [Glipizide] 10 mg PO DAILY 10/09/18 10/09/18 Unknown History hydrALAZINE [Apresoline TAB] 100 mg PO BID 10/09/18 10/09/18 Unknown History risperiDONE [RisperDAL] 1 mg PO QHS 10/09/18 10/09/18 Unknown History Active Medications: Generic Name Dose Route Start Last Admin Trade Name Freq PRN Reason Stop Dose Admin Albumin Human 25 gm 10/11/18 09:35 Alburx 25% (Albumin) IV JUDE PRN Hypotension Aspirin 325 mg 10/10/18 10:00 10/23/18 09:37 Aspirin PO 325 mg QDAY JAMIL Administration Carvedilol 6.25 mg 10/14/18 22:00 10/23/18 09:37 Coreg PO 6.25 mg BID JAMIL Administration Dextrose 50 ml 10/10/18 11:03 10/16/18 07:14 D50w (25gm) Syringe IV 50 ml PRN PRN Administration Hypoglycemia Famotidine 20 mg 10/10/18 12:00 10/23/18 09:37 Pepcid PO 20 mg DAILY JAMIL Administration Ferrous Sulfate 325 mg 10/10/18 10:00 10/23/18 09:38 Feosol PO 325 mg QDAY JAMIL Administration Furosemide 80 mg 10/23/18 10:00 10/23/18 09:37 Lasix PO 80 mg BID JAMIL Administration Gabapentin 300 mg 10/15/18 10:00 10/23/18 09:37 Neurontin PO 300 mg DAILY JAMIL Administration Heparin Sodium (Porcine) 5,000 unit 10/11/18 15:00 10/23/18 13:28 Heparin SUB-Q 5,000 unit Q8HR JAMIL Administration Hydralazine HCl 20 mg 10/13/18 18:43 10/21/18 09:35 Apresoline IV 20 mg Q4HR PRN Administration Increased Blood Pressure Sodium Chloride 100 mls @ 999 mls/hr 10/19/18 14:59 Nacl 0.9% IV JUDE PRN Hypotension Insulin Human Regular 0 units 10/10/18 11:30 10/23/18 18:37 Humulin R SUB-Q 2 units ACHS JAMIL Administration Protocol Magnesium Hydroxide 30 ml 10/17/18 14:28 10/19/18 10:58 Milk Of Magnesia PO 30 ml QDAY PRN Administration Constipation Metolazone 5 mg 10/20/18 17:30 10/22/18 17:37 Zaroxolyn PO 5 mg DAILY@1730 JAMIL Administration Oxycodone/Acetaminophen 1 tab 10/19/18 10:18 10/23/18 13:39 Percocet 5/325 PO 1 tab Q8H PRN Administration Pain, Moderate (4-6) Pravastatin Sodium 40 mg 10/09/18 22:00 10/22/18 22:57 Pravachol PO 40 mg QHS JAMIL Administration Risperidone 1 mg 10/09/18 22:00 10/22/18 22:58 Risperdal PO 1 mg QHS JAMIL Administration Sodium Chloride 10 ml 10/09/18 13:00 10/23/18 09:38 Sodium Chloride Flush Syringe 10 Ml IV 10 ml BID JAMIL Administration Sodium Chloride 10 ml 10/09/18 13:00 Sodium Chloride Flush Syringe 10 Ml IV PRN PRN LINE FLUSH Sodium Polystyrene Sulfonate 30 gm 10/21/18 14:00 10/23/18 13:38 Kionex PO 30 gm MoWeFr JAMIL Administration
[2018-10-23] MEDS: PRAVACHOL PO SCH (22:44)
[2018-10-23] MEDS: RisperDAL PO SCH (22:45)
[2018-10-23] MEDS: ZAROXOLYN PO SCH (22:55)
[2018-10-24] MEDS: APRESOLINE IV PRN (01:11)
[2018-10-24] MEDS ORDERED: HALDOL IM NR (02:08)
[2018-10-24 06:00] LABS: Hematocrit 23.4 % (35.5-45.6); Hemoglobin 7.7 gm/dl (11.8-15.2); Mean Corpuscular HGB Conc 33 % (32-34); Mean Corpuscular Volume 87 fl (84-94); Platelet Count 194 K/mm3 (140-440); Red Blood Count 2.69 M/mm3 (3.65-5.03); Red Cell Distribution Width 18.3 % (13.2-15.2)
[2018-10-24] MEDS: HEPARIN SUB-Q SCH ×3 (06:11→21:39)
[2018-10-24 06:16] LABS: Calcium 8.3 mg/dL (8.4-10.2)
[2018-10-24 08:27] LABS: Basophils % (Manual) 0 % (0.0-1.8); Myelocytes # (Manual) 0.2 K/mm3; Total Cells Counted 100
[2018-10-24 08:29] LABS: Anisocytosis 1+
[2018-10-24 08:30] LABS: Platelet Estimate Consistent w Auto
[2018-10-24] MEDS: HumuLIN R SUB-Q SCH ×4 (09:16→22:00)
--- NOTE | 2018-10-24 10:06 | Progress Note ---
Assessment and Plan 1. Acute kidney injury: MAXIMO likely Vasomotor / hemodynamic mediated in the setting of hypotension. Patient was started on hemodialysis on 10/11/2018 due to continued decline in the Renal function and hyperkalemia. He was last dialyzed on 10/18/18. Likely CKD stage 3, creatinine level fluctuating. Monitor renal function and ARTISTIC DIRECTOR needs. 2. FEN: Volume overload, improved. S/p multiple sessions of Isolated UF. Continue Lasix and Metolazone. Hyperkalemia, Kayexalate three times a week. Metabolic alkalosis, Diamox if needed. 3. CHF exacerbation: Was on Dobutamine drip. 4. Hypotension: BP is better. 5. Anemia: Secondary to bleeding from the hemodialysis catheter site. S/p 2 units of PRBC on 10/22. Monitor. Subjective Date of service: 10/24/18 Principal diagnosis: Severe Sepsis with Shock; Acute encephalopathy; MAXIMO; Diabetes II; CMOP Interval history: Patient was seen and examined at the bedside. Patient c/o diarrhea. Objective - Vital Signs Vital signs: Vital Signs - 12hr 10/23/18 10/23/18 10/24/18 22:44 23:54 01:11 Temperature 98.9 F Pulse Rate 75 77 77 Respiratory 20 Rate Blood Pressure 139/86 170/103 170/103 O2 Sat by Pulse 99 Oximetry 10/24/18 06:30 Temperature 97.7 F Pulse Rate 84 Respiratory 18 Rate Blood Pressure 124/67 O2 Sat by Pulse 96 Oximetry - General Appearance General appearance: well-developed, well-nourished, appears stated age, other (not in distress) EENT: ATNC, PERRL, hearing intact, vision intact Neck: supple Respiratory: Present: Clear to Ascultation Cardiology: regular, S1S2, no murmurs Gastrointestinal: normoactive bowel sounds, no tenderness, no distended Integumentary: other (left foot dressing) Neurologic: no asterixis, alert and oriented x3, other (alert, generalized muscle weakness) Musculoskeletal: other (no edema) - Lab 10/24/18 04:13 10/24/18 04:13 Most recent lab results Calcium 8.3 mg/dL (8.4-10.2) L 10/24/18 04:13 Phosphorus 4.70 mg/dL (2.5-4.5) H 10/21/18 06:26 Magnesium 2.20 mg/dL (1.7-2.3) 10/21/18 06:26 Urine Creatinine 118.6 mg/dL (0.1-20.0) H 10/10/18 22:30 Urine Sodium 35 mmol/L 10/10/18 22:30 Urine Total Protein 152 mg/dL (5-11.8) H 10/10/18 22:30 Medications & Allergies - Medications Allergies/Adverse Reactions: Allergies No Known Allergies Allergy (Unverified 10/09/18 10:44) Home Medications: Home Medications Medication Instructions Recorded Confirmed Last Taken Type Carvedilol [Coreg] 3.125 mg PO BID 10/09/18 10/09/[address] [DepaKOTE DR] 500 mg PO BID 10/09/18 10/09/18 Unknown History Ferrous Sulfate [Feosol] 325 mg PO QDAY 10/09/18 10/09/18 Unknown History Furosemide [Lasix] 80 mg PO DAILY 10/09/18 10/09/18 Unknown History Gabapentin [Neurontin] 300 mg PO Q8HR 10/09/18 10/09/18 Unknown History ISOSORBIDE MONOnitrate [Imdur ER] 30 mg PO DAILY 10/09/18 10/09/18 Unknown History Insulin Glargine,Hum.rec.anlog 40 units SQ QHS 10/09/18 10/09/18 Unknown History [Lantus] Magnesium Oxide [Mag-Ox] 400 mg PO DAILY 10/09/18 10/09/18 Unknown History Simvastatin (Nf) [Zocor TAB] 20 mg PO QHS 10/09/18 10/09/18 Unknown History Sulfamethoxazole/Trimethoprim 1 each PO BID 10/09/18 10/09/18 Unknown History [Bactrim DS TAB] glipiZIDE [Glipizide] 10 mg PO DAILY 10/09/18 10/09/18 Unknown History hydrALAZINE [Apresoline TAB] 100 mg PO BID 10/09/18 10/09/18 Unknown History risperiDONE [RisperDAL] 1 mg PO QHS 10/09/18 10/09/18 Unknown History Active Medications: Generic Name Dose Route Start Last Admin Trade Name Freq PRN Reason Stop Dose Admin Albumin Human 25 gm 10/11/18 09:35 Alburx 25% (Albumin) IV JUDE PRN Hypotension Aspirin 325 mg 10/10/18 10:00 10/23/18 09:37 Aspirin PO 325 mg QDAY JAMIL Administration Carvedilol 6.25 mg 10/14/18 22:00 10/23/18 22:44 Coreg PO 6.25 mg BID JAMIL Administration Dextrose 50 ml 10/10/18 11:03 10/16/18 07:14 D50w (25gm) Syringe IV 50 ml PRN PRN Administration Hypoglycemia Famotidine 20 mg 10/10/18 12:00 10/23/18 09:37 Pepcid PO 20 mg DAILY JAMIL Administration Ferrous Sulfate 325 mg 10/10/18 10:00 10/23/18 09:38 Feosol PO 325 mg QDAY JAMIL Administration Furosemide 80 mg 10/23/18 10:00 10/23/18 22:44 Lasix PO 80 mg BID JAMIL Administration Gabapentin 300 mg 10/15/18 10:00 10/23/18 09:37 Neurontin PO 300 mg DAILY JAMIL Administration Heparin Sodium (Porcine) 5,000 unit 10/11/18 15:00 10/24/18 06:11 Heparin SUB-Q 5,000 unit Q8HR JAMIL Administration Hydralazine HCl 20 mg 10/13/18 18:43 10/24/18 01:11 Apresoline IV 20 mg Q4HR PRN Administration Increased Blood Pressure Sodium Chloride 100 mls @ 999 mls/hr 10/19/18 14:59 Nacl 0.9% IV JUDE PRN Hypotension Insulin Human Regular 0 units 10/10/18 11:30 10/24/18 09:16 Humulin R SUB-Q 4 units ACHS JAMIL Administration Protocol Magnesium Hydroxide 30 ml 10/17/18 14:28 10/19/18 10:58 Milk Of Magnesia PO 30 ml QDAY PRN Administration Constipation Metolazone 5 mg 10/23/18 22:00 10/23/18 22:55 Zaroxolyn PO 5 mg DAILY@1730 JAMIL Administration Oxycodone/Acetaminophen 1 tab 10/19/18 10:18 10/23/18 23:00 Percocet 5/325 PO 1 tab Q8H PRN Administration Pain, Moderate (4-6) Pravastatin Sodium 40 mg 10/09/18 22:00 10/23/18 22:44 Pravachol PO 40 mg QHS JAMIL Administration Risperidone 1 mg 10/09/18 22:00 10/23/18 22:45 Risperdal PO 1 mg QHS JAMIL Administration Sodium Chloride 10 ml 10/09/18 13:00 10/23/18 22:45 Sodium Chloride Flush Syringe 10 Ml IV 10 ml BID JAMIL Administration Sodium Chloride 10 ml 10/09/18 13:00 Sodium Chloride Flush Syringe 10 Ml IV PRN PRN LINE FLUSH Sodium Polystyrene Sulfonate 30 gm 10/21/18 14:00 10/23/18 13:38 Kionex PO 30 gm MoWeFr JAMIL Administration
[2018-10-24] MEDS: PEPCID PO SCH (10:14)
[2018-10-24] MEDS: FEOSOL PO SCH (10:14)
[2018-10-24] MEDS: ASPIRIN PO SCH (10:14)
[2018-10-24] MEDS: LASIX PO SCH ×2 (10:14→21:38)
[2018-10-24] MEDS: COREG PO SCH ×2 (10:14→21:39)
[2018-10-24] MEDS: NEURONTIN PO SCH (10:14)
[2018-10-24] MEDS: SODIUM CHLORIDE FLUSH SYRINGE 10 ML IV SCH ×2 (10:15→21:40)
--- NOTE | 2018-10-24 10:33 | Progress Note ---
Assessment and Plan Severe Sepsis syndrome. Shock (cardiogenic versus septic) Acute encephalopathy. Possible seizures. History of diabetes CMOP Leukopenia. Anemia that is normocytic. Acute hypercapnic respiratory acidosis. Hyperkalemia. Acute kidney injury. Non-ST elevation myocardial infarction. Hypoglycemia. Possible peripheral vascular disease. Obesity. - get VQ scan to complete VTE w/up - continue DVT prophylaxis with heparin 5000U sq q8h - lower extremity dopplers negative - azotemia per nephrology; numbers improving - prn suppelemntal oxygen to keep sats > 90% - continue risperdone - PT/OT as tolerated - mobility protocol for pressure ulcer prophylaxis - aspiration precautions - prn bronchodilators with pulmonary hygiene per RT - continue stress ulcer prophylaxis - s/p empiric Antibiotics course (Levaquin) - continue Mobility protocol for pressure ulcer prevention - continue other care per attending / other consultants .... re-evaluate in am & prn FULL CODE STATUS Subjective Date of service: 10/24/18 Principal diagnosis: Severe Sepsis with Shock; Acute encephalopathy; MAXIMO; Diabetes II; CMOP Interval history: Patient is seen today for: Severe Sepsis syndrome; Shock (cardiogenic versus septic); Acute encephalopathy; Possible seizures; History of diabetes; CMOP Seen and examined at bedside; 24hour events reviewed; nursing and respiratory care staff consulted; no adverse overnight events reported to me; resting peacefully in bed; denies acute chest pains or palpitations; still a little "manic"; No N/V/F/C Objective Vital Signs - 12hr 10/23/18 10/23/18 10/24/18 22:44 23:54 01:11 Temperature 98.9 F Pulse Rate 75 77 77 Respiratory 20 Rate Blood Pressure 139/86 170/103 170/103 O2 Sat by Pulse 99 Oximetry 10/24/18 06:30 Temperature 97.7 F Pulse Rate 84 Respiratory 18 Rate Blood Pressure 124/67 O2 Sat by Pulse 96 Oximetry Constitutional: no acute distress, alert, other (middle aged AAM, normocephalic and atraumatic with normal respiratory effort) Eyes: non-icteric ENT: oropharynx moist Neck: supple, no lymphadenopathy, no JVD Effort: normal Ascultation: Bilateral: diminished breath sounds, rhonchi (bases) Percussion: Bilateral: not dull Cardiovascular: regular rate and rhythm Gastrointestinal: normoactive bowel sounds, soft, non-tender, non-distended Integumentary: rash (feet) Extremities: no cyanosis, pulses normal, no ischemia or petechiae, edema (trace to 1+) Neurologic: normal mental status, non-focal exam, pupils equal and round, motor strength normal and, other (sensory numbness to feet) Psychiatric: mood appropriate, affect normal, other CBC and BMP: 10/24/18 04:13 10/24/18 04:13 ABG, PT/INR, D-dimer: ABG POC ABG pH 7.359 (7.35-7.45) 10/15/18 13:21 POC ABG pCO2 48.4 (35-45) H 10/15/18 13:21 POC ABG pO2 77 (80-105) L 10/15/18 13:21 POC ABG HCO3 27.3 10/15/18 13:21 POC ABG Total CO2 29 10/15/18 13:21 POC ABG O2 Sat 95 10/15/18 13:21 PT/INR, D-dimer PT 14.0 Sec. (12.2-14.9) 10/17/18 Unknown INR 1.04 (0.87-1.13) 10/17/18 Unknown D-Dimer 927.57 ng/mlDDU (0-234) H 10/10/18 13:36 Abnormal lab findings: Abnormal Labs 10/09/18 10/09/18 10/09/18 11:22 11:22 11:22 WBC 3.3 L RBC 3.03 L Hgb 8.4 L Hct 25.8 L MCH RDW 18.7 H Lymph % (Auto) Taylor % (Auto) 12.1 H Eos % (Auto) 4.6 H Lymph # 0.5 L Taylor # Seg Neutrophils % Seg Neuts % (Manual) Lymphocytes % (Manual) Lymphocytes # (Manual) APTT 42.8 H D-Dimer Heparin Anti-Xa Level POC ABG pH POC ABG pCO2 POC ABG pO2 Sodium Potassium 5.2 H Chloride 108.2 H Carbon Dioxide BUN 49 H Creatinine 1.9 H Glucose 153 H POC Glucose Hemoglobin A1c Lactic Acid Calcium Phosphorus Magnesium Alkaline Phosphatase Total Creatine Kinase 481 H CK-MB (CK-2) 20.5 H CK-MB (CK-2) Rel Index 4.2 H Troponin T 0.153 H* NT-Pro-B Natriuret Pep 2963 H Serum Total Protein Total Protein Albumin Rokgj-7-Yusjflgdx PEP Interpretation LDL Cholesterol Direct 49 L HDL Cholesterol 73 H PTH Intact Urine Creatinine Urine Total Protein Valproic Acid Crossmatch 10/09/18 10/09/18 10/09/18 13:43 14:25 14:25 WBC RBC Hgb 8.2 L Hct 26.2 L MCH RDW Lymph % (Auto) Taylor % (Auto) Eos % (Auto) Lymph # Taylor # Seg Neutrophils % Seg Neuts % (Manual) Lymphocytes % (Manual) Lymphocytes # (Manual) APTT 42.4 H D-Dimer Heparin Anti-Xa Level POC ABG pH POC ABG pCO2 POC ABG pO2 Sodium Potassium Chloride Carbon Dioxide BUN Creatinine Glucose POC Glucose 167 H Hemoglobin A1c Lactic Acid Calcium Phosphorus Magnesium Alkaline Phosphatase Total Creatine Kinase CK-MB (CK-2) CK-MB (CK-2) Rel Index Troponin T NT-Pro-B Natriuret Pep Serum Total Protein Total Protein Albumin Iptku-5-Mtltgkmyd PEP Interpretation LDL Cholesterol Direct HDL Cholesterol PTH Intact Urine Creatinine Urine Total Protein Valproic Acid Crossmatch 10/09/18 10/09/18 10/09/18 17:28 20:56 21:23 WBC RBC Hgb Hct MCH RDW Lymph % (Auto) Taylor % (Auto) Eos % (Auto) Lymph # Taylor # Seg Neutrophils % Seg Neuts % (Manual) Lymphocytes % (Manual) Lymphocytes # (Manual) APTT D-Dimer Heparin Anti-Xa Level 0.28 L POC ABG pH POC ABG pCO2 POC ABG pO2 Sodium Potassium Chloride Carbon Dioxide BUN Creatinine Glucose POC Glucose Hemoglobin A1c Lactic Acid Calcium Phosphorus Magnesium Alkaline Phosphatase Total Creatine Kinase CK-MB (CK-2) CK-MB (CK-2) Rel Index Troponin T 0.136 H* 0.139 H* NT-Pro-B Natriuret Pep Serum Total Protein Total Protein Albumin Uspko-6-Goejzipyd PEP Interpretation LDL Cholesterol Direct HDL Cholesterol PTH Intact Urine Creatinine Urine Total Protein Valproic Acid Crossmatch 10/10/18 10/10/18 10/10/18 00:10 05:00 05:00 WBC 3.3 L RBC 2.99 L Hgb 8.2 L Hct 25.9 L MCH 27 L RDW 19.2 H Lymph % (Auto) Taylor % (Auto) 13.2 H Eos % (Auto) 5.8 H Lymph # 0.5 L Taylor # Seg Neutrophils % Seg Neuts % (Manual) Lymphocytes % (Manual) Lymphocytes # (Manual) APTT D-Dimer Heparin Anti-Xa Level POC ABG pH POC ABG pCO2 POC ABG pO2 Sodium Potassium 5.6 H Chloride 110.8 H Carbon Dioxide BUN 50 H Creatinine 2.2 H Glucose 52 L POC Glucose 60 L Hemoglobin A1c Lactic Acid Calcium 8.1 L Phosphorus Magnesium Alkaline Phosphatase Total Creatine Kinase CK-MB (CK-2) CK-MB (CK-2) Rel Index Troponin T NT-Pro-B Natriuret Pep Serum Total Protein Total Protein Albumin Ltdkd-5-Xsuqcwhve PEP Interpretation LDL Cholesterol Direct HDL Cholesterol PTH Intact Urine Creatinine Urine Total Protein Valproic Acid Crossmatch 10/10/18 10/10/18 10/10/18 05:00 06:11 11:30 WBC RBC Hgb Hct MCH RDW Lymph % (Auto) Taylor % (Auto) Eos % (Auto) Lymph # Taylor # Seg Neutrophils % Seg Neuts % (Manual) Lymphocytes % (Manual) Lymphocytes # (Manual) APTT D-Dimer Heparin Anti-Xa Level POC ABG pH POC ABG pCO2 POC ABG pO2 Sodium Potassium Chloride Carbon Dioxide BUN Creatinine Glucose POC Glucose 57 L 48 L Hemoglobin A1c 8.2 H Lactic Acid Calcium Phosphorus Magnesium Alkaline Phosphatase Total Creatine Kinase CK-MB (CK-2) CK-MB (CK-2) Rel Index Troponin T NT-Pro-B Natriuret Pep Serum Total Protein Total Protein Albumin Uoltj-5-Pceoyalrm PEP Interpretation LDL Cholesterol Direct HDL Cholesterol PTH Intact Urine Creatinine Urine Total Protein Valproic Acid Crossmatch 10/10/18 10/10/18 10/10/18 12:22 13:36 13:36 WBC RBC Hgb Hct MCH RDW Lymph % (Auto) Taylor % (Auto) Eos % (Auto) Lymph # Taylor # Seg Neutrophils % Seg Neuts % (Manual) Lymphocytes % (Manual) Lymphocytes # (Manual) APTT D-Dimer 927.57 H Heparin Anti-Xa Level POC ABG pH 7.286 L POC ABG pCO2 47.3 H POC ABG pO2 65 L Sodium Potassium Chloride Carbon Dioxide BUN Creatinine Glucose POC Glucose Hemoglobin A1c Lactic Acid 0.60 L Calcium Phosphorus Magnesium Alkaline Phosphatase Total Creatine Kinase CK-MB (CK-2) CK-MB (CK-2) Rel Index Troponin T NT-Pro-B Natriuret Pep Serum Total Protein Total Protein Albumin Avbto-0-Elgdtkxiw PEP Interpretation LDL Cholesterol Direct HDL Cholesterol PTH Intact Urine Creatinine Urine Total Protein Valproic Acid Crossmatch 10/10/18 10/10/18 10/10/18 16:42 21:12 22:30 WBC RBC Hgb Hct MCH RDW Lymph % (Auto) Taylor % (Auto) Eos % (Auto) Lymph # Taylor # Seg Neutrophils % Seg Neuts % (Manual) Lymphocytes % (Manual) Lymphocytes # (Manual) APTT D-Dimer Heparin Anti-Xa Level POC ABG pH POC ABG pCO2 POC ABG pO2 Sodium Potassium Chloride Carbon Dioxide BUN Creatinine Glucose POC Glucose 122 H 119 H Hemoglobin A1c Lactic Acid Calcium Phosphorus Magnesium Alkaline Phosphatase Total Creatine Kinase CK-MB (CK-2) CK-MB (CK-2) Rel Index Troponin T NT-Pro-B Natriuret Pep Serum Total Protein Total Protein Albumin Gloty-9-Idbgnnllz PEP Interpretation LDL Cholesterol Direct HDL Cholesterol PTH Intact Urine Creatinine 118.6 H Urine Total Protein 152 H Valproic Acid Crossmatch 10/11/18 10/11/18 10/11/18 04:31 04:31 13:15 WBC RBC Hgb 8.7 L Hct 27.9 L MCH RDW Lymph % (Auto) Taylor % (Auto) Eos % (Auto) Lymph # Taylor # Seg Neutrophils % Seg Neuts % (Manual) Lymphocytes % (Manual) Lymphocytes # (Manual) APTT D-Dimer Heparin Anti-Xa Level POC ABG pH POC ABG pCO2 POC ABG pO2 Sodium Potassium 6.6 H* 6.4 H* Chloride Carbon Dioxide BUN 55 H Creatinine 2.9 H Glucose POC Glucose Hemoglobin A1c Lactic Acid Calcium 7.6 L Phosphorus Magnesium Alkaline Phosphatase Total Creatine Kinase CK-MB (CK-2) CK-MB (CK-2) Rel Index Troponin T NT-Pro-B Natriuret Pep Serum Total Protein Total Protein Albumin Nmfav-9-Tosltogto PEP Interpretation LDL Cholesterol Direct HDL Cholesterol PTH Intact Urine Creatinine Urine Total Protein Valproic Acid Crossmatch 10/11/18 10/11/18 10/12/18 20:45 22:37 04:25 WBC RBC Hgb Hct MCH RDW Lymph % (Auto) Taylor % (Auto) Eos % (Auto) Lymph # Taylor # Seg Neutrophils % Seg Neuts % (Manual) Lymphocytes % (Manual) Lymphocytes # (Manual) APTT D-Dimer Heparin Anti-Xa Level POC ABG pH POC ABG pCO2 POC ABG pO2 Sodium Potassium Chloride Carbon Dioxide BUN 37 H 38 H Creatinine 2.4 H 2.3 H Glucose POC Glucose 117 H Hemoglobin A1c Lactic Acid Calcium 7.5 L 7.6 L Phosphorus Magnesium Alkaline Phosphatase 261 H Total Creatine Kinase CK-MB (CK-2) CK-MB (CK-2) Rel Index Troponin T NT-Pro-B Natriuret Pep Serum Total Protein Total Protein 6.2 L Albumin 3.0 L Ihksg-2-Docfwqxjb PEP Interpretation LDL Cholesterol Direct HDL Cholesterol PTH Intact Urine Creatinine Urine Total Protein Valproic Acid Crossmatch 10/12/18 10/12/18 10/13/18 10:02 21:33 03:28 WBC RBC Hgb 7.6 L 7.7 L Hct 24.1 L 23.8 L MCH RDW Lymph % (Auto) Taylor % (Auto) Eos % (Auto) Lymph # Taylor # Seg Neutrophils % Seg Neuts % (Manual) Lymphocytes % (Manual) Lymphocytes # (Manual) APTT D-Dimer Heparin Anti-Xa Level POC ABG pH POC ABG pCO2 POC ABG pO2 Sodium Potassium Chloride Carbon Dioxide BUN Creatinine Glucose POC Glucose 109 H Hemoglobin A1c Lactic Acid Calcium Phosphorus Magnesium Alkaline Phosphatase Total Creatine Kinase CK-MB (CK-2) CK-MB (CK-2) Rel Index Troponin T NT-Pro-B Natriuret Pep Serum Total Protein Total Protein Albumin Xcazx-4-Cmzcwkmnv PEP Interpretation LDL Cholesterol Direct HDL Cholesterol PTH Intact Urine Creatinine Urine Total Protein Valproic Acid Crossmatch 10/13/18 10/13/18 10/13/18 03:28 08:27 15:04 WBC RBC Hgb Hct MCH RDW Lymph % (Auto) Taylor % (Auto) Eos % (Auto) Lymph # Taylor # Seg Neutrophils % Seg Neuts % (Manual) Lymphocytes % (Manual) Lymphocytes # (Manual) APTT D-Dimer Heparin Anti-Xa Level POC ABG pH POC ABG pCO2 POC ABG pO2 Sodium Potassium Chloride Carbon Dioxide BUN 38 H Creatinine 1.9 H Glucose POC Glucose 136 H 160 H Hemoglobin A1c Lactic Acid Calcium 8.3 L Phosphorus Magnesium Alkaline Phosphatase Total Creatine Kinase CK-MB (CK-2) CK-MB (CK-2) Rel Index Troponin T NT-Pro-B Natriuret Pep Serum Total Protein Total Protein Albumin Usxpj-2-Vdhgjyaho PEP Interpretation LDL Cholesterol Direct HDL Cholesterol PTH Intact Urine Creatinine Urine Total Protein Valproic Acid Crossmatch 10/13/18 10/13/18 10/14/18 16:53 23:06 06:06 WBC RBC Hgb Hct MCH RDW Lymph % (Auto) Taylor % (Auto) Eos % (Auto) Lymph # Taylor # Seg Neutrophils % Seg Neuts % (Manual) Lymphocytes % (Manual) Lymphocytes # (Manual) APTT D-Dimer Heparin Anti-Xa Level POC ABG pH POC ABG pCO2 POC ABG pO2 Sodium Potassium Chloride 107.7 H Carbon Dioxide BUN 39 H Creatinine 1.8 H Glucose 116 H POC Glucose 161 H 213 H Hemoglobin A1c Lactic Acid Calcium Phosphorus Magnesium 2.40 H Alkaline Phosphatase Total Creatine Kinase CK-MB (CK-2) CK-MB (CK-2) Rel Index Troponin T NT-Pro-B Natriuret Pep Serum Total Protein Total Protein Albumin Hprmx-8-Duvdpcgnc PEP Interpretation LDL Cholesterol Direct HDL Cholesterol PTH Intact Urine Creatinine Urine Total Protein Valproic Acid Crossmatch 10/14/18 10/14/18 10/14/18 06:34 11:01 13:50 WBC RBC Hgb 7.8 L Hct 24.8 L MCH RDW Lymph % (Auto) Taylor % (Auto) Eos % (Auto) Lymph # Taylor # Seg Neutrophils % Seg Neuts % (Manual) Lymphocytes % (Manual) Lymphocytes # (Manual) APTT D-Dimer Heparin Anti-Xa Level POC ABG pH POC ABG pCO2 POC ABG pO2 Sodium Potassium Chloride Carbon Dioxide BUN Creatinine Glucose POC Glucose 118 H 67 L Hemoglobin A1c Lactic Acid Calcium Phosphorus Magnesium Alkaline Phosphatase Total Creatine Kinase CK-MB (CK-2) CK-MB (CK-2) Rel Index Troponin T NT-Pro-B Natriuret Pep Serum Total Protein Total Protein Albumin Ercfl-6-Wbnypwtab PEP Interpretation LDL Cholesterol Direct HDL Cholesterol PTH Intact Urine Creatinine Urine Total Protein Valproic Acid Crossmatch 10/14/18 10/15/18 10/15/18 21:37 05:39 05:39 WBC RBC Hgb 7.6 L Hct 23.5 L MCH RDW Lymph % (Auto) Taylor % (Auto) Eos % (Auto) Lymph # Taylor # Seg Neutrophils % Seg Neuts % (Manual) Lymphocytes % (Manual) Lymphocytes # (Manual) APTT D-Dimer Heparin Anti-Xa Level POC ABG pH POC ABG pCO2 POC ABG pO2 Sodium Potassium Chloride Carbon Dioxide BUN Creatinine Glucose POC Glucose 125 H Hemoglobin A1c Lactic Acid Calcium Phosphorus Magnesium Alkaline Phosphatase Total Creatine Kinase CK-MB (CK-2) CK-MB (CK-2) Rel Index Troponin T NT-Pro-B Natriuret Pep Serum Total Protein 5.6 L Total Protein Albumin 2.5 L Ljzkf-5-Legwvgfqn 0.4 H PEP Interpretation see below H LDL Cholesterol Direct HDL Cholesterol PTH Intact Urine Creatinine Urine Total Protein Valproic Acid Crossmatch 10/15/18 10/15/18 10/15/18 05:39 06:27 07:48 WBC RBC Hgb Hct MCH RDW Lymph % (Auto) Taylor % (Auto) Eos % (Auto) Lymph # Taylor # Seg Neutrophils % Seg Neuts % (Manual) Lymphocytes % (Manual) Lymphocytes # (Manual) APTT D-Dimer Heparin Anti-Xa Level POC ABG pH POC ABG pCO2 POC ABG pO2 Sodium Potassium Chloride Carbon Dioxide BUN 45 H Creatinine 2.1 H Glucose 59 L POC Glucose 46 L 65 L Hemoglobin A1c Lactic Acid Calcium 8.3 L Phosphorus Magnesium Alkaline Phosphatase Total Creatine Kinase CK-MB (CK-2) CK-MB (CK-2) Rel Index Troponin T NT-Pro-B Natriuret Pep Serum Total Protein Total Protein Albumin Dmkyc-1-Cqnvvkase PEP Interpretation LDL Cholesterol Direct HDL Cholesterol PTH Intact Urine Creatinine Urine Total Protein Valproic Acid Crossmatch 10/15/18 10/15/18 10/15/18 13:21 13:24 21:23 WBC RBC Hgb Hct MCH RDW Lymph % (Auto) Taylor % (Auto) Eos % (Auto) Lymph # Taylor # Seg Neutrophils % Seg Neuts % (Manual) Lymphocytes % (Manual) Lymphocytes # (Manual) APTT D-Dimer Heparin Anti-Xa Level POC ABG pH POC ABG pCO2 48.4 H POC ABG pO2 77 L Sodium Potassium Chloride Carbon Dioxide BUN Creatinine Glucose POC Glucose 106 H 160 H Hemoglobin A1c Lactic Acid Calcium Phosphorus Magnesium Alkaline Phosphatase Total Creatine Kinase CK-MB (CK-2) CK-MB (CK-2) Rel Index Troponin T NT-Pro-B Natriuret Pep Serum Total Protein Total Protein Albumin Uuuwa-2-Ejnhxlaes PEP Interpretation LDL Cholesterol Direct HDL Cholesterol PTH Intact Urine Creatinine Urine Total Protein Valproic Acid Crossmatch 10/16/18 10/16/18 10/16/18 06:25 06:49 21:42 WBC RBC Hgb Hct MCH RDW Lymph % (Auto) Taylor % (Auto) Eos % (Auto) Lymph # Taylor # Seg Neutrophils % Seg Neuts % (Manual) Lymphocytes % (Manual) Lymphocytes # (Manual) APTT D-Dimer Heparin Anti-Xa Level POC ABG pH POC ABG pCO2 POC ABG pO2 Sodium Potassium Chloride 107.7 H Carbon Dioxide BUN 53 H Creatinine 2.2 H Glucose 61 L POC Glucose 51 L 153 H Hemoglobin A1c Lactic Acid Calcium Phosphorus Magnesium Alkaline Phosphatase Total Creatine Kinase CK-MB (CK-2) CK-MB (CK-2) Rel Index Troponin T NT-Pro-B Natriuret Pep Serum Total Protein Total Protein Albumin Yefds-5-Ktelmrztj PEP Interpretation LDL Cholesterol Direct HDL Cholesterol PTH Intact Urine Creatinine Urine Total Protein Valproic Acid Crossmatch 10/17/18 10/17/18 10/17/18 05:22 05:22 05:22 WBC RBC Hgb 7.6 L Hct 23.1 L MCH RDW Lymph % (Auto) Taylor % (Auto) Eos % (Auto) Lymph # Taylor # Seg Neutrophils % Seg Neuts % (Manual) Lymphocytes % (Manual) Lymphocytes # (Manual) APTT D-Dimer Heparin Anti-Xa Level POC ABG pH POC ABG pCO2 POC ABG pO2 Sodium Potassium Chloride Carbon Dioxide BUN 59 H Creatinine 2.2 H Glucose 111 H POC Glucose Hemoglobin A1c Lactic Acid Calcium Phosphorus Magnesium Alkaline Phosphatase Total Creatine Kinase CK-MB (CK-2) CK-MB (CK-2) Rel Index Troponin T NT-Pro-B Natriuret Pep Serum Total Protein Total Protein Albumin Bzpzt-7-Ardzmeska PEP Interpretation LDL Cholesterol Direct HDL Cholesterol PTH Intact 152.8 H Urine Creatinine Urine Total Protein Valproic Acid Crossmatch 10/17/18 10/17/18 10/18/18 12:17 21:32 06:36 WBC RBC Hgb Hct MCH RDW Lymph % (Auto) Taylor % (Auto) Eos % (Auto) Lymph # Taylor # Seg Neutrophils % Seg Neuts % (Manual) Lymphocytes % (Manual) Lymphocytes # (Manual) APTT D-Dimer Heparin Anti-Xa Level POC ABG pH POC ABG pCO2 POC ABG pO2 Sodium Potassium Chloride Carbon Dioxide BUN Creatinine Glucose POC Glucose 130 H 402 H 217 H Hemoglobin A1c Lactic Acid Calcium Phosphorus Magnesium Alkaline Phosphatase Total Creatine Kinase CK-MB (CK-2) CK-MB (CK-2) Rel Index Troponin T NT-Pro-B Natriuret Pep Serum Total Protein Total Protein Albumin Lkcof-7-Ujbzqngbi PEP Interpretation LDL Cholesterol Direct HDL Cholesterol PTH Intact Urine Creatinine Urine Total Protein Valproic Acid Crossmatch 10/18/18 10/18/18 10/18/18 08:19 12:24 18:30 WBC RBC Hgb Hct MCH RDW Lymph % (Auto) Taylor % (Auto) Eos % (Auto) Lymph # Taylor # Seg Neutrophils % Seg Neuts % (Manual) Lymphocytes % (Manual) Lymphocytes # (Manual) APTT D-Dimer Heparin Anti-Xa Level POC ABG pH POC ABG pCO2 POC ABG pO2 Sodium Potassium 5.6 H Chloride 107.3 H Carbon Dioxide BUN 62 H Creatinine 2.3 H Glucose 201 H POC Glucose 159 H 136 H Hemoglobin A1c Lactic Acid Calcium Phosphorus Magnesium Alkaline Phosphatase Total Creatine Kinase CK-MB (CK-2) CK-MB (CK-2) Rel Index Troponin T NT-Pro-B Natriuret Pep Serum Total Protein Total Protein Albumin Eycht-1-Whkpcjnyz PEP Interpretation LDL Cholesterol Direct HDL Cholesterol PTH Intact Urine Creatinine Urine Total Protein Valproic Acid Crossmatch 10/19/18 10/19/18 10/19/18 04:53 04:53 11:33 WBC RBC 2.74 L Hgb 7.5 L Hct 23.0 L MCH 27 L RDW 17.9 H Lymph % (Auto) 11.3 L Taylor % (Auto) 14.5 H Eos % (Auto) Lymph # 1.0 L Taylor # 1.2 H Seg Neutrophils % 71.4 H Seg Neuts % (Manual) Lymphocytes % (Manual) Lymphocytes # (Manual) APTT D-Dimer Heparin Anti-Xa Level POC ABG pH POC ABG pCO2 POC ABG pO2 Sodium Potassium Chloride Carbon Dioxide 33 H BUN 33 H Creatinine Glucose 52 L POC Glucose 148 H Hemoglobin A1c Lactic Acid Calcium Phosphorus Magnesium Alkaline Phosphatase Total Creatine Kinase CK-MB (CK-2) CK-MB (CK-2) Rel Index Troponin T NT-Pro-B Natriuret Pep Serum Total Protein Total Protein Albumin Ummmv-9-Mdeuaewwv PEP Interpretation LDL Cholesterol Direct HDL Cholesterol PTH Intact Urine Creatinine Urine Total Protein Valproic Acid Crossmatch 10/19/18 10/20/18 10/20/18 21:10 05:30 18:14 WBC RBC Hgb Hct MCH RDW Lymph % (Auto) Taylor % (Auto) Eos % (Auto) Lymph # Taylor # Seg Neutrophils % Seg Neuts % (Manual) Lymphocytes % (Manual) Lymphocytes # (Manual) APTT D-Dimer Heparin Anti-Xa Level POC ABG pH POC ABG pCO2 POC ABG pO2 Sodium Potassium 5.1 H Chloride Carbon Dioxide 31 H BUN 40 H Creatinine 1.6 H Glucose POC Glucose 132 H 114 H Hemoglobin A1c Lactic Acid Calcium Phosphorus Magnesium Alkaline Phosphatase Total Creatine Kinase CK-MB (CK-2) CK-MB (CK-2) Rel Index Troponin T NT-Pro-B Natriuret Pep Serum Total Protein Total Protein Albumin Tvrvs-5-Pkbppfeff PEP Interpretation LDL Cholesterol Direct HDL Cholesterol PTH Intact Urine Creatinine Urine Total Protein Valproic Acid Crossmatch 10/20/18 10/21/18 10/21/18 20:57 06:26 06:26 WBC RBC 2.76 L Hgb 7.7 L Hct 23.1 L MCH RDW 18.2 H Lymph % (Auto) Taylor % (Auto) Eos % (Auto) Lymph # Taylor # Seg Neutrophils % Seg Neuts % (Manual) 79.0 H Lymphocytes % (Manual) 9.0 L Lymphocytes # (Manual) 0.7 L APTT D-Dimer Heparin Anti-Xa Level POC ABG pH POC ABG pCO2 POC ABG pO2 Sodium 146 H Potassium Chloride Carbon Dioxide 31 H BUN 41 H Creatinine 1.6 H Glucose POC Glucose 196 H Hemoglobin A1c Lactic Acid Calcium Phosphorus 4.70 H Magnesium Alkaline Phosphatase Total Creatine Kinase CK-MB (CK-2) CK-MB (CK-2) Rel Index Troponin T NT-Pro-B Natriuret Pep Serum Total Protein Total Protein Albumin Aazmk-2-Szufrndxt PEP Interpretation LDL Cholesterol Direct HDL Cholesterol PTH Intact Urine Creatinine Urine Total Protein Valproic Acid Crossmatch 10/21/18 10/21/18 10/21/18 06:26 08:52 17:00 WBC RBC Hgb Hct MCH RDW Lymph % (Auto) Taylor % (Auto) Eos % (Auto) Lymph # Taylor # Seg Neutrophils % Seg Neuts % (Manual) Lymphocytes % (Manual) Lymphocytes # (Manual) APTT D-Dimer Heparin Anti-Xa Level POC ABG pH POC ABG pCO2 POC ABG pO2 Sodium Potassium Chloride Carbon Dioxide BUN Creatinine Glucose POC Glucose 172 H Hemoglobin A1c Lactic Acid Calcium Phosphorus Magnesium Alkaline Phosphatase 258 H Total Creatine Kinase CK-MB (CK-2) CK-MB (CK-2) Rel Index Troponin T NT-Pro-B Natriuret Pep Serum Total Protein Total Protein Albumin Xvhju-5-Eotkdczkz PEP Interpretation LDL Cholesterol Direct HDL Cholesterol PTH Intact Urine Creatinine Urine Total Protein Valproic Acid 46.4 L Crossmatch 10/21/18 10/22/18 10/22/18 23:37 05:25 05:25 WBC RBC 2.17 L Hgb 6.1 L Hct 20.7 L MCH RDW 18.2 H Lymph % (Auto) Taylor % (Auto) 14.8 H Eos % (Auto) Lymph # Taylor # 1.2 H Seg Neutrophils % Seg Neuts % (Manual) Lymphocytes % (Manual) Lymphocytes # (Manual) APTT D-Dimer Heparin Anti-Xa Level POC ABG pH POC ABG pCO2 POC ABG pO2 Sodium Potassium Chloride Carbon Dioxide 31 H BUN 45 H Creatinine 1.7 H Glucose 143 H POC Glucose 186 H Hemoglobin A1c Lactic Acid Calcium 8.3 L Phosphorus Magnesium Alkaline Phosphatase Total Creatine Kinase CK-MB (CK-2) CK-MB (CK-2) Rel Index Troponin T NT-Pro-B Natriuret Pep Serum Total Protein Total Protein Albumin Nluqk-9-Grtfuhlrq PEP Interpretation LDL Cholesterol Direct HDL Cholesterol PTH Intact Urine Creatinine Urine Total Protein Valproic Acid Crossmatch 10/22/18 10/22/18 10/22/18 10:31 12:27 17:13 WBC RBC Hgb Hct MCH RDW Lymph % (Auto) Taylor % (Auto) Eos % (Auto) Lymph # Taylor # Seg Neutrophils % Seg Neuts % (Manual) Lymphocytes % (Manual) Lymphocytes # (Manual) APTT D-Dimer Heparin Anti-Xa Level POC ABG pH POC ABG pCO2 POC ABG pO2 Sodium Potassium Chloride Carbon Dioxide BUN Creatinine Glucose POC Glucose 198 H 137 H Hemoglobin A1c Lactic Acid Calcium Phosphorus Magnesium Alkaline Phosphatase Total Creatine Kinase CK-MB (CK-2) CK-MB (CK-2) Rel Index Troponin T NT-Pro-B Natriuret Pep Serum Total Protein Total Protein Albumin Kmpxk-3-Eiiyajyia PEP Interpretation LDL Cholesterol Direct HDL Cholesterol PTH Intact Urine Creatinine Urine Total Protein Valproic Acid Crossmatch See Detail 10/22/18 10/23/18 10/23/18 20:35 06:00 09:07 WBC 11.1 H RBC 2.99 L Hgb 8.4 L Hct 25.7 L MCH RDW 17.9 H Lymph % (Auto) Taylor % (Auto) Eos % (Auto) Lymph # Taylor # Seg Neutrophils % Seg Neuts % (Manual) Lymphocytes % (Manual) Lymphocytes # (Manual) APTT D-Dimer Heparin Anti-Xa Level POC ABG pH POC ABG pCO2 POC ABG pO2 Sodium Potassium Chloride Carbon Dioxide BUN Creatinine Glucose POC Glucose 196 H 246 H Hemoglobin A1c Lactic Acid Calcium Phosphorus Magnesium Alkaline Phosphatase Total Creatine Kinase CK-MB (CK-2) CK-MB (CK-2) Rel Index Troponin T NT-Pro-B Natriuret Pep Serum Total Protein Total Protein Albumin Rnbwy-1-Wgsspjjqf PEP Interpretation LDL Cholesterol Direct HDL Cholesterol PTH Intact Urine Creatinine Urine Total Protein Valproic Acid Crossmatch 10/23/18 10/23/18 10/23/18 09:07 11:37 17:16 WBC RBC Hgb Hct MCH RDW Lymph % (Auto) Taylor % (Auto) Eos % (Auto) Lymph # Taylor # Seg Neutrophils % Seg Neuts % (Manual) Lymphocytes % (Manual) Lymphocytes # (Manual) APTT D-Dimer Heparin Anti-Xa Level POC ABG pH POC ABG pCO2 POC ABG pO2 Sodium Potassium 5.2 H Chloride Carbon Dioxide BUN 48 H Creatinine 2.4 H Glucose 247 H POC Glucose 222 H 196 H Hemoglobin A1c Lactic Acid Calcium Phosphorus Magnesium Alkaline Phosphatase Total Creatine Kinase CK-MB (CK-2) CK-MB (CK-2) Rel Index Troponin T NT-Pro-B Natriuret Pep Serum Total Protein Total Protein Albumin [id number]-9-Izwgoltoh PEP Interpretation LDL Cholesterol Direct HDL Cholesterol PTH Intact Urine Creatinine Urine Total Protein Valproic Acid Crossmatch 10/23/18 10/24/18 10/24/18 21:39 04:13 04:13 WBC RBC 2.69 L Hgb 7.7 L Hct 23.4 L MCH RDW 18.3 H Lymph % (Auto) Taylor % (Auto) Eos % (Auto) Lymph # Taylor # Seg Neutrophils % Seg Neuts % (Manual) 77.0 H Lymphocytes % (Manual) 12.0 L Lymphocytes # (Manual) APTT D-Dimer Heparin Anti-Xa Level POC ABG pH POC ABG pCO2 POC ABG pO2 Sodium Potassium 5.1 H Chloride Carbon Dioxide BUN 53 H Creatinine 2.0 H Glucose 224 H POC Glucose 234 H Hemoglobin A1c Lactic Acid Calcium 8.3 L Phosphorus Magnesium Alkaline Phosphatase Total Creatine Kinase CK-MB (CK-2) CK-MB (CK-2) Rel Index Troponin T NT-Pro-B Natriuret Pep Serum Total Protein Total Protein Albumin Ivcka-7-Ybbothboy PEP Interpretation LDL Cholesterol Direct HDL Cholesterol PTH Intact Urine Creatinine Urine Total Protein Valproic Acid Crossmatch 10/24/18 07:51 WBC RBC Hgb Hct MCH RDW Lymph % (Auto) Taylor % (Auto) Eos % (Auto) Lymph # Taylor # Seg Neutrophils % Seg Neuts % (Manual) Lymphocytes % (Manual) Lymphocytes # (Manual) APTT D-Dimer Heparin Anti-Xa Level POC ABG pH POC ABG pCO2 POC ABG pO2 Sodium Potassium Chloride Carbon Dioxide BUN Creatinine Glucose POC Glucose 295 H Hemoglobin A1c Lactic Acid Calcium Phosphorus Magnesium Alkaline Phosphatase Total Creatine Kinase CK-MB (CK-2) CK-MB (CK-2) Rel Index Troponin T NT-Pro-B Natriuret Pep Serum Total Protein Total Protein Albumin Nurmh-6-Tugdrhkxp PEP Interpretation LDL Cholesterol Direct HDL Cholesterol PTH Intact Urine Creatinine Urine Total Protein Valproic Acid Crossmatch Allied health notes reviewed: nursing
--- NOTE | 2018-10-24 10:38 | Progress Note ---
Assessment and Plan Assessment and plan: --Uncontrolled DM : Add normal in 70/30 , 8 units twice a day cont SSI, Accu-Cheks, ADA diet, -- Anemia: Chronic disease ;transfused 2 unit PRBC Patient's hemoglobin improved to 7.5, Closely monitor H&H --Altered mental status/Acute encephalopathy ; present on admission head CT with no acute process, baseline --Bilateral moderate pleural effusion; Spontaneous improvement of right pleural effusion from 300 mL- 31 mL Left pleural effusion decreased from 421 mL-112 mL No indication for thoracentesis, continue hemodialysis --MAXIMO / hyperkalemia : HD per nephro --Hypotension- s/p vasopressor , currently hypertensive. --NSTEMI type II- s/p heparin drip, obtained 2d echo, cardiology evaluated and signed off Outpatient follow-up for further evaluation and management --Acute on chronic systolic CHF: EF 35-40%, cont aspirin/statin, monitor daily wt, ins/os, restrict fluid --Sinus bradycardia -resolved, avoid beta blockers --Anemia, chronic kidney disease; closely monitor --HTN, continue current antihypertensives and when necessary medications --HLP, cont statin -- h/o psych disorder, supportive care, discussed with psych cleared to d/c home,no need to return to psych facility --Extensive scrotal swelling, ultrasound; thick skin, testis and epididymis normal --DC planning per case management. Discharge planning; per case management Patient is stable to be discharged History Interval history: Patient seen and examined medical records reviewed No new events reported by the nursing staff Patient feels better blood sugars as high Resume 7030 insulin Alert awake oriented Vital signs noted Hospitalist Physical - Constitutional Vitals: Temp Pulse Resp BP Pulse Ox 97.7 F 84 18 124/67 96 10/24/18 06:30 10/24/18 06:30 10/24/18 06:30 10/24/18 06:30 10/24/18 06:30 General appearance: Present: no acute distress, well-nourished - EENT Eyes: Present: PERRL, EOM intact - Neck Neck: Present: supple, normal ROM - Respiratory Respiratory effort: normal Respiratory: bilateral: diminished, negative: rales, rhonchi, wheezing - Cardiovascular Rhythm: regular Heart Sounds: Present: S1 & S2 - Extremities Extremities: no ischemia, No edema - Abdominal General gastrointestinal: soft, non-tender, non-distended, normal bowel sounds - Integumentary Integumentary: Present: clear, warm - Psychiatric Psychiatric: appropriate mood/affect, cooperative - Neurologic Neurologic: moves all extremities Results - Labs CBC & Chem 7: 10/24/18 04:13 10/24/18 04:13 Labs: Laboratory Last Values WBC 9.7 K/mm3 (4.5-11.0) 10/24/18 04:13 RBC 2.69 M/mm3 (3.65-5.03) L 10/24/18 04:13 Hgb 7.7 gm/dl (11.8-15.2) L 10/24/18 04:13 Hct 23.4 % (35.5-45.6) L 10/24/18 04:13 MCV 87 fl (84-94) 10/24/18 04:13 MCH 29 pg (28-32) 10/24/18 04:13 MCHC 33 % (32-34) 10/24/18 04:13 RDW 18.3 % (13.2-15.2) H 10/24/18 04:13 Plt Count 194 K/mm3 (140-440) 10/24/18 04:13 Lymph % (Auto) 15.4 % (13.4-35.0) 10/22/18 05:25 [place] % (Auto) 14.8 % (0.0-7.3) H 10/22/18 05:25 Eos % (Auto) 2.1 % (0.0-4.3) 10/22/18 05:25 Baso % (Auto) 0.1 % (0.0-1.8) 10/22/18 05:25 Lymph # 1.2 K/mm3 (1.2-5.4) 10/22/18 05:25 [place] # 1.2 K/mm3 (0.0-0.8) H 10/22/18 05:25 Eos # 0.2 K/mm3 (0.0-0.4) 10/22/18 05:25 Baso # 0.0 K/mm3 (0.0-0.1) 10/22/18 05:25 Add Manual Diff Complete 10/24/18 04:13 Total Counted 100 10/24/18 04:13 Seg Neutrophils % 67.6 % (40.0-70.0) 10/22/18 05:25 Seg Neuts % (Manual) 77.0 % (40.0-70.0) H 10/24/18 04:13 Band Neutrophils % 0 % 10/24/18 04:13 Lymphocytes % (Manual) 12.0 % (13.4-35.0) L 10/24/18 04:13 Reactive Lymphs % (Man) 0 % 10/24/18 04:13 Monocytes % (Manual) 7.0 % (0.0-7.3) 10/24/18 04:13 Eosinophils % (Manual) 2.0 % (0.0-4.3) 10/24/18 04:13 Basophils % (Manual) 0 % (0.0-1.8) 10/24/18 04:13 Metamyelocytes % 0 % 10/24/18 04:13 Myelocytes % 2.0 % 10/24/18 04:13 Promyelocytes % 0 % 10/24/18 04:13 Blast Cells % 0 % 10/24/18 04:13 Nucleated RBC % Not Reportable 10/24/18 04:13 Seg Neutrophils # 5.4 K/mm3 (1.8-7.7) 10/22/18 05:25 Seg Neutrophils # Man 7.5 K/mm3 (1.8-7.7) 10/24/18 04:13 Band Neutrophils # 0.0 K/mm3 10/24/18 04:13 Lymphocytes # (Manual) 1.2 K/mm3 (1.2-5.4) 10/24/18 04:13 Abs React Lymphs (Man) 0.0 K/mm3 10/24/18 04:13 Monocytes # (Manual) 0.7 K/mm3 (0.0-0.8) 10/24/18 04:13 Eosinophils # (Manual) 0.2 K/mm3 (0.0-0.4) 10/24/18 04:13 Basophils # (Manual) 0.0 K/mm3 (0.0-0.1) 10/24/18 04:13 Metamyelocytes # 0.0 K/mm3 10/24/18 04:13 Myelocytes # 0.2 K/mm3 10/24/18 04:13 Promyelocytes # 0.0 K/mm3 10/24/18 04:13 Blast Cells # 0.0 K/mm3 10/24/18 04:13 WBC Morphology Not Reportable 10/24/18 04:13 Hypersegmented Neuts Not Reportable 10/24/18 04:13 Hyposegmented Neuts Not Reportable 10/24/18 04:13 Hypogranular Neuts Not Reportable 10/24/18 04:13 Smudge Cells Not Reportable 10/24/18 04:13 Toxic Granulation Not Reportable 10/24/18 04:13 Toxic Vacuolation Not Reportable 10/24/18 04:13 Dohle Bodies Not Reportable 10/24/18 04:13 Pelger-Huet Anomaly Not Reportable 10/24/18 04:13 Wong Rods Not Reportable 10/24/18 04:13 Platelet Estimate Consistent w auto 10/24/18 04:13 Clumped Platelets Not Reportable 10/24/18 04:13 Plt Clumps, EDTA Not Reportable 10/24/18 04:13 Large Platelets Not Reportable 10/24/18 04:13 Giant Platelets Not Reportable 10/24/18 04:13 Platelet Satelliting Not Reportable 10/24/18 04:13 Plt Morphology Comment Not Reportable 10/24/18 04:13 RBC Morphology Not Reportable 10/24/18 04:13 Dimorphic RBCs Not Reportable 10/24/18 04:13 Polychromasia 1+ 10/24/18 04:13 Hypochromasia Not Reportable 10/24/18 04:13 Poikilocytosis Not Reportable 10/24/18 04:13 Anisocytosis 1+ 10/24/18 04:13 Microcytosis Few 10/24/18 04:13 Macrocytosis Not Reportable 10/24/18 04:13 Spherocytes Not Reportable 10/24/18 04:13 Pappenheimer Bodies Not Reportable 10/24/18 04:13 Sickle Cells Not Reportable 10/24/18 04:13 Target Cells Not Reportable 10/24/18 04:13 Tear Drop Cells Not Reportable 10/24/18 04:13 Ovalocytes Not Reportable 10/24/18 04:13 Helmet Cells Not Reportable 10/24/18 04:13 Fernandez-Pevely Bodies Not Reportable 10/24/18 04:13 [place] Rings Not Reportable 10/24/18 04:13 Bennett Cells Not Reportable 10/24/18 04:13 Bite Cells Not Reportable 10/24/18 04:13 Crenated Cell Not Reportable 10/24/18 04:13 Elliptocytes Not Reportable 10/24/18 04:13 Acanthocytes (Spur) Not Reportable 10/24/18 04:13 Rouleaux Not Reportable 10/24/18 04:13 Hemoglobin C Crystals Not Reportable 10/24/18 04:13 Schistocytes Not Reportable 10/24/18 04:13 Malaria parasites Not Reportable 10/24/18 04:13 Domenic Bodies Not Reportable 10/24/18 04:13 Hem Pathologist Commnt No 10/24/18 04:13 PT 14.0 Sec. (12.2-14.9) 10/17/18 Unknown INR 1.04 (0.87-1.13) 10/17/18 Unknown APTT 42.4 Sec. (24.2-36.6) H 10/09/18 14:25 D-Dimer 927.57 ng/mlDDU (0-234) H 10/10/18 13:36 Heparin Anti-Xa Level 0.49 U.I./ml (0.3-0.7) 10/11/18 04:31 POC ABG pH 7.359 (7.35-7.45) 10/15/18 13:21 POC ABG pCO2 48.4 (35-45) H 10/15/18 13:21 POC ABG pO2 77 (80-105) L 10/15/18 13:21 POC ABG HCO3 27.3 10/15/18 13:21 POC ABG Total CO2 29 10/15/18 13:21 POC ABG O2 Sat 95 10/15/18 13:21 POC ABG Base Excess 2 10/15/18 13:21 FiO2 21 % 10/15/18 13:21 Sodium 139 mmol/L (137-145) 10/24/18 04:13 Potassium 5.1 mmol/L (3.6-5.0) H 10/24/18 04:13 Chloride 98.7 mmol/L (98-107) 10/24/18 04:13 Carbon Dioxide 28 mmol/L (22-30) 10/24/18 04:13 Anion Gap 17 mmol/L 10/24/18 04:13 BUN 53 mg/dL (9-20) H 10/24/18 04:13 Creatinine 2.0 mg/dL (0.8-1.5) H 10/24/18 04:13 Estimated GFR 43 ml/min 10/24/18 04:13 BUN/Creatinine Ratio 27 % 10/24/18 04:13 Glucose 224 mg/dL (75-100) H 10/24/18 04:13 POC Glucose 295 (70-105) H 10/24/18 07:51 Hemoglobin A1c 8.2 % (4-6) H 10/10/18 05:00 Lactic Acid 0.60 mmol/L (0.7-2.0) L 10/10/18 13:36 Calcium 8.3 mg/dL (8.4-10.2) L 10/24/18 04:13 Phosphorus 4.70 mg/dL (2.5-4.5) H 10/21/18 06:26 Magnesium 2.20 mg/dL (1.7-2.3) 10/21/18 06:26 Total Bilirubin < 0.20 mg/dL (0.1-1.2) 10/11/18 20:45 AST 18 units/L (5-40) 10/21/18 06:26 ALT 29 units/L (7-56) 10/21/18 06:26 Alkaline Phosphatase 258 units/L (35-129) H 10/21/18 06:26 Total Creatine Kinase 481 units/L (55-170) H 10/09/18 11:22 CK-MB (CK-2) 20.5 ng/mL (0.0-4.0) H 10/09/18 11:22 CK-MB (CK-2) Rel Index 4.2 (0-4) H 10/09/18 11:22 Troponin T 0.139 ng/mL (0.00-0.029) H* 10/09/18 20:56 C-Reactive Protein 0.90 mg/dL (0.00-1.30) 10/10/18 13:36 NT-Pro-B Natriuret Pep 2963 pg/mL (0-450) H 10/09/18 11:22 Serum Total Protein 5.6 g/dL (6.1-8.1) L 10/15/18 05:39 Total Protein 6.2 g/dL (6.3-8.2) L 10/11/18 20:45 Albumin 2.5 g/dL (3.8-4.8) L 10/15/18 05:39 Albumin/Globulin Ratio 0.9 % 10/11/18 20:45 Mzgno-2-Tlredxonf 0.4 g/dL (0.2-0.3) H 10/15/18 05:39 Lnkgt-0-Uupiixqet 0.7 g/dL (0.5-0.9) 10/15/18 05:39 Beta Globulins 0.4 g/dL (0.2-0.5) 10/15/18 05:39 Gamma Globulins 1.2 g/dL (0.8-1.7) 10/15/18 05:39 Abnorm Protein Band 1 see below 10/15/18 05:39 PEP Interpretation see below H 10/15/18 05:39 Triglycerides 24 mg/dL (2-149) 10/09/18 11:22 Cholesterol 115 mg/dL (50-199) 10/09/18 11:22 LDL Cholesterol Direct 49 mg/dL (50-130) L 10/09/18 11:22 HDL Cholesterol 73 mg/dL (40-59) H 10/09/18 11:22 Cholesterol/HDL Ratio 1.57 % 10/09/18 11:22 Amylase 50 units/L (27-131) 10/21/18 06:26 Lipase 13 units/L (13-60) 10/21/18 06:26 PTH Intact 152.8 pg/mL (15-65) H 10/17/18 05:22 Urine Color Tamie (Yellow) 10/10/18 22:30 Urine Turbidity Clear (Clear) 10/10/18 22:30 Urine pH 5.0 (5.0-7.0) 10/10/18 22:30 Ur Specific [place] 1.016 (1.003-1.030) 10/10/18 22:30 Urine Protein 100 mg/dl mg/dL (Negative) 10/10/18 22:30 Urine Glucose (UA) 50 mg/dL (Negative) 10/10/18 22:30 Urine Ketones Neg mg/dL (Negative) 10/10/18 22:30 Urine Blood Neg (Negative) 10/10/18 22:30 Urine Nitrite Neg (Negative) 10/10/18 22:30 Urine Bilirubin Neg (Negative) 10/10/18 22:30 Urine Urobilinogen 4.0 mg/dL (<2.0) 10/10/18 22:30 Ur Leukocyte Esterase Tr (Negative) 10/10/18 22:30 Urine WBC (Auto) 2.0 /HPF (0.0-6.0) 10/10/18 22:30 Urine RBC (Auto) 5.0 /HPF (0.0-6.0) 10/10/18 22:30 U Epithel Cells (Auto) < 1.0 /HPF (0-13.0) 10/10/18 22:30 Urine Bacteria (Auto) 1+ /HPF (Negative) 10/10/18 22:30 Hyaline Casts 1 /LPF 10/10/18 22:30 Urine Mucus Few /HPF 10/10/18 22:30 Urine Creatinine 118.6 mg/dL (0.1-20.0) H 10/10/18 22:30 Protein/Creatinin Ratio 1.28 10/10/18 22:30 Urine Sodium 35 mmol/L 10/10/18 22:30 Urine Total Protein 152 mg/dL (5-11.8) H 10/10/18 22:30 Valproic Acid 46.4 ug/mL (50-100) L 10/21/18 08:52 BROWN Screen Negative (Negative) 10/15/18 05:39 Proteinase 3 (PR3) Ab <1.0 AI (<1.0) 10/15/18 05:39 Myeloperoxidase Ab <1.0 AI (<1.0) 10/15/18 05:39 Complement C3 129 mg/dL (82-185) 10/15/18 05:39 Complement C4 34 mg/dL (15-53) 10/15/18 05:39 Hepatitis A IgM Ab Non-reactive (NonReactive) 10/11/18 13:24 Hep Bs Antigen Non-reactive (Negative) 10/11/18 13:24 Hep B Core IgM Ab Non-reactive (NonReactive) 10/11/18 13:24 Hepatitis C Antibody Non-reactive (NonReactive) 10/11/18 13:24 Blood Type AB POSITIVE 10/22/18 10:31 Antibody Screen Negative 10/22/18 10:31 Crossmatch See Detail 10/22/18 10:31 Nutrition/Malnutrition Assess - Dietary Evaluation Nutrition/Malnutrition Findings: Nutrition Notes Start: 10/16/18 16:17 Freq: Status: Active Protocol: Document 10/18/18 18:14 RM (Rec: 10/18/18 18:24 RM [id number]) Nutrition Notes Initial or Follow up Reassessment Current Diagnosis Acute Kidney Injury Diabetes Hypertension Heart Failure Other Pertinent Diagnosis Encephalopathy, R leg diabetic PU, AMS Current Diet Cardiac/Renal/Consistent Carb w/Nepro Butter Pecan BID Labs/Tests K 5.6 Pertinent Medications Lasix Height 6 ft 2 in Weight 119 kg Roff Body Weight (lbs) 190.0 BMI 33.7 Subjective/Other Information Pt not in room at time of visit. Tech stated that pt ate most of her meals yesterday and drank all of the Nepro yesterday. Tech unsure of how much pt ate today. Percent of energy/protein needs met: 90%/94% Burn Absent Trauma Absent #1 Nutrition Diagnosis Inadequate oral intake As Evidenced by Signs and Symptoms pt meeting 90% of calorie needs and 94% of protein needs Diagnosis Progress(for reassessment Resolved documentation) Is patient on ventilator? No Is Patient Ambulatory and/or Out of Bed No REE-([facility]-confined to bed) [phone] Calculation Used for Recommendations [facility] Additional Notes Protein Needs: 103-134g (1-1. 3g/kg, 103kg adjBW) Fluid Needs: 1ml/kcal Nutrition Intervention Change Diet Order: Continue current Add Supplement/Snack (indicate name/kcal Continue Nepro BID /protein ) Provides kCal: 850 Provides Protein (gm) 38 Goal #1 Meet at least 75% of calorie and protein needs via PO and ONS intakes Anticipated Discharge Needs: Cardiac/Consistent Carb/Renal Follow-Up By: 10/25/18 Additional Comments Follow for PO and ONS intakes
[2018-10-24] MEDS: PERCOCET 5/325 PO PRN ×2 (14:17→21:41)
[2018-10-24] MEDS: ZAROXOLYN PO SCH (18:26)
[2018-10-24] MEDS: PRAVACHOL PO SCH (21:38)
[2018-10-24] MEDS: RisperDAL PO SCH (21:39)
[2018-10-25] MEDS: HEPARIN SUB-Q SCH ×3 (06:14→23:00)
[2018-10-25 06:23] LABS: Hematocrit 24.7 % (35.5-45.6); Hemoglobin 7.9 gm/dl (11.8-15.2); Mean Corpuscular HGB Conc 32 % (32-34); Mean Corpuscular Volume 87 fl (84-94); Platelet Count 270 K/mm3 (140-440); Red Blood Count 2.83 M/mm3 (3.65-5.03); Red Cell Distribution Width 18.1 % (13.2-15.2)
[2018-10-25 06:43] LABS: Calcium 8.5 mg/dL (8.4-10.2)
[2018-10-25] MEDS: HumuLIN R SUB-Q SCH ×4 (09:44→23:00)
[2018-10-25] MEDS: FEOSOL PO SCH (09:46)
[2018-10-25] MEDS: LASIX PO SCH ×3 (09:46→23:00)
[2018-10-25] MEDS: PEPCID PO SCH (09:46)
[2018-10-25] MEDS: COREG PO SCH ×3 (09:46→23:00)
[2018-10-25] MEDS: NEURONTIN PO SCH (09:46)
[2018-10-25] MEDS: ASPIRIN PO SCH (09:46)
[2018-10-25] MEDS: SODIUM CHLORIDE FLUSH SYRINGE 10 ML IV SCH ×2 (09:56→23:00)
[2018-10-25] MEDS ORDERED: KIONEX PO ONE ×2 (12:00→21:23)
--- NOTE | 2018-10-25 12:26 | Progress Note ---
Assessment and Plan Severe Sepsis syndrome. Shock (cardiogenic versus septic) Acute encephalopathy. Possible seizures. History of diabetes CMOP Leukopenia. Anemia that is normocytic. Acute hypercapnic respiratory acidosis. Hyperkalemia. Acute kidney injury. Non-ST elevation myocardial infarction. Hypoglycemia. Possible peripheral vascular disease. Obesity. - VQ scan intermediate prob but clinically he is improved - kayexalate for hyperkalemia - continue azotemia - continue DVT prophylaxis with heparin 5000U sq q8h - lower extremity dopplers negative - azotemia per nephrology; numbers improving - prn suppelemntal oxygen to keep sats > 90% - continue risperdone - PT/OT as tolerated - mobility protocol for pressure ulcer prophylaxis - aspiration precautions - prn bronchodilators with pulmonary hygiene per RT - continue stress ulcer prophylaxis - s/p empiric Antibiotics course (Levaquin) - continue Mobility protocol for pressure ulcer prevention - continue other care per attending / other consultants .... re-evaluate in am & prn FULL CODE STATUS Subjective Date of service: 10/25/18 Principal diagnosis: Severe Sepsis with Shock; Acute encephalopathy; MAXIMO; Diabetes II; CMOP Interval history: Patient is seen today for: Severe Sepsis syndrome; Shock (cardiogenic versus septic); Acute encephalopathy; Possible seizures; History of diabetes; CMOP Seen and examined at bedside; 24hour events reviewed; nursing and respiratory care staff consulted; no adverse overnight events reported to me; resting peacefully in bed; hyperkalemia noted; he denies chest pains or palpitations; remains off oxygen at this point but serum creatinine is worsening Objective Vital Signs - 12hr 10/25/18 10/25/18 05:53 09:46 Temperature 97.8 F Pulse Rate 73 Respiratory 20 Rate Blood Pressure 150/79 145/83 O2 Sat by Pulse 98 Oximetry Constitutional: no acute distress, alert, other (middle aged AAM, normocephalic and atraumatic with normal respiratory effort) Eyes: non-icteric ENT: oropharynx moist Neck: supple, no lymphadenopathy, no JVD Effort: normal Ascultation: Bilateral: diminished breath sounds, rhonchi (bases) Percussion: Bilateral: not dull Cardiovascular: regular rate and rhythm Gastrointestinal: normoactive bowel sounds, soft, non-tender, non-distended Integumentary: rash (feet) Extremities: no cyanosis, pulses normal, no ischemia or petechiae, edema (trace to 1+) Neurologic: normal mental status, non-focal exam, pupils equal and round, motor strength normal and, other (sensory numbness to feet) Psychiatric: mood appropriate, affect normal, other CBC and BMP: 10/26/18 05:31 10/26/18 05:31 ABG, PT/INR, D-dimer: ABG POC ABG pH 7.359 (7.35-7.45) 10/15/18 13:21 POC ABG pCO2 48.4 (35-45) H 10/15/18 13:21 POC ABG pO2 77 (80-105) L 10/15/18 13:21 POC ABG HCO3 27.3 10/15/18 13:21 POC ABG Total CO2 29 10/15/18 13:21 POC ABG O2 Sat 95 10/15/18 13:21 PT/INR, D-dimer PT 14.0 Sec. (12.2-14.9) 10/17/18 Unknown INR 1.04 (0.87-1.13) 10/17/18 Unknown D-Dimer 927.57 ng/mlDDU (0-234) H 10/10/18 13:36 Abnormal lab findings: Abnormal Labs 10/09/18 10/09/18 10/09/18 11:22 11:22 11:22 WBC 3.3 L RBC 3.03 L Hgb 8.4 L Hct 25.8 L MCH RDW 18.7 H Lymph % (Auto) [place] % (Auto) 12.1 H Eos % (Auto) 4.6 H Lymph # 0.5 L [place] # Seg Neutrophils % Seg Neuts % (Manual) Lymphocytes % (Manual) Lymphocytes # (Manual) APTT 42.8 H D-Dimer Heparin Anti-Xa Level POC ABG pH POC ABG pCO2 POC ABG pO2 Sodium Potassium 5.2 H Chloride 108.2 H Carbon Dioxide BUN 49 H Creatinine 1.9 H Glucose 153 H POC Glucose Hemoglobin A1c Lactic Acid Calcium Phosphorus Magnesium Alkaline Phosphatase Total Creatine Kinase 481 H CK-MB (CK-2) 20.5 H CK-MB (CK-2) Rel Index 4.2 H Troponin T 0.153 H* NT-Pro-B Natriuret Pep 2963 H Serum Total Protein Total Protein Albumin Kijyh-8-Ftnmdqleu PEP Interpretation LDL Cholesterol Direct 49 L HDL Cholesterol 73 H PTH Intact Urine Creatinine Urine Total Protein Valproic Acid Crossmatch 10/09/18 10/09/18 10/09/18 13:43 14:25 14:25 WBC RBC Hgb 8.2 L Hct 26.2 L MCH RDW Lymph % (Auto) [place] % (Auto) Eos % (Auto) Lymph # [place] # Seg Neutrophils % Seg Neuts % (Manual) Lymphocytes % (Manual) Lymphocytes # (Manual) APTT 42.4 H D-Dimer Heparin Anti-Xa Level POC ABG pH POC ABG pCO2 POC ABG pO2 Sodium Potassium Chloride Carbon Dioxide BUN Creatinine Glucose POC Glucose 167 H Hemoglobin A1c Lactic Acid Calcium Phosphorus Magnesium Alkaline Phosphatase Total Creatine Kinase CK-MB (CK-2) CK-MB (CK-2) Rel Index Troponin T NT-Pro-B Natriuret Pep Serum Total Protein Total Protein Albumin Ryecf-5-Xoezphsec PEP Interpretation LDL Cholesterol Direct HDL Cholesterol PTH Intact Urine Creatinine Urine Total Protein Valproic Acid Crossmatch 10/09/18 10/09/18 10/09/18 17:28 20:56 21:23 WBC RBC Hgb Hct MCH RDW Lymph % (Auto) [place] % (Auto) Eos % (Auto) Lymph # [place] # Seg Neutrophils % Seg Neuts % (Manual) Lymphocytes % (Manual) Lymphocytes # (Manual) APTT D-Dimer Heparin Anti-Xa Level 0.28 L POC ABG pH POC ABG pCO2 POC ABG pO2 Sodium Potassium Chloride Carbon Dioxide BUN Creatinine Glucose POC Glucose Hemoglobin A1c Lactic Acid Calcium Phosphorus Magnesium Alkaline Phosphatase Total Creatine Kinase CK-MB (CK-2) CK-MB (CK-2) Rel Index Troponin T 0.136 H* 0.139 H* NT-Pro-B Natriuret Pep Serum Total Protein Total Protein Albumin Xxihw-6-Xeesicneq PEP Interpretation LDL Cholesterol Direct HDL Cholesterol PTH Intact Urine Creatinine Urine Total Protein Valproic Acid Crossmatch 10/10/18 10/10/18 10/10/18 00:10 05:00 05:00 WBC 3.3 L RBC 2.99 L Hgb 8.2 L Hct 25.9 L MCH 27 L RDW 19.2 H Lymph % (Auto) [place] % (Auto) 13.2 H Eos % (Auto) 5.8 H Lymph # 0.5 L [place] # Seg Neutrophils % Seg Neuts % (Manual) Lymphocytes % (Manual) Lymphocytes # (Manual) APTT D-Dimer Heparin Anti-Xa Level POC ABG pH POC ABG pCO2 POC ABG pO2 Sodium Potassium 5.6 H Chloride 110.8 H Carbon Dioxide BUN 50 H Creatinine 2.2 H Glucose 52 L POC Glucose 60 L Hemoglobin A1c Lactic Acid Calcium 8.1 L Phosphorus Magnesium Alkaline Phosphatase Total Creatine Kinase CK-MB (CK-2) CK-MB (CK-2) Rel Index Troponin T NT-Pro-B Natriuret Pep Serum Total Protein Total Protein Albumin Vtsvk-2-Vylrilbjw PEP Interpretation LDL Cholesterol Direct HDL Cholesterol PTH Intact Urine Creatinine Urine Total Protein Valproic Acid Crossmatch 10/10/18 10/10/18 10/10/18 05:00 06:11 11:30 WBC RBC Hgb Hct MCH RDW Lymph % (Auto) [place] % (Auto) Eos % (Auto) Lymph # [place] # Seg Neutrophils % Seg Neuts % (Manual) Lymphocytes % (Manual) Lymphocytes # (Manual) APTT D-Dimer Heparin Anti-Xa Level POC ABG pH POC ABG pCO2 POC ABG pO2 Sodium Potassium Chloride Carbon Dioxide BUN Creatinine Glucose POC Glucose 57 L 48 L Hemoglobin A1c 8.2 H Lactic Acid Calcium Phosphorus Magnesium Alkaline Phosphatase Total Creatine Kinase CK-MB (CK-2) CK-MB (CK-2) Rel Index Troponin T NT-Pro-B Natriuret Pep Serum Total Protein Total Protein Albumin Jscph-6-Ayropwbui PEP Interpretation LDL Cholesterol Direct HDL Cholesterol PTH Intact Urine Creatinine Urine Total Protein Valproic Acid Crossmatch 10/10/18 10/10/18 10/10/18 12:22 13:36 13:36 WBC RBC Hgb Hct MCH RDW Lymph % (Auto) [place] % (Auto) Eos % (Auto) Lymph # [place] # Seg Neutrophils % Seg Neuts % (Manual) Lymphocytes % (Manual) Lymphocytes # (Manual) APTT D-Dimer 927.57 H Heparin Anti-Xa Level POC ABG pH 7.286 L POC ABG pCO2 47.3 H POC ABG pO2 65 L Sodium Potassium Chloride Carbon Dioxide BUN Creatinine Glucose POC Glucose Hemoglobin A1c Lactic Acid 0.60 L Calcium Phosphorus Magnesium Alkaline Phosphatase Total Creatine Kinase CK-MB (CK-2) CK-MB (CK-2) Rel Index Troponin T NT-Pro-B Natriuret Pep Serum Total Protein Total Protein Albumin Msvdm-1-Ckwercwig PEP Interpretation LDL Cholesterol Direct HDL Cholesterol PTH Intact Urine Creatinine Urine Total Protein Valproic Acid Crossmatch 10/10/18 10/10/18 10/10/18 16:42 21:12 22:30 WBC RBC Hgb Hct MCH RDW Lymph % (Auto) [place] % (Auto) Eos % (Auto) Lymph # [place] # Seg Neutrophils % Seg Neuts % (Manual) Lymphocytes % (Manual) Lymphocytes # (Manual) APTT D-Dimer Heparin Anti-Xa Level POC ABG pH POC ABG pCO2 POC ABG pO2 Sodium Potassium Chloride Carbon Dioxide BUN Creatinine Glucose POC Glucose 122 H 119 H Hemoglobin A1c Lactic Acid Calcium Phosphorus Magnesium Alkaline Phosphatase Total Creatine Kinase CK-MB (CK-2) CK-MB (CK-2) Rel Index Troponin T NT-Pro-B Natriuret Pep Serum Total Protein Total Protein Albumin Kdhgp-4-Inzdccxml PEP Interpretation LDL Cholesterol Direct HDL Cholesterol PTH Intact Urine Creatinine 118.6 H Urine Total Protein 152 H Valproic Acid Crossmatch 10/11/18 10/11/18 10/11/18 04:31 04:31 13:15 WBC RBC Hgb 8.7 L Hct 27.9 L MCH RDW Lymph % (Auto) [place] % (Auto) Eos % (Auto) Lymph # [place] # Seg Neutrophils % Seg Neuts % (Manual) Lymphocytes % (Manual) Lymphocytes # (Manual) APTT D-Dimer Heparin Anti-Xa Level POC ABG pH POC ABG pCO2 POC ABG pO2 Sodium Potassium 6.6 H* 6.4 H* Chloride Carbon Dioxide BUN 55 H Creatinine 2.9 H Glucose POC Glucose Hemoglobin A1c Lactic Acid Calcium 7.6 L Phosphorus Magnesium Alkaline Phosphatase Total Creatine Kinase CK-MB (CK-2) CK-MB (CK-2) Rel Index Troponin T NT-Pro-B Natriuret Pep Serum Total Protein Total Protein Albumin Dyqhq-3-Qsffigptn PEP Interpretation LDL Cholesterol Direct HDL Cholesterol PTH Intact Urine Creatinine Urine Total Protein Valproic Acid Crossmatch 10/11/18 10/11/18 10/12/18 20:45 22:37 04:25 WBC RBC Hgb Hct MCH RDW Lymph % (Auto) [place] % (Auto) Eos % (Auto) Lymph # [place] # Seg Neutrophils % Seg Neuts % (Manual) Lymphocytes % (Manual) Lymphocytes # (Manual) APTT D-Dimer Heparin Anti-Xa Level POC ABG pH POC ABG pCO2 POC ABG pO2 Sodium Potassium Chloride Carbon Dioxide BUN 37 H 38 H Creatinine 2.4 H 2.3 H Glucose POC Glucose 117 H Hemoglobin A1c Lactic Acid Calcium 7.5 L 7.6 L Phosphorus Magnesium Alkaline Phosphatase 261 H Total Creatine Kinase CK-MB (CK-2) CK-MB (CK-2) Rel Index Troponin T NT-Pro-B Natriuret Pep Serum Total Protein Total Protein 6.2 L Albumin 3.0 L Hicjg-5-Sdgscvllc PEP Interpretation LDL Cholesterol Direct HDL Cholesterol PTH Intact Urine Creatinine Urine Total Protein Valproic Acid Crossmatch 10/12/18 10/12/18 10/13/18 10:02 21:33 03:28 WBC RBC Hgb 7.6 L 7.7 L Hct 24.1 L 23.8 L MCH RDW Lymph % (Auto) [place] % (Auto) Eos % (Auto) Lymph # [place] # Seg Neutrophils % Seg Neuts % (Manual) Lymphocytes % (Manual) Lymphocytes # (Manual) APTT D-Dimer Heparin Anti-Xa Level POC ABG pH POC ABG pCO2 POC ABG pO2 Sodium Potassium Chloride Carbon Dioxide BUN Creatinine Glucose POC Glucose 109 H Hemoglobin A1c Lactic Acid Calcium Phosphorus Magnesium Alkaline Phosphatase Total Creatine Kinase CK-MB (CK-2) CK-MB (CK-2) Rel Index Troponin T NT-Pro-B Natriuret Pep Serum Total Protein Total Protein Albumin Muwoq-4-Ayqdsismn PEP Interpretation LDL Cholesterol Direct HDL Cholesterol PTH Intact Urine Creatinine Urine Total Protein Valproic Acid Crossmatch 10/13/18 10/13/18 10/13/18 03:28 08:27 15:04 WBC RBC Hgb Hct MCH RDW Lymph % (Auto) [place] % (Auto) Eos % (Auto) Lymph # [place] # Seg Neutrophils % Seg Neuts % (Manual) Lymphocytes % (Manual) Lymphocytes # (Manual) APTT D-Dimer Heparin Anti-Xa Level POC ABG pH POC ABG pCO2 POC ABG pO2 Sodium Potassium Chloride Carbon Dioxide BUN 38 H Creatinine 1.9 H Glucose POC Glucose 136 H 160 H Hemoglobin A1c Lactic Acid Calcium 8.3 L Phosphorus Magnesium Alkaline Phosphatase Total Creatine Kinase CK-MB (CK-2) CK-MB (CK-2) Rel Index Troponin T NT-Pro-B Natriuret Pep Serum Total Protein Total Protein Albumin Hdqaf-1-Emoskrxmu PEP Interpretation LDL Cholesterol Direct HDL Cholesterol PTH Intact Urine Creatinine Urine Total Protein Valproic Acid Crossmatch 10/13/18 10/13/18 10/14/18 16:53 23:06 06:06 WBC RBC Hgb Hct MCH RDW Lymph % (Auto) [place] % (Auto) Eos % (Auto) Lymph # [place] # Seg Neutrophils % Seg Neuts % (Manual) Lymphocytes % (Manual) Lymphocytes # (Manual) APTT D-Dimer Heparin Anti-Xa Level POC ABG pH POC ABG pCO2 POC ABG pO2 Sodium Potassium Chloride 107.7 H Carbon Dioxide BUN 39 H Creatinine 1.8 H Glucose 116 H POC Glucose 161 H 213 H Hemoglobin A1c Lactic Acid Calcium Phosphorus Magnesium 2.40 H Alkaline Phosphatase Total Creatine Kinase CK-MB (CK-2) CK-MB (CK-2) Rel Index Troponin T NT-Pro-B Natriuret Pep Serum Total Protein Total Protein Albumin Pfqjs-1-Dftpimgmc PEP Interpretation LDL Cholesterol Direct HDL Cholesterol PTH Intact Urine Creatinine Urine Total Protein Valproic Acid Crossmatch 10/14/18 10/14/18 10/14/18 06:34 11:01 13:50 WBC RBC Hgb 7.8 L Hct 24.8 L MCH RDW Lymph % (Auto) [place] % (Auto) Eos % (Auto) Lymph # [place] # Seg Neutrophils % Seg Neuts % (Manual) Lymphocytes % (Manual) Lymphocytes # (Manual) APTT D-Dimer Heparin Anti-Xa Level POC ABG pH POC ABG pCO2 POC ABG pO2 Sodium Potassium Chloride Carbon Dioxide BUN Creatinine Glucose POC Glucose 118 H 67 L Hemoglobin A1c Lactic Acid Calcium Phosphorus Magnesium Alkaline Phosphatase Total Creatine Kinase CK-MB (CK-2) CK-MB (CK-2) Rel Index Troponin T NT-Pro-B Natriuret Pep Serum Total Protein Total Protein Albumin Yuhdm-6-Aqpcerrjt PEP Interpretation LDL Cholesterol Direct HDL Cholesterol PTH Intact Urine Creatinine Urine Total Protein Valproic Acid Crossmatch 10/14/18 10/15/18 10/15/18 21:37 05:39 05:39 WBC RBC Hgb 7.6 L Hct 23.5 L MCH RDW Lymph % (Auto) [place] % (Auto) Eos % (Auto) Lymph # [place] # Seg Neutrophils % Seg Neuts % (Manual) Lymphocytes % (Manual) Lymphocytes # (Manual) APTT D-Dimer Heparin Anti-Xa Level POC ABG pH POC ABG pCO2 POC ABG pO2 Sodium Potassium Chloride Carbon Dioxide BUN Creatinine Glucose POC Glucose 125 H Hemoglobin A1c Lactic Acid Calcium Phosphorus Magnesium Alkaline Phosphatase Total Creatine Kinase CK-MB (CK-2) CK-MB (CK-2) Rel Index Troponin T NT-Pro-B Natriuret Pep Serum Total Protein 5.6 L Total Protein Albumin 2.5 L Wgigz-4-Gxowipcxy 0.4 H PEP Interpretation see below H LDL Cholesterol Direct HDL Cholesterol PTH Intact Urine Creatinine Urine Total Protein Valproic Acid Crossmatch 10/15/18 10/15/18 10/15/18 05:39 06:27 07:48 WBC RBC Hgb Hct MCH RDW Lymph % (Auto) [place] % (Auto) Eos % (Auto) Lymph # [place] # Seg Neutrophils % Seg Neuts % (Manual) Lymphocytes % (Manual) Lymphocytes # (Manual) APTT D-Dimer Heparin Anti-Xa Level POC ABG pH POC ABG pCO2 POC ABG pO2 Sodium Potassium Chloride Carbon Dioxide BUN 45 H Creatinine 2.1 H Glucose 59 L POC Glucose 46 L 65 L Hemoglobin A1c Lactic Acid Calcium 8.3 L Phosphorus Magnesium Alkaline Phosphatase Total Creatine Kinase CK-MB (CK-2) CK-MB (CK-2) Rel Index Troponin T NT-Pro-B Natriuret Pep Serum Total Protein Total Protein Albumin Liwvx-5-Meqwgskrn PEP Interpretation LDL Cholesterol Direct HDL Cholesterol PTH Intact Urine Creatinine Urine Total Protein Valproic Acid Crossmatch 10/15/18 10/15/18 10/15/18 13:21 13:24 21:23 WBC RBC Hgb Hct MCH RDW Lymph % (Auto) [place] % (Auto) Eos % (Auto) Lymph # [place] # Seg Neutrophils % Seg Neuts % (Manual) Lymphocytes % (Manual) Lymphocytes # (Manual) APTT D-Dimer Heparin Anti-Xa Level POC ABG pH POC ABG pCO2 48.4 H POC ABG pO2 77 L Sodium Potassium Chloride Carbon Dioxide BUN Creatinine Glucose POC Glucose 106 H 160 H Hemoglobin A1c Lactic Acid Calcium Phosphorus Magnesium Alkaline Phosphatase Total Creatine Kinase CK-MB (CK-2) CK-MB (CK-2) Rel Index Troponin T NT-Pro-B Natriuret Pep Serum Total Protein Total Protein Albumin Stuwn-4-Xyyeuugqp PEP Interpretation LDL Cholesterol Direct HDL Cholesterol PTH Intact Urine Creatinine Urine Total Protein Valproic Acid Crossmatch 10/16/18 10/16/18 10/16/18 06:25 06:49 21:42 WBC RBC Hgb Hct MCH RDW Lymph % (Auto) [place] % (Auto) Eos % (Auto) Lymph # [place] # Seg Neutrophils % Seg Neuts % (Manual) Lymphocytes % (Manual) Lymphocytes # (Manual) APTT D-Dimer Heparin Anti-Xa Level POC ABG pH POC ABG pCO2 POC ABG pO2 Sodium Potassium Chloride 107.7 H Carbon Dioxide BUN 53 H Creatinine 2.2 H Glucose 61 L POC Glucose 51 L 153 H Hemoglobin A1c Lactic Acid Calcium Phosphorus Magnesium Alkaline Phosphatase Total Creatine Kinase CK-MB (CK-2) CK-MB (CK-2) Rel Index Troponin T NT-Pro-B Natriuret Pep Serum Total Protein Total Protein Albumin Chxay-4-Kpddfiddl PEP Interpretation LDL Cholesterol Direct HDL Cholesterol PTH Intact Urine Creatinine Urine Total Protein Valproic Acid Crossmatch 10/17/18 10/17/18 10/17/18 05:22 05:22 05:22 WBC RBC Hgb 7.6 L Hct 23.1 L MCH RDW Lymph % (Auto) [place] % (Auto) Eos % (Auto) Lymph # [place] # Seg Neutrophils % Seg Neuts % (Manual) Lymphocytes % (Manual) Lymphocytes # (Manual) APTT D-Dimer Heparin Anti-Xa Level POC ABG pH POC ABG pCO2 POC ABG pO2 Sodium Potassium Chloride Carbon Dioxide BUN 59 H Creatinine 2.2 H Glucose 111 H POC Glucose Hemoglobin A1c Lactic Acid Calcium Phosphorus Magnesium Alkaline Phosphatase Total Creatine Kinase CK-MB (CK-2) CK-MB (CK-2) Rel Index Troponin T NT-Pro-B Natriuret Pep Serum Total Protein Total Protein Albumin Vsusq-7-Hddultjzv PEP Interpretation LDL Cholesterol Direct HDL Cholesterol PTH Intact 152.8 H Urine Creatinine Urine Total Protein Valproic Acid Crossmatch 10/17/18 10/17/18 10/18/18 12:17 21:32 06:36 WBC RBC Hgb Hct MCH RDW Lymph % (Auto) [place] % (Auto) Eos % (Auto) Lymph # [place] # Seg Neutrophils % Seg Neuts % (Manual) Lymphocytes % (Manual) Lymphocytes # (Manual) APTT D-Dimer Heparin Anti-Xa Level POC ABG pH POC ABG pCO2 POC ABG pO2 Sodium Potassium Chloride Carbon Dioxide BUN Creatinine Glucose POC Glucose 130 H 402 H 217 H Hemoglobin A1c Lactic Acid Calcium Phosphorus Magnesium Alkaline Phosphatase Total Creatine Kinase CK-MB (CK-2) CK-MB (CK-2) Rel Index Troponin T NT-Pro-B Natriuret Pep Serum Total Protein Total Protein Albumin [place]-1-Oorvbmhol PEP Interpretation LDL Cholesterol Direct HDL Cholesterol PTH Intact Urine Creatinine Urine Total Protein Valproic Acid Crossmatch 10/18/18 10/18/18 10/18/18 08:19 12:24 18:30 WBC RBC Hgb Hct MCH RDW Lymph % (Auto) [place] % (Auto) Eos % (Auto) Lymph # [place] # Seg Neutrophils % Seg Neuts % (Manual) Lymphocytes % (Manual) Lymphocytes # (Manual) APTT D-Dimer Heparin Anti-Xa Level POC ABG pH POC ABG pCO2 POC ABG pO2 Sodium Potassium 5.6 H Chloride 107.3 H Carbon Dioxide BUN 62 H Creatinine 2.3 H Glucose 201 H POC Glucose 159 H 136 H Hemoglobin A1c Lactic Acid Calcium Phosphorus Magnesium Alkaline Phosphatase Total Creatine Kinase CK-MB (CK-2) CK-MB (CK-2) Rel Index Troponin T NT-Pro-B Natriuret Pep Serum Total Protein Total Protein Albumin Kkiac-4-Evbtxbiel PEP Interpretation LDL Cholesterol Direct HDL Cholesterol PTH Intact Urine Creatinine Urine Total Protein Valproic Acid Crossmatch 10/19/18 10/19/18 10/19/18 04:53 04:53 11:33 WBC RBC 2.74 L Hgb 7.5 L Hct 23.0 L MCH 27 L RDW 17.9 H Lymph % (Auto) 11.3 L [place] % (Auto) 14.5 H Eos % (Auto) Lymph # 1.0 L [place] # 1.2 H Seg Neutrophils % 71.4 H Seg Neuts % (Manual) Lymphocytes % (Manual) Lymphocytes # (Manual) APTT D-Dimer Heparin Anti-Xa Level POC ABG pH POC ABG pCO2 POC ABG pO2 Sodium Potassium Chloride Carbon Dioxide 33 H BUN 33 H Creatinine Glucose 52 L POC Glucose 148 H Hemoglobin A1c Lactic Acid Calcium Phosphorus Magnesium Alkaline Phosphatase Total Creatine Kinase CK-MB (CK-2) CK-MB (CK-2) Rel Index Troponin T NT-Pro-B Natriuret Pep Serum Total Protein Total Protein Albumin Wygbd-7-Imsxtfavk PEP Interpretation LDL Cholesterol Direct HDL Cholesterol PTH Intact Urine Creatinine Urine Total Protein Valproic Acid Crossmatch 10/19/18 10/20/18 10/20/18 21:10 05:30 18:14 WBC RBC Hgb Hct MCH RDW Lymph % (Auto) [place] % (Auto) Eos % (Auto) Lymph # [place] # Seg Neutrophils % Seg Neuts % (Manual) Lymphocytes % (Manual) Lymphocytes # (Manual) APTT D-Dimer Heparin Anti-Xa Level POC ABG pH POC ABG pCO2 POC ABG pO2 Sodium Potassium 5.1 H Chloride Carbon Dioxide 31 H BUN 40 H Creatinine 1.6 H Glucose POC Glucose 132 H 114 H Hemoglobin A1c Lactic Acid Calcium Phosphorus Magnesium Alkaline Phosphatase Total Creatine Kinase CK-MB (CK-2) CK-MB (CK-2) Rel Index Troponin T NT-Pro-B Natriuret Pep Serum Total Protein Total Protein Albumin Oomhw-2-Rlkhrhjei PEP Interpretation LDL Cholesterol Direct HDL Cholesterol PTH Intact Urine Creatinine Urine Total Protein Valproic Acid Crossmatch 10/20/18 10/21/18 10/21/18 20:57 06:26 06:26 WBC RBC 2.76 L Hgb 7.7 L Hct 23.1 L MCH RDW 18.2 H Lymph % (Auto) [place] % (Auto) Eos % (Auto) Lymph # [place] # Seg Neutrophils % Seg Neuts % (Manual) 79.0 H Lymphocytes % (Manual) 9.0 L Lymphocytes # (Manual) 0.7 L APTT D-Dimer Heparin Anti-Xa Level POC ABG pH POC ABG pCO2 POC ABG pO2 Sodium 146 H Potassium Chloride Carbon Dioxide 31 H BUN 41 H Creatinine 1.6 H Glucose POC Glucose 196 H Hemoglobin A1c Lactic Acid Calcium Phosphorus 4.70 H Magnesium Alkaline Phosphatase Total Creatine Kinase CK-MB (CK-2) CK-MB (CK-2) Rel Index Troponin T NT-Pro-B Natriuret Pep Serum Total Protein Total Protein Albumin Hwnvs-0-Fztonjlym PEP Interpretation LDL Cholesterol Direct HDL Cholesterol PTH Intact Urine Creatinine Urine Total Protein Valproic Acid Crossmatch 10/21/18 10/21/18 10/21/18 06:26 08:52 17:00 WBC RBC Hgb Hct MCH RDW Lymph % (Auto) [place] % (Auto) Eos % (Auto) Lymph # [place] # Seg Neutrophils % Seg Neuts % (Manual) Lymphocytes % (Manual) Lymphocytes # (Manual) APTT D-Dimer Heparin Anti-Xa Level POC ABG pH POC ABG pCO2 POC ABG pO2 Sodium Potassium Chloride Carbon Dioxide BUN Creatinine Glucose POC Glucose 172 H Hemoglobin A1c Lactic Acid Calcium Phosphorus Magnesium Alkaline Phosphatase 258 H Total Creatine Kinase CK-MB (CK-2) CK-MB (CK-2) Rel Index Troponin T NT-Pro-B Natriuret Pep Serum Total Protein Total Protein Albumin Fuaos-7-Smpdnppdr PEP Interpretation LDL Cholesterol Direct HDL Cholesterol PTH Intact Urine Creatinine Urine Total Protein Valproic Acid 46.4 L Crossmatch 10/21/18 10/22/18 10/22/18 23:37 05:25 05:25 WBC RBC 2.17 L Hgb 6.1 L Hct 20.7 L MCH RDW 18.2 H Lymph % (Auto) [place] % (Auto) 14.8 H Eos % (Auto) Lymph # [place] # 1.2 H Seg Neutrophils % Seg Neuts % (Manual) Lymphocytes % (Manual) Lymphocytes # (Manual) APTT D-Dimer Heparin Anti-Xa Level POC ABG pH POC ABG pCO2 POC ABG pO2 Sodium Potassium Chloride Carbon Dioxide 31 H BUN 45 H Creatinine 1.7 H Glucose 143 H POC Glucose 186 H Hemoglobin A1c Lactic Acid Calcium 8.3 L Phosphorus Magnesium Alkaline Phosphatase Total Creatine Kinase CK-MB (CK-2) CK-MB (CK-2) Rel Index Troponin T NT-Pro-B Natriuret Pep Serum Total Protein Total Protein Albumin Mrcsp-0-Ojyeeejjn PEP Interpretation LDL Cholesterol Direct HDL Cholesterol PTH Intact Urine Creatinine Urine Total Protein Valproic Acid Crossmatch 10/22/18 10/22/18 10/22/18 10:31 12:27 17:13 WBC RBC Hgb Hct MCH RDW Lymph % (Auto) [place] % (Auto) Eos % (Auto) Lymph # [place] # Seg Neutrophils % Seg Neuts % (Manual) Lymphocytes % (Manual) Lymphocytes # (Manual) APTT D-Dimer Heparin Anti-Xa Level POC ABG pH POC ABG pCO2 POC ABG pO2 Sodium Potassium Chloride Carbon Dioxide BUN Creatinine Glucose POC Glucose 198 H 137 H Hemoglobin A1c Lactic Acid Calcium Phosphorus Magnesium Alkaline Phosphatase Total Creatine Kinase CK-MB (CK-2) CK-MB (CK-2) Rel Index Troponin T NT-Pro-B Natriuret Pep Serum Total Protein Total Protein Albumin Nrwgz-7-Gzjrlwuns PEP Interpretation LDL Cholesterol Direct HDL Cholesterol PTH Intact Urine Creatinine Urine Total Protein Valproic Acid Crossmatch See Detail 10/22/18 10/23/18 10/23/18 20:35 06:00 09:07 WBC 11.1 H RBC 2.99 L Hgb 8.4 L Hct 25.7 L MCH RDW 17.9 H Lymph % (Auto) [place] % (Auto) Eos % (Auto) Lymph # [place] # Seg Neutrophils % Seg Neuts % (Manual) Lymphocytes % (Manual) Lymphocytes # (Manual) APTT D-Dimer Heparin Anti-Xa Level POC ABG pH POC ABG pCO2 POC ABG pO2 Sodium Potassium Chloride Carbon Dioxide BUN Creatinine Glucose POC Glucose 196 H 246 H Hemoglobin A1c Lactic Acid Calcium Phosphorus Magnesium Alkaline Phosphatase Total Creatine Kinase CK-MB (CK-2) CK-MB (CK-2) Rel Index Troponin T NT-Pro-B Natriuret Pep Serum Total Protein Total Protein Albumin Jejdr-5-Qdfojxgzc PEP Interpretation LDL Cholesterol Direct HDL Cholesterol PTH Intact Urine Creatinine Urine Total Protein Valproic Acid Crossmatch 10/23/18 10/23/18 10/23/18 09:07 11:37 17:16 WBC RBC Hgb Hct MCH RDW Lymph % (Auto) [place] % (Auto) Eos % (Auto) Lymph # [place] # Seg Neutrophils % Seg Neuts % (Manual) Lymphocytes % (Manual) Lymphocytes # (Manual) APTT D-Dimer Heparin Anti-Xa Level POC ABG pH POC ABG pCO2 POC ABG pO2 Sodium Potassium 5.2 H Chloride Carbon Dioxide BUN 48 H Creatinine 2.4 H Glucose 247 H POC Glucose 222 H 196 H Hemoglobin A1c Lactic Acid Calcium Phosphorus Magnesium Alkaline Phosphatase Total Creatine Kinase CK-MB (CK-2) CK-MB (CK-2) Rel Index Troponin T NT-Pro-B Natriuret Pep Serum Total Protein Total Protein Albumin Curli-5-Tzkmkjjnp PEP Interpretation LDL Cholesterol Direct HDL Cholesterol PTH Intact Urine Creatinine Urine Total Protein Valproic Acid Crossmatch 10/23/18 10/24/18 10/24/18 21:39 04:13 04:13 WBC RBC 2.69 L Hgb 7.7 L Hct 23.4 L MCH RDW 18.3 H Lymph % (Auto) [place] % (Auto) Eos % (Auto) Lymph # [place] # Seg Neutrophils % Seg Neuts % (Manual) 77.0 H Lymphocytes % (Manual) 12.0 L Lymphocytes # (Manual) APTT D-Dimer Heparin Anti-Xa Level POC ABG pH POC ABG pCO2 POC ABG pO2 Sodium Potassium 5.1 H Chloride Carbon Dioxide BUN 53 H Creatinine 2.0 H Glucose 224 H POC Glucose 234 H Hemoglobin A1c Lactic Acid Calcium 8.3 L Phosphorus Magnesium Alkaline Phosphatase Total Creatine Kinase CK-MB (CK-2) CK-MB (CK-2) Rel Index Troponin T NT-Pro-B Natriuret Pep Serum Total Protein Total Protein Albumin Lbuty-2-Sqncsziww PEP Interpretation LDL Cholesterol Direct HDL Cholesterol PTH Intact Urine Creatinine Urine Total Protein Valproic Acid Crossmatch 10/24/18 10/24/18 10/24/18 07:51 11:41 17:38 WBC RBC Hgb Hct MCH RDW Lymph % (Auto) [place] % (Auto) Eos % (Auto) Lymph # [place] # Seg Neutrophils % Seg Neuts % (Manual) Lymphocytes % (Manual) Lymphocytes # (Manual) APTT D-Dimer Heparin Anti-Xa Level POC ABG pH POC ABG pCO2 POC ABG pO2 Sodium Potassium Chloride Carbon Dioxide BUN Creatinine Glucose POC Glucose 295 H 287 H 163 H Hemoglobin A1c Lactic Acid Calcium Phosphorus Magnesium Alkaline Phosphatase Total Creatine Kinase CK-MB (CK-2) CK-MB (CK-2) Rel Index Troponin T NT-Pro-B Natriuret Pep Serum Total Protein Total Protein Albumin Cfrmu-4-Bajeoofzn PEP Interpretation LDL Cholesterol Direct HDL Cholesterol PTH Intact Urine Creatinine Urine Total Protein Valproic Acid Crossmatch 10/24/18 10/25/18 10/25/18 20:50 05:41 05:41 WBC 12.9 H RBC 2.83 L Hgb 7.9 L Hct 24.7 L MCH RDW 18.1 H Lymph % (Auto) [place] % (Auto) Eos % (Auto) Lymph # [place] # Seg Neutrophils % Seg Neuts % (Manual) Lymphocytes % (Manual) Lymphocytes # (Manual) APTT D-Dimer Heparin Anti-Xa Level POC ABG pH POC ABG pCO2 POC ABG pO2 Sodium Potassium 5.7 H Chloride Carbon Dioxide BUN 62 H Creatinine 2.2 H Glucose 135 H POC Glucose 117 H Hemoglobin A1c Lactic Acid Calcium Phosphorus Magnesium Alkaline Phosphatase Total Creatine Kinase CK-MB (CK-2) CK-MB (CK-2) Rel Index Troponin T NT-Pro-B Natriuret Pep Serum Total Protein Total Protein Albumin Dqmez-5-Vtydutrzn PEP Interpretation LDL Cholesterol Direct HDL Cholesterol PTH Intact Urine Creatinine Urine Total Protein Valproic Acid Crossmatch 10/25/18 10/25/18 07:58 11:18 WBC RBC Hgb Hct MCH RDW Lymph % (Auto) [place] % (Auto) Eos % (Auto) Lymph # [place] # Seg Neutrophils % Seg Neuts % (Manual) Lymphocytes % (Manual) Lymphocytes # (Manual) APTT D-Dimer Heparin Anti-Xa Level POC ABG pH POC ABG pCO2 POC ABG pO2 Sodium Potassium Chloride Carbon Dioxide BUN Creatinine Glucose POC Glucose 203 H 223 H Hemoglobin A1c Lactic Acid Calcium Phosphorus Magnesium Alkaline Phosphatase Total Creatine Kinase CK-MB (CK-2) CK-MB (CK-2) Rel Index Troponin T NT-Pro-B Natriuret Pep Serum Total Protein Total Protein Albumin Rlbdh-9-Nhkyizmzd PEP Interpretation LDL Cholesterol Direct HDL Cholesterol PTH Intact Urine Creatinine Urine Total Protein Valproic Acid Crossmatch Allied health notes reviewed: nursing
--- NOTE | 2018-10-25 12:37 | Progress Note ---
Assessment and Plan 1. Acute kidney injury: MAXIMO likely Vasomotor / hemodynamic mediated in the setting of hypotension. Patient was started on hemodialysis on 10/11/2018 due to continued decline in the Renal function and hyperkalemia. He was last dialyzed on 10/18/18. Likely CKD stage 3, creatinine level fluctuating. 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 Discussed with patient in detail regarding the plan for hemodialysis of needed. He wants to go home, follow with his outpatient Oil Burner Technician and decide about doing dialysis. Patient can leave if the potassium level is better tomorrow. 2. FEN: Volume overload, improved. S/p multiple sessions of Isolated UF. Continue Lasix and Metolazone. Hyperkalemia, Kayexalate three times a week. Metabolic alkalosis, improved. 3. CHF exacerbation: Improved. 4. Hypotension: BP is better. 5. Anemia: Secondary to bleeding from the hemodialysis catheter site. S/p 2 units of PRBC on 10/22. Monitor. Subjective Date of service: 10/25/18 Principal diagnosis: Severe Sepsis with Shock; Acute encephalopathy; MAXIMO; Diabetes II; CMOP Interval history: Patient was seen and examined at the bedside. Doing ok. Objective - Vital Signs Vital signs: Vital Signs - 12hr 10/25/18 10/25/18 05:53 09:46 Temperature 97.8 F Pulse Rate 73 Respiratory 20 Rate Blood Pressure 150/79 145/83 O2 Sat by Pulse 98 Oximetry - General Appearance General appearance: well-developed, well-nourished, appears stated age, other (not in distress) EENT: ATNC, PERRL, hearing intact, vision intact Neck: supple Respiratory: Present: Clear to Ascultation Cardiology: regular, S1S2, no murmurs Gastrointestinal: normoactive bowel sounds, no tenderness, no distended Integumentary: other (left foot dressing noted) Neurologic: no focal deficit, no asterixis, alert and oriented x3 Musculoskeletal: other (trace LE edema noted) - Lab 10/25/18 05:41 10/25/18 19:44 Most recent lab results Calcium 8.5 mg/dL (8.4-10.2) 10/25/18 05:41 Phosphorus 4.70 mg/dL (2.5-4.5) H 10/21/18 06:26 Magnesium 2.20 mg/dL (1.7-2.3) 10/21/18 06:26 Urine Creatinine 118.6 mg/dL (0.1-20.0) H 10/10/18 22:30 Urine Sodium 35 mmol/L 10/10/18 22:30 Urine Total Protein 152 mg/dL (5-11.8) H 10/10/18 22:30 Medications & Allergies - Medications Allergies/Adverse Reactions: Allergies No Known Allergies Allergy (Unverified 10/09/18 10:44) Home Medications: Home Medications Medication Instructions Recorded Confirmed Last Taken Type Carvedilol [Coreg] 3.125 mg PO BID 10/09/18 10/09/[address] [DepaKOTE DR] 500 mg PO BID 10/09/18 10/09/18 Unknown History Ferrous Sulfate [Feosol] 325 mg PO QDAY 10/09/18 10/09/18 Unknown History Furosemide [Lasix] 80 mg PO DAILY 10/09/18 10/09/18 Unknown History Gabapentin [Neurontin] 300 mg PO Q8HR 10/09/18 10/09/18 Unknown History ISOSORBIDE MONOnitrate [Imdur ER] 30 mg PO DAILY 10/09/18 10/09/18 Unknown History Insulin Glargine,Hum.rec.anlog 40 units SQ QHS 10/09/18 10/09/18 Unknown History [Lantus] Magnesium Oxide [Mag-Ox] 400 mg PO DAILY 10/09/18 10/09/18 Unknown History Simvastatin (Nf) [Zocor TAB] 20 mg PO QHS 10/09/18 10/09/18 Unknown History Sulfamethoxazole/Trimethoprim 1 each PO BID 10/09/18 10/09/18 Unknown History [Bactrim DS TAB] glipiZIDE [Glipizide] 10 mg PO DAILY 10/09/18 10/09/18 Unknown History hydrALAZINE [Apresoline TAB] 100 mg PO BID 10/09/18 10/09/18 Unknown History risperiDONE [RisperDAL] 1 mg PO QHS 10/09/18 10/09/18 Unknown History Active Medications: Generic Name Dose Route Start Last Admin Trade Name Freq PRN Reason Stop Dose Admin Albumin Human 25 gm 10/11/18 09:35 Alburx 25% (Albumin) IV JUDE PRN Hypotension Aspirin 325 mg 10/10/18 10:00 10/25/18 09:46 Aspirin PO 325 mg QDAY JAMIL Administration Carvedilol 6.25 mg 10/14/18 22:00 10/25/18 09:46 Coreg PO 6.25 mg BID JAMIL Administration Dextrose 50 ml 10/10/18 11:03 10/16/18 07:14 D50w (25gm) Syringe IV 50 ml PRN PRN Administration Hypoglycemia Famotidine 20 mg 10/10/18 12:00 10/25/18 09:46 Pepcid PO 20 mg DAILY JAMIL Administration Ferrous Sulfate 325 mg 10/10/18 10:00 10/25/18 09:46 Feosol PO 325 mg QDAY JAMIL Administration Furosemide 80 mg 10/23/18 10:00 10/25/18 09:46 Lasix PO 80 mg BID JAMIL Administration Gabapentin 300 mg 10/15/18 10:00 10/25/18 09:46 Neurontin PO 300 mg DAILY JAMIL Administration Heparin Sodium (Porcine) 5,000 unit 10/11/18 15:00 10/25/18 06:14 Heparin SUB-Q 5,000 unit Q8HR JAMIL Administration Hydralazine HCl 20 mg 10/13/18 18:43 10/24/18 01:11 Apresoline IV 20 mg Q4HR PRN Administration Increased Blood Pressure Insulin Human Isoph/Insulin Regular 8 unit 10/24/18 17:00 10/25/18 09:44 Humulin 70/30 SUB-Q 8 unit BIDDIAB JAMIL Administration Insulin Human Regular 0 units 10/10/18 11:30 10/25/18 09:44 Humulin R SUB-Q 3 units ACHS JAMIL Administration Protocol Magnesium Hydroxide 30 ml 10/17/18 14:28 10/19/18 10:58 Milk Of Magnesia PO 30 ml QDAY PRN Administration Constipation Metolazone 5 mg 10/23/18 22:00 10/24/18 18:26 Zaroxolyn PO 5 mg DAILY@1730 [facility] Administration Oxycodone/Acetaminophen 1 tab 10/19/18 10:18 10/24/18 21:41 Percocet 5/325 PO 1 tab Q8H PRN Administration Pain, Moderate (4-6) Pravastatin Sodium 40 mg 10/09/18 22:00 10/24/18 21:38 Pravachol PO 40 mg QHS JAMIL Administration Risperidone 1 mg 10/09/18 22:00 10/24/18 21:39 Risperdal PO 1 mg QHS JAMIL Administration Sodium Chloride 10 ml 10/09/18 13:00 10/25/18 09:56 Sodium Chloride Flush Syringe 10 Ml IV 10 ml BID JAMIL Administration Sodium Chloride 10 ml 10/09/18 13:00 Sodium Chloride Flush Syringe 10 Ml IV PRN PRN LINE FLUSH Sodium Polystyrene Sulfonate 30 gm 10/21/18 14:00 10/23/18 13:38 Kionex PO 30 gm MoWeFr JAMIL Administration
--- NOTE | 2018-10-25 17:45 | Progress Note ---
Assessment and Plan Assessment and plan: --Hyperkalemia; potassium 5.6, Kayexalate, closely monitor electrolytes --Acute kidney injury; worsening creatinine levels Management per nephrology --Uncontrolled DM : Continue 70/30 , SSI, Accu-Cheks, ADA diet, -- Anemia: Chronic disease ;transfused 2 unit PRBC Patient's hemoglobin improved to 7.5, Closely monitor H&H --Altered mental status/Acute encephalopathy ; present on admission head CT with no acute process, baseline --Bilateral moderate pleural effusion; Spontaneous improvement of right pleural effusion from 300 mL- 31 mL Left pleural effusion decreased from 421 mL-112 mL No indication for thoracentesis, continue hemodialysis --Hypotension- s/p vasopressor , currently hypertensive. --NSTEMI type II- s/p heparin drip, obtained 2d echo, cardiology evaluated and signed off Outpatient follow-up for further evaluation and management --Acute on chronic systolic CHF: EF 35-40%, cont aspirin/statin, monitor daily wt, ins/os, restrict fluid --Sinus bradycardia -resolved, avoid beta blockers --HTN, continue current antihypertensives and when necessary medications --HLP, cont statin -- h/o psych disorder, supportive care, discussed with psych cleared to d/c home,no need to return to psych facility --Extensive scrotal swelling, ultrasound; thick skin, testis and epididymis normal --DC planning per case management. Patient is stable to be discharged Disposition per nephrology and case management History Interval history: Patient seen and examined medical records reviewed Patient feels slightly better, anxious to go home Hyperkalemia this morning, and mild elevation of creatinine Alert awake oriented,Vital signs reviewed Hospitalist Physical - Constitutional Vitals: Temp Pulse Resp BP Pulse Ox 98.1 F 62 20 133/73 98 10/25/18 12:07 10/25/18 12:07 10/25/18 12:07 10/25/18 12:07 10/25/18 12:07 General appearance: Present: no acute distress, well-nourished - EENT Eyes: Present: PERRL, EOM intact - Neck Neck: Present: supple, normal ROM - Respiratory Respiratory effort: normal Respiratory: bilateral: diminished, rales, negative: rhonchi, wheezing - Cardiovascular Rhythm: regular Heart Sounds: Present: S1 & S2 - Extremities Extremities: no ischemia, No edema - Abdominal General gastrointestinal: soft, non-tender, non-distended, normal bowel sounds - Integumentary Integumentary: Present: clear, warm - Psychiatric Psychiatric: appropriate mood/affect, cooperative - Neurologic Neurologic: CNII-XII intact, moves all extremities Results - Labs CBC & Chem 7: 10/25/18 05:41 10/25/18 05:41 Labs: Laboratory Last Values WBC 12.9 K/mm3 (4.5-11.0) H 10/25/18 05:41 RBC 2.83 M/mm3 (3.65-5.03) L 10/25/18 05:41 Hgb 7.9 gm/dl (11.8-15.2) L 10/25/18 05:41 Hct 24.7 % (35.5-45.6) L 10/25/18 05:41 MCV 87 fl (84-94) 10/25/18 05:41 MCH 28 pg (28-32) 10/25/18 05:41 MCHC 32 % (32-34) 10/25/18 05:41 RDW 18.1 % (13.2-15.2) H 10/25/18 05:41 Plt Count 270 K/mm3 (140-440) 10/25/18 05:41 Lymph % (Auto) 15.4 % (13.4-35.0) 10/22/18 05:25 [place] % (Auto) 14.8 % (0.0-7.3) H 10/22/18 05:25 Eos % (Auto) 2.1 % (0.0-4.3) 10/22/18 05:25 Baso % (Auto) 0.1 % (0.0-1.8) 10/22/18 05:25 Lymph # 1.2 K/mm3 (1.2-5.4) 10/22/18 05:25 [place] # 1.2 K/mm3 (0.0-0.8) H 10/22/18 05:25 Eos # 0.2 K/mm3 (0.0-0.4) 10/22/18 05:25 Baso # 0.0 K/mm3 (0.0-0.1) 10/22/18 05:25 Add Manual Diff Complete 10/24/18 04:13 Total Counted 100 10/24/18 04:13 Seg Neutrophils % 67.6 % (40.0-70.0) 10/22/18 05:25 Seg Neuts % (Manual) 77.0 % (40.0-70.0) H 10/24/18 04:13 Band Neutrophils % 0 % 10/24/18 04:13 Lymphocytes % (Manual) 12.0 % (13.4-35.0) L 10/24/18 04:13 Reactive Lymphs % (Man) 0 % 10/24/18 04:13 Monocytes % (Manual) 7.0 % (0.0-7.3) 10/24/18 04:13 Eosinophils % (Manual) 2.0 % (0.0-4.3) 10/24/18 04:13 Basophils % (Manual) 0 % (0.0-1.8) 10/24/18 04:13 Metamyelocytes % 0 % 10/24/18 04:13 Myelocytes % 2.0 % 10/24/18 04:13 Promyelocytes % 0 % 10/24/18 04:13 Blast Cells % 0 % 10/24/18 04:13 Nucleated RBC % Not Reportable 10/24/18 04:13 Seg Neutrophils # 5.4 K/mm3 (1.8-7.7) 10/22/18 05:25 Seg Neutrophils # Man 7.5 K/mm3 (1.8-7.7) 10/24/18 04:13 Band Neutrophils # 0.0 K/mm3 10/24/18 04:13 Lymphocytes # (Manual) 1.2 K/mm3 (1.2-5.4) 10/24/18 04:13 Abs React Lymphs (Man) 0.0 K/mm3 10/24/18 04:13 Monocytes # (Manual) 0.7 K/mm3 (0.0-0.8) 10/24/18 04:13 Eosinophils # (Manual) 0.2 K/mm3 (0.0-0.4) 10/24/18 04:13 Basophils # (Manual) 0.0 K/mm3 (0.0-0.1) 10/24/18 04:13 Metamyelocytes # 0.0 K/mm3 10/24/18 04:13 Myelocytes # 0.2 K/mm3 10/24/18 04:13 Promyelocytes # 0.0 K/mm3 10/24/18 04:13 Blast Cells # 0.0 K/mm3 10/24/18 04:13 WBC Morphology Not Reportable 10/24/18 04:13 Hypersegmented Neuts Not Reportable 10/24/18 04:13 Hyposegmented Neuts Not Reportable 10/24/18 04:13 Hypogranular Neuts Not Reportable 10/24/18 04:13 Smudge Cells Not Reportable 10/24/18 04:13 Toxic Granulation Not Reportable 10/24/18 04:13 Toxic Vacuolation Not Reportable 10/24/18 04:13 Dohle Bodies Not Reportable 10/24/18 04:13 Pelger-Huet Anomaly Not Reportable 10/24/18 04:13 Wong Rods Not Reportable 10/24/18 04:13 Platelet Estimate Consistent w auto 10/24/18 04:13 Clumped Platelets Not Reportable 10/24/18 04:13 Plt Clumps, EDTA Not Reportable 10/24/18 04:13 Large Platelets Not Reportable 10/24/18 04:13 Giant Platelets Not Reportable 10/24/18 04:13 Platelet Satelliting Not Reportable 10/24/18 04:13 Plt Morphology Comment Not Reportable 10/24/18 04:13 RBC Morphology Not Reportable 10/24/18 04:13 Dimorphic RBCs Not Reportable 10/24/18 04:13 Polychromasia 1+ 10/24/18 04:13 Hypochromasia Not Reportable 10/24/18 04:13 Poikilocytosis Not Reportable 10/24/18 04:13 Anisocytosis 1+ 10/24/18 04:13 Microcytosis Few 10/24/18 04:13 Macrocytosis Not Reportable 10/24/18 04:13 Spherocytes Not Reportable 10/24/18 04:13 Pappenheimer Bodies Not Reportable 10/24/18 04:13 Sickle Cells Not Reportable 10/24/18 04:13 Target Cells Not Reportable 10/24/18 04:13 Tear Drop Cells Not Reportable 10/24/18 04:13 Ovalocytes Not Reportable 10/24/18 04:13 Helmet Cells Not Reportable 10/24/18 04:13 Fernandez-Vina Bodies Not Reportable 10/24/18 04:13 Bosler Rings Not Reportable 10/24/18 04:13 [place] Cells Not Reportable 10/24/18 04:13 Bite Cells Not Reportable 10/24/18 04:13 Crenated Cell Not Reportable 10/24/18 04:13 Elliptocytes Not Reportable 10/24/18 04:13 Acanthocytes (Spur) Not Reportable 10/24/18 04:13 Rouleaux Not Reportable 10/24/18 04:13 Hemoglobin C Crystals Not Reportable 10/24/18 04:13 Schistocytes Not Reportable 10/24/18 04:13 Malaria parasites Not Reportable 10/24/18 04:13 Domenic Bodies Not Reportable 10/24/18 04:13 Hem Pathologist Commnt No 10/24/18 04:13 PT 14.0 Sec. (12.2-14.9) 10/17/18 Unknown INR 1.04 (0.87-1.13) 10/17/18 Unknown APTT 42.4 Sec. (24.2-36.6) H 10/09/18 14:25 D-Dimer 927.57 ng/mlDDU (0-234) H 10/10/18 13:36 Heparin Anti-Xa Level 0.49 U.I./ml (0.3-0.7) 10/11/18 04:31 POC ABG pH 7.359 (7.35-7.45) 10/15/18 13:21 POC ABG pCO2 48.4 (35-45) H 10/15/18 13:21 POC ABG pO2 77 (80-105) L 10/15/18 13:21 POC ABG HCO3 27.3 10/15/18 13:21 POC ABG Total CO2 29 10/15/18 13:21 POC ABG O2 Sat 95 10/15/18 13:21 POC ABG Base Excess 2 10/15/18 13:21 FiO2 21 % 10/15/18 13:21 Sodium 138 mmol/L (137-145) 10/25/18 05:41 Potassium 5.7 mmol/L (3.6-5.0) H 10/25/18 05:41 Chloride 98.8 mmol/L (98-107) 10/25/18 05:41 Carbon Dioxide 29 mmol/L (22-30) 10/25/18 05:41 Anion Gap 16 mmol/L 10/25/18 05:41 BUN 62 mg/dL (9-20) H 10/25/18 05:41 Creatinine 2.2 mg/dL (0.8-1.5) H 10/25/18 05:41 Estimated GFR 39 ml/min 10/25/18 05:41 BUN/Creatinine Ratio 28 % 10/25/18 05:41 Glucose 135 mg/dL (75-100) H 10/25/18 05:41 POC Glucose 199 (70-105) H 10/25/18 16:46 Hemoglobin A1c 8.2 % (4-6) H 10/10/18 05:00 Lactic Acid 0.60 mmol/L (0.7-2.0) L 10/10/18 13:36 Calcium 8.5 mg/dL (8.4-10.2) 10/25/18 05:41 Phosphorus 4.70 mg/dL (2.5-4.5) H 10/21/18 06:26 Magnesium 2.20 mg/dL (1.7-2.3) 10/21/18 06:26 Total Bilirubin < 0.20 mg/dL (0.1-1.2) 10/11/18 20:45 AST 18 units/L (5-40) 10/21/18 06:26 ALT 29 units/L (7-56) 10/21/18 06:26 Alkaline Phosphatase 258 units/L (35-129) H 10/21/18 06:26 Total Creatine Kinase 481 units/L (55-170) H 10/09/18 11:22 CK-MB (CK-2) 20.5 ng/mL (0.0-4.0) H 10/09/18 11:22 CK-MB (CK-2) Rel Index 4.2 (0-4) H 10/09/18 11:22 Troponin T 0.139 ng/mL (0.00-0.029) H* 10/09/18 20:56 C-Reactive Protein 0.90 mg/dL (0.00-1.30) 10/10/18 13:36 NT-Pro-B Natriuret Pep 2963 pg/mL (0-450) H 10/09/18 11:22 Serum Total Protein 5.6 g/dL (6.1-8.1) L 10/15/18 05:39 Total Protein 6.2 g/dL (6.3-8.2) L 10/11/18 20:45 Albumin 2.5 g/dL (3.8-4.8) L 10/15/18 05:39 Albumin/Globulin Ratio 0.9 % 10/11/18 20:45 Udrwb-6-Lhwrefwfn 0.4 g/dL (0.2-0.3) H 10/15/18 05:39 Ejgmu-8-Tyetxdlsn 0.7 g/dL (0.5-0.9) 10/15/18 05:39 Beta Globulins 0.4 g/dL (0.2-0.5) 10/15/18 05:39 Gamma Globulins 1.2 g/dL (0.8-1.7) 10/15/18 05:39 Abnorm Protein Band 1 see below 10/15/18 05:39 PEP Interpretation see below H 10/15/18 05:39 Triglycerides 24 mg/dL (2-149) 10/09/18 11:22 Cholesterol 115 mg/dL (50-199) 10/09/18 11:22 LDL Cholesterol Direct 49 mg/dL (50-130) L 10/09/18 11:22 HDL Cholesterol 73 mg/dL (40-59) H 10/09/18 11:22 Cholesterol/HDL Ratio 1.57 % 10/09/18 11:22 Amylase 50 units/L (27-131) 10/21/18 06:26 Lipase 13 units/L (13-60) 10/21/18 06:26 PTH Intact 152.8 pg/mL (15-65) H 10/17/18 05:22 Urine Color Tamie (Yellow) 10/10/18 22:30 Urine Turbidity Clear (Clear) 10/10/18 22:30 Urine pH 5.0 (5.0-7.0) 10/10/18 22:30 Ur Specific [place] 1.016 (1.003-1.030) 10/10/18 22:30 Urine Protein 100 mg/dl mg/dL (Negative) 10/10/18 22:30 Urine Glucose (UA) 50 mg/dL (Negative) 10/10/18 22:30 Urine Ketones Neg mg/dL (Negative) 10/10/18 22:30 Urine Blood Neg (Negative) 10/10/18 22:30 Urine Nitrite Neg (Negative) 10/10/18 22:30 Urine Bilirubin Neg (Negative) 10/10/18 22:30 Urine Urobilinogen 4.0 mg/dL (<2.0) 10/10/18 22:30 Ur Leukocyte Esterase Tr (Negative) 10/10/18 22:30 Urine WBC (Auto) 2.0 /HPF (0.0-6.0) 10/10/18 22:30 Urine RBC (Auto) 5.0 /HPF (0.0-6.0) 10/10/18 22:30 U Epithel Cells (Auto) < 1.0 /HPF (0-13.0) 10/10/18 22:30 Urine Bacteria (Auto) 1+ /HPF (Negative) 10/10/18 22:30 Hyaline Casts 1 /LPF 10/10/18 22:30 Urine Mucus Few /HPF 10/10/18 22:30 Urine Creatinine 118.6 mg/dL (0.1-20.0) H 10/10/18 22:30 Protein/Creatinin Ratio 1.28 10/10/18 22:30 Urine Sodium 35 mmol/L 10/10/18 22:30 Urine Total Protein 152 mg/dL (5-11.8) H 10/10/18 22:30 Valproic Acid 46.4 ug/mL (50-100) L 10/21/18 08:52 BROWN Screen Negative (Negative) 10/15/18 05:39 Proteinase 3 (PR3) Ab <1.0 AI (<1.0) 10/15/18 05:39 Myeloperoxidase Ab <1.0 AI (<1.0) 10/15/18 05:39 Complement C3 129 mg/dL (82-185) 10/15/18 05:39 Complement C4 34 mg/dL (15-53) 10/15/18 05:39 Hepatitis A IgM Ab Non-reactive (NonReactive) 10/11/18 13:24 Hep Bs Antigen Non-reactive (Negative) 10/11/18 13:24 Hep B Core IgM Ab Non-reactive (NonReactive) 10/11/18 13:24 Hepatitis C Antibody Non-reactive (NonReactive) 10/11/18 13:24 Blood Type AB POSITIVE 10/22/18 10:31 Antibody Screen Negative 10/22/18 10:31 Crossmatch See Detail 10/22/18 10:31 Nutrition/Malnutrition Assess - Dietary Evaluation Nutrition/Malnutrition Findings: Nutrition Notes Start: 10/16/18 16:17 Freq: Status: Active Protocol: Document 10/25/18 16:14 RM (Rec: 10/25/18 16:28 RM [id number]) Nutrition Notes Initial or Follow up Reassessment Current Diagnosis Acute Kidney Injury Diabetes Hypertension Heart Failure Other Pertinent Diagnosis Encephalopathy, R leg diabetic PU, AMS Current Diet Cardiac/Renal/Consistent Carb w/Nepro Butter Pecan BID Labs/Tests K 5.7 Pertinent Medications Lasix Height 6 ft 2 in Weight 116.7 kg [place] Body Weight (kg) 190.0 BMI 33.0 Weight change and time frame wt changed noted Subjective/Other Information Pt stated that his appetite is good but he eats only half of his meals d/t food preferences. Noted preferences . Also stated he does not like the Nepro and does not drink it. Percent of energy/protein needs met: 54%/38% Burn Absent Trauma Absent #1 Nutrition Diagnosis Inadequate oral intake As Evidenced by Signs and Symptoms pt meeting 54% of calorie needs and 38% of protein needs Diagnosis Progress(for reassessment Worsened documentation) Is patient on ventilator? No Is Patient Ambulatory and/or Out of Bed No REE-([place]-confined to bed) 2531.304 Kcal/Kg value to use for calculation 17 Approximate Energy Requirements Using 1984 kcal/Kg Calculation Used for Recommendations Kcal/kg Additional Notes Protein Needs: 103-134g (1-1. 3g/kg, 103kg adjBW) Fluid Needs: 1ml/kcal Nutrition Intervention Change Diet Order: Continue current Add Supplement/Snack (indicate name/kcal D/C Nepro /protein ) Goal #1 Meet at least 75% of calorie and protein needs via PO intakes Anticipated Discharge Needs: Cardiac/Consistent Carb/Renal Follow-Up By: 10/29/18 Additional Comments Follow for PO intakes
[2018-10-25] MEDS: KIONEX PO SCH (19:17)
[2018-10-25] MEDS: ZAROXOLYN PO SCH (19:20)
[2018-10-25] MEDS: PRAVACHOL PO SCH ×2 (23:00)
[2018-10-25] MEDS: RisperDAL PO SCH ×2 (23:00)
[2018-10-25] MEDS: PERCOCET 5/325 PO PRN (23:48)
[2018-10-26] MEDS: HEPARIN SUB-Q SCH ×3 (06:00→23:07)
[2018-10-26 06:09] LABS: Basophils % (Auto) 0.4 % (0.0-1.8); Eosinophils # (Auto) 0.3 K/mm3 (0.0-0.4); Eosinophils % (Auto) 2.8 % (0.0-4.3); Hematocrit 24.7 % (35.5-45.6); Hemoglobin 8.1 gm/dl (11.8-15.2); Lymphocytes # (Auto) 1.2 K/mm3 (1.2-5.4); Lymphocytes % (Auto) 11.3 % (13.4-35.0); Mean Corpuscular HGB Conc 33 % (32-34); Mean Corpuscular Volume 88 fl (84-94); Monocytes # (Auto) 1.7 K/mm3 (0.0-0.8); Monocytes % (Auto) 15.8 % (0.0-7.3); Platelet Count 292 K/mm3 (140-440); Red Blood Count 2.81 M/mm3 (3.65-5.03); Red Cell Distribution Width 18.3 % (13.2-15.2)
[2018-10-26 06:25] LABS: Calcium 8.8 mg/dL (8.4-10.2)
[2018-10-26] MEDS: HumuLIN R SUB-Q SCH ×4 (08:29→23:05)
[2018-10-26] MEDS ORDERED: KIONEX PO ONE (09:06)
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
[2018-10-26] MEDS: ASPIRIN PO SCH (09:31)
[2018-10-26] MEDS: LASIX PO SCH (09:31)
[2018-10-26] MEDS: FEOSOL PO SCH ×2 (09:32→09:35)
[2018-10-26] MEDS: NEURONTIN PO SCH ×2 (09:32→11:16)
[2018-10-26] MEDS: PEPCID PO SCH (09:32)
[2018-10-26] MEDS: COREG PO SCH ×2 (09:32→23:07)
[2018-10-26] MEDS: SODIUM CHLORIDE FLUSH SYRINGE 10 ML IV SCH ×2 (09:34→23:07)
[2018-10-26] MEDS: PERCOCET 5/325 PO PRN (10:51)
--- NOTE | 2018-10-26 11:38 | Progress Note ---
Assessment and Plan Severe Sepsis syndrome. Shock (cardiogenic versus septic) Acute encephalopathy. Possible seizures. History of diabetes CMOP Leukopenia. Anemia that is normocytic. Acute hypercapnic respiratory acidosis. Hyperkalemia. Acute kidney injury. Non-ST elevation myocardial infarction. Hypoglycemia. Possible peripheral vascular disease. Obesity. - VQ scan intermediate prob but clinically he is improved - continue kayexalate for hyperkalemia - continue azotemia management per nephrology otherwise - continue DVT prophylaxis with heparin 5000U sq q8h - lower extremity dopplers negative - azotemia per nephrology; numbers improving - prn suppelemntal oxygen to keep sats > 90% - continue risperdone - PT/OT as tolerated - mobility protocol for pressure ulcer prophylaxis - aspiration precautions - prn bronchodilators with pulmonary hygiene per RT - continue stress ulcer prophylaxis - s/p empiric Antibiotics course (Levaquin) - continue Mobility protocol for pressure ulcer prevention - continue other care per attending / other consultants .... re-evaluate in am & prn FULL CODE STATUS Subjective Date of service: 10/26/18 Principal diagnosis: Severe Sepsis with Shock; Acute encephalopathy; MAXIMO; Diabetes II; CMOP Interval history: Patient is seen today for: Severe Sepsis syndrome; Shock (cardiogenic versus septic); Acute encephalopathy; Possible seizures; History of diabetes; CMOP Seen and examined at bedside; 24hour events reviewed; nursing and respiratory care staff consulted; no adverse overnight events reported to me; resting peacefully in bed; hyperkalemia persistent; remains on supplemental oxygen; no N/V/F/C; no new issues otherwise Objective Vital Signs - 12hr 10/25/18 10/26/18 10/26/18 23:50 06:06 09:32 Temperature 97.0 F L Pulse Rate 72 67 68 Respiratory 18 18 Rate Blood Pressure 179/94 155/87 119/77 O2 Sat by Pulse 96 100 Oximetry Constitutional: no acute distress, alert, other (middle aged AAM, normocephalic and atraumatic with normal respiratory effort) Eyes: non-icteric ENT: oropharynx moist Neck: supple, no lymphadenopathy, no JVD Effort: normal Ascultation: Bilateral: diminished breath sounds, rhonchi (bases) Percussion: Bilateral: not dull Cardiovascular: regular rate and rhythm Gastrointestinal: normoactive bowel sounds, soft, non-tender, non-distended Integumentary: rash (feet) Extremities: no cyanosis, pulses normal, no ischemia or petechiae, edema (trace to 1+) Neurologic: normal mental status, non-focal exam, pupils equal and round, motor strength normal and, other (sensory numbness to feet) Psychiatric: mood appropriate, affect normal, other CBC and BMP: 10/27/18 05:14 10/27/18 05:14 ABG, PT/INR, D-dimer: ABG POC ABG pH 7.359 (7.35-7.45) 10/15/18 13:21 POC ABG pCO2 48.4 (35-45) H 10/15/18 13:21 POC ABG pO2 77 (80-105) L 10/15/18 13:21 POC ABG HCO3 27.3 10/15/18 13:21 POC ABG Total CO2 29 10/15/18 13:21 POC ABG O2 Sat 95 10/15/18 13:21 PT/INR, D-dimer PT 14.0 Sec. (12.2-14.9) 10/17/18 Unknown INR 1.04 (0.87-1.13) 10/17/18 Unknown D-Dimer 927.57 ng/mlDDU (0-234) H 10/10/18 13:36 Abnormal lab findings: Abnormal Labs 10/09/18 10/09/18 10/09/18 11:22 11:22 11:22 WBC 3.3 L RBC 3.03 L Hgb 8.4 L Hct 25.8 L MCH RDW 18.7 H Lymph % (Auto) [place] % (Auto) 12.1 H Eos % (Auto) 4.6 H Lymph # 0.5 L [place] # Seg Neutrophils % Seg Neuts % (Manual) Lymphocytes % (Manual) Lymphocytes # (Manual) APTT 42.8 H D-Dimer Heparin Anti-Xa Level POC ABG pH POC ABG pCO2 POC ABG pO2 Sodium Potassium 5.2 H Chloride 108.2 H Carbon Dioxide BUN 49 H Creatinine 1.9 H Glucose 153 H POC Glucose Hemoglobin A1c Lactic Acid Calcium Phosphorus Magnesium Alkaline Phosphatase Total Creatine Kinase 481 H CK-MB (CK-2) 20.5 H CK-MB (CK-2) Rel Index 4.2 H Troponin T 0.153 H* NT-Pro-B Natriuret Pep 2963 H Serum Total Protein Total Protein Albumin Yxndg-3-Ebijpsjht PEP Interpretation LDL Cholesterol Direct 49 L HDL Cholesterol 73 H PTH Intact Urine Creatinine Urine Total Protein Valproic Acid Crossmatch 10/09/18 10/09/18 10/09/18 13:43 14:25 14:25 WBC RBC Hgb 8.2 L Hct 26.2 L MCH RDW Lymph % (Auto) [place] % (Auto) Eos % (Auto) Lymph # [place] # Seg Neutrophils % Seg Neuts % (Manual) Lymphocytes % (Manual) Lymphocytes # (Manual) APTT 42.4 H D-Dimer Heparin Anti-Xa Level POC ABG pH POC ABG pCO2 POC ABG pO2 Sodium Potassium Chloride Carbon Dioxide BUN Creatinine Glucose POC Glucose 167 H Hemoglobin A1c Lactic Acid Calcium Phosphorus Magnesium Alkaline Phosphatase Total Creatine Kinase CK-MB (CK-2) CK-MB (CK-2) Rel Index Troponin T NT-Pro-B Natriuret Pep Serum Total Protein Total Protein Albumin Cdozc-8-Erafvnyhm PEP Interpretation LDL Cholesterol Direct HDL Cholesterol PTH Intact Urine Creatinine Urine Total Protein Valproic Acid Crossmatch 10/09/18 10/09/18 10/09/18 17:28 20:56 21:23 WBC RBC Hgb Hct MCH RDW Lymph % (Auto) [place] % (Auto) Eos % (Auto) Lymph # [place] # Seg Neutrophils % Seg Neuts % (Manual) Lymphocytes % (Manual) Lymphocytes # (Manual) APTT D-Dimer Heparin Anti-Xa Level 0.28 L POC ABG pH POC ABG pCO2 POC ABG pO2 Sodium Potassium Chloride Carbon Dioxide BUN Creatinine Glucose POC Glucose Hemoglobin A1c Lactic Acid Calcium Phosphorus Magnesium Alkaline Phosphatase Total Creatine Kinase CK-MB (CK-2) CK-MB (CK-2) Rel Index Troponin T 0.136 H* 0.139 H* NT-Pro-B Natriuret Pep Serum Total Protein Total Protein Albumin Lkbtc-0-Uwqprknni PEP Interpretation LDL Cholesterol Direct HDL Cholesterol PTH Intact Urine Creatinine Urine Total Protein Valproic Acid Crossmatch 10/10/18 10/10/18 10/10/18 00:10 05:00 05:00 WBC 3.3 L RBC 2.99 L Hgb 8.2 L Hct 25.9 L MCH 27 L RDW 19.2 H Lymph % (Auto) [place] % (Auto) 13.2 H Eos % (Auto) 5.8 H Lymph # 0.5 L [place] # Seg Neutrophils % Seg Neuts % (Manual) Lymphocytes % (Manual) Lymphocytes # (Manual) APTT D-Dimer Heparin Anti-Xa Level POC ABG pH POC ABG pCO2 POC ABG pO2 Sodium Potassium 5.6 H Chloride 110.8 H Carbon Dioxide BUN 50 H Creatinine 2.2 H Glucose 52 L POC Glucose 60 L Hemoglobin A1c Lactic Acid Calcium 8.1 L Phosphorus Magnesium Alkaline Phosphatase Total Creatine Kinase CK-MB (CK-2) CK-MB (CK-2) Rel Index Troponin T NT-Pro-B Natriuret Pep Serum Total Protein Total Protein Albumin Qopum-2-Wgeukivhg PEP Interpretation LDL Cholesterol Direct HDL Cholesterol PTH Intact Urine Creatinine Urine Total Protein Valproic Acid Crossmatch 10/10/18 10/10/18 10/10/18 05:00 06:11 11:30 WBC RBC Hgb Hct MCH RDW Lymph % (Auto) [place] % (Auto) Eos % (Auto) Lymph # [place] # Seg Neutrophils % Seg Neuts % (Manual) Lymphocytes % (Manual) Lymphocytes # (Manual) APTT D-Dimer Heparin Anti-Xa Level POC ABG pH POC ABG pCO2 POC ABG pO2 Sodium Potassium Chloride Carbon Dioxide BUN Creatinine Glucose POC Glucose 57 L 48 L Hemoglobin A1c 8.2 H Lactic Acid Calcium Phosphorus Magnesium Alkaline Phosphatase Total Creatine Kinase CK-MB (CK-2) CK-MB (CK-2) Rel Index Troponin T NT-Pro-B Natriuret Pep Serum Total Protein Total Protein Albumin Oagua-5-Sxqmcfcip PEP Interpretation LDL Cholesterol Direct HDL Cholesterol PTH Intact Urine Creatinine Urine Total Protein Valproic Acid Crossmatch 10/10/18 10/10/18 10/10/18 12:22 13:36 13:36 WBC RBC Hgb Hct MCH RDW Lymph % (Auto) [place] % (Auto) Eos % (Auto) Lymph # [place] # Seg Neutrophils % Seg Neuts % (Manual) Lymphocytes % (Manual) Lymphocytes # (Manual) APTT D-Dimer 927.57 H Heparin Anti-Xa Level POC ABG pH 7.286 L POC ABG pCO2 47.3 H POC ABG pO2 65 L Sodium Potassium Chloride Carbon Dioxide BUN Creatinine Glucose POC Glucose Hemoglobin A1c Lactic Acid 0.60 L Calcium Phosphorus Magnesium Alkaline Phosphatase Total Creatine Kinase CK-MB (CK-2) CK-MB (CK-2) Rel Index Troponin T NT-Pro-B Natriuret Pep Serum Total Protein Total Protein Albumin Znikh-7-Dsrfygipm PEP Interpretation LDL Cholesterol Direct HDL Cholesterol PTH Intact Urine Creatinine Urine Total Protein Valproic Acid Crossmatch 10/10/18 10/10/18 10/10/18 16:42 21:12 22:30 WBC RBC Hgb Hct MCH RDW Lymph % (Auto) [place] % (Auto) Eos % (Auto) Lymph # [place] # Seg Neutrophils % Seg Neuts % (Manual) Lymphocytes % (Manual) Lymphocytes # (Manual) APTT D-Dimer Heparin Anti-Xa Level POC ABG pH POC ABG pCO2 POC ABG pO2 Sodium Potassium Chloride Carbon Dioxide BUN Creatinine Glucose POC Glucose 122 H 119 H Hemoglobin A1c Lactic Acid Calcium Phosphorus Magnesium Alkaline Phosphatase Total Creatine Kinase CK-MB (CK-2) CK-MB (CK-2) Rel Index Troponin T NT-Pro-B Natriuret Pep Serum Total Protein Total Protein Albumin Dwjyd-2-Oawfljurl PEP Interpretation LDL Cholesterol Direct HDL Cholesterol PTH Intact Urine Creatinine 118.6 H Urine Total Protein 152 H Valproic Acid Crossmatch 10/11/18 10/11/18 10/11/18 04:31 04:31 13:15 WBC RBC Hgb 8.7 L Hct 27.9 L MCH RDW Lymph % (Auto) [place] % (Auto) Eos % (Auto) Lymph # [place] # Seg Neutrophils % Seg Neuts % (Manual) Lymphocytes % (Manual) Lymphocytes # (Manual) APTT D-Dimer Heparin Anti-Xa Level POC ABG pH POC ABG pCO2 POC ABG pO2 Sodium Potassium 6.6 H* 6.4 H* Chloride Carbon Dioxide BUN 55 H Creatinine 2.9 H Glucose POC Glucose Hemoglobin A1c Lactic Acid Calcium 7.6 L Phosphorus Magnesium Alkaline Phosphatase Total Creatine Kinase CK-MB (CK-2) CK-MB (CK-2) Rel Index Troponin T NT-Pro-B Natriuret Pep Serum Total Protein Total Protein Albumin Ptpjj-2-Fwqyeczwe PEP Interpretation LDL Cholesterol Direct HDL Cholesterol PTH Intact Urine Creatinine Urine Total Protein Valproic Acid Crossmatch 10/11/18 10/11/18 10/12/18 20:45 22:37 04:25 WBC RBC Hgb Hct MCH RDW Lymph % (Auto) [place] % (Auto) Eos % (Auto) Lymph # [place] # Seg Neutrophils % Seg Neuts % (Manual) Lymphocytes % (Manual) Lymphocytes # (Manual) APTT D-Dimer Heparin Anti-Xa Level POC ABG pH POC ABG pCO2 POC ABG pO2 Sodium Potassium Chloride Carbon Dioxide BUN 37 H 38 H Creatinine 2.4 H 2.3 H Glucose POC Glucose 117 H Hemoglobin A1c Lactic Acid Calcium 7.5 L 7.6 L Phosphorus Magnesium Alkaline Phosphatase 261 H Total Creatine Kinase CK-MB (CK-2) CK-MB (CK-2) Rel Index Troponin T NT-Pro-B Natriuret Pep Serum Total Protein Total Protein 6.2 L Albumin 3.0 L Mpbky-5-Cmjmqfhli PEP Interpretation LDL Cholesterol Direct HDL Cholesterol PTH Intact Urine Creatinine Urine Total Protein Valproic Acid Crossmatch 10/12/18 10/12/18 10/13/18 10:02 21:33 03:28 WBC RBC Hgb 7.6 L 7.7 L Hct 24.1 L 23.8 L MCH RDW Lymph % (Auto) [place] % (Auto) Eos % (Auto) Lymph # [place] # Seg Neutrophils % Seg Neuts % (Manual) Lymphocytes % (Manual) Lymphocytes # (Manual) APTT D-Dimer Heparin Anti-Xa Level POC ABG pH POC ABG pCO2 POC ABG pO2 Sodium Potassium Chloride Carbon Dioxide BUN Creatinine Glucose POC Glucose 109 H Hemoglobin A1c Lactic Acid Calcium Phosphorus Magnesium Alkaline Phosphatase Total Creatine Kinase CK-MB (CK-2) CK-MB (CK-2) Rel Index Troponin T NT-Pro-B Natriuret Pep Serum Total Protein Total Protein Albumin Njyet-3-Zzeyokeyt PEP Interpretation LDL Cholesterol Direct HDL Cholesterol PTH Intact Urine Creatinine Urine Total Protein Valproic Acid Crossmatch 10/13/18 10/13/18 10/13/18 03:28 08:27 15:04 WBC RBC Hgb Hct MCH RDW Lymph % (Auto) [place] % (Auto) Eos % (Auto) Lymph # [place] # Seg Neutrophils % Seg Neuts % (Manual) Lymphocytes % (Manual) Lymphocytes # (Manual) APTT D-Dimer Heparin Anti-Xa Level POC ABG pH POC ABG pCO2 POC ABG pO2 Sodium Potassium Chloride Carbon Dioxide BUN 38 H Creatinine 1.9 H Glucose POC Glucose 136 H 160 H Hemoglobin A1c Lactic Acid Calcium 8.3 L Phosphorus Magnesium Alkaline Phosphatase Total Creatine Kinase CK-MB (CK-2) CK-MB (CK-2) Rel Index Troponin T NT-Pro-B Natriuret Pep Serum Total Protein Total Protein Albumin Gxajh-4-Fqttfkqks PEP Interpretation LDL Cholesterol Direct HDL Cholesterol PTH Intact Urine Creatinine Urine Total Protein Valproic Acid Crossmatch 10/13/18 10/13/18 10/14/18 16:53 23:06 06:06 WBC RBC Hgb Hct MCH RDW Lymph % (Auto) [place] % (Auto) Eos % (Auto) Lymph # [place] # Seg Neutrophils % Seg Neuts % (Manual) Lymphocytes % (Manual) Lymphocytes # (Manual) APTT D-Dimer Heparin Anti-Xa Level POC ABG pH POC ABG pCO2 POC ABG pO2 Sodium Potassium Chloride 107.7 H Carbon Dioxide BUN 39 H Creatinine 1.8 H Glucose 116 H POC Glucose 161 H 213 H Hemoglobin A1c Lactic Acid Calcium Phosphorus Magnesium 2.40 H Alkaline Phosphatase Total Creatine Kinase CK-MB (CK-2) CK-MB (CK-2) Rel Index Troponin T NT-Pro-B Natriuret Pep Serum Total Protein Total Protein Albumin Ompwe-3-Voudhrrpu PEP Interpretation LDL Cholesterol Direct HDL Cholesterol PTH Intact Urine Creatinine Urine Total Protein Valproic Acid Crossmatch 10/14/18 10/14/18 10/14/18 06:34 11:01 13:50 WBC RBC Hgb 7.8 L Hct 24.8 L MCH RDW Lymph % (Auto) [place] % (Auto) Eos % (Auto) Lymph # [place] # Seg Neutrophils % Seg Neuts % (Manual) Lymphocytes % (Manual) Lymphocytes # (Manual) APTT D-Dimer Heparin Anti-Xa Level POC ABG pH POC ABG pCO2 POC ABG pO2 Sodium Potassium Chloride Carbon Dioxide BUN Creatinine Glucose POC Glucose 118 H 67 L Hemoglobin A1c Lactic Acid Calcium Phosphorus Magnesium Alkaline Phosphatase Total Creatine Kinase CK-MB (CK-2) CK-MB (CK-2) Rel Index Troponin T NT-Pro-B Natriuret Pep Serum Total Protein Total Protein Albumin Rartl-6-Akphmvmam PEP Interpretation LDL Cholesterol Direct HDL Cholesterol PTH Intact Urine Creatinine Urine Total Protein Valproic Acid Crossmatch 10/14/18 10/15/18 10/15/18 21:37 05:39 05:39 WBC RBC Hgb 7.6 L Hct 23.5 L MCH RDW Lymph % (Auto) [place] % (Auto) Eos % (Auto) Lymph # [place] # Seg Neutrophils % Seg Neuts % (Manual) Lymphocytes % (Manual) Lymphocytes # (Manual) APTT D-Dimer Heparin Anti-Xa Level POC ABG pH POC ABG pCO2 POC ABG pO2 Sodium Potassium Chloride Carbon Dioxide BUN Creatinine Glucose POC Glucose 125 H Hemoglobin A1c Lactic Acid Calcium Phosphorus Magnesium Alkaline Phosphatase Total Creatine Kinase CK-MB (CK-2) CK-MB (CK-2) Rel Index Troponin T NT-Pro-B Natriuret Pep Serum Total Protein 5.6 L Total Protein Albumin 2.5 L Gvqyf-5-Olueiogqu 0.4 H PEP Interpretation see below H LDL Cholesterol Direct HDL Cholesterol PTH Intact Urine Creatinine Urine Total Protein Valproic Acid Crossmatch 10/15/18 10/15/18 10/15/18 05:39 06:27 07:48 WBC RBC Hgb Hct MCH RDW Lymph % (Auto) [place] % (Auto) Eos % (Auto) Lymph # [place] # Seg Neutrophils % Seg Neuts % (Manual) Lymphocytes % (Manual) Lymphocytes # (Manual) APTT D-Dimer Heparin Anti-Xa Level POC ABG pH POC ABG pCO2 POC ABG pO2 Sodium Potassium Chloride Carbon Dioxide BUN 45 H Creatinine 2.1 H Glucose 59 L POC Glucose 46 L 65 L Hemoglobin A1c Lactic Acid Calcium 8.3 L Phosphorus Magnesium Alkaline Phosphatase Total Creatine Kinase CK-MB (CK-2) CK-MB (CK-2) Rel Index Troponin T NT-Pro-B Natriuret Pep Serum Total Protein Total Protein Albumin Kalhd-6-Qzhkvqltv PEP Interpretation LDL Cholesterol Direct HDL Cholesterol PTH Intact Urine Creatinine Urine Total Protein Valproic Acid Crossmatch 10/15/18 10/15/18 10/15/18 13:21 13:24 21:23 WBC RBC Hgb Hct MCH RDW Lymph % (Auto) [place] % (Auto) Eos % (Auto) Lymph # [place] # Seg Neutrophils % Seg Neuts % (Manual) Lymphocytes % (Manual) Lymphocytes # (Manual) APTT D-Dimer Heparin Anti-Xa Level POC ABG pH POC ABG pCO2 48.4 H POC ABG pO2 77 L Sodium Potassium Chloride Carbon Dioxide BUN Creatinine Glucose POC Glucose 106 H 160 H Hemoglobin A1c Lactic Acid Calcium Phosphorus Magnesium Alkaline Phosphatase Total Creatine Kinase CK-MB (CK-2) CK-MB (CK-2) Rel Index Troponin T NT-Pro-B Natriuret Pep Serum Total Protein Total Protein Albumin Bszwy-8-Xgavkkfuh PEP Interpretation LDL Cholesterol Direct HDL Cholesterol PTH Intact Urine Creatinine Urine Total Protein Valproic Acid Crossmatch 10/16/18 10/16/18 10/16/18 06:25 06:49 21:42 WBC RBC Hgb Hct MCH RDW Lymph % (Auto) [place] % (Auto) Eos % (Auto) Lymph # [place] # Seg Neutrophils % Seg Neuts % (Manual) Lymphocytes % (Manual) Lymphocytes # (Manual) APTT D-Dimer Heparin Anti-Xa Level POC ABG pH POC ABG pCO2 POC ABG pO2 Sodium Potassium Chloride 107.7 H Carbon Dioxide BUN 53 H Creatinine 2.2 H Glucose 61 L POC Glucose 51 L 153 H Hemoglobin A1c Lactic Acid Calcium Phosphorus Magnesium Alkaline Phosphatase Total Creatine Kinase CK-MB (CK-2) CK-MB (CK-2) Rel Index Troponin T NT-Pro-B Natriuret Pep Serum Total Protein Total Protein Albumin Mfghc-0-Qhwxvuihc PEP Interpretation LDL Cholesterol Direct HDL Cholesterol PTH Intact Urine Creatinine Urine Total Protein Valproic Acid Crossmatch 10/17/18 10/17/18 10/17/18 05:22 05:22 05:22 WBC RBC Hgb 7.6 L Hct 23.1 L MCH RDW Lymph % (Auto) [place] % (Auto) Eos % (Auto) Lymph # [place] # Seg Neutrophils % Seg Neuts % (Manual) Lymphocytes % (Manual) Lymphocytes # (Manual) APTT D-Dimer Heparin Anti-Xa Level POC ABG pH POC ABG pCO2 POC ABG pO2 Sodium Potassium Chloride Carbon Dioxide BUN 59 H Creatinine 2.2 H Glucose 111 H POC Glucose Hemoglobin A1c Lactic Acid Calcium Phosphorus Magnesium Alkaline Phosphatase Total Creatine Kinase CK-MB (CK-2) CK-MB (CK-2) Rel Index Troponin T NT-Pro-B Natriuret Pep Serum Total Protein Total Protein Albumin Cvknd-0-Qqyvzajuk PEP Interpretation LDL Cholesterol Direct HDL Cholesterol PTH Intact 152.8 H Urine Creatinine Urine Total Protein Valproic Acid Crossmatch 10/17/18 10/17/18 10/18/18 12:17 21:32 06:36 WBC RBC Hgb Hct MCH RDW Lymph % (Auto) [place] % (Auto) Eos % (Auto) Lymph # [place] # Seg Neutrophils % Seg Neuts % (Manual) Lymphocytes % (Manual) Lymphocytes # (Manual) APTT D-Dimer Heparin Anti-Xa Level POC ABG pH POC ABG pCO2 POC ABG pO2 Sodium Potassium Chloride Carbon Dioxide BUN Creatinine Glucose POC Glucose 130 H 402 H 217 H Hemoglobin A1c Lactic Acid Calcium Phosphorus Magnesium Alkaline Phosphatase Total Creatine Kinase CK-MB (CK-2) CK-MB (CK-2) Rel Index Troponin T NT-Pro-B Natriuret Pep Serum Total Protein Total Protein Albumin Xiqbv-5-Vhscpbzij PEP Interpretation LDL Cholesterol Direct HDL Cholesterol PTH Intact Urine Creatinine Urine Total Protein Valproic Acid Crossmatch 10/18/18 10/18/18 10/18/18 08:19 12:24 18:30 WBC RBC Hgb Hct MCH RDW Lymph % (Auto) [place] % (Auto) Eos % (Auto) Lymph # [place] # Seg Neutrophils % Seg Neuts % (Manual) Lymphocytes % (Manual) Lymphocytes # (Manual) APTT D-Dimer Heparin Anti-Xa Level POC ABG pH POC ABG pCO2 POC ABG pO2 Sodium Potassium 5.6 H Chloride 107.3 H Carbon Dioxide BUN 62 H Creatinine 2.3 H Glucose 201 H POC Glucose 159 H 136 H Hemoglobin A1c Lactic Acid Calcium Phosphorus Magnesium Alkaline Phosphatase Total Creatine Kinase CK-MB (CK-2) CK-MB (CK-2) Rel Index Troponin T NT-Pro-B Natriuret Pep Serum Total Protein Total Protein Albumin Jopqd-9-Olgyffcex PEP Interpretation LDL Cholesterol Direct HDL Cholesterol PTH Intact Urine Creatinine Urine Total Protein Valproic Acid Crossmatch 10/19/18 10/19/18 10/19/18 04:53 04:53 11:33 WBC RBC 2.74 L Hgb 7.5 L Hct 23.0 L MCH 27 L RDW 17.9 H Lymph % (Auto) 11.3 L [place] % (Auto) 14.5 H Eos % (Auto) Lymph # 1.0 L [place] # 1.2 H Seg Neutrophils % 71.4 H Seg Neuts % (Manual) Lymphocytes % (Manual) Lymphocytes # (Manual) APTT D-Dimer Heparin Anti-Xa Level POC ABG pH POC ABG pCO2 POC ABG pO2 Sodium Potassium Chloride Carbon Dioxide 33 H BUN 33 H Creatinine Glucose 52 L POC Glucose 148 H Hemoglobin A1c Lactic Acid Calcium Phosphorus Magnesium Alkaline Phosphatase Total Creatine Kinase CK-MB (CK-2) CK-MB (CK-2) Rel Index Troponin T NT-Pro-B Natriuret Pep Serum Total Protein Total Protein Albumin Imbvq-1-Wfuuxhqii PEP Interpretation LDL Cholesterol Direct HDL Cholesterol PTH Intact Urine Creatinine Urine Total Protein Valproic Acid Crossmatch 10/19/18 10/20/18 10/20/18 21:10 05:30 18:14 WBC RBC Hgb Hct MCH RDW Lymph % (Auto) [place] % (Auto) Eos % (Auto) Lymph # [place] # Seg Neutrophils % Seg Neuts % (Manual) Lymphocytes % (Manual) Lymphocytes # (Manual) APTT D-Dimer Heparin Anti-Xa Level POC ABG pH POC ABG pCO2 POC ABG pO2 Sodium Potassium 5.1 H Chloride Carbon Dioxide 31 H BUN 40 H Creatinine 1.6 H Glucose POC Glucose 132 H 114 H Hemoglobin A1c Lactic Acid Calcium Phosphorus Magnesium Alkaline Phosphatase Total Creatine Kinase CK-MB (CK-2) CK-MB (CK-2) Rel Index Troponin T NT-Pro-B Natriuret Pep Serum Total Protein Total Protein Albumin Vqfeg-5-Dtsnlolvl PEP Interpretation LDL Cholesterol Direct HDL Cholesterol PTH Intact Urine Creatinine Urine Total Protein Valproic Acid Crossmatch 10/20/18 10/21/18 10/21/18 20:57 06:26 06:26 WBC RBC 2.76 L Hgb 7.7 L Hct 23.1 L MCH RDW 18.2 H Lymph % (Auto) [place] % (Auto) Eos % (Auto) Lymph # [place] # Seg Neutrophils % Seg Neuts % (Manual) 79.0 H Lymphocytes % (Manual) 9.0 L Lymphocytes # (Manual) 0.7 L APTT D-Dimer Heparin Anti-Xa Level POC ABG pH POC ABG pCO2 POC ABG pO2 Sodium 146 H Potassium Chloride Carbon Dioxide 31 H BUN 41 H Creatinine 1.6 H Glucose POC Glucose 196 H Hemoglobin A1c Lactic Acid Calcium Phosphorus 4.70 H Magnesium Alkaline Phosphatase Total Creatine Kinase CK-MB (CK-2) CK-MB (CK-2) Rel Index Troponin T NT-Pro-B Natriuret Pep Serum Total Protein Total Protein Albumin Udigz-1-Bmxejnkgh PEP Interpretation LDL Cholesterol Direct HDL Cholesterol PTH Intact Urine Creatinine Urine Total Protein Valproic Acid Crossmatch 10/21/18 10/21/18 10/21/18 06:26 08:52 17:00 WBC RBC Hgb Hct MCH RDW Lymph % (Auto) [place] % (Auto) Eos % (Auto) Lymph # [place] # Seg Neutrophils % Seg Neuts % (Manual) Lymphocytes % (Manual) Lymphocytes # (Manual) APTT D-Dimer Heparin Anti-Xa Level POC ABG pH POC ABG pCO2 POC ABG pO2 Sodium Potassium Chloride Carbon Dioxide BUN Creatinine Glucose POC Glucose 172 H Hemoglobin A1c Lactic Acid Calcium Phosphorus Magnesium Alkaline Phosphatase 258 H Total Creatine Kinase CK-MB (CK-2) CK-MB (CK-2) Rel Index Troponin T NT-Pro-B Natriuret Pep Serum Total Protein Total Protein Albumin Ettre-2-Tzshwahoa PEP Interpretation LDL Cholesterol Direct HDL Cholesterol PTH Intact Urine Creatinine Urine Total Protein Valproic Acid 46.4 L Crossmatch 10/21/18 10/22/18 10/22/18 23:37 05:25 05:25 WBC RBC 2.17 L Hgb 6.1 L Hct 20.7 L MCH RDW 18.2 H Lymph % (Auto) [place] % (Auto) 14.8 H Eos % (Auto) Lymph # [place] # 1.2 H Seg Neutrophils % Seg Neuts % (Manual) Lymphocytes % (Manual) Lymphocytes # (Manual) APTT D-Dimer Heparin Anti-Xa Level POC ABG pH POC ABG pCO2 POC ABG pO2 Sodium Potassium Chloride Carbon Dioxide 31 H BUN 45 H Creatinine 1.7 H Glucose 143 H POC Glucose 186 H Hemoglobin A1c Lactic Acid Calcium 8.3 L Phosphorus Magnesium Alkaline Phosphatase Total Creatine Kinase CK-MB (CK-2) CK-MB (CK-2) Rel Index Troponin T NT-Pro-B Natriuret Pep Serum Total Protein Total Protein Albumin Kijij-0-Xsrueqlzh PEP Interpretation LDL Cholesterol Direct HDL Cholesterol PTH Intact Urine Creatinine Urine Total Protein Valproic Acid Crossmatch 10/22/18 10/22/18 10/22/18 10:31 12:27 17:13 WBC RBC Hgb Hct MCH RDW Lymph % (Auto) [place] % (Auto) Eos % (Auto) Lymph # [place] # Seg Neutrophils % Seg Neuts % (Manual) Lymphocytes % (Manual) Lymphocytes # (Manual) APTT D-Dimer Heparin Anti-Xa Level POC ABG pH POC ABG pCO2 POC ABG pO2 Sodium Potassium Chloride Carbon Dioxide BUN Creatinine Glucose POC Glucose 198 H 137 H Hemoglobin A1c Lactic Acid Calcium Phosphorus Magnesium Alkaline Phosphatase Total Creatine Kinase CK-MB (CK-2) CK-MB (CK-2) Rel Index Troponin T NT-Pro-B Natriuret Pep Serum Total Protein Total Protein Albumin Nfrzt-2-Knlvtkjsu PEP Interpretation LDL Cholesterol Direct HDL Cholesterol PTH Intact Urine Creatinine Urine Total Protein Valproic Acid Crossmatch See Detail 10/22/18 10/23/18 10/23/18 20:35 06:00 09:07 WBC 11.1 H RBC 2.99 L Hgb 8.4 L Hct 25.7 L MCH RDW 17.9 H Lymph % (Auto) [place] % (Auto) Eos % (Auto) Lymph # [place] # Seg Neutrophils % Seg Neuts % (Manual) Lymphocytes % (Manual) Lymphocytes # (Manual) APTT D-Dimer Heparin Anti-Xa Level POC ABG pH POC ABG pCO2 POC ABG pO2 Sodium Potassium Chloride Carbon Dioxide BUN Creatinine Glucose POC Glucose 196 H 246 H Hemoglobin A1c Lactic Acid Calcium Phosphorus Magnesium Alkaline Phosphatase Total Creatine Kinase CK-MB (CK-2) CK-MB (CK-2) Rel Index Troponin T NT-Pro-B Natriuret Pep Serum Total Protein Total Protein Albumin Slweg-4-Ezvbghoqy PEP Interpretation LDL Cholesterol Direct HDL Cholesterol PTH Intact Urine Creatinine Urine Total Protein Valproic Acid Crossmatch 10/23/18 10/23/18 10/23/18 09:07 11:37 17:16 WBC RBC Hgb Hct MCH RDW Lymph % (Auto) [place] % (Auto) Eos % (Auto) Lymph # [place] # Seg Neutrophils % Seg Neuts % (Manual) Lymphocytes % (Manual) Lymphocytes # (Manual) APTT D-Dimer Heparin Anti-Xa Level POC ABG pH POC ABG pCO2 POC ABG pO2 Sodium Potassium 5.2 H Chloride Carbon Dioxide BUN 48 H Creatinine 2.4 H Glucose 247 H POC Glucose 222 H 196 H Hemoglobin A1c Lactic Acid Calcium Phosphorus Magnesium Alkaline Phosphatase Total Creatine Kinase CK-MB (CK-2) CK-MB (CK-2) Rel Index Troponin T NT-Pro-B Natriuret Pep Serum Total Protein Total Protein Albumin Ezxun-1-Eygiraiqy PEP Interpretation LDL Cholesterol Direct HDL Cholesterol PTH Intact Urine Creatinine Urine Total Protein Valproic Acid Crossmatch 10/23/18 10/24/18 10/24/18 21:39 04:13 04:13 WBC RBC 2.69 L Hgb 7.7 L Hct 23.4 L MCH RDW 18.3 H Lymph % (Auto) [place] % (Auto) Eos % (Auto) Lymph # [place] # Seg Neutrophils % Seg Neuts % (Manual) 77.0 H Lymphocytes % (Manual) 12.0 L Lymphocytes # (Manual) APTT D-Dimer Heparin Anti-Xa Level POC ABG pH POC ABG pCO2 POC ABG pO2 Sodium Potassium 5.1 H Chloride Carbon Dioxide BUN 53 H Creatinine 2.0 H Glucose 224 H POC Glucose 234 H Hemoglobin A1c Lactic Acid Calcium 8.3 L Phosphorus Magnesium Alkaline Phosphatase Total Creatine Kinase CK-MB (CK-2) CK-MB (CK-2) Rel Index Troponin T NT-Pro-B Natriuret Pep Serum Total Protein Total Protein Albumin Hftaa-0-Chghkcekj PEP Interpretation LDL Cholesterol Direct HDL Cholesterol PTH Intact Urine Creatinine Urine Total Protein Valproic Acid Crossmatch 10/24/18 10/24/18 10/24/18 07:51 11:41 17:38 WBC RBC Hgb Hct MCH RDW Lymph % (Auto) [place] % (Auto) Eos % (Auto) Lymph # [place] # Seg Neutrophils % Seg Neuts % (Manual) Lymphocytes % (Manual) Lymphocytes # (Manual) APTT D-Dimer Heparin Anti-Xa Level POC ABG pH POC ABG pCO2 POC ABG pO2 Sodium Potassium Chloride Carbon Dioxide BUN Creatinine Glucose POC Glucose 295 H 287 H 163 H Hemoglobin A1c Lactic Acid Calcium Phosphorus Magnesium Alkaline Phosphatase Total Creatine Kinase CK-MB (CK-2) CK-MB (CK-2) Rel Index Troponin T NT-Pro-B Natriuret Pep Serum Total Protein Total Protein Albumin Nwlnh-7-Jxxsugqcp PEP Interpretation LDL Cholesterol Direct HDL Cholesterol PTH Intact Urine Creatinine Urine Total Protein Valproic Acid Crossmatch 10/24/18 10/25/18 10/25/18 20:50 05:41 05:41 WBC 12.9 H RBC 2.83 L Hgb 7.9 L Hct 24.7 L MCH RDW 18.1 H Lymph % (Auto) [place] % (Auto) Eos % (Auto) Lymph # [place] # Seg Neutrophils % Seg Neuts % (Manual) Lymphocytes % (Manual) Lymphocytes # (Manual) APTT D-Dimer Heparin Anti-Xa Level POC ABG pH POC ABG pCO2 POC ABG pO2 Sodium Potassium 5.7 H Chloride Carbon Dioxide BUN 62 H Creatinine 2.2 H Glucose 135 H POC Glucose 117 H Hemoglobin A1c Lactic Acid Calcium Phosphorus Magnesium Alkaline Phosphatase Total Creatine Kinase CK-MB (CK-2) CK-MB (CK-2) Rel Index Troponin T NT-Pro-B Natriuret Pep Serum Total Protein Total Protein Albumin Mxrdg-6-Jcwhhpvhk PEP Interpretation LDL Cholesterol Direct HDL Cholesterol PTH Intact Urine Creatinine Urine Total Protein Valproic Acid Crossmatch 10/25/18 10/25/18 10/25/18 07:58 11:18 16:46 WBC RBC Hgb Hct MCH RDW Lymph % (Auto) [place] % (Auto) Eos % (Auto) Lymph # [place] # Seg Neutrophils % Seg Neuts % (Manual) Lymphocytes % (Manual) Lymphocytes # (Manual) APTT D-Dimer Heparin Anti-Xa Level POC ABG pH POC ABG pCO2 POC ABG pO2 Sodium Potassium Chloride Carbon Dioxide BUN Creatinine Glucose POC Glucose 203 H 223 H 199 H Hemoglobin A1c Lactic Acid Calcium Phosphorus Magnesium Alkaline Phosphatase Total Creatine Kinase CK-MB (CK-2) CK-MB (CK-2) Rel Index Troponin T NT-Pro-B Natriuret Pep Serum Total Protein Total Protein Albumin Bxvmg-7-Pwhlrkhap PEP Interpretation LDL Cholesterol Direct HDL Cholesterol PTH Intact Urine Creatinine Urine Total Protein Valproic Acid Crossmatch 10/25/18 10/25/18 10/26/18 19:44 22:13 05:31 WBC RBC 2.81 L Hgb 8.1 L Hct 24.7 L MCH RDW 18.3 H Lymph % (Auto) 11.3 L [place] % (Auto) 15.8 H Eos % (Auto) Lymph # [place] # 1.7 H Seg Neutrophils % Seg Neuts % (Manual) Lymphocytes % (Manual) Lymphocytes # (Manual) APTT D-Dimer Heparin Anti-Xa Level POC ABG pH POC ABG pCO2 POC ABG pO2 Sodium Potassium 5.3 H Chloride Carbon Dioxide BUN Creatinine Glucose POC Glucose 310 H Hemoglobin A1c Lactic Acid Calcium Phosphorus Magnesium Alkaline Phosphatase Total Creatine Kinase CK-MB (CK-2) CK-MB (CK-2) Rel Index Troponin T NT-Pro-B Natriuret Pep Serum Total Protein Total Protein Albumin Uqfzh-0-Wzkqpfieg PEP Interpretation LDL Cholesterol Direct HDL Cholesterol PTH Intact Urine Creatinine Urine Total Protein Valproic Acid Crossmatch 10/26/18 10/26/18 05:31 07:58 WBC RBC Hgb Hct MCH RDW Lymph % (Auto) [place] % (Auto) Eos % (Auto) Lymph # [place] # Seg Neutrophils % Seg Neuts % (Manual) Lymphocytes % (Manual) Lymphocytes # (Manual) APTT D-Dimer Heparin Anti-Xa Level POC ABG pH POC ABG pCO2 POC ABG pO2 Sodium Potassium 5.3 H Chloride Carbon Dioxide BUN 68 H Creatinine 2.2 H Glucose 187 H POC Glucose 145 H Hemoglobin A1c Lactic Acid Calcium Phosphorus Magnesium Alkaline Phosphatase Total Creatine Kinase CK-MB (CK-2) CK-MB (CK-2) Rel Index Troponin T NT-Pro-B Natriuret Pep Serum Total Protein Total Protein Albumin Vspux-3-Qrsxmmzmv PEP Interpretation LDL Cholesterol Direct HDL Cholesterol PTH Intact Urine Creatinine Urine Total Protein Valproic Acid Crossmatch Allied health notes reviewed: nursing
--- NOTE | 2018-10-26 12:32 | Progress Note ---
Assessment and Plan Acute on CKD - F/y BUN/Cr off HD Edema - Give pulse diuretic & f/u rine output Lytes - Kayexalate & f/y K Subjective Date of service: 10/26/18 Principal diagnosis: Severe Sepsis with Shock; Acute encephalopathy; MAXIMO; Diabetes II; CMOP Objective - Vital Signs Vital signs: Vital Signs - 12hr 10/26/18 10/26/18 10/26/18 06:06 09:32 11:55 Temperature 97.0 F L Pulse Rate 67 68 70 Respiratory 18 15 Rate Blood Pressure 155/87 119/77 157/95 O2 Sat by Pulse 100 100 Oximetry - General Appearance General appearance: other (Awake & alert, confused but not delirious) Neck: supple Respiratory: Present: Other (Good air entry) Cardiology: regular, S1S2 Gastrointestinal: other (Soft) Musculoskeletal: other (LE edema) - Lab 10/26/18 05:31 10/26/18 05:31 Most recent lab results Calcium 8.8 mg/dL (8.4-10.2) 10/26/18 05:31 Phosphorus 4.70 mg/dL (2.5-4.5) H 10/21/18 06:26 Magnesium 2.20 mg/dL (1.7-2.3) 10/21/18 06:26 Urine Creatinine 118.6 mg/dL (0.1-20.0) H 10/10/18 22:30 Urine Sodium 35 mmol/L 10/10/18 22:30 Urine Total Protein 152 mg/dL (5-11.8) H 10/10/18 22:30 Medications & Allergies - Medications Allergies/Adverse Reactions: Allergies No Known Allergies Allergy (Unverified 10/09/18 10:44) Home Medications: Home Medications Medication Instructions Recorded Confirmed Last Taken Type Carvedilol [Coreg] 3.125 mg PO BID 10/09/18 10/09/[address] [DepaKOTE DR] 500 mg PO BID 10/09/18 10/09/18 Unknown History Ferrous Sulfate [Feosol] 325 mg PO QDAY 10/09/18 10/09/18 Unknown History Furosemide [Lasix] 80 mg PO DAILY 10/09/18 10/09/18 Unknown History Gabapentin [Neurontin] 300 mg PO Q8HR 10/09/18 10/09/18 Unknown History ISOSORBIDE MONOnitrate [Imdur ER] 30 mg PO DAILY 10/09/18 10/09/18 Unknown History Insulin Glargine,Hum.rec.anlog 40 units SQ QHS 10/09/18 10/09/18 Unknown History [Lantus] Magnesium Oxide [Mag-Ox] 400 mg PO DAILY 10/09/18 10/09/18 Unknown History Simvastatin (Nf) [Zocor TAB] 20 mg PO QHS 10/09/18 10/09/18 Unknown History Sulfamethoxazole/Trimethoprim 1 each PO BID 10/09/18 10/09/18 Unknown History [Bactrim DS TAB] glipiZIDE [Glipizide] 10 mg PO DAILY 10/09/18 10/09/18 Unknown History hydrALAZINE [Apresoline TAB] 100 mg PO BID 10/09/18 10/09/18 Unknown History risperiDONE [RisperDAL] 1 mg PO QHS 10/09/18 10/09/18 Unknown History Active Medications: Generic Name Dose Route Start Last Admin Trade Name Freq PRN Reason Stop Dose Admin Albumin Human 25 gm 10/11/18 09:35 Alburx 25% (Albumin) IV JUDE PRN Hypotension Aspirin 325 mg 10/10/18 10:00 10/26/18 09:31 Aspirin PO 325 mg QDAY JAMIL Administration Carvedilol 6.25 mg 10/14/18 22:00 10/26/18 09:32 Coreg PO 6.25 mg BID JAMIL Administration Dextrose 50 ml 10/10/18 11:03 10/16/18 07:14 D50w (25gm) Syringe IV 50 ml PRN PRN Administration Hypoglycemia Famotidine 20 mg 10/10/18 12:00 10/26/18 09:32 Pepcid PO 20 mg DAILY JAMIL Administration Ferrous Sulfate 325 mg 10/10/18 10:00 10/26/18 09:35 Feosol PO Not Given QDAY JAMIL Furosemide 80 mg 10/23/18 10:00 10/26/18 09:31 Lasix PO 80 mg BID JAMIL Administration Gabapentin 300 mg 10/15/18 10:00 10/26/18 11:16 Neurontin PO Not Given DAILY JAMIL Heparin Sodium (Porcine) 5,000 unit 10/11/18 15:00 10/26/18 06:00 Heparin SUB-Q Not Given Q8HR [facility] Hydralazine HCl 20 mg 10/13/18 18:43 10/24/18 01:11 Apresoline IV 20 mg Q4HR PRN Administration Increased Blood Pressure Insulin Human Isoph/Insulin Regular 8 unit 10/24/18 17:00 10/26/18 09:36 Humulin 70/30 SUB-Q 8 unit BIDDIAB JAMIL Administration Insulin Human Regular 0 units 10/10/18 11:30 10/26/18 08:29 Humulin R SUB-Q Not Given ACHS [facility] Protocol Magnesium Hydroxide 30 ml 10/17/18 14:28 10/19/18 10:58 Milk Of Magnesia PO 30 ml QDAY PRN Administration Constipation Metolazone 5 mg 10/23/18 22:00 10/25/18 19:20 Zaroxolyn PO 5 mg DAILY@1730 JAMIL Administration Oxycodone/Acetaminophen 1 tab 10/19/18 10:18 10/26/18 10:51 Percocet 5/325 PO 1 tab Q8H PRN Administration Pain, Moderate (4-6) Pravastatin Sodium 40 mg 10/09/18 22:00 10/25/18 23:00 Pravachol PO 40 mg QHS JAMIL Administration Risperidone 1 mg 10/09/18 22:00 10/25/18 23:00 Risperdal PO 1 mg QHS JAMIL Administration Sodium Chloride 10 ml 10/09/18 13:00 10/26/18 09:34 Sodium Chloride Flush Syringe 10 Ml IV 10 ml BID JAMIL Administration Sodium Chloride 10 ml 10/09/18 13:00 Sodium Chloride Flush Syringe 10 Ml IV PRN PRN LINE FLUSH Sodium Polystyrene Sulfonate 30 gm 10/21/18 14:00 10/25/18 19:17 [facility]
[2018-10-26] MEDS ORDERED: LASIX IV NR (12:35)
[2018-10-26] MEDS ORDERED: KIONEX PO NR (13:00)
--- NOTE | 2018-10-26 17:47 | XRay Report ---
FINAL REPORT PROCEDURE: XR HAND 3+V LT TECHNIQUE: Left hand, three views HISTORY: h/o fall,pain and swelling Lt hand COMPARISON: No prior studies are available for comparison. FINDINGS: There is a displaced obliquely oriented fracture of the proximal 2nd phalanx. Distal fracture fragmen t is displaced posteriorly by approximately half a bone width. No definite extension is seen to the a rticular surface. No joint dislocation. There are interphalangeal joint osteoarthritic changes, with joint space narrowing. No radiopaque foreign body. IMPRESSION: Acute displaced fracture of the proximal 2nd phalanx
[2018-10-26] MEDS: ZAROXOLYN PO SCH (18:31)
[2018-10-26] MEDS: PRAVACHOL PO SCH (23:07)
[2018-10-26] MEDS: RisperDAL PO SCH (23:07)
[2018-10-27 05:48] LABS: Basophils % (Auto) 0.3 % (0.0-1.8); Eosinophils # (Auto) 0.3 K/mm3 (0.0-0.4); Hematocrit 25.5 % (35.5-45.6); Hemoglobin 8.2 gm/dl (11.8-15.2); Lymphocytes # (Auto) 1.3 K/mm3 (1.2-5.4); Mean Corpuscular HGB Conc 32 % (32-34); Mean Corpuscular Volume 87 fl (84-94); Monocytes # (Auto) 1.8 K/mm3 (0.0-0.8); Monocytes % (Auto) 14.3 % (0.0-7.3); Platelet Count 380 K/mm3 (140-440); Red Blood Count 2.94 M/mm3 (3.65-5.03); Red Cell Distribution Width 18.3 % (13.2-15.2)
[2018-10-27] MEDS: HEPARIN SUB-Q SCH ×3 (06:00→23:07)
[2018-10-27 06:12] LABS: Calcium 8.9 mg/dL (8.4-10.2)
[2018-10-27] MEDS: HumuLIN R SUB-Q SCH ×4 (09:10→23:17)
[2018-10-27] MEDS: PEPCID PO SCH (09:58)
[2018-10-27] MEDS: COREG PO SCH ×2 (09:58→23:03)
[2018-10-27] MEDS: ASPIRIN PO SCH (09:58)
[2018-10-27] MEDS: SODIUM CHLORIDE FLUSH SYRINGE 10 ML IV SCH ×2 (09:59→23:07)
[2018-10-27] MEDS ORDERED: MORPHINE IV PRN (10:40)
--- NOTE | 2018-10-27 11:26 | Progress Note ---
Assessment and Plan Assessment and plan: -- s/p fall, Lt hand ,xray: acute fracture dislocation proximal second phalynx mild tenderness second phalynx, Ortho consult d/w Pain management --Hyperkalemia;improved, potassium 5.1 --Acute kidney injury;creatinine 2.2 Management per nephrology --Uncontrolled DM : Continue 70/30 , SSI, Accu-Cheks, ADA diet, -- Anemia: Chronic disease ;transfused 2 unit PRBC Patient's hemoglobin improved to 7.5, Closely monitor H&H --Altered mental status/Acute encephalopathy ; present on admission head CT with no acute process, baseline --Bilateral moderate pleural effusion; Spontaneous improvement of right pleural effusion from 300 mL- 31 mL Left pleural effusion decreased from 421 mL-112 mL No indication for thoracentesis, continue hemodialysis --Hypotension- s/p vasopressor , currently hypertensive. --NSTEMI type II- s/p heparin drip, obtained 2d echo, cardiology evaluated and signed off Outpatient follow-up for further evaluation and management --Acute on chronic systolic CHF: EF 35-40%, cont aspirin/statin, monitor daily wt, ins/os, restrict fluid --Sinus bradycardia -resolved, avoid beta blockers --HTN, continue current antihypertensives and when necessary medications --HLP, cont statin -- h/o psych disorder, supportive care, discussed with psych cleared to d/c home,no need to return to psych facility --Extensive scrotal swelling, ultrasound; thick skin, testis and epididymis normal --DC planning per case management. Patient is stable to be discharged Disposition per nephrology and case management History Interval history: Patient seen and examined medical records reviewed Patient is very upset, crying at times, complains of pain on the right index finger Alert awake oriented Vital signs noted Hospitalist Physical - Constitutional Vitals: Temp Pulse Resp BP Pulse Ox 98.9 F 84 18 167/81 97 10/27/18 05:02 10/27/18 09:58 10/27/18 05:02 10/27/18 09:58 10/27/18 05:02 General appearance: Present: no acute distress, well-nourished - EENT Eyes: Present: PERRL, EOM intact - Neck Neck: Present: supple, normal ROM - Respiratory Respiratory effort: normal, labored Respiratory: bilateral: diminished, negative: rales, rhonchi, wheezing - Cardiovascular Rhythm: regular Heart Sounds: Present: S1 & S2 - Extremities Extremities: no ischemia, abnormal (left index finger swelling and tenderness) Extremity abnormal: edema - Abdominal General gastrointestinal: soft, non-tender, non-distended, normal bowel sounds - Integumentary Integumentary: Present: clear, warm - Psychiatric Psychiatric: appropriate mood/affect, cooperative - Neurologic Neurologic: CNII-XII intact Results - Labs CBC & Chem 7: 10/27/18 05:14 10/27/18 05:14 Labs: Laboratory Last Values WBC 12.7 K/mm3 (4.5-11.0) H 10/27/18 05:14 RBC 2.94 M/mm3 (3.65-5.03) L 10/27/18 05:14 Hgb 8.2 gm/dl (11.8-15.2) L 10/27/18 05:14 Hct 25.5 % (35.5-45.6) L 10/27/18 05:14 MCV 87 fl (84-94) 10/27/18 05:14 MCH 28 pg (28-32) 10/27/18 05:14 MCHC 32 % (32-34) 10/27/18 05:14 RDW 18.3 % (13.2-15.2) H 10/27/18 05:14 Plt Count 380 K/mm3 (140-440) 10/27/18 05:14 Lymph % (Auto) 10.0 % (13.4-35.0) L 10/27/18 05:14 [place] % (Auto) 14.3 % (0.0-7.3) H 10/27/18 05:14 Eos % (Auto) 2.0 % (0.0-4.3) 10/27/18 05:14 Baso % (Auto) 0.3 % (0.0-1.8) 10/27/18 05:14 Lymph # 1.3 K/mm3 (1.2-5.4) 10/27/18 05:14 [place] # 1.8 K/mm3 (0.0-0.8) H 10/27/18 05:14 Eos # 0.3 K/mm3 (0.0-0.4) 10/27/18 05:14 Baso # 0.0 K/mm3 (0.0-0.1) 10/27/18 05:14 Add Manual Diff Complete 10/24/18 04:13 Total Counted 100 10/24/18 04:13 Seg Neutrophils % 73.4 % (40.0-70.0) H 10/27/18 05:14 Seg Neuts % (Manual) 77.0 % (40.0-70.0) H 10/24/18 04:13 Band Neutrophils % 0 % 10/24/18 04:13 Lymphocytes % (Manual) 12.0 % (13.4-35.0) L 10/24/18 04:13 Reactive Lymphs % (Man) 0 % 10/24/18 04:13 Monocytes % (Manual) 7.0 % (0.0-7.3) 10/24/18 04:13 Eosinophils % (Manual) 2.0 % (0.0-4.3) 10/24/18 04:13 Basophils % (Manual) 0 % (0.0-1.8) 10/24/18 04:13 Metamyelocytes % 0 % 10/24/18 04:13 Myelocytes % 2.0 % 10/24/18 04:13 Promyelocytes % 0 % 10/24/18 04:13 Blast Cells % 0 % 10/24/18 04:13 Nucleated RBC % Not Reportable 10/24/18 04:13 Seg Neutrophils # 9.3 K/mm3 (1.8-7.7) H 10/27/18 05:14 Seg Neutrophils # Man 7.5 K/mm3 (1.8-7.7) 10/24/18 04:13 Band Neutrophils # 0.0 K/mm3 10/24/18 04:13 Lymphocytes # (Manual) 1.2 K/mm3 (1.2-5.4) 10/24/18 04:13 Abs React Lymphs (Man) 0.0 K/mm3 10/24/18 04:13 Monocytes # (Manual) 0.7 K/mm3 (0.0-0.8) 10/24/18 04:13 Eosinophils # (Manual) 0.2 K/mm3 (0.0-0.4) 10/24/18 04:13 Basophils # (Manual) 0.0 K/mm3 (0.0-0.1) 10/24/18 04:13 Metamyelocytes # 0.0 K/mm3 10/24/18 04:13 Myelocytes # 0.2 K/mm3 10/24/18 04:13 Promyelocytes # 0.0 K/mm3 10/24/18 04:13 Blast Cells # 0.0 K/mm3 10/24/18 04:13 WBC Morphology Not Reportable 10/24/18 04:13 Hypersegmented Neuts Not Reportable 10/24/18 04:13 Hyposegmented Neuts Not Reportable 10/24/18 04:13 Hypogranular Neuts Not Reportable 10/24/18 04:13 Smudge Cells Not Reportable 10/24/18 04:13 Toxic Granulation Not Reportable 10/24/18 04:13 Toxic Vacuolation Not Reportable 10/24/18 04:13 Dohle Bodies Not Reportable 10/24/18 04:13 Pelger-Huet Anomaly Not Reportable 10/24/18 04:13 Wong Rods Not Reportable 10/24/18 04:13 Platelet Estimate Consistent w auto 10/24/18 04:13 Clumped Platelets Not Reportable 10/24/18 04:13 Plt Clumps, EDTA Not Reportable 10/24/18 04:13 Large Platelets Not Reportable 10/24/18 04:13 Giant Platelets Not Reportable 10/24/18 04:13 Platelet Satelliting Not Reportable 10/24/18 04:13 Plt Morphology Comment Not Reportable 10/24/18 04:13 RBC Morphology Not Reportable 10/24/18 04:13 Dimorphic RBCs Not Reportable 10/24/18 04:13 Polychromasia 1+ 10/24/18 04:13 Hypochromasia Not Reportable 10/24/18 04:13 Poikilocytosis Not Reportable 10/24/18 04:13 Anisocytosis 1+ 10/24/18 04:13 Microcytosis Few 10/24/18 04:13 Macrocytosis Not Reportable 10/24/18 04:13 Spherocytes Not Reportable 10/24/18 04:13 Pappenheimer Bodies Not Reportable 10/24/18 04:13 Sickle Cells Not Reportable 10/24/18 04:13 Target Cells Not Reportable 10/24/18 04:13 Tear Drop Cells Not Reportable 10/24/18 04:13 Ovalocytes Not Reportable 10/24/18 04:13 Helmet Cells Not Reportable 10/24/18 04:13 Fernandez-Bally Bodies Not Reportable 10/24/18 04:13 [place] Rings Not Reportable 10/24/18 04:13 Rebekah Cells Not Reportable 10/24/18 04:13 Bite Cells Not Reportable 10/24/18 04:13 Crenated Cell Not Reportable 10/24/18 04:13 Elliptocytes Not Reportable 10/24/18 04:13 Acanthocytes (Spur) Not Reportable 10/24/18 04:13 Rouleaux Not Reportable 10/24/18 04:13 Hemoglobin C Crystals Not Reportable 10/24/18 04:13 Schistocytes Not Reportable 10/24/18 04:13 Malaria parasites Not Reportable 10/24/18 04:13 Domenic Bodies Not Reportable 10/24/18 04:13 Hem Pathologist Commnt No 10/24/18 04:13 PT 14.0 Sec. (12.2-14.9) 10/17/18 Unknown INR 1.04 (0.87-1.13) 10/17/18 Unknown APTT 42.4 Sec. (24.2-36.6) H 10/09/18 14:25 D-Dimer 927.57 ng/mlDDU (0-234) H 10/10/18 13:36 Heparin Anti-Xa Level 0.49 U.I./ml (0.3-0.7) 10/11/18 04:31 POC ABG pH 7.359 (7.35-7.45) 10/15/18 13:21 POC ABG pCO2 48.4 (35-45) H 10/15/18 13:21 POC ABG pO2 77 (80-105) L 10/15/18 13:21 POC ABG HCO3 27.3 10/15/18 13:21 POC ABG Total CO2 29 10/15/18 13:21 POC ABG O2 Sat 95 10/15/18 13:21 POC ABG Base Excess 2 10/15/18 13:21 FiO2 21 % 10/15/18 13:21 Sodium 136 mmol/L (137-145) L 10/27/18 05:14 Potassium 5.1 mmol/L (3.6-5.0) H 10/27/18 05:14 Chloride 97.7 mmol/L (98-107) L 10/27/18 05:14 Carbon Dioxide 30 mmol/L (22-30) 10/27/18 05:14 Anion Gap 13 mmol/L 10/27/18 05:14 BUN 67 mg/dL (9-20) H 10/27/18 05:14 Creatinine 1.7 mg/dL (0.8-1.5) H 10/27/18 05:14 Estimated GFR 52 ml/min 10/27/18 05:14 BUN/Creatinine Ratio 39 % 10/27/18 05:14 Glucose 99 mg/dL (75-100) 10/27/18 05:14 POC Glucose 131 (70-105) H 10/27/18 09:08 Hemoglobin A1c 8.2 % (4-6) H 10/10/18 05:00 Lactic Acid 0.60 mmol/L (0.7-2.0) L 10/10/18 13:36 Calcium 8.9 mg/dL (8.4-10.2) 10/27/18 05:14 Phosphorus 4.70 mg/dL (2.5-4.5) H 10/21/18 06:26 Magnesium 2.20 mg/dL (1.7-2.3) 10/21/18 06:26 Total Bilirubin < 0.20 mg/dL (0.1-1.2) 10/11/18 20:45 AST 18 units/L (5-40) 10/21/18 06:26 ALT 29 units/L (7-56) 10/21/18 06:26 Alkaline Phosphatase 258 units/L (35-129) H 10/21/18 06:26 Total Creatine Kinase 481 units/L (55-170) H 10/09/18 11:22 CK-MB (CK-2) 20.5 ng/mL (0.0-4.0) H 10/09/18 11:22 CK-MB (CK-2) Rel Index 4.2 (0-4) H 10/09/18 11:22 Troponin T 0.139 ng/mL (0.00-0.029) H* 10/09/18 20:56 C-Reactive Protein 0.90 mg/dL (0.00-1.30) 10/10/18 13:36 NT-Pro-B Natriuret Pep 2963 pg/mL (0-450) H 10/09/18 11:22 Serum Total Protein 5.6 g/dL (6.1-8.1) L 10/15/18 05:39 Total Protein 6.2 g/dL (6.3-8.2) L 10/11/18 20:45 Albumin 2.5 g/dL (3.8-4.8) L 10/15/18 05:39 Albumin/Globulin Ratio 0.9 % 10/11/18 20:45 Guwla-9-Dpqviosnz 0.4 g/dL (0.2-0.3) H 10/15/18 05:39 Ohepy-5-Ixbodzsdj 0.7 g/dL (0.5-0.9) 10/15/18 05:39 Beta Globulins 0.4 g/dL (0.2-0.5) 10/15/18 05:39 Gamma Globulins 1.2 g/dL (0.8-1.7) 10/15/18 05:39 Abnorm Protein Band 1 see below 10/15/18 05:39 PEP Interpretation see below H 10/15/18 05:39 Triglycerides 24 mg/dL (2-149) 10/09/18 11:22 Cholesterol 115 mg/dL (50-199) 10/09/18 11:22 LDL Cholesterol Direct 49 mg/dL (50-130) L 10/09/18 11:22 HDL Cholesterol 73 mg/dL (40-59) H 10/09/18 11:22 Cholesterol/HDL Ratio 1.57 % 10/09/18 11:22 Amylase 50 units/L (27-131) 10/21/18 06:26 Lipase 13 units/L (13-60) 10/21/18 06:26 PTH Intact 152.8 pg/mL (15-65) H 10/17/18 05:22 Urine Color Tamie (Yellow) 10/10/18 22:30 Urine Turbidity Clear (Clear) 10/10/18 22:30 Urine pH 5.0 (5.0-7.0) 10/10/18 22:30 Ur Specific [place] 1.016 (1.003-1.030) 10/10/18 22:30 Urine Protein 100 mg/dl mg/dL (Negative) 10/10/18 22:30 Urine Glucose (UA) 50 mg/dL (Negative) 10/10/18 22:30 Urine Ketones Neg mg/dL (Negative) 10/10/18 22:30 Urine Blood Neg (Negative) 10/10/18 22:30 Urine Nitrite Neg (Negative) 10/10/18 22:30 Urine Bilirubin Neg (Negative) 10/10/18 22:30 Urine Urobilinogen 4.0 mg/dL (<2.0) 10/10/18 22:30 Ur Leukocyte Esterase Tr (Negative) 10/10/18 22:30 Urine WBC (Auto) 2.0 /HPF (0.0-6.0) 10/10/18 22:30 Urine RBC (Auto) 5.0 /HPF (0.0-6.0) 10/10/18 22:30 U Epithel Cells (Auto) < 1.0 /HPF (0-13.0) 10/10/18 22:30 Urine Bacteria (Auto) 1+ /HPF (Negative) 10/10/18 22:30 Hyaline Casts 1 /LPF 10/10/18 22:30 Urine Mucus Few /HPF 10/10/18 22:30 Urine Creatinine 118.6 mg/dL (0.1-20.0) H 10/10/18 22:30 Protein/Creatinin Ratio 1.28 10/10/18 22:30 Urine Sodium 35 mmol/L 10/10/18 22:30 Urine Total Protein 152 mg/dL (5-11.8) H 10/10/18 22:30 Valproic Acid 46.4 ug/mL (50-100) L 10/21/18 08:52 BROWN Screen Negative (Negative) 10/15/18 05:39 Proteinase 3 (PR3) Ab <1.0 AI (<1.0) 10/15/18 05:39 Myeloperoxidase Ab <1.0 AI (<1.0) 10/15/18 05:39 Complement C3 129 mg/dL (82-185) 10/15/18 05:39 Complement C4 34 mg/dL (15-53) 10/15/18 05:39 Hepatitis A IgM Ab Non-reactive (NonReactive) 10/11/18 13:24 Hep Bs Antigen Non-reactive (Negative) 10/11/18 13:24 Hep B Core IgM Ab Non-reactive (NonReactive) 10/11/18 13:24 Hepatitis C Antibody Non-reactive (NonReactive) 10/11/18 13:24 Blood Type AB POSITIVE 10/22/18 10:31 Antibody Screen Negative 10/22/18 10:31 Crossmatch See Detail 10/22/18 10:31 Nutrition/Malnutrition Assess - Dietary Evaluation Nutrition/Malnutrition Findings: Nutrition Notes Start: 10/16/18 16:17 Freq: Status: Active Protocol: Document 10/25/18 16:14 RM (Rec: 10/25/18 16:28 RM [id number]) Nutrition Notes Initial or Follow up Reassessment Current Diagnosis Acute Kidney Injury Diabetes Hypertension Heart Failure Other Pertinent Diagnosis Encephalopathy, R leg diabetic PU, AMS Current Diet Cardiac/Renal/Consistent Carb w/Nepro Butter Pecan BID Labs/Tests K 5.7 Pertinent Medications Lasix Height 6 ft 2 in Weight 116.7 kg [place] Body Weight (kg) 190.0 BMI 33.0 Weight change and time frame wt changed noted Subjective/Other Information Pt stated that his appetite is good but he eats only half of his meals d/t food preferences. Noted preferences . Also stated he does not like the Nepro and does not drink it. Percent of energy/protein needs met: 54%/38% Burn Absent Trauma Absent #1 Nutrition Diagnosis Inadequate oral intake As Evidenced by Signs and Symptoms pt meeting 54% of calorie needs and 38% of protein needs Diagnosis Progress(for reassessment Worsened documentation) Is patient on ventilator? No Is Patient Ambulatory and/or Out of Bed No REE-([facility]-confined to bed) 2531.304 Kcal/Kg value to use for calculation 17 Approximate Energy Requirements Using 1984 kcal/Kg Calculation Used for Recommendations Kcal/kg Additional Notes Protein Needs: 103-134g (1-1. 3g/kg, 103kg adjBW) Fluid Needs: 1ml/kcal Nutrition Intervention Change Diet Order: Continue current Add Supplement/Snack (indicate name/kcal D/C Nepro /protein ) Goal #1 Meet at least 75% of calorie and protein needs via PO intakes Anticipated Discharge Needs: Cardiac/Consistent Carb/Renal Follow-Up By: 10/29/18 Additional Comments Follow for PO intakes
[2018-10-27] MEDS: MORPHINE IV PRN ×2 (11:44→23:07)
[2018-10-27] MEDS: FEOSOL PO SCH (11:47)
--- NOTE | 2018-10-27 12:28 | Progress Note ---
Assessment and Plan Acute on CKD - F/u BUN/Cr off HD Edema - Cautious diuretic & f/u rine output Lytes - Repeat Kayexalate & f/u K Subjective Date of service: 10/27/18 Principal diagnosis: Severe Sepsis with Shock; Acute encephalopathy; MAXIMO; Diabetes II; CMOP Interval history: No change Objective - Vital Signs Vital signs: Vital Signs - 12hr 10/27/18 10/27/18 10/27/18 00:55 05:02 09:58 Temperature 99.0 F 98.9 F Pulse Rate 86 93 H 84 Respiratory 18 18 Rate Blood Pressure 163/93 130/56 167/81 Blood Pressure [Right] O2 Sat by Pulse 96 97 Oximetry 10/27/18 11:52 Temperature 97.9 F Pulse Rate 75 Respiratory 20 Rate Blood Pressure Blood Pressure 134/79 [Right] O2 Sat by Pulse 95 Oximetry - General Appearance General appearance: other (Awake & responsive, No change) Neck: no JVD Respiratory: Present: Other (Good air entry) Cardiology: regular, S1S2 Gastrointestinal: normal Musculoskeletal: other (LE edema) - Lab 10/27/18 05:14 10/27/18 05:14 Most recent lab results Calcium 8.9 mg/dL (8.4-10.2) 10/27/18 05:14 Phosphorus 4.70 mg/dL (2.5-4.5) H 10/21/18 06:26 Magnesium 2.20 mg/dL (1.7-2.3) 10/21/18 06:26 Urine Creatinine 118.6 mg/dL (0.1-20.0) H 10/10/18 22:30 Urine Sodium 35 mmol/L 10/10/18 22:30 Urine Total Protein 152 mg/dL (5-11.8) H 10/10/18 22:30 Medications & Allergies - Medications Allergies/Adverse Reactions: Allergies No Known Allergies Allergy (Unverified 10/09/18 10:44) Home Medications: Home Medications Medication Instructions Recorded Confirmed Last Taken Type Carvedilol [Coreg] 3.125 mg PO BID 10/09/18 10/09/[address] [DepaKOTE DR] 500 mg PO BID 10/09/18 10/09/18 Unknown History Ferrous Sulfate [Feosol] 325 mg PO QDAY 10/09/18 10/09/18 Unknown History Furosemide [Lasix] 80 mg PO DAILY 10/09/18 10/09/18 Unknown History Gabapentin [Neurontin] 300 mg PO Q8HR 10/09/18 10/09/18 Unknown History ISOSORBIDE MONOnitrate [Imdur ER] 30 mg PO DAILY 10/09/18 10/09/18 Unknown History Insulin Glargine,Hum.rec.anlog 40 units SQ QHS 10/09/18 10/09/18 Unknown History [Lantus] Magnesium Oxide [Mag-Ox] 400 mg PO DAILY 10/09/18 10/09/18 Unknown History Simvastatin (Nf) [Zocor TAB] 20 mg PO QHS 10/09/18 10/09/18 Unknown History Sulfamethoxazole/Trimethoprim 1 each PO BID 10/09/18 10/09/18 Unknown History [Bactrim DS TAB] glipiZIDE [Glipizide] 10 mg PO DAILY 10/09/18 10/09/18 Unknown History hydrALAZINE [Apresoline TAB] 100 mg PO BID 10/09/18 10/09/18 Unknown History risperiDONE [RisperDAL] 1 mg PO QHS 10/09/18 10/09/18 Unknown History Active Medications: Generic Name Dose Route Start Last Admin Trade Name Freq PRN Reason Stop Dose Admin Albumin Human 25 gm 10/11/18 09:35 Alburx 25% (Albumin) IV JUDE PRN Hypotension Aspirin 325 mg 10/10/18 10:00 10/27/18 09:58 Aspirin PO 325 mg QDAY JAMIL Administration Carvedilol 6.25 mg 10/14/18 22:00 10/27/18 09:58 Coreg PO 6.25 mg BID JAMIL Administration Dextrose 50 ml 10/10/18 11:03 10/16/18 07:14 D50w (25gm) Syringe IV 50 ml PRN PRN Administration Hypoglycemia Famotidine 20 mg 10/10/18 12:00 10/27/18 09:58 Pepcid PO 20 mg DAILY JAMIL Administration Ferrous Sulfate 325 mg 10/10/18 10:00 10/27/18 11:47 Feosol PO Not Given QDAY [facility] Heparin Sodium (Porcine) 5,000 unit 10/11/18 15:00 10/26/18 23:07 Heparin SUB-Q Not Given Q8HR [facility] Hydralazine HCl 20 mg 10/13/18 18:43 10/24/18 01:11 Apresoline IV 20 mg Q4HR PRN Administration Increased Blood Pressure Insulin Human Isoph/Insulin Regular 8 unit 10/24/18 17:00 10/27/18 09:59 Humulin 70/30 SUB-Q 8 unit BIDDIAB JAMIL Administration Insulin Human Regular 0 units 10/10/18 11:30 10/26/18 23:05 Humulin R SUB-Q 6 units ACHS JAMIL Administration Protocol Magnesium Hydroxide 30 ml 10/17/18 14:28 10/19/18 10:58 Milk Of Magnesia PO 30 ml QDAY PRN Administration Constipation Metolazone 5 mg 10/23/18 22:00 10/26/18 18:31 Zaroxolyn PO 5 mg DAILY@1730 [facility] Administration Morphine Sulfate 1 mg 10/27/18 11:23 10/27/18 11:44 Morphine IV 1 mg Q4H PRN Administration Pain , Moderate Oxycodone/Acetaminophen 1 tab 10/19/18 10:18 10/26/18 10:51 Percocet 5/325 PO 1 tab Q8H PRN Administration Pain, Moderate (4-6) Pravastatin Sodium 40 mg 10/09/18 22:00 10/26/18 23:07 Pravachol PO 40 mg QHS JAMIL Administration Risperidone 1 mg 10/09/18 22:00 10/26/18 23:07 Risperdal PO 1 mg QHS JAMIL Administration Sodium Chloride 10 ml 10/09/18 13:00 10/27/18 09:59 Sodium Chloride Flush Syringe 10 Ml IV 10 ml BID JAMIL Administration Sodium Chloride 10 ml 10/09/18 13:00 Sodium Chloride Flush Syringe 10 Ml IV PRN PRN LINE FLUSH Sodium Polystyrene Sulfonate 30 gm 10/21/18 14:00 10/25/18 19:17 Kionex PO Not Given MoWeFr [facility]
--- NOTE | 2018-10-27 12:29 | Progress Note ---
Assessment and Plan Severe Sepsis syndrome. Shock (cardiogenic versus septic) Acute encephalopathy. Possible seizures. History of diabetes CMOP Leukopenia. Anemia that is normocytic. Acute hypercapnic respiratory acidosis. Hyperkalemia. Acute kidney injury. Non-ST elevation myocardial infarction. Hypoglycemia. Possible peripheral vascular disease. Obesity. - VQ scan intermediate prob but clinically he is improved - continue kayexalate for hyperkalemia - continue azotemia management per nephrology otherwise - continue DVT prophylaxis with heparin 5000U sq q8h - lower extremity dopplers negative - azotemia per nephrology; numbers improving - prn suppelemntal oxygen to keep sats > 90% - continue risperdone - PT/OT as tolerated - mobility protocol for pressure ulcer prophylaxis - aspiration precautions - prn bronchodilators with pulmonary hygiene per RT - continue stress ulcer prophylaxis - s/p empiric Antibiotics course (Levaquin) - continue Mobility protocol for pressure ulcer prevention - continue other care per attending / other consultants .... re-evaluate in am & prn FULL CODE STATUS Subjective Date of service: 10/27/18 Principal diagnosis: Severe Sepsis with Shock; Acute encephalopathy; MAXIMO; Diabetes II; CMOP Interval history: Patient is seen today for: Severe Sepsis syndrome; Shock (cardiogenic versus septic); Acute encephalopathy; Possible seizures; History of diabetes; CMOP Seen and examined at bedside; 24hour events reviewed; nursing and respiratory care staff consulted; no adverse overnight events reported to me; resting peacefully in bed; Objective Vital Signs - 12hr 10/27/18 10/27/18 10/27/18 00:55 05:02 09:58 Temperature 99.0 F 98.9 F Pulse Rate 86 93 H 84 Respiratory 18 18 Rate Blood Pressure 163/93 130/56 167/81 Blood Pressure [Right] O2 Sat by Pulse 96 97 Oximetry 10/27/18 11:52 Temperature 97.9 F Pulse Rate 75 Respiratory 20 Rate Blood Pressure Blood Pressure 134/79 [Right] O2 Sat by Pulse 95 Oximetry Constitutional: no acute distress, alert, other (middle aged AAM, normocephalic and atraumatic with normal respiratory effort) Eyes: non-icteric ENT: oropharynx moist Neck: supple, no lymphadenopathy, no JVD Effort: normal Ascultation: Bilateral: diminished breath sounds, rales (bases), rhonchi (bases) Percussion: Bilateral: not dull Cardiovascular: regular rate and rhythm Gastrointestinal: normoactive bowel sounds, soft, non-tender, non-distended Integumentary: rash (feet) Extremities: no cyanosis, pulses normal, no ischemia or petechiae, edema (trace to 1+) Neurologic: normal mental status, non-focal exam, pupils equal and round, motor strength normal and, other (sensory numbness to feet) Psychiatric: mood appropriate, affect normal, other CBC and BMP: 10/27/18 05:14 10/27/18 05:14 ABG, PT/INR, D-dimer: ABG POC ABG pH 7.359 (7.35-7.45) 10/15/18 13:21 POC ABG pCO2 48.4 (35-45) H 10/15/18 13:21 POC ABG pO2 77 (80-105) L 10/15/18 13:21 POC ABG HCO3 27.3 10/15/18 13:21 POC ABG Total CO2 29 10/15/18 13:21 POC ABG O2 Sat 95 10/15/18 13:21 PT/INR, D-dimer PT 14.0 Sec. (12.2-14.9) 10/17/18 Unknown INR 1.04 (0.87-1.13) 10/17/18 Unknown D-Dimer 927.57 ng/mlDDU (0-234) H 10/10/18 13:36 Abnormal lab findings: Abnormal Labs 10/09/18 10/09/18 10/09/18 11:22 11:22 11:22 WBC 3.3 L RBC 3.03 L Hgb 8.4 L Hct 25.8 L MCH RDW 18.7 H Lymph % (Auto) Ada % (Auto) 12.1 H Eos % (Auto) 4.6 H Lymph # 0.5 L Ada # Seg Neutrophils % Seg Neuts % (Manual) Lymphocytes % (Manual) Seg Neutrophils # Lymphocytes # (Manual) APTT 42.8 H D-Dimer Heparin Anti-Xa Level POC ABG pH POC ABG pCO2 POC ABG pO2 Sodium Potassium 5.2 H Chloride 108.2 H Carbon Dioxide BUN 49 H Creatinine 1.9 H Glucose 153 H POC Glucose Hemoglobin A1c Lactic Acid Calcium Phosphorus Magnesium Alkaline Phosphatase Total Creatine Kinase 481 H CK-MB (CK-2) 20.5 H CK-MB (CK-2) Rel Index 4.2 H Troponin T 0.153 H* NT-Pro-B Natriuret Pep 2963 H Serum Total Protein Total Protein Albumin Irbmn-9-Fjefjokca PEP Interpretation LDL Cholesterol Direct 49 L HDL Cholesterol 73 H PTH Intact Urine Creatinine Urine Total Protein Valproic Acid Crossmatch 10/09/18 10/09/18 10/09/18 13:43 14:25 14:25 WBC RBC Hgb 8.2 L Hct 26.2 L MCH RDW Lymph % (Auto) Ada % (Auto) Eos % (Auto) Lymph # Ada # Seg Neutrophils % Seg Neuts % (Manual) Lymphocytes % (Manual) Seg Neutrophils # Lymphocytes # (Manual) APTT 42.4 H D-Dimer Heparin Anti-Xa Level POC ABG pH POC ABG pCO2 POC ABG pO2 Sodium Potassium Chloride Carbon Dioxide BUN Creatinine Glucose POC Glucose 167 H Hemoglobin A1c Lactic Acid Calcium Phosphorus Magnesium Alkaline Phosphatase Total Creatine Kinase CK-MB (CK-2) CK-MB (CK-2) Rel Index Troponin T NT-Pro-B Natriuret Pep Serum Total Protein Total Protein Albumin Cdqmc-8-Nojdswdxd PEP Interpretation LDL Cholesterol Direct HDL Cholesterol PTH Intact Urine Creatinine Urine Total Protein Valproic Acid Crossmatch 10/09/18 10/09/18 10/09/18 17:28 20:56 21:23 WBC RBC Hgb Hct MCH RDW Lymph % (Auto) Ada % (Auto) Eos % (Auto) Lymph # Ada # Seg Neutrophils % Seg Neuts % (Manual) Lymphocytes % (Manual) Seg Neutrophils # Lymphocytes # (Manual) APTT D-Dimer Heparin Anti-Xa Level 0.28 L POC ABG pH POC ABG pCO2 POC ABG pO2 Sodium Potassium Chloride Carbon Dioxide BUN Creatinine Glucose POC Glucose Hemoglobin A1c Lactic Acid Calcium Phosphorus Magnesium Alkaline Phosphatase Total Creatine Kinase CK-MB (CK-2) CK-MB (CK-2) Rel Index Troponin T 0.136 H* 0.139 H* NT-Pro-B Natriuret Pep Serum Total Protein Total Protein Albumin Whcmt-0-Tsoaxuugu PEP Interpretation LDL Cholesterol Direct HDL Cholesterol PTH Intact Urine Creatinine Urine Total Protein Valproic Acid Crossmatch 10/10/18 10/10/18 10/10/18 00:10 05:00 05:00 WBC 3.3 L RBC 2.99 L Hgb 8.2 L Hct 25.9 L MCH 27 L RDW 19.2 H Lymph % (Auto) Ada % (Auto) 13.2 H Eos % (Auto) 5.8 H Lymph # 0.5 L Ada # Seg Neutrophils % Seg Neuts % (Manual) Lymphocytes % (Manual) Seg Neutrophils # Lymphocytes # (Manual) APTT D-Dimer Heparin Anti-Xa Level POC ABG pH POC ABG pCO2 POC ABG pO2 Sodium Potassium 5.6 H Chloride 110.8 H Carbon Dioxide BUN 50 H Creatinine 2.2 H Glucose 52 L POC Glucose 60 L Hemoglobin A1c Lactic Acid Calcium 8.1 L Phosphorus Magnesium Alkaline Phosphatase Total Creatine Kinase CK-MB (CK-2) CK-MB (CK-2) Rel Index Troponin T NT-Pro-B Natriuret Pep Serum Total Protein Total Protein Albumin Xzruc-7-Cmaduuico PEP Interpretation LDL Cholesterol Direct HDL Cholesterol PTH Intact Urine Creatinine Urine Total Protein Valproic Acid Crossmatch 10/10/18 10/10/18 10/10/18 05:00 06:11 11:30 WBC RBC Hgb Hct MCH RDW Lymph % (Auto) Ada % (Auto) Eos % (Auto) Lymph # Ada # Seg Neutrophils % Seg Neuts % (Manual) Lymphocytes % (Manual) Seg Neutrophils # Lymphocytes # (Manual) APTT D-Dimer Heparin Anti-Xa Level POC ABG pH POC ABG pCO2 POC ABG pO2 Sodium Potassium Chloride Carbon Dioxide BUN Creatinine Glucose POC Glucose 57 L 48 L Hemoglobin A1c 8.2 H Lactic Acid Calcium Phosphorus Magnesium Alkaline Phosphatase Total Creatine Kinase CK-MB (CK-2) CK-MB (CK-2) Rel Index Troponin T NT-Pro-B Natriuret Pep Serum Total Protein Total Protein Albumin Msdfh-6-Azxthccdq PEP Interpretation LDL Cholesterol Direct HDL Cholesterol PTH Intact Urine Creatinine Urine Total Protein Valproic Acid Crossmatch 10/10/18 10/10/18 10/10/18 12:22 13:36 13:36 WBC RBC Hgb Hct MCH RDW Lymph % (Auto) Ada % (Auto) Eos % (Auto) Lymph # Ada # Seg Neutrophils % Seg Neuts % (Manual) Lymphocytes % (Manual) Seg Neutrophils # Lymphocytes # (Manual) APTT D-Dimer 927.57 H Heparin Anti-Xa Level POC ABG pH 7.286 L POC ABG pCO2 47.3 H POC ABG pO2 65 L Sodium Potassium Chloride Carbon Dioxide BUN Creatinine Glucose POC Glucose Hemoglobin A1c Lactic Acid 0.60 L Calcium Phosphorus Magnesium Alkaline Phosphatase Total Creatine Kinase CK-MB (CK-2) CK-MB (CK-2) Rel Index Troponin T NT-Pro-B Natriuret Pep Serum Total Protein Total Protein Albumin Wvegh-1-Cqwrjobdn PEP Interpretation LDL Cholesterol Direct HDL Cholesterol PTH Intact Urine Creatinine Urine Total Protein Valproic Acid Crossmatch 10/10/18 10/10/18 10/10/18 16:42 21:12 22:30 WBC RBC Hgb Hct MCH RDW Lymph % (Auto) Ada % (Auto) Eos % (Auto) Lymph # Ada # Seg Neutrophils % Seg Neuts % (Manual) Lymphocytes % (Manual) Seg Neutrophils # Lymphocytes # (Manual) APTT D-Dimer Heparin Anti-Xa Level POC ABG pH POC ABG pCO2 POC ABG pO2 Sodium Potassium Chloride Carbon Dioxide BUN Creatinine Glucose POC Glucose 122 H 119 H Hemoglobin A1c Lactic Acid Calcium Phosphorus Magnesium Alkaline Phosphatase Total Creatine Kinase CK-MB (CK-2) CK-MB (CK-2) Rel Index Troponin T NT-Pro-B Natriuret Pep Serum Total Protein Total Protein Albumin Oyrbc-4-Puibtohoi PEP Interpretation LDL Cholesterol Direct HDL Cholesterol PTH Intact Urine Creatinine 118.6 H Urine Total Protein 152 H Valproic Acid Crossmatch 10/11/18 10/11/18 10/11/18 04:31 04:31 13:15 WBC RBC Hgb 8.7 L Hct 27.9 L MCH RDW Lymph % (Auto) Ada % (Auto) Eos % (Auto) Lymph # Ada # Seg Neutrophils % Seg Neuts % (Manual) Lymphocytes % (Manual) Seg Neutrophils # Lymphocytes # (Manual) APTT D-Dimer Heparin Anti-Xa Level POC ABG pH POC ABG pCO2 POC ABG pO2 Sodium Potassium 6.6 H* 6.4 H* Chloride Carbon Dioxide BUN 55 H Creatinine 2.9 H Glucose POC Glucose Hemoglobin A1c Lactic Acid Calcium 7.6 L Phosphorus Magnesium Alkaline Phosphatase Total Creatine Kinase CK-MB (CK-2) CK-MB (CK-2) Rel Index Troponin T NT-Pro-B Natriuret Pep Serum Total Protein Total Protein Albumin Jpvul-6-Vkqjgzlkr PEP Interpretation LDL Cholesterol Direct HDL Cholesterol PTH Intact Urine Creatinine Urine Total Protein Valproic Acid Crossmatch 10/11/18 10/11/18 10/12/18 20:45 22:37 04:25 WBC RBC Hgb Hct MCH RDW Lymph % (Auto) Ada % (Auto) Eos % (Auto) Lymph # Ada # Seg Neutrophils % Seg Neuts % (Manual) Lymphocytes % (Manual) Seg Neutrophils # Lymphocytes # (Manual) APTT D-Dimer Heparin Anti-Xa Level POC ABG pH POC ABG pCO2 POC ABG pO2 Sodium Potassium Chloride Carbon Dioxide BUN 37 H 38 H Creatinine 2.4 H 2.3 H Glucose POC Glucose 117 H Hemoglobin A1c Lactic Acid Calcium 7.5 L 7.6 L Phosphorus Magnesium Alkaline Phosphatase 261 H Total Creatine Kinase CK-MB (CK-2) CK-MB (CK-2) Rel Index Troponin T NT-Pro-B Natriuret Pep Serum Total Protein Total Protein 6.2 L Albumin 3.0 L Pixqj-4-Fzurgfbrh PEP Interpretation LDL Cholesterol Direct HDL Cholesterol PTH Intact Urine Creatinine Urine Total Protein Valproic Acid Crossmatch 10/12/18 10/12/18 10/13/18 10:02 21:33 03:28 WBC RBC Hgb 7.6 L 7.7 L Hct 24.1 L 23.8 L MCH RDW Lymph % (Auto) Ada % (Auto) Eos % (Auto) Lymph # Ada # Seg Neutrophils % Seg Neuts % (Manual) Lymphocytes % (Manual) Seg Neutrophils # Lymphocytes # (Manual) APTT D-Dimer Heparin Anti-Xa Level POC ABG pH POC ABG pCO2 POC ABG pO2 Sodium Potassium Chloride Carbon Dioxide BUN Creatinine Glucose POC Glucose 109 H Hemoglobin A1c Lactic Acid Calcium Phosphorus Magnesium Alkaline Phosphatase Total Creatine Kinase CK-MB (CK-2) CK-MB (CK-2) Rel Index Troponin T NT-Pro-B Natriuret Pep Serum Total Protein Total Protein Albumin Llprq-9-Kemhfxvsw PEP Interpretation LDL Cholesterol Direct HDL Cholesterol PTH Intact Urine Creatinine Urine Total Protein Valproic Acid Crossmatch 10/13/18 10/13/18 10/13/18 03:28 08:27 15:04 WBC RBC Hgb Hct MCH RDW Lymph % (Auto) Ada % (Auto) Eos % (Auto) Lymph # Ada # Seg Neutrophils % Seg Neuts % (Manual) Lymphocytes % (Manual) Seg Neutrophils # Lymphocytes # (Manual) APTT D-Dimer Heparin Anti-Xa Level POC ABG pH POC ABG pCO2 POC ABG pO2 Sodium Potassium Chloride Carbon Dioxide BUN 38 H Creatinine 1.9 H Glucose POC Glucose 136 H 160 H Hemoglobin A1c Lactic Acid Calcium 8.3 L Phosphorus Magnesium Alkaline Phosphatase Total Creatine Kinase CK-MB (CK-2) CK-MB (CK-2) Rel Index Troponin T NT-Pro-B Natriuret Pep Serum Total Protein Total Protein Albumin Wyhoy-3-Yspeeuxoc PEP Interpretation LDL Cholesterol Direct HDL Cholesterol PTH Intact Urine Creatinine Urine Total Protein Valproic Acid Crossmatch 10/13/18 10/13/18 10/14/18 16:53 23:06 06:06 WBC RBC Hgb Hct MCH RDW Lymph % (Auto) Ada % (Auto) Eos % (Auto) Lymph # Ada # Seg Neutrophils % Seg Neuts % (Manual) Lymphocytes % (Manual) Seg Neutrophils # Lymphocytes # (Manual) APTT D-Dimer Heparin Anti-Xa Level POC ABG pH POC ABG pCO2 POC ABG pO2 Sodium Potassium Chloride 107.7 H Carbon Dioxide BUN 39 H Creatinine 1.8 H Glucose 116 H POC Glucose 161 H 213 H Hemoglobin A1c Lactic Acid Calcium Phosphorus Magnesium 2.40 H Alkaline Phosphatase Total Creatine Kinase CK-MB (CK-2) CK-MB (CK-2) Rel Index Troponin T NT-Pro-B Natriuret Pep Serum Total Protein Total Protein Albumin Chent-7-Ptcstnlpc PEP Interpretation LDL Cholesterol Direct HDL Cholesterol PTH Intact Urine Creatinine Urine Total Protein Valproic Acid Crossmatch 10/14/18 10/14/18 10/14/18 06:34 11:01 13:50 WBC RBC Hgb 7.8 L Hct 24.8 L MCH RDW Lymph % (Auto) Ada % (Auto) Eos % (Auto) Lymph # Ada # Seg Neutrophils % Seg Neuts % (Manual) Lymphocytes % (Manual) Seg Neutrophils # Lymphocytes # (Manual) APTT D-Dimer Heparin Anti-Xa Level POC ABG pH POC ABG pCO2 POC ABG pO2 Sodium Potassium Chloride Carbon Dioxide BUN Creatinine Glucose POC Glucose 118 H 67 L Hemoglobin A1c Lactic Acid Calcium Phosphorus Magnesium Alkaline Phosphatase Total Creatine Kinase CK-MB (CK-2) CK-MB (CK-2) Rel Index Troponin T NT-Pro-B Natriuret Pep Serum Total Protein Total Protein Albumin Meanb-4-Tgihwwbdt PEP Interpretation LDL Cholesterol Direct HDL Cholesterol PTH Intact Urine Creatinine Urine Total Protein Valproic Acid Crossmatch 10/14/18 10/15/18 10/15/18 21:37 05:39 05:39 WBC RBC Hgb 7.6 L Hct 23.5 L MCH RDW Lymph % (Auto) Ada % (Auto) Eos % (Auto) Lymph # Ada # Seg Neutrophils % Seg Neuts % (Manual) Lymphocytes % (Manual) Seg Neutrophils # Lymphocytes # (Manual) APTT D-Dimer Heparin Anti-Xa Level POC ABG pH POC ABG pCO2 POC ABG pO2 Sodium Potassium Chloride Carbon Dioxide BUN Creatinine Glucose POC Glucose 125 H Hemoglobin A1c Lactic Acid Calcium Phosphorus Magnesium Alkaline Phosphatase Total Creatine Kinase CK-MB (CK-2) CK-MB (CK-2) Rel Index Troponin T NT-Pro-B Natriuret Pep Serum Total Protein 5.6 L Total Protein Albumin 2.5 L Xypjq-5-Yqmcfozev 0.4 H PEP Interpretation see below H LDL Cholesterol Direct HDL Cholesterol PTH Intact Urine Creatinine Urine Total Protein Valproic Acid Crossmatch 10/15/18 10/15/18 10/15/18 05:39 06:27 07:48 WBC RBC Hgb Hct MCH RDW Lymph % (Auto) Ada % (Auto) Eos % (Auto) Lymph # Ada # Seg Neutrophils % Seg Neuts % (Manual) Lymphocytes % (Manual) Seg Neutrophils # Lymphocytes # (Manual) APTT D-Dimer Heparin Anti-Xa Level POC ABG pH POC ABG pCO2 POC ABG pO2 Sodium Potassium Chloride Carbon Dioxide BUN 45 H Creatinine 2.1 H Glucose 59 L POC Glucose 46 L 65 L Hemoglobin A1c Lactic Acid Calcium 8.3 L Phosphorus Magnesium Alkaline Phosphatase Total Creatine Kinase CK-MB (CK-2) CK-MB (CK-2) Rel Index Troponin T NT-Pro-B Natriuret Pep Serum Total Protein Total Protein Albumin Uafkw-4-Txaqycwzh PEP Interpretation LDL Cholesterol Direct HDL Cholesterol PTH Intact Urine Creatinine Urine Total Protein Valproic Acid Crossmatch 10/15/18 10/15/18 10/15/18 13:21 13:24 21:23 WBC RBC Hgb Hct MCH RDW Lymph % (Auto) Ada % (Auto) Eos % (Auto) Lymph # Ada # Seg Neutrophils % Seg Neuts % (Manual) Lymphocytes % (Manual) Seg Neutrophils # Lymphocytes # (Manual) APTT D-Dimer Heparin Anti-Xa Level POC ABG pH POC ABG pCO2 48.4 H POC ABG pO2 77 L Sodium Potassium Chloride Carbon Dioxide BUN Creatinine Glucose POC Glucose 106 H 160 H Hemoglobin A1c Lactic Acid Calcium Phosphorus Magnesium Alkaline Phosphatase Total Creatine Kinase CK-MB (CK-2) CK-MB (CK-2) Rel Index Troponin T NT-Pro-B Natriuret Pep Serum Total Protein Total Protein Albumin Bebce-3-Qryvgsytr PEP Interpretation LDL Cholesterol Direct HDL Cholesterol PTH Intact Urine Creatinine Urine Total Protein Valproic Acid Crossmatch 10/16/18 10/16/18 10/16/18 06:25 06:49 21:42 WBC RBC Hgb Hct MCH RDW Lymph % (Auto) Ada % (Auto) Eos % (Auto) Lymph # Ada # Seg Neutrophils % Seg Neuts % (Manual) Lymphocytes % (Manual) Seg Neutrophils # Lymphocytes # (Manual) APTT D-Dimer Heparin Anti-Xa Level POC ABG pH POC ABG pCO2 POC ABG pO2 Sodium Potassium Chloride 107.7 H Carbon Dioxide BUN 53 H Creatinine 2.2 H Glucose 61 L POC Glucose 51 L 153 H Hemoglobin A1c Lactic Acid Calcium Phosphorus Magnesium Alkaline Phosphatase Total Creatine Kinase CK-MB (CK-2) CK-MB (CK-2) Rel Index Troponin T NT-Pro-B Natriuret Pep Serum Total Protein Total Protein Albumin Cpjko-9-Kinnndbvj PEP Interpretation LDL Cholesterol Direct HDL Cholesterol PTH Intact Urine Creatinine Urine Total Protein Valproic Acid Crossmatch 10/17/18 10/17/18 10/17/18 05:22 05:22 05:22 WBC RBC Hgb 7.6 L Hct 23.1 L MCH RDW Lymph % (Auto) Ada % (Auto) Eos % (Auto) Lymph # Ada # Seg Neutrophils % Seg Neuts % (Manual) Lymphocytes % (Manual) Seg Neutrophils # Lymphocytes # (Manual) APTT D-Dimer Heparin Anti-Xa Level POC ABG pH POC ABG pCO2 POC ABG pO2 Sodium Potassium Chloride Carbon Dioxide BUN 59 H Creatinine 2.2 H Glucose 111 H POC Glucose Hemoglobin A1c Lactic Acid Calcium Phosphorus Magnesium Alkaline Phosphatase Total Creatine Kinase CK-MB (CK-2) CK-MB (CK-2) Rel Index Troponin T NT-Pro-B Natriuret Pep Serum Total Protein Total Protein Albumin Sewqg-7-Cmghexmnr PEP Interpretation LDL Cholesterol Direct HDL Cholesterol PTH Intact 152.8 H Urine Creatinine Urine Total Protein Valproic Acid Crossmatch 10/17/18 10/17/18 10/18/18 12:17 21:32 06:36 WBC RBC Hgb Hct MCH RDW Lymph % (Auto) Ada % (Auto) Eos % (Auto) Lymph # Ada # Seg Neutrophils % Seg Neuts % (Manual) Lymphocytes % (Manual) Seg Neutrophils # Lymphocytes # (Manual) APTT D-Dimer Heparin Anti-Xa Level POC ABG pH POC ABG pCO2 POC ABG pO2 Sodium Potassium Chloride Carbon Dioxide BUN Creatinine Glucose POC Glucose 130 H 402 H 217 H Hemoglobin A1c Lactic Acid Calcium Phosphorus Magnesium Alkaline Phosphatase Total Creatine Kinase CK-MB (CK-2) CK-MB (CK-2) Rel Index Troponin T NT-Pro-B Natriuret Pep Serum Total Protein Total Protein Albumin Ajmcn-0-Ypgeaoqpb PEP Interpretation LDL Cholesterol Direct HDL Cholesterol PTH Intact Urine Creatinine Urine Total Protein Valproic Acid Crossmatch 10/18/18 10/18/18 10/18/18 08:19 12:24 18:30 WBC RBC Hgb Hct MCH RDW Lymph % (Auto) Ada % (Auto) Eos % (Auto) Lymph # Ada # Seg Neutrophils % Seg Neuts % (Manual) Lymphocytes % (Manual) Seg Neutrophils # Lymphocytes # (Manual) APTT D-Dimer Heparin Anti-Xa Level POC ABG pH POC ABG pCO2 POC ABG pO2 Sodium Potassium 5.6 H Chloride 107.3 H Carbon Dioxide BUN 62 H Creatinine 2.3 H Glucose 201 H POC Glucose 159 H 136 H Hemoglobin A1c Lactic Acid Calcium Phosphorus Magnesium Alkaline Phosphatase Total Creatine Kinase CK-MB (CK-2) CK-MB (CK-2) Rel Index Troponin T NT-Pro-B Natriuret Pep Serum Total Protein Total Protein Albumin Xhdaw-3-Ryylqigil PEP Interpretation LDL Cholesterol Direct HDL Cholesterol PTH Intact Urine Creatinine Urine Total Protein Valproic Acid Crossmatch 10/19/18 10/19/18 10/19/18 04:53 04:53 11:33 WBC RBC 2.74 L Hgb 7.5 L Hct 23.0 L MCH 27 L RDW 17.9 H Lymph % (Auto) 11.3 L Ada % (Auto) 14.5 H Eos % (Auto) Lymph # 1.0 L Ada # 1.2 H Seg Neutrophils % 71.4 H Seg Neuts % (Manual) Lymphocytes % (Manual) Seg Neutrophils # Lymphocytes # (Manual) APTT D-Dimer Heparin Anti-Xa Level POC ABG pH POC ABG pCO2 POC ABG pO2 Sodium Potassium Chloride Carbon Dioxide 33 H BUN 33 H Creatinine Glucose 52 L POC Glucose 148 H Hemoglobin A1c Lactic Acid Calcium Phosphorus Magnesium Alkaline Phosphatase Total Creatine Kinase CK-MB (CK-2) CK-MB (CK-2) Rel Index Troponin T NT-Pro-B Natriuret Pep Serum Total Protein Total Protein Albumin Ppqgk-6-Wfeohldgv PEP Interpretation LDL Cholesterol Direct HDL Cholesterol PTH Intact Urine Creatinine Urine Total Protein Valproic Acid Crossmatch 10/19/18 10/20/18 10/20/18 21:10 05:30 18:14 WBC RBC Hgb Hct MCH RDW Lymph % (Auto) Ada % (Auto) Eos % (Auto) Lymph # Ada # Seg Neutrophils % Seg Neuts % (Manual) Lymphocytes % (Manual) Seg Neutrophils # Lymphocytes # (Manual) APTT D-Dimer Heparin Anti-Xa Level POC ABG pH POC ABG pCO2 POC ABG pO2 Sodium Potassium 5.1 H Chloride Carbon Dioxide 31 H BUN 40 H Creatinine 1.6 H Glucose POC Glucose 132 H 114 H Hemoglobin A1c Lactic Acid Calcium Phosphorus Magnesium Alkaline Phosphatase Total Creatine Kinase CK-MB (CK-2) CK-MB (CK-2) Rel Index Troponin T NT-Pro-B Natriuret Pep Serum Total Protein Total Protein Albumin Jmzkv-4-Pelokynig PEP Interpretation LDL Cholesterol Direct HDL Cholesterol PTH Intact Urine Creatinine Urine Total Protein Valproic Acid Crossmatch 10/20/18 10/21/18 10/21/18 20:57 06:26 06:26 WBC RBC 2.76 L Hgb 7.7 L Hct 23.1 L MCH RDW 18.2 H Lymph % (Auto) Ada % (Auto) Eos % (Auto) Lymph # Ada # Seg Neutrophils % Seg Neuts % (Manual) 79.0 H Lymphocytes % (Manual) 9.0 L Seg Neutrophils # Lymphocytes # (Manual) 0.7 L APTT D-Dimer Heparin Anti-Xa Level POC ABG pH POC ABG pCO2 POC ABG pO2 Sodium 146 H Potassium Chloride Carbon Dioxide 31 H BUN 41 H Creatinine 1.6 H Glucose POC Glucose 196 H Hemoglobin A1c Lactic Acid Calcium Phosphorus 4.70 H Magnesium Alkaline Phosphatase Total Creatine Kinase CK-MB (CK-2) CK-MB (CK-2) Rel Index Troponin T NT-Pro-B Natriuret Pep Serum Total Protein Total Protein Albumin Scocq-8-Xdybdkdjx PEP Interpretation LDL Cholesterol Direct HDL Cholesterol PTH Intact Urine Creatinine Urine Total Protein Valproic Acid Crossmatch 10/21/18 10/21/18 10/21/18 06:26 08:52 17:00 WBC RBC Hgb Hct MCH RDW Lymph % (Auto) Ada % (Auto) Eos % (Auto) Lymph # [place] # Seg Neutrophils % Seg Neuts % (Manual) Lymphocytes % (Manual) Seg Neutrophils # Lymphocytes # (Manual) APTT D-Dimer Heparin Anti-Xa Level POC ABG pH POC ABG pCO2 POC ABG pO2 Sodium Potassium Chloride Carbon Dioxide BUN Creatinine Glucose POC Glucose 172 H Hemoglobin A1c Lactic Acid Calcium Phosphorus Magnesium Alkaline Phosphatase 258 H Total Creatine Kinase CK-MB (CK-2) CK-MB (CK-2) Rel Index Troponin T NT-Pro-B Natriuret Pep Serum Total Protein Total Protein Albumin Mkena-8-Bpglxvors PEP Interpretation LDL Cholesterol Direct HDL Cholesterol PTH Intact Urine Creatinine Urine Total Protein Valproic Acid 46.4 L Crossmatch 10/21/18 10/22/18 10/22/18 23:37 05:25 05:25 WBC RBC 2.17 L Hgb 6.1 L Hct 20.7 L MCH RDW 18.2 H Lymph % (Auto) Ada % (Auto) 14.8 H Eos % (Auto) Lymph # Ada # 1.2 H Seg Neutrophils % Seg Neuts % (Manual) Lymphocytes % (Manual) Seg Neutrophils # Lymphocytes # (Manual) APTT D-Dimer Heparin Anti-Xa Level POC ABG pH POC ABG pCO2 POC ABG pO2 Sodium Potassium Chloride Carbon Dioxide 31 H BUN 45 H Creatinine 1.7 H Glucose 143 H POC Glucose 186 H Hemoglobin A1c Lactic Acid Calcium 8.3 L Phosphorus Magnesium Alkaline Phosphatase Total Creatine Kinase CK-MB (CK-2) CK-MB (CK-2) Rel Index Troponin T NT-Pro-B Natriuret Pep Serum Total Protein Total Protein Albumin Qjmkz-2-Uybkxqqbs PEP Interpretation LDL Cholesterol Direct HDL Cholesterol PTH Intact Urine Creatinine Urine Total Protein Valproic Acid Crossmatch 10/22/18 10/22/18 10/22/18 10:31 12:27 17:13 WBC RBC Hgb Hct MCH RDW Lymph % (Auto) Ada % (Auto) Eos % (Auto) Lymph # [place] # Seg Neutrophils % Seg Neuts % (Manual) Lymphocytes % (Manual) Seg Neutrophils # Lymphocytes # (Manual) APTT D-Dimer Heparin Anti-Xa Level POC ABG pH POC ABG pCO2 POC ABG pO2 Sodium Potassium Chloride Carbon Dioxide BUN Creatinine Glucose POC Glucose 198 H 137 H Hemoglobin A1c Lactic Acid Calcium Phosphorus Magnesium Alkaline Phosphatase Total Creatine Kinase CK-MB (CK-2) CK-MB (CK-2) Rel Index Troponin T NT-Pro-B Natriuret Pep Serum Total Protein Total Protein Albumin Bvrmj-9-Zphcpkmte PEP Interpretation LDL Cholesterol Direct HDL Cholesterol PTH Intact Urine Creatinine Urine Total Protein Valproic Acid Crossmatch See Detail 10/22/18 10/23/18 10/23/18 20:35 06:00 09:07 WBC 11.1 H RBC 2.99 L Hgb 8.4 L Hct 25.7 L MCH RDW 17.9 H Lymph % (Auto) Ada % (Auto) Eos % (Auto) Lymph # Ada # Seg Neutrophils % Seg Neuts % (Manual) Lymphocytes % (Manual) Seg Neutrophils # Lymphocytes # (Manual) APTT D-Dimer Heparin Anti-Xa Level POC ABG pH POC ABG pCO2 POC ABG pO2 Sodium Potassium Chloride Carbon Dioxide BUN Creatinine Glucose POC Glucose 196 H 246 H Hemoglobin A1c Lactic Acid Calcium Phosphorus Magnesium Alkaline Phosphatase Total Creatine Kinase CK-MB (CK-2) CK-MB (CK-2) Rel Index Troponin T NT-Pro-B Natriuret Pep Serum Total Protein Total Protein Albumin Egjre-1-Swkntpguq PEP Interpretation LDL Cholesterol Direct HDL Cholesterol PTH Intact Urine Creatinine Urine Total Protein Valproic Acid Crossmatch 10/23/18 10/23/18 10/23/18 09:07 11:37 17:16 WBC RBC Hgb Hct MCH RDW Lymph % (Auto) Ada % (Auto) Eos % (Auto) Lymph # Ada # Seg Neutrophils % Seg Neuts % (Manual) Lymphocytes % (Manual) Seg Neutrophils # Lymphocytes # (Manual) APTT D-Dimer Heparin Anti-Xa Level POC ABG pH POC ABG pCO2 POC ABG pO2 Sodium Potassium 5.2 H Chloride Carbon Dioxide BUN 48 H Creatinine 2.4 H Glucose 247 H POC Glucose 222 H 196 H Hemoglobin A1c Lactic Acid Calcium Phosphorus Magnesium Alkaline Phosphatase Total Creatine Kinase CK-MB (CK-2) CK-MB (CK-2) Rel Index Troponin T NT-Pro-B Natriuret Pep Serum Total Protein Total Protein Albumin Asyxs-0-Pdhxzkync PEP Interpretation LDL Cholesterol Direct HDL Cholesterol PTH Intact Urine Creatinine Urine Total Protein Valproic Acid Crossmatch 10/23/18 10/24/18 10/24/18 21:39 04:13 04:13 WBC RBC 2.69 L Hgb 7.7 L Hct 23.4 L MCH RDW 18.3 H Lymph % (Auto) Ada % (Auto) Eos % (Auto) Lymph # Ada # Seg Neutrophils % Seg Neuts % (Manual) 77.0 H Lymphocytes % (Manual) 12.0 L Seg Neutrophils # Lymphocytes # (Manual) APTT D-Dimer Heparin Anti-Xa Level POC ABG pH POC ABG pCO2 POC ABG pO2 Sodium Potassium 5.1 H Chloride Carbon Dioxide BUN 53 H Creatinine 2.0 H Glucose 224 H POC Glucose 234 H Hemoglobin A1c Lactic Acid Calcium 8.3 L Phosphorus Magnesium Alkaline Phosphatase Total Creatine Kinase CK-MB (CK-2) CK-MB (CK-2) Rel Index Troponin T NT-Pro-B Natriuret Pep Serum Total Protein Total Protein Albumin Ztdeg-1-Sfqsndtaz PEP Interpretation LDL Cholesterol Direct HDL Cholesterol PTH Intact Urine Creatinine Urine Total Protein Valproic Acid Crossmatch 10/24/18 10/24/18 10/24/18 07:51 11:41 17:38 WBC RBC Hgb Hct MCH RDW Lymph % (Auto) Ada % (Auto) Eos % (Auto) Lymph # Ada # Seg Neutrophils % Seg Neuts % (Manual) Lymphocytes % (Manual) Seg Neutrophils # Lymphocytes # (Manual) APTT D-Dimer Heparin Anti-Xa Level POC ABG pH POC ABG pCO2 POC ABG pO2 Sodium Potassium Chloride Carbon Dioxide BUN Creatinine Glucose POC Glucose 295 H 287 H 163 H Hemoglobin A1c Lactic Acid Calcium Phosphorus Magnesium Alkaline Phosphatase Total Creatine Kinase CK-MB (CK-2) CK-MB (CK-2) Rel Index Troponin T NT-Pro-B Natriuret Pep Serum Total Protein Total Protein Albumin Juzxa-6-[id number] PEP Interpretation LDL Cholesterol Direct HDL Cholesterol PTH Intact Urine Creatinine Urine Total Protein Valproic Acid Crossmatch 10/24/18 10/25/18 10/25/18 20:50 05:41 05:41 WBC 12.9 H RBC 2.83 L Hgb 7.9 L Hct 24.7 L MCH RDW 18.1 H Lymph % (Auto) Ada % (Auto) Eos % (Auto) Lymph # Ada # Seg Neutrophils % Seg Neuts % (Manual) Lymphocytes % (Manual) Seg Neutrophils # Lymphocytes # (Manual) APTT D-Dimer Heparin Anti-Xa Level POC ABG pH POC ABG pCO2 POC ABG pO2 Sodium Potassium 5.7 H Chloride Carbon Dioxide BUN 62 H Creatinine 2.2 H Glucose 135 H POC Glucose 117 H Hemoglobin A1c Lactic Acid Calcium Phosphorus Magnesium Alkaline Phosphatase Total Creatine Kinase CK-MB (CK-2) CK-MB (CK-2) Rel Index Troponin T NT-Pro-B Natriuret Pep Serum Total Protein Total Protein Albumin Qdcdi-3-Qcikcjnev PEP Interpretation LDL Cholesterol Direct HDL Cholesterol PTH Intact Urine Creatinine Urine Total Protein Valproic Acid Crossmatch 10/25/18 10/25/18 10/25/18 07:58 11:18 16:46 WBC RBC Hgb Hct MCH RDW Lymph % (Auto) Ada % (Auto) Eos % (Auto) Lymph # Ada # Seg Neutrophils % Seg Neuts % (Manual) Lymphocytes % (Manual) Seg Neutrophils # Lymphocytes # (Manual) APTT D-Dimer Heparin Anti-Xa Level POC ABG pH POC ABG pCO2 POC ABG pO2 Sodium Potassium Chloride Carbon Dioxide BUN Creatinine Glucose POC Glucose 203 H 223 H 199 H Hemoglobin A1c Lactic Acid Calcium Phosphorus Magnesium Alkaline Phosphatase Total Creatine Kinase CK-MB (CK-2) CK-MB (CK-2) Rel Index Troponin T NT-Pro-B Natriuret Pep Serum Total Protein Total Protein Albumin Ivzqq-9-Grliiduox PEP Interpretation LDL Cholesterol Direct HDL Cholesterol PTH Intact Urine Creatinine Urine Total Protein Valproic Acid Crossmatch 10/25/18 10/25/18 10/26/18 19:44 22:13 05:31 WBC RBC 2.81 L Hgb 8.1 L Hct 24.7 L MCH RDW 18.3 H Lymph % (Auto) 11.3 L Ada % (Auto) 15.8 H Eos % (Auto) Lymph # Ada # 1.7 H Seg Neutrophils % Seg Neuts % (Manual) Lymphocytes % (Manual) Seg Neutrophils # Lymphocytes # (Manual) APTT D-Dimer Heparin Anti-Xa Level POC ABG pH POC ABG pCO2 POC ABG pO2 Sodium Potassium 5.3 H Chloride Carbon Dioxide BUN Creatinine Glucose POC Glucose 310 H Hemoglobin A1c Lactic Acid Calcium Phosphorus Magnesium Alkaline Phosphatase Total Creatine Kinase CK-MB (CK-2) CK-MB (CK-2) Rel Index Troponin T NT-Pro-B Natriuret Pep Serum Total Protein Total Protein Albumin Tufte-8-Unrckydza PEP Interpretation LDL Cholesterol Direct HDL Cholesterol PTH Intact Urine Creatinine Urine Total Protein Valproic Acid Crossmatch 10/26/18 10/26/18 10/26/18 05:31 07:58 12:58 WBC RBC Hgb Hct MCH RDW Lymph % (Auto) Ada % (Auto) Eos % (Auto) Lymph # Ada # Seg Neutrophils % Seg Neuts % (Manual) Lymphocytes % (Manual) Seg Neutrophils # Lymphocytes # (Manual) APTT D-Dimer Heparin Anti-Xa Level POC ABG pH POC ABG pCO2 POC ABG pO2 Sodium Potassium 5.3 H Chloride Carbon Dioxide BUN 68 H Creatinine 2.2 H Glucose 187 H POC Glucose 145 H 263 H Hemoglobin A1c Lactic Acid Calcium Phosphorus Magnesium Alkaline Phosphatase Total Creatine Kinase CK-MB (CK-2) CK-MB (CK-2) Rel Index Troponin T NT-Pro-B Natriuret Pep Serum Total Protein Total Protein Albumin Wjxaj-0-Pbypwwucf PEP Interpretation LDL Cholesterol Direct HDL Cholesterol PTH Intact Urine Creatinine Urine Total Protein Valproic Acid Crossmatch 10/26/18 10/26/18 10/27/18 16:24 21:46 05:14 WBC 12.7 H RBC 2.94 L Hgb 8.2 L Hct 25.5 L MCH RDW 18.3 H Lymph % (Auto) 10.0 L Ada % (Auto) 14.3 H Eos % (Auto) Lymph # Ada # 1.8 H Seg Neutrophils % 73.4 H Seg Neuts % (Manual) Lymphocytes % (Manual) Seg Neutrophils # 9.3 H Lymphocytes # (Manual) APTT D-Dimer Heparin Anti-Xa Level POC ABG pH POC ABG pCO2 POC ABG pO2 Sodium Potassium Chloride Carbon Dioxide BUN Creatinine Glucose POC Glucose 188 H 273 H Hemoglobin A1c Lactic Acid Calcium Phosphorus Magnesium Alkaline Phosphatase Total Creatine Kinase CK-MB (CK-2) CK-MB (CK-2) Rel Index Troponin T NT-Pro-B Natriuret Pep Serum Total Protein Total Protein Albumin Syuuj-1-Wswsclllu PEP Interpretation LDL Cholesterol Direct HDL Cholesterol PTH Intact Urine Creatinine Urine Total Protein Valproic Acid Crossmatch 10/27/18 10/27/18 10/27/18 05:14 09:08 11:56 WBC RBC Hgb Hct MCH RDW Lymph % (Auto) Ada % (Auto) Eos % (Auto) Lymph # Ada # Seg Neutrophils % Seg Neuts % (Manual) Lymphocytes % (Manual) Seg Neutrophils # Lymphocytes # (Manual) APTT D-Dimer Heparin Anti-Xa Level POC ABG pH POC ABG pCO2 POC ABG pO2 Sodium 136 L Potassium 5.1 H Chloride 97.7 L Carbon Dioxide BUN 67 H Creatinine 1.7 H Glucose POC Glucose 131 H 169 H Hemoglobin A1c Lactic Acid Calcium Phosphorus Magnesium Alkaline Phosphatase Total Creatine Kinase CK-MB (CK-2) CK-MB (CK-2) Rel Index Troponin T NT-Pro-B Natriuret Pep Serum Total Protein Total Protein Albumin Ebuhr-2-Lisksiotw PEP Interpretation LDL Cholesterol Direct HDL Cholesterol PTH Intact Urine Creatinine Urine Total Protein Valproic Acid Crossmatch Allied health notes reviewed: nursing
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
[2018-10-27] MEDS: ZAROXOLYN PO SCH (18:12)
[2018-10-27] MEDS: PERCOCET 5/325 PO PRN (18:20)
[2018-10-27] MEDS: RisperDAL PO SCH (23:03)
[2018-10-27] MEDS: PRAVACHOL PO SCH (23:03)
[2018-10-28 03:44] LABS: Basophils % (Auto) 0.3 % (0.0-1.8); Eosinophils # (Auto) 0.2 K/mm3 (0.0-0.4); Eosinophils % (Auto) 1.9 % (0.0-4.3); Hematocrit 24.6 % (35.5-45.6); Hemoglobin 8.1 gm/dl (11.8-15.2); Lymphocytes # (Auto) 1.4 K/mm3 (1.2-5.4); Lymphocytes % (Auto) 14.4 % (13.4-35.0); Mean Corpuscular HGB Conc 33 % (32-34); Mean Corpuscular Volume 87 fl (84-94); Monocytes # (Auto) 1.3 K/mm3 (0.0-0.8); Monocytes % (Auto) 13.8 % (0.0-7.3); Platelet Count 371 K/mm3 (140-440); Red Blood Count 2.82 M/mm3 (3.65-5.03); Red Cell Distribution Width 18.6 % (13.2-15.2)
[2018-10-28 03:52] LABS: INR 0.99 (0.87-1.13)
[2018-10-28 03:56] LABS: BUN/Creatinine Ratio 41; Blood Urea Nitrogen 62 mg/dL (9-20); Calcium 8.7 mg/dL (8.4-10.2); Hemolysis Index 0
[2018-10-28] MEDS: HEPARIN SUB-Q SCH ×3 (06:21→22:43)
[2018-10-28] MEDS: HumuLIN R SUB-Q SCH ×3 (07:30→16:30)
[2018-10-28] MEDS: PEPCID PO SCH (09:09)
[2018-10-28] MEDS: ASPIRIN PO SCH (09:09)
[2018-10-28] MEDS: COREG PO SCH ×2 (09:09→22:42)
[2018-10-28] MEDS: SODIUM CHLORIDE FLUSH SYRINGE 10 ML IV SCH ×2 (10:00→22:44)
[2018-10-28] MEDS: FEOSOL PO SCH (10:59)
[2018-10-28] MEDS: KIONEX PO SCH (14:00)
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
--- NOTE | 2018-10-28 14:12 | Progress Note ---
Assessment and Plan Patient alert, awake. Resting on room air.O2 saturation 100%. No acute respiratory distress. Patients V/Q scan reported intermediate probability for PE. Venous doppler studies of legs reported No DVT. Patient repeat ultrasound of chest reported no significant pleural effusions for thoracentesis. Patient anemia stable. Todays HGB 8.1. Patient just came to the room after left hand finger surgery. - Patient Problems (1) CHF (congestive heart failure) Current Visit: Yes Status: Acute Qualifiers: Heart failure type: systolic Heart failure chronicity: acute Qualified Code(s): I50.21 - Acute systolic (congestive) heart failure Plan to address problem: Management as per cardiology. (2) Chest pain Current Visit: Yes Status: Acute Plan to address problem: Management as per cardiology. (3) ACS (acute coronary syndrome) Current Visit: Yes Status: Acute Plan to address problem: Management as per cardiology. (4) ARF (acute renal failure) with tubular necrosis Current Visit: Yes Status: Acute Plan to address problem: Management as per nephrology (5) Encephalopathy Current Visit: Yes Status: Acute Plan to address problem: Management as per primary care. (6) Pleural effusion, right Current Visit: Yes Status: Acute Plan to address problem: Repeat ultrasound of chest reported no significant pleural effusions. So no thoracentesis done. (7) Pulmonary infiltrates on CXR Current Visit: Yes Status: Acute Plan to address problem: Pulmonary infiltrates or atelectasis on the right side. Patient is treated with levaquin. (8) Acute respiratory failure with hypoxia and hypercapnia Current Visit: Yes Status: Acute Plan to address problem: POC ABG pH 7.286 (7.35-7.45) L 10/10/18 12:22 POC ABG pCO2 47.3 (35-45) H 10/10/18 12:22 POC ABG pO2 65 (80-105) L 10/10/18 12:22 POC ABG HCO3 22.5 10/10/18 12:22 POC ABG Total CO2 24 10/10/18 12:22 POC ABG O2 Sat 90 10/10/18 12:22 Recommend O2 2 litres via nasal canula. Brovanna/budesonide aerosol treatments q 12 hours. Albuterol/atrovent aerosol treatments q 6 hours prn for shortness of breath. Repeat ABGs PO2 77 on room air. Continue S/C heparin (9) Anemia Current Visit: Yes Status: Acute Plan to address problem: To days HGB is 8.1. No active signs of bleeding. Anemia likely from chronic kidney disease. Subjective Date of service: 10/28/18 Principal diagnosis: Severe Sepsis with Shock; Acute encephalopathy; MAXIMO; Diabetes II; CMOP Interval history: Patient alert, awake. Resting on room air.O2 saturation 100%. No acute respiratory distress. Patients V/Q scan reported intermediate probability for PE. Venous doppler studies of legs reported No DVT. Patient repeat ultrasound of chest reported no significant pleural effusions for thoracentesis. Patient anemia stable. Todays HGB 8.1. Patient just came to the room after left hand finger surgery. Objective Vital Signs - 12hr 10/28/18 10/28/18 05:47 11:53 Temperature 97.9 F 98.2 F Pulse Rate 69 Respiratory 20 18 Rate Blood Pressure 154/76 143/86 O2 Sat by Pulse 96 99 Oximetry Constitutional: no acute distress, alert, other (middle aged AAM, normocephalic and atraumatic with normal respiratory effort) Eyes: non-icteric ENT: oropharynx moist Neck: supple, no lymphadenopathy, no JVD Effort: normal Ascultation: Bilateral: diminished breath sounds, rales (bases), rhonchi (bases) Percussion: Bilateral: not dull Cardiovascular: regular rate and rhythm Gastrointestinal: normoactive bowel sounds, soft, non-tender, non-distended Integumentary: rash (feet) Extremities: no cyanosis, pulses normal, no ischemia or petechiae, edema (trace to 1+), other (Dressing on left hand finger.) Neurologic: normal mental status, non-focal exam, pupils equal and round, motor strength normal and, other (sensory numbness to feet) Psychiatric: mood appropriate, affect normal, other CBC and BMP: 10/28/18 03:24 10/28/18 03:24 ABG, PT/INR, D-dimer: ABG POC ABG pH 7.359 (7.35-7.45) 10/15/18 13:21 POC ABG pCO2 48.4 (35-45) H 10/15/18 13:21 POC ABG pO2 77 (80-105) L 10/15/18 13:21 POC ABG HCO3 27.3 10/15/18 13:21 POC ABG Total CO2 29 10/15/18 13:21 POC ABG O2 Sat 95 10/15/18 13:21 PT/INR, D-dimer PT 13.5 Sec. (12.2-14.9) 10/28/18 03:24 INR 0.99 (0.87-1.13) 10/28/18 03:24 D-Dimer 927.57 ng/mlDDU (0-234) H 10/10/18 13:36 Abnormal lab findings: Abnormal Labs 10/09/18 10/09/18 10/09/18 11:22 11:22 11:22 WBC 3.3 L RBC 3.03 L Hgb 8.4 L Hct 25.8 L MCH RDW 18.7 H Lymph % (Auto) [place] % (Auto) 12.1 H Eos % (Auto) 4.6 H Lymph # 0.5 L [place] # Seg Neutrophils % Seg Neuts % (Manual) Lymphocytes % (Manual) Seg Neutrophils # Lymphocytes # (Manual) APTT 42.8 H D-Dimer Heparin Anti-Xa Level POC ABG pH POC ABG pCO2 POC ABG pO2 Sodium Potassium 5.2 H Chloride 108.2 H Carbon Dioxide BUN 49 H Creatinine 1.9 H Glucose 153 H POC Glucose Hemoglobin A1c Lactic Acid Calcium Phosphorus Magnesium Alkaline Phosphatase Total Creatine Kinase 481 H CK-MB (CK-2) 20.5 H CK-MB (CK-2) Rel Index 4.2 H Troponin T 0.153 H* NT-Pro-B Natriuret Pep 2963 H Serum Total Protein Total Protein Albumin Xsirl-5-Kqqvmhguv PEP Interpretation LDL Cholesterol Direct 49 L HDL Cholesterol 73 H PTH Intact Urine Creatinine Urine Total Protein Valproic Acid Crossmatch 10/09/18 10/09/18 10/09/18 13:43 14:25 14:25 WBC RBC Hgb 8.2 L Hct 26.2 L MCH RDW Lymph % (Auto) [place] % (Auto) Eos % (Auto) Lymph # [place] # Seg Neutrophils % Seg Neuts % (Manual) Lymphocytes % (Manual) Seg Neutrophils # Lymphocytes # (Manual) APTT 42.4 H D-Dimer Heparin Anti-Xa Level POC ABG pH POC ABG pCO2 POC ABG pO2 Sodium Potassium Chloride Carbon Dioxide BUN Creatinine Glucose POC Glucose 167 H Hemoglobin A1c Lactic Acid Calcium Phosphorus Magnesium Alkaline Phosphatase Total Creatine Kinase CK-MB (CK-2) CK-MB (CK-2) Rel Index Troponin T NT-Pro-B Natriuret Pep Serum Total Protein Total Protein Albumin Rkcwv-7-Blqhhldoo PEP Interpretation LDL Cholesterol Direct HDL Cholesterol PTH Intact Urine Creatinine Urine Total Protein Valproic Acid Crossmatch 10/09/18 10/09/18 10/09/18 17:28 20:56 21:23 WBC RBC Hgb Hct MCH RDW Lymph % (Auto) [place] % (Auto) Eos % (Auto) Lymph # [place] # Seg Neutrophils % Seg Neuts % (Manual) Lymphocytes % (Manual) Seg Neutrophils # Lymphocytes # (Manual) APTT D-Dimer Heparin Anti-Xa Level 0.28 L POC ABG pH POC ABG pCO2 POC ABG pO2 Sodium Potassium Chloride Carbon Dioxide BUN Creatinine Glucose POC Glucose Hemoglobin A1c Lactic Acid Calcium Phosphorus Magnesium Alkaline Phosphatase Total Creatine Kinase CK-MB (CK-2) CK-MB (CK-2) Rel Index Troponin T 0.136 H* 0.139 H* NT-Pro-B Natriuret Pep Serum Total Protein Total Protein Albumin Jxymz-7-Bsyjcsndm PEP Interpretation LDL Cholesterol Direct HDL Cholesterol PTH Intact Urine Creatinine Urine Total Protein Valproic Acid Crossmatch 10/10/18 10/10/18 10/10/18 00:10 05:00 05:00 WBC 3.3 L RBC 2.99 L Hgb 8.2 L Hct 25.9 L MCH 27 L RDW 19.2 H Lymph % (Auto) [place] % (Auto) 13.2 H Eos % (Auto) 5.8 H Lymph # 0.5 L [place] # Seg Neutrophils % Seg Neuts % (Manual) Lymphocytes % (Manual) Seg Neutrophils # Lymphocytes # (Manual) APTT D-Dimer Heparin Anti-Xa Level POC ABG pH POC ABG pCO2 POC ABG pO2 Sodium Potassium 5.6 H Chloride 110.8 H Carbon Dioxide BUN 50 H Creatinine 2.2 H Glucose 52 L POC Glucose 60 L Hemoglobin A1c Lactic Acid Calcium 8.1 L Phosphorus Magnesium Alkaline Phosphatase Total Creatine Kinase CK-MB (CK-2) CK-MB (CK-2) Rel Index Troponin T NT-Pro-B Natriuret Pep Serum Total Protein Total Protein Albumin Gbcwv-6-Tsklpqqhb PEP Interpretation LDL Cholesterol Direct HDL Cholesterol PTH Intact Urine Creatinine Urine Total Protein Valproic Acid Crossmatch 01/07/1910/10/18 10/10/18 05:00 06:11 11:30 WBC RBC Hgb Hct MCH RDW Lymph % (Auto) [place] % (Auto) Eos % (Auto) Lymph # [place] # Seg Neutrophils % Seg Neuts % (Manual) Lymphocytes % (Manual) Seg Neutrophils # Lymphocytes # (Manual) APTT D-Dimer Heparin Anti-Xa Level POC ABG pH POC ABG pCO2 POC ABG pO2 Sodium Potassium Chloride Carbon Dioxide BUN Creatinine Glucose POC Glucose 57 L 48 L Hemoglobin A1c 8.2 H Lactic Acid Calcium Phosphorus Magnesium Alkaline Phosphatase Total Creatine Kinase CK-MB (CK-2) CK-MB (CK-2) Rel Index Troponin T NT-Pro-B Natriuret Pep Serum Total Protein Total Protein Albumin Grcfm-4-Wlazwzvar PEP Interpretation LDL Cholesterol Direct HDL Cholesterol PTH Intact Urine Creatinine Urine Total Protein Valproic Acid Crossmatch 10/10/18 10/10/18 10/10/18 12:22 13:36 13:36 WBC RBC Hgb Hct MCH RDW Lymph % (Auto) [place] % (Auto) Eos % (Auto) Lymph # [place] # Seg Neutrophils % Seg Neuts % (Manual) Lymphocytes % (Manual) Seg Neutrophils # Lymphocytes # (Manual) APTT D-Dimer 927.57 H Heparin Anti-Xa Level POC ABG pH 7.286 L POC ABG pCO2 47.3 H POC ABG pO2 65 L Sodium Potassium Chloride Carbon Dioxide BUN Creatinine Glucose POC Glucose Hemoglobin A1c Lactic Acid 0.60 L Calcium Phosphorus Magnesium Alkaline Phosphatase Total Creatine Kinase CK-MB (CK-2) CK-MB (CK-2) Rel Index Troponin T NT-Pro-B Natriuret Pep Serum Total Protein Total Protein Albumin Okvzm-8-Iweohajed PEP Interpretation LDL Cholesterol Direct HDL Cholesterol PTH Intact Urine Creatinine Urine Total Protein Valproic Acid Crossmatch 10/10/18 10/10/18 10/10/18 16:42 21:12 22:30 WBC RBC Hgb Hct MCH RDW Lymph % (Auto) [place] % (Auto) Eos % (Auto) Lymph # [place] # Seg Neutrophils % Seg Neuts % (Manual) Lymphocytes % (Manual) Seg Neutrophils # Lymphocytes # (Manual) APTT D-Dimer Heparin Anti-Xa Level POC ABG pH POC ABG pCO2 POC ABG pO2 Sodium Potassium Chloride Carbon Dioxide BUN Creatinine Glucose POC Glucose 122 H 119 H Hemoglobin A1c Lactic Acid Calcium Phosphorus Magnesium Alkaline Phosphatase Total Creatine Kinase CK-MB (CK-2) CK-MB (CK-2) Rel Index Troponin T NT-Pro-B Natriuret Pep Serum Total Protein Total Protein Albumin Cbiee-1-Kshmexpbf PEP Interpretation LDL Cholesterol Direct HDL Cholesterol PTH Intact Urine Creatinine 118.6 H Urine Total Protein 152 H Valproic Acid Crossmatch 10/11/18 10/11/18 10/11/18 04:31 04:31 13:15 WBC RBC Hgb 8.7 L Hct 27.9 L MCH RDW Lymph % (Auto) [place] % (Auto) Eos % (Auto) Lymph # [place] # Seg Neutrophils % Seg Neuts % (Manual) Lymphocytes % (Manual) Seg Neutrophils # Lymphocytes # (Manual) APTT D-Dimer Heparin Anti-Xa Level POC ABG pH POC ABG pCO2 POC ABG pO2 Sodium Potassium 6.6 H* 6.4 H* Chloride Carbon Dioxide BUN 55 H Creatinine 2.9 H Glucose POC Glucose Hemoglobin A1c Lactic Acid Calcium 7.6 L Phosphorus Magnesium Alkaline Phosphatase Total Creatine Kinase CK-MB (CK-2) CK-MB (CK-2) Rel Index Troponin T NT-Pro-B Natriuret Pep Serum Total Protein Total Protein Albumin Eqyxt-2-Gnoygorqh PEP Interpretation LDL Cholesterol Direct HDL Cholesterol PTH Intact Urine Creatinine Urine Total Protein Valproic Acid Crossmatch 10/11/18 10/11/18 10/12/18 20:45 22:37 04:25 WBC RBC Hgb Hct MCH RDW Lymph % (Auto) [place] % (Auto) Eos % (Auto) Lymph # [place] # Seg Neutrophils % Seg Neuts % (Manual) Lymphocytes % (Manual) Seg Neutrophils # Lymphocytes # (Manual) APTT D-Dimer Heparin Anti-Xa Level POC ABG pH POC ABG pCO2 POC ABG pO2 Sodium Potassium Chloride Carbon Dioxide BUN 37 H 38 H Creatinine 2.4 H 2.3 H Glucose POC Glucose 117 H Hemoglobin A1c Lactic Acid Calcium 7.5 L 7.6 L Phosphorus Magnesium Alkaline Phosphatase 261 H Total Creatine Kinase CK-MB (CK-2) CK-MB (CK-2) Rel Index Troponin T NT-Pro-B Natriuret Pep Serum Total Protein Total Protein 6.2 L Albumin 3.0 L Zcncj-0-Gowudhxtg PEP Interpretation LDL Cholesterol Direct HDL Cholesterol PTH Intact Urine Creatinine Urine Total Protein Valproic Acid Crossmatch 10/12/18 10/12/18 10/13/18 10:02 21:33 03:28 WBC RBC Hgb 7.6 L 7.7 L Hct 24.1 L 23.8 L MCH RDW Lymph % (Auto) [place] % (Auto) Eos % (Auto) Lymph # [place] # Seg Neutrophils % Seg Neuts % (Manual) Lymphocytes % (Manual) Seg Neutrophils # Lymphocytes # (Manual) APTT D-Dimer Heparin Anti-Xa Level POC ABG pH POC ABG pCO2 POC ABG pO2 Sodium Potassium Chloride Carbon Dioxide BUN Creatinine Glucose POC Glucose 109 H Hemoglobin A1c Lactic Acid Calcium Phosphorus Magnesium Alkaline Phosphatase Total Creatine Kinase CK-MB (CK-2) CK-MB (CK-2) Rel Index Troponin T NT-Pro-B Natriuret Pep Serum Total Protein Total Protein Albumin Aligu-2-Fyraxkvsx PEP Interpretation LDL Cholesterol Direct HDL Cholesterol PTH Intact Urine Creatinine Urine Total Protein Valproic Acid Crossmatch 10/13/18 10/13/18 10/13/18 03:28 08:27 15:04 WBC RBC Hgb Hct MCH RDW Lymph % (Auto) [place] % (Auto) Eos % (Auto) Lymph # [place] # Seg Neutrophils % Seg Neuts % (Manual) Lymphocytes % (Manual) Seg Neutrophils # Lymphocytes # (Manual) APTT D-Dimer Heparin Anti-Xa Level POC ABG pH POC ABG pCO2 POC ABG pO2 Sodium Potassium Chloride Carbon Dioxide BUN 38 H Creatinine 1.9 H Glucose POC Glucose 136 H 160 H Hemoglobin A1c Lactic Acid Calcium 8.3 L Phosphorus Magnesium Alkaline Phosphatase Total Creatine Kinase CK-MB (CK-2) CK-MB (CK-2) Rel Index Troponin T NT-Pro-B Natriuret Pep Serum Total Protein Total Protein Albumin Kmbki-8-Ezlvmynkq PEP Interpretation LDL Cholesterol Direct HDL Cholesterol PTH Intact Urine Creatinine Urine Total Protein Valproic Acid Crossmatch 10/13/18 10/13/18 10/14/18 16:53 23:06 06:06 WBC RBC Hgb Hct MCH RDW Lymph % (Auto) [place] % (Auto) Eos % (Auto) Lymph # [place] # Seg Neutrophils % Seg Neuts % (Manual) Lymphocytes % (Manual) Seg Neutrophils # Lymphocytes # (Manual) APTT D-Dimer Heparin Anti-Xa Level POC ABG pH POC ABG pCO2 POC ABG pO2 Sodium Potassium Chloride 107.7 H Carbon Dioxide BUN 39 H Creatinine 1.8 H Glucose 116 H POC Glucose 161 H 213 H Hemoglobin A1c Lactic Acid Calcium Phosphorus Magnesium 2.40 H Alkaline Phosphatase Total Creatine Kinase CK-MB (CK-2) CK-MB (CK-2) Rel Index Troponin T NT-Pro-B Natriuret Pep Serum Total Protein Total Protein Albumin Svwox-1-Ujfgsafvc PEP Interpretation LDL Cholesterol Direct HDL Cholesterol PTH Intact Urine Creatinine Urine Total Protein Valproic Acid Crossmatch 10/14/18 10/14/18 10/14/18 06:34 11:01 13:50 WBC RBC Hgb 7.8 L Hct 24.8 L MCH RDW Lymph % (Auto) [place] % (Auto) Eos % (Auto) Lymph # [place] # Seg Neutrophils % Seg Neuts % (Manual) Lymphocytes % (Manual) Seg Neutrophils # Lymphocytes # (Manual) APTT D-Dimer Heparin Anti-Xa Level POC ABG pH POC ABG pCO2 POC ABG pO2 Sodium Potassium Chloride Carbon Dioxide BUN Creatinine Glucose POC Glucose 118 H 67 L Hemoglobin A1c Lactic Acid Calcium Phosphorus Magnesium Alkaline Phosphatase Total Creatine Kinase CK-MB (CK-2) CK-MB (CK-2) Rel Index Troponin T NT-Pro-B Natriuret Pep Serum Total Protein Total Protein Albumin Plxux-1-Wyertygbm PEP Interpretation LDL Cholesterol Direct HDL Cholesterol PTH Intact Urine Creatinine Urine Total Protein Valproic Acid Crossmatch 10/14/18 10/15/18 10/15/18 21:37 05:39 05:39 WBC RBC Hgb 7.6 L Hct 23.5 L MCH RDW Lymph % (Auto) [place] % (Auto) Eos % (Auto) Lymph # [place] # Seg Neutrophils % Seg Neuts % (Manual) Lymphocytes % (Manual) Seg Neutrophils # Lymphocytes # (Manual) APTT D-Dimer Heparin Anti-Xa Level POC ABG pH POC ABG pCO2 POC ABG pO2 Sodium Potassium Chloride Carbon Dioxide BUN Creatinine Glucose POC Glucose 125 H Hemoglobin A1c Lactic Acid Calcium Phosphorus Magnesium Alkaline Phosphatase Total Creatine Kinase CK-MB (CK-2) CK-MB (CK-2) Rel Index Troponin T NT-Pro-B Natriuret Pep Serum Total Protein 5.6 L Total Protein Albumin 2.5 L Hymjh-8-Xcdhwlglp 0.4 H PEP Interpretation see below H LDL Cholesterol Direct HDL Cholesterol PTH Intact Urine Creatinine Urine Total Protein Valproic Acid Crossmatch 10/15/18 10/15/18 10/15/18 05:39 06:27 07:48 WBC RBC Hgb Hct MCH RDW Lymph % (Auto) [place] % (Auto) Eos % (Auto) Lymph # [place] # Seg Neutrophils % Seg Neuts % (Manual) Lymphocytes % (Manual) Seg Neutrophils # Lymphocytes # (Manual) APTT D-Dimer Heparin Anti-Xa Level POC ABG pH POC ABG pCO2 POC ABG pO2 Sodium Potassium Chloride Carbon Dioxide BUN 45 H Creatinine 2.1 H Glucose 59 L POC Glucose 46 L 65 L Hemoglobin A1c Lactic Acid Calcium 8.3 L Phosphorus Magnesium Alkaline Phosphatase Total Creatine Kinase CK-MB (CK-2) CK-MB (CK-2) Rel Index Troponin T NT-Pro-B Natriuret Pep Serum Total Protein Total Protein Albumin Ihygx-3-Qcvnxdxis PEP Interpretation LDL Cholesterol Direct HDL Cholesterol PTH Intact Urine Creatinine Urine Total Protein Valproic Acid Crossmatch 10/15/18 10/15/18 10/15/18 13:21 13:24 21:23 WBC RBC Hgb Hct MCH RDW Lymph % (Auto) [place] % (Auto) Eos % (Auto) Lymph # [place] # Seg Neutrophils % Seg Neuts % (Manual) Lymphocytes % (Manual) Seg Neutrophils # Lymphocytes # (Manual) APTT D-Dimer Heparin Anti-Xa Level POC ABG pH POC ABG pCO2 48.4 H POC ABG pO2 77 L Sodium Potassium Chloride Carbon Dioxide BUN Creatinine Glucose POC Glucose 106 H 160 H Hemoglobin A1c Lactic Acid Calcium Phosphorus Magnesium Alkaline Phosphatase Total Creatine Kinase CK-MB (CK-2) CK-MB (CK-2) Rel Index Troponin T NT-Pro-B Natriuret Pep Serum Total Protein Total Protein Albumin Fawvv-7-Dnhkzeltu PEP Interpretation LDL Cholesterol Direct HDL Cholesterol PTH Intact Urine Creatinine Urine Total Protein Valproic Acid Crossmatch 10/16/18 10/16/18 10/16/18 06:25 06:49 21:42 WBC RBC Hgb Hct MCH RDW Lymph % (Auto) [place] % (Auto) Eos % (Auto) Lymph # [place] # Seg Neutrophils % Seg Neuts % (Manual) Lymphocytes % (Manual) Seg Neutrophils # Lymphocytes # (Manual) APTT D-Dimer Heparin Anti-Xa Level POC ABG pH POC ABG pCO2 POC ABG pO2 Sodium Potassium Chloride 107.7 H Carbon Dioxide BUN 53 H Creatinine 2.2 H Glucose 61 L POC Glucose 51 L 153 H Hemoglobin A1c Lactic Acid Calcium Phosphorus Magnesium Alkaline Phosphatase Total Creatine Kinase CK-MB (CK-2) CK-MB (CK-2) Rel Index Troponin T NT-Pro-B Natriuret Pep Serum Total Protein Total Protein Albumin Aevuc-3-Hosjorbci PEP Interpretation LDL Cholesterol Direct HDL Cholesterol PTH Intact Urine Creatinine Urine Total Protein Valproic Acid Crossmatch 10/17/18 10/17/18 10/17/18 05:22 05:22 05:22 WBC RBC Hgb 7.6 L Hct 23.1 L MCH RDW Lymph % (Auto) [place] % (Auto) Eos % (Auto) Lymph # [place] # Seg Neutrophils % Seg Neuts % (Manual) Lymphocytes % (Manual) Seg Neutrophils # Lymphocytes # (Manual) APTT D-Dimer Heparin Anti-Xa Level POC ABG pH POC ABG pCO2 POC ABG pO2 Sodium Potassium Chloride Carbon Dioxide BUN 59 H Creatinine 2.2 H Glucose 111 H POC Glucose Hemoglobin A1c Lactic Acid Calcium Phosphorus Magnesium Alkaline Phosphatase Total Creatine Kinase CK-MB (CK-2) CK-MB (CK-2) Rel Index Troponin T NT-Pro-B Natriuret Pep Serum Total Protein Total Protein Albumin Bfxoi-0-Vpurfxwhs PEP Interpretation LDL Cholesterol Direct HDL Cholesterol PTH Intact 152.8 H Urine Creatinine Urine Total Protein Valproic Acid Crossmatch 10/17/18 10/17/18 10/18/18 12:17 21:32 06:36 WBC RBC Hgb Hct MCH RDW Lymph % (Auto) [place] % (Auto) Eos % (Auto) Lymph # [place] # Seg Neutrophils % Seg Neuts % (Manual) Lymphocytes % (Manual) Seg Neutrophils # Lymphocytes # (Manual) APTT D-Dimer Heparin Anti-Xa Level POC ABG pH POC ABG pCO2 POC ABG pO2 Sodium Potassium Chloride Carbon Dioxide BUN Creatinine Glucose POC Glucose 130 H 402 H 217 H Hemoglobin A1c Lactic Acid Calcium Phosphorus Magnesium Alkaline Phosphatase Total Creatine Kinase CK-MB (CK-2) CK-MB (CK-2) Rel Index Troponin T NT-Pro-B Natriuret Pep Serum Total Protein Total Protein Albumin Fqglr-8-Muowqnsvq PEP Interpretation LDL Cholesterol Direct HDL Cholesterol PTH Intact Urine Creatinine Urine Total Protein Valproic Acid Crossmatch 10/18/18 10/18/18 10/18/18 08:19 12:24 18:30 WBC RBC Hgb Hct MCH RDW Lymph % (Auto) [place] % (Auto) Eos % (Auto) Lymph # [place] # Seg Neutrophils % Seg Neuts % (Manual) Lymphocytes % (Manual) Seg Neutrophils # Lymphocytes # (Manual) APTT D-Dimer Heparin Anti-Xa Level POC ABG pH POC ABG pCO2 POC ABG pO2 Sodium Potassium 5.6 H Chloride 107.3 H Carbon Dioxide BUN 62 H Creatinine 2.3 H Glucose 201 H POC Glucose 159 H 136 H Hemoglobin A1c Lactic Acid Calcium Phosphorus Magnesium Alkaline Phosphatase Total Creatine Kinase CK-MB (CK-2) CK-MB (CK-2) Rel Index Troponin T NT-Pro-B Natriuret Pep Serum Total Protein Total Protein Albumin Yeuxz-6-Zorppodch PEP Interpretation LDL Cholesterol Direct HDL Cholesterol PTH Intact Urine Creatinine Urine Total Protein Valproic Acid Crossmatch 10/19/18 10/19/18 10/19/18 04:53 04:53 11:33 WBC RBC 2.74 L Hgb 7.5 L Hct 23.0 L MCH 27 L RDW 17.9 H Lymph % (Auto) 11.3 L [place] % (Auto) 14.5 H Eos % (Auto) Lymph # 1.0 L [place] # 1.2 H Seg Neutrophils % 71.4 H Seg Neuts % (Manual) Lymphocytes % (Manual) Seg Neutrophils # Lymphocytes # (Manual) APTT D-Dimer Heparin Anti-Xa Level POC ABG pH POC ABG pCO2 POC ABG pO2 Sodium Potassium Chloride Carbon Dioxide 33 H BUN 33 H Creatinine Glucose 52 L POC Glucose 148 H Hemoglobin A1c Lactic Acid Calcium Phosphorus Magnesium Alkaline Phosphatase Total Creatine Kinase CK-MB (CK-2) CK-MB (CK-2) Rel Index Troponin T NT-Pro-B Natriuret Pep Serum Total Protein Total Protein Albumin Oqckt-8-Dnvjfnfmh PEP Interpretation LDL Cholesterol Direct HDL Cholesterol PTH Intact Urine Creatinine Urine Total Protein Valproic Acid Crossmatch 10/19/18 10/20/18 10/20/18 21:10 05:30 18:14 WBC RBC Hgb Hct MCH RDW Lymph % (Auto) [place] % (Auto) Eos % (Auto) Lymph # [place] # Seg Neutrophils % Seg Neuts % (Manual) Lymphocytes % (Manual) Seg Neutrophils # Lymphocytes # (Manual) APTT D-Dimer Heparin Anti-Xa Level POC ABG pH POC ABG pCO2 POC ABG pO2 Sodium Potassium 5.1 H Chloride Carbon Dioxide 31 H BUN 40 H Creatinine 1.6 H Glucose POC Glucose 132 H 114 H Hemoglobin A1c Lactic Acid Calcium Phosphorus Magnesium Alkaline Phosphatase Total Creatine Kinase CK-MB (CK-2) CK-MB (CK-2) Rel Index Troponin T NT-Pro-B Natriuret Pep Serum Total Protein Total Protein Albumin Sbwce-9-Rzkhlrlvf PEP Interpretation LDL Cholesterol Direct HDL Cholesterol PTH Intact Urine Creatinine Urine Total Protein Valproic Acid Crossmatch 10/20/18 10/21/18 10/21/18 20:57 06:26 06:26 WBC RBC 2.76 L Hgb 7.7 L Hct 23.1 L MCH RDW 18.2 H Lymph % (Auto) [place] % (Auto) Eos % (Auto) Lymph # [place] # Seg Neutrophils % Seg Neuts % (Manual) 79.0 H Lymphocytes % (Manual) 9.0 L Seg Neutrophils # Lymphocytes # (Manual) 0.7 L APTT D-Dimer Heparin Anti-Xa Level POC ABG pH POC ABG pCO2 POC ABG pO2 Sodium 146 H Potassium Chloride Carbon Dioxide 31 H BUN 41 H Creatinine 1.6 H Glucose POC Glucose 196 H Hemoglobin A1c Lactic Acid Calcium Phosphorus 4.70 H Magnesium Alkaline Phosphatase Total Creatine Kinase CK-MB (CK-2) CK-MB (CK-2) Rel Index Troponin T NT-Pro-B Natriuret Pep Serum Total Protein Total Protein Albumin Wssqh-9-Lvcjtahsj PEP Interpretation LDL Cholesterol Direct HDL Cholesterol PTH Intact Urine Creatinine Urine Total Protein Valproic Acid Crossmatch 10/21/18 10/21/18 10/21/18 06:26 08:52 17:00 WBC RBC Hgb Hct MCH RDW Lymph % (Auto) [place] % (Auto) Eos % (Auto) Lymph # [place] # Seg Neutrophils % Seg Neuts % (Manual) Lymphocytes % (Manual) Seg Neutrophils # Lymphocytes # (Manual) APTT D-Dimer Heparin Anti-Xa Level POC ABG pH POC ABG pCO2 POC ABG pO2 Sodium Potassium Chloride Carbon Dioxide BUN Creatinine Glucose POC Glucose 172 H Hemoglobin A1c Lactic Acid Calcium Phosphorus Magnesium Alkaline Phosphatase 258 H Total Creatine Kinase CK-MB (CK-2) CK-MB (CK-2) Rel Index Troponin T NT-Pro-B Natriuret Pep Serum Total Protein Total Protein Albumin Gskvq-9-Gilgfdwsk PEP Interpretation LDL Cholesterol Direct HDL Cholesterol PTH Intact Urine Creatinine Urine Total Protein Valproic Acid 46.4 L Crossmatch 10/21/18 10/22/18 10/22/18 23:37 05:25 05:25 WBC RBC 2.17 L Hgb 6.1 L Hct 20.7 L MCH RDW 18.2 H Lymph % (Auto) [place] % (Auto) 14.8 H Eos % (Auto) Lymph # [place] # 1.2 H Seg Neutrophils % Seg Neuts % (Manual) Lymphocytes % (Manual) Seg Neutrophils # Lymphocytes # (Manual) APTT D-Dimer Heparin Anti-Xa Level POC ABG pH POC ABG pCO2 POC ABG pO2 Sodium Potassium Chloride Carbon Dioxide 31 H BUN 45 H Creatinine 1.7 H Glucose 143 H POC Glucose 186 H Hemoglobin A1c Lactic Acid Calcium 8.3 L Phosphorus Magnesium Alkaline Phosphatase Total Creatine Kinase CK-MB (CK-2) CK-MB (CK-2) Rel Index Troponin T NT-Pro-B Natriuret Pep Serum Total Protein Total Protein Albumin Gghaa-2-Rjfqusbcp PEP Interpretation LDL Cholesterol Direct HDL Cholesterol PTH Intact Urine Creatinine Urine Total Protein Valproic Acid Crossmatch 10/22/18 10/22/18 10/22/18 10:31 12:27 17:13 WBC RBC Hgb Hct MCH RDW Lymph % (Auto) [place] % (Auto) Eos % (Auto) Lymph # [place] # Seg Neutrophils % Seg Neuts % (Manual) Lymphocytes % (Manual) Seg Neutrophils # Lymphocytes # (Manual) APTT D-Dimer Heparin Anti-Xa Level POC ABG pH POC ABG pCO2 POC ABG pO2 Sodium Potassium Chloride Carbon Dioxide BUN Creatinine Glucose POC Glucose 198 H 137 H Hemoglobin A1c Lactic Acid Calcium Phosphorus Magnesium Alkaline Phosphatase Total Creatine Kinase CK-MB (CK-2) CK-MB (CK-2) Rel Index Troponin T NT-Pro-B Natriuret Pep Serum Total Protein Total Protein Albumin Idrlx-8-Nkfyndxic PEP Interpretation LDL Cholesterol Direct HDL Cholesterol PTH Intact Urine Creatinine Urine Total Protein Valproic Acid Crossmatch See Detail 10/22/18 10/23/18 10/23/18 20:35 06:00 09:07 WBC 11.1 H RBC 2.99 L Hgb 8.4 L Hct 25.7 L MCH RDW 17.9 H Lymph % (Auto) [place] % (Auto) Eos % (Auto) Lymph # [place] # Seg Neutrophils % Seg Neuts % (Manual) Lymphocytes % (Manual) Seg Neutrophils # Lymphocytes # (Manual) APTT D-Dimer Heparin Anti-Xa Level POC ABG pH POC ABG pCO2 POC ABG pO2 Sodium Potassium Chloride Carbon Dioxide BUN Creatinine Glucose POC Glucose 196 H 246 H Hemoglobin A1c Lactic Acid Calcium Phosphorus Magnesium Alkaline Phosphatase Total Creatine Kinase CK-MB (CK-2) CK-MB (CK-2) Rel Index Troponin T NT-Pro-B Natriuret Pep Serum Total Protein Total Protein Albumin Kkuxf-2-Yuxiuzqpu PEP Interpretation LDL Cholesterol Direct HDL Cholesterol PTH Intact Urine Creatinine Urine Total Protein Valproic Acid Crossmatch 10/23/18 10/23/18 10/23/18 09:07 11:37 17:16 WBC RBC Hgb Hct MCH RDW Lymph % (Auto) [place] % (Auto) Eos % (Auto) Lymph # [place] # Seg Neutrophils % Seg Neuts % (Manual) Lymphocytes % (Manual) Seg Neutrophils # Lymphocytes # (Manual) APTT D-Dimer Heparin Anti-Xa Level POC ABG pH POC ABG pCO2 POC ABG pO2 Sodium Potassium 5.2 H Chloride Carbon Dioxide BUN 48 H Creatinine 2.4 H Glucose 247 H POC Glucose 222 H 196 H Hemoglobin A1c Lactic Acid Calcium Phosphorus Magnesium Alkaline Phosphatase Total Creatine Kinase CK-MB (CK-2) CK-MB (CK-2) Rel Index Troponin T NT-Pro-B Natriuret Pep Serum Total Protein Total Protein Albumin Rdbtq-3-Heiakstah PEP Interpretation LDL Cholesterol Direct HDL Cholesterol PTH Intact Urine Creatinine Urine Total Protein Valproic Acid Crossmatch 10/23/18 10/24/18 10/24/18 21:39 04:13 04:13 WBC RBC 2.69 L Hgb 7.7 L Hct 23.4 L MCH RDW 18.3 H Lymph % (Auto) [place] % (Auto) Eos % (Auto) Lymph # [place] # Seg Neutrophils % Seg Neuts % (Manual) 77.0 H Lymphocytes % (Manual) 12.0 L Seg Neutrophils # Lymphocytes # (Manual) APTT D-Dimer Heparin Anti-Xa Level POC ABG pH POC ABG pCO2 POC ABG pO2 Sodium Potassium 5.1 H Chloride Carbon Dioxide BUN 53 H Creatinine 2.0 H Glucose 224 H POC Glucose 234 H Hemoglobin A1c Lactic Acid Calcium 8.3 L Phosphorus Magnesium Alkaline Phosphatase Total Creatine Kinase CK-MB (CK-2) CK-MB (CK-2) Rel Index Troponin T NT-Pro-B Natriuret Pep Serum Total Protein Total Protein Albumin Pnuzj-9-Osltzszpm PEP Interpretation LDL Cholesterol Direct HDL Cholesterol PTH Intact Urine Creatinine Urine Total Protein Valproic Acid Crossmatch 10/24/18 10/24/18 10/24/18 07:51 11:41 17:38 WBC RBC Hgb Hct MCH RDW Lymph % (Auto) [place] % (Auto) Eos % (Auto) Lymph # [place] # Seg Neutrophils % Seg Neuts % (Manual) Lymphocytes % (Manual) Seg Neutrophils # Lymphocytes # (Manual) APTT D-Dimer Heparin Anti-Xa Level POC ABG pH POC ABG pCO2 POC ABG pO2 Sodium Potassium Chloride Carbon Dioxide BUN Creatinine Glucose POC Glucose 295 H 287 H 163 H Hemoglobin A1c Lactic Acid Calcium Phosphorus Magnesium Alkaline Phosphatase Total Creatine Kinase CK-MB (CK-2) CK-MB (CK-2) Rel Index Troponin T NT-Pro-B Natriuret Pep Serum Total Protein Total Protein Albumin Umovr-5-Oppolrvxr PEP Interpretation LDL Cholesterol Direct HDL Cholesterol PTH Intact Urine Creatinine Urine Total Protein Valproic Acid Crossmatch 10/24/18 10/25/18 10/25/18 20:50 05:41 05:41 WBC 12.9 H RBC 2.83 L Hgb 7.9 L Hct 24.7 L MCH RDW 18.1 H Lymph % (Auto) [place] % (Auto) Eos % (Auto) Lymph # [place] # Seg Neutrophils % Seg Neuts % (Manual) Lymphocytes % (Manual) Seg Neutrophils # Lymphocytes # (Manual) APTT D-Dimer Heparin Anti-Xa Level POC ABG pH POC ABG pCO2 POC ABG pO2 Sodium Potassium 5.7 H Chloride Carbon Dioxide BUN 62 H Creatinine 2.2 H Glucose 135 H POC Glucose 117 H Hemoglobin A1c Lactic Acid Calcium Phosphorus Magnesium Alkaline Phosphatase Total Creatine Kinase CK-MB (CK-2) CK-MB (CK-2) Rel Index Troponin T NT-Pro-B Natriuret Pep Serum Total Protein Total Protein Albumin Iacqn-6-Ugonkzjnu PEP Interpretation LDL Cholesterol Direct HDL Cholesterol PTH Intact Urine Creatinine Urine Total Protein Valproic Acid Crossmatch 10/25/18 10/25/18 10/25/18 07:58 11:18 16:46 WBC RBC Hgb Hct MCH RDW Lymph % (Auto) [place] % (Auto) Eos % (Auto) Lymph # [place] # Seg Neutrophils % Seg Neuts % (Manual) Lymphocytes % (Manual) Seg Neutrophils # Lymphocytes # (Manual) APTT D-Dimer Heparin Anti-Xa Level POC ABG pH POC ABG pCO2 POC ABG pO2 Sodium Potassium Chloride Carbon Dioxide BUN Creatinine Glucose POC Glucose 203 H 223 H 199 H Hemoglobin A1c Lactic Acid Calcium Phosphorus Magnesium Alkaline Phosphatase Total Creatine Kinase CK-MB (CK-2) CK-MB (CK-2) Rel Index Troponin T NT-Pro-B Natriuret Pep Serum Total Protein Total Protein Albumin Hthcr-1-Fhtsttozz PEP Interpretation LDL Cholesterol Direct HDL Cholesterol PTH Intact Urine Creatinine Urine Total Protein Valproic Acid Crossmatch 10/25/18 10/25/18 10/26/18 19:44 22:13 05:31 WBC RBC 2.81 L Hgb 8.1 L Hct 24.7 L MCH RDW 18.3 H Lymph % (Auto) 11.3 L [place] % (Auto) 15.8 H Eos % (Auto) Lymph # [place] # 1.7 H Seg Neutrophils % Seg Neuts % (Manual) Lymphocytes % (Manual) Seg Neutrophils # Lymphocytes # (Manual) APTT D-Dimer Heparin Anti-Xa Level POC ABG pH POC ABG pCO2 POC ABG pO2 Sodium Potassium 5.3 H Chloride Carbon Dioxide BUN Creatinine Glucose POC Glucose 310 H Hemoglobin A1c Lactic Acid Calcium Phosphorus Magnesium Alkaline Phosphatase Total Creatine Kinase CK-MB (CK-2) CK-MB (CK-2) Rel Index Troponin T NT-Pro-B Natriuret Pep Serum Total Protein Total Protein Albumin Xowmq-6-Nprknjgzh PEP Interpretation LDL Cholesterol Direct HDL Cholesterol PTH Intact Urine Creatinine Urine Total Protein Valproic Acid Crossmatch 10/26/18 10/26/18 10/26/18 05:31 07:58 12:58 WBC RBC Hgb Hct MCH RDW Lymph % (Auto) [place] % (Auto) Eos % (Auto) Lymph # [place] # Seg Neutrophils % Seg Neuts % (Manual) Lymphocytes % (Manual) Seg Neutrophils # Lymphocytes # (Manual) APTT D-Dimer Heparin Anti-Xa Level POC ABG pH POC ABG pCO2 POC ABG pO2 Sodium Potassium 5.3 H Chloride Carbon Dioxide BUN 68 H Creatinine 2.2 H Glucose 187 H POC Glucose 145 H 263 H Hemoglobin A1c Lactic Acid Calcium Phosphorus Magnesium Alkaline Phosphatase Total Creatine Kinase CK-MB (CK-2) CK-MB (CK-2) Rel Index Troponin T NT-Pro-B Natriuret Pep Serum Total Protein Total Protein Albumin Ekcct-5-Kmqqmpslc PEP Interpretation LDL Cholesterol Direct HDL Cholesterol PTH Intact Urine Creatinine Urine Total Protein Valproic Acid Crossmatch 10/26/18 10/26/18 10/27/18 16:24 21:46 05:14 WBC 12.7 H RBC 2.94 L Hgb 8.2 L Hct 25.5 L MCH RDW 18.3 H Lymph % (Auto) 10.0 L [place] % (Auto) 14.3 H Eos % (Auto) Lymph # [place] # 1.8 H Seg Neutrophils % 73.4 H Seg Neuts % (Manual) Lymphocytes % (Manual) Seg Neutrophils # 9.3 H Lymphocytes # (Manual) APTT D-Dimer Heparin Anti-Xa Level POC ABG pH POC ABG pCO2 POC ABG pO2 Sodium Potassium Chloride Carbon Dioxide BUN Creatinine Glucose POC Glucose 188 H 273 H Hemoglobin A1c Lactic Acid Calcium Phosphorus Magnesium Alkaline Phosphatase Total Creatine Kinase CK-MB (CK-2) CK-MB (CK-2) Rel Index Troponin T NT-Pro-B Natriuret Pep Serum Total Protein Total Protein Albumin Ibjir-7-Nxlznvhnb PEP Interpretation LDL Cholesterol Direct HDL Cholesterol PTH Intact Urine Creatinine Urine Total Protein Valproic Acid Crossmatch 10/27/18 10/27/18 10/27/18 05:14 09:08 11:56 WBC RBC Hgb Hct MCH RDW Lymph % (Auto) [place] % (Auto) Eos % (Auto) Lymph # [place] # Seg Neutrophils % Seg Neuts % (Manual) Lymphocytes % (Manual) Seg Neutrophils # Lymphocytes # (Manual) APTT D-Dimer Heparin Anti-Xa Level POC ABG pH POC ABG pCO2 POC ABG pO2 Sodium 136 L Potassium 5.1 H Chloride 97.7 L Carbon Dioxide BUN 67 H Creatinine 1.7 H Glucose POC Glucose 131 H 169 H Hemoglobin A1c Lactic Acid Calcium Phosphorus Magnesium Alkaline Phosphatase Total Creatine Kinase CK-MB (CK-2) CK-MB (CK-2) Rel Index Troponin T NT-Pro-B Natriuret Pep Serum Total Protein Total Protein Albumin Qqths-5-Udmnusgdp PEP Interpretation LDL Cholesterol Direct HDL Cholesterol PTH Intact Urine Creatinine Urine Total Protein Valproic Acid Crossmatch 10/27/18 10/27/18 10/28/18 16:27 21:53 03:24 WBC RBC 2.82 L Hgb 8.1 L Hct 24.6 L MCH RDW 18.6 H Lymph % (Auto) [place] % (Auto) 13.8 H Eos % (Auto) Lymph # [place] # 1.3 H Seg Neutrophils % Seg Neuts % (Manual) Lymphocytes % (Manual) Seg Neutrophils # Lymphocytes # (Manual) APTT D-Dimer Heparin Anti-Xa Level POC ABG pH POC ABG pCO2 POC ABG pO2 Sodium Potassium Chloride Carbon Dioxide BUN Creatinine Glucose POC Glucose 129 H 118 H Hemoglobin A1c Lactic Acid Calcium Phosphorus Magnesium Alkaline Phosphatase Total Creatine Kinase CK-MB (CK-2) CK-MB (CK-2) Rel Index Troponin T NT-Pro-B Natriuret Pep Serum Total Protein Total Protein Albumin Upkqd-6-Tlpejiykb PEP Interpretation LDL Cholesterol Direct HDL Cholesterol PTH Intact Urine Creatinine Urine Total Protein Valproic Acid Crossmatch 10/28/18 10/28/18 10/28/18 03:24 08:10 11:59 WBC RBC Hgb Hct MCH RDW Lymph % (Auto) [place] % (Auto) Eos % (Auto) Lymph # [place] # Seg Neutrophils % Seg Neuts % (Manual) Lymphocytes % (Manual) Seg Neutrophils # Lymphocytes # (Manual) APTT D-Dimer Heparin Anti-Xa Level POC ABG pH POC ABG pCO2 POC ABG pO2 Sodium Potassium Chloride Carbon Dioxide BUN 62 H Creatinine Glucose 121 H POC Glucose 115 H 124 H Hemoglobin A1c Lactic Acid Calcium Phosphorus Magnesium Alkaline Phosphatase Total Creatine Kinase CK-MB (CK-2) CK-MB (CK-2) Rel Index Troponin T NT-Pro-B Natriuret Pep Serum Total Protein Total Protein Albumin Mzitd-6-Whmcisvka PEP Interpretation LDL Cholesterol Direct HDL Cholesterol PTH Intact Urine Creatinine Urine Total Protein Valproic Acid Crossmatch Allied health notes reviewed: nursing
--- NOTE | 2018-10-28 14:43 | Progress Note ---
Assessment and Plan 1. Acute kidney injury: MAXIMO likely Vasomotor / hemodynamic mediated in the setting of hypotension. Patient was started on hemodialysis on 10/11/2018 due to continued decline in the Renal function and hyperkalemia. He was last dialyzed on 10/18/18. Likely CKD stage 3, creatinine level fluctuating. 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 2. FEN: Volume overload, resume Lasix. S/p multiple sessions of Isolated UF. Continue Metolazone. Hyperkalemia, Kayexalate three times a week. Metabolic alkalosis, improved. 3. CHF exacerbation: Improved. 4. Hypotension: BP is better. 5. Anemia: S/p 2 units of PRBC on 10/22. Monitor. 6. Left 2nd finger fracture: ORIF today. Subjective Date of service: 10/28/18 Principal diagnosis: Severe Sepsis with Shock; Acute encephalopathy; MAXIMO; Diabetes II; CMOP Interval history: Patient was seen and examined at the bedside. Objective - Vital Signs Vital signs: Vital Signs - 12hr 10/28/18 10/28/18 05:47 11:53 Temperature 97.9 F 98.2 F Pulse Rate 69 Respiratory 20 18 Rate Blood Pressure 154/76 143/86 O2 Sat by Pulse 96 99 Oximetry - General Appearance General appearance: well-developed, well-nourished, appears stated age, other (no tin distress) EENT: ATNC, PERRL, mucous membranes moist, hearing intact, vision intact Neck: supple Respiratory: Present: Clear to Ascultation Cardiology: regular, S1S2, no murmurs Gastrointestinal: normoactive bowel sounds, no tenderness, no distended Integumentary: ulcer (right foot) Neurologic: no focal deficit, no asterixis, alert and oriented x3 Musculoskeletal: other (1+ LE edema noted) - Lab 10/28/18 03:24 10/28/18 03:24 Most recent lab results Calcium 8.7 mg/dL (8.4-10.2) 10/28/18 03:24 Phosphorus 4.70 mg/dL (2.5-4.5) H 10/21/18 06:26 Magnesium 2.20 mg/dL (1.7-2.3) 10/21/18 06:26 Urine Creatinine 118.6 mg/dL (0.1-20.0) H 10/10/18 22:30 Urine Sodium 35 mmol/L 10/10/18 22:30 Urine Total Protein 152 mg/dL (5-11.8) H 10/10/18 22:30 Medications & Allergies - Medications Allergies/Adverse Reactions: Allergies No Known Allergies Allergy (Unverified 10/09/18 10:44) Home Medications: Home Medications Medication Instructions Recorded Confirmed Last Taken Type Carvedilol [Coreg] 3.125 mg PO BID 10/09/18 10/09/[address] [DepaKOTE DR] 500 mg PO BID 10/09/18 10/09/18 Unknown History Ferrous Sulfate [Feosol] 325 mg PO QDAY 10/09/18 10/09/18 Unknown History Furosemide [Lasix] 80 mg PO DAILY 10/09/18 10/09/18 Unknown History Gabapentin [Neurontin] 300 mg PO Q8HR 10/09/18 10/09/18 Unknown History ISOSORBIDE MONOnitrate [Imdur ER] 30 mg PO DAILY 10/09/18 10/09/18 Unknown History Insulin Glargine,Hum.rec.anlog 40 units SQ QHS 10/09/18 10/09/18 Unknown History [Lantus] Magnesium Oxide [Mag-Ox] 400 mg PO DAILY 10/09/18 10/09/18 Unknown History Simvastatin (Nf) [Zocor TAB] 20 mg PO QHS 10/09/18 10/09/18 Unknown History Sulfamethoxazole/Trimethoprim 1 each PO BID 10/09/18 10/09/18 Unknown History [Bactrim DS TAB] glipiZIDE [Glipizide] 10 mg PO DAILY 10/09/18 10/09/18 Unknown History hydrALAZINE [Apresoline TAB] 100 mg PO BID 10/09/18 10/09/18 Unknown History risperiDONE [RisperDAL] 1 mg PO QHS 10/09/18 10/09/18 Unknown History Active Medications: Generic Name Dose Route Start Last Admin Trade Name Freq PRN Reason Stop Dose Admin Albumin Human 25 gm 10/11/18 09:35 Alburx 25% (Albumin) IV JUDE PRN Hypotension Aspirin 325 mg 10/10/18 10:00 10/28/18 09:09 Aspirin PO 325 mg QDAY JAMIL Administration Carvedilol 6.25 mg 10/14/18 22:00 10/28/18 09:09 Coreg PO 6.25 mg BID JAMIL Administration Dextrose 50 ml 10/10/18 11:03 10/16/18 07:14 D50w (25gm) Syringe IV 50 ml PRN PRN Administration Hypoglycemia Famotidine 20 mg 10/10/18 12:00 10/28/18 09:09 Pepcid PO 20 mg DAILY JAMIL Administration Ferrous Sulfate 325 mg 10/10/18 10:00 10/28/18 10:59 Feosol PO Not Given QDAY JAMIL Heparin Sodium (Porcine) 5,000 unit 10/11/18 15:00 10/28/18 06:21 Heparin SUB-Q Not Given Q8HR JAMIL Hydralazine HCl 20 mg 10/13/18 18:43 10/24/18 01:11 Apresoline IV 20 mg Q4HR PRN Administration Increased Blood Pressure Insulin Human Isoph/Insulin Regular 8 unit 10/24/18 17:00 10/28/18 08:00 Humulin 70/30 SUB-Q 8 unit BIDDIAB JAMIL Administration Insulin Human Regular 0 units 10/10/18 11:30 10/28/18 11:30 Humulin R SUB-Q Not Given ACHS [facility] Protocol Magnesium Hydroxide 30 ml 10/17/18 14:28 10/19/18 10:58 Milk Of Magnesia PO 30 ml QDAY PRN Administration Constipation Metolazone 5 mg 10/23/18 22:00 10/27/18 18:12 Zaroxolyn PO 5 mg DAILY@1730 [facility] Administration Morphine Sulfate 1 mg 10/27/18 11:23 10/27/18 23:07 Morphine IV 1 mg Q4H PRN Administration Pain , Moderate Oxycodone/Acetaminophen 1 tab 10/19/18 10:18 10/27/18 18:20 Percocet 5/325 PO 1 tab Q8H PRN Administration Pain, Moderate (4-6) Pravastatin Sodium 40 mg 10/09/18 22:00 10/27/18 23:03 Pravachol PO 40 mg QHS JAMIL Administration Risperidone 1 mg 10/09/18 22:00 10/27/18 23:03 Risperdal PO 1 mg QHS JAMIL Administration Sodium Chloride 10 ml 10/09/18 13:00 10/27/18 23:07 Sodium Chloride Flush Syringe 10 Ml IV 10 ml BID JAMIL Administration Sodium Chloride 10 ml 10/09/18 13:00 Sodium Chloride Flush Syringe 10 Ml IV PRN PRN LINE FLUSH Sodium Polystyrene Sulfonate 30 gm 10/21/18 14:00 10/25/18 19:17 Kionex PO Not Given MoWeFr JAMIL
[2018-10-28] MEDS: LASIX PO SCH (15:38)
[2018-10-28] MEDS ORDERED: SUBLIMAZE ONE (17:10)
[2018-10-28] MEDS ORDERED: DIPRIVAN 10 MG/ML IV ONE (17:10)
[2018-10-28] MEDS ORDERED: XYLOCAINE MPF 2% ONE (17:10)
[2018-10-28] MEDS: ZAROXOLYN PO SCH (17:53)
[2018-10-28] MEDS ORDERED: ANCEF ONE (17:57)
[2018-10-28] MEDS ORDERED: NACL 0.9% IR ONE (18:24)
[2018-10-28] MEDS ORDERED: ZOFRAN ONE (18:39)
[2018-10-28] MEDS ORDERED: MARCAINE 0.25% INFILTRATI ONE (18:51)
--- NOTE | 2018-10-28 19:19 | Procedure Note ---
Date of procedure: 10/28/18 Pre-op diagnosis: displaced left proximal phalanx fracture second finger Post-op diagnosis: same Procedure: Open Reduction and internal fixation left proximal phalanx second finger Procedure The patient was brought to the patient in supine position following induction of intubation anesthesia the patient's left upper extremity was prepped and draped in the usual sterile manner. A timeout procedure was done to identify the patient and the correct operative site. The arm was exsanguinated followed by inflation of the pneumatic tourniquet to 250 mmHg. A mid lateral incision was made over the proximal phalanx and extended dorsally over the crease of the metacarpophalangeal joint and the proximal interphalangeal joint the incision was then carried down through skin and subcutaneous the extensor tendon was seen and was incised longitudinally exposing the fracture site And fracture fragments were manipulated and reduced using bone clamps and held temporarily with a smooth K wire on AP and lateral view was obtained showing good reduction of the fracture Interfragmentary screw was applied from the medial surface using a 2.0 cortical screw A 10 hole T-type mini locking plate was applied to the proximal portion of the proximal phalanx and carried down distally towards the condylar region lock screws of various lengths was applied on AP and lateral view was obtained showing good reduction of the fracture and placement of the hardware Was 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 Dressings were applied as well as a AlumaFoam splint with the finger in 60 of palmar flexion at the present at the metacarpophalangeal and PIP joints. The patient was then extubated and was taken to postanesthesia recovery in stable condition Anesthesia: MAC Surgeon: DIYA FINLEY Estimated blood loss: minimal Pathology: none Condition: stable Disposition: PACU
[2018-10-28] MEDS ORDERED: APRESOLINE ONE (19:27)
[2018-10-28] MEDS: PRAVACHOL PO SCH (22:42)
[2018-10-28] MEDS: RisperDAL PO SCH (22:42)
[2018-10-28] MEDS: PERCOCET 5/325 PO PRN (22:48)
[2018-10-29] MEDS: HumuLIN R SUB-Q SCH ×5 (01:29→22:36)
[2018-10-29] MEDS: MORPHINE IV PRN (04:52)
[2018-10-29] MEDS: LASIX PO SCH (05:40)
[2018-10-29] MEDS: HEPARIN SUB-Q SCH ×3 (05:40→22:27)
[2018-10-29 06:50] LABS: BUN/Creatinine Ratio 37; Blood Urea Nitrogen 56 mg/dL (9-20); Calcium 8.9 mg/dL (8.4-10.2); Hemolysis Index 0
--- NOTE | 2018-10-29 07:43 | XRay Report ---
LEFT FINGERS, 2 VIEWS History: Fracture of left hand, second digit proximal phalanx fracture. Findings: Correlation is made with the x-rays dated 10/26/18. 2 fluoroscopic images of the left fingers were obtained following internal fixation of the proximal phalanx of the index finger with metal plate and screws. Alignment is anatomic. The remaining bony structures are grossly intact. Mild osteoarthritic changes are noted throughout the fingers. Impression: Internal fixation of a left second digit fracture as described.
[2018-10-29] MEDS: KIONEX PO SCH (10:32)
[2018-10-29] MEDS: PEPCID PO SCH (10:32)
[2018-10-29] MEDS: FEOSOL PO SCH (10:32)
[2018-10-29] MEDS: ASPIRIN PO SCH (10:32)
[2018-10-29] MEDS: COREG PO SCH ×2 (10:32→22:37)
[2018-10-29] MEDS: SODIUM CHLORIDE FLUSH SYRINGE 10 ML IV SCH ×2 (10:33→22:36)
[2018-10-29] MEDS: PERCOCET 5/325 PO PRN ×2 (10:50→17:35)
--- NOTE | 2018-10-29 14:00 | Progress Note ---
Assessment and Plan 1. Acute kidney injury: MAXIMO likely Vasomotor / hemodynamic mediated in the setting of hypotension. Patient was started on hemodialysis on 10/11/2018 due to continued decline in the Renal function and hyperkalemia. He was last dialyzed on 10/18/18. Likely CKD stage 3, creatinine level fluctuating. 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 2. FEN: Volume overload, continue Lasix and Metolazone. S/p multiple sessions of Isolated UF. Volume status is better. Hyperkalemia, Kayexalate daily. Low potassium diet. 3. CHF exacerbation: Improved. 4. Hypotension: BP is better. 5. Anemia: S/p PRBC. Monitor. 6. Left 2nd finger fracture: S/p ORIF. Subjective Date of service: 10/29/18 Principal diagnosis: Severe Sepsis with Shock; Acute encephalopathy; MAXIMO; Diabetes II; CMOP Interval history: Patient was seen and examined at the bedside. Feeling better. Objective - Vital Signs Vital signs: Vital Signs - 12hr 10/29/18 10/29/18 04:46 11:42 Temperature 97.8 F 97.5 F L Pulse Rate 87 76 Respiratory 20 18 Rate Blood Pressure 142/74 163/85 O2 Sat by Pulse 98 100 Oximetry - General Appearance General appearance: well-developed, well-nourished, appears stated age, other (not in distress) EENT: ATNC, PERRL, mucous membranes moist, hearing intact, vision intact Neck: supple Respiratory: Present: Clear to Ascultation Cardiology: regular, S1S2, no murmurs Gastrointestinal: normoactive bowel sounds, no tenderness, no distended Integumentary: chronic venous stasis Neurologic: no focal deficit, no asterixis, alert and oriented x3 Musculoskeletal: other (trace LE edema, left index finger splint) - Lab 10/28/18 03:24 10/29/18 04:50 Most recent lab results Calcium 8.9 mg/dL (8.4-10.2) 10/29/18 04:50 Phosphorus 4.70 mg/dL (2.5-4.5) H 10/21/18 06:26 Magnesium 2.20 mg/dL (1.7-2.3) 10/21/18 06:26 Urine Creatinine 118.6 mg/dL (0.1-20.0) H 10/10/18 22:30 Urine Sodium 35 mmol/L 10/10/18 22:30 Urine Total Protein 152 mg/dL (5-11.8) H 10/10/18 22:30 Medications & Allergies - Medications Allergies/Adverse Reactions: Allergies No Known Allergies Allergy (Unverified 10/09/18 10:44) Home Medications: Home Medications Medication Instructions Recorded Confirmed Last Taken Type Carvedilol [Coreg] 3.125 mg PO BID 10/09/18 10/09/[address] [DepaKOTE DR] 500 mg PO BID 10/09/18 10/09/18 Unknown History Ferrous Sulfate [Feosol] 325 mg PO QDAY 10/09/18 10/09/18 Unknown History Furosemide [Lasix] 80 mg PO DAILY 10/09/18 10/09/18 Unknown History Gabapentin [Neurontin] 300 mg PO Q8HR 10/09/18 10/09/18 Unknown History ISOSORBIDE MONOnitrate [Imdur ER] 30 mg PO DAILY 10/09/18 10/09/18 Unknown History Insulin Glargine,Hum.rec.anlog 40 units SQ QHS 10/09/18 10/09/18 Unknown History [Lantus] Magnesium Oxide [Mag-Ox] 400 mg PO DAILY 10/09/18 10/09/18 Unknown History Simvastatin (Nf) [Zocor TAB] 20 mg PO QHS 10/09/18 10/09/18 Unknown History Sulfamethoxazole/Trimethoprim 1 each PO BID 10/09/18 10/09/18 Unknown History [Bactrim DS TAB] glipiZIDE [Glipizide] 10 mg PO DAILY 10/09/18 10/09/18 Unknown History hydrALAZINE [Apresoline TAB] 100 mg PO BID 10/09/18 10/09/18 Unknown History risperiDONE [RisperDAL] 1 mg PO QHS 10/09/18 10/09/18 Unknown History Active Medications: Generic Name Dose Route Start Last Admin Trade Name Freq PRN Reason Stop Dose Admin Albumin Human 25 gm 10/11/18 09:35 Alburx 25% (Albumin) IV JUDE PRN Hypotension Aspirin 325 mg 10/10/18 10:00 10/29/18 10:32 Aspirin PO 325 mg QDAY JAMIL Administration Carvedilol 6.25 mg 10/14/18 22:00 10/29/18 10:32 Coreg PO 6.25 mg BID JAMIL Administration Dextrose 50 ml 10/10/18 11:03 10/16/18 07:14 D50w (25gm) Syringe IV 50 ml PRN PRN Administration Hypoglycemia Famotidine 20 mg 10/10/18 12:00 10/29/18 10:32 Pepcid PO 20 mg DAILY JAMIL Administration Ferrous Sulfate 325 mg 10/10/18 10:00 10/29/18 10:32 Feosol PO 325 mg QDAY JAMIL Administration Furosemide 80 mg 10/28/18 15:00 10/29/18 05:40 Lasix PO 80 mg DAILY@0600 [facility] Administration Heparin Sodium (Porcine) 5,000 unit 10/11/18 15:00 10/29/18 13:35 Heparin SUB-Q 5,000 unit Q8HR JAMIL Administration Hydralazine HCl 20 mg 10/13/18 18:43 10/24/18 01:11 Apresoline IV 20 mg Q4HR PRN Administration Increased Blood Pressure Insulin Human Isoph/Insulin Regular 8 unit 10/24/18 17:00 10/29/18 08:50 Humulin 70/30 SUB-Q 8 unit BIDDIAB JAMIL Administration Insulin Human Regular 0 units 10/10/18 11:30 10/29/18 12:16 Humulin R SUB-Q 3 units ACHS [facility] Administration Protocol Magnesium Hydroxide 30 ml 10/17/18 14:28 10/19/18 10:58 Milk Of Magnesia PO 30 ml QDAY PRN Administration Constipation Metolazone 5 mg 10/23/18 22:00 10/28/18 17:53 Zaroxolyn PO Not Given DAILY@1730 [facility] Morphine Sulfate 1 mg 10/27/18 11:23 10/29/18 04:52 Morphine IV 1 mg Q4H PRN Administration Pain , Moderate Oxycodone/Acetaminophen 1 tab 10/19/18 10:18 10/29/18 10:50 Percocet 5/325 PO 1 tab Q8H PRN Administration Pain, Moderate (4-6) Pravastatin Sodium 40 mg 10/09/18 22:00 10/28/18 22:42 Pravachol PO 40 mg QHS JAMIL Administration Risperidone 1 mg 10/09/18 22:00 10/28/18 22:42 Risperdal PO 1 mg QHS JAMIL Administration Sodium Chloride 10 ml 10/09/18 13:00 10/29/18 10:33 Sodium Chloride Flush Syringe 10 Ml IV 10 ml BID JAMIL Administration Sodium Chloride 10 ml 10/09/18 13:00 Sodium Chloride Flush Syringe 10 Ml IV PRN PRN LINE FLUSH Sodium Polystyrene Sulfonate 30 gm 10/29/18 10:00 10/29/18 10:32 Kionex PO 30 gm DAILY JAMIL Administration
--- NOTE | 2018-10-29 14:26 | Progress Note ---
Assessment and Plan Patient alert, awake. Resting on room air.O2 saturation 100%. No acute respiratory distress. Patients V/Q scan reported intermediate probability for PE. Venous doppler studies of legs reported No DVT. Patient repeat ultrasound of chest reported no significant pleural effusions for thoracentesis. Patient anemia stable. Recent HGB 8.1. Patient had left hand finger surgery yesterday. - Patient Problems (1) CHF (congestive heart failure) Current Visit: Yes Status: Acute Qualifiers: Heart failure type: systolic Heart failure chronicity: acute Qualified Code(s): I50.21 - Acute systolic (congestive) heart failure Plan to address problem: Management as per cardiology. (2) Chest pain Current Visit: Yes Status: Acute Plan to address problem: Management as per cardiology. (3) ACS (acute coronary syndrome) Current Visit: Yes Status: Acute Plan to address problem: Management as per cardiology. (4) ARF (acute renal failure) with tubular necrosis Current Visit: Yes Status: Acute Plan to address problem: Management as per nephrology (5) Encephalopathy Current Visit: Yes Status: Acute Plan to address problem: Management as per primary care. (6) Pleural effusion, right Current Visit: Yes Status: Acute Plan to address problem: Repeat ultrasound of chest reported no significant pleural effusions. So no thoracentesis done. (7) Pulmonary infiltrates on CXR Current Visit: Yes Status: Acute Plan to address problem: Pulmonary infiltrates or atelectasis on the right side. Patient is treated with levaquin. (8) Acute respiratory failure with hypoxia and hypercapnia Current Visit: Yes Status: Acute Plan to address problem: POC ABG pH 7.286 (7.35-7.45) L 10/10/18 12:22 POC ABG pCO2 47.3 (35-45) H 10/10/18 12:22 POC ABG pO2 65 (80-105) L 10/10/18 12:22 POC ABG HCO3 22.5 10/10/18 12:22 POC ABG Total CO2 24 10/10/18 12:22 POC ABG O2 Sat 90 10/10/18 12:22 Recommend O2 2 litres via nasal canula. Brovanna/budesonide aerosol treatments q 12 hours. Albuterol/atrovent aerosol treatments q 6 hours prn for shortness of breath. Repeat ABGs PO2 77 on room air. Continue S/C heparin (9) Anemia Current Visit: Yes Status: Acute Plan to address problem: Recent HGB is 8.1. No active signs of bleeding. Anemia likely from chronic kidney disease. Subjective Date of service: 10/29/18 Principal diagnosis: Severe Sepsis with Shock; Acute encephalopathy; MAXIMO; Diabe helen II; CMOP Interval history: Patient alert, awake. Resting on room air.O2 saturation 100%. No acute respiratory distress. Patients V/Q scan reported intermediate probability for PE. Venous doppler studies of legs reported No DVT. Patient repeat ultrasound of chest reported no significant pleural effusions for thoracentesis. Patient anemia stable. Recent HGB 8.1. Patient had left hand finger surgery yesterday. Objective Vital Signs - 12hr 10/29/18 10/29/18 04:46 11:42 Temperature 97.8 F 97.5 F L Pulse Rate 87 76 Respiratory 20 18 Rate Blood Pressure 142/74 163/85 O2 Sat by Pulse 98 100 Oximetry Constitutional: no acute distress, alert, other (middle aged AAM, normocephalic and atraumatic with normal respiratory effort) Eyes: non-icteric ENT: oropharynx moist Neck: supple, no lymphadenopathy, no JVD Effort: normal Ascultation: Bilateral: diminished breath sounds, rales (bases), rhonchi (bases) Percussion: Bilateral: not dull Cardiovascular: regular rate and rhythm Gastrointestinal: normoactive bowel sounds, soft, non-tender, non-distended Integumentary: rash (feet) Extremities: no cyanosis, pulses normal, no ischemia or petechiae, edema (trace to 1+), other (Dressing on left hand finger.) Neurologic: normal mental status, non-focal exam, pupils equal and round, motor strength normal and, other (sensory numbness to feet) Psychiatric: mood appropriate, affect normal, other CBC and BMP: 10/28/18 03:24 10/29/18 04:50 ABG, PT/INR, D-dimer: ABG POC ABG pH 7.359 (7.35-7.45) 10/15/18 13:21 POC ABG pCO2 48.4 (35-45) H 10/15/18 13:21 POC ABG pO2 77 (80-105) L 10/15/18 13:21 POC ABG HCO3 27.3 10/15/18 13:21 POC ABG Total CO2 29 10/15/18 13:21 POC ABG O2 Sat 95 10/15/18 13:21 PT/INR, D-dimer PT 13.5 Sec. (12.2-14.9) 10/28/18 03:24 INR 0.99 (0.87-1.13) 10/28/18 03:24 D-Dimer 927.57 ng/mlDDU (0-234) H 10/10/18 13:36 Abnormal lab findings: Abnormal Labs 10/09/18 10/09/18 10/09/18 11:22 11:22 11:22 WBC 3.3 L RBC 3.03 L Hgb 8.4 L Hct 25.8 L MCH RDW 18.7 H Lymph % (Auto) [place] % (Auto) 12.1 H Eos % (Auto) 4.6 H Lymph # 0.5 L [place] # Seg Neutrophils % Seg Neuts % (Manual) Lymphocytes % (Manual) Seg Neutrophils # Lymphocytes # (Manual) APTT 42.8 H D-Dimer Heparin Anti-Xa Level POC ABG pH POC ABG pCO2 POC ABG pO2 Sodium Potassium 5.2 H Chloride 108.2 H Carbon Dioxide BUN 49 H Creatinine 1.9 H Glucose 153 H POC Glucose Hemoglobin A1c Lactic Acid Calcium Phosphorus Magnesium Alkaline Phosphatase Total Creatine Kinase 481 H CK-MB (CK-2) 20.5 H CK-MB (CK-2) Rel Index 4.2 H Troponin T 0.153 H* NT-Pro-B Natriuret Pep 2963 H Serum Total Protein Total Protein Albumin Qhynu-0-Dzmuqziwe PEP Interpretation LDL Cholesterol Direct 49 L HDL Cholesterol 73 H PTH Intact Urine Creatinine Urine Total Protein Valproic Acid Crossmatch 10/09/18 10/09/18 10/09/18 13:43 14:25 14:25 WBC RBC Hgb 8.2 L Hct 26.2 L MCH RDW Lymph % (Auto) [place] % (Auto) Eos % (Auto) Lymph # [place] # Seg Neutrophils % Seg Neuts % (Manual) Lymphocytes % (Manual) Seg Neutrophils # Lymphocytes # (Manual) APTT 42.4 H D-Dimer Heparin Anti-Xa Level POC ABG pH POC ABG pCO2 POC ABG pO2 Sodium Potassium Chloride Carbon Dioxide BUN Creatinine Glucose POC Glucose 167 H Hemoglobin A1c Lactic Acid Calcium Phosphorus Magnesium Alkaline Phosphatase Total Creatine Kinase CK-MB (CK-2) CK-MB (CK-2) Rel Index Troponin T NT-Pro-B Natriuret Pep Serum Total Protein Total Protein Albumin Mvmvd-6-Atjbewqeo PEP Interpretation LDL Cholesterol Direct HDL Cholesterol PTH Intact Urine Creatinine Urine Total Protein Valproic Acid Crossmatch 10/09/18 10/09/18 10/09/18 17:28 20:56 21:23 WBC RBC Hgb Hct MCH RDW Lymph % (Auto) [place] % (Auto) Eos % (Auto) Lymph # [place] # Seg Neutrophils % Seg Neuts % (Manual) Lymphocytes % (Manual) Seg Neutrophils # Lymphocytes # (Manual) APTT D-Dimer Heparin Anti-Xa Level 0.28 L POC ABG pH POC ABG pCO2 POC ABG pO2 Sodium Potassium Chloride Carbon Dioxide BUN Creatinine Glucose POC Glucose Hemoglobin A1c Lactic Acid Calcium Phosphorus Magnesium Alkaline Phosphatase Total Creatine Kinase CK-MB (CK-2) CK-MB (CK-2) Rel Index Troponin T 0.136 H* 0.139 H* NT-Pro-B Natriuret Pep Serum Total Protein Total Protein Albumin Wvdvm-0-Cxuidrcsg PEP Interpretation LDL Cholesterol Direct HDL Cholesterol PTH Intact Urine Creatinine Urine Total Protein Valproic Acid Crossmatch 10/10/18 10/10/18 10/10/18 00:10 05:00 05:00 WBC 3.3 L RBC 2.99 L Hgb 8.2 L Hct 25.9 L MCH 27 L RDW 19.2 H Lymph % (Auto) [place] % (Auto) 13.2 H Eos % (Auto) 5.8 H Lymph # 0.5 L [place] # Seg Neutrophils % Seg Neuts % (Manual) Lymphocytes % (Manual) Seg Neutrophils # Lymphocytes # (Manual) APTT D-Dimer Heparin Anti-Xa Level POC ABG pH POC ABG pCO2 POC ABG pO2 Sodium Potassium 5.6 H Chloride 110.8 H Carbon Dioxide BUN 50 H Creatinine 2.2 H Glucose 52 L POC Glucose 60 L Hemoglobin A1c Lactic Acid Calcium 8.1 L Phosphorus Magnesium Alkaline Phosphatase Total Creatine Kinase CK-MB (CK-2) CK-MB (CK-2) Rel Index Troponin T NT-Pro-B Natriuret Pep Serum Total Protein Total Protein Albumin Cjdcv-5-Umdwcapat PEP Interpretation LDL Cholesterol Direct HDL Cholesterol PTH Intact Urine Creatinine Urine Total Protein Valproic Acid Crossmatch 10/10/18 10/10/18 10/10/18 05:00 06:11 11:30 WBC RBC Hgb Hct MCH RDW Lymph % (Auto) [place] % (Auto) Eos % (Auto) Lymph # [place] # Seg Neutrophils % Seg Neuts % (Manual) Lymphocytes % (Manual) Seg Neutrophils # Lymphocytes # (Manual) APTT D-Dimer Heparin Anti-Xa Level POC ABG pH POC ABG pCO2 POC ABG pO2 Sodium Potassium Chloride Carbon Dioxide BUN Creatinine Glucose POC Glucose 57 L 48 L Hemoglobin A1c 8.2 H Lactic Acid Calcium Phosphorus Magnesium Alkaline Phosphatase Total Creatine Kinase CK-MB (CK-2) CK-MB (CK-2) Rel Index Troponin T NT-Pro-B Natriuret Pep Serum Total Protein Total Protein Albumin Gypjr-7-Gfdneurzl PEP Interpretation LDL Cholesterol Direct HDL Cholesterol PTH Intact Urine Creatinine Urine Total Protein Valproic Acid Crossmatch 10/10/18 10/10/18 10/10/18 12:22 13:36 13:36 WBC RBC Hgb Hct MCH RDW Lymph % (Auto) [place] % (Auto) Eos % (Auto) Lymph # [place] # Seg Neutrophils % Seg Neuts % (Manual) Lymphocytes % (Manual) Seg Neutrophils # Lymphocytes # (Manual) APTT D-Dimer 927.57 H Heparin Anti-Xa Level POC ABG pH 7.286 L POC ABG pCO2 47.3 H POC ABG pO2 65 L Sodium Potassium Chloride Carbon Dioxide BUN Creatinine Glucose POC Glucose Hemoglobin A1c Lactic Acid 0.60 L Calcium Phosphorus Magnesium Alkaline Phosphatase Total Creatine Kinase CK-MB (CK-2) CK-MB (CK-2) Rel Index Troponin T NT-Pro-B Natriuret Pep Serum Total Protein Total Protein Albumin Sojzn-7-Xyvqylgqo PEP Interpretation LDL Cholesterol Direct HDL Cholesterol PTH Intact Urine Creatinine Urine Total Protein Valproic Acid Crossmatch 10/10/18 10/10/18 10/10/18 16:42 21:12 22:30 WBC RBC Hgb Hct MCH RDW Lymph % (Auto) [place] % (Auto) Eos % (Auto) Lymph # [place] # Seg Neutrophils % Seg Neuts % (Manual) Lymphocytes % (Manual) Seg Neutrophils # Lymphocytes # (Manual) APTT D-Dimer Heparin Anti-Xa Level POC ABG pH POC ABG pCO2 POC ABG pO2 Sodium Potassium Chloride Carbon Dioxide BUN Creatinine Glucose POC Glucose 122 H 119 H Hemoglobin A1c Lactic Acid Calcium Phosphorus Magnesium Alkaline Phosphatase Total Creatine Kinase CK-MB (CK-2) CK-MB (CK-2) Rel Index Troponin T NT-Pro-B Natriuret Pep Serum Total Protein Total Protein Albumin Cgtyi-4-Ewcogxvxr PEP Interpretation LDL Cholesterol Direct HDL Cholesterol PTH Intact Urine Creatinine 118.6 H Urine Total Protein 152 H Valproic Acid Crossmatch 10/11/18 10/11/18 10/11/18 04:31 04:31 13:15 WBC RBC Hgb 8.7 L Hct 27.9 L MCH RDW Lymph % (Auto) [place] % (Auto) Eos % (Auto) Lymph # [place] # Seg Neutrophils % Seg Neuts % (Manual) Lymphocytes % (Manual) Seg Neutrophils # Lymphocytes # (Manual) APTT D-Dimer Heparin Anti-Xa Level POC ABG pH POC ABG pCO2 POC ABG pO2 Sodium Potassium 6.6 H* 6.4 H* Chloride Carbon Dioxide BUN 55 H Creatinine 2.9 H Glucose POC Glucose Hemoglobin A1c Lactic Acid Calcium 7.6 L Phosphorus Magnesium Alkaline Phosphatase Total Creatine Kinase CK-MB (CK-2) CK-MB (CK-2) Rel Index Troponin T NT-Pro-B Natriuret Pep Serum Total Protein Total Protein Albumin Kslkb-6-Oqglcihra PEP Interpretation LDL Cholesterol Direct HDL Cholesterol PTH Intact Urine Creatinine Urine Total Protein Valproic Acid Crossmatch 10/11/18 10/11/18 10/12/18 20:45 22:37 04:25 WBC RBC Hgb Hct MCH RDW Lymph % (Auto) [place] % (Auto) Eos % (Auto) Lymph # [place] # Seg Neutrophils % Seg Neuts % (Manual) Lymphocytes % (Manual) Seg Neutrophils # Lymphocytes # (Manual) APTT D-Dimer Heparin Anti-Xa Level POC ABG pH POC ABG pCO2 POC ABG pO2 Sodium Potassium Chloride Carbon Dioxide BUN 37 H 38 H Creatinine 2.4 H 2.3 H Glucose POC Glucose 117 H Hemoglobin A1c Lactic Acid Calcium 7.5 L 7.6 L Phosphorus Magnesium Alkaline Phosphatase 261 H Total Creatine Kinase CK-MB (CK-2) CK-MB (CK-2) Rel Index Troponin T NT-Pro-B Natriuret Pep Serum Total Protein Total Protein 6.2 L Albumin 3.0 L Cgwxj-5-Obzdvlevn PEP Interpretation LDL Cholesterol Direct HDL Cholesterol PTH Intact Urine Creatinine Urine Total Protein Valproic Acid Crossmatch 10/12/18 10/12/18 10/13/18 10:02 21:33 03:28 WBC RBC Hgb 7.6 L 7.7 L Hct 24.1 L 23.8 L MCH RDW Lymph % (Auto) [place] % (Auto) Eos % (Auto) Lymph # [place] # Seg Neutrophils % Seg Neuts % (Manual) Lymphocytes % (Manual) Seg Neutrophils # Lymphocytes # (Manual) APTT D-Dimer Heparin Anti-Xa Level POC ABG pH POC ABG pCO2 POC ABG pO2 Sodium Potassium Chloride Carbon Dioxide BUN Creatinine Glucose POC Glucose 109 H Hemoglobin A1c Lactic Acid Calcium Phosphorus Magnesium Alkaline Phosphatase Total Creatine Kinase CK-MB (CK-2) CK-MB (CK-2) Rel Index Troponin T NT-Pro-B Natriuret Pep Serum Total Protein Total Protein Albumin Qfdym-9-Pamkedkkz PEP Interpretation LDL Cholesterol Direct HDL Cholesterol PTH Intact Urine Creatinine Urine Total Protein Valproic Acid Crossmatch 10/13/18 10/13/18 10/13/18 03:28 08:27 15:04 WBC RBC Hgb Hct MCH RDW Lymph % (Auto) [place] % (Auto) Eos % (Auto) Lymph # [place] # Seg Neutrophils % Seg Neuts % (Manual) Lymphocytes % (Manual) Seg Neutrophils # Lymphocytes # (Manual) APTT D-Dimer Heparin Anti-Xa Level POC ABG pH POC ABG pCO2 POC ABG pO2 Sodium Potassium Chloride Carbon Dioxide BUN 38 H Creatinine 1.9 H Glucose POC Glucose 136 H 160 H Hemoglobin A1c Lactic Acid Calcium 8.3 L Phosphorus Magnesium Alkaline Phosphatase Total Creatine Kinase CK-MB (CK-2) CK-MB (CK-2) Rel Index Troponin T NT-Pro-B Natriuret Pep Serum Total Protein Total Protein Albumin Pwhne-4-Tqelhrjzf PEP Interpretation LDL Cholesterol Direct HDL Cholesterol PTH Intact Urine Creatinine Urine Total Protein Valproic Acid Crossmatch 10/13/18 10/13/18 10/14/18 16:53 23:06 06:06 WBC RBC Hgb Hct MCH RDW Lymph % (Auto) [place] % (Auto) Eos % (Auto) Lymph # [place] # Seg Neutrophils % Seg Neuts % (Manual) Lymphocytes % (Manual) Seg Neutrophils # Lymphocytes # (Manual) APTT D-Dimer Heparin Anti-Xa Level POC ABG pH POC ABG pCO2 POC ABG pO2 Sodium Potassium Chloride 107.7 H Carbon Dioxide BUN 39 H Creatinine 1.8 H Glucose 116 H POC Glucose 161 H 213 H Hemoglobin A1c Lactic Acid Calcium Phosphorus Magnesium 2.40 H Alkaline Phosphatase Total Creatine Kinase CK-MB (CK-2) CK-MB (CK-2) Rel Index Troponin T NT-Pro-B Natriuret Pep Serum Total Protein Total Protein Albumin Woveg-7-Duvfyvfxt PEP Interpretation LDL Cholesterol Direct HDL Cholesterol PTH Intact Urine Creatinine Urine Total Protein Valproic Acid Crossmatch 10/14/18 10/14/18 10/14/18 06:34 11:01 13:50 WBC RBC Hgb 7.8 L Hct 24.8 L MCH RDW Lymph % (Auto) [place] % (Auto) Eos % (Auto) Lymph # [place] # Seg Neutrophils % Seg Neuts % (Manual) Lymphocytes % (Manual) Seg Neutrophils # Lymphocytes # (Manual) APTT D-Dimer Heparin Anti-Xa Level POC ABG pH POC ABG pCO2 POC ABG pO2 Sodium Potassium Chloride Carbon Dioxide BUN Creatinine Glucose POC Glucose 118 H 67 L Hemoglobin A1c Lactic Acid Calcium Phosphorus Magnesium Alkaline Phosphatase Total Creatine Kinase CK-MB (CK-2) CK-MB (CK-2) Rel Index Troponin T NT-Pro-B Natriuret Pep Serum Total Protein Total Protein Albumin Khojk-4-Djywqepad PEP Interpretation LDL Cholesterol Direct HDL Cholesterol PTH Intact Urine Creatinine Urine Total Protein Valproic Acid Crossmatch 10/14/18 10/15/18 10/15/18 21:37 05:39 05:39 WBC RBC Hgb 7.6 L Hct 23.5 L MCH RDW Lymph % (Auto) [place] % (Auto) Eos % (Auto) Lymph # [place] # Seg Neutrophils % Seg Neuts % (Manual) Lymphocytes % (Manual) Seg Neutrophils # Lymphocytes # (Manual) APTT D-Dimer Heparin Anti-Xa Level POC ABG pH POC ABG pCO2 POC ABG pO2 Sodium Potassium Chloride Carbon Dioxide BUN Creatinine Glucose POC Glucose 125 H Hemoglobin A1c Lactic Acid Calcium Phosphorus Magnesium Alkaline Phosphatase Total Creatine Kinase CK-MB (CK-2) CK-MB (CK-2) Rel Index Troponin T NT-Pro-B Natriuret Pep Serum Total Protein 5.6 L Total Protein Albumin 2.5 L Tjsfc-1-Swsdyesbq 0.4 H PEP Interpretation see below H LDL Cholesterol Direct HDL Cholesterol PTH Intact Urine Creatinine Urine Total Protein Valproic Acid Crossmatch 10/15/18 10/15/18 10/15/18 05:39 06:27 07:48 WBC RBC Hgb Hct MCH RDW Lymph % (Auto) [place] % (Auto) Eos % (Auto) Lymph # [place] # Seg Neutrophils % Seg Neuts % (Manual) Lymphocytes % (Manual) Seg Neutrophils # Lymphocytes # (Manual) APTT D-Dimer Heparin Anti-Xa Level POC ABG pH POC ABG pCO2 POC ABG pO2 Sodium Potassium Chloride Carbon Dioxide BUN 45 H Creatinine 2.1 H Glucose 59 L POC Glucose 46 L 65 L Hemoglobin A1c Lactic Acid Calcium 8.3 L Phosphorus Magnesium Alkaline Phosphatase Total Creatine Kinase CK-MB (CK-2) CK-MB (CK-2) Rel Index Troponin T NT-Pro-B Natriuret Pep Serum Total Protein Total Protein Albumin Iacqz-4-Fomyarfpq PEP Interpretation LDL Cholesterol Direct HDL Cholesterol PTH Intact Urine Creatinine Urine Total Protein Valproic Acid Crossmatch 10/15/18 10/15/18 10/15/18 13:21 13:24 21:23 WBC RBC Hgb Hct MCH RDW Lymph % (Auto) [place] % (Auto) Eos % (Auto) Lymph # [place] # Seg Neutrophils % Seg Neuts % (Manual) Lymphocytes % (Manual) Seg Neutrophils # Lymphocytes # (Manual) APTT D-Dimer Heparin Anti-Xa Level POC ABG pH POC ABG pCO2 48.4 H POC ABG pO2 77 L Sodium Potassium Chloride Carbon Dioxide BUN Creatinine Glucose POC Glucose 106 H 160 H Hemoglobin A1c Lactic Acid Calcium Phosphorus Magnesium Alkaline Phosphatase Total Creatine Kinase CK-MB (CK-2) CK-MB (CK-2) Rel Index Troponin T NT-Pro-B Natriuret Pep Serum Total Protein Total Protein Albumin Kgidk-2-Stjohlqol PEP Interpretation LDL Cholesterol Direct HDL Cholesterol PTH Intact Urine Creatinine Urine Total Protein Valproic Acid Crossmatch 10/16/18 10/16/18 10/16/18 06:25 06:49 21:42 WBC RBC Hgb Hct MCH RDW Lymph % (Auto) [place] % (Auto) Eos % (Auto) Lymph # [place] # Seg Neutrophils % Seg Neuts % (Manual) Lymphocytes % (Manual) Seg Neutrophils # Lymphocytes # (Manual) APTT D-Dimer Heparin Anti-Xa Level POC ABG pH POC ABG pCO2 POC ABG pO2 Sodium Potassium Chloride 107.7 H Carbon Dioxide BUN 53 H Creatinine 2.2 H Glucose 61 L POC Glucose 51 L 153 H Hemoglobin A1c Lactic Acid Calcium Phosphorus Magnesium Alkaline Phosphatase Total Creatine Kinase CK-MB (CK-2) CK-MB (CK-2) Rel Index Troponin T NT-Pro-B Natriuret Pep Serum Total Protein Total Protein Albumin Ugxgo-0-Amzeybmbo PEP Interpretation LDL Cholesterol Direct HDL Cholesterol PTH Intact Urine Creatinine Urine Total Protein Valproic Acid Crossmatch 10/17/18 10/17/18 10/17/18 05:22 05:22 05:22 WBC RBC Hgb 7.6 L Hct 23.1 L MCH RDW Lymph % (Auto) [place] % (Auto) Eos % (Auto) Lymph # [place] # Seg Neutrophils % Seg Neuts % (Manual) Lymphocytes % (Manual) Seg Neutrophils # Lymphocytes # (Manual) APTT D-Dimer Heparin Anti-Xa Level POC ABG pH POC ABG pCO2 POC ABG pO2 Sodium Potassium Chloride Carbon Dioxide BUN 59 H Creatinine 2.2 H Glucose 111 H POC Glucose Hemoglobin A1c Lactic Acid Calcium Phosphorus Magnesium Alkaline Phosphatase Total Creatine Kinase CK-MB (CK-2) CK-MB (CK-2) Rel Index Troponin T NT-Pro-B Natriuret Pep Serum Total Protein Total Protein Albumin Tifrc-5-Xbpahmupx PEP Interpretation LDL Cholesterol Direct HDL Cholesterol PTH Intact 152.8 H Urine Creatinine Urine Total Protein Valproic Acid Crossmatch 10/17/18 10/17/18 10/18/18 12:17 21:32 06:36 WBC RBC Hgb Hct MCH RDW Lymph % (Auto) [place] % (Auto) Eos % (Auto) Lymph # [place] # Seg Neutrophils % Seg Neuts % (Manual) Lymphocytes % (Manual) Seg Neutrophils # Lymphocytes # (Manual) APTT D-Dimer Heparin Anti-Xa Level POC ABG pH POC ABG pCO2 POC ABG pO2 Sodium Potassium Chloride Carbon Dioxide BUN Creatinine Glucose POC Glucose 130 H 402 H 217 H Hemoglobin A1c Lactic Acid Calcium Phosphorus Magnesium Alkaline Phosphatase Total Creatine Kinase CK-MB (CK-2) CK-MB (CK-2) Rel Index Troponin T NT-Pro-B Natriuret Pep Serum Total Protein Total Protein Albumin Qwhge-5-Vvleyfdgr PEP Interpretation LDL Cholesterol Direct HDL Cholesterol PTH Intact Urine Creatinine Urine Total Protein Valproic Acid Crossmatch 10/18/18 10/18/18 10/18/18 08:19 12:24 18:30 WBC RBC Hgb Hct MCH RDW Lymph % (Auto) [place] % (Auto) Eos % (Auto) Lymph # [place] # Seg Neutrophils % Seg Neuts % (Manual) Lymphocytes % (Manual) Seg Neutrophils # Lymphocytes # (Manual) APTT D-Dimer Heparin Anti-Xa Level POC ABG pH POC ABG pCO2 POC ABG pO2 Sodium Potassium 5.6 H Chloride 107.3 H Carbon Dioxide BUN 62 H Creatinine 2.3 H Glucose 201 H POC Glucose 159 H 136 H Hemoglobin A1c Lactic Acid Calcium Phosphorus Magnesium Alkaline Phosphatase Total Creatine Kinase CK-MB (CK-2) CK-MB (CK-2) Rel Index Troponin T NT-Pro-B Natriuret Pep Serum Total Protein Total Protein Albumin Cpfdt-2-Xwawizqwl PEP Interpretation LDL Cholesterol Direct HDL Cholesterol PTH Intact Urine Creatinine Urine Total Protein Valproic Acid Crossmatch 10/19/18 10/19/18 10/19/18 04:53 04:53 11:33 WBC RBC 2.74 L Hgb 7.5 L Hct 23.0 L MCH 27 L RDW 17.9 H Lymph % (Auto) 11.3 L [place] % (Auto) 14.5 H Eos % (Auto) Lymph # 1.0 L [place] # 1.2 H Seg Neutrophils % 71.4 H Seg Neuts % (Manual) Lymphocytes % (Manual) Seg Neutrophils # Lymphocytes # (Manual) APTT D-Dimer Heparin Anti-Xa Level POC ABG pH POC ABG pCO2 POC ABG pO2 Sodium Potassium Chloride Carbon Dioxide 33 H BUN 33 H Creatinine Glucose 52 L POC Glucose 148 H Hemoglobin A1c Lactic Acid Calcium Phosphorus Magnesium Alkaline Phosphatase Total Creatine Kinase CK-MB (CK-2) CK-MB (CK-2) Rel Index Troponin T NT-Pro-B Natriuret Pep Serum Total Protein Total Protein Albumin Oncyi-0-Nxwfcwkqw PEP Interpretation LDL Cholesterol Direct HDL Cholesterol PTH Intact Urine Creatinine Urine Total Protein Valproic Acid Crossmatch 10/19/18 10/20/18 10/20/18 21:10 05:30 18:14 WBC RBC Hgb Hct MCH RDW Lymph % (Auto) [place] % (Auto) Eos % (Auto) Lymph # [place] # Seg Neutrophils % Seg Neuts % (Manual) Lymphocytes % (Manual) Seg Neutrophils # Lymphocytes # (Manual) APTT D-Dimer Heparin Anti-Xa Level POC ABG pH POC ABG pCO2 POC ABG pO2 Sodium Potassium 5.1 H Chloride Carbon Dioxide 31 H BUN 40 H Creatinine 1.6 H Glucose POC Glucose 132 H 114 H Hemoglobin A1c Lactic Acid Calcium Phosphorus Magnesium Alkaline Phosphatase Total Creatine Kinase CK-MB (CK-2) CK-MB (CK-2) Rel Index Troponin T NT-Pro-B Natriuret Pep Serum Total Protein Total Protein Albumin Qrezj-3-Bwvldhrwt PEP Interpretation LDL Cholesterol Direct HDL Cholesterol PTH Intact Urine Creatinine Urine Total Protein Valproic Acid Crossmatch 10/20/18 10/21/18 10/21/18 20:57 06:26 06:26 WBC RBC 2.76 L Hgb 7.7 L Hct 23.1 L MCH RDW 18.2 H Lymph % (Auto) [place] % (Auto) Eos % (Auto) Lymph # [place] # Seg Neutrophils % Seg Neuts % (Manual) 79.0 H Lymphocytes % (Manual) 9.0 L Seg Neutrophils # Lymphocytes # (Manual) 0.7 L APTT D-Dimer Heparin Anti-Xa Level POC ABG pH POC ABG pCO2 POC ABG pO2 Sodium 146 H Potassium Chloride Carbon Dioxide 31 H BUN 41 H Creatinine 1.6 H Glucose POC Glucose 196 H Hemoglobin A1c Lactic Acid Calcium Phosphorus 4.70 H Magnesium Alkaline Phosphatase Total Creatine Kinase CK-MB (CK-2) CK-MB (CK-2) Rel Index Troponin T NT-Pro-B Natriuret Pep Serum Total Protein Total Protein Albumin Jtlia-9-Uovxyuiyb PEP Interpretation LDL Cholesterol Direct HDL Cholesterol PTH Intact Urine Creatinine Urine Total Protein Valproic Acid Crossmatch 10/21/18 10/21/18 10/21/18 06:26 08:52 17:00 WBC RBC Hgb Hct MCH RDW Lymph % (Auto) [place] % (Auto) Eos % (Auto) Lymph # [place] # Seg Neutrophils % Seg Neuts % (Manual) Lymphocytes % (Manual) Seg Neutrophils # Lymphocytes # (Manual) APTT D-Dimer Heparin Anti-Xa Level POC ABG pH POC ABG pCO2 POC ABG pO2 Sodium Potassium Chloride Carbon Dioxide BUN Creatinine Glucose POC Glucose 172 H Hemoglobin A1c Lactic Acid Calcium Phosphorus Magnesium Alkaline Phosphatase 258 H Total Creatine Kinase CK-MB (CK-2) CK-MB (CK-2) Rel Index Troponin T NT-Pro-B Natriuret Pep Serum Total Protein Total Protein Albumin Ctcgu-7-Xeeyetcfx PEP Interpretation LDL Cholesterol Direct HDL Cholesterol PTH Intact Urine Creatinine Urine Total Protein Valproic Acid 46.4 L Crossmatch 10/21/18 10/22/18 10/22/18 23:37 05:25 05:25 WBC RBC 2.17 L Hgb 6.1 L Hct 20.7 L MCH RDW 18.2 H Lymph % (Auto) [place] % (Auto) 14.8 H Eos % (Auto) Lymph # [place] # 1.2 H Seg Neutrophils % Seg Neuts % (Manual) Lymphocytes % (Manual) Seg Neutrophils # Lymphocytes # (Manual) APTT D-Dimer Heparin Anti-Xa Level POC ABG pH POC ABG pCO2 POC ABG pO2 Sodium Potassium Chloride Carbon Dioxide 31 H BUN 45 H Creatinine 1.7 H Glucose 143 H POC Glucose 186 H Hemoglobin A1c Lactic Acid Calcium 8.3 L Phosphorus Magnesium Alkaline Phosphatase Total Creatine Kinase CK-MB (CK-2) CK-MB (CK-2) Rel Index Troponin T NT-Pro-B Natriuret Pep Serum Total Protein Total Protein Albumin Hqsvk-0-Bzpeeqdhk PEP Interpretation LDL Cholesterol Direct HDL Cholesterol PTH Intact Urine Creatinine Urine Total Protein Valproic Acid Crossmatch 10/22/18 10/22/18 10/22/18 10:31 12:27 17:13 WBC RBC Hgb Hct MCH RDW Lymph % (Auto) [place] % (Auto) Eos % (Auto) Lymph # [place] # Seg Neutrophils % Seg Neuts % (Manual) Lymphocytes % (Manual) Seg Neutrophils # Lymphocytes # (Manual) APTT D-Dimer Heparin Anti-Xa Level POC ABG pH POC ABG pCO2 POC ABG pO2 Sodium Potassium Chloride Carbon Dioxide BUN Creatinine Glucose POC Glucose 198 H 137 H Hemoglobin A1c Lactic Acid Calcium Phosphorus Magnesium Alkaline Phosphatase Total Creatine Kinase CK-MB (CK-2) CK-MB (CK-2) Rel Index Troponin T NT-Pro-B Natriuret Pep Serum Total Protein Total Protein Albumin [id number]-[id number] PEP Interpretation LDL Cholesterol Direct HDL Cholesterol PTH Intact Urine Creatinine Urine Total Protein Valproic Acid Crossmatch See Detail 10/22/18 10/23/18 10/23/18 20:35 06:00 09:07 WBC 11.1 H RBC 2.99 L Hgb 8.4 L Hct 25.7 L MCH RDW 17.9 H Lymph % (Auto) [place] % (Auto) Eos % (Auto) Lymph # [place] # Seg Neutrophils % Seg Neuts % (Manual) Lymphocytes % (Manual) Seg Neutrophils # Lymphocytes # (Manual) APTT D-Dimer Heparin Anti-Xa Level POC ABG pH POC ABG pCO2 POC ABG pO2 Sodium Potassium Chloride Carbon Dioxide BUN Creatinine Glucose POC Glucose 196 H 246 H Hemoglobin A1c Lactic Acid Calcium Phosphorus Magnesium Alkaline Phosphatase Total Creatine Kinase CK-MB (CK-2) CK-MB (CK-2) Rel Index Troponin T NT-Pro-B Natriuret Pep Serum Total Protein Total Protein Albumin Fzlzz-7-Sfzemtqtf PEP Interpretation LDL Cholesterol Direct HDL Cholesterol PTH Intact Urine Creatinine Urine Total Protein Valproic Acid Crossmatch 10/23/18 10/23/18 10/23/18 09:07 11:37 17:16 WBC RBC Hgb Hct MCH RDW Lymph % (Auto) [place] % (Auto) Eos % (Auto) Lymph # [place] # Seg Neutrophils % Seg Neuts % (Manual) Lymphocytes % (Manual) Seg Neutrophils # Lymphocytes # (Manual) APTT D-Dimer Heparin Anti-Xa Level POC ABG pH POC ABG pCO2 POC ABG pO2 Sodium Potassium 5.2 H Chloride Carbon Dioxide BUN 48 H Creatinine 2.4 H Glucose 247 H POC Glucose 222 H 196 H Hemoglobin A1c Lactic Acid Calcium Phosphorus Magnesium Alkaline Phosphatase Total Creatine Kinase CK-MB (CK-2) CK-MB (CK-2) Rel Index Troponin T NT-Pro-B Natriuret Pep Serum Total Protein Total Protein Albumin Wevry-0-Peniopcmq PEP Interpretation LDL Cholesterol Direct HDL Cholesterol PTH Intact Urine Creatinine Urine Total Protein Valproic Acid Crossmatch 10/23/18 10/24/18 10/24/18 21:39 04:13 04:13 WBC RBC 2.69 L Hgb 7.7 L Hct 23.4 L MCH RDW 18.3 H Lymph % (Auto) [place] % (Auto) Eos % (Auto) Lymph # [place] # Seg Neutrophils % Seg Neuts % (Manual) 77.0 H Lymphocytes % (Manual) 12.0 L Seg Neutrophils # Lymphocytes # (Manual) APTT D-Dimer Heparin Anti-Xa Level POC ABG pH POC ABG pCO2 POC ABG pO2 Sodium Potassium 5.1 H Chloride Carbon Dioxide BUN 53 H Creatinine 2.0 H Glucose 224 H POC Glucose 234 H Hemoglobin A1c Lactic Acid Calcium 8.3 L Phosphorus Magnesium Alkaline Phosphatase Total Creatine Kinase CK-MB (CK-2) CK-MB (CK-2) Rel Index Troponin T NT-Pro-B Natriuret Pep Serum Total Protein Total Protein Albumin Eqixh-6-Sbgkrsqeb PEP Interpretation LDL Cholesterol Direct HDL Cholesterol PTH Intact Urine Creatinine Urine Total Protein Valproic Acid Crossmatch 10/24/18 10/24/18 10/24/18 07:51 11:41 17:38 WBC RBC Hgb Hct MCH RDW Lymph % (Auto) [place] % (Auto) Eos % (Auto) Lymph # [place] # Seg Neutrophils % Seg Neuts % (Manual) Lymphocytes % (Manual) Seg Neutrophils # Lymphocytes # (Manual) APTT D-Dimer Heparin Anti-Xa Level POC ABG pH POC ABG pCO2 POC ABG pO2 Sodium Potassium Chloride Carbon Dioxide BUN Creatinine Glucose POC Glucose 295 H 287 H 163 H Hemoglobin A1c Lactic Acid Calcium Phosphorus Magnesium Alkaline Phosphatase Total Creatine Kinase CK-MB (CK-2) CK-MB (CK-2) Rel Index Troponin T NT-Pro-B Natriuret Pep Serum Total Protein Total Protein Albumin Gbgcz-[id number] PEP Interpretation LDL Cholesterol Direct HDL Cholesterol PTH Intact Urine Creatinine Urine Total Protein Valproic Acid Crossmatch 10/24/18 10/25/18 10/25/18 20:50 05:41 05:41 WBC 12.9 H RBC 2.83 L Hgb 7.9 L Hct 24.7 L MCH RDW 18.1 H Lymph % (Auto) [place] % (Auto) Eos % (Auto) Lymph # [place] # Seg Neutrophils % Seg Neuts % (Manual) Lymphocytes % (Manual) Seg Neutrophils # Lymphocytes # (Manual) APTT D-Dimer Heparin Anti-Xa Level POC ABG pH POC ABG pCO2 POC ABG pO2 Sodium Potassium 5.7 H Chloride Carbon Dioxide BUN 62 H Creatinine 2.2 H Glucose 135 H POC Glucose 117 H Hemoglobin A1c Lactic Acid Calcium Phosphorus Magnesium Alkaline Phosphatase Total Creatine Kinase CK-MB (CK-2) CK-MB (CK-2) Rel Index Troponin T NT-Pro-B Natriuret Pep Serum Total Protein Total Protein Albumin [id number]-6-Vbluayayd PEP Interpretation LDL Cholesterol Direct HDL Cholesterol PTH Intact Urine Creatinine Urine Total Protein Valproic Acid Crossmatch 10/25/18 10/25/18 10/25/18 07:58 11:18 16:46 WBC RBC Hgb Hct MCH RDW Lymph % (Auto) [place] % (Auto) Eos % (Auto) Lymph # [place] # Seg Neutrophils % Seg Neuts % (Manual) Lymphocytes % (Manual) Seg Neutrophils # Lymphocytes # (Manual) APTT D-Dimer Heparin Anti-Xa Level POC ABG pH POC ABG pCO2 POC ABG pO2 Sodium Potassium Chloride Carbon Dioxide BUN Creatinine Glucose POC Glucose 203 H 223 H 199 H Hemoglobin A1c Lactic Acid Calcium Phosphorus Magnesium Alkaline Phosphatase Total Creatine Kinase CK-MB (CK-2) CK-MB (CK-2) Rel Index Troponin T NT-Pro-B Natriuret Pep Serum Total Protein Total Protein Albumin Smhop-3-Nhaqqkcsa PEP Interpretation LDL Cholesterol Direct HDL Cholesterol PTH Intact Urine Creatinine Urine Total Protein Valproic Acid Crossmatch 10/25/18 10/25/18 10/26/18 19:44 22:13 05:31 WBC RBC 2.81 L Hgb 8.1 L Hct 24.7 L MCH RDW 18.3 H Lymph % (Auto) 11.3 L [place] % (Auto) 15.8 H Eos % (Auto) Lymph # [place] # 1.7 H Seg Neutrophils % Seg Neuts % (Manual) Lymphocytes % (Manual) Seg Neutrophils # Lymphocytes # (Manual) APTT D-Dimer Heparin Anti-Xa Level POC ABG pH POC ABG pCO2 POC ABG pO2 Sodium Potassium 5.3 H Chloride Carbon Dioxide BUN Creatinine Glucose POC Glucose 310 H Hemoglobin A1c Lactic Acid Calcium Phosphorus Magnesium Alkaline Phosphatase Total Creatine Kinase CK-MB (CK-2) CK-MB (CK-2) Rel Index Troponin T NT-Pro-B Natriuret Pep Serum Total Protein Total Protein Albumin Fpmer-9-[id number] PEP Interpretation LDL Cholesterol Direct HDL Cholesterol PTH Intact Urine Creatinine Urine Total Protein Valproic Acid Crossmatch 10/26/18 10/26/18 10/26/18 05:31 07:58 12:58 WBC RBC Hgb Hct MCH RDW Lymph % (Auto) [place] % (Auto) Eos % (Auto) Lymph # [place] # Seg Neutrophils % Seg Neuts % (Manual) Lymphocytes % (Manual) Seg Neutrophils # Lymphocytes # (Manual) APTT D-Dimer Heparin Anti-Xa Level POC ABG pH POC ABG pCO2 POC ABG pO2 Sodium Potassium 5.3 H Chloride Carbon Dioxide BUN 68 H Creatinine 2.2 H Glucose 187 H POC Glucose 145 H 263 H Hemoglobin A1c Lactic Acid Calcium Phosphorus Magnesium Alkaline Phosphatase Total Creatine Kinase CK-MB (CK-2) CK-MB (CK-2) Rel Index Troponin T NT-Pro-B Natriuret Pep Serum Total Protein Total Protein Albumin Pxnjp-1-Iiwktsoip PEP Interpretation LDL Cholesterol Direct HDL Cholesterol PTH Intact Urine Creatinine Urine Total Protein Valproic Acid Crossmatch 10/26/18 10/26/18 10/27/18 16:24 21:46 05:14 WBC 12.7 H RBC 2.94 L Hgb 8.2 L Hct 25.5 L MCH RDW 18.3 H Lymph % (Auto) 10.0 L [place] % (Auto) 14.3 H Eos % (Auto) Lymph # [place] # 1.8 H Seg Neutrophils % 73.4 H Seg Neuts % (Manual) Lymphocytes % (Manual) Seg Neutrophils # 9.3 H Lymphocytes # (Manual) APTT D-Dimer Heparin Anti-Xa Level POC ABG pH POC ABG pCO2 POC ABG pO2 Sodium Potassium Chloride Carbon Dioxide BUN Creatinine Glucose POC Glucose 188 H 273 H Hemoglobin A1c Lactic Acid Calcium Phosphorus Magnesium Alkaline Phosphatase Total Creatine Kinase CK-MB (CK-2) CK-MB (CK-2) Rel Index Troponin T NT-Pro-B Natriuret Pep Serum Total Protein Total Protein Albumin Qkbcg-2-Dpugsbopu PEP Interpretation LDL Cholesterol Direct HDL Cholesterol PTH Intact Urine Creatinine Urine Total Protein Valproic Acid Crossmatch 10/27/18 10/27/18 10/27/18 05:14 09:08 11:56 WBC RBC Hgb Hct MCH RDW Lymph % (Auto) [place] % (Auto) Eos % (Auto) Lymph # [place] # Seg Neutrophils % Seg Neuts % (Manual) Lymphocytes % (Manual) Seg Neutrophils # Lymphocytes # (Manual) APTT D-Dimer Heparin Anti-Xa Level POC ABG pH POC ABG pCO2 POC ABG pO2 Sodium 136 L Potassium 5.1 H Chloride 97.7 L Carbon Dioxide BUN 67 H Creatinine 1.7 H Glucose POC Glucose 131 H 169 H Hemoglobin A1c Lactic Acid Calcium Phosphorus Magnesium Alkaline Phosphatase Total Creatine Kinase CK-MB (CK-2) CK-MB (CK-2) Rel Index Troponin T NT-Pro-B Natriuret Pep Serum Total Protein Total Protein Albumin Nnelo-8-[id number] PEP Interpretation LDL Cholesterol Direct HDL Cholesterol PTH Intact Urine Creatinine Urine Total Protein Valproic Acid Crossmatch 10/27/18 10/27/18 10/28/18 16:27 21:53 03:24 WBC RBC 2.82 L Hgb 8.1 L Hct 24.6 L MCH RDW 18.6 H Lymph % (Auto) [place] % (Auto) 13.8 H Eos % (Auto) Lymph # [place] # 1.3 H Seg Neutrophils % Seg Neuts % (Manual) Lymphocytes % (Manual) Seg Neutrophils # Lymphocytes # (Manual) APTT D-Dimer Heparin Anti-Xa Level POC ABG pH POC ABG pCO2 POC ABG pO2 Sodium Potassium Chloride Carbon Dioxide BUN Creatinine Glucose POC Glucose 129 H 118 H Hemoglobin A1c Lactic Acid Calcium Phosphorus Magnesium Alkaline Phosphatase Total Creatine Kinase CK-MB (CK-2) CK-MB (CK-2) Rel Index Troponin T NT-Pro-B Natriuret Pep Serum Total Protein Total Protein Albumin Kcwez-0-Sevvlwkfo PEP Interpretation LDL Cholesterol Direct HDL Cholesterol PTH Intact Urine Creatinine Urine Total Protein Valproic Acid Crossmatch 10/28/18 10/28/18 10/28/18 03:24 08:10 11:59 WBC RBC Hgb Hct MCH RDW Lymph % (Auto) [place] % (Auto) Eos % (Auto) Lymph # [place] # Seg Neutrophils % Seg Neuts % (Manual) Lymphocytes % (Manual) Seg Neutrophils # Lymphocytes # (Manual) APTT D-Dimer Heparin Anti-Xa Level POC ABG pH POC ABG pCO2 POC ABG pO2 Sodium Potassium Chloride Carbon Dioxide BUN 62 H Creatinine Glucose 121 H POC Glucose 115 H 124 H Hemoglobin A1c Lactic Acid Calcium Phosphorus Magnesium Alkaline Phosphatase Total Creatine Kinase CK-MB (CK-2) CK-MB (CK-2) Rel Index Troponin T NT-Pro-B Natriuret Pep Serum Total Protein Total Protein Albumin Qirli-9-[id number] PEP Interpretation LDL Cholesterol Direct HDL Cholesterol PTH Intact Urine Creatinine Urine Total Protein Valproic Acid Crossmatch 10/28/18 10/28/18 10/28/18 17:25 20:07 23:52 WBC RBC Hgb Hct MCH RDW Lymph % (Auto) [place] % (Auto) Eos % (Auto) Lymph # [place] # Seg Neutrophils % Seg Neuts % (Manual) Lymphocytes % (Manual) Seg Neutrophils # Lymphocytes # (Manual) APTT D-Dimer Heparin Anti-Xa Level POC ABG pH POC ABG pCO2 POC ABG pO2 Sodium Potassium Chloride Carbon Dioxide BUN Creatinine Glucose POC Glucose 171 H 111 H 256 H Hemoglobin A1c Lactic Acid Calcium Phosphorus Magnesium Alkaline Phosphatase Total Creatine Kinase CK-MB (CK-2) CK-MB (CK-2) Rel Index Troponin T NT-Pro-B Natriuret Pep Serum Total Protein Total Protein Albumin Mwvur-1-Rhiawbwki PEP Interpretation LDL Cholesterol Direct HDL Cholesterol PTH Intact Urine Creatinine Urine Total Protein Valproic Acid Crossmatch 10/29/18 10/29/18 10/29/18 04:50 07:41 11:00 WBC RBC Hgb Hct MCH RDW Lymph % (Auto) [place] % (Auto) Eos % (Auto) Lymph # [place] # Seg Neutrophils % Seg Neuts % (Manual) Lymphocytes % (Manual) Seg Neutrophils # Lymphocytes # (Manual) APTT D-Dimer Heparin Anti-Xa Level POC ABG pH POC ABG pCO2 POC ABG pO2 Sodium Potassium 5.1 H Chloride Carbon Dioxide BUN 56 H Creatinine Glucose 123 H POC Glucose 131 H 205 H Hemoglobin A1c Lactic Acid Calcium Phosphorus Magnesium Alkaline Phosphatase Total Creatine Kinase CK-MB (CK-2) CK-MB (CK-2) Rel Index Troponin T NT-Pro-B Natriuret Pep Serum Total Protein Total Protein Albumin Bpdav-[id number] PEP Interpretation LDL Cholesterol Direct HDL Cholesterol PTH Intact Urine Creatinine Urine Total Protein Valproic Acid Crossmatch Allied health notes reviewed: nursing
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
[2018-10-29] MEDS: ZAROXOLYN PO SCH (17:32)
--- NOTE | 2018-10-29 22:18 | Progress Note ---
Assessment and Plan s/p ORIF left 2nd finger doing well continue splinting x 2wks, then begin AROM Subjective Date of service: 10/29/18 Principal diagnosis: Severe Sepsis with Shock; Acute encephalopathy; MAXIMO; Diabetes II; CMOP Interval history: no c/o's noted Objective Vital signs: Vital Signs - 12hr 10/29/18 10/29/18 11:42 17:59 Temperature 97.5 F L 97.5 F L Pulse Rate 76 81 Respiratory 18 18 Rate Blood Pressure 163/85 171/93 O2 Sat by Pulse 100 95 Oximetry Narrative Exam: Left hand - post op dressing intact, good capillary refill - Labs CBC & BMP: 10/28/18 03:24 10/29/18 04:50 Labs: Abnormal lab results 10/28/18 10/28/18 10/29/18 Range/Units 20:07 23:52 04:50 Potassium 5.1 H (3.6-5.0) mmol/L BUN 56 H (9-20) mg/dL Glucose 123 H (75-100) mg/dL POC Glucose 111 H 256 H (70-105) 10/29/18 10/29/18 10/29/18 Range/Units 07:41 11:00 20:46 Potassium (3.6-5.0) mmol/L BUN (9-20) mg/dL Glucose (75-100) mg/dL POC Glucose 131 H 205 H 197 H (70-105)
[2018-10-29] MEDS: RisperDAL PO SCH (22:27)
[2018-10-29] MEDS: PRAVACHOL PO SCH (22:27)
[2018-10-30 06:02] LABS: BUN/Creatinine Ratio 37; Blood Urea Nitrogen 48 mg/dL (9-20); Calcium 8.7 mg/dL (8.4-10.2); Hemolysis Index 4
[2018-10-30] MEDS: PEPCID PO SCH (09:26)
[2018-10-30] MEDS: COREG PO SCH (09:26)
[2018-10-30] MEDS: FEOSOL PO SCH (09:26)
[2018-10-30] MEDS: ASPIRIN PO SCH (09:27)
[2018-10-30] MEDS: HumuLIN R SUB-Q SCH ×3 (09:28→20:36)
[2018-10-30] MEDS: SODIUM CHLORIDE FLUSH SYRINGE 10 ML IV SCH (09:29)
[2018-10-30] MEDS: KIONEX PO SCH (09:38)
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
--- NOTE | 2018-10-30 13:00 | Progress Note ---
Assessment and Plan 1. Acute kidney injury: MAXIMO likely Vasomotor / hemodynamic mediated in the setting of hypotension. Patient was started on hemodialysis on 10/11/2018 due to continued decline in the Renal function and hyperkalemia. He was last dialyzed on 10/18/18. Likely CKD stage 3, creatinine level is better / stable. Monitor renal function and [employer] needs. 2. FEN: Volume overload, continue Lasix and Metolazone. S/p multiple sessions of Isolated UF. Volume status is better. Hyperkalemia, Kayexalate daily. Low potassium diet. 3. CHF exacerbation: Improved. 4. Hypotension: BP is better. 5. Anemia: S/p PRBC. Monitor. 6. Left 2nd finger fracture: S/p ORIF. Compliance encouraged. Patient is going to follow with local [facility]. Subjective Date of service: 10/30/18 Principal diagnosis: Severe Sepsis with Shock; Acute encephalopathy; MAXIMO; Diabetes II; CMOP Interval history: Patient was seen and examined at the bedside. Feeling better. Objective - Vital Signs Vital signs: Vital Signs - 12hr 10/30/18 10/30/18 10/30/18 04:31 09:26 11:38 Temperature 99.3 F 98.8 F Pulse Rate 102 H 100 H Respiratory 24 20 Rate Blood Pressure 154/80 166/84 172/83 O2 Sat by Pulse 98 94 Oximetry - General Appearance General appearance: well-developed, well-nourished, appears stated age, other (not in distress) EENT: ATNC, PERRL, hearing intact, vision intact Neck: supple Respiratory: Present: Clear to Ascultation Cardiology: regular, S1S2, no murmurs Gastrointestinal: normoactive bowel sounds, no tenderness, no distended Neurologic: no focal deficit, no asterixis, alert and oriented x3 Musculoskeletal: other (trace LE edema noted, left index finger splint) - Lab 10/28/18 03:24 10/30/18 05:19 Most recent lab results Calcium 8.7 mg/dL (8.4-10.2) 10/30/18 05:19 Phosphorus 4.70 mg/dL (2.5-4.5) H 10/21/18 06:26 Magnesium 2.20 mg/dL (1.7-2.3) 10/21/18 06:26 Urine Creatinine 118.6 mg/dL (0.1-20.0) H 10/10/18 22:30 Urine Sodium 35 mmol/L 10/10/18 22:30 Urine Total Protein 152 mg/dL (5-11.8) H 10/10/18 22:30 Medications & Allergies - Medications Allergies/Adverse Reactions: Allergies No Known Allergies Allergy (Unverified 10/09/18 10:44) Home Medications: Home Medications Medication Instructions Recorded Confirmed Last Taken Type Aspirin [Aspirin TAB] 325 mg PO QDAY #30 tablet 10/30/18 Unknown Rx Carvedilol [Coreg] 6.25 mg PO BID #60 tablet 10/30/[address] [Depakote Dr] 500 mg PO BID #60 10/30/18 10/09/18 Unknown Rx Famotidine [Pepcid] 20 mg PO DAILY #30 tablet 10/30/18 Unknown Rx Ferrous Sulfate [Feosol 325 MG tab] 325 mg PO QDAY #30 tablet 10/30/18 Unknown Rx Furosemide [Lasix TAB] 80 mg PO DAILY@0600 30 Days tablet 10/30/18 Unknown Rx Insulin NPH/Regular [NovoLIN 70/30] 8 unit SUB-Q BIDDIAB units 10/30/18 Unknown Rx Insulin Regular, Human [HumuLIN R] 1 units SUB-Q ACHS PRN #100 units 10/30/18 Unknown Rx Pravastatin [Pravachol] 40 mg PO QHS #30 tablet 10/30/18 Unknown Rx Sodium Polystyrene [Kionex] 30 gm PO DAILY 2 Days oral.liqd 10/30/18 Unknown Rx metOLazone [Zaroxolyn] 5 mg PO DAILY@1730 #30 tablet 10/30/18 Unknown Rx oxyCODONE /ACETAMINOPHEN [Percocet 1 tab PO Q8H PRN #25 tablet 10/30/18 Unknown Rx 5/325 mg] risperiDONE [RisperDAL] 1 mg PO QHS #30 tablet 10/30/18 Unknown Rx Active Medications: Generic Name Dose Route Start Last Admin Trade Name Freq PRN Reason Stop Dose Admin Albumin Human 25 gm 10/11/18 09:35 Alburx 25% (Albumin) IV JUDE PRN Hypotension Aspirin 325 mg 10/10/18 10:00 10/30/18 09:27 Aspirin PO 325 mg QDAY JAMIL Administration Carvedilol 6.25 mg 10/14/18 22:00 10/30/18 09:26 Coreg PO 6.25 mg BID ON LICENSE OF [facility] Administration Dextrose 50 ml 10/10/18 11:03 10/16/18 07:14 D50w (25gm) Syringe IV 50 ml PRN PRN Administration Hypoglycemia Famotidine 20 mg 10/10/18 12:00 10/30/18 09:26 Pepcid PO 20 mg DAILY JAMIL Administration Ferrous Sulfate 325 mg 10/10/18 10:00 10/30/18 09:26 Feosol PO 325 mg QDAY JAMIL Administration Furosemide 80 mg 10/28/18 15:00 10/29/18 05:40 Lasix PO 80 mg DAILY@0600 ON LICENSE OF [facility] Administration Heparin Sodium (Porcine) 5,000 unit 10/11/18 15:00 10/29/18 22:27 Heparin SUB-Q Not Given Q8HR ON LICENSE OF [facility] Hydralazine HCl 20 mg 10/13/18 18:43 10/24/18 01:11 Apresoline IV 20 mg Q4HR PRN Administration Increased Blood Pressure Insulin Human Isoph/Insulin Regular 8 unit 10/24/18 17:00 10/30/18 09:28 Humulin 70/30 SUB-Q 8 unit BIDDIAB ON LICENSE OF [facility] Administration Insulin Human Regular 0 units 10/10/18 11:30 10/30/18 09:28 Humulin R SUB-Q Not Given ACHS ON LICENSE OF [facility] Protocol Magnesium Hydroxide 30 ml 10/17/18 14:28 10/19/18 10:58 Milk Of Magnesia PO 30 ml QDAY PRN Administration Constipation Metolazone 5 mg 10/23/18 22:00 10/29/18 17:32 Zaroxolyn PO 5 mg DAILY@1730 ON LICENSE OF [facility] Administration Morphine Sulfate 1 mg 10/27/18 11:23 10/29/18 04:52 Morphine IV 1 mg Q4H PRN Administration Pain , Moderate Oxycodone/Acetaminophen 1 tab 10/19/18 10:18 10/29/18 17:35 Percocet 5/325 PO 1 tab Q8H PRN Administration Pain, Moderate (4-6) Pravastatin Sodium 40 mg 10/09/18 22:00 10/29/18 22:27 Pravachol PO 40 mg QHS ON LICENSE OF [facility] Administration Risperidone 1 mg 10/09/18 22:00 10/29/18 22:27 Risperdal PO 1 mg QHS JAMIL Administration Sodium Chloride 10 ml 10/09/18 13:00 10/30/18 09:29 Sodium Chloride Flush Syringe 10 Ml IV 10 ml BID JAMIL Administration Sodium Chloride 10 ml 10/09/18 13:00 Sodium Chloride Flush Syringe 10 Ml IV PRN PRN LINE FLUSH Sodium Polystyrene Sulfonate 30 gm 10/29/18 10:00 10/30/18 09:38 Kionex PO 30 gm DAILY JAMIL Administration
[2018-10-30] MEDS: HEPARIN SUB-Q SCH (14:00)
[2018-10-30 16:37] VITALS: BP 171/78
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
[2018-10-30] MEDS: ZAROXOLYN PO SCH (19:10)
--- NOTE | 2018-10-30 19:30 | Progress Note ---
Assessment and Plan atient dischrged before I see the patient. - Patient Problems (1) CHF (congestive heart failure) Status: Acute (2) Chest pain Status: Acute (3) ACS (acute coronary syndrome) Status: Acute (4) ARF (acute renal failure) with tubular necrosis Status: Acute (5) Encephalopathy Status: Acute (6) Pleural effusion, right Status: Acute (7) Pulmonary infiltrates on CXR Status: Acute (8) Acute respiratory failure with hypoxia and hypercapnia Status: Acute (9) Anemia Status: Acute Subjective Date of service: 10/30/18 Principal diagnosis: Severe Sepsis with Shock; Acute encephalopathy; MAXIMO; Diabetes II; CMOP Interval history: Patient dischrged before I see the patient. Objective Vital Signs - 12hr 10/30/18 10/30/18 10/30/18 09:26 11:38 16:34 Temperature 98.8 F 97.6 F Pulse Rate 100 H 90 Respiratory 20 20 Rate Blood Pressure 166/84 172/83 171/78 O2 Sat by Pulse 94 99 Oximetry Effort: normal Extremities: other (Dressing on left hand finger.) Neurologic: pupils equal and round Psychiatric: other CBC and BMP: 10/28/18 03:24 10/30/18 05:19 ABG, PT/INR, D-dimer: ABG POC ABG pH 7.359 (7.35-7.45) 10/15/18 13:21 POC ABG pCO2 48.4 (35-45) H 10/15/18 13:21 POC ABG pO2 77 (80-105) L 10/15/18 13:21 POC ABG HCO3 27.3 10/15/18 13:21 POC ABG Total CO2 29 10/15/18 13:21 POC ABG O2 Sat 95 10/15/18 13:21 PT/INR, D-dimer PT 13.5 Sec. (12.2-14.9) 10/28/18 03:24 INR 0.99 (0.87-1.13) 10/28/18 03:24 D-Dimer 927.57 ng/mlDDU (0-234) H 10/10/18 13:36 Abnormal lab findings: Abnormal Labs 10/09/18 10/09/18 10/09/18 11:22 11:22 11:22 WBC 3.3 L RBC 3.03 L Hgb 8.4 L Hct 25.8 L MCH RDW 18.7 H Lymph % (Auto) [place] % (Auto) 12.1 H Eos % (Auto) 4.6 H Lymph # 0.5 L [place] # Seg Neutrophils % Seg Neuts % (Manual) Lymphocytes % (Manual) Seg Neutrophils # Lymphocytes # (Manual) APTT 42.8 H D-Dimer Heparin Anti-Xa Level POC ABG pH POC ABG pCO2 POC ABG pO2 Sodium Potassium 5.2 H Chloride 108.2 H Carbon Dioxide BUN 49 H Creatinine 1.9 H Glucose 153 H POC Glucose Hemoglobin A1c Lactic Acid Calcium Phosphorus Magnesium Alkaline Phosphatase Total Creatine Kinase 481 H CK-MB (CK-2) 20.5 H CK-MB (CK-2) Rel Index 4.2 H Troponin T 0.153 H* NT-Pro-B Natriuret Pep 2963 H Serum Total Protein Total Protein Albumin Sbtmn-3-Ngudobewr PEP Interpretation LDL Cholesterol Direct 49 L HDL Cholesterol 73 H PTH Intact Urine Creatinine Urine Total Protein Valproic Acid Crossmatch 10/09/18 10/09/18 10/09/18 13:43 14:25 14:25 WBC RBC Hgb 8.2 L Hct 26.2 L MCH RDW Lymph % (Auto) [place] % (Auto) Eos % (Auto) Lymph # [place] # Seg Neutrophils % Seg Neuts % (Manual) Lymphocytes % (Manual) Seg Neutrophils # Lymphocytes # (Manual) APTT 42.4 H D-Dimer Heparin Anti-Xa Level POC ABG pH POC ABG pCO2 POC ABG pO2 Sodium Potassium Chloride Carbon Dioxide BUN Creatinine Glucose POC Glucose 167 H Hemoglobin A1c Lactic Acid Calcium Phosphorus Magnesium Alkaline Phosphatase Total Creatine Kinase CK-MB (CK-2) CK-MB (CK-2) Rel Index Troponin T NT-Pro-B Natriuret Pep Serum Total Protein Total Protein Albumin Uohuo-8-Zylenerts PEP Interpretation LDL Cholesterol Direct HDL Cholesterol PTH Intact Urine Creatinine Urine Total Protein Valproic Acid Crossmatch 10/09/18 10/09/18 10/09/18 17:28 20:56 21:23 WBC RBC Hgb Hct MCH RDW Lymph % (Auto) [place] % (Auto) Eos % (Auto) Lymph # [place] # Seg Neutrophils % Seg Neuts % (Manual) Lymphocytes % (Manual) Seg Neutrophils # Lymphocytes # (Manual) APTT D-Dimer Heparin Anti-Xa Level 0.28 L POC ABG pH POC ABG pCO2 POC ABG pO2 Sodium Potassium Chloride Carbon Dioxide BUN Creatinine Glucose POC Glucose Hemoglobin A1c Lactic Acid Calcium Phosphorus Magnesium Alkaline Phosphatase Total Creatine Kinase CK-MB (CK-2) CK-MB (CK-2) Rel Index Troponin T 0.136 H* 0.139 H* NT-Pro-B Natriuret Pep Serum Total Protein Total Protein Albumin Olcvu-1-Ckzvyrkyo PEP Interpretation LDL Cholesterol Direct HDL Cholesterol PTH Intact Urine Creatinine Urine Total Protein Valproic Acid Crossmatch 10/10/18 10/10/18 10/10/18 00:10 05:00 05:00 WBC 3.3 L RBC 2.99 L Hgb 8.2 L Hct 25.9 L MCH 27 L RDW 19.2 H Lymph % (Auto) [place] % (Auto) 13.2 H Eos % (Auto) 5.8 H Lymph # 0.5 L [place] # Seg Neutrophils % Seg Neuts % (Manual) Lymphocytes % (Manual) Seg Neutrophils # Lymphocytes # (Manual) APTT D-Dimer Heparin Anti-Xa Level POC ABG pH POC ABG pCO2 POC ABG pO2 Sodium Potassium 5.6 H Chloride 110.8 H Carbon Dioxide BUN 50 H Creatinine 2.2 H Glucose 52 L POC Glucose 60 L Hemoglobin A1c Lactic Acid Calcium 8.1 L Phosphorus Magnesium Alkaline Phosphatase Total Creatine Kinase CK-MB (CK-2) CK-MB (CK-2) Rel Index Troponin T NT-Pro-B Natriuret Pep Serum Total Protein Total Protein Albumin Mcwkz-0-Omygfzafz PEP Interpretation LDL Cholesterol Direct HDL Cholesterol PTH Intact Urine Creatinine Urine Total Protein Valproic Acid Crossmatch 10/10/18 10/10/18 10/10/18 05:00 06:11 11:30 WBC RBC Hgb Hct MCH RDW Lymph % (Auto) [place] % (Auto) Eos % (Auto) Lymph # [place] # Seg Neutrophils % Seg Neuts % (Manual) Lymphocytes % (Manual) Seg Neutrophils # Lymphocytes # (Manual) APTT D-Dimer Heparin Anti-Xa Level POC ABG pH POC ABG pCO2 POC ABG pO2 Sodium Potassium Chloride Carbon Dioxide BUN Creatinine Glucose POC Glucose 57 L 48 L Hemoglobin A1c 8.2 H Lactic Acid Calcium Phosphorus Magnesium Alkaline Phosphatase Total Creatine Kinase CK-MB (CK-2) CK-MB (CK-2) Rel Index Troponin T NT-Pro-B Natriuret Pep Serum Total Protein Total Protein Albumin Ufooj-1-Fscgtckef PEP Interpretation LDL Cholesterol Direct HDL Cholesterol PTH Intact Urine Creatinine Urine Total Protein Valproic Acid Crossmatch 10/10/18 10/10/18 10/10/18 12:22 13:36 13:36 WBC RBC Hgb Hct MCH RDW Lymph % (Auto) [place] % (Auto) Eos % (Auto) Lymph # [place] # Seg Neutrophils % Seg Neuts % (Manual) Lymphocytes % (Manual) Seg Neutrophils # Lymphocytes # (Manual) APTT D-Dimer 927.57 H Heparin Anti-Xa Level POC ABG pH 7.286 L POC ABG pCO2 47.3 H POC ABG pO2 65 L Sodium Potassium Chloride Carbon Dioxide BUN Creatinine Glucose POC Glucose Hemoglobin A1c Lactic Acid 0.60 L Calcium Phosphorus Magnesium Alkaline Phosphatase Total Creatine Kinase CK-MB (CK-2) CK-MB (CK-2) Rel Index Troponin T NT-Pro-B Natriuret Pep Serum Total Protein Total Protein Albumin Hscms-8-Cktzfamph PEP Interpretation LDL Cholesterol Direct HDL Cholesterol PTH Intact Urine Creatinine Urine Total Protein Valproic Acid Crossmatch 10/10/18 10/10/18 10/10/18 16:42 21:12 22:30 WBC RBC Hgb Hct MCH RDW Lymph % (Auto) [place] % (Auto) Eos % (Auto) Lymph # [place] # Seg Neutrophils % Seg Neuts % (Manual) Lymphocytes % (Manual) Seg Neutrophils # Lymphocytes # (Manual) APTT D-Dimer Heparin Anti-Xa Level POC ABG pH POC ABG pCO2 POC ABG pO2 Sodium Potassium Chloride Carbon Dioxide BUN Creatinine Glucose POC Glucose 122 H 119 H Hemoglobin A1c Lactic Acid Calcium Phosphorus Magnesium Alkaline Phosphatase Total Creatine Kinase CK-MB (CK-2) CK-MB (CK-2) Rel Index Troponin T NT-Pro-B Natriuret Pep Serum Total Protein Total Protein Albumin Kwiey-7-Vnwahmbsl PEP Interpretation LDL Cholesterol Direct HDL Cholesterol PTH Intact Urine Creatinine 118.6 H Urine Total Protein 152 H Valproic Acid Crossmatch 10/11/18 10/11/18 10/11/18 04:31 04:31 13:15 WBC RBC Hgb 8.7 L Hct 27.9 L MCH RDW Lymph % (Auto) [place] % (Auto) Eos % (Auto) Lymph # [place] # Seg Neutrophils % Seg Neuts % (Manual) Lymphocytes % (Manual) Seg Neutrophils # Lymphocytes # (Manual) APTT D-Dimer Heparin Anti-Xa Level POC ABG pH POC ABG pCO2 POC ABG pO2 Sodium Potassium 6.6 H* 6.4 H* Chloride Carbon Dioxide BUN 55 H Creatinine 2.9 H Glucose POC Glucose Hemoglobin A1c Lactic Acid Calcium 7.6 L Phosphorus Magnesium Alkaline Phosphatase Total Creatine Kinase CK-MB (CK-2) CK-MB (CK-2) Rel Index Troponin T NT-Pro-B Natriuret Pep Serum Total Protein Total Protein Albumin Hlysm-3-Yfqmenwrm PEP Interpretation LDL Cholesterol Direct HDL Cholesterol PTH Intact Urine Creatinine Urine Total Protein Valproic Acid Crossmatch 10/11/18 10/11/18 10/12/18 20:45 22:37 04:25 WBC RBC Hgb Hct MCH RDW Lymph % (Auto) [place] % (Auto) Eos % (Auto) Lymph # [place] # Seg Neutrophils % Seg Neuts % (Manual) Lymphocytes % (Manual) Seg Neutrophils # Lymphocytes # (Manual) APTT D-Dimer Heparin Anti-Xa Level POC ABG pH POC ABG pCO2 POC ABG pO2 Sodium Potassium Chloride Carbon Dioxide BUN 37 H 38 H Creatinine 2.4 H 2.3 H Glucose POC Glucose 117 H Hemoglobin A1c Lactic Acid Calcium 7.5 L 7.6 L Phosphorus Magnesium Alkaline Phosphatase 261 H Total Creatine Kinase CK-MB (CK-2) CK-MB (CK-2) Rel Index Troponin T NT-Pro-B Natriuret Pep Serum Total Protein Total Protein 6.2 L Albumin 3.0 L Ykfxq-1-Mbpzivkzb PEP Interpretation LDL Cholesterol Direct HDL Cholesterol PTH Intact Urine Creatinine Urine Total Protein Valproic Acid Crossmatch 10/12/18 10/12/18 10/13/18 10:02 21:33 03:28 WBC RBC Hgb 7.6 L 7.7 L Hct 24.1 L 23.8 L MCH RDW Lymph % (Auto) [place] % (Auto) Eos % (Auto) Lymph # [place] # Seg Neutrophils % Seg Neuts % (Manual) Lymphocytes % (Manual) Seg Neutrophils # Lymphocytes # (Manual) APTT D-Dimer Heparin Anti-Xa Level POC ABG pH POC ABG pCO2 POC ABG pO2 Sodium Potassium Chloride Carbon Dioxide BUN Creatinine Glucose POC Glucose 109 H Hemoglobin A1c Lactic Acid Calcium Phosphorus Magnesium Alkaline Phosphatase Total Creatine Kinase CK-MB (CK-2) CK-MB (CK-2) Rel Index Troponin T NT-Pro-B Natriuret Pep Serum Total Protein Total Protein Albumin Qnlsv-8-Fizzvfjyf PEP Interpretation LDL Cholesterol Direct HDL Cholesterol PTH Intact Urine Creatinine Urine Total Protein Valproic Acid Crossmatch 10/13/18 10/13/18 10/13/18 03:28 08:27 15:04 WBC RBC Hgb Hct MCH RDW Lymph % (Auto) [place] % (Auto) Eos % (Auto) Lymph # [place] # Seg Neutrophils % Seg Neuts % (Manual) Lymphocytes % (Manual) Seg Neutrophils # Lymphocytes # (Manual) APTT D-Dimer Heparin Anti-Xa Level POC ABG pH POC ABG pCO2 POC ABG pO2 Sodium Potassium Chloride Carbon Dioxide BUN 38 H Creatinine 1.9 H Glucose POC Glucose 136 H 160 H Hemoglobin A1c Lactic Acid Calcium 8.3 L Phosphorus Magnesium Alkaline Phosphatase Total Creatine Kinase CK-MB (CK-2) CK-MB (CK-2) Rel Index Troponin T NT-Pro-B Natriuret Pep Serum Total Protein Total Protein Albumin Lwrnq-9-Mlmxpvlrc PEP Interpretation LDL Cholesterol Direct HDL Cholesterol PTH Intact Urine Creatinine Urine Total Protein Valproic Acid Crossmatch 10/13/18 10/13/18 10/14/18 16:53 23:06 06:06 WBC RBC Hgb Hct MCH RDW Lymph % (Auto) [place] % (Auto) Eos % (Auto) Lymph # [place] # Seg Neutrophils % Seg Neuts % (Manual) Lymphocytes % (Manual) Seg Neutrophils # Lymphocytes # (Manual) APTT D-Dimer Heparin Anti-Xa Level POC ABG pH POC ABG pCO2 POC ABG pO2 Sodium Potassium Chloride 107.7 H Carbon Dioxide BUN 39 H Creatinine 1.8 H Glucose 116 H POC Glucose 161 H 213 H Hemoglobin A1c Lactic Acid Calcium Phosphorus Magnesium 2.40 H Alkaline Phosphatase Total Creatine Kinase CK-MB (CK-2) CK-MB (CK-2) Rel Index Troponin T NT-Pro-B Natriuret Pep Serum Total Protein Total Protein Albumin Awyqg-4-Jiujlyzip PEP Interpretation LDL Cholesterol Direct HDL Cholesterol PTH Intact Urine Creatinine Urine Total Protein Valproic Acid Crossmatch 10/14/18 10/14/18 10/14/18 06:34 11:01 13:50 WBC RBC Hgb 7.8 L Hct 24.8 L MCH RDW Lymph % (Auto) [place] % (Auto) Eos % (Auto) Lymph # [place] # Seg Neutrophils % Seg Neuts % (Manual) Lymphocytes % (Manual) Seg Neutrophils # Lymphocytes # (Manual) APTT D-Dimer Heparin Anti-Xa Level POC ABG pH POC ABG pCO2 POC ABG pO2 Sodium Potassium Chloride Carbon Dioxide BUN Creatinine Glucose POC Glucose 118 H 67 L Hemoglobin A1c Lactic Acid Calcium Phosphorus Magnesium Alkaline Phosphatase Total Creatine Kinase CK-MB (CK-2) CK-MB (CK-2) Rel Index Troponin T NT-Pro-B Natriuret Pep Serum Total Protein Total Protein Albumin Fyujb-4-Nlmmmuxpx PEP Interpretation LDL Cholesterol Direct HDL Cholesterol PTH Intact Urine Creatinine Urine Total Protein Valproic Acid Crossmatch 10/14/18 10/15/18 10/15/18 21:37 05:39 05:39 WBC RBC Hgb 7.6 L Hct 23.5 L MCH RDW Lymph % (Auto) [place] % (Auto) Eos % (Auto) Lymph # [place] # Seg Neutrophils % Seg Neuts % (Manual) Lymphocytes % (Manual) Seg Neutrophils # Lymphocytes # (Manual) APTT D-Dimer Heparin Anti-Xa Level POC ABG pH POC ABG pCO2 POC ABG pO2 Sodium Potassium Chloride Carbon Dioxide BUN Creatinine Glucose POC Glucose 125 H Hemoglobin A1c Lactic Acid Calcium Phosphorus Magnesium Alkaline Phosphatase Total Creatine Kinase CK-MB (CK-2) CK-MB (CK-2) Rel Index Troponin T NT-Pro-B Natriuret Pep Serum Total Protein 5.6 L Total Protein Albumin 2.5 L Bytld-5-Fuiihobwr 0.4 H PEP Interpretation see below H LDL Cholesterol Direct HDL Cholesterol PTH Intact Urine Creatinine Urine Total Protein Valproic Acid Crossmatch 10/15/18 10/15/18 10/15/18 05:39 06:27 07:48 WBC RBC Hgb Hct MCH RDW Lymph % (Auto) [place] % (Auto) Eos % (Auto) Lymph # [place] # Seg Neutrophils % Seg Neuts % (Manual) Lymphocytes % (Manual) Seg Neutrophils # Lymphocytes # (Manual) APTT D-Dimer Heparin Anti-Xa Level POC ABG pH POC ABG pCO2 POC ABG pO2 Sodium Potassium Chloride Carbon Dioxide BUN 45 H Creatinine 2.1 H Glucose 59 L POC Glucose 46 L 65 L Hemoglobin A1c Lactic Acid Calcium 8.3 L Phosphorus Magnesium Alkaline Phosphatase Total Creatine Kinase CK-MB (CK-2) CK-MB (CK-2) Rel Index Troponin T NT-Pro-B Natriuret Pep Serum Total Protein Total Protein Albumin Yktfq-4-Giyrlbwqe PEP Interpretation LDL Cholesterol Direct HDL Cholesterol PTH Intact Urine Creatinine Urine Total Protein Valproic Acid Crossmatch 10/15/18 10/15/18 10/15/18 13:21 13:24 21:23 WBC RBC Hgb Hct MCH RDW Lymph % (Auto) [place] % (Auto) Eos % (Auto) Lymph # [place] # Seg Neutrophils % Seg Neuts % (Manual) Lymphocytes % (Manual) Seg Neutrophils # Lymphocytes # (Manual) APTT D-Dimer Heparin Anti-Xa Level POC ABG pH POC ABG pCO2 48.4 H POC ABG pO2 77 L Sodium Potassium Chloride Carbon Dioxide BUN Creatinine Glucose POC Glucose 106 H 160 H Hemoglobin A1c Lactic Acid Calcium Phosphorus Magnesium Alkaline Phosphatase Total Creatine Kinase CK-MB (CK-2) CK-MB (CK-2) Rel Index Troponin T NT-Pro-B Natriuret Pep Serum Total Protein Total Protein Albumin Eoxtd-1-Lqzfwwxby PEP Interpretation LDL Cholesterol Direct HDL Cholesterol PTH Intact Urine Creatinine Urine Total Protein Valproic Acid Crossmatch 10/16/18 10/16/18 10/16/18 06:25 06:49 21:42 WBC RBC Hgb Hct MCH RDW Lymph % (Auto) [place] % (Auto) Eos % (Auto) Lymph # [place] # Seg Neutrophils % Seg Neuts % (Manual) Lymphocytes % (Manual) Seg Neutrophils # Lymphocytes # (Manual) APTT D-Dimer Heparin Anti-Xa Level POC ABG pH POC ABG pCO2 POC ABG pO2 Sodium Potassium Chloride 107.7 H Carbon Dioxide BUN 53 H Creatinine 2.2 H Glucose 61 L POC Glucose 51 L 153 H Hemoglobin A1c Lactic Acid Calcium Phosphorus Magnesium Alkaline Phosphatase Total Creatine Kinase CK-MB (CK-2) CK-MB (CK-2) Rel Index Troponin T NT-Pro-B Natriuret Pep Serum Total Protein Total Protein Albumin Acbib-6-Cteulltzh PEP Interpretation LDL Cholesterol Direct HDL Cholesterol PTH Intact Urine Creatinine Urine Total Protein Valproic Acid Crossmatch 10/17/18 10/17/18 10/17/18 05:22 05:22 05:22 WBC RBC Hgb 7.6 L Hct 23.1 L MCH RDW Lymph % (Auto) [place] % (Auto) Eos % (Auto) Lymph # [place] # Seg Neutrophils % Seg Neuts % (Manual) Lymphocytes % (Manual) Seg Neutrophils # Lymphocytes # (Manual) APTT D-Dimer Heparin Anti-Xa Level POC ABG pH POC ABG pCO2 POC ABG pO2 Sodium Potassium Chloride Carbon Dioxide BUN 59 H Creatinine 2.2 H Glucose 111 H POC Glucose Hemoglobin A1c Lactic Acid Calcium Phosphorus Magnesium Alkaline Phosphatase Total Creatine Kinase CK-MB (CK-2) CK-MB (CK-2) Rel Index Troponin T NT-Pro-B Natriuret Pep Serum Total Protein Total Protein Albumin Lsngl-5-Lzqkqnjop PEP Interpretation LDL Cholesterol Direct HDL Cholesterol PTH Intact 152.8 H Urine Creatinine Urine Total Protein Valproic Acid Crossmatch 10/17/18 10/17/18 10/18/18 12:17 21:32 06:36 WBC RBC Hgb Hct MCH RDW Lymph % (Auto) [place] % (Auto) Eos % (Auto) Lymph # [place] # Seg Neutrophils % Seg Neuts % (Manual) Lymphocytes % (Manual) Seg Neutrophils # Lymphocytes # (Manual) APTT D-Dimer Heparin Anti-Xa Level POC ABG pH POC ABG pCO2 POC ABG pO2 Sodium Potassium Chloride Carbon Dioxide BUN Creatinine Glucose POC Glucose 130 H 402 H 217 H Hemoglobin A1c Lactic Acid Calcium Phosphorus Magnesium Alkaline Phosphatase Total Creatine Kinase CK-MB (CK-2) CK-MB (CK-2) Rel Index Troponin T NT-Pro-B Natriuret Pep Serum Total Protein Total Protein Albumin Pnjbn-4-Gdzstdsnc PEP Interpretation LDL Cholesterol Direct HDL Cholesterol PTH Intact Urine Creatinine Urine Total Protein Valproic Acid Crossmatch 10/18/18 10/18/18 10/18/18 08:19 12:24 18:30 WBC RBC Hgb Hct MCH RDW Lymph % (Auto) [place] % (Auto) Eos % (Auto) Lymph # [place] # Seg Neutrophils % Seg Neuts % (Manual) Lymphocytes % (Manual) Seg Neutrophils # Lymphocytes # (Manual) APTT D-Dimer Heparin Anti-Xa Level POC ABG pH POC ABG pCO2 POC ABG pO2 Sodium Potassium 5.6 H Chloride 107.3 H Carbon Dioxide BUN 62 H Creatinine 2.3 H Glucose 201 H POC Glucose 159 H 136 H Hemoglobin A1c Lactic Acid Calcium Phosphorus Magnesium Alkaline Phosphatase Total Creatine Kinase CK-MB (CK-2) CK-MB (CK-2) Rel Index Troponin T NT-Pro-B Natriuret Pep Serum Total Protein Total Protein Albumin Wnzsf-3-Iavbteidz PEP Interpretation LDL Cholesterol Direct HDL Cholesterol PTH Intact Urine Creatinine Urine Total Protein Valproic Acid Crossmatch 10/19/18 10/19/18 10/19/18 04:53 04:53 11:33 WBC RBC 2.74 L Hgb 7.5 L Hct 23.0 L MCH 27 L RDW 17.9 H Lymph % (Auto) 11.3 L [place] % (Auto) 14.5 H Eos % (Auto) Lymph # 1.0 L [place] # 1.2 H Seg Neutrophils % 71.4 H Seg Neuts % (Manual) Lymphocytes % (Manual) Seg Neutrophils # Lymphocytes # (Manual) APTT D-Dimer Heparin Anti-Xa Level POC ABG pH POC ABG pCO2 POC ABG pO2 Sodium Potassium Chloride Carbon Dioxide 33 H BUN 33 H Creatinine Glucose 52 L POC Glucose 148 H Hemoglobin A1c Lactic Acid Calcium Phosphorus Magnesium Alkaline Phosphatase Total Creatine Kinase CK-MB (CK-2) CK-MB (CK-2) Rel Index Troponin T NT-Pro-B Natriuret Pep Serum Total Protein Total Protein Albumin Ntcxw-4-Ighockmrj PEP Interpretation LDL Cholesterol Direct HDL Cholesterol PTH Intact Urine Creatinine Urine Total Protein Valproic Acid Crossmatch 10/19/18 10/20/18 10/20/18 21:10 05:30 18:14 WBC RBC Hgb Hct MCH RDW Lymph % (Auto) [place] % (Auto) Eos % (Auto) Lymph # [place] # Seg Neutrophils % Seg Neuts % (Manual) Lymphocytes % (Manual) Seg Neutrophils # Lymphocytes # (Manual) APTT D-Dimer Heparin Anti-Xa Level POC ABG pH POC ABG pCO2 POC ABG pO2 Sodium Potassium 5.1 H Chloride Carbon Dioxide 31 H BUN 40 H Creatinine 1.6 H Glucose POC Glucose 132 H 114 H Hemoglobin A1c Lactic Acid Calcium Phosphorus Magnesium Alkaline Phosphatase Total Creatine Kinase CK-MB (CK-2) CK-MB (CK-2) Rel Index Troponin T NT-Pro-B Natriuret Pep Serum Total Protein Total Protein Albumin Rmgaz-2-Yrkjxfdki PEP Interpretation LDL Cholesterol Direct HDL Cholesterol PTH Intact Urine Creatinine Urine Total Protein Valproic Acid Crossmatch 10/20/18 10/21/18 10/21/18 20:57 06:26 06:26 WBC RBC 2.76 L Hgb 7.7 L Hct 23.1 L MCH RDW 18.2 H Lymph % (Auto) [place] % (Auto) Eos % (Auto) Lymph # [place] # Seg Neutrophils % Seg Neuts % (Manual) 79.0 H Lymphocytes % (Manual) 9.0 L Seg Neutrophils # Lymphocytes # (Manual) 0.7 L APTT D-Dimer Heparin Anti-Xa Level POC ABG pH POC ABG pCO2 POC ABG pO2 Sodium 146 H Potassium Chloride Carbon Dioxide 31 H BUN 41 H Creatinine 1.6 H Glucose POC Glucose 196 H Hemoglobin A1c Lactic Acid Calcium Phosphorus 4.70 H Magnesium Alkaline Phosphatase Total Creatine Kinase CK-MB (CK-2) CK-MB (CK-2) Rel Index Troponin T NT-Pro-B Natriuret Pep Serum Total Protein Total Protein Albumin Venti-8-Nhmocffvq PEP Interpretation LDL Cholesterol Direct HDL Cholesterol PTH Intact Urine Creatinine Urine Total Protein Valproic Acid Crossmatch 10/21/18 10/21/18 10/21/18 06:26 08:52 17:00 WBC RBC Hgb Hct MCH RDW Lymph % (Auto) [place] % (Auto) Eos % (Auto) Lymph # [place] # Seg Neutrophils % Seg Neuts % (Manual) Lymphocytes % (Manual) Seg Neutrophils # Lymphocytes # (Manual) APTT D-Dimer Heparin Anti-Xa Level POC ABG pH POC ABG pCO2 POC ABG pO2 Sodium Potassium Chloride Carbon Dioxide BUN Creatinine Glucose POC Glucose 172 H Hemoglobin A1c Lactic Acid Calcium Phosphorus Magnesium Alkaline Phosphatase 258 H Total Creatine Kinase CK-MB (CK-2) CK-MB (CK-2) Rel Index Troponin T NT-Pro-B Natriuret Pep Serum Total Protein Total Protein Albumin Bxpky-9-Dtdrhyyoi PEP Interpretation LDL Cholesterol Direct HDL Cholesterol PTH Intact Urine Creatinine Urine Total Protein Valproic Acid 46.4 L Crossmatch 10/21/18 10/22/18 10/22/18 23:37 05:25 05:25 WBC RBC 2.17 L Hgb 6.1 L Hct 20.7 L MCH RDW 18.2 H Lymph % (Auto) [place] % (Auto) 14.8 H Eos % (Auto) Lymph # [place] # 1.2 H Seg Neutrophils % Seg Neuts % (Manual) Lymphocytes % (Manual) Seg Neutrophils # Lymphocytes # (Manual) APTT D-Dimer Heparin Anti-Xa Level POC ABG pH POC ABG pCO2 POC ABG pO2 Sodium Potassium Chloride Carbon Dioxide 31 H BUN 45 H Creatinine 1.7 H Glucose 143 H POC Glucose 186 H Hemoglobin A1c Lactic Acid Calcium 8.3 L Phosphorus Magnesium Alkaline Phosphatase Total Creatine Kinase CK-MB (CK-2) CK-MB (CK-2) Rel Index Troponin T NT-Pro-B Natriuret Pep Serum Total Protein Total Protein Albumin Auyge-4-Etekoweaw PEP Interpretation LDL Cholesterol Direct HDL Cholesterol PTH Intact Urine Creatinine Urine Total Protein Valproic Acid Crossmatch 10/22/18 10/22/18 10/22/18 10:31 12:27 17:13 WBC RBC Hgb Hct MCH RDW Lymph % (Auto) [place] % (Auto) Eos % (Auto) Lymph # [place] # Seg Neutrophils % Seg Neuts % (Manual) Lymphocytes % (Manual) Seg Neutrophils # Lymphocytes # (Manual) APTT D-Dimer Heparin Anti-Xa Level POC ABG pH POC ABG pCO2 POC ABG pO2 Sodium Potassium Chloride Carbon Dioxide BUN Creatinine Glucose POC Glucose 198 H 137 H Hemoglobin A1c Lactic Acid Calcium Phosphorus Magnesium Alkaline Phosphatase Total Creatine Kinase CK-MB (CK-2) CK-MB (CK-2) Rel Index Troponin T NT-Pro-B Natriuret Pep Serum Total Protein Total Protein Albumin Zrpjh-1-Zgckkvqhi PEP Interpretation LDL Cholesterol Direct HDL Cholesterol PTH Intact Urine Creatinine Urine Total Protein Valproic Acid Crossmatch See Detail 10/22/18 10/23/18 10/23/18 20:35 06:00 09:07 WBC 11.1 H RBC 2.99 L Hgb 8.4 L Hct 25.7 L MCH RDW 17.9 H Lymph % (Auto) [place] % (Auto) Eos % (Auto) Lymph # [place] # Seg Neutrophils % Seg Neuts % (Manual) Lymphocytes % (Manual) Seg Neutrophils # Lymphocytes # (Manual) APTT D-Dimer Heparin Anti-Xa Level POC ABG pH POC ABG pCO2 POC ABG pO2 Sodium Potassium Chloride Carbon Dioxide BUN Creatinine Glucose POC Glucose 196 H 246 H Hemoglobin A1c Lactic Acid Calcium Phosphorus Magnesium Alkaline Phosphatase Total Creatine Kinase CK-MB (CK-2) CK-MB (CK-2) Rel Index Troponin T NT-Pro-B Natriuret Pep Serum Total Protein Total Protein Albumin Dfeuc-7-Qcdojqkag PEP Interpretation LDL Cholesterol Direct HDL Cholesterol PTH Intact Urine Creatinine Urine Total Protein Valproic Acid Crossmatch 10/23/18 10/23/18 10/23/18 09:07 11:37 17:16 WBC RBC Hgb Hct MCH RDW Lymph % (Auto) [place] % (Auto) Eos % (Auto) Lymph # [place] # Seg Neutrophils % Seg Neuts % (Manual) Lymphocytes % (Manual) Seg Neutrophils # Lymphocytes # (Manual) APTT D-Dimer Heparin Anti-Xa Level POC ABG pH POC ABG pCO2 POC ABG pO2 Sodium Potassium 5.2 H Chloride Carbon Dioxide BUN 48 H Creatinine 2.4 H Glucose 247 H POC Glucose 222 H 196 H Hemoglobin A1c Lactic Acid Calcium Phosphorus Magnesium Alkaline Phosphatase Total Creatine Kinase CK-MB (CK-2) CK-MB (CK-2) Rel Index Troponin T NT-Pro-B Natriuret Pep Serum Total Protein Total Protein Albumin [id number] PEP Interpretation LDL Cholesterol Direct HDL Cholesterol PTH Intact Urine Creatinine Urine Total Protein Valproic Acid Crossmatch 10/23/18 10/24/18 10/24/18 21:39 04:13 04:13 WBC RBC 2.69 L Hgb 7.7 L Hct 23.4 L MCH RDW 18.3 H Lymph % (Auto) [place] % (Auto) Eos % (Auto) Lymph # [place] # Seg Neutrophils % Seg Neuts % (Manual) 77.0 H Lymphocytes % (Manual) 12.0 L Seg Neutrophils # Lymphocytes # (Manual) APTT D-Dimer Heparin Anti-Xa Level POC ABG pH POC ABG pCO2 POC ABG pO2 Sodium Potassium 5.1 H Chloride Carbon Dioxide BUN 53 H Creatinine 2.0 H Glucose 224 H POC Glucose 234 H Hemoglobin A1c Lactic Acid Calcium 8.3 L Phosphorus Magnesium Alkaline Phosphatase Total Creatine Kinase CK-MB (CK-2) CK-MB (CK-2) Rel Index Troponin T NT-Pro-B Natriuret Pep Serum Total Protein Total Protein Albumin Ioyse-1-Uwrvcfrwa PEP Interpretation LDL Cholesterol Direct HDL Cholesterol PTH Intact Urine Creatinine Urine Total Protein Valproic Acid Crossmatch 10/24/18 10/24/18 10/24/18 07:51 11:41 17:38 WBC RBC Hgb Hct MCH RDW Lymph % (Auto) [place] % (Auto) Eos % (Auto) Lymph # [place] # Seg Neutrophils % Seg Neuts % (Manual) Lymphocytes % (Manual) Seg Neutrophils # Lymphocytes # (Manual) APTT D-Dimer Heparin Anti-Xa Level POC ABG pH POC ABG pCO2 POC ABG pO2 Sodium Potassium Chloride Carbon Dioxide BUN Creatinine Glucose POC Glucose 295 H 287 H 163 H Hemoglobin A1c Lactic Acid Calcium Phosphorus Magnesium Alkaline Phosphatase Total Creatine Kinase CK-MB (CK-2) CK-MB (CK-2) Rel Index Troponin T NT-Pro-B Natriuret Pep Serum Total Protein Total Protein Albumin Kduiy-3-Pbpbvobtu PEP Interpretation LDL Cholesterol Direct HDL Cholesterol PTH Intact Urine Creatinine Urine Total Protein Valproic Acid Crossmatch 10/24/18 10/25/18 10/25/18 20:50 05:41 05:41 WBC 12.9 H RBC 2.83 L Hgb 7.9 L Hct 24.7 L MCH RDW 18.1 H Lymph % (Auto) [place] % (Auto) Eos % (Auto) Lymph # [place] # Seg Neutrophils % Seg Neuts % (Manual) Lymphocytes % (Manual) Seg Neutrophils # Lymphocytes # (Manual) APTT D-Dimer Heparin Anti-Xa Level POC ABG pH POC ABG pCO2 POC ABG pO2 Sodium Potassium 5.7 H Chloride Carbon Dioxide BUN 62 H Creatinine 2.2 H Glucose 135 H POC Glucose 117 H Hemoglobin A1c Lactic Acid Calcium Phosphorus Magnesium Alkaline Phosphatase Total Creatine Kinase CK-MB (CK-2) CK-MB (CK-2) Rel Index Troponin T NT-Pro-B Natriuret Pep Serum Total Protein Total Protein Albumin Wjniy-8-Yrsqgwfkj PEP Interpretation LDL Cholesterol Direct HDL Cholesterol PTH Intact Urine Creatinine Urine Total Protein Valproic Acid Crossmatch 10/25/18 10/25/18 10/25/18 07:58 11:18 16:46 WBC RBC Hgb Hct MCH RDW Lymph % (Auto) [place] % (Auto) Eos % (Auto) Lymph # [place] # Seg Neutrophils % Seg Neuts % (Manual) Lymphocytes % (Manual) Seg Neutrophils # Lymphocytes # (Manual) APTT D-Dimer Heparin Anti-Xa Level POC ABG pH POC ABG pCO2 POC ABG pO2 Sodium Potassium Chloride Carbon Dioxide BUN Creatinine Glucose POC Glucose 203 H 223 H 199 H Hemoglobin A1c Lactic Acid Calcium Phosphorus Magnesium Alkaline Phosphatase Total Creatine Kinase CK-MB (CK-2) CK-MB (CK-2) Rel Index Troponin T NT-Pro-B Natriuret Pep Serum Total Protein Total Protein Albumin Qpwrx-5-Pqyrxmpcz PEP Interpretation LDL Cholesterol Direct HDL Cholesterol PTH Intact Urine Creatinine Urine Total Protein Valproic Acid Crossmatch 10/25/18 10/25/18 10/26/18 19:44 22:13 05:31 WBC RBC 2.81 L Hgb 8.1 L Hct 24.7 L MCH RDW 18.3 H Lymph % (Auto) 11.3 L [place] % (Auto) 15.8 H Eos % (Auto) Lymph # [place] # 1.7 H Seg Neutrophils % Seg Neuts % (Manual) Lymphocytes % (Manual) Seg Neutrophils # Lymphocytes # (Manual) APTT D-Dimer Heparin Anti-Xa Level POC ABG pH POC ABG pCO2 POC ABG pO2 Sodium Potassium 5.3 H Chloride Carbon Dioxide BUN Creatinine Glucose POC Glucose 310 H Hemoglobin A1c Lactic Acid Calcium Phosphorus Magnesium Alkaline Phosphatase Total Creatine Kinase CK-MB (CK-2) CK-MB (CK-2) Rel Index Troponin T NT-Pro-B Natriuret Pep Serum Total Protein Total Protein Albumin Wkowb-9-Nvhdjsifl PEP Interpretation LDL Cholesterol Direct HDL Cholesterol PTH Intact Urine Creatinine Urine Total Protein Valproic Acid Crossmatch 10/26/18 10/26/18 10/26/18 05:31 07:58 12:58 WBC RBC Hgb Hct MCH RDW Lymph % (Auto) [place] % (Auto) Eos % (Auto) Lymph # [place] # Seg Neutrophils % Seg Neuts % (Manual) Lymphocytes % (Manual) Seg Neutrophils # Lymphocytes # (Manual) APTT D-Dimer Heparin Anti-Xa Level POC ABG pH POC ABG pCO2 POC ABG pO2 Sodium Potassium 5.3 H Chloride Carbon Dioxide BUN 68 H Creatinine 2.2 H Glucose 187 H POC Glucose 145 H 263 H Hemoglobin A1c Lactic Acid Calcium Phosphorus Magnesium Alkaline Phosphatase Total Creatine Kinase CK-MB (CK-2) CK-MB (CK-2) Rel Index Troponin T NT-Pro-B Natriuret Pep Serum Total Protein Total Protein Albumin Bnonq-6-Guphmngwq PEP Interpretation LDL Cholesterol Direct HDL Cholesterol PTH Intact Urine Creatinine Urine Total Protein Valproic Acid Crossmatch 10/26/18 10/26/18 10/27/18 16:24 21:46 05:14 WBC 12.7 H RBC 2.94 L Hgb 8.2 L Hct 25.5 L MCH RDW 18.3 H Lymph % (Auto) 10.0 L [place] % (Auto) 14.3 H Eos % (Auto) Lymph # [place] # 1.8 H Seg Neutrophils % 73.4 H Seg Neuts % (Manual) Lymphocytes % (Manual) Seg Neutrophils # 9.3 H Lymphocytes # (Manual) APTT D-Dimer Heparin Anti-Xa Level POC ABG pH POC ABG pCO2 POC ABG pO2 Sodium Potassium Chloride Carbon Dioxide BUN Creatinine Glucose POC Glucose 188 H 273 H Hemoglobin A1c Lactic Acid Calcium Phosphorus Magnesium Alkaline Phosphatase Total Creatine Kinase CK-MB (CK-2) CK-MB (CK-2) Rel Index Troponin T NT-Pro-B Natriuret Pep Serum Total Protein Total Protein Albumin Uktdv-5-Ppieplubo PEP Interpretation LDL Cholesterol Direct HDL Cholesterol PTH Intact Urine Creatinine Urine Total Protein Valproic Acid Crossmatch 10/27/18 10/27/18 10/27/18 05:14 09:08 11:56 WBC RBC Hgb Hct MCH RDW Lymph % (Auto) [place] % (Auto) Eos % (Auto) Lymph # [place] # Seg Neutrophils % Seg Neuts % (Manual) Lymphocytes % (Manual) Seg Neutrophils # Lymphocytes # (Manual) APTT D-Dimer Heparin Anti-Xa Level POC ABG pH POC ABG pCO2 POC ABG pO2 Sodium 136 L Potassium 5.1 H Chloride 97.7 L Carbon Dioxide BUN 67 H Creatinine 1.7 H Glucose POC Glucose 131 H 169 H Hemoglobin A1c Lactic Acid Calcium Phosphorus Magnesium Alkaline Phosphatase Total Creatine Kinase CK-MB (CK-2) CK-MB (CK-2) Rel Index Troponin T NT-Pro-B Natriuret Pep Serum Total Protein Total Protein Albumin Hruxg-3-Dkuhcsvab PEP Interpretation LDL Cholesterol Direct HDL Cholesterol PTH Intact Urine Creatinine Urine Total Protein Valproic Acid Crossmatch 10/27/18 10/27/18 10/28/18 16:27 21:53 03:24 WBC RBC 2.82 L Hgb 8.1 L Hct 24.6 L MCH RDW 18.6 H Lymph % (Auto) [place] % (Auto) 13.8 H Eos % (Auto) Lymph # [place] # 1.3 H Seg Neutrophils % Seg Neuts % (Manual) Lymphocytes % (Manual) Seg Neutrophils # Lymphocytes # (Manual) APTT D-Dimer Heparin Anti-Xa Level POC ABG pH POC ABG pCO2 POC ABG pO2 Sodium Potassium Chloride Carbon Dioxide BUN Creatinine Glucose POC Glucose 129 H 118 H Hemoglobin A1c Lactic Acid Calcium Phosphorus Magnesium Alkaline Phosphatase Total Creatine Kinase CK-MB (CK-2) CK-MB (CK-2) Rel Index Troponin T NT-Pro-B Natriuret Pep Serum Total Protein Total Protein Albumin Sfpiy-8-Enjqxgyrs PEP Interpretation LDL Cholesterol Direct HDL Cholesterol PTH Intact Urine Creatinine Urine Total Protein Valproic Acid Crossmatch 10/28/18 10/28/18 10/28/18 03:24 08:10 11:59 WBC RBC Hgb Hct MCH RDW Lymph % (Auto) [place] % (Auto) Eos % (Auto) Lymph # [place] # Seg Neutrophils % Seg Neuts % (Manual) Lymphocytes % (Manual) Seg Neutrophils # Lymphocytes # (Manual) APTT D-Dimer Heparin Anti-Xa Level POC ABG pH POC ABG pCO2 POC ABG pO2 Sodium Potassium Chloride Carbon Dioxide BUN 62 H Creatinine Glucose 121 H POC Glucose 115 H 124 H Hemoglobin A1c Lactic Acid Calcium Phosphorus Magnesium Alkaline Phosphatase Total Creatine Kinase CK-MB (CK-2) CK-MB (CK-2) Rel Index Troponin T NT-Pro-B Natriuret Pep Serum Total Protein Total Protein Albumin Subir-4-Eqqghyfqn PEP Interpretation LDL Cholesterol Direct HDL Cholesterol PTH Intact Urine Creatinine Urine Total Protein Valproic Acid Crossmatch 10/28/18 10/28/18 10/28/18 17:25 20:07 23:52 WBC RBC Hgb Hct MCH RDW Lymph % (Auto) [place] % (Auto) Eos % (Auto) Lymph # [place] # Seg Neutrophils % Seg Neuts % (Manual) Lymphocytes % (Manual) Seg Neutrophils # Lymphocytes # (Manual) APTT D-Dimer Heparin Anti-Xa Level POC ABG pH POC ABG pCO2 POC ABG pO2 Sodium Potassium Chloride Carbon Dioxide BUN Creatinine Glucose POC Glucose 171 H 111 H 256 H Hemoglobin A1c Lactic Acid Calcium Phosphorus Magnesium Alkaline Phosphatase Total Creatine Kinase CK-MB (CK-2) CK-MB (CK-2) Rel Index Troponin T NT-Pro-B Natriuret Pep Serum Total Protein Total Protein Albumin Gapub-8-Bfufpjtzk PEP Interpretation LDL Cholesterol Direct HDL Cholesterol PTH Intact Urine Creatinine Urine Total Protein Valproic Acid Crossmatch 10/29/18 10/29/18 10/29/18 04:50 07:41 11:00 WBC RBC Hgb Hct MCH RDW Lymph % (Auto) [place] % (Auto) Eos % (Auto) Lymph # [place] # Seg Neutrophils % Seg Neuts % (Manual) Lymphocytes % (Manual) Seg Neutrophils # Lymphocytes # (Manual) APTT D-Dimer Heparin Anti-Xa Level POC ABG pH POC ABG pCO2 POC ABG pO2 Sodium Potassium 5.1 H Chloride Carbon Dioxide BUN 56 H Creatinine Glucose 123 H POC Glucose 131 H 205 H Hemoglobin A1c Lactic Acid Calcium Phosphorus Magnesium Alkaline Phosphatase Total Creatine Kinase CK-MB (CK-2) CK-MB (CK-2) Rel Index Troponin T NT-Pro-B Natriuret Pep Serum Total Protein Total Protein Albumin Tvata-1-Nmstenktf PEP Interpretation LDL Cholesterol Direct HDL Cholesterol PTH Intact Urine Creatinine Urine Total Protein Valproic Acid Crossmatch 10/29/18 10/30/18 10/30/18 20:46 05:19 07:49 WBC RBC Hgb Hct MCH RDW Lymph % (Auto) [place] % (Auto) Eos % (Auto) Lymph # [place] # Seg Neutrophils % Seg Neuts % (Manual) Lymphocytes % (Manual) Seg Neutrophils # Lymphocytes # (Manual) APTT D-Dimer Heparin Anti-Xa Level POC ABG pH POC ABG pCO2 POC ABG pO2 Sodium Potassium 5.1 H Chloride Carbon Dioxide BUN 48 H Creatinine Glucose 170 H POC Glucose 197 H 176 H Hemoglobin A1c Lactic Acid Calcium Phosphorus Magnesium Alkaline Phosphatase Total Creatine Kinase CK-MB (CK-2) CK-MB (CK-2) Rel Index Troponin T NT-Pro-B Natriuret Pep Serum Total Protein Total Protein Albumin Gfyqd-1-Mkdvsujpd PEP Interpretation LDL Cholesterol Direct HDL Cholesterol PTH Intact Urine Creatinine Urine Total Protein Valproic Acid Crossmatch 10/30/18 10/30/18 11:43 16:39 WBC RBC Hgb Hct MCH RDW Lymph % (Auto) [place] % (Auto) Eos % (Auto) Lymph # [place] # Seg Neutrophils % Seg Neuts % (Manual) Lymphocytes % (Manual) Seg Neutrophils # Lymphocytes # (Manual) APTT D-Dimer Heparin Anti-Xa Level POC ABG pH POC ABG pCO2 POC ABG pO2 Sodium Potassium Chloride Carbon Dioxide BUN Creatinine Glucose POC Glucose 237 H 185 H Hemoglobin A1c Lactic Acid Calcium Phosphorus Magnesium Alkaline Phosphatase Total Creatine Kinase CK-MB (CK-2) CK-MB (CK-2) Rel Index Troponin T NT-Pro-B Natriuret Pep Serum Total Protein Total Protein Albumin Jpfme-6-Qdwigexxs PEP Interpretation LDL Cholesterol Direct HDL Cholesterol PTH Intact Urine Creatinine Urine Total Protein Valproic Acid Crossmatch Allied health notes reviewed: nursing
== END 2018-10-30 19:00 | disposition home or self-care (01) | DRG 981 ==
LOC: ED 10:27 → CC1 13:00 → 4A 10-13 21:11 → 3A 10-23 17:17
PROVIDERS: ADMIT Internal Medicine; ATTEND Internal Medicine
PROC: 4A033R1 Measurement of Arterial Saturation, Peripheral, Percutaneous Approach (ICD-10-PCS; 2018-10-10)
PROC: 05H433Z Insertion of Infusion Device into Left Innominate Vein, Percutaneous Approach (ICD-10-PCS; 2018-10-11)
PROC: B54NZZA Ultrasonography of Left Upper Extremity Veins, Guidance (ICD-10-PCS; 2018-10-11)
PROC: 5A1D70Z Performance of Urinary Filtration, Intermittent, Less than 6 Hours Per Day (ICD-10-PCS; 2018-10-11)
PROC: 5A1D70Z Performance of Urinary Filtration, Intermittent, Less than 6 Hours Per Day (ICD-10-PCS; 2018-10-12)
PROC: 5A1D70Z Performance of Urinary Filtration, Intermittent, Less than 6 Hours Per Day (ICD-10-PCS; 2018-10-14)
PROC: 5A1D70Z Performance of Urinary Filtration, Intermittent, Less than 6 Hours Per Day (ICD-10-PCS; 2018-10-15)
PROC: 5A1D70Z Performance of Urinary Filtration, Intermittent, Less than 6 Hours Per Day (ICD-10-PCS; 2018-10-16)
PROC: 5A1D70Z Performance of Urinary Filtration, Intermittent, Less than 6 Hours Per Day (ICD-10-PCS; 2018-10-17)
PROC: 5A1D70Z Performance of Urinary Filtration, Intermittent, Less than 6 Hours Per Day (ICD-10-PCS; 2018-10-18)
PROC: 5A1D70Z Performance of Urinary Filtration, Intermittent, Less than 6 Hours Per Day (ICD-10-PCS; 2018-10-19)
PROC: 30233N1 Transfusion of Nonautologous Red Blood Cells into Peripheral Vein, Percutaneous Approach (ICD-10-PCS; 2018-10-22)
PROC: 0PSV04Z Reposition Left Finger Phalanx with Internal Fixation Device, Open Approach (ICD-10-PCS; principal; 2018-10-28)
DX: I21.A1 Myocardial infarction type 2 (principal); N17.0 Acute kidney failure with tubular necrosis; G93.40 Encephalopathy, unspecified; J96.01 Acute respiratory failure with hypoxia; J96.02 Acute respiratory failure with hypercapnia; I50.23 Acute on chronic systolic (congestive) heart failure; I24.9 Acute ischemic heart disease, unspecified; S62.611A Displaced fracture of proximal phalanx of left index finger, initial encounter for closed fracture; E87.5 Hyperkalemia; I95.9 Hypotension, unspecified; D63.8 Anemia in other chronic diseases classified elsewhere; E78.5 Hyperlipidemia, unspecified; F31.9 Bipolar disorder, unspecified; N50.89 Other specified disorders of the male genital organs; E66.9 Obesity, unspecified; E87.2 Acidosis; D72.819 Decreased white blood cell count, unspecified; E11.649 Type 2 diabetes mellitus with hypoglycemia without coma; N18.9 Chronic kidney disease, unspecified; I13.0 Hypertensive heart and chronic kidney disease with heart failure and stage 1 through stage 4 chronic kidney disease, or unspecified chronic kidney disease; E11.22 Type 2 diabetes mellitus with diabetic chronic kidney disease; E87.3 Alkalosis; Y92.238 Other place in hospital as the place of occurrence of the external cause; Y92.89 Other specified places as the place of occurrence of the external cause; Z68.33 Body mass index [BMI] 33.0-33.9, adult; Z82.49 Family history of ischemic heart disease and other diseases of the circulatory system; Z83.3 Family history of diabetes mellitus; Z79.4 Long term (current) use of insulin; Z79.899 Other long term (current) drug therapy; Y93.89 Activity, other specified; Y99.8 Other external cause status
CPT/HCPCS: 36415; 36556; 36600; 70450; 71045; 76604; 76770; 78582; 80048; 80053; 80061; 80074; 80164; 81001; 82140; 82150; 82550; 82553; 82570; 82803; 82962; 83036; 83690; 83735; 83880; 83970; 84075; 84100; 84132; 84156; 84165; 84300; 84450; 84460; 84484; 85007; 85014; 85018; 85025; 85027; 85049; 85379; 85520; 85610; 85730; 86021; 86038; 86140; 86160; 86850; 86900; 86901; 86920; 87040; 93005; 93010; 93306; 93970; 93975; 94760; 95819; 96365; 96366; 96375; G0378; A9270-GY; A9540; A9558; C1713; C1752; J0360; J0610; J0690; J0885; J1120; J1250; J1630; J1644; J1815; J1940; J2250; J2270; J2405; J2704; J3010; J7030; J7040; J7050; J7070; P9016

== ENCOUNTER 2018-11-11 10:20 | Emergency (ER) | payer MEDICAID ==
--- NOTE | 2018-11-11 10:30 | Emergency Department Report ---
ED CPR HPI - General Stated Complaint: CARDIAC ARREST Time Seen by Provider: 11/11/18 10:25 - History of Present Illness Initial Comments: Patient is 48 years old male with history of congestive heart failure, hypertension diabetes. Patient brought to the emergency room via EMS from a long term in full cardiac arrest. EMS stated that when I arrived to the scene patient is in asystole with blood coming out from his mouth. EMS is stated that onset of cardiac arrest is unknown, patient was found by the long term staff. ACLS protocol initiated by EMS and continued in the emergency room. Patient upon arrival to the emergency room is in asystole, pupils are fixed and dilated. Patient pronounced at 10:16 AM. No family around at this moment. MD Complaint: found unresponsive, unknown -: unknown Place: NH/SNF Bystander CPR Performed: No AED Applied by Bystander/Voice Over Artist: No Shock Advised: No Initial Findings in the Field: unresponsive, no pulse, systole ROSC in the Field: No Associated Injuries: No Treatments Prior to Arrival: other airway device - Related Data Previous Rx's Medication Instructions Recorded Last Taken Type Aspirin [Aspirin TAB] 325 mg PO QDAY #30 tablet 10/30/18 Unknown Rx Carvedilol [Coreg] 6.25 mg PO BID #60 tablet 10/30/18 Unknown Rx Divalproex [Leonardo Duran] 500 mg PO BID #60 10/30/18 Unknown Rx Famotidine [Pepcid] 20 mg PO DAILY #30 tablet 10/30/18 Unknown Rx Ferrous Sulfate [Feosol 325 MG tab] 325 mg PO QDAY #30 tablet 10/30/18 Unknown Rx Furosemide [Lasix TAB] 80 mg PO DAILY@0600 30 Days tablet 10/30/18 Unknown Rx Insulin NPH/Regular [NovoLIN 70/30] 8 unit SUB-Q BIDDIAB units 10/30/18 Unknown Rx Insulin Regular, Human [HumuLIN R] 1 units SUB-Q ACHS PRN #100 units 10/30/18 Unknown Rx Pravastatin [Pravachol] 40 mg PO QHS #30 tablet 10/30/18 Unknown Rx Sodium Polystyrene [Kionex] 30 gm PO DAILY 2 Days oral.liqd 10/30/18 Unknown Rx metOLazone [Zaroxolyn] 5 mg PO DAILY@1730 #30 tablet 10/30/18 Unknown Rx oxyCODONE /ACETAMINOPHEN [Percocet 1 tab PO Q8H PRN #25 tablet 10/30/18 Unknown Rx 5/325 mg] risperiDONE [RisperDAL] 1 mg PO QHS #30 tablet 10/30/18 Unknown Rx Allergies Allergy/AdvReac Type Severity Reaction Status Date / Time No Known Allergies Allergy Unverified 10/09/18 10:44 ED Review of Systems ROS: Stated complaint: CARDIAC ARREST Other details as noted in HPI Comment: Unobtainable due to pts medical conditions ED Past Medical Hx - Past Medical History Hx Hypertension: Yes Hx Congestive Heart Failure: Yes Hx Diabetes: Yes Hx Deep Vein Thrombosis: No Hx Psychiatric Treatment: Yes Additional medical history: hyperlipidemia, anemia - Surgical History Hx Pacemaker: No Hx Internal Defibrillator: No Additional Surgical History: Left hip surgery - Social History Smoking Status: Never Smoker - Medications Home Medications: Home Medications Medication Instructions Recorded Confirmed Last Taken Type Aspirin [Aspirin TAB] 325 mg PO QDAY #30 tablet 10/30/18 Unknown Rx Carvedilol [Coreg] 6.25 mg PO BID #60 tablet 10/30/18 Unknown Rx Divalproex [Leonardo Duran] 500 mg PO BID #60 10/30/18 10/09/18 Unknown Rx Famotidine [Pepcid] 20 mg PO DAILY #30 tablet 10/30/18 Unknown Rx Ferrous Sulfate [Feosol 325 MG tab] 325 mg PO QDAY #30 tablet 10/30/18 Unknown Rx Furosemide [Lasix TAB] 80 mg PO DAILY@0600 30 Days tablet 10/30/18 Unknown Rx Insulin NPH/Regular [NovoLIN 70/30] 8 unit SUB-Q BIDDIAB units 10/30/18 Unknown Rx Insulin Regular, Human [HumuLIN R] 1 units SUB-Q ACHS PRN #100 units 10/30/18 Unknown Rx Pravastatin [Pravachol] 40 mg PO QHS #30 tablet 10/30/18 Unknown Rx Sodium Polystyrene [Kionex] 30 gm PO DAILY 2 Days oral.liqd 10/30/18 Unknown Rx metOLazone [Zaroxolyn] 5 mg PO DAILY@1730 #30 tablet 10/30/18 Unknown Rx oxyCODONE /ACETAMINOPHEN [Percocet 1 tab PO Q8H PRN #25 tablet 10/30/18 Unknown Rx 5/325 mg] risperiDONE [RisperDAL] 1 mg PO QHS #30 tablet 10/30/18 Unknown Rx ED Physical Exam - General General appearance: other (CPR in progress) - Head Head exam: Present: atraumatic, normocephalic - Eye Pupils: Present: other (fixed and dilated) - ENT ENT exam: Present: other (blood coming out from mouth and ET tube.) - Respiratory Respiratory exam: Present: other (no spontaneous breathing) - Cardiovascular Cardiovascular Exam: Present: other (CPR in progress) - GI/Abdominal GI/Abdominal exam: Present: soft - Neurological Exam Neurological exam: Present: other (CPR in progress) - Skin Skin exam: Present: warm Critical Care Time: Yes Critical care time in (mins) excluding proc time.: 30 Critical care attestation.: If time is entered above; I have spent that time in minutes in the direct care of this critically ill patient, excluding procedure time. ED Disposition Clinical Impression: Cardiopulmonary arrest Disposition: [id number] Is pt being admited?: No Condition: Stable
== END 2018-11-11 16:35 ==
LOC: ED 10:20
DX: I46.9 Cardiac arrest, cause unspecified (principal)
CPT/HCPCS: 92950; 99285; 99291